=== PATIENT | female | born 1995 | race African-American/Black ===

== ENCOUNTER 2017-05-31 12:06 | Emergency (ER) | payer OTHER ==
--- OUTSIDE RECORDS SUMMARY | 2017-05-31 12:08 | XMS REPORT ---
:1995 Author Organization [facility] Address Unavailable , Allergies, Adverse Reactions, Alerts Allergy Name Reaction Description Start Date Severity Status Provider No Known Allergies Jazmine Good Conditions or Problems Problem Name Problem Onset Status Entry Provider Comment Standard Annotate Code Date Date Description 22 weeks V28.9 Active Yamil Encounter for gestation of Tommie unspecified DO screening of mother ABNORMAL 796.5 Active Yamil Abnormal FINDING ON Tommie finding on DO SCREENING screening Encounter for V22.1 Active Yamil Supervision of supervision of Tommie other normal other normal DO , second trimester Hx of bipolar V11.8 Active Yamil Personal affective Tommie history of disorder DO other mental disorders Hx of V12.09 Active Yamil Other personal chlamydial / Tommie history of infection DO infectious and parasitic disease Tobacco use 649.01 Active Yamil Tobacco use disorder Tommie disorder complicating DO complicating , , childbirth, or childbirth, or the the puerperium, puerperium, delivered, delivered, with or with or without without mention of mention of antepartum antepartum condition condition Medication List Medication Instructions Start Stop Generic NDC Status Provider Patient Date Date Name Instruction VITAFOL ULTRA take 1 PRENAT-FE [id number] Active Yamil Active 29-0.6-0.4-200 capsule [id number]-CM-DHA Reilly MG CAPS daily DO Vital Signs Date Name Value Unit Range Description blood pressure, diastolic 68 mm[Hg] BP mclaughlin blood pressure, systolic 113 mm[Hg] BP sys height E&M 68 [in_us] Bdy height pulse rate E&M 72 /min Heart rate respiratory rate E&M 16 /min Resp rate temperature E&M 98.1 [degF] Body temperature weight E&M 163.13 [lb_av] Weight Measured Diagnostic Results Date Name Value Unit Range Description Office Visit: Return Visit 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
--- OUTSIDE RECORDS SUMMARY | 2017-05-31 12:08 | XMS REPORT ---
:1995 Author Organization [facility] Address [address] [place] [address] Dr. Kraft [address] [place] [id number] Care Team Providers Name Role Phone UNKNOWN, REFFERING Primary Care Provider Unavailable Problems This patient has no known problems. Allergies, Adverse Reactions, Alerts This patient has no known allergies or adverse reactions. Medications This patient has no known medications. Encounters Start End Encounter Admission Attending Care Care Encounter Date/Time Date/Time Type Type Clinicians Facility Department ID 2017-06-02 2017-06-02 Outpatient [facility] [id number] 00:00:00 00:00:00 2016-12-05 2016-12-05 Outpatient [facility] [id number] 00:00:00 00:00:00 2016-12-05 2016-12-05 Outpatient [facility] [id number] 00:00:00 00:00:00 2016-11-28 2016-11-28 Outpatient [facility] [id number] 00:00:00 00:00:00 2016-11-26 2016-11-26 Outpatient [facility] [id number] 16:32:00 16:32:00 2016-11-26 2016-11-26 Outpatient [facility] [id number] 00:00:00 00:00:00 2016-11-13 2016-11-13 Emergency [facility] [id number] 02:04:55 02:04:55 2016-08-25 2016-08-25 Emergency [facility] [id number] 13:00:00 13:00:00
[2017-05-31] MEDS ORDERED: METOCLOPRAMIDE 10 MG/2mL INJ ONE (13:00)
[2017-05-31] MEDS ORDERED: ACETAMINOPHEN 500 MG TAB ONE (13:09)
[2017-05-31 13:10] LABS: Absolute Lymphocytes (CBC) 1.7 K/uL (0.7-4.9); Absolute Monocytes 0.6 K/uL (0.1-1.3); Basophils % 0.4 % (0-1.3); Eosinophils % 1.6 % (0-4.4); Hematocrit 38.7 % (36.0-45.0); Lymphocytes % 31.3 % (15.3-44.8); MCH 30.6 pg (27.0-35.0); MCV 93.7 fL (80-100); MPV 8.8 fL (7.6-11.3); Monocytes % 10.5 % (3.3-12.3); RBC Red Blood Cell Count 4.14 M/uL (3.86-4.86)
[2017-05-31 13:24] LABS: BUN Blood Urea Nitrogen 10 mg/dL (6-20); Bicarbonate 22 mEq/L (21-31); Glomerular Filtration Rate > 90 mL/min (=/>90); Glucose Level 78 mg/dL (65-120); Potassium 3.5 mEq/L (3.6-5.0); Sodium Level 135 mEq/L (135-145)
[2017-05-31 13:28] LABS: Urine Blood 3+ (NEG); Urine Glucose NEGATIVE (NEG); Urine Protein 1+ (NEG)
--- NOTE | 2017-05-31 13:28 | ER ---
Nurse's Notes [facility] Name: Tenzin Snider Age: 21 yrs Sex: Female : 1995 Arrival Date: 05/31/2017 Time: 12:07 Bed 14 Private MD: Diagnosis: Threatened Presentation: 05/31 12:09 Presenting complaint: Patient states: Vaginal spotting and severe abdominal cramping aj1 that started this morning, she has taken a test which was positive but has not seen PHP ARCHITECT yet. States she is unsure is her LMP was Mar 16, 2017 or Apr 16, 2017. Transition of care: patient was not received from another setting of care. Onset of symptoms was May 31, 2017. Care prior to arrival: None. 12:09 Method Of Arrival: EMS: [facility] aj1 12:09 Acuity: CORI 3 aj1 Triage Assessment: 12:09 General: Appears distressed, uncomfortable, Behavior is cooperative, restless. Pain: aj1 Complains of pain in left lower quadrant and right lower quadrant Pain radiates to left upper quadrant Pain currently is 10 out of 10 on a pain scale. Quality of pain is described as crampy. : Reports vaginal bleeding that is spotty. PHP ARCHITECT: 12:08 2, 0, Living 1 kb 12:09 Patient states she is unsure if her LMP was Mar 16 or Apr 16 aj1 - Immunization history:: Adult Immunizations not up to date. - Social history:: Smoking status: Patient uses tobacco products, 3 cigarettes/day. Screenin:20 Abuse screen: Denies threats or abuse. Denies injuries from another. Nutritional jl7 screening: No deficits noted. Tuberculosis screening: No symptoms or risk factors identified. Fall Risk IV access (20 points). Total Kwan Fall Scale indicates No Risk (0-24 pts). Assessment: 12:20 General: Appears uncomfortable, Behavior is anxious, crying. Pain: Complains of pain in jl7 right lower quadrant and left lower quadrant Pain radiates to left upper quadrant Pain currently is 7 out of 10 on a pain scale. Quality of pain is described as crampy, Is intermittent. Neuro: Level of Consciousness is awake, alert, obeys commands, Oriented to person, place, time, situation. Cardiovascular: Patient's skin is warm and dry. Respiratory: Airway is patent Respiratory effort is even, unlabored, Respiratory pattern is symmetrical, tachypnea. GI:. GI: Abdomen is flat, non-distended, Bowel sounds present X 4 quads. : Reports vaginal bleeding that is spotty, since this morning. Derm: Skin is dry, Skin is normal, Skin temperature is warm. 13:32 Reassessment: Patient states that she wants to leave, she does not want to wait for aj1 test results because she is hungry and tired. Explained to patient that results are not back and full work up is needed to rule out tubal and risk of rupture of fallopian tubes. Patient states that she still wants to leave. Notified Rocco Marie NP who spoke with patient. Patient states that she still wants to leave. AMA form was provided and signed by patient. Patient and her were instructed to return to the emergency room immediately if symptoms worsen. Vital Signs: 12:09 BP 126 / 89; Pulse 69; Resp 22; Temp 98.2; Pulse Ox 99% on R/A; Weight 72.57 kg; Height aj1 5 ft. 8 in. (172.72 cm); Pain 10/10; 12:09 Body Mass Index 24.33 (72.57 kg, 172.72 cm) aj1 ED Course: 12:07 Patient arrived in ED. kb 12:09 Lottie Menchaca, RN is Primary Nurse. aj1 12:09 Arm band placed on. aj1 12:11 Triage completed. aj1 12:11 Israel Jones, SERAFIN is Primary Nurse. jl7 12:11 Delmi Marie FNP-C is PHCP. kb 12:11 Rafael Guthrie MD is Attending Physician. kb 12:20 Patient has correct armband on for positive identification. Bed in low position. Call jl7 light in reach. Side rails up X 1. Pulse ox on. NIBP on. Warm blanket given. 12:30 Missed attempt(s): 20 gauge in right forearm. Bleeding controlled, band aid applied, jl7 catheter tip intact. 12:35 Missed attempt(s): 22 gauge in left hand. Bleeding controlled, band aid applied, jl7 catheter tip intact. 12:47 Inserted saline lock: 22 gauge in right hand, using aseptic technique. jl7 13:03 Initial lab(s) drawn, by me, sent to lab. Urine collected: clean catch specimen, cloudy.jl7 13:35 IV discontinued, intact, bleeding controlled, No redness/swelling at site. Pressure aj1 dressing applied. Administered Medications: 12:15 Drug: Tylenol 1000 mg Route: PO; jl7 12:15 Drug: Reglan 10 mg Route: IVP; Site: right hand; jl7 Point of Care Testing: Urine : 12:48 hCG Reading: Positive; Control Reading: Negative; jl7 Outcome: 13:35 AMA AMA form signed aj1 13:35 Condition: stable 13:35 Discharge instructions given to patient, Instructed on return to ER immediately if symptoms worsen 13:38 Patient left the ED. jl7 Signatures: Delmi Marie, LILIAM-C LILIAM-Lottie Meek RN RN aj1 Israel Jones RN RN jl7
--- NOTE | 2017-05-31 13:28 | EDPHYS ---
Physician Documentation [facility] Name: Tenzin Snider Age: 21 yrs Sex: Female : 1995 Arrival Date: 05/31/2017 Time: 12:07 Bed 14 Private MD: ED Physician Rafael Guthrie HPI: 05/31 12:08 This 21 yrs old Black Female presents to ER via Unassigned with complaints of abd kb cramping, spotting. 12:08 The patient presents to the emergency department with abdominal pain, of the right kb lower quadrant and left lower quadrant, that started this morning, described as constant, crampy, vaginal bleeding, described as spotting. course: care: none, Leakage of Fluid: none appreciated, Ultrasound: the patient has not had an ultrasound, Risk/complications: no obvious risks or complications are appreciated. Previous pregnancies: in previous pregnancies patient has had. Associated signs and symptoms: Pertinent positives: abdominal pain, vaginal bleeding, Pertinent negatives: chest pain, diarrhea, dysuria, fever, frequency, nausea, ruptured membranes, seizure, shortness of breath, vaginal discharge, vomiting. The patient has not experienced similar symptoms in the past. The patient has not recently seen a physician. Pt reports abd cramping, then spotting. All started this morning. 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 - Social history:: Smoking status: Patient uses tobacco products, 3 cigarettes/day. ROS: 12:08 Constitutional: Negative for fever, chills, and weight loss, Cardiovascular: Negative kb for chest pain, palpitations, and edema, Respiratory: Negative for shortness of breath, cough, wheezing, and pleuritic chest pain, Back: Negative for injury and pain, MS/Extremity: Negative for injury and deformity, Skin: Negative for injury, rash, and discoloration, Neuro: Negative for headache, weakness, numbness, tingling, and seizure. 12:08 Abdomen/GI: Positive for abdominal cramps. 12:08 : Positive for vaginal bleeding. Exam: 12:08 Constitutional: This is a well developed, well nourished patient who is awake, alert, kb and in no acute distress. Head/Face: Normocephalic, atraumatic. Chest/axilla: Normal chest wall appearance and motion. Nontender with no deformity. No lesions are appreciated. Cardiovascular: Regular rate and rhythm with a normal S1 and S2. No gallops, murmurs, or rubs. Normal PMI, no JVD. No pulse deficits. Respiratory: Lungs have equal breath sounds bilaterally, clear to auscultation and percussion. No rales, rhonchi or wheezes noted. No increased work of breathing, no retractions or nasal flaring. Abdomen/GI: Soft, non-tender, with normal bowel sounds. No distension or tympany. No guarding or rebound. No evidence of tenderness throughout. Skin: Warm, dry with normal turgor. Normal color with no rashes, no lesions, and no evidence of cellulitis. MS/ Extremity: Pulses equal, no cyanosis. Neurovascular intact. Full, normal range of motion. Neuro: Awake and alert, GCS 15, oriented to person, place, time, and situation. Cranial nerves II-XII grossly intact. Motor strength 5/5 in all extremities. Sensory grossly intact. Cerebellar exam normal. Normal gait. Vital Signs: 12:09 BP 126 / 89; Pulse 69; Resp 22; Temp 98.2; Pulse Ox 99% on R/A; Weight 72.57 kg; Height aj1 5 ft. 8 in. (172.72 cm); Pain 10/10; 12:09 Body Mass Index 24.33 (72.57 kg, 172.72 cm) aj1 MDM: 12:07 Patient medically screened. 12:08 Data reviewed: vital signs, nurses notes. Data interpreted: Pulse oximetry: on room air kb is 100 %. Interpretation: normal. 13:24 ED course: Pt states she wants to leave. States "I'm hungry and tired. I will just make kb an appt with my OB to see if I'm still . I know its a miscarriage." Educated on risks of leaving AMA. Verbal understanding received. . 05/31 12:07 Order name: Quantitative Hcg kb 05/31 12:07 Order name: Abo/rh Typing kb 05/31 12:07 Order name: Basic Metabolic Panel 05/31 12:07 Order name: CBC with Diff 05/31 12:45 Order name: Urine Dipstick--Ancillary (enter results) ag 05/31 12:45 Order name: Urine --Ancillary (enter results) ag 05/31 13:12 Order name: CBC with Automated Diff; Complete Time: 13:12 [facility] 05/31 13:24 Order name: Basic Metabolic Panel [facility] 05/31 13:26 Order name: ABO/RH no charge; Complete Time: 13:27 [facility] 05/31 13:28 Order name: Urine --Ancillary; Complete Time: 13:28 [facility] 05/31 13:28 Order name: Urine Dipstick-Ancillary; Complete Time: 13:28 [facility] 05/31 13:30 Order name: ABO/RH typing [facility] 05/31 12:07 Order name: Urine Test (obtain specimen); Complete Time: 13:27 kb 05/31 12:07 Order name: IV Saline Lock; Complete Time: 13:27 kb 05/31 12:07 Order name: Labs collected and sent; Complete Time: 13:27 kb 05/31 12:07 Order name: NPO; Complete Time: 13:27 kb 05/31 12:07 Order name: Urine Dipstick-Ancillary (obtain specimen); Complete Time: 13:27 kb Administered Medications: 12:15 Drug: Tylenol 1000 mg Route: PO; jl7 12:15 Drug: Reglan 10 mg Route: IVP; Site: right hand; jl7 Point of Care Testing: Urine : 12:48 hCG Reading: Positive; Control Reading: Negative; jl7 Disposition: 06/01 10:44 Co-signature as Attending Physician, Rafael Guthrie MD I agree with the assessment and coleman plan of care. Disposition: 05/31/17 13:28 Patient has left against medical advice. Impression: Threatened . - Patients states they are going to Home. - Condition is Stable. Follow up: Emergency Department; When: As needed; Reason: Worsening of condition. Follow up: Private Physician; When: 2 - 3 days; Reason: Recheck today's complaints, Continuance of care, Re-evaluation by your physician. - Problem is new. - Symptoms have improved. Signatures: Dispatcher [employer] [facility] Delmi Marie, RADHA RICKETTS-Lottie Meek RN RN aj1 Rafael Guthrie MD MD cha Leal, Jahala, RN RN jl7
[2017-05-31 13:46] VITALS: BP 126/89; TEMP 98.2; O2SAT 99
== END 2017-05-31 13:38 | disposition left against medical advice (07) ==
LOC: ER 12:06
DX: O20.0 Threatened abortion (principal); Z72.0 Tobacco use
CPT/HCPCS: 36415; 80048; 81003; 81025; 84702; 85025; 86900; 86901; 96374; 99284; J2765

== ENCOUNTER 2019-03-06 15:24 | Emergency (ER) | payer OTHER ==
--- OUTSIDE RECORDS SUMMARY | 2019-03-06 15:26 | XMS REPORT ---
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
--- OUTSIDE RECORDS SUMMARY | 2019-03-06 15:26 | XMS REPORT ---
:1995 Author Organization [facility] Address [address] [place] [address] Dr. Kraft [address] [place] [address] Care Team Providers Name Role Phone UNKNOWN, REFFERING Primary Care Provider Unavailable Problems This patient has no known problems. Allergies, Adverse Reactions, Alerts This patient has no known allergies or adverse reactions. Medications This patient has no known medications. Encounters Start End Encounter Admission Attending Care Care Encounter Date/Time Date/Time Type Type Clinicians Facility Department ID 2017-09-29 2017-09-29 Outpatient [facility] [id number] 17:11:19 17:11:19 2017-06-02 2017-06-02 Emergency [facility] [id number] 20:36:43 20:36:43 2017-06-02 2017-06-02 Outpatient [facility] [id number] 00:00:00 00:00:00 2016-12-05 2016-12-05 Outpatient [facility] [id number] 00:00:00 00:00:00 2016-12-05 2016-12-05 Outpatient [facility] [id number] 00:00:00 00:00:00 2016-11-28 2016-11-28 Outpatient [facility] [id number] 00:00:00 00:00:00 2016-11-26 2016-11-26 Outpatient [facility] [id number] 16:32:00 16:32:00 2016-11-26 2016-11-26 Outpatient [facility] [id number] 00:00:00 00:00:00 2016-11-13 2016-11-13 Emergency [facility] [id number] 02:04:55 02:04:55 2016-08-25 2016-08-25 Emergency [facility] [id number] 13:00:00 13:00:00 Results Test Description Test Time Test Comments Text Results Atomic Results Result Comments CBC W/AUTO DIFF 2018-09-30 20:53:00 Test Item Value Reference Range Comments WHITE BLOOD CELL (test code=WBC) 8.7 x10 3/uL 3.2-11.5 RED BLOOD CELL (test code=RBC) 3.80 x10(6)/m 3.70-5.10 HEMOGLOBIN (test code=HGB) 11.8 g/dL 12.0-15.0 HEMATOCRIT (test code=HCT) 34.7 % 35.7-44.8 MEAN CELL VOLUME (test code=MCV) 91 fL 80-100 MEAN CELL HGB (test code=MCH) 31.2 pg 26.2-33.8 MEAN CELL HGB CONCENTRATION (test code=MCHC) 34.1 g/dL 30.0-34.0 RED CELL DISTRIBUTION WIDTH (test code=RDW) 14.6 % 11.3-14.5 PLATELET COUNT (test code=PLT) 194 x10 3/uL 130-408 MEAN PLATELET VOLUME (test code=MPV) 7.9 fl 6.4-10.5 NEUTROPHIL % (test code=NT%) 61.2 % 40.0-70.0 LYMPHOCYTE % (test code=LY%) 22.9 % 20-40 MONOCYTE % (test code=MO%) 15.5 % 1-10 EOSINOPHIL % (test code=EO%) 0.1 % 1.0-5.0 BASOPHIL % (test code=BA%) 0.3 % 0.0-1.0 NEUTROPHIL # (test code=NT#) 5.3 x10 3/uL 1.6-7.2 LYMPHOCYTE # (test code=LY#) 2.00 x10 3/uL 1.1-2.7 MONOCYTE # (test code=MO#) 1.3 x10 3/uL 0.3-0.8 EOSINOPHIL # (test code=EO#) 0.0 x10 3/uL 0.0-0.5 BASOPHIL # (test code=BA#) 0.0 x10 3/uL 0.0-0.1 BASIC METABOLIC [id number] 20:11:00 Test Item Value Reference Range Comments SODIUM (test code=NA) 133 mmol/L 135-145 POTASSIUM (test code=K) 3.1 mmol/L 3.6-5.0 CHLORIDE (test code=CL) 103 mmol/L 101-111 CARBON DIOXIDE (test 15 mmol/L 21-31 code=CO2) GLUCOSE (test code=GLU) 83 mg/dl 70-100 BLOOD UREA NITROGEN (test 5 mg/dl 6-20 code=BUN) GLOMERULAR FILTRATION >=60 max estimate >60 The estimated glomerular RATE (test code=GFR) filtration rate is computed usingpatient race, age (>18), sex, and serum creatinine. If anyof the needed data elements are missing the Laboratory cannot compute an estimation of the glomerular filtration rate. CREATININE (test 0.70 mg/dL 0.44-1.03 code=CREAT) CALCIUM (test code=CA) 9.5 mg/dL 8.5-10.5 LIVER FUNCTION [id number] 20:11:00 Test Item Value Reference Range Comments TOTAL PROTEIN (test code=PROT) 7.5 g/dL 6.7-8.2 ALBUMIN (test code=ALB) 4.0 g/dL 3.2-5.5 BILIRUBIN TOTAL (test code=BILT) 1.30 mg/dL 0.2-1.3 BILIRUBIN DIRECT (test code=BILD) 0.2 mg/dL 0.00-0.20 SGOT/AST (test code=AST) 25 U/L 10-42 SGPT/ALT (test code=ALT) 14 U/L 10-60 ALKALINE PHOSPHATASE (test code=ALKP) 46 U/L 42-121 [id number] 20:11:00 Test Item Value Reference Range Comments ALCOHOL (test code=ALC) 6 mg/dl Interpretive Data:il: Ethanol Level To convert into legal units, divide result by 1,000 DRUGS OF ABUSE SCREEN [id number] 19:58:00 Test Item Value Reference Range Comments UR COCAINE (test code=COCAU) NEGATIVE NEGATIVE This is a toxicology qualitative screening test only. Ifconfirmatory testing is desired please request drug screenconfirmation. These results are unconfirmed and should beused only for medical purposes. Cut-off concentration for Cocaine is 300 ng/mLRecommended screening cut-off concentrations by the[facility] Abuse and Mental Health Services Administration. UR CANABINOIDS (test POSITIVE NEGATIVE This is a toxicology qualitative code=CANU) screening test only. Ifconfirmatory testing is desired please request drug screenconfirmation. These results are unconfirmed and should beused only for medical purposes. Cut-off concentration for THC is 50 ng/mLRecommended screening cut-off concentrations by theSubstance Abuse and Mental Health Services Administration. UR AMPHETAMINE (test POSITIVE NEGATIVE The ingestion of natural herbal code=AMPHU) and plant productscontaining Ephedra/Ephedra-Metabolites can produce in urineone or more substances capable of cross-reacting withAmphetamine/Methamphetamine immunoassays. This testprovides a preliminary result only. A more specificalternative chemical method must be used to obtain aconfirmed analytical result. This is a toxicology qualitative screening test only. Ifconfirmatory testing is desired please request drug screenconfirmation. These results are unconfirmed and should beused only for medical purposes. Cut-off concentration for Amphetamines is 1000 ng/mLRecommended screening cut-off concentrations by thebstance Abuse and Mental Health Services Administration. UR BARBITURATE (test NEGATIVE NEGATIVE This is a toxicology qualitative code=BARBQLU) screening test only. Ifconfirmatory testing is desired please request drug screenconfirmation. These results are unconfirmed and should beused only for medical purposes. Cut-off concentration for Barbiturates is 200 ng/mLRecommended screening cut-off concentrations by theSubstance Abuse and Mental Health Services Administration. UR BENZODIAZEPINE (test NEGATIVE NEGATIVE This is a toxicology qualitative code=BENZU) screening test only. Ifconfirmatory testing is desired please request drug screenconfirmation. These results are unconfirmed and should beused only for medical purposes. Cut-off concentration for Benzodiazepines is 200 ng/mLRecommended screening cut-off concentrations by theSubstance Abuse and Mental Health Services Administration. UR OPIATES QUAL (test NEGATIVE NEGATIVE This is a toxicology qualitative code=OPIAQLU) screening test only. Ifconfirmatory testing is desired please request drug screenconfirmation. These results are unconfirmed and should beused only for medical purposes. Cut-off concentration for Opiates is 300 ng/mLRecommended screening cut-off concentrations by theSubstance Abuse and Mental Health Services Administration. UR PHENCYCLIDINE (PCP) (test NEGATIVE NEGATIVE This is a toxicology qualitative code=PHENCU) screening test only. Ifconfirmatory testing is desired please request drug screenconfirmation. These results are unconfirmed and should beused only for medical purposes. Cut-off concentration for PCP is 25 ng/mLRecommended screening cut-off concentrations by the[facility] Abuse and Mental Health Services Administration. HCG SERUM [id number] 19:53:00 Test Item Value Reference Range Comments HCG SERUM QUAL (test POSITIVE NEGATIVE This is a qualitative screening code=HCGQL) test.The quantitative Bhcg may be helpful.Weakly positive results should be repeated in 48 hours. URINALYSIS [id number] 19:50:00 Test Item Value Reference Range Comments UA COLOR (test code=COLU) YELLOW YELLOW UA APPEARANCE (test code=APPU) Cloudy CLEAR UA GLUCOSE DIPSTICK (test code=DGLUU) NEGATIVE NEGATIVE UA BILIRUBIN DIPSTICK (test code=BILU) NEGATIVE NEGATIVE UA KETONE DIPSTICK (test code=KETU) Trace NEGATIVE UA SPECIFIC GRAVITY (test code=SGU) 1.008 1.001-1.030 UA BLOOD DIPSTICK (test code=LO) NEGATIVE NEGATIVE UA PH DIPSTICK (test code=VADIM) 7.0 5.0-9.0 UA PROTEIN DIPSTICK (test code=PROU) NEGATIVE NEGATIVE UA UROBILINOGEN DIPSTICK (test code=URO) NEGATIVE <=1.0 UA NITRITE DIPSTICK (test code=HOLDEN) NEGATIVE NEGATIVE UA ASCORBIC ACID DIPSTICK (test code=AAU) NEGATIVE UA LEUKOCYTE ESTERASE DIPSTICK (test code=LEUU) 1+ NEGATIVE UA WBC (test code=WBCU) 0-5 /HPF 0-5 UA RBC (test code=RBCU) 0-5 /HPF 0-5 UA EPITHELIAL CELLS (test code=EPIU) MANY /LPF NONE-FEW UA BACTERIA (test code=BACU) 1+ /HPF NONE SEEN UA MUCUS (test code=MUCU) 1+ /LPF NONE SEEN
[2019-03-06 16:01] LABS: Basophils % 0.4 % (0-1.3); Hematocrit 32.1 % (36.0-45.0); Lymphocytes % 21.9 % (15.3-44.8); MPV 8.5 fL (7.6-11.3); RBC Red Blood Cell Count 3.39 M/uL (3.86-4.86)
[2019-03-06 16:05] LABS: Protime INR 0.98
[2019-03-06 16:27] LABS: ALT/SGPT 17 U/L (12-78); AST/SGOT 14 U/L (15-37); Albumin 2.9 g/dL (3.4-5.0); Alkaline Phosphatase 94 U/L (45-117); BUN Blood Urea Nitrogen 6 mg/dL (7-18); Bicarbonate 22 mmol/L (21-32); Bilirubin Direct < 0.1 mg/dL (0-0.2); Bilirubin Total 0.4 mg/dL (0.2-1.0); Glucose Level 86 mg/dL (74-106); Potassium 3.8 mmol/L (3.5-5.1); Protein, Total 6.7 g/dL (6.4-8.2); Sodium Level 140 mmol/L (136-145)
[2019-03-06] MEDS ORDERED: hydrOXYzine HCL 25 MG TAB ONE (16:35)
[2019-03-06 16:51] LABS: Barbiturates NEGATIVE (NEGATIVE); Benzodiazepines NEGATIVE (NEGATIVE); Cocaine NEGATIVE (NEGATIVE); METHAMPHETAM NEGATIVE (NEGATIVE); Methadone NEGATIVE (NEGATIVE); Opiates NEGATIVE (NEGATIVE); Phencyclidine NEGATIVE (NEGATIVE); THC Cannibis POSITIVE (NEGATIVE)
[2019-03-06 16:52] LABS: Urine Blood TRACE (NEG); Urine Glucose NEGATIVE (NEG); Urine Protein NEGATIVE (NEG); Urine Specific Gravity 1.025 (1.005-1.030); Urine pH 6.5 (5.0-7.0)
--- NOTE | 2019-03-06 21:28 | EDPHYS ---
Physician Documentation [facility] Name: Tenzin Snider Age: 23 yrs Sex: Female : 1995 Arrival Date: 03/06/2019 Time: 15:27 Bed 17 Private MD: ED Physician Jered Suh HPI: 03/06 16:59 This 23 yrs old Black Female presents to ER via Wheelchair with complaints of Suicidal jr8 Ideation. 16:59 The patient presents to the emergency department with suicide ideation, but the patient jr8 has no formulated plan. Onset: The symptoms/episode began/occurred acutely, today. Past psychiatric history: Prior diagnosis: bipolar disorder, schizophrenia. Associated signs and symptoms: The patient has no apparent associated signs or symptoms. Severity of symptoms: At their worst the symptoms were moderate in the emergency department the symptoms have improved. The patient has experienced similar episodes in the past, several times. The patient has not recently seen a physician. Patient currently 33 weeks with history of schizophrenia and bipolar. Has been off meds for a few years due to [id number] pregnancies. Stated that she has disputes with family members that cause her to acutely get worse and react. Stated that she had fight with little brother today. Had to remover herself from the environment before she hurt herself or others. Came to ED for help. 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 - Social history:: Smoking status: Patient uses tobacco products, 2-3 cigarettes a day. - Ebola Screening: : Patient negative for fever greater than or equal to 101.5 degrees Fahrenheit, and additional compatible Ebola Virus Disease symptoms Patient denies exposure to infectious person Patient denies travel to an Ebola-affected area in the 21 days before illness onset No symptoms or risks identified at this time. ROS: 16:59 Eyes: Negative for injury, pain, redness, and discharge, ENT: Negative for injury, jr8 pain, and discharge, Neck: Negative for injury, pain, and swelling, Cardiovascular: Negative for chest pain, palpitations, and edema, Respiratory: Negative for shortness of breath, cough, wheezing, and pleuritic chest pain, Abdomen/GI: Negative for abdominal pain, nausea, vomiting, diarrhea, and constipation, Back: Negative for injury and pain, MS/Extremity: Negative for injury and deformity, Skin: Negative for injury, rash, and discoloration, Neuro: Negative for headache, weakness, numbness, tingling, and seizure. 16:59 Psych: Positive for anxiety, suicidal ideation. Exam: 16:59 Eyes: Pupils equal round and reactive to light, extra-ocular motions intact. Lids and jr8 lashes normal. Conjunctiva and sclera are non-icteric and not injected. Cornea within normal limits. Periorbital areas with no swelling, redness, or edema. ENT: Nares patent. No nasal discharge, no septal abnormalities noted. Tympanic membranes are normal and external auditory canals are clear. Oropharynx with no redness, swelling, or masses, exudates, or evidence of obstruction, uvula midline. Mucous membranes moist. Neck: Trachea midline, no thyromegaly or masses palpated, and no cervical lymphadenopathy. Supple, full range of motion without nuchal rigidity, or vertebral point tenderness. No Meningismus. Cardiovascular: Regular rate and rhythm with a normal S1 and S2. No gallops, murmurs, or rubs. Normal PMI, no JVD. No pulse deficits. Respiratory: Lungs have equal breath sounds bilaterally, clear to auscultation and percussion. No rales, rhonchi or wheezes noted. No increased work of breathing, no retractions or nasal flaring. Abdomen/GI: Soft, non-tender, with normal bowel sounds. No distension or tympany. No guarding or rebound. No evidence of tenderness throughout. Back: No spinal tenderness. No costovertebral tenderness. Full range of motion. Skin: Warm, dry with normal turgor. Normal color with no rashes, no lesions, and no evidence of cellulitis. MS/ Extremity: Pulses equal, no cyanosis. Neurovascular intact. Full, normal range of motion. Neuro: Awake and alert, GCS 15, oriented to person, place, time, and situation. Cranial nerves II-XII grossly intact. Motor strength 5/5 in all extremities. Sensory grossly intact. Cerebellar exam normal. Normal gait. 16:59 Psych: Behavior/mood is cooperative, anxious, Affect is calm, Oriented to person, place, time, Patient has no thoughts/intents to harm self or others. Judgement / Insight is normal. Memory is normal. Delusions/hallucinations are not present. Currently feeling better. No longer suicidal and does not want to hurt anyone . Vital Signs: 15:37 BP 112 / 62; Pulse 97; Resp 17 S; Temp 98.1(O); Pulse Ox 98% on R/A; Weight 83.91 kg ca1 (R); Height 5 ft. 8 in. (172.72 cm) (R); Pain 0/10; 19:56 BP 105 / 68; Pulse 80; Resp 18; Temp 98.3(O); Pulse Ox 98% on R/A; jb5 15:37 Body Mass Index 28.13 (83.91 kg, 172.72 cm) ca1 MDM: 15:40 Patient medically screened. [facility] 17:54 Data reviewed: vital signs, nurses notes, lab test result(s), EKG. Data interpreted: [facility] Pulse oximetry: on room air is 98 %. Interpretation: normal. Counseling: I had a detailed discussion with the patient and/or guardian regarding: the historical points, exam findings, and any diagnostic results supporting the discharge/admit diagnosis, lab results. ED course: Patient medically cleared and doing better. Awaiting [facility] to come and further evaluate patient . 21:26 ED course: Spoke with [facility] who accepted patient . [facility] 03/06 15:39 Order name: Acetaminophen; Complete Time: 16:59 03/06 15:39 Order name: Basic Metabolic Panel; Complete Time: 16:59 03/06 15:39 Order name: CBC with Diff; Complete Time: 16:24 03/06 15:39 Order name: ETOH Level; Complete Time: 16:38 03/06 15:39 Order name: Hepatic Function; Complete Time: 16:59 03/06 15:39 Order name: PT-INR; Complete Time: 16:24 03/06 15:39 Order name: Ptt, Activated; Complete Time: 16:24 03/06 15:39 Order name: Salicylate; Complete Time: 16:38 [facility] 03/06 15:39 Order name: Urine Drug Screen; Complete Time: 16:59 8 03/06 15:39 Order name: EKG; Complete Time: 15:41 [facility] 03/06 15:39 Order name: EKG - Nurse/Tech; Complete Time: 15:56 [facility] 03/06 16:32 Order name: Urine Dipstick--Ancillary (enter results); Complete Time: 16:59 bd 03/06 16:48 Order name: Diet Regular; Complete Time: 16:48 dh3 03/06 15:39 Order name: IV Saline Lock; Complete Time: 15:57 [facility] 03/06 15:39 Order name: Labs collected and sent; Complete Time: 15:57 [facility] 03/06 15:39 Order name: Urine Dipstick-Ancillary (obtain specimen); Complete Time: 16:35 [facility] Administered Medications: 16:36 Drug: Atarax 50 mg Route: PO; tw2 17:30 Follow up: Response: No adverse reaction tw2 Disposition: 03/07 07:36 Co-signature as Attending Physician, Jered Suh MD I agree with the assessment and kdr plan of care. Disposition: 03/06/19 21:27 Transfer ordered to [facility]. Diagnosis are Suicidal ideations, Schizophrenia, Auditory hallucinations. - Reason for transfer: Higher level of care. - Accepting physician is Dr. Lopez. - Condition is Stable. - Problem is new. - Symptoms have improved. Signatures: Dispatcher [employer] EDMS Jered Suh MD MD [facility] Renetta Cano RN RN lp1 Sanjay Miller PA PA 8 Vita Sanchez RN RN tw2 Valorie Butler RN RN ca1 Corrections: (The following items were deleted from the chart) 03/06 15:42 15:37 PMHx: None; ca1 ca1 16:31 15:39 FHT's ordered. [facility] 21:32 21:27 03/06/2019 21:27 Transfer ordered to [facility]. Diagnosis is jr8 Suicidal ideations; Schizophrenia; Auditory hallucinations. Reason for transfer: Higher level of care. Accepting physician is [facility]. Condition is Stable. Problem is new. Symptoms have improved. [facility] 23:37 21:32 03/06/2019 21:27 Transfer ordered to [facility]. Diagnosis is lp1 Suicidal ideations; Schizophrenia; Auditory hallucinations. Reason for transfer: Higher level of care. Accepting physician is Dr. Lopez. Condition is Stable. Problem is new. Symptoms have improved. jr8
--- NOTE | 2019-03-06 21:28 | ER ---
Nurse's Notes [facility] Name: Tenzin Snider Age: 23 yrs Sex: Female : 1995 Arrival Date: 03/06/2019 Time: 15:27 Bed 17 Private MD: Diagnosis: Suicidal ideations;Schizophrenia;Auditory hallucinations Presentation: 03/06 15:28 Presenting complaint: Patient states: "I called the safety council director for my mental health issues. ca1 For being homicidal and suicidal". Denies previous attempts on hurting self but states, "Sometimes, I just don't want to be here anymore". Denies on previous attempt on hurting others, but states, "Every time I argue with my parents or my brother I think of hurting my brother. My thoughts scared me that I came in to ask for help". Transition of care: patient was not received from another setting of care. Onset of symptoms. Risk Assessment: Do you want to hurt yourself or someone else? Patient reports desire/thoughts of hurting themselves or someone else. Provider notified. Initial Sepsis Screen: Does the patient meet any 2 criteria? No. Patient's initial sepsis screen is negative. Does the patient have a suspected source of infection? No. Patient's initial sepsis screen is negative. Care prior to arrival: Pt was seen at [facility]) to check obstetric health and the baby. 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 - Social history:: Smoking status: Patient uses tobacco products, 2-3 cigarettes a day. - Ebola Screening: : Patient negative for fever greater than or equal to 101.5 degrees Fahrenheit, and additional compatible Ebola Virus Disease symptoms Patient denies exposure to infectious person Patient denies travel to an Ebola-affected area in the 21 days before illness onset No symptoms or risks identified at this time. Screenin:50 Abuse screen: Denies threats or abuse. Nutritional screening: No deficits noted. tw2 Tuberculosis screening: No symptoms or risk factors identified. Fall Risk None identified. Assessment: 15:50 General: Appears in no apparent distress. Behavior is calm, cooperative, appropriate tw2 for age. Pain: Denies pain. Neuro: Level of Consciousness is awake, alert, obeys commands, Oriented to person, place, time, situation. Cardiovascular: Heart tones S1 S2 Capillary refill < 3 seconds Patient's skin is warm and dry. Respiratory: Airway is patent Respiratory effort is even, unlabored, Respiratory pattern is regular, symmetrical, Breath sounds are clear bilaterally. GI: No signs and/or symptoms were reported involving the gastrointestinal system. Abdomen is round pt is and has been cleared with L\\T\\D upstairs, pt states + movement, pt states "the heart rate was good for the baby up stairs" Bowel sounds present X 4 quads. : No signs and/or symptoms were reported regarding the genitourinary system. EENT: No signs and/or symptoms were reported regarding the EENT system. Derm: No signs and/or symptoms reported regarding the dermatologic system. Musculoskeletal: Range of motion: intact in all extremities. 16:45 Reassessment: spoke with L\\T\\D nurse Ever Taylor RN, pt was evaluated for obstetric health, tw2 FHT was 140 bpm. 16:47 Reassessment: Patient appears in no apparent distress at this time. No changes from tw2 previously documented assessment. Patient is alert, oriented x 3, equal unlabored respirations, skin warm/dry/pink. pt is watching her electronic tablet at this time. 17:30 Reassessment: Patient appears in no apparent distress at this time. No changes from tw2 previously documented assessment. Patient is alert, oriented x 3, equal unlabored respirations, skin warm/dry/pink. 18:32 Reassessment: Patient appears in no apparent distress at this time. pt appears to be tw2 sleeping at this time. 18:58 Reassessment: [facility] abap developer at bedside at this time. tw2 19:33 Reassessment: [facility] abap developer at bedside with patient. General: Appears in no apparent lp1 distress. Behavior is calm, cooperative. 20:30 Reassessment: Patient appears in no apparent distress at this time. Patient and/or lp1 family updated on plan of care and expected duration. Pain level reassessed. Patient watching movie on tablet, eating chips, drink. 21:58 Reassessment: Report given to SERAFIN Gonzalez at [facility] for patient transfer. General: lp1 Appears in no apparent distress. Behavior is calm. 23:00 Reassessment: Patient appears in no apparent distress at this time. Patient aware of lp1 waiting for truck for transfer. 23:34 Reassessment: EMS at bedside for transfer. lp1 Psych: 15:38 Subjective: Patient's mood is sad, Delusions are denied, Hallucinations are auditory, ca1 visual, Having thoughts of suicide. Denies suicidal plan. Objective: Patient is cooperative, Speech is normal, Affect is flat. Interventions:. Suicide Risk Assessment: Sad Person Scale: Sex of patient: Female: Score 0 points. Age of patient: Score 1 point if patient 15-34. Depression: Score 1 point if signs of depression are present. Previous Attempt: Score 0 point if patient has not previously attempted suicide. Substance Abuse: Score 1 point if patient abuses alcohol or drugs. Rational Thinking: Score 0 point if patient has rational thinking. Social Support: Score 1 point if social support is lacking and/or unavailable. Organized Plan: Score 0 if patient did not have an organized plan in place. Relationship: Score 1 point if patient is , , , or for a single male Chronic Sickness: Score 0 point if patient does not have a chronic illness, debilitating, or severe disorder. TOTAL POINTS: If total points are 5-6, proposed clinical action is to strongly consider hospitalization, depending upon confidence in the follow-up arrangement. Implement suicide precautions. 15:45 Safety Checks: Personal items have been removed. security secured all belongings except tw2 pts personal electronic tablet, cell phone, and pts glasses. Pt denies substance abuse Patient uses Patient uses benzodiazepines. Commitment: Patient will be a voluntary commitment. Vital Signs: 15:37 BP 112 / 62; Pulse 97; Resp 17 S; Temp 98.1(O); Pulse Ox 98% on R/A; Weight 83.91 kg ca1 (R); Height 5 ft. 8 in. (172.72 cm) (R); Pain 0/10; 19:56 BP 105 / 68; Pulse 80; Resp 18; Temp 98.3(O); Pulse Ox 98% on R/A; jb5 15:37 Body Mass Index 28.13 (83.91 kg, 172.72 cm) ca1 ED Course: 15:27 Patient arrived in ED. mr 15:36 Triage completed. ca1 15:37 Arm band placed on right wrist. ca1 15:38 [facility] jr8 15:38 Jered Suh MD is Attending Physician. jr8 15:45 Safety Checks: Personal items have been removed. pts personal electronic table, tw2 cellphone and eye glasses remain with her The door is open or patient has been placed in a hallway bed/chair. There are no family/friend visitors at this time Sitter present at this time. sitter to remain present at bedside throughout shift. 15:45 Safety checks: Items removed: yes. Door open/sign placed on door: yes. Family/friend dh3 present: no. Sitter present: Yes. 15:49 EKG done, by ED staff, reviewed by Sanjay KRISHNAMURTHY. dh3 15:50 Placed in gown. Bed in low position. tw2 15:55 Inserted saline lock: 20 gauge in left Blood collected. tw2 16:00 Safety checks: Items removed: yes. Door open/sign placed on door: yes. Family/friend dh3 present: no. Sitter present: Yes. 16:15 Safety checks: Items removed: yes. Door open/sign placed on door: yes. Family/friend dh3 present: no. Sitter present: Yes. 16:23 Vita Sanchez RN is Primary Nurse. tw2 16:30 Safety checks: Items removed: yes. Door open/sign placed on door: yes. Family/friend dh3 present: no. Sitter present: Yes. 16:30 Urine collected: clean catch specimen, clear. dh3 16:45 Safety checks: Items removed: yes. Door open/sign placed on door: yes. Family/friend dh3 present: no. Sitter present: Yes. 17:00 Safety checks: Items removed: yes. Door open/sign placed on door: yes. Family/friend dh3 present: no. Sitter present: Yes. 17:05 contacted [facility], will send a screener to evaluate pt. bd 17:15 Safety checks: Items removed: yes. Door open/sign placed on door: yes. Family/friend dh3 present: no. Sitter present: Yes. 17:30 Safety checks: Items removed: yes. Door open/sign placed on door: yes. Family/friend dh3 present: no. Sitter present: Yes. Diet: Patient given a regular meal tray. 17:45 Safety checks: Items removed: yes. Door open/sign placed on door: yes. Family/friend dh3 present: no. Sitter present: Yes. 18:00 Safety checks: Items removed: yes. Door open/sign placed on door: yes. Family/friend dh3 present: no. Sitter present: Yes. 18:15 Safety checks: Items removed: yes. Door open/sign placed on door: yes. Family/friend dh3 present: no. Sitter present: Yes. 18:30 Safety checks: Items removed: yes. Door open/sign placed on door: yes. Family/friend dh3 present: no. Sitter present: Yes. 18:45 Safety checks: Items removed: yes. Door open/sign placed on door: yes. Family/friend dh3 present: no. Sitter present: Yes. 19:00 Safety checks: Items removed: yes. Door open/sign placed on door: yes. Family/friend dh3 present: no. Sitter present: Yes. 19:04 Primary Nurse role handed off by Vita Sanchez RN tw2 19:04 Report given to SERAFIN Jackson. tw2 19:19 Renetta Cano RN is Primary Nurse. lp1 19:19 No provider procedures requiring assistance completed. lp1 19:51 Safety checks: Items removed: Door open/sign placed on door: no. Sitter present: Yes. jb5 20:11 Safety checks: Items removed: yes. Door open/sign placed on door: yes. Family/friend jb5 present: no. Sitter present: Yes. 20:17 Safety checks: Items removed: yes. Door open/sign placed on door: yes. Family/friend jb5 present: no. Sitter present: Yes. Diet: Patient given a regular meal tray. Patient given snack. Tolerated well. 20:33 Safety checks: Items removed: yes. Door open/sign placed on door: yes. Family/friend jb5 present: no. Sitter present: Yes. 20:52 Safety checks: Items removed: yes. Door open/sign placed on door: yes. Family/friend jb5 present: no. Sitter present: Yes. 21:17 Safety checks: Items removed: yes. Door open/sign placed on door: yes. Family/friend jb5 present: no. Sitter present: Yes. Patient given a pillow and more warm blankets. . Patient requested prayer, fuel cell repairerEmma Velez was asked to come into the patients room to pray with her. 21:46 Safety checks: Items removed: yes. Door open/sign placed on door: yes. Family/friend jb5 present: no. Sitter present: Yes. 22:10 Safety checks: Items removed: yes. Door open/sign placed on door: yes. Family/friend jb5 present: no. Sitter present: Yes. 22:45 Safety checks: Items removed: yes. Door open/sign placed on door: yes. Family/friend jb5 present: no. Sitter present: Yes. 23:04 Safety checks: Items removed: yes. Door open/sign placed on door: no. Family/friend jb5 present: no. Sitter present: Yes. 23:17 Safety checks: Items removed: yes. Door open/sign placed on door: no. Family/friend jb5 present: no. Sitter present: Yes. 23:29 Safety checks: Items removed: yes. Door open/sign placed on door: no. Family/friend jb5 present: no. Sitter present: Yes. 23:35 IV discontinued, No redness/swelling at site. Pressure dressing applied. lp1 Administered Medications: 16:36 Drug: Atarax 50 mg Route: PO; tw2 17:30 Follow up: Response: No adverse reaction tw2 Outcome: 21:27 ER care complete, transfer ordered by MD. douglas 23:35 Transferred by ground EMS to [facility], Transfer form completed. X-rays lp1 sent w/ patient. 23:35 Condition: good 23:35 Instructed on the need for transfer. 23:37 Patient left the ED. lp1 Signatures: Rocío Marin Mary mr Pena, Laura, RN RN lp1 Sanjay Miller PA PA jr8 Vita Sanchez RN RN tw2 Sol Siu jb5 Lizz Rosario 3 Valorie Butler RN RN ca1 Corrections: (The following items were deleted from the chart) 15:42 15:37 PMHx: None; ca1 ca1 23:35 20:30 Reassessment: Patient appears in no apparent distress at this time. Patient lp1 and/or family updated on plan of care and expected duration. Pain level reassessed. Patient watching movie on tablet, lp1
[2019-03-07 00:50] VITALS: BP 105/68; TEMP 98.3; O2SAT 98
--- NOTE | 2019-03-07 20:48 | EKG ---
Test Date: 2019-03-06 Test Time: 15:49:29 Celebrity Chef Entrepreneur Media Personality: KEIKO MEASUREMENT RESULTS: Intervals: Rate: 89 AL: 158 QRSD: 90 QT: 340 QTc: 413 [place]: P: 69 AL: 158 QRS: 44 T: 58 INTERPRETIVE STATEMENTS: Normal sinus rhythm Nonspecific T wave abnormality Abnormal ECG No previous ECG available for comparison Electronically Signed On 03-07-19 20:46:47 FLAME CHANNELER by Brent Villa
== END 2019-03-06 23:37 | disposition short-term general hospital (02) ==
LOC: ER 15:24
DX: O99.343 Other mental disorders complicating pregnancy, third trimester (principal); F41.9 Anxiety disorder, unspecified; F20.9 Schizophrenia, unspecified; O99.333 Smoking (tobacco) complicating pregnancy, third trimester; F17.210 Nicotine dependence, cigarettes, uncomplicated; Z3A.33 33 weeks gestation of pregnancy
CPT/HCPCS: 36415; 80048; 80076; 80307; 80320; 80329; 81003; 85025; 85610; 85730; 93005; 99285

== ENCOUNTER 2020-06-18 00:29 | Emergency (ER) | payer OTHER ==
--- OUTSIDE RECORDS SUMMARY | 2020-06-18 00:34 | XMS REPORT | Continuity of Care Document ---
:1995 Author Organization [facility] t Address [address] [place] [address] Care Team Providers Name Role Phone UNKNOWN Primary Care Physician Unavailable Silas RICKETTS Attending Clinician Doctor Unassigned, Name Attending Clinician Unavailable Tomasz Leon DO Attending Clinician Jad Park DO Attending Clinician Susy BETANCOURT, M Attending Clinician Unavailable Visit, Nurse Attending Clinician Unavailable Collins JOHNSON C Attending Clinician Elisa Attending Clinician Connor Attending Clinician Connor Admitting Clinician Problems Condition Condition Condition Status Onset Resolution Last Treating Co mments Source Name Details Category Date Date Treatment Clinician Date OTHERS Diagnosis Active 2017-032017-12-23 Mem oria 0-04 16:48:00 l OTHERS 00:00: Helder 00 Active 12/17/2017 [facility] Diagnosis Active 2016-032017-01-06 Mem oria 0-24 12:15:00 l LABOR 00:00: Helder 00 Active 01/06/2017 [facility] VAGINAL Diagnosis Active 2016-032017-01-15 Me moria DELIVERY 0-24 15:32:00 l VAGINAL 00:00: [facility] DELIVERY 00 Active 01/06/2017 [facility] Nicotine Problem 2018-07-06 Mem oria dependence 16:23:35 l , Nicotine Kavin blum cigarettes dependence , , uncomplica cigarettes tristin , uncomplica tristin 07/06/2018 [facility] Other Problem 2018-07-06 Memor ia mental 16:23:35 l disorders Other Kavin n complicati mental ng disorders , complicati third ng trimester , third trimester 07/06/2018 [facility] Bipolar Problem 2018-07-06 Dewayne beverly disorder, 16:23:35 l unspecifie Bipolar Her antonio d disorder, unspecifie d 07/06/2018 [facility] Anxiety Problem 2018-07-06 Dewayne beverly disorder, 16:23:35 l unspecifie Anxiety Her antonio d disorder, unspecifie d 07/06/2018 [facility] Schizophre Problem 2018-07-06 M emoria jaylen, 16:23:35 l unspecifie Kavin n d Schizophre jaylen, unspecifie d 07/06/2018 [facility] Illness, Problem 2017-01-11 Mem oria unspecifie 01:38:46 l d Illness, Kavin n unspecifie d 01/11/2017 [facility] Anxiety Problem Resolve 2018-07-06 Mem oria (finding) d 16:23:35 l Anxiety [facility] (finding) Resolved Problem 07/06/2018 [facility] Bipolar Problem Resolve 2018-07-06 Mem oria disorder d 16:23:35 l (disorder) Bipolar Her antonio disorder (disorder) Resolved Problem 07/06/2018 [facility] Chronic Problem Resolve 2018-07-06 Mem oria schizophre d 16:23:35 l jaylen Chronic [facility] (disorder) schizophre jaylen (disorder) Resolved Problem 07/06/2018 [facility] ILLNESS, Diagnosis Active 2017-01-06 M emoria UNSPECIFIE 12:15:00 l D ILLNESS, Kavin n UNSPECIFIE D Active [facility] ENCOUNTER Diagnosis Active 2017-01-15 Memoria FOR 15:32:00 l FULL-TERM Helder UNCOMPLICA ENCOUNTER TRISTIN DE FOR FULL-TERM UNCOMPLICA TRISTIN DE Active [facility] Smoking Problem 2018-07-06 Dewayne beverly (tobacco) 16:23:35 l complicati Smoking Her antonio ng (tobacco) , complicati third ng trimester , third trimester 07/06/2018 [facility] Patient Problem Resolve 2016-0 2018-07-06 2018-07-06 Memoria currently d 4-10 16:23:35 16:23:35 l Patient 00:00: Emilia nn (finding) currently 00 (finding) Resolved 06/24/2015 Problem 07/06/2018 [facility] History of Past Illness Condition Condition Condition Status Onset Resolution Last Treating Co mments Source Name Details Category Date Date Treatment Clinician Date Diseases Problem 2017-032018-07-06 2018-07-06 Memoria of the 0-10 16:23:35 16:23:35 l nervous Diseases 03:43: Emilia nn system of the 35 complicati nervous ng system , complicati third ng trimester , third trimester 12/23/2017 07/06/2018 [facility] Peoples's Problem 2017-032018-07-06 2018-07-06 M emoria palsy 0-04 16:23:35 16:23:35 l Peoples's 05:00: Helder palsy 00 12/17/2017 07/06/2018 [facility] 35 weeks Problem 2017-032018-07-06 2018-07-06 Memoria gestation 0-04 16:23:35 16:23:35 l of 35 weeks 05:00: Kavin n gestation 00 of 12/17/2017 07/06/2018 [facility] Allergies, Adverse Reactions, Alerts This patient has no known allergies or adverse reactions. Social History Social Habit Start Date Stop Date Quantity Comments Source Social History 2017-12-18 2017-12-18 [facility] 01:18:03 01:18:03 Medications Ordered Filled Start Stop Current Ordering Indication Dosage Frequency Signature Comments Components Source Medication Medication Date Date Medication? Clinician (SIG) Name Name Prednisone 2017-03 No 50 mg = 1 Me moria 50 MG Oral 0-06 tab, PO, l Tablet 03:18: Daily, X 5 Emilia nn 00 day, # 5 tab, 0 Refill(s) ocular 2017-03 Yes 1 drp, Memoria lubricant 0-05 OPTH, TID, l solution 03:18: PRN for Kavin n 00 dry eyes, # 30 ml, 0 Refill(s) Prednisone 2017-03 No Notes: Memor ia 0-05 Take with l 03:16: food. [facility] 00 risperiDONE 2016-03 Yes 1 mg = 1 Me moria 1 mg oral 0-26 tab, PO, l tablet 14:25: BID, # 60 Kavin n 00 tab, 11 Refill(s) risperiDONE 2016-03 No 1 mg = 1 Me moria 1 mg oral 0-26 tab, PO, l tablet 14:23: BID, # 60 Kavin n 00 tab, 11 Refill(s) ibuprofen 2016-03 Yes 600 mg = 1 Me moria 600 mg oral 0-26 tab, PO, l tablet 14:22: Q6H, # 60 Kavin n 00 tab, 1 Refill(s) Risperdal 2016-03 No Notes: Memori a 0-25 (Same as: l 14:00: Risperdal) [facility] 00 2016-03 No 1 tab, Memoria Multivitami 0-25 Route: PO, l ns oral 14:00: Drug Form: Herm yasmany tablet 00 TAB, Dosing Weight 77.273, kg, Daily, Start date: 01/07/17 9:00:00 CDT, Duration: 30 day, Stop date: 02/05/17 9:00:00 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 M-M-R II 2016-03 No Notes: Memoria 0-24 (Same as: l 23:00: M-M-R II) [facility] 00 (measles-m umps-rubel la virus vaccine 0.5 ml INJ VL) WASTE: F/P - Red; E -Red GIVE PRIOR TO DISCHARGE tetanus/dip 2016-03 No Notes: Dewayne beverly hth/pertuss 0-24 (Tdap ) l is (Tdap) 23:00: For [facility] adult/adol 00 Adolecent 5 units-2 and Adult units-15.5 use For IM mcg/0.5 mL Use. Same intramuscul as: Adacel ar (Tdap) suspension Lactated 2016-03 No 1,000 mL, Dewayne beverly Ringers 0-24 Rate: 100 l 1,000 mL 22:15: ml/hr, [facility] 00 Infuse over: 10 hr, Route: IV, Dosing Weight 77.273 kg, Total Volume: 1,000, Start date: 01/06/17 17:15:00 CDT, Duration: 30 day, Stop date: 02/05/17 17:14:00 MARKETING PERFORMANCE ANALYST oxytocin 30 2016-03 No 30 unit, Me moria units/NS 0-24 500 mL, l 500 ml 30 22:15: Rate: 42 Herm yasmany unit 00 ml/hr, Infuse over: 11.9 hr, Dosing Weight 77.273, kg, Route: IV, Total Volume: 500 mL, Start date: 01/06/17 17:15:00 CDT, Duration: 2 day, Stop date: 01/08/17 17:14:00 CDT, Replace Every: 11.9 hr Dermoplast 2016-03 No Notes: Memor ia 20% topical 0-24 (Same As: l spray 22:15: Dermoplast Kavin n 00 ) WASTE: Aerosol - Return to Pharmacy FOR EXTERNAL USE ONLY zolpidem 2016-03 No Notes: Memoria 0-24 (Same As: l 22:15: Ambien) Helder 00 methylergon 2016-03 No Notes: Dewayne beverly ovine 0-24 (Same l 22:15: as:Metherg Helder ine) ondansetron 2016-03 No Notes: Dewayne beverly 0-24 (Same as: l 22:15: Zofran) [facility] 00 MEDICATION WASTE Product Size: 4 mg Product Wasted: ___ mg docusate 2016-03 No Notes: Memoria 0-24 (Same as: l 22:15: Colace) [facility] 00 (Do Not Crush) lanolin 2016-03 No Notes: Memoria topical 0-24 (Same l 22:15: as:Lanolin [facility] 00 ) bisacodyl 2016-03 No Notes: Memori a 0-24 (Same As: l 22:15: Dulcolax, Helder 00 Correctol) (Do Not Crush) "Do Not Crush" Benadryl 2016-03 No Notes: Memoria 0-24 (Same as: l 17:49: Benadryl) Helder Benadryl 2016-03 No Notes: Memoria 0-24 (Same as: l 17:25: Benadryl) [facility] famotidine 2016-03 No Notes: Memor ia 0-24 (Same as: l 15:00: Pepcid) Helder 00 Can be dilute in 5-10cc NS IVP: Slow IV push over at least 2 minutes. methylergon 2016-03 No Notes: Dewayne beverly ovine 0-24 (Same l 15:00: as:Metherg ine) misoprostol 2016-03 No Notes: Dewayne beverly 0-24 (Same l 15:00: as:Cytotec ) Take with food carboprost 2016-03 No Notes: Memor ia 0-24 (Same As: l 15:00: Hemabate) Helder citric 2016-03 No Notes: Memoria acid-sodium 0-24 (Same As: l citrate 15:00: Bicitra, Kavin n 00 Cytra-2) Sodium citrate-ci tric acid (500-334 mg/5 mL): 1 mL contains sodium 1 mEq/mL and bicarbonat e 1 mEq/mL acetaminoph 2016-03 No Notes: Dewayne beverly en-hydrocod 0-24 (Same as: l one 325 14:34: [place] [facility] mg-5 mg 00 325/5) Do oral tablet not exceed 4gm/day of acetaminop hen. ondansetron 2016-03 No Notes: Dewayne beverly 0-24 (Same as: l 14:34: Zofran) MEDICATION WASTE Product Size: 4 mg Product Wasted: ___ mg lidocaine 2016-03 No Notes: Memori a 1% 0-24 (Same as: l 14:34: Xylocaine) terbutaline 2016-03 No Notes: Dewayne beverly 0-24 DO NOT l 14:34: USE IN CRANIOLOGIST AREA (Same As: Breth[place]) butorphanol 2016-03 No Notes: Dewayne beverly 0-24 (Same As: l 14:34: Stadol) MEDICATION WASTE Product Size: 2 mg Product Wasted: ___ mg ibuprofen 2016-03 No Notes: Memori a 0-24 (Same as: l 14:34: Motrin) "Do Not Crush" Take with food. lidocaine 2016-03 No Notes: Memori a 1% 0-24 (Same as: l injectable 14:34: Xylocaine) H ermann solution 00 oxytocin 30 2017-1 No 30 unit, Me moria units/NS 0-24 500 mL, l 500 ml 30 14:34: Rate: 42 Herm yasmany unit 00 ml/hr, Infuse over: 11.9 hr, Dosing Weight 77.273, kg, Route: IV, Total Volume: 500 mL, Start date: 01/06/17 9:34:00 CDT, Duration: 2 day, Stop date: 01/08/17 9:33:00 CDT, Replace Every: 11.9 hr Lactated 2016-03 No 1,000 mL, Dewayne beverly Ringers 0-24 1,000 l (Bolus) IV 14:34: ml/hr, Emilia nn 00 Infuse Over: 1 hr, Route: IV, 1,000, Drug form: INJ, ONCE, Dosing Weight 77.273 kg, Start date: 01/06/17 9:34:00 CDT, Stop date: 01/06/17 9:34:00 CDT, Bolus for regional anesthesia per unit protocol Lactated 2016-03 No 1,000 mL, Dewayne beverly Ringers 0-24 Rate: 125 l 1,000 mL 14:34: ml/hr, Helder 00 Infuse over: 8 hr, Route: IV, Dosing Weight 77.273 kg, Total Volume: 1,000, Start date: 01/06/17 9:34:00 CDT, Duration: 30 day, Stop date: 02/05/17 9:33:00 MARKETING PERFORMANCE ANALYST Vital Signs Vital Name Observation Time Observation Value Comments Source Temperature Oral (F) 2017-12-18 03:40:00 98.8 F [facility] Respitory Rate 2017-12-18 03:40:00 Memori al [facility] Systolic (mm Hg) 2017-12-18 03:40:00 Dewayne rial [facility] Diastolic (mm Hg) 2017-12-18 03:40:00 Mem orial [place] Temperature Oral (F) 2017-12-18 02:07:00 98.7 F [facility] Systolic (mm Hg) 2017-12-18 02:07:00 Dewayne rial [facility] Diastolic (mm Hg) 2017-12-18 02:07:00 Mem orial [place] Systolic (mm Hg) 2017-12-18 01:36:00 Dewayne rial [facility] Diastolic (mm Hg) 2017-12-18 01:36:00 Mem orial [facility] Weight 2017-12-18 01:01:00 [facility] BMI Calculated 2017-12-18 01:01:00 Memori al [facility] Heart Rate 2017-12-18 01:01:00 [facility] Height 2017-12-18 01:01:00 172.72 cm [facility] Temperature Oral (F) 2017-12-18 01:01:00 98.9 F [facility] Respitory Rate 2017-12-18 01:01:00 Memori al [place] Temperature Oral (F) 2017-01-08 13:00:00 98.0 F [facility] Systolic (mm Hg) 2017-01-08 13:00:00 Dewayne rial Helder Diastolic (mm Hg) 2017-01-08 13:00:00 Mem orial [place] Respitory Rate 2017-01-08 13:00:00 Memori al [place] Heart Rate 2017-01-08 13:00:00 [facility] Systolic (mm Hg) 2017-01-08 01:20:00 Dewayne rial Helder Diastolic (mm Hg) 2017-01-08 01:20:00 Mem orial [place] Temperature Oral (F) 2017-01-08 01:20:00 98.2 F [facility] Heart Rate 2017-01-08 01:20:00 [facility] Respitory Rate 2017-01-07 21:08:00 Memori al [facility] Temperature Oral (F) 2017-01-07 21:08:00 98.6 F [facility] Heart Rate 2017-01-07 21:08:00 [facility] Systolic (mm Hg) 2017-01-07 21:08:00 Dewayne rial [place] Diastolic (mm Hg) 2017-01-07 21:08:00 Mem orial [facility] Respitory Rate 2017-01-07 17:00:00 Memori al [place] BMI Calculated 2017-01-06 14:20:00 Memori al [facility] Weight 2017-01-06 14:20:00 [facility] Height 2017-01-06 14:20:00 172.72 cm [facility] Procedures This patient has no known procedures. Encounters Start End Encounter Admission Attending Care Care Encounter Source Date/Time Date/Time Type Type Clinicians Facility Department ID 2020-06-12 2020-06-12 [facility] [id number] 11:05:00 11:12:00 Nisa Sotelo [id number] [place] [id number] [place] [id number] 2020-06-12 2020-06-12 Orders Doctor KIM [id number] 00:00:00 00:00:00 Only Unassigned, SHYANN [id number] [facility] [id number] [id number] 2020-06-05 2020-06-05 Patient Edward [facility] [id number] 00:00:00 00:00:00 Outreach Miguel Angel [facility] [id number] [facility] [id number] [place] [id number] 2020-01-03 2020-01-03 Emergency Xvaier [facility] [id number] 10:20:00 11:05:00 Emily Jad Sotelo [id number] [place] [id number] [place] [id number] 2020-01-03 2020-01-03 Telephone Linnette Jain [id number] 00:00:00 00:00:00 SHYANN [id number] [place] [id number] 2019-08-12 2019-08-12 Nurse Visit, [facility] [id number] 10:14:36 10:29:36 Visit Christiano-Rmchp CRANIOLOGIST [id number] Nurse [facility] [id number] MATERNAL [id number] & CHILD [address] [facility] 2019-08-12 2019-08-12 Telephone Collins [facility] [id number] 00:00:00 00:00:00 Yola Jackson CRANIOLOGIST [id number] [facility] [id number] MATERNAL [id number] & CHILD [address] [facility] 2019-08-12 2019-08-12 Case Collins [facility] [id number] 00:00:00 00:00:00 Management Yola C CRANIOLOGIST [id number] [facility] [id number] MATERNAL [id number] & CHILD [facility] 2019-08-11 2019-08-11 [facility] [id number] 00:00:00 00:00:00 Yola C CRANIOLOGIST [id number] [facility] [id number] MATERNAL [id number] & CHILD [address] [facility] 2019-07-26 2019-07-26 Office [facility] [id number] 14:00:18 15:22:03 Visit Yola C CRANIOLOGIST [id number] [facility] [id number] MATERNAL [id number] & CHILD [facility] 2017-12-17 2017-12-17 Outpatient JESUS Pérez [facility] [id number] 19:59:00 22:53:00 Eric 2017-01-06 2017-01-08 Outpatient JESSIE Ryan [facility] [id number] 08:38:00 15:17:00 2016-08-25 2016-08-25 Emergency E [facility] [id number] 13:00:00 13:00:00 [facility] Results Test Description Test Time Test Comments Results Result Comments Source CBC W/AUTO DIFF 2018-09-30 20:53:00 Test Item Value Reference Range Interpretation Comme nts WHITE BLOOD CELL (test code = WBC) 8.7 x10 3/uL 3.2-11.5 N RED BLOOD CELL (test code = RBC) 3.80 x10(6)/m 3.70-5.10 N HEMOGLOBIN (test code = HGB) 11.8 g/dL 12.0-15.0 L HEMATOCRIT (test code = HCT) 34.7 % 35.7-44.8 L MEAN CELL VOLUME (test code = MCV) 91 fL 80-100 N MEAN CELL HGB (test code = MCH) 31.2 pg 26.2-33.8 N MEAN CELL HGB CONCENTRATION (test code = MCHC) 34.1 g/dL 30.0-34 .0 H RED CELL DISTRIBUTION WIDTH (test code = RDW) 14.6 % 11.3-14. 5 H PLATELET COUNT (test code = PLT) 194 x10 3/uL 130-408 N MEAN PLATELET VOLUME (test code = MPV) 7.9 fl 6.4-10.5 N NEUTROPHIL % (test code = NT%) 61.2 % 40.0-70.0 N LYMPHOCYTE % (test code = LY%) 22.9 % 20-40 N MONOCYTE % (test code = MO%) 15.5 % 1-10 H EOSINOPHIL % (test code = EO%) 0.1 % 1.0-5.0 L BASOPHIL % (test code = BA%) 0.3 % 0.0-1.0 N NEUTROPHIL # (test code = NT#) 5.3 x10 3/uL 1.6-7.2 N LYMPHOCYTE # (test code = LY#) 2.00 x10 3/uL 1.1-2.7 N MONOCYTE # (test code = MO#) 1.3 x10 3/uL 0.3-0.8 H EOSINOPHIL # (test code = EO#) 0.0 x10 3/uL 0.0-0.5 N BASOPHIL # (test code = BA#) 0.0 x10 3/uL 0.0-0.1 N BASIC METABOLIC [id number] 20:11:00 Test Item Value Reference Range Interpretation Comments SODIUM (test code 133 mmol/L 135-145 L = NA) POTASSIUM (test 3.1 mmol/L 3.6-5.0 L code = K) CHLORIDE (test 103 mmol/L 101-111 N code = CL) CARBON DIOXIDE 15 mmol/L 21-31 L (test code = CO2) GLUCOSE (test code 83 mg/dl 70-100 N = GLU) BLOOD UREA 5 mg/dl 6-20 L NITROGEN (test code = BUN) GLOMERULAR >=60 max >60 The estimated FILTRATION RATE estimate glomerular (test code = GFR) filtration rate is computed usingpatient ra ce, age (>18), sex, and serum creatinin e. If anyof the neede d data elements a re missing the Laboratory maci ot compute an estimation of t he glomerular filtration rate . CREATININE (test 0.70 mg/dL 0.44-1.03 N code = CREAT) CALCIUM (test code 9.5 mg/dL 8.5-10.5 N = CA) LIVER FUNCTION [id number] 20:11:00 Test Item Value Reference Range Interpretation Comments TOTAL PROTEIN (test code = PROT) 7.5 g/dL 6.7-8.2 N ALBUMIN (test code = ALB) 4.0 g/dL 3.2-5.5 N BILIRUBIN TOTAL (test code = BILT) 1.30 mg/dL 0.2-1.3 N BILIRUBIN DIRECT (test code = 0.2 mg/dL 0.00-0.20 N BILD) SGOT/AST (test code = AST) 25 U/L 10-42 N SGPT/ALT (test code = ALT) 14 U/L 10-60 N ALKALINE PHOSPHATASE (test code = 46 U/L 42-121 N ALKP) [id number] 20:11:00 Test Item Value Reference Range Interpretation Comments ALCOHOL (test code = 6 mg/dl Interpr etive Data:il: ALC) Ethanol Level To convert into le gal units, divide result b y 1,000 DRUGS OF ABUSE SCREEN [id number] 19:58:00 Test Item Value Reference Range Interpretation Comments UR COCAINE (test code NEGATIVE NEGATIVE This i s a toxicology = COCAU) qualitative scr eening test only. Ifconfirmatory testing is desired please request drug screenconf irmation. These results a re unconfirmed and should beused only for medical purposes. Cut-o ff concentration f or Cocaine is 300 ng/mLRec ommended screening cut-o ff concentrations by thebstance Ab use and Mental [facility]. UR CANABINOIDS (test POSITIVE NEGATIVE A This is a toxicology code = CANU) qualitative scr eening test only. Ifconfirmatory testing is desired please request drug screenconf irmation. These results a re unconfirmed and should beused only for medical purposes. Cut-o ff concentration f or THC is 50 ng/mLRecomme nded screening cut-o ff concentrations by theSubstance Ab use and Mental Health S ervices Administration. UR AMPHETAMINE (test POSITIVE NEGATIVE A The ing estion of natural code = AMPHU) herbal and bryce nt productscontain ing Ephedra/Ephedra -Metabolit es can produce in urineone or mor e substances capa ble of cross-reacting withAmphetamine /Methamphe tamine immunoas says. This testprovid es a preliminary res ult only. A more specificalterna tive chemical method must be used to obtain aconfirmed analytical resu lt. This is a toxicology qualitative scr eening test only. Ifconfirmatory testing is desired please request drug screenconf irmation. These results a re unconfirmed and should beused only for medical purposes. Cut-o ff concentration f or Amphetamines is 1000 ng/mLRecommende d screening cut-o ff concentrations by thebstance Ab use and Mental [facility]. UR BARBITURATE (test NEGATIVE NEGATIVE This is a toxicology code = BARBQLU) qualitative screening test only. Ifconfirmatory testing is desired please request drug screenconf irmation. These results a re unconfirmed and should beused only for medical purposes. Cut-o ff concentration f or Barbiturates is 200 ng/mLRecommende d screening cut-o ff concentrations by thebstance Ab use and Mental [facility] S ervices Administration. UR BENZODIAZEPINE NEGATIVE NEGATIVE This is a toxicology (test code = BENZU) qualitat macho screening test only. Ifconfirmatory testing is desired please request drug screenconf irmation. These results a re unconfirmed and should beused only for medical purposes. Cut-o ff concentration f or Benzodiazepines is 200 ng/mLRecommende d screening cut-o ff concentrations by thebstance Ab use and [facility] S ervices Administration. UR OPIATES QUAL (test NEGATIVE NEGATIVE This i s a toxicology code = OPIAQLU) qualitative screening test only. Ifconfirmatory testing is desired please request drug screenconf irmation. These results a re unconfirmed and should beused only for medical purposes. Cut-o ff concentration f or Opiates is 300 ng/mLRec ommended screening cut-o ff concentrations by thebstance Ab use and Mental [facility] S ervices Administration. UR PHENCYCLIDINE NEGATIVE NEGATIVE This is a t oxicology (PCP) (test code = qualitati ve screening PHENCU) test only. Ifconfirmatory testing is desired please request drug screenconf irmation. These results a re unconfirmed and should beused only for medical purposes. Cut-o ff concentration f or PCP is 25 ng/mLRecomme nded screening cut-o ff concentrations by [facility] Ab use and Mental Health [facility]. HCG SERUM [id number] 19:53:00 Test Item Value Reference Range Interpretation Comments HCG SERUM QUAL POSITIVE NEGATIVE This is a makayla litative (test code = HCGQL) screenin g test.The quantitative Bh cg may be helpful.Weakly positive results should be repeated in 48 hours. URINALYSIS [id number] 19:50:00 Test Item Value Reference Range Interpretation Comments UA COLOR (test code = COLU) YELLOW YELLOW UA APPEARANCE (test code = APPU) Cloudy CLEAR UA GLUCOSE DIPSTICK (test code = NEGATIVE NEGATIVE DGLUU) UA BILIRUBIN DIPSTICK (test code = NEGATIVE NEGATIVE BILU) UA KETONE DIPSTICK (test code = Trace NEGATIVE A KETU) UA SPECIFIC GRAVITY (test code = 1.008 1.001-1.030 SGU) UA BLOOD DIPSTICK (test code = LO) NEGATIVE NEGATIVE UA PH DIPSTICK (test code = VADIM) 7.0 5.0-9.0 UA PROTEIN DIPSTICK (test code = NEGATIVE NEGATIVE PROU) UA UROBILINOGEN DIPSTICK (test code NEGATIVE <=1.0 = URO) UA NITRITE DIPSTICK (test code = NEGATIVE NEGATIVE HOLDEN) UA ASCORBIC ACID DIPSTICK (test NEGATIVE code = AAU) UA LEUKOCYTE ESTERASE DIPSTICK 1+ NEGATIVE A (test code = LEUU) UA WBC (test code = WBCU) 0-5 /HPF 0-5 UA RBC (test code = RBCU) 0-5 /HPF 0-5 UA EPITHELIAL CELLS (test code = MANY /LPF NONE-FEW EPIU) UA BACTERIA (test code = BACU) 1+ /HPF NONE SEEN A UA MUCUS (test code = MUCU) 1+ /LPF NONE SEEN MOLECULAR [id number] 15:53:00Negative *NA*(01/06/17 10:53 AM)[facility] [id number] 15:53:00Urine *NA*(01/06/17 10:53 AM) [facility] [id number] 15:53:00Negative *NA*(01/06/17 10:53 AM)[facility] [id number] 15:53:00Negative (01/06/17 10:53 AM)[facility] [id number] 15:53:00Trace *ABN*(01/06/17 10:53 AM)[facility] [id number] 15:53:00Negative *NA*(01/06/17 10:53 AM)[facility] [id number] 15:53:00 Negative (01/06/17 10:53 AM)[facility] [id number] 15:53:00 Negative *NA*(01/06/17 10:53 AM)[facility] [id number] 15:53:00Negative (01/06/17 10:53 AM)[facility] [id number] 15:53:00 Test Item Value Reference Range Interpretation Comments UA Spec Grav (test code = UA Spec 1.015 1 Grav) [facility] [id number] 15:53:00 Test Item Value Reference Range Interpretation Comments UA pH (test code = UA pH) 7.0 1 5.0-8.0 [facility] [id number] 15:53:00Clear (01/06/17 10:53 AM) [facility] [id number] 15:53:00Yellow *NA*(01/06/17 10:53 AM) [facility] [id number] 15:53:00Performed (01/06/17 10:53 AM) [facility] [id number] 15:53:00Negative (01/06/17 10:53 AM) [facility] [id number] 15:53:001.0[facility] 2017-01-06 15:53:06107.00[facility] GUJB5394-14-25 15:53:000.2 [facility] EHGO9414-42-48 15:53:0019.2[facility]annCHEM PANEL 2017-01-06 15:50:0020[facility]annCHEM QGJPV0866-50-11 15:50:61648Gxqabnwv HermannCHEM BEYED7989-13-09 15:50:003.5[facility]annCHEM PEEMQ6819-75-61 15:50:0016[facility] HermannCHEM JEODY7680-47-48 15:50:002.9[facility]annCHEM SARCA3789-52-14 15:50:0014[facility] HermannCHEM LNZNL2744-25-69 15:50:00654 [facility]annCHE[facility] WGUWT2645-51-07 15:50:000.6[facility]annDRUG SCREEN 2017-01-06 15:50:00Negative *NA*(01/06/17 10:50 AM)[facility]ann[facility] SCREEN 2017-01-06 15:50:00Negative *NA*(01/06/17 10:50 AM)[facility] SCREEN 2017-01-06 15:50:00See Note (01/06/17 10:50 AM)[facility] SCREEN 2017-01-06 15:50:00Negative *NA*(01/06/17 10:50 AM)[facility] SCREEN 2017-01-06 15:50:00Negative *NA*(01/06/17 10:50 AM)[facility] SCREEN 2017-01-06 15:50:00Positive *ABN*(01/06/17 10:50 AM)[facility] SCREEN 2017-01-06 15:50:00Negative *NA*(01/06/17 10:50 AM)[facility] SCREEN 2017-01-06 15:50:00Negative *NA*(01/06/17 10:50 AM)[facility]annHEMATOLOGY 2017-01-06 15:50:000.5[facility] QprjgddROXDVQWQSL6104-07-27 15:50:000.3[facility] MlzyeodXBYIBSWCQZ3723-72-03 15:50:000.7[facility] HimcltaZZZVXPNHFQ4826-31-66 15:50:007.8[facility] DykputrZWHAILRLCR3456-59-53 15:50:001.4[facility] YHMUWGFUQB9862-31-25 15:50:007.2[facility] ZupzoqlCFMJJMQNWQ0826-75-78 15:50:00 14.0[facility] SdpxgzsKHLDFOMFBK1422-54-24 15:50:0078.0[facility]annHEMATOLOGY 2017-01-06 15:50:009.0[facility] CqsqewdSTIPVQUCMA5517-04-54 15:50:77104Njnstotw VokdvgnHYSOHCEFOF2199-59-76 15:50:0013.3[facility] GosygvgVSUPBWYQGK1927-11-32 15:50:00 Test Item Value Reference Range Interpretation Comments MCH (test code = MCH) 31.4 pg 27.0-31.0 [facility] NchxhltAVIGKPSURB3010-52-12 15:50:0034.0[facility]annHEMATOLOGY 2017-01-06 15:50:0092.2[facility] UniwgxzPUUVABPOYA9912-16-48 15:50:0036.4[facility] RjaimriERLQCJIKYR8915-13-16 15:50:003.95[facility] ZywkrksQOJHBAUNLP5879-71-35 15:50:0012.4[facility] EyxcseeEUYZCCUMCX3369-68-05 15:50:0010.0[facility] QCKRVWTMAU1288-98-94 15:50:00Negative *NA*(01/06/17 10:50 AM)[facility] WPEHJOLEOW3906-50-52 15:50:00Negative *NA*(01/06/17 10:50 AM)[facility] VVONNLPBHR6886-81-93 15:50:00Non Reactive *NA*(01/06/17 10:50 AM)[facility] BmlcessAJEISQDXUZ9648-99-37 15:50:0066.9[facility] VemdgvcYOEREOOTNP8290-36-63 15:50:00Negative *NA*(01/06/17 10:50 AM)[facility]annBLOOD BANK RESULTS 2017-01-06 15:50:00See Note 1(01/06/17 10:50 AM)[facility] BANK MDMBZFS0730-19-57 15:50:00Negative (01/06/17 10:50 AM)[facility]annCHEM PANEL 2017-01-06 15:50:0011[facility] HermannCHEM QUIKV0896-90-25 15:50:004.2[facility]annCHEM FPELE1682-40-67 15:50:0013.5[facility]annCHEM DPYTX5305-06-94 15:50:000.7[facility] HermannCHEM YSRJW3142-88-47 15:50:93464Lcrbopde HermannCHEM SZVBR0293-83-44 15:50:04521Zhvglhcf HermannCHEM WBASX1253-84-08 15:50:006 [facility]annCHEM TNIWF8960-50-57 15:50:0087[facility] HermannCHEM PANEL 2017-01-06 15:50:000.57[facility] HermannCHEM ORICD4974-06-25 15:50:008.8[facility] HermannCHEM QETWY6801-26-51 15:50:007.1[facility]
[2020-06-18 00:58] LABS: Urine Blood 2+ (Negative); Urine Glucose Negative (Negative); Urine Protein 1+ (Negative); Urine Specific Gravity 1.025 (1.005-1.030)
--- NOTE | 2020-06-18 01:03 | ER ---
Nurse's Notes [facility] Name: Tenzin Snider Age: 24 yrs Sex: Female : 1995 Arrival Date: 06/18/2020 Time: 00:34 Bed 6 Private MD: Diagnosis: Dyspnea, unspecified Presentation: 06/18 00:35 Chief complaint: EMS states: We were called for a pt having difficulty breathing. She jb4 reports having a history of asthma and reports smoking a CBD vape pen when she feels like she cannot breathe. Coronavirus screen: Client denies travel out of the [place] in the last 14 days. At this time, the client does not indicate any symptoms associated with coronavirus-19. Ebola Screen: No symptoms or risks identified at this time. Initial Sepsis Screen: Does the patient meet any 2 criteria? No. Patient's initial sepsis screen is negative. Does the patient have a suspected source of infection? No. Patient's initial sepsis screen is negative. Risk Assessment: Do you want to hurt yourself or someone else? Patient reports no desire to harm self or others. Onset of symptoms was June 18, 2020. Transition of care: patient was not received from another setting of care. 00:35 Method Of Arrival: EMS: [facility] jb4 00:35 Acuity: CORI 3 jb4 Historical: - Allergies: 00:44 No Known Allergies; jb4 - Home Meds: 00:44 Abilify oral oral [Active]; sertraline oral oral [Active]; jb4 - PMHx: 00:44 Bipolar disorder; Depression; Schizophrenia; Asthma; jb4 - PSHx: 00:44 None; jb4 - Immunization history:: Adult Immunizations unknown. - Social history:: Smoking status: Reported history of juuling and/or vaping. Patient uses alcohol, occasionally. Patient/guardian denies using street drugs. Screenin:44 Abuse screen: Denies threats or abuse. Nutritional screening: No deficits noted. jb4 Tuberculosis screening: No symptoms or risk factors identified. Fall Risk None identified. Assessment: 00:44 General: Appears in no apparent distress. uncomfortable, Behavior is calm, cooperative, jb4 appropriate for age. Pain: Denies pain. Neuro: Level of Consciousness is awake, alert, obeys commands, Oriented to person, place, time, situation. Cardiovascular: Patient's skin is warm and dry. Respiratory: Reports shortness of breath at rest Airway is patent Respiratory effort is even, unlabored, Respiratory pattern is regular, symmetrical, Breath sounds are clear bilaterally. GI: No signs and/or symptoms were reported involving the gastrointestinal system. : No signs and/or symptoms were reported regarding the genitourinary system. EENT: No signs and/or symptoms were reported regarding the EENT system. Derm: Skin is intact, Skin is pink, warm \\T\\ dry. Musculoskeletal: Circulation, motion, and sensation intact. Range of motion: intact in all extremities. 00:57 Reassessment: Patient reports, " I just realized what time it was and I want to find a lp1 phone and call a ride so I can go home"; Patient reports feeling better, ambulating independently in [place]; Denies any difficulty breathing, speaking in full sentences. Vital Signs: 00:35 BP 128 / 76; Pulse 88; Resp 18; Temp 98.4(O); Pulse Ox 98% on R/A; Weight 97.52 kg (R); jb4 Height 5 ft. 8 in. (172.72 cm) (R); Pain 0/10; 00:35 Body Mass Index 32.69 (97.52 kg, 172.72 cm) jb4 ED Course: 00:34 Patient arrived in ED. jb4 00:36 Luis Nunez MD is Attending Physician. tw4 00:42 Triage completed. jb4 00:44 Arm band placed on right wrist. jb4 00:44 Patient has correct armband on for positive identification. Bed in low position. Call jb4 light in reach. Side rails up X 1. Pulse ox on. NIBP on. 00:58 Eben Mullen, RN is Primary Nurse. jb4 01:06 XRAY Chest (1 view) In Process Unspecified. EDMS Administered Medications: No medications were administered Outcome: 01:05 AMA AMA form signed lp1 01:05 Condition: stable 01:05 Instructed on returning if symptoms persist or worsen, demonstrates understanding 01:05 Patient left the ED. lp1 Signatures: Dispatcher [employer] EDMS Renetta Cano RN RN lp1 Eben Mullen RN RN jb4 Ellerslie, Luis, MD MD tw4
--- NOTE | 2020-06-18 01:03 | EDPHYS ---
Physician Documentation [facility] Name: Tenzin Snider Age: 24 yrs Sex: Female : 1995 Arrival Date: 06/18/2020 Time: 00:34 Bed 6 Private MD: ED Physician Luis Nunez HPI: 06/18 02:24 This 24 yrs old Black Female presents to ER via EMS with complaints of SOB. tw4 02:24 The patient has shortness of breath AFTER SMOKING VAPE PEN WITH CBD. Onset: The tw4 symptoms/episode began/occurred just prior to arrival. Duration: The symptoms BRIEF. The patient's shortness of breath has no apparent modifying factors. Associated signs and symptoms: Pertinent positives: non-productive cough, Pertinent negatives: chest pain, diaphoresis, dizziness, fever, hemoptysis, loss of consciousness, nausea. Severity of symptoms: At their worst the symptoms were mild in the emergency department the symptoms have resolved. The patient has not experienced similar symptoms in the past. Historical: - Allergies: 00:44 No Known Allergies; jb4 - Home Meds: 00:44 Abilify oral oral [Active]; sertraline oral oral [Active]; jb4 - PMHx: 00:44 Bipolar disorder; Depression; Schizophrenia; Asthma; jb4 - PSHx: 00:44 None; jb4 - Immunization history:: Adult Immunizations unknown. - Social history:: Smoking status: Reported history of juuling and/or vaping. Patient uses alcohol, occasionally. Patient/guardian denies using street drugs. ROS: 02:24 Constitutional: Negative for fever, chills, and weight loss, Eyes: Negative for injury, tw4 pain, redness, and discharge, Cardiovascular: Negative for chest pain, palpitations, and edema, Abdomen/GI: Negative for abdominal pain, nausea, vomiting, diarrhea, and constipation, Back: Negative for injury and pain, MS/Extremity: Negative for injury and deformity, Skin: Negative for injury, rash, and discoloration, Neuro: Negative for headache, weakness, numbness, tingling, and seizure. 02:24 Respiratory: Positive for cough, shortness of breath, Negative for dyspnea on exertion, hemoptysis, orthopnea, pleurisy. Exam: 02:24 Constitutional: This is a well developed, well nourished patient who is awake, alert, tw4 and in no acute distress. Head/Face: Normocephalic, atraumatic. Chest/axilla: Normal chest wall appearance and motion. Nontender with no deformity. No lesions are appreciated. Cardiovascular: Regular rate and rhythm with a normal S1 and S2. No gallops, murmurs, or rubs. Normal PMI, no JVD. No pulse deficits. Respiratory: Lungs have equal breath sounds bilaterally, clear to auscultation and percussion. No rales, rhonchi or wheezes noted. No increased work of breathing, no retractions or nasal flaring. Abdomen/GI: Soft, non-tender, with normal bowel sounds. No distension or tympany. No guarding or rebound. No evidence of tenderness throughout. Back: No spinal tenderness. No costovertebral tenderness. Full range of motion. Skin: Warm, dry with normal turgor. Normal color with no rashes, no lesions, and no evidence of cellulitis. MS/ Extremity: Pulses equal, no cyanosis. Neurovascular intact. Full, normal range of motion. Neuro: Awake and alert, GCS 15, oriented to person, place, time, and situation. Cranial nerves II-XII grossly intact. Motor strength 5/5 in all extremities. Sensory grossly intact. Cerebellar exam normal. Normal gait. Vital Signs: 00:35 BP 128 / 76; Pulse 88; Resp 18; Temp 98.4(O); Pulse Ox 98% on R/A; Weight 97.52 kg (R); jb4 Height 5 ft. 8 in. (172.72 cm) (R); Pain 0/10; 00:35 Body Mass Index 32.69 (97.52 kg, 172.72 cm) jb4 MDM: 00:37 Patient medically screened. tw4 02:26 Data reviewed: vital signs, nurses notes. Data reviewed: EMS record. Data interpreted: tw4 Pulse oximetry: Interpretation: normal. Refusal of service: The patient/guardian displays adequate decision making capability and despite a detailed discussion of alternatives, benefits, risks, and consequences refuses: all lab tests, all X-rays. 06/18 00:46 Order name: UDS [facility] 06/18 00:46 Order name: Basic Metabolic Panel tw4 06/18 00:46 Order name: CBC with Diff 06/18 00:46 Order name: LFT's tw 06/18 00:46 Order name: Magnesium tw 06/18 00:46 Order name: NT PRO-BNP tw 06/18 00:47 Order name: Urine Drug Screen EDTX 06/18 00:46 Order name: XRAY Chest (1 view) [facility] 06/18 00:46 Order name: Cardiac monitoring; Complete Time: 01:02 [facility] 06/18 00:46 Order name: O2 Per Protocol; Complete Time: 01:02 [facility] 06/18 00:46 Order name: O2 Sat Monitoring; Complete Time: 01:02 [facility] 06/18 00:58 Order name: Urine Dipstick-Ancillary EDTX 06/18 00:59 Order name: Urine --Ancillary (enter results) tt3 Administered Medications: No medications were administered Disposition: 06/18/20 01:02 Patient has left against medical advice. Impression: Dyspnea, unspecified. - Patients states they are going to Home. - Condition is Stable. - Discharge Instructions: Shortness of Breath. Follow up: Private Physician; When: Upon discharge from the Emergency Department; Reason: Recheck today's complaints, Continuance of care, Re-evaluation by your physician. - Problem is new. - Symptoms have improved. Signatures: Dispatcher [facility]landsRenetta Romero, RN RN lp1 Eben Mullen RN RN jb4 Luis Nunez MD MD tw4 Corrections: (The following items were deleted from the chart) 01:02 00:46 EKG - Nurse/Tech [place]. [place] [address] 01: 00:46 IV Saline Lock ordered. [place] [address] 01: 00:46 Labs collected and sent ordered. [place] [address] : 00:47 PROTIME (+INR)+COAG.LAB.BRZ ordered. EDTX EDTX : 00:47 Basic Metabolic Panel ordered. [facility] : 00:47 CBC with Automated Diff ordered. EDTX EDTX : 00:47 Liver (Hepatic) Function ordered. EDTX EDTX : 00:47 Magnesium ordered. EDTX EDTX : 00:47 NT PRO-BNP ordered. EDTX EDTX : 00:47 TROPONIN (EMERG DEPT USE ONLY)+C.LAB.BRZ ordered. EDTX EDMS 01:05 01:02 06/18/2020 01:02 Patients has left against medical advice. Impression: Dyspnea, lp1 unspecified. Patient states they are going to Home. Condition is Stable. Follow up: Private Physician; When: Upon discharge from the Emergency Department; Reason: Recheck today's complaints, Continuance of care, Re-evaluation by your physician. Problem is new. Symptoms have improved. tw4
[2020-06-18 01:19] LABS: Barbiturates NEGATIVE (NEGATIVE); Benzodiazepines NEGATIVE (NEGATIVE); Cocaine NEGATIVE (NEGATIVE); METHAMPHETAM NEGATIVE (NEGATIVE); Methadone NEGATIVE (NEGATIVE); Opiates NEGATIVE (NEGATIVE); Phencyclidine NEGATIVE (NEGATIVE); THC Cannibis POSITIVE (NEGATIVE)
[2020-06-18 02:19] LABS: Urine Specific Gravity/Preg 1.025 (1.005-1.030)
[2020-06-18 02:30] VITALS: BP 128/76; TEMP 98.4; O2SAT 98
--- NOTE | 2020-06-18 08:24 | RAD REPORT ---
EXAM DESCRIPTION: RAD - Chest Single View - 06/18/2020 1:06 am CLINICAL HISTORY: Cough;SOB COMPARISON: None TECHNIQUE: AP portable chest image was obtained 06/18/2020 1:06 am . FINDINGS: Lungs are clear. Heart and vasculature are normal. No measurable pleural effusion and no p neumothorax. No acute bony abnormality seen. No acute aortic findings suspected. IMPRESSION: No acute cardiopulmonary process.
== END 2020-06-18 01:05 | disposition left against medical advice (07) ==
LOC: ER 00:29
DX: R06.02 Shortness of breath (principal); F17.290 Nicotine dependence, other tobacco product, uncomplicated; F31.9 Bipolar disorder, unspecified; F20.9 Schizophrenia, unspecified; J45.909 Unspecified asthma, uncomplicated
CPT/HCPCS: 71045; 80307; 81003; 81025; 99283

== ENCOUNTER 2020-06-29 08:23 | Emergency (ER) | payer OTHER ==
--- OUTSIDE RECORDS SUMMARY | 2020-06-29 08:26 | XMS REPORT | Continuity of Care Document ---
:1995 Author Organization [facility] t Address [address] [place] [address] Care Team Providers Name Role Phone UNKNOWN Primary Care Physician Unavailable Silas RICKETTS Attending Clinician Doctor Unassigned, Name Attending Clinician Unavailable Tomasz Leon DO Attending Clinician Jad Park DO Attending Clinician Susy BETANCOURT M Attending Clinician Unavailable Visit, Nurse Attending Clinician Unavailable Renetta Hwang Attending Clinician Elisa Attending Clinician [place] Attending Clinician [place] Admitting Clinician Problems Condition Condition Condition Status Onset Resolution Last Treating Co mments Source Name Details Category Date Date Treatment Clinician Date 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 Social History Social Habit Start Date Stop Date Quantity Comments Source Sex Ass[birth year] At [birth year] Jerson Baird ethodist 00:00:00 00:00:00 Medications This patient has no known medications. Procedures This patient has no known procedures. Plan of Care Planned Activity Planned Date Details Comments Source Future Scheduled 2020-10-14 INFLUENZA VACCINE [place] [facility] 00:00:00 [code = INFLUENZA VACCINE] Future Scheduled 2019-11-02 CHLAMYDIA SCREENING [place] [facility] 00:00:00 [code = CHLAMYDIA SCREENING] Future Scheduled 2016-09-06 Screening for Jerson Giles [facility] Test 00:00:00 malignant neoplasm of cervix (procedure) [code = 975244740] Future Scheduled 2013-09-06 Hepatitis C [facility] Test 00:00:00 screening (procedure) [code = 300383896] Future Scheduled 2011 COVID-19 VACCINE (1) Mirna ramirez [facility] 00:00:00 [code = COVID-19 VACCINE (1)] Encounters Start End Encounter Admission Attending Care Care Encounter Source Date/Time Date/Time Type Type Clinicians Facility Department ID 2020-06-12 2020-06-12 [facility] [id number] 11:05:00 11:12:00 Nisa Sotelo [id number] [place] [id number] [place] [id number] 2020-06-12 2020-06-12 Orders Doctor KIM [id number] 00:00:00 00:00:00 Only Unassigned, SHYANN [id number] [facility] Leon [facility] [id number] [id number] 2020-06-05 2020-06-05 Patient Edward [facility] [id number] 00:00:00 00:00:00 Outreach Miguel Angel [facility] [id number] [facility] 4.2.7.2.686 [place] [id number] 2020-01-03 2020-01-03 Emergency [facility] [id number] 10:20:00 11:05:00 Emily Sotelo [id number] [place] [id number] [place] [id number] 2020-01-03 2020-01-03 Telephone Linnette Jain [id number] 00:00:00 00:00:00 SHYANN [id number] [place] [id number] [id number] 2019-08-12 2019-08-12 Nurse Visit, [facility] [id number] 10:14:36 10:29:[address] [facility] [employer]LL [employer]ACHINE TENDER [id number] Nurse [employer] [id number] MATERNAL [id number] & CHILD 107 [facility] 2019-08-12 2019-08-[address] [facility], [facility] [id number] 00:00:00 00:00:00 Yola C [employer]UILL MACHINE TENDER [id number] [employer] [id number] MATERNAL [id number] & CHILD 107 [facility] 2019-08-12 2019-08-12 Case [facility] [id number] 00:00:00 00:00:00 Management Yola C QUILL MACHINE TENDER [id number] [facility] [id number] MATERNAL [id number] & CHILD 107 [facility] 2019-08-11 2019-08-11 Telephone [facility] [id number] 00:00:00 00:00:00 Yola C QUILL MACHINE TENDER [id number] REGIONAL [id number] MATERNAL [id number] & CHILD 107 [facility] 2019-07-26 2019-07-26 Office [facility] [id number] 14:00:18 15:22:03 Visit Yola C QUILL MACHINE TENDER [id number] REGIONAL [id number] MATERNAL [id number] & CHILD 107 [facility] 2017-12-17 2017-12-17 Outpatient JESUS Pérez [id number] 19:59:00 22:53:00 Eric 2017-01-06 2017-01-[address] [facility] [id number] 08:38:00 15:17:00 Leonel 00 2016-08-25 2016-08-25 Emergency E [facility] [id number] 13:00:00 13:00:00 [facility] Results Test Description Test Time Test Comments [...] 0.0 x10 3/uL 0.0-0.1 N BASIC METABOLIC [id number] 20:11:00 Test Item Value Reference Range Interpretation [...] mg/dL 8.5-10.5 N = CA) LIVER FUNCTION [id number] 20:11:00 Test Item Value Reference Range Interpretation [...] code = 46 U/L 42-121 N ALKP) [id number] 20:11:00 Test Item Value Reference Range Interpretation Comments ALCOHOL (test code = 6 mg/dl Interpr etive Data:il: ALC) Ethanol Level To convert into le gal units, divide result b y 1,000 DRUGS OF ABUSE SCREEN [id number] 19:58:00 Test Item Value Reference Range Interpretation Comments UR COCAINE (test code NEGATIVE NEGATIVE This i s a toxicology = COCAU) qualitative scr eening test only. Ifconfirmatory testing is desired please request drug screenconf irmation. These results a re unconfirmed and should beused only for medical purposes. Cut-o ff concentration f or Cocaine is 300 ng/mLRec ommended screening cut-o ff concentrations by [facility] use and Mental [facility]. UR CANABINOIDS (test POSITIVE NEGATIVE A This is a toxicology code = CANU) qualitative scr eening test only. Ifconfirmatory testing is desired please request drug screenconf irmation. These results a re unconfirmed and should beused only for medical purposes. Cut-o ff concentration f or THC is 50 ng/mLRecomme nded screening cut-o ff concentrations by [facility] Ab use and [facility] Administration. UR AMPHETAMINE (test POSITIVE NEGATIVE A [...] concentrations by thebstance Ab use and Mental [facility] Administration. UR BARBITURATE (test NEGATIVE NEGATIVE This is a toxicology code = BARBQLU) qualitative screening test only. Ifconfirmatory testing is desired please request drug screenconf irmation. These results a re unconfirmed and should beused only for medical purposes. Cut-o ff concentration f or Barbiturates is 200 ng/mLRecommende d screening cut-o ff concentrations by [facility] Ab use and Mental [facility] S ervices Administration. UR BENZODIAZEPINE NEGATIVE NEGATIVE This is a toxicology (test code = BENZU) qualitat macho screening test only. Ifconfirmatory testing is desired please request drug screenconf irmation. These results a re unconfirmed and should beused only for medical purposes. Cut-o ff concentration f or Benzodiazepines is 200 ng/mLRecommende d screening cut-o ff concentrations [facility]. UR OPIATES QUAL (test NEGATIVE NEGATIVE This i s a toxicology code = OPIAQLU) qualitative screening test only. Ifconfirmatory testing is desired please request drug screenconf irmation. These results a re unconfirmed and should beused only for medical purposes. Cut-o ff concentration f or Opiates is 300 ng/mLRec ommended screening cut-o ff concentrations by [facility] Ab use and [facility] Administration. UR PHENCYCLIDINE NEGATIVE NEGATIVE This is a t oxicology (PCP) (test code = qualitati ve screening PHENCU) test only. Ifconfirmatory testing is desired please request drug screenconf irmation. These results a re unconfirmed and should beused only for medical purposes. Cut-o ff concentration f or PCP is 25 ng/mLRecomme nded screening cut-o ff concentrations by [facility] Ab use and [facility] Administration. HCG SERUM [id number] 19:53:00 Test Item Value Reference Range Interpretation Comments HCG SERUM QUAL POSITIVE NEGATIVE This is a makayla litative (test code = HCGQL) screenin g test.The quantitative Bh cg may be helpful.Weakly positive results should be repeated in 48 hours. URINALYSIS [id number] 19:50:00 Test Item Value Reference Range Interpretation [...]
--- NOTE | 2020-06-29 09:12 | EDPHYS ---
Physician Documentation [facility] Name: Tenzin Snider Age: 24 yrs Sex: Female : 1995 Arrival Date: 06/29/2020 Time: 08:24 Bed 15 Private MD: ED Physician Luis Nunez HPI: 06/29 17:27 This 24 yrs old Black Female presents to ER via Ambulatory with complaints of covid tw4 exposure. 17:27 exposed to covid. Onset: The symptoms/episode began/occurred today. Severity of tw4 symptoms: At their worst the symptoms were mild in the emergency department the symptoms are unchanged. The patient has not experienced similar symptoms in the past. fay has covid. Pt states that she has no symptoms. [employer]: 09:10 LMP 06/14/2020 bw Historical: - Allergies: 08:32 No Known Allergies; iw - Home Meds: 08:32 Abilify Oral [Active]; sertraline Oral [Active]; iw - PMHx: 08:32 Asthma; Bipolar disorder; Depression; Schizophrenia; iw - PSHx: 08:32 None; iw - Immunization history:: Adult Immunizations not up to date. - Social history:: Smoking status: Patient reports the use of cigarette tobacco products, smokes one-half pack cigarettes per day. ROS: 17:27 Constitutional: Negative for fever, chills, and weight loss, Eyes: Negative for injury, tw4 pain, redness, and discharge, Cardiovascular: Negative for chest pain, palpitations, and edema, Respiratory: Negative for shortness of breath, cough, wheezing, and pleuritic chest pain, Abdomen/GI: Negative for abdominal pain, nausea, vomiting, diarrhea, and constipation, Back: Negative for injury and pain, : Negative for injury, bleeding, discharge, and swelling, MS/Extremity: Negative for injury and deformity, Skin: Negative for injury, rash, and discoloration, Neuro: Negative for headache, weakness, numbness, tingling, and seizure, Psych: Negative for depression, anxiety, suicide ideation, homicidal ideation, and hallucinations. Exam: 17:27 Constitutional: This is a well developed, well nourished patient who is awake, alert, tw4 and in no acute distress. Head/Face: Normocephalic, atraumatic. Chest/axilla: Normal chest wall appearance and motion. Nontender with no deformity. No lesions are appreciated. Cardiovascular: Regular rate and rhythm with a normal S1 and S2. No gallops, murmurs, or rubs. Normal PMI, no JVD. No pulse deficits. Respiratory: Lungs have equal breath sounds bilaterally, clear to auscultation and percussion. No rales, rhonchi or wheezes noted. No increased work of breathing, no retractions or nasal flaring. Abdomen/GI: Soft, non-tender, with normal bowel sounds. No distension or tympany. No guarding or rebound. No evidence of tenderness throughout. Back: No spinal tenderness. No costovertebral tenderness. Full range of motion. Skin: Warm, dry with normal turgor. Normal color with no rashes, no lesions, and no evidence of cellulitis. MS/ Extremity: Pulses equal, no cyanosis. Neurovascular intact. Full, normal range of motion. Neuro: Awake and alert, GCS 15, oriented to person, place, time, and situation. Cranial nerves II-XII grossly intact. Motor strength 5/5 in all extremities. Sensory grossly intact. Cerebellar exam normal. Normal gait. Vital Signs: 08:30 BP 125 / 69; Pulse 78; Resp 16; Temp 97.9; Pulse Ox 100% on R/A; Weight 97.52 kg; iw Height 5 ft. 8 in. (172.72 cm); 08:30 Body Mass Index 32.69 (97.52 kg, 172.72 cm) iw MDM: 08:35 Patient medically screened. tw4 09:09 Data reviewed: vital signs, nurses notes. Counseling: I had a detailed discussion with tw4 the patient and/or guardian regarding: the historical points, exam findings, and any diagnostic results supporting the discharge/admit diagnosis. Medical screen evaluation completed. EMTALA emergency medical condition absent. Special discussion: I discussed with the patient/guardian in detail that at this point there is no indication for admission to the hospital. It is understood, however, that if the symptoms persist or worsen the patient needs to return immediately for re-evaluation. 17:27 Data interpreted: Pulse oximetry: Interpretation: normal. tw4 Administered Medications: No medications were administered Disposition: 06/29/20 09:11 Discharged to Home. Impression: COVID exposure. - Condition is Stable. - Discharge Instructions: COVID-19. - Medication Reconciliation Form, Thank You Letter, Antibiotic Education, Prescription Opioid Use form. - Follow up: Private Physician; When: Upon discharge from the Emergency Department; Reason: Recheck today's complaints, Continuance of care, Re-evaluation by your physician. - Problem is new. - Symptoms are unchanged. Signatures: Chichi Park RN RN Luis Salcedo MD MD tw4 Charu Rodriguez Corrections: (The following items were deleted from the chart) 09:12 09:11 06/29/2020 09:11 Discharged to Home. Impression: COVID exposure. Condition is eb Stable. Forms are Medication Reconciliation Form, Thank You Letter, Antibiotic Education, Prescription Opioid Use. Follow up: Private Physician; When: Upon discharge from the Emergency Department; Reason: Recheck today's complaints, Continuance of care, Re-evaluation by your physician. Problem is new. Symptoms are unchanged. tw4
--- NOTE | 2020-06-29 09:12 | ER ---
Nurse's Notes [facility] Name: Tenzin Snider Age: 24 yrs Sex: Female : 1995 Arrival Date: 06/29/2020 Time: 08:24 Bed 15 Private MD: Diagnosis: COVID exposure Presentation: 06/29 08:30 Chief complaint: Patient states: her fiance told her he tested positive for COVID, pt iw denies any COVID symptoms. Coronavirus screen: At this time, the client does not indicate any symptoms associated with coronavirus-19. Ebola Screen: Patient negative for fever greater than or equal to 101.5 degrees Fahrenheit, and additional compatible Ebola Virus Disease symptoms Patient denies exposure to infectious person. Patient denies travel to an Ebola-affected area in the 21 days before illness onset. No symptoms or risks identified at this time. Initial Sepsis Screen: Does the patient meet any 2 criteria? No. Patient's initial sepsis screen is negative. Does the patient have a suspected source of infection? No. Patient's initial sepsis screen is negative. Risk Assessment: Do you want to hurt yourself or someone else? Patient reports no desire to harm self or others. Onset of symptoms was June 29, 2020. 08:30 Method Of Arrival: Ambulatory iw 08:30 Acuity: CORI 4 iw Triage Assessment: 09:10 General: Appears in no apparent distress. comfortable, Behavior is calm, cooperative, bw appropriate for age. [employer]: 09:10 LMP 06/14/2020 bw Historical: - Allergies: 08:32 No Known Allergies; iw - Home Meds: 08:32 Abilify Oral [Active]; sertraline Oral [Active]; iw - PMHx: 08:32 Asthma; Bipolar disorder; Depression; Schizophrenia; iw - PSHx: 08:32 None; iw - Immunization history:: Adult Immunizations not up to date. - Social history:: Smoking status: Patient reports the use of cigarette tobacco products, smokes one-half pack cigarettes per day. Screenin:38 Abuse screen: Denies threats or abuse. Nutritional screening: No deficits noted. bw Tuberculosis screening: No symptoms or risk factors identified. Fall Risk None identified. Assessment: 08:38 Pain: Denies pain. Neuro: No deficits noted. Cardiovascular: No deficits noted. bw Respiratory: No deficits noted. GI: No deficits noted. : No deficits noted. EENT: No deficits noted. Vital Signs: 08:30 BP 125 / 69; Pulse 78; Resp 16; Temp 97.9; Pulse Ox 100% on R/A; Weight 97.52 kg; iw Height 5 ft. 8 in. (172.72 cm); 08:30 Body Mass Index 32.69 (97.52 kg, 172.72 cm) ED Course: 08:24 Patient arrived in ED. am2 08:31 Bernadette Madrigal, RN is Primary Nurse. bw 08:31 Luis Nunez MD is Attending Physician. tw4 08:32 Triage completed. iw 08:38 Call light in reach. Side rails up X 1. bw 08:38 No provider procedures requiring assistance completed. Patient did not have IV access bw during this emergency room visit. 09:10 Arm band placed on right wrist. bw Administered Medications: No medications were administered Outcome: 09:07 Medical screen evaluation completed per provider. Patient declined treatment. bw 09:07 Condition: good 09:07 Discharge instructions given to patient. 09:11 Discharge ordered by . tw4 09:12 Patient left the ED. eb Signatures: Chichi Park, RN RN Janie Harmon am2 Luis Nunez MD MD tw4 Charu Rodriguez eb Bernadette Madrigal, RN SERAFIN
[2020-06-29 09:21] VITALS: BP 125/69; TEMP 97.9; O2SAT 100
== END 2020-06-29 09:12 | disposition home or self-care (01) ==
LOC: ER 08:23
DX: Z20.822 Contact with and (suspected) exposure to COVID-19 (principal)
CPT/HCPCS: 99281

== ENCOUNTER 2021-07-19 16:24 | Emergency (ER) | payer OTHER ==
--- OUTSIDE RECORDS SUMMARY | 2021-07-19 16:29 | XMS REPORT | Continuity of Care Document ---
:1995 Author Organization [facility] t Address [address] [place] [address] Care Team Providers Name Role Phone UNKNOWN Primary Care Physician Unavailable MOLLY Attending Clinician Unavailable Molly RICKETTS Attending Clinician Claire GRANT COORDINATOR, G Attending Clinician Doctor Unassigned, Name Attending Clinician Unavailable JONATHON Attending Clinician Unavailable Tomasz Leon DO Attending Clinician Jad Park DO Attending Clinician Susy BETANCOURT M Attending Clinician Unavailable Visit, Nurse Attending Clinician Unavailable Collins JOHNSON C Attending Clinician Renetta GUADALUPE Attending Clinician Unavailable Zulay RICKETTS, N Attending Clinician Amado Diallo MD Attending Clinician Amado Diallo MD Admitting Clinician Payers Payer Name Policy Type Policy Number Effective Date Expiration Date Ivana ruiz [facility] [id number] 2017 00:00:00 PLUS Advance Directives Directive Decision Effective Termination Comments Source Date Date Healthcare Agents on N/A NPI: 1831 FileNameRelationshipHealthcare [id number] Agent RelationshipCommunicationGloria Nilton [facility] Care [phone] (Mobile) [email or web address] Problems Condition Condition Condition Status Onset Resolution Last Treating Co mments Source Name Details Category Date Date Treatment Clinician Date Other Other Disease Active NPI:183 general general 5-12 [id number] counseling counseling 00:00: and advice and advice 00 for for contracept contracept macho macho management management Normal Normal Disease Active NPI:183 labor labor 04-20 [id number] 00:00: 00 40 weeks 40 weeks Disease Active NPI:1 83 gestation gestation 04-20 1318 781 of of 00:00: 00 Liveborn Liveborn Disease Active NPI:1 83 infant, of infant, of 04-20 30800 resendez resendez 00:00: , , 00 born in born in hospital hospital by vaginal by vaginal delivery delivery Marijuana Marijuana Disease Active NPI :183 use use 11-01 [id number] 00:00: 00 High risk High risk Disease Active NPI :183 , , 11-01 13 05757 antepartum antepartum 00:00: 00 Multiparit Multiparit Disease Active N PI:183 y y 11-01 3226983 00:00: 00 Tobacco Tobacco Disease Active NPI:183 smoking smoking 11-01 [id number] affecting affecting 00:00: , , 00 antepartum antepartum Marijuana Marijuana Disease Active NPI :183 use use 11-01 [id number] 00:00: 00 BMI BMI Disease Active 2017-03 NPI:183 29.0-29.9, 29.0-29.9, 2-20 13 09193 adult adult 00:00: 00 BMI BMI Disease Active 2017-03 NPI:183 25.0-25.9, 25.0-25.9, 2-20 13 21270 adult adult 00:00: 00 Exposure Exposure Disease Active NPI:1 83 to STD to STD - [id number] 00:00: 00 Bipolar Bipolar Disease Active 2012-03 NPI:183 disorder disorder 2- 331411 1 00:00: 00 Attention Attention Disease Active 2012-03 Overview: NPI:183 deficit deficit 2-03 Formattin 47702 81 hyperactiv hyperactiv 00:00: g of this ity ity 00 note disorder disorder might be (ADHD) (ADHD) different from the original. ICD10 Diagnosis Term Speech Therapist Early Intervention Utility Allergies, Adverse Reactions, Alerts Allergy Allergy Status Severity Reaction(s) Onset Inactive Treating Comm ents Source Name Type Date Date Clinician NO KNOWN Drug Active NPI:183 ALLERGIE Class [id number] S Social History Social Habit Start Date Stop Date Quantity Comments Source ASSERTION 2018-07-28 00:00:00 Exposure to Not sure NPI:[id number] 1 SARS-CoV-2 (event) History of tobacco Cigarette Smoker use Alcohol intake 2021-06-24 2021-06-24 Current drinker of GRANT COORDINATOR I:[id number] 00:00:00 00:00:00 alcohol (finding) Tobacco use and 2018-06-03 2018-06-03 Never used NPI:17017 10501 exposure 00:00:00 00:00:00 Tobacco Comment 2018-06-03 2018-06-03 smokes 3 NPI:14151 13405 00:00:00 00:00:00 cigarettes per day. Sex [birth year] At [birth year] NPI:62226 45995 00:00:00 00:00:00 Smoking Status Start Date Stop Date Source Current every day smoker 2018-06-03 00:00:00 NPI :[id number] Medications Ordered Filled Start Stop Current Ordering Indication Dosage Frequency Signature Comments Components Source Medication Medication Date Date Medication? Clinician (SIG) Name Name HYDROcodone 2021- No 1{tbl} 1 tablet, NPI:183 -acetaminop 06-24 Oral, ONCE 1 [id number] hen (NORCO) 23:15: 22:21 NOW, 1 10-325 mg 00 :00 dose, On tablet 1 Thu tablet 06/24/21 at 1815, SONI ketorolac No 60mg 60 mg, NPI:1 83 (TORADOL) 06-24 Intramuscu 131 8781 injection 23:15: 22:22 lar, ONCE, 60 mg 00 :00 1 dose, On 06/24/21 at 1815, SONI amoxicillin 2021- No 1{tbl} 1 tablet, NPI:183 -clavulanat 06-24 Oral, ONCE 1 [id number] e 23:15: 22:20 NOW, 1 (AUGMENTIN) 00 :00 dose, On 875-125 mg Mon per tablet 06/24/21 at 1 tablet 1815, SONI
Re ason for Anti-Infec tive: Documented Infection< br>Documen sue Infection Site: HEENT
D uration of Therapy: 7 days amoxicillin 2021- Yes [id number] 1{tbl} Take 1 NPI:183 -clavulanat 06-24 tablet by 13 75766 e 875-125 00:00: 04:59 mouth 2 mg per 00 :00 (two) tablet times daily for 14 days. acetaminoph 2021- Yes [id number] 1{tbl} Take 1 N PI:183 en-codeine 06-24 tablet by 131 8781 300-30 mg 00:00: 04:59 mouth tablet 00 :00 every 6 (six) hours as needed for Pain (scale 7-10) for up to 7 days. Indication s: acute pain predniSONE 2020- No 40mg 40 mg, NPI: 183 (DELTASONE) 09-12 06-30 Oral, [id number] 1 tablet 40 03:45: 02:57 ONCE, 1 mg 00 :00 dose, 09/11/20 at 2245, Routine ipratropium 2020- No 3mL 3 mL, NPI: 183 -albuteroL 09-12 06-30 Inhalation 13 49595 (DUONEB) 03:45: 03:00 , ONCE, 1 0.5 mg-3 00 :00 dose, Tue mg(2.5 mg 09/11/20 at base)/3 mL 2245, nebulizer Routine solution 3 mL benzonatate Yes [id number] 100mg Take 1 NPI:183 100 mg 6-29 capsule by [id number] capsule 00:00: mouth 3 00 (three) times daily as needed for Cough. albuterol Yes [id number] 2{puff} Inhale 2 NPI:183 90 6-29 Puffs [id number] mcg/actuati 00:00: every 4 on inhaler 00 (four) hours as needed for Wheezing or Shortness of Breath. methylPREDN Yes [id number] Take by NPI:183 ISolone 4 6-29 mouth [id number] mg tablets 00:00: SEE-INSTRU 00 CTIONS. follow package directions benzonatate Yes [id number] 100mg Take 1 NPI:183 100 mg 6-29 capsule by [id number] capsule 00:00: mouth 3 00 (three) times daily as needed for Cough. albuterol Yes [id number] 2{puff} Inhale 2 NPI:183 90 6-29 Puffs [id number] mcg/actuati 00:00: every 4 on inhaler 00 (four) hours as needed for Wheezing or Shortness of Breath. methylPREDN Yes [id number] Take by NPI:183 ISolone 4 6-29 mouth [id number] mg tablets 00:00: SEE-INSTRU 00 CTIONS. follow package directions predniSONE 2019-03- No [id number] 50mg Take 5 NPI:183 10 mg 0-20 10-26 tablets by [id number] tablet 00:00: 04:59 mouth 00 :00 daily for 5 days. predniSONE 2019-03- No [id number] 50mg Take 5 NPI:183 10 mg 0-20 10-26 tablets by [id number] tablet 00:00: 04:59 mouth 00 :00 daily for 5 days. medroxyPROG 2020- No 150mg NPI: 183 ESTERone 08-11 [id number] (DEPO-PROVE 16:00: 16:59 RA) 00 :00 injection 150 mg medroxyPROG 2020- No 150mg 150 mg, N PI:183 ESTERone 08-11 Intramuscu 1318 781 (DEPO-PROVE 16:00: 16:59 lar, RA) 00 :00 [id number], injection 3 doses, 150 mg First dose on Thu08/12/19 at 1100, Last dose on Thu01/27/20 at 1100, Routine medroxyPROG 2020- No 150mg NPI: 183 ESTERone 08-11 [id number] (DEPO-PROVE 16:00: 16:59 RA) 00 :00 injection 150 mg medroxyPROG 2019-0 2020- No 150mg NPI: 183 ESTERone 5-29 02-05 [id number] (DEPO-PROVE 16:00: 16:59 RA) 00 :00 injection 150 mg medroxyPROG 2020- No 150mg 150 mg, N PI:183 ESTERone 2- 02-06 Intramuscu 1318 781 (DEPO-PROVE 16:30: 15:51 lar, ONCE, RA) 00 :00 1 dose, injection Alexus 04/21/19 150 mg at 1030, Routine rho(D) 2019-0 Yes 300ug 300 mcg, NPI:18 3 immune 2-06 Intramuscu [id number] globulin 02:34: lar, ONCE, (RHOGAM) 09 For 1 syringe 300 dose, mcg Conditiona l, Routine HYDROcodone 2019-0 Yes 1{tbl} 1 tablet, NPI:183 -acetaminop 2-06 Oral, [id number] hen (NORCO 02:34: Q6HPRN, 5) 5-325 mg 05 Starting tablet 1 Thu04/20/19 tablet at 2033, Until Discontinu ed, Routine, Pain (scale 7-10) ibuprofen 2019-0 Yes 600mg 600 mg, NPI: 183 (IBU) 2-06 Oral, [id number] tablet 600 02:34: Q6HPRN, mg 05 Starting Thu04/20/19 at 2033, Until Discontinu ed, Routine, Pain (scale 4-6) acetaminoph 2019-0 Yes 650mg 650 mg, GRANT COORDINATOR I:183 en 2-06 Oral, [id number] (TYLENOL) 02:34: Q6HPRN, tablet 650 05 Starting mg Thu04/20/19 at 2033, Until Discontinu ed, Routine, Pain (scale 1-3) diphenhydrA 2019-0 Yes 25mg 25 mg, NPI: 183 MINE 2-06 Oral, [id number] (BENADRYL) 02:34: Q6HPRN, tablet 25 05 Starting mg Thu04/20/19 at 2033, Until Discontinu ed, Routine, Sleep, Itching ondansetron 2019-0 Yes 4mg 4 mg, Slow NPI:183 (ZOFRAN 2-06 IV Push, [id number] (PF)) 02:34: Q8HPRN, injection 4 05 Starting mg Thu04/20/19 at 2033, Until Discontinu ed, Routine, Nausea and Vomiting (N/V) simethicone 2019-0 Yes 160mg 160 mg, GRANT COORDINATOR I:183 (GAS RELIEF 2-06 Oral, [id number] (SIMETHICON 02:34: PC+HSPRN, E)) 05 Starting chewable 04/20/19 tablet 160 at 2033, mg Until Discontinu ed, Routine, Gas docusate 2019-0 Yes 240mg 240 mg, NPI:1 83 calcium 2-06 Oral, [id number] (SURFAK) 02:34: QDAILYPRN, capsule 240 05 Starting mg Thu04/20/19 at 2033, Until Discontinu ed, Routine, Constipati on magnesium 2019-0 Yes 30mL 30 mL, NPI:18 3 hydroxide 2-06 Oral, [id number] (MILK OF 02:34: QDAILYPRN, MAGNESIA) 05 Starting 400 mg/5 mL Thu04/20/19 suspension at 2033, 30 mL Until Discontinu ed, Routine, Constipati on benzocaine- 2019-0 Yes Topical, GRANT COORDINATOR I:183 menthol 2-06 PRN, [id number] (DERMOPLAST 02:34: Starting ) 20-0.5 % 05 Thu04/20/19 topical at 2033, spray Until Discontinu ed, Routine, Perineum discomfort 2019-0 Yes [id number] 1{tbl} Take 1 NPI:183 vitamin 2-06 tablet by [id number] w/FA tablet 00:00: mouth 00 daily. docusate 2020-0 Yes [id number] 240mg Take 1 N PI:183 calcium 240 2-06 capsule by 13 91670 mg capsule 00:00: mouth once 00 daily as needed for Constipati on. ferrous 2020-0 Yes [id number] 325mg Take 1 GRANT COORDINATOR I:183 sulfate 325 2-06 tablet by 131 8781 mg (65 mg 00:00: mouth 2 iron) 00 (two) tablet times daily. ibuprofen 2019-0 Yes [id number] 600mg Take 1 NPI:183 600 mg 2-06 tablet by [id number] tablet 00:00: mouth 00 every 6 (six) hours as needed for Pain (scale 1-3) or Pain (scale 4-6) (Pain). Take with food or milk. 2020-0 Yes [id number] 1{tbl} Take 1 NPI:183 vitamin 2-06 tablet by [id number] w/FA tablet 00:00: mouth 00 daily. docusate 2020-0 Yes [id number] 240mg Take 1 N PI:183 calcium 240 2-06 capsule by 13 81605 mg capsule 00:00: mouth once 00 daily as needed for Constipati on. ferrous 2020-0 Yes [id number] 325mg Take 1 GRANT COORDINATOR I:183 sulfate 325 2-06 tablet by 131 8781 mg (65 mg 00:00: mouth 2 iron) 00 (two) tablet times daily. ibuprofen 2020-0 Yes [id number] 600mg Take 1 NPI:183 600 mg 2-06 tablet by [id number] tablet 00:00: mouth 00 every 6 (six) hours as needed for Pain (scale 1-3) or Pain (scale 4-6) (Pain). Take with food or milk. 2020-0 Yes [id number] 1{tbl} Take 1 NPI:183 vitamin 2-06 tablet by [id number] w/FA tablet 00:00: mouth 00 daily. docusate 2020-0 Yes [id number] 240mg Take 1 N PI:183 calcium 240 2-06 capsule by 13 98874 mg capsule 00:00: mouth once 00 daily as needed for Constipati on. ferrous 2020-0 Yes [id number] 325mg Take 1 GRANT COORDINATOR I:183 sulfate 325 2-06 tablet by 131 8781 mg (65 mg 00:00: mouth 2 iron) 00 (two) tablet times daily. ibuprofen 2020-0 Yes [id number] 600mg Take 1 NPI:183 600 mg 2-06 tablet by [id number] tablet 00:00: mouth 00 every 6 (six) hours as needed for Pain (scale 1-3) or Pain (scale 4-6) (Pain). Take with food or milk. 2020-0 Yes [id number] 1{tbl} Take 1 NPI:183 vitamin 2-06 tablet by 4963989 w/FA tablet 00:00: mouth 00 daily. docusate 2020-0 Yes [id number] 240mg Take 1 N PI:183 calcium 240 2-06 capsule by 13 75991 mg capsule 00:00: mouth once 00 daily as needed for Constipati on. ferrous 2020-0 Yes [id number] 325mg Take 1 GRANT COORDINATOR I:183 sulfate 325 2-06 tablet by 131 8781 mg (65 mg 00:00: mouth 2 iron) 00 (two) tablet times daily. ibuprofen 2020-0 Yes [id number] 600mg Take 1 NPI:183 600 mg 2-06 tablet by [id number] tablet 00:00: mouth 00 every 6 (six) hours as needed for Pain (scale 1-3) or Pain (scale 4-6) (Pain). Take with food or milk. 2020-0 Yes [id number] 1{tbl} Take 1 NPI:183 vitamin 2-06 tablet by 9404976 w/FA tablet 00:00: mouth 00 daily. docusate 2020-0 Yes [id number] 240mg Take 1 N PI:183 calcium 240 2-06 capsule by 13 88386 mg capsule 00:00: mouth once 00 daily as needed for Constipati on. ferrous 2020-0 Yes [id number] 325mg Take 1 GRANT COORDINATOR I:183 sulfate 325 2-06 tablet by 131 8781 mg (65 mg 00:00: mouth 2 iron) 00 (two) tablet times daily. ibuprofen 2020-0 Yes [id number] 600mg Take 1 NPI:183 600 mg 2-06 tablet by [id number] tablet 00:00: mouth 00 every 6 (six) hours as needed for Pain (scale 1-3) or Pain (scale 4-6) (Pain). Take with food or milk. 2020-0 Yes [id number] 1{tbl} Take 1 NPI:183 vitamin 2-06 tablet by 9373132 w/FA tablet 00:00: mouth 00 daily. docusate 2020-0 Yes [id number] 240mg Take 1 N PI:183 calcium 240 2-06 capsule by 13 44042 mg capsule 00:00: mouth once 00 daily as needed for Constipati on. ferrous 2020-0 Yes [id number] 325mg Take 1 GRANT COORDINATOR I:183 sulfate 325 2-06 tablet by 131 8781 mg (65 mg 00:00: mouth 2 iron) 00 (two) tablet times daily. ibuprofen 2020-0 Yes [id number] 600mg Take 1 NPI:183 600 mg 2-06 tablet by [id number] tablet 00:00: mouth 00 every 6 (six) hours as needed for Pain (scale 1-3) or Pain (scale 4-6) (Pain). Take with food or milk. 2020-0 Yes [id number] 1{tbl} Take 1 NPI:183 vitamin 2-06 tablet by 6096009 w/FA tablet 00:00: mouth 00 daily. docusate 2020-0 Yes [id number] 240mg Take 1 N PI:183 calcium 240 2-06 capsule by 13 90174 mg capsule 00:00: mouth once 00 daily as needed for Constipati on. ferrous 2020-0 Yes [id number] 325mg Take 1 GRANT COORDINATOR I:183 sulfate 325 2-06 tablet by 131 8781 mg (65 mg 00:00: mouth 2 iron) 00 (two) tablet times daily. ibuprofen 2020-0 Yes [id number] 600mg Take 1 NPI:183 600 mg 2-06 tablet by [id number] tablet 00:00: mouth 00 every 6 (six) hours as needed for Pain (scale 1-3) or Pain (scale 4-6) (Pain). Take with food or milk. 2020-0 Yes [id number] 1{tbl} Take 1 NPI:183 vitamin 2-06 tablet by 9653088 w/FA tablet 00:00: mouth 00 daily. docusate 2020-0 Yes [id number] 240mg Take 1 N PI:183 calcium 240 2-06 capsule by 13 21673 mg capsule 00:00: mouth once 00 daily as needed for Constipati on. ferrous 2020-0 Yes [id number] 325mg Take 1 GRANT COORDINATOR I:183 sulfate 325 2-06 tablet by 131 8781 mg (65 mg 00:00: mouth 2 iron) 00 (two) tablet times daily. ibuprofen 2020-0 Yes [id number] 600mg Take 1 NPI:183 600 mg 2-06 tablet by [id number] tablet 00:00: mouth 00 every 6 (six) hours as needed for Pain (scale 1-3) or Pain (scale 4-6) (Pain). Take with food or milk. 2020-0 Yes [id number] 1{tbl} Take 1 NPI:183 vitamin 2-06 tablet by 2850896 w/FA tablet 00:00: mouth 00 daily. docusate 2020-0 Yes [id number] 240mg Take 1 N PI:183 calcium 240 2-06 capsule by 13 82034 mg capsule 00:00: mouth once 00 daily as needed for Constipati on. ferrous 2020-0 Yes [id number] 325mg Take 1 GRANT COORDINATOR I:183 sulfate 325 2-06 tablet by 131 8781 mg (65 mg 00:00: mouth 2 iron) 00 (two) tablet times daily. ibuprofen 2020-0 Yes [id number] 600mg Take 1 NPI:183 600 mg 2-06 tablet by [id number] tablet 00:00: mouth 00 every 6 (six) hours as needed for Pain (scale 1-3) or Pain (scale 4-6) (Pain). Take with food or milk. 2020-0 Yes [id number] 1{tbl} Take 1 NPI:183 vitamin 2-06 tablet by 6428109 w/FA tablet 00:00: mouth 00 daily. docusate 2020-0 Yes [id number] 240mg Take 1 N PI:183 calcium 240 2-06 capsule by 13 44720 mg capsule 00:00: mouth once 00 daily as needed for Constipati on. ferrous 2020-0 Yes [id number] 325mg Take 1 GRANT COORDINATOR I:183 sulfate 325 2-06 tablet by 131 8781 mg (65 mg 00:00: mouth 2 iron) 00 (two) tablet times daily. ibuprofen 2020-0 Yes [id number] 600mg Take 1 NPI:183 600 mg 2-06 tablet by 2407835 tablet 00:00: mouth 00 every 6 (six) hours as needed for Pain (scale 1-3) or Pain (scale 4-6) (Pain). Take with food or milk. 2020-0 Yes [id number] 1{tbl} Take 1 NPI:183 vitamin 2-06 tablet by 1915516 w/FA tablet 00:00: mouth 00 daily. docusate 2020-0 Yes [id number] 240mg Take 1 N PI:183 calcium 240 2-06 capsule by 13 94980 mg capsule 00:00: mouth once 00 daily as needed for Constipati on. ferrous 2020-0 Yes [id number] 325mg Take 1 GRANT COORDINATOR I:183 sulfate 325 2-06 tablet by 131 8781 mg (65 mg 00:00: mouth 2 iron) 00 (two) tablet times daily. ibuprofen 2020-0 Yes [id number] 600mg Take 1 NPI:183 600 mg 2-06 tablet by [id number] tablet 00:00: mouth 00 every 6 (six) hours as needed for Pain (scale 1-3) or Pain (scale 4-6) (Pain). Take with food or milk. 2020-0 Yes [id number] 1{tbl} Take 1 NPI:183 vitamin 2-06 tablet by 3832094 w/FA tablet 00:00: mouth 00 daily. docusate 2020-0 Yes [id number] 240mg Take 1 N PI:183 calcium 240 2-06 capsule by 13 69786 mg capsule 00:00: mouth once 00 daily as needed for Constipati on. ferrous 2020-0 Yes [id number] 325mg Take 1 GRANT COORDINATOR I:183 sulfate 325 2-06 tablet by 131 8781 mg (65 mg 00:00: mouth 2 iron) 00 (two) tablet times daily. ibuprofen 2020-0 Yes [id number] 600mg Take 1 NPI:183 600 mg 2-06 tablet by 4293456 tablet 00:00: mouth 00 every 6 (six) hours as needed for Pain (scale 1-3) or Pain (scale 4-6) (Pain). Take with food or milk. 2020-0 Yes [id number] 1{tbl} Take 1 NPI:183 vitamin 2-06 tablet by 8186169 w/FA tablet 00:00: mouth 00 daily. docusate 2020-0 Yes [id number] 240mg Take 1 N PI:183 calcium 240 2-06 capsule by 13 42728 mg capsule 00:00: mouth once 00 daily as needed for Constipati on. ferrous 2020-0 Yes [id number] 325mg Take 1 GRANT COORDINATOR I:183 sulfate 325 2-06 tablet by 131 8781 mg (65 mg 00:00: mouth 2 iron) 00 (two) tablet times daily. ibuprofen 2020-0 Yes [id number] 600mg Take 1 NPI:183 600 mg 2-06 tablet by [id number] tablet 00:00: mouth 00 every 6 (six) hours as needed for Pain (scale 1-3) or Pain (scale 4-6) (Pain). Take with food or milk. 2020-0 Yes [id number] 1{tbl} Take 1 NPI:183 vitamin 2-06 tablet by 6542438 w/FA tablet 00:00: mouth 00 daily. docusate 2020-0 Yes [id number] 240mg Take 1 N PI:183 calcium 240 2-06 capsule by 13 56704 mg capsule 00:00: mouth once 00 daily as needed for Constipati on. ferrous 2020-0 Yes [id number] 325mg Take 1 GRANT COORDINATOR I:183 sulfate 325 2-06 tablet by 131 8781 mg (65 mg 00:00: mouth 2 iron) 00 (two) tablet times daily. ibuprofen 2020-0 Yes [id number] 600mg Take 1 NPI:183 600 mg 2-06 tablet by 6247220 tablet 00:00: mouth 00 every 6 (six) hours as needed for Pain (scale 1-3) or Pain (scale 4-6) (Pain). Take with food or milk. 2020-0 Yes [id number] 1{tbl} Take 1 NPI:183 vitamin 2-06 tablet by 7215859 w/FA tablet 00:00: mouth 00 daily. docusate 2020-0 Yes [id number] 240mg Take 1 N PI:183 calcium 240 2-06 capsule by 13 81140 mg capsule 00:00: mouth once 00 daily as needed for Constipati on. ferrous 2020-0 Yes [id number] 325mg Take 1 GRANT COORDINATOR I:183 sulfate 325 2-06 tablet by 131 8781 mg (65 mg 00:00: mouth 2 iron) 00 (two) tablet times daily. ibuprofen 2020-0 Yes [id number] 600mg Take 1 NPI:183 600 mg 2-06 tablet by [id number] tablet 00:00: mouth 00 every 6 (six) hours as needed for Pain (scale 1-3) or Pain (scale 4-6) (Pain). Take with food or milk. 2020-0 Yes [id number] 1{tbl} Take 1 NPI:183 vitamin 2-06 tablet by 2774635 w/FA tablet 00:00: mouth 00 daily. docusate 2020-0 Yes [id number] 240mg Take 1 N PI:183 calcium 240 2-06 capsule by 13 25869 mg capsule 00:00: mouth once 00 daily as needed for Constipati on. ferrous 2020-0 Yes [id number] 325mg Take 1 GRANT COORDINATOR I:183 sulfate 325 2-06 tablet by 131 8781 mg (65 mg 00:00: mouth 2 iron) 00 (two) tablet times daily. ibuprofen 2020-0 Yes [id number] 600mg Take 1 NPI:183 600 mg 2-06 tablet by [id number] tablet 00:00: mouth 00 every 6 (six) hours as needed for Pain (scale 1-3) or Pain (scale 4-6) (Pain). Take with food or milk. D5W-LR IV 2019- No 1000mL at 125 NPI :183 infusion 205 02-06 mL/hr, [place] [address] 81 1,000 mL 17:30: 02:34 Infusion, 00 :10 CONTINUOUS , Starting Thu04/20/19 at 1130, Until Thu04/20/19 at 2033, Routine FENTanyl PF 2020- No 100ug 100 mcg, NPI:183 (SUBLIMAZE 2 02-[place] [address] 81 (PF)) 17:21: 02:34 Push, injection 39 :10 Q1HPRN, 100 mcg Starting Thu04/20/19 at 1121, Until Thu04/20/19 at 2033, Routine, contractio n pain without an epidural and SVE < 8 cm and Cat I strip PNV 67-iron Yes [id number] 1{capsu Take 1 NPI:183 ps-folate 8-19 le} capsule by 1318 781 no.1-dha 00:00: mouth (VITAFOL 00 daily. ULTRA) 29 mg iron- 1 mg-200 mg Cap PNV 67-iron Yes [id number] 1{capsu Take 1 NPI:183 ps-folate 8-19 le} capsule by 1318 781 no.1-dha 00:00: mouth (VITAFOL 00 daily. ULTRA) 29 mg iron- 1 mg-200 mg Cap PNV 67-iron Yes [id number] 1{capsu Take 1 NPI:183 ps-folate 8-19 le} capsule by 1318 781 no.1-dha 00:00: mouth (VITAFOL 00 daily. ULTRA) 29 mg iron- 1 mg-200 mg Cap PNV 67-iron Yes [id number] 1{capsu Take 1 NPI:183 ps-folate 8-19 le} capsule by 1318 781 no.1-dha 00:00: mouth (VITAFOL 00 daily. ULTRA) 29 mg iron- 1 mg-200 mg Cap PNV 67-iron Yes [id number] 1{capsu Take 1 NPI:183 ps-folate 8-19 le} capsule by 1318 781 no.1-dha 00:00: mouth (VITAFOL 00 daily. ULTRA) 29 mg iron- 1 mg-200 mg Cap PNV 67-iron 2019-0 Yes [id number] 1{capsu Take 1 NPI:183 ps-folate 8-19 le} capsule by 1318 781 no.1-dha 00:00: mouth (VITAFOL 00 daily. ULTRA) 29 mg iron- 1 mg-200 mg Cap PNV 67-iron 2019-0 Yes [id number] 1{capsu Take 1 NPI:183 ps-folate 8-19 le} capsule by 1318 781 no.1-dha 00:00: mouth (VITAFOL 00 daily. ULTRA) 29 mg iron- 1 mg-200 mg Cap PNV 67-iron 2019-0 Yes [id number] 1{capsu Take 1 NPI:183 ps-folate 8-19 le} capsule by 1318 781 no.1-dha 00:00: mouth (VITAFOL 00 daily. ULTRA) 29 mg iron- 1 mg-200 mg Cap PNV 67-iron 2019-0 Yes [id number] 1{capsu Take 1 NPI:183 ps-folate 8-19 le} capsule by 1318 781 no.1-dha 00:00: mouth (VITAFOL 00 daily. ULTRA) 29 mg iron- 1 mg-200 mg Cap PNV 67-iron 2019-0 Yes [id number] 1{capsu Take 1 NPI:183 ps-folate 8-19 le} capsule by 1318 781 no.1-dha 00:00: mouth (VITAFOL 00 daily. ULTRA) 29 mg iron- 1 mg-200 mg Cap PNV 67-iron 2019-0 Yes [id number] 1{capsu Take 1 NPI:183 ps-folate 8-19 le} capsule by 1318 781 no.1-dha 00:00: mouth (VITAFOL 00 daily. ULTRA) 29 mg iron- 1 mg-200 mg Cap PNV 67-iron 2019-0 Yes [id number] 1{capsu Take 1 NPI:183 ps-folate 8-19 le} capsule by 1318 781 no.1-dha 00:00: mouth (VITAFOL 00 daily. ULTRA) 29 mg iron- 1 mg-200 mg Cap PNV 67-iron 2019-0 Yes [id number] 1{capsu Take 1 NPI:183 ps-folate 8-19 le} capsule by 1318 781 no.1-dha 00:00: mouth (VITAFOL 00 daily. ULTRA) 29 mg iron- 1 mg-200 mg Cap PNV 67-iron 2019-0 Yes [id number] 1{capsu Take 1 NPI:183 ps-folate 8-19 le} capsule by 1318 781 no.1-dha 00:00: mouth (VITAFOL 00 daily. ULTRA) 29 mg iron- 1 mg-200 mg Cap PNV 67-iron 2019-0 Yes [id number] 1{capsu Take 1 NPI:183 ps-folate 8-19 le} capsule by 1318 781 no.1-dha 00:00: mouth (VITAFOL 00 daily. ULTRA) 29 mg iron- 1 mg-200 mg Cap PNV 67-iron 2019-0 Yes [id number] 1{capsu Take 1 NPI:183 ps-folate 8-19 le} capsule by 1318 781 no.1-dha 00:00: mouth (VITAFOL 00 daily. ULTRA) 29 mg iron- 1 mg-200 mg Cap PNV 67-iron 2019-0 Yes [id number] 1{capsu Take 1 NPI:183 ps-folate 8-19 le} capsule by 1318 781 no.1-dha 00:00: mouth (VITAFOL 00 daily. ULTRA) 29 mg iron- 1 mg-200 mg Cap PNV 67-iron 2019-0 Yes [id number] 1{capsu Take 1 NPI:183 ps-folate 8-19 le} capsule by 1318 781 no.1-dha 00:00: mouth (VITAFOL 00 daily. ULTRA) 29 mg iron- 1 mg-200 mg Cap PNV 67-iron 2019-0 Yes [id number] 1{capsu Take 1 NPI:183 ps-folate 8-19 le} capsule by 1318 781 no.1-dha 00:00: mouth (VITAFOL 00 daily. ULTRA) 29 mg iron- 1 mg-200 mg Cap PNV 67-iron 2019-0 Yes [id number] 1{capsu Take 1 NPI:183 ps-folate 8-19 le} capsule by 1318 781 no.1-dha 00:00: mouth (VITAFOL 00 daily. ULTRA) 29 mg iron- 1 mg-200 mg Cap PNV 67-iron 2019-0 Yes [id number] 1{capsu Take 1 NPI:183 ps-folate 8-19 le} capsule by 1318 781 no.1-dha 00:00: mouth (VITAFOL 00 daily. ULTRA) 29 mg iron- 1 mg-200 mg Cap norgestimat 2017-03 Yes [id number] 1{tbl} Take 1 NPI:183 e-ethinyl 2-[place] [id number] estradiol 00:00: mouth (ORTHO 00 daily. TRI-CYCLEN LO, 28,) 0.18/0.215/ 0.25 mg-25 mcg tablet norgestimat 2017-03 2019- No [id number] 1{tbl} Take 1 NPI:183 e-ethinyl 2-20 08-19 tablet by 1318 781 estradiol 00:00: 00:00 mouth (ORTHO 00 :00 daily. TRI-CYCLEN LO, 28,) 0.18/0.215/ 0.25 mg-25 mcg tablet Immunizations Ordered Immunization Filled Immunization Date Status Commen ts Source Name Name [facility] 2017-12-08 Completed 00:00:00 Td 2017-12-08 Completed 00:00:00 Td 2017-12-08 Completed 00:00:00 Td 2017-12-08 Completed 00:00:00 Td 2017-12-08 Completed 00:00:00 Tdap 2017-12-08 Completed 00:00:00 Tdap 2017-12-08 Completed 00:00:00 Tdap 2017-12-08 Completed 00:00:00 Tdap 2017-12-08 Completed 00:00:00 Tdap 2017-12-08 Completed 00:00:00 Tdap 2017-12-08 Completed 00:00:00 TDAP 2017-12-08 Completed 00:00:00 TDAP 2017-12-08 Completed 00:00:00 [facility] 2017-12-08 Completed 00:00:00 TD 2017-12-08 Completed 00:00:00 TD 2017-12-08 Completed 00:00:00 TD 2017-12-08 Completed 00:00:00 [facility] 2017-12-08 Completed 00:00:00 [facility] 2017-12-08 Completed 00:00:00 [facility] 2017-12-08 Completed 00:00:00 [facility] 2017-12-08 Completed 00:00:00 [facility] 2017-12-08 Completed 00:00:00 HPV 2010-10-18 Completed 00:00:00 Rubella 2010-10-18 Completed 00:00:00 HPV 2010-10-18 Completed 00:00:00 Rubella 2010-10-18 Completed 00:00:00 HPV 2010-10-18 Completed 00:00:00 Rubella 2010-10-18 Completed 00:00:00 HPV 2010-10-18 Completed 00:00:00 Rubella 2010-10-18 Completed 00:00:00 HPV 2010-10-18 Completed 00:00:00 Rubella 2010-10-18 Completed 00:00:00 HPV 2010-10-18 Completed 00:00:00 Rubella 2010-10-18 Completed 00:00:00 HPV 2010-10-18 Completed 00:00:00 Rubella 2010-10-18 Completed 00:00:00 HPV 2010-10-18 Completed 00:00:00 Rubella 2010-10-18 Completed 00:00:00 HPV 2010-10-18 Completed 00:00:00 Rubella 2010-10-18 Completed 00:00:00 HPV 2010-10-18 Completed 00:00:00 Rubella 2010-10-18 Completed 00:00:00 HPV 2010-10-18 Completed 00:00:00 Rubella 2010-10-18 Completed 00:00:00 HPV 2010-10-18 Completed 00:00:00 Rubella 2010-10-18 Completed 00:00:00 HPV 2010-10-18 Completed 00:00:00 Rubella 2010-10-18 Completed 00:00:00 HPV 2010-10-18 Completed 00:00:00 Rubella 2010-10-18 Completed 00:00:00 HPV 2010-10-18 Completed 00:00:00 Rubella 2010-10-18 Completed 00:00:00 HPV 2010-10-18 Completed 00:00:00 Rubella 2010-10-18 Completed 00:00:00 HPV 2010-10-18 Completed 00:00:00 Rubella 2010-10-18 Completed 00:00:00 HPV 2010-10-18 Completed 00:00:00 Rubella 2010-10-18 Completed 00:00:00 HPV 2010-10-18 Completed 00:00:00 Rubella 2010-10-18 Completed 00:00:00 HPV 2010-10-18 Completed 00:00:00 Rubella 2010-10-18 Completed 00:00:00 HPV 2010-10-18 Completed 00:00:00 Rubella 2010-10-18 Completed 00:00:00 HPV 2010-10-18 Completed 00:00:00 Rubella 2010-10-18 Completed 00:00:00 HPV 2010-07-30 Completed 00:00:00 HPV 2010-07-30 Completed 00:00:00 HPV 2010-07-30 Completed 00:00:00 HPV 2010-07-30 Completed 00:00:00 HPV 2010-07-30 Completed 00:00:00 HPV 2010-07-30 Completed 00:00:00 HPV 2010-07-30 Completed 00:00:00 HPV 2010-07-30 Completed 00:00:00 HPV 2010-07-30 Completed 00:00:00 HPV 2010-07-30 Completed 00:00:00 HPV 2010-07-30 Completed 00:00:00 HPV 2010-07-30 Completed 00:00:00 HPV 2010-07-30 Completed 00:00:00 HPV 2010-07-30 Completed 00:00:00 HPV 2010-07-30 Completed 00:00:00 HPV 2010-07-30 Completed 00:00:00 HPV 2010-07-30 Completed 00:00:00 HPV 2010-07-30 Completed 00:00:00 HPV 2010-07-30 Completed 00:00:00 HPV 2010-07-30 Completed 00:00:00 HPV 2010-07-30 Completed 00:00:00 HPV 2010-07-30 Completed 00:00:00 Tdap 2008-03-16 Completed 00:00:00 Tdap 2008-03-16 Completed 00:00:00 Tdap 2008-03-16 Completed 00:00:00 Tdap 2008-03-16 Completed 00:00:00 Tdap 2008-03-16 Completed 00:00:00 Td 2008-03-16 Completed 00:00:00 Tdap 2008-03-16 Completed 00:00:00 Tdap 2008-03-16 Completed 00:00:00 Td 2008-03-16 Completed 00:00:00 Td 2008-03-16 Completed 00:00:00 Td 2008-03-16 Completed 00:00:00 [facility] 2008-03-16 Completed 00:00:00 [facility] 2008-03-16 Completed 00:00:00 [facility] 2008-03-16 Completed 00:00:00 [facility] 2008-03-16 Completed 00:00:00 [facility] 2008-03-16 Completed 00:00:00 [facility] 2008-03-16 Completed 00:00:00 [facility] 2008-03-16 Completed 00:00:00 [facility] 2008-03-16 Completed 00:00:00 [facility] 2008-03-16 Completed 00:00:00 [facility] 2008-03-16 Completed 00:00:00 [facility] 2008-03-16 Completed 00:00:00 Vital Signs Vital Name Observation Time Observation Value Comments Source Systolic blood pressure 2021-06-24 22:27:42 134 mm[Hg] Diastolic blood 2021-06-24 22:27:42 78 mm[Hg] NPI:1 [id number] pressure Heart rate 2021-06-24 22:27:42 67 /min NPI:1831 [id number] Respiratory rate 2021-06-24 22:27:42 18 /min Oxygen saturation in 2021-06-24 22:27:42 97 /min Arterial blood by Pulse oximetry Body temperature 2021-06-24 21:13:00 37.56 Sharon Body height 2021-06-24 21:13:00 172.7 cm NPI:1831 [id number] Body weight 2021-06-24 21:13:00 108.863 kg NPI:1831 135216 BMI 2021-06-24 21:13:00 36.49 kg/m2 NPI:1831 [id number] Heart rate 2020-09-12 03:00:00 68 /min NPI:1831 [id number] Respiratory rate 2020-09-12 03:00:00 18 /min Oxygen saturation in 2020-09-12 03:00:00 97 /min Arterial blood by Pulse oximetry Systolic blood pressure 2020-09-12 01:34:00 166 mm[Hg] Diastolic blood 2020-09-12 01:34:00 96 mm[Hg] NPI:1 [id number] pressure Body temperature 2020-09-12 01:34:00 37.5 Sharon Body weight 2020-09-12 01:34:00 97.523 kg NPI:1831 475508 BMI 2020-09-12 01:34:00 32.69 kg/m2 NPI:1831 [id number] Systolic blood pressure 2020-06-12 16:04:00 133 mm[Hg] Diastolic blood 2020-06-12 16:04:00 74 mm[Hg] NPI:1 [id number] pressure Heart rate 2020-06-12 16:04:00 77 /min NPI:1831 383414 Body temperature 2020-06-12 16:04:00 36.61 Sharon Respiratory rate 2020-06-12 16:04:00 14 /min Body weight 2020-06-12 16:04:00 86.183 kg NPI:1831 [id number] BMI 2020-06-12 16:04:00 28.89 kg/m2 NPI:1831 000988 Oxygen saturation in 2020-06-12 16:04:00 97 /min Arterial blood by Pulse oximetry Systolic blood pressure 2020-06-12 16:04:00 133 mm[Hg] Diastolic blood 2020-06-12 16:04:00 74 mm[Hg] NPI:1 [id number] pressure Heart rate 2020-06-12 16:04:00 77 /min NPI:1831 149970 Body temperature 2020-06-12 16:04:00 36.61 Sharon Respiratory rate 2020-06-12 16:04:00 14 /min Body weight 2020-06-12 16:04:00 86.183 kg NPI:1831 133287 BMI 2020-06-12 16:04:00 28.89 kg/m2 NPI:1831 564211 Oxygen saturation in 2020-06-12 16:04:00 97 /min Arterial blood by Pulse oximetry Systolic blood pressure 2020-01-03 15:11:00 153 mm[Hg] Diastolic blood 2020-01-03 15:11:00 89 mm[Hg] NPI:1 [id number] pressure Heart rate 2020-01-03 15:11:00 88 /min NPI:1831 363291 Body temperature 2020-01-03 15:11:00 37.33 Sharon Respiratory rate 2020-01-03 15:11:00 18 /min Body weight 2020-01-03 15:11:00 86.183 kg NPI:1831 175149 BMI 2020-01-03 15:11:00 28.89 kg/m2 NPI:1831 499919 Oxygen saturation in 2020-01-03 15:11:00 98 /min Arterial blood by Pulse oximetry Systolic blood pressure 2020-01-03 15:11:00 153 mm[Hg] Diastolic blood 2020-01-03 15:11:00 89 mm[Hg] NPI:1 [id number] pressure Heart rate 2020-01-03 15:11:00 88 /min NPI:1831 005161 Body temperature 2020-01-03 15:11:00 37.33 Sharon Respiratory rate 2020-01-03 15:11:00 18 /min Body weight 2020-01-03 15:11:00 86.183 kg NPI:1831 734319 BMI 2020-01-03 15:11:00 28.89 kg/m2 NPI:1831 694584 Oxygen saturation in 2020-01-03 15:11:00 98 /min Arterial blood by Pulse oximetry Systolic blood pressure 2019-08-12 15:40:00 130 mm[Hg] Diastolic blood 2019-08-12 15:40:00 81 mm[Hg] NPI:1 [id number] pressure Heart rate 2019-08-12 15:40:00 86 /min NPI:1831 933191 Body temperature 2019-08-12 15:40:00 36.17 Sharon Respiratory rate 2019-08-12 15:40:00 16 /min Body height 2019-08-12 15:40:00 172.7 cm NPI:1831 672174 Body weight 2019-08-12 15:40:00 87.998 kg NPI:1831 539858 BMI 2019-08-12 15:40:00 29.50 kg/m2 NPI:1831 113979 Systolic blood pressure 2019-08-12 15:40:00 130 mm[Hg] Diastolic blood 2019-08-12 15:40:00 81 mm[Hg] NPI:1 [id number] pressure Heart rate 2019-08-12 15:40:00 86 /min NPI:1831 544396 Body temperature 2019-08-12 15:40:00 36.17 Sharon Respiratory rate 2019-08-12 15:40:00 16 /min Body height 2019-08-12 15:40:00 172.7 cm NPI:1831 680443 Body weight 2019-08-12 15:40:00 87.998 kg NPI:1831 202744 BMI 2019-08-12 15:40:00 29.50 kg/m2 NPI:1831 655355 Systolic blood pressure 2019-07-26 19:33:00 109 mm[Hg] Diastolic blood 2019-07-26 19:33:00 72 mm[Hg] NPI:1 [id number] pressure Heart rate 2019-07-26 19:33:00 71 /min NPI:1831 365731 Body temperature 2019-07-26 19:33:00 36.78 Sharon Respiratory rate 2019-07-26 19:33:00 16 /min Body height 2019-07-26 19:33:00 172.7 cm NPI:1831 533442 Body weight 2019-07-26 19:33:00 87.573 kg NPI:1831 108065 BMI 2019-07-26 19:33:00 29.36 kg/m2 NPI:1831 743751 Systolic blood pressure 2019-07-26 19:33:00 109 mm[Hg] Diastolic blood 2019-07-26 19:33:00 72 mm[Hg] NPI:1 [id number] pressure Heart rate 2019-07-26 19:33:00 71 /min NPI:1831 336494 Body temperature 2019-07-26 19:33:00 36.78 Sharon Respiratory rate 2019-07-26 19:33:00 16 /min Body height 2019-07-26 19:33:00 172.7 cm NPI:1831 144827 Body weight 2019-07-26 19:33:00 87.573 kg NPI:1831 219499 BMI 2019-07-26 19:33:00 29.36 kg/m2 NPI:1831 812831 Systolic blood pressure 2019-04-21 21:30:00 126 mm[Hg] Diastolic blood 2019-04-21 21:30:00 64 mm[Hg] NPI:1 [id number] pressure Heart rate 2019-04-21 21:30:00 62 /min NPI:1831 015031 Body temperature 2019-04-21 21:30:00 36.5 Sharon Respiratory rate 2019-04-21 21:30:00 18 /min Oxygen saturation in 2019-04-21 21:30:00 99 /min Arterial blood by Pulse oximetry Body height 2019-04-20 16:47:00 172.7 cm NPI:1831 848651 Body weight 2019-04-20 16:47:00 85.276 kg NPI:1831 014215 BMI 2019-04-20 16:47:00 28.59 kg/m2 NPI:1831 012257 Systolic blood pressure 2018-11-01 19:43:00 113 mm[Hg] Diastolic blood 2018-11-01 19:43:00 67 mm[Hg] NPI:1 [id number] pressure Heart rate 2018-11-01 19:43:00 87 /min NPI:1831 463141 Body temperature 2018-11-01 19:43:00 37.11 Sharon Respiratory rate 2018-11-01 19:43:00 16 /min Body height 2018-11-01 19:43:00 172.7 cm NPI:1831 812658 Body weight 2018-11-01 19:43:00 77.111 kg NPI:1831 152757 BMI 2018-11-01 19:43:00 25.85 kg/m2 NPI:1831 486252 Procedures Procedure Date / Time Performed Performing Clinician [facility] e NOTICE OF PRIVACY 2021-06-24 21:03:18 Doctor Unassigned, No PRACTICES Name CONSENT/REFUSAL FOR 2021-06-24 21:03:07 Doctor Unassigned, No GRANT COORDINATOR I:[id number] DIAGNOSIS AND TREATMENT Name XR CHEST 1 VW 2020-09-12 02:56:56 Rea Salmon NPI:[id number] POCT TEST 2020-09-12 02:09:00 Rea Salmon NPI:525 [id number] COVID-19 (ID NOW RAPID 2020-09-12 02:06:00 Rea Salmon TESTING) CONSENT/REFUSAL FOR 2020-09-12 01:20:13 Doctor Unassigned, No GRANT COORDINATOR I:[id number] DIAGNOSIS AND TREATMENT Name NOTICE OF PRIVACY 2020-06-12 15:58:15 Doctor Unassigned, No PRACTICES Name CONSENT/REFUSAL FOR 2020-06-12 15:58:03 Doctor Unassigned, No GRANT COORDINATOR I:[id number] DIAGNOSIS AND TREATMENT Name NOTICE OF PRIVACY 2020-01-03 14:52:20 Doctor Unassigned, No PRACTICES Name CONSENT/REFUSAL FOR 2020-01-03 14:51:58 Doctor Unassigned, No GRANT COORDINATOR I:[id number] DIAGNOSIS AND TREATMENT Name POCT TEST 2019-07-26 20:23:00 Yola Guadalupe NPI :[id number] CBC WITH DIFFERENTIAL 2019-04-21 10:10:00 Yamel Diallo NPI:18 [id number] VENOUS CORD GAS 2019-04-20 23:48:00 Yamel Diallo NPI:[id number] HB ABO GROUPING 2019-04-20 18:00:00 Yamel Diallo NPI:[id number] RHO (D) IMMUNE GLOBULIN 2019-04-20 18:00:00 Yamel Diallo CBC WITH DIFFERENTIAL 2019-04-20 17:57:00 Yamel Diallo NPI:18 [id number] HEPATITIS B SURFACE 2019-04-20 17:57:00 Yamel Diallo NPI:1831 [id number] ANTIGEN ADC OR IVETH ONLY - RPR 2019-04-20 17:57:00 Yamel Diallo GRANT COORDINATOR I:[id number] HIV 1/2 AG-AB WITH REFLEX 2019-04-20 17:57:00 Yamel Diallo GRANT COORDINATOR I:[id number] CONSENT/REFUSAL FOR 2019-04-20 16:37:53 Doctor Unassigned, No GRANT COORDINATOR I:[id number] DIAGNOSIS AND TREATMENT Name ASSIGNMENT OF BENEFITS 2019-04-20 16:37:37 Doctor Unassigned, No Name POCT TEST 2018-11-01 19:45:00 Anamaria Park NPI:18 [id number] POCT URINALYSIS W/O 2018-11-01 19:45:00 Anamaria Park NPI:18 [id number] SPECIFIC GRAVITY ASSIGNMENT OF BENEFITS 2018-11-01 19:06:50 Doctor Unassigned, No Name Encounters Start End Encounter Admission Attending Care Care Encounter Source Date/Time Date/Time Type Type Clinicians Facility Department ID 2021-01-14 Emergency [facility] [id number] NPI:183 04:48:57 [id number] 1435-10-31 Emergency [facility] [id number] NPI:183 09:29:25 [id number] 6124-10-29 Emergency [facility] [id number] NPI:183 23:55:14 [id number] 4623-04-11 2021-06-24 Emergency X [facility] ERT [id number] NPI:183 16:14:00 17:33:00 MITALI [id number] 2021-06-24 2021-06-24 Emergency [facility] 1.2.840.114 [id number] NPI:183 16:14:00 17:33:00 Mitali BANKS 350.1.13.10 1 [id number] [place] 4.2.7.2.686 [place] [id number] [id number] 2020-09-11 2020-09-11 Emergency [facility] 1.2.443.888 [id number] NPI:183 20:38:00 22:54:00 Rea Banks 350.1.13.10 [id number] [place] 4.2.7.2.686 [place] [address] [id number] [id number] 2020-09-11 2020-09-11 Orders Doctor ALVAREZ 1.2.840.114 [id number] NPI:183 00:00:00 00:00:00 Only Unassigned, SHYANN 350.1.13.10 [id number] [place] [address]686 [id number] [id number] 2020-08-20 2020-08-20 Outpatient R [facility] [id number] NPI:183 10:30:00 10:30:00 [id number] 2020-08-20 2020-08-20 Outpatient R JONATHON [facility] [id number] NPI:183 10:30:00 10:30:00 CHANELL [id number] 1 2020-07-02 2020-07-02 Outpatient R [facility] [id number] NPI:183 11:00:00 11:00:00 [id number] 2020-07-02 2020-07-02 Outpatient R JONATHON, [facility] [id number] NPI:183 11:00:00 11:00:00 CHANELL [id number] 1 2020-06-29 2020-06-29 Outpatient R [facility] [id number] NPI:183 16:00:00 16:00:00 [id number] 2020-06-12 2020-06-12 Emergency [facility] 1.2.840.114 [id number] 11:05:00 11:12:00 Mitali Banks 350.1.13.10 [place] 4.2.7.2.686 [place] [id number] [id number] 2020-06-12 2020-06-12 Emergency [facility] 1.2.840.114 [id number] NPI:183 11:05:00 11:12:00 Mitali Banks 350.1.13.10 1 [id number] [place] 4.2.7.2.686 [place] [id number] [id number] 2020-06-12 2020-06-12 Orders Doctor ALVAREZ 1.2.840.114 [id number] 00:00:00 00:00:00 Only UnassignedSHYANN 350.1.13.[address] [facility] 4.2.7.2.686 [id number] 009 2020-06-12 2020-06-12 Orders Doctor KIM 1.2.840.114 [id number] NPI:183 00:00:00 00:00:00 Only UnassignedSHYANN 350.1.13.[id number] [facility] 4.2.7.2.686 [id number] 009 2020-06-05 2020-06-05 Patient Edward [facility] 1.2.840.114 [id number] 00:00:00 00:00:00 Outreach Miguel Angel CHAMORRO 350.1.13.10 [facility] 4.2.7.2.686 [place] [id number] [id number] 2020-06-05 2020-06-05 Patient [facility] 1.2.840.114 [id number] NPI:183 00:00:00 00:00:00 Outreach Miguel Angel PRIMARY 350.1.13.10 1 [id number] [facility] 4.2.7.2.686 [place] [id number] 2020-01-03 2020-01-03 Emergency [facility] 1.2.840.114 [id number] 10:20:00 11:05:00 Emily Banks 350.1.13.10 [place] 4.2.7.2.686 [place] [id number] [id number] 2020-01-03 2020-01-03 [facility] 1.2.840.114 [id number] NPI:183 10:20:00 11:05:00 Emily Banks 350.1.13.10 [id number] [place] 4.2.7.2.686 [place] [id number] 084 2020-01-03 2020-01-03 Telephone SusyLinnette 1.2.840.114 [id number] 00:00:00 00:00:00 SHYANN 350.1.13.10 [facility] 42.7.2.686 [id number] [id number] 2020-01-03 2020-01-03 Telephone Ariel Jaina Brie KIM 1.2.840.114 [id number] NPI:183 00:00:00 00:00:00 SHYANN 350.1.13.10 [id number] [facility] 4.2.7.2.686 [id number] [id number] 2019-11-04 2019-11-04 Outpatient R [facility] [id number] NPI:183 10:00:00 10:00:00 [id number] 2019-11-04 2019-11-04 Outpatient R [facility] [id number] NPI:183 10:00:00 10:00:00 [id number] 2019-08-12 2019-08-12 Nurse Visit, [facility] 12.840.114 [id number] 10:14:36 10:29:36 Visit Dante HVAC ENGINEER 350.1.13.10 Nurse REGIONAL 4.2.7.2.686 [place] [id number] & CHILD 107 [facility] 2019-08-12 2019-08-12 Nurse Visit, Dante Nurse [facility] 1.2 .840.114 [id number] NPI:183 10:14:36 10:29:36 Visit AkinYola tolentino C HVAC ENGINEER 350.1.13. [id number] [facility] 4.2.7.2.686 [place]ER[place] [id number] & CHILD 107 [facility] 2019-08-12 2019-08-12 Outpatient R [facility] [id number] NPI:183 10:00:00 10:00:00 [id number] 2019-08-12 2019-08-12 Outpatient R COLLINS [facility] [id number] NPI:183 10:00:00 10:00:00 YOLA [id number] 81 2019-08-12 2019-08-12 Telephone Collins, [facility] 1.2.840.114 [id number] 00:00:00 00:00:00 Yola C HVAC ENGINEER 350.1.13.10 [facility] 4.2.7.2.686 MATER[place] [id number] & CHILD 107 [facility] 2019-08-12 2019-08-12 Telephone Gibsonrajan [facility] 1.2.840.114 [id number] NPI:183 00:00:00 00:00:00 Yola C HVAC ENGINEER 350.1.13.[id number] [facility] 4.2.7.2.686 [place]ER[place] [id number] & CHILD 107 [facility] 2019-08-12 2019-08-12 Case Collins, [facility] 1.2.183.838 [id number] NPI:183 00:00:00 00:00:00 Management Yola C HVAC ENGINEER 350.1.13.[id number] [facility] 4.2.7.2.686 [place] [id number] & CHILD 107 [facility] 2019-08-12 2019-08-12 Case Gibsonsinaresh, [facility] 1.2.665.799 [id number] 00:00:00 00:00:00 Management Yola C HVAC ENGINEER 350.1.13.10 [facility] 4.2.7.2.686 [place] [id number] & CHILD 107 [facility] 2019-08-11 2019-08-11 [facility] 1.2.840.114 [id number] NPI:183 00:00:00 00:00:00 Yola C HVAC ENGINEER 350.1.13.[id number] [facility] 4.2.7.2.686 MATER[place] [id number] & CHILD 107 [facility] 2019-08-11 2019-08-11 [facility] 1.2.840.114 [id number] 00:00:00 00:00:00 Yola C HVAC ENGINEER 350.1.13.10 [facility] 4.2.7.2.686 [place] [id number] & CHILD 107 [facility] 2019-07-26 2019-07-26 Office [facility] 1.2.372.804 [id number] NPI:183 14:00:18 15:22:03 Visit Yola C HVAC ENGINEER 350.1.13.10 [id number] [facility] 4.2.7.2.686 [place] [id number] & CHILD 107 [facility] 2019-07-26 2019-07-26 [facility] 1.2.686.335 [id number] 14:00:18 15:22:03 Visit Yola C HVAC ENGINEER 350.1.13.10 [place] 4.2.7.2.686 [place] [id number] & CHILD 107 [facility] 2019-07-26 2019-07-26 Outpatient COLLINS, [facility] [id number] NPI:183 14:15:00 14:15:00 YOLA [id number] 2019-07-26 2019-07-26 Outpatient R COLLINS, [facility] [id number] NPI:183 14:15:00 14:15:00 YOLA [id number] 81 2019-07-13 2019-07-13 Telephone [facility] 1.2.840.114 [id number] NPI:183 00:00:00 00:00:00 Anamaria N HVAC ENGINEER 350.1.13.[id number] [facility] 4.2.7.2.686 [place] [id number] & CHILD 107 [facility] 2019-04-20 2019-04-21 [facility] Yamel Diallo [facility] 1.2.840.114 [id number] NPI:183 10:29:00 20:22:00 Encounter [facility] 350.1.13.10 [id number] [place] [address].2.7.2.686 [place] [id number] 083 2019-04-20 2019-04-20 [facility] 1.2.840.114 [id number] NPI:183 00:00:00 00:00:00 Anamaria N HVAC ENGINEER 350.1.13.[id number] [facility] 4.2.7.2.686 [place] [id number] & CHILD 107 [facility] 2019-04-19 2019-04-19 Patient Doctor [facility] 1.2.840.114 [id number] NPI:183 00:00:00 00:00:00 Secure Msg Unassigned, HVAC ENGINEER 350.1.13.10 [id number] [place] 4.2.7.2.686 [place] [id number] & CHILD 107 [facility] 2019-04-19 2019-04-19 Patient Doctor [facility] 1.2.840.114 [id number] NPI:[id number] 00:00:00 00:00:00 Secure Msg Unassigned, HVAC ENGINEER 350.1.13.10 [id number] [facility] 4.2.7.2.686 MATERNAL [phone] & CHILD 107 [facility] 2018-11-03 2018-11-03 [facility] 1.2.840.114 [id number] NPI:[id number] 00:00:00 00:00:00 Anamaria N HVAC ENGINEER 350.1.13.[id number] [facility] 4.2.7.2.686 MATERNAL [phone] & CHILD 107 [facility] 2018-11-01 2018-11-01 Initial [facility] 1.2.683.210 [id number] NPI:183 14:25:40 15:32:55 Anamaria N HVAC ENGINEER 350.1.13.[id number] [facility] 4.2.7.2.686 MATERNAL [phone] & CHILD [address] [place] [address] 2018-11-01 2018-11-01 Orders Doctor KIM 1.2.840.114 [id number] NPI:[id number] 00:00:00 00:00:00 Only Unassigned, SHYANN 350.1.13.10 [id number] [employer] [address]686 [id number] 009 2016-08-25 2016-08-25 Emergency E [facility] MED [id number] 13:00:00 13:00:00 [facility] Results Test Description Test Time Test Comments Results Result [facility] e Comments XR CHEST 1 VW 2020-08-16 No acute pulmonary NPI :[id number] disease. RL: ?[id number] 03:41:35 History: cough Ordering Physician: REA SALMON COMPARISON:None FINDINGS: Single AP view the chest is provided. The trachea is midline. The cardiomediastinal silhouette is within normal limits. ?The lungs areclear. ?The costophrenic recesses are clear. [facility], Radiant Results Inft User - 09/11/2020 10:42 PM CDT History: cough Ordering Physician: REA SALMON COMPARISON:NoneFINDING S: Single AP view the chest is provided. The trachea is midline. The cardiomediastinal silhouette is within normal limits. The lungs areclear. The costophrenic recesses are clear.IMPRESSIONNo acute pulmonary disease.RL: 3201 D-19 (ID NOW RAPID TESTING) 2020-09-12 02:28:09 Test Item Value Reference Range Interpretation Comme nts SARS-CoV-2 Rapid ID NOW (test code Not Detected Not Detected = 79134-4) OMARI (test code = OMARI) ID NOW COVID-19 Assay is an isothermal nucleic acid amplification test intended for the qualitative detection of nucleic acid from SARS-CoV-2 viral RNA in nasopharyngeal (GRANT COORDINATOR) specimens. It is used under Emergency Use Authorization (EUA) by FDA. The limit of detection (LOD) of the assay is 125 Genome Equivalents/mL. A positive result is indicative of the presence of SARS-CoV-2 RNA. ?Clinical correlation with patient history and other diagnostic information is necessary to determine patient infection status. A negative (Not Detected) result does not preclude SARS-CoV-2 infection. In patients with clinical symptoms and other tests that are consistent with SARS-CoV-2 infection, negative results should be treated as presumptive negative and a new specimen should be tested with alternative PCR molecular test. Invalid: Please collect a new specimen for repeat patient testing if clinically indicated. Lab Interpretation (test code = Normal 23093-4) NPI:[id number] 02:09:00 Test Item Value Reference Range Interpretation Comments POCT PREG (test code = 1605) negative On board controls acceptable with present C Line (test code = 3574) POCT PREG LOT # (test code = 3575) [id number] POCT PREG TEST DATE (test 03/15/2022 code = 3576) Lab Interpretation (test code = Normal 68495-6) NPI:[id number] 20:23:00 Test Item Value Reference Range Interpretation Comments POCT PREG (test code = 1605) Negative On board controls acceptable with C Yes Line (test code = 3574) POCT PREG LOT # (test code = 3575) POCT PREG TEST DATE (test code = 3576) NPI:[id number] 20:23:00 Test Item Value Reference Range Interpretation Comments POCT PREG (test code = 1605) Negative On board controls acceptable with C Yes Line (test code = 3574) POCT PREG LOT # (test code = 3575) POCT PREG TEST DATE (test code = 3576) NPI:[id number] WITH [id number] 10:36:00 Test Item Value Reference Range Interpretation Comments WBC (test code = See_Comment [Automated 6690-2) message] The sy stem which generated this result transmitted reference range : 4.30 - 11.10 10*3/?L. The reference range was not used to interpret this result as normal/abnormal . RBC (test code = See_Comment L [Automated 789-8) message] The sy stem which generated this result transmitted reference range : 3.93 - 5.25 10*6/?L. The reference range was not used to interpret this result as normal/abnormal . HGB (test code = 10.5 g/dL 11.6-15 L 718-7) HCT (test code = 32.6 % 35.7-45.2 L 4544-3) MCV (test code = 95.6 fL 80.6-95.5 H 787-2) MCH (test code = 30.8 pg 25.9-32.8 785-6) MCHC (test code = 32.2 g/dL 31.6-35.1 786-4) RDW-SD (test code = 42.5 fL 39-49.9 49271-5) RDW-CV (test code = 12.1 % 12-15.5 788-0) PLT (test code = See_Comment L [Automated 777-3) message] The sy stem which generated this result transmitted reference range : 166 - 358 10*3/ ?L. The reference r hugo was not used to interpret this result as normal/abnormal . MPV (test code = 10.4 fL 9.5-12.9 08259-3) NRBC/100 WBC (test See_Comment [Automat ed code = 7774181484) message] The system which generated this result transmitted reference range : 0.0 - 10.0 /100 WBCs. The refer ence range was not u sed to interpret th is result as normal/abnormal . NRBC x10^3 (test code <0.01 See_Comment [Auto mated = 5258232918) message] The s ystem which generated this result transmitted reference range : 10*3/?L. The reference range was not used to interpret this result as normal/abnormal . GRAN MAT (NEUT) % 64.8 % (test code = 770-8) IMM GRAN % (test code 0.80 % = 5661567645) LYMPH % (test code = 22.6 % 736-9) MONO % (test code = 10.4 % 5905-5) EOS % (test code = 1.1 % 713-8) BASO % (test code = 0.3 % 706-2) GRAN MAT x10^3(ANC) 7.01 10*3/uL 1.88-7.09 (test code = 9727725783) IMM GRAN x10^3 (test 0.09 10*3/uL 0-0.06 H code = 0942793389) LYMPH x10^3 (test code 2.45 10*3/uL 1.32-3.29 = 731-0) MONO x10^3 (test code 1.12 10*3/uL 0.33-0.92 H = 742-7) EOS x10^3 (test code = 0.12 10*3/uL 0.03-0.39 711-2) BASO x10^3 (test code 0.03 10*3/uL 0.01-0.07 = 704-7) Lab Interpretation Abnormal (test code = 32724-4) NPI:[id number] (D) IMMUNE [id number] 03:46:32 Test Item Value Reference Range Interpretation Comments RHIG CANDIDATE? No- see comment Patient i s not a (test code = candidate for R hIg- 5055) Patient is Rh Positive.Perfor med at [facility] Laboratory Services - [employer] Blood [address] [place], [place] [id number] Free: [phone] A No. [id number] NPI:[id number] OR IVETH ONLY - [id number] 01:33:00 Test Item Value Reference Range Interpretation Comments RPR (Qualitative) (test code = Nonreactive Nonreactive 26855-5) Lab Interpretation (test code = Normal 79369-0) NPI:[id number] Cord [id number] 23:57:00 Test Item Value Reference Range Interpretation Comments VENOUS BASE EXCESS, mEq/L CORD (test code = 6483270408) VENOUS PH, CORD (test 7.25-7.45 code = 8491307376) VENOUS PC02, CORD See_Comment [Automate d message] The (test code = system which ge nerated 7181256906) this result tra nsmitted reference range : 27 - 49 mmHg. The refer ence range was not used to interpret this result as normal/abnormal . VENOUS PO2, CORD (test See_Comment [Aut omated message] The code = 3361786481) system [facility] generated this result tra nsmitted reference range : 17 - 41 mmHg. The refer ence range was not used to interpret this result as normal/abnormal . VENOUS BICARBONATE, See_Comment [Automa sue message] The CORD (test code = system whi ch generated 5849004493) this result tra nsmitted reference range : 12 - 29 mEq/L. The refe rence range was not used to interpret this result as normal/abnormal . NPI:[id number] B Surface [id number] 21:34:00 Test Item Value Reference Range Interpretation Comments HBsAg Semi-Quantitative (test code = Negative Negative 5195-3) NPI:[id number] 1/2 AG-AB WITH [id number] 19:45:00 Test Item Value Reference Range Interpretation Comments HIV Negative Negative Semi-quantitative (test code = 23655-2) OMARI (test code = Non-reactive for HIV-1 OMARI) antigen and HIV-1/HIV-2 antibodies. ?No laboratory evidence of HIV infection. ?Repeat in 2-4 weeks if acute HIV infection is suspected. NPI:[id number] and Screen - ONCE [id number] 18:48:31 Test Item Value Reference Range Interpretation Comments ABO & RH (test code O Positive Performe d at [facility] = 20) Laboratory [facility] Blood [address] [place], [place] [address]Toll Free: [phone] A No. [id number] IAT (test code = Negative Performed a t [facility] 1185) Laboratory [facility] Blood [facility] [place], [place] [id number] Free: [phone] A No. [id number] NPI:[id number] WITH [id number] 18:12:00 Test Item Value Reference Range Interpretation Comments WBC (test code = See_Comment [Automated 2390-2) message] The sy stem which generated this result transmitted reference range : 4.30 - 11.10 10*3/?L. The reference range was not used to interpret this result as normal/abnormal . RBC (test code = See_Comment L [Automated 789-8) message] The sy stem which generated this result transmitted reference range : 3.93 - 5.25 10*6/?L. The reference range was not used to interpret this result as normal/abnormal . HGB (test code = 11.1 g/dL 11.6-15 L 718-7) HCT (test code = 34.9 % 35.7-45.2 L 4544-3) MCV (test code = 95.9 fL 80.6-95.5 H 787-2) MCH (test code = 30.5 pg 25.9-32.8 785-6) MCHC (test code = 31.8 g/dL 31.6-35.1 786-4) RDW-SD (test code = 43.8 fL 39-49.9 45849-2) RDW-CV (test code = 12.4 % 12-15.5 788-0) PLT (test code = See_Comment L [Automated 777-3) message] The sy stem which generated this result transmitted reference range : 166 - 358 10*3/ ?L. The reference r hugo was not used to interpret this result as normal/abnormal . MPV (test code = 10.2 fL 9.5-12.9 77468-9) NRBC/100 WBC (test See_Comment [Automat ed code = 5084260156) message] The system which generated this result transmitted reference range : 0.0 - 10.0 /100 WBCs. The refer ence range was not u sed to interpret th is result as normal/abnormal . NRBC x10^3 (test code <0.01 See_Comment [Auto mated = 0122566915) message] The s ystem which generated this result transmitted reference range : 10*3/?L. The reference range was not used to interpret this result as normal/abnormal . GRAN MAT (NEUT) % 65.8 % (test code = 770-8) IMM GRAN % (test code 1.00 % = 5425578457) LYMPH % (test code = 22.2 % 736-9) MONO % (test code = 9.6 % 5905-5) EOS % (test code = 1.1 % 713-8) BASO % (test code = 0.3 % 706-2) GRAN MAT x10^3(ANC) 4.13 10*3/uL 1.88-7.09 (test code = 9708204829) IMM GRAN x10^3 (test 0.06 10*3/uL 0-0.06 code = 2892387370) LYMPH x10^3 (test code 1.39 10*3/uL 1.32-3.29 = 731-0) MONO x10^3 (test code 0.60 10*3/uL 0.33-0.92 = 742-7) EOS x10^3 (test code = 0.07 10*3/uL 0.03-0.39 711-2) BASO x10^3 (test code <0.03 0.01-0.07 = 704-7) Lab Interpretation Abnormal (test code = 57412-7) NPI:[id number] 19:45:00 Test Item Value Reference Range Interpretation Comments POCT PREG (test code = 1605) Positive On board controls acceptable with C Yes Line (test code = 3574) POCT PREG LOT # (test code = 3575) POCT PREG TEST DATE (test code = 3576) NPI:[id number] URINALYSIS W/O SPECIFIC [id number] 19:45:00 Test Item Value Reference Range Interpretation Comments POCT PH U (test code = 3254) 7 mg/dl 5-8 POCT U LEUK EST (test code = 1+ Negative - Negative 3) POCT U NIT (test code = 3262) neg Negative - Negative POCT U PROT (test code = 3259) trace Negative - Negative POCT U GLU (test code = 3256) neg Negative - Negative POCT U KETONE (test code = 3258) 2+ Negative - Negative POCT U BLD (test code = 3257) neg Negative - Negative NPI:[id number] W/AUTO [id number] 20:53:00 Test Item Value Reference Range Interpretation Comments WHITE BLOOD CELL (test code = 8.7 x10 3/uL 3.2-11.5 N WBC) RED BLOOD CELL (test code = 3.80 x10(6)/m 3.70-5.10 N RBC) HEMOGLOBIN (test code = HGB) 11.8 g/dL 12.0-15.0 L HEMATOCRIT (test code = HCT) 34.7 % 35.7-44.8 L MEAN CELL VOLUME (test code = 91 fL 80-100 N MCV) MEAN CELL HGB (test code = MCH) 31.2 pg 26.2-33.8 N MEAN CELL HGB CONCENTRATION 34.1 g/dL 30.0-34.0 H (test code = MCHC) RED CELL DISTRIBUTION WIDTH 14.6 % 11.3-14.5 H (test code = RDW) PLATELET COUNT (test code = 194 x10 3/uL 130-408 N PLT) MEAN PLATELET VOLUME (test code 7.9 fl 6.4-10.5 N = MPV) NEUTROPHIL % (test code = NT%) 61.2 [...] 0.0 x10 3/uL 0.0-0.1 N BASIC METABOLIC [id number] 20:11:00 Test Item Value Reference Range Interpretation [...] mg/dL 8.5-10.5 N = CA) LIVER FUNCTION [id number] 20:11:00 Test Item Value Reference Range Interpretation [...] code = 46 U/L 42-121 N ALKP) [id number] 20:11:00 Test Item Value Reference Range Interpretation Comments ALCOHOL (test code = 6 mg/dl Interpr etive Data:il: ALC) Ethanol Level To convert into le gal units, divide result b y 1,000 DRUGS OF ABUSE SCREEN [id number] 19:58:00 Test Item Value Reference Range Interpretation Comments UR COCAINE (test code NEGATIVE NEGATIVE This i s a toxicology = COCAU) qualitative scr eening test only. Ifconfirmatory testing is desired please request drug screenconf irmation. These results a re unconfirmed and should beused only for medical purposes. Cut-o ff concentration f or Cocaine is 300 ng/mLRec ommended screening cut-o ff concentrations by [facility] use and [facility]. UR CANABINOIDS (test POSITIVE NEGATIVE A This is a toxicology code = CANU) qualitative scr eening test only. Ifconfirmatory testing is desired please request drug screenconf irmation. These results a re unconfirmed and should beused only for medical purposes. Cut-o ff concentration f or THC is 50 ng/mLRecomme nded screening cut[facility] and [facility]. UR AMPHETAMINE (test POSITIVE NEGATIVE A [...] ng/mLRecommende d screening cut-o ff concentrations by [facility]. UR BARBITURATE (test NEGATIVE NEGATIVE This is a toxicology code = BARBQLU) qualitative screening test only. Ifconfirmatory testing is desired please request drug screenconf irmation. These results a re unconfirmed and should beused only for medical purposes. Cut-o ff concentration f or Barbiturates is 200 ng/mLRecommende d screening cut-o ff concentrations by [facility]. UR BENZODIAZEPINE NEGATIVE NEGATIVE This is a toxicology (test code = BENZU) qualitat macho screening test only. Ifconfirmatory testing is desired please request drug screenconf irmation. These results a re unconfirmed and should beused only for medical purposes. Cut-o ff concentration f or Benzodiazepines is 200 ng/mLRecommende d screening cut-o ff concentrations by [facility] and [facility]. UR OPIATES QUAL (test NEGATIVE NEGATIVE This i s a toxicology code = OPIAQLU) qualitative screening test only. Ifconfirmatory testing is desired please request drug screenconf irmation. These results a re unconfirmed and should beused only for medical purposes. Cut-o ff concentration f or Opiates is 300 ng/mLRec ommended screening cut-o ff concentrations by [facility] Ab use and [facility]. UR PHENCYCLIDINE NEGATIVE NEGATIVE This is a t oxicology (PCP) (test code = qualitati ve screening PHENCU) test only. Ifconfirmatory testing is desired please request drug screenconf irmation. These results a re unconfirmed and should beused only for medical purposes. Cut-o ff concentration f or PCP is 25 ng/mLRecomme nded screening cut-o ff concentrations by [facility] Ab use [facility]. HCG SERUM [id number] 19:53:00 Test Item Value Reference Range Interpretation Comments HCG SERUM QUAL POSITIVE NEGATIVE This is a makayla litative (test code = HCGQL) screenin g test.The quantitative Bh cg may be helpful.Weakly positive results should be repeated in 48 hours. URINALYSIS [id number] 19:50:00 Test Item Value Reference Range Interpretation [...]
[2021-07-19 16:53] LABS: Urine Blood 3+ (Negative); Urine Glucose Negative (Negative); Urine Protein 1+ (Negative); Urine Specific Gravity 1.015 (1.005-1.030); Urine pH 7.5 (5.0-7.0)
[2021-07-19 17:38] LABS: Absolute Lymphocytes (CBC) 2.1 K/uL (0.7-4.9); Hematocrit 33.9 % (36.0-45.0); Lymphocytes % 23.5 % (15.3-44.8); MPV 8.6 fL (7.6-11.3); RBC Red Blood Cell Count 3.89 M/uL (3.86-4.86)
[2021-07-19 17:45] LABS: Urine Specific Gravity/Preg 1.015 (1.005-1.030)
[2021-07-19 17:45] LABS: BUN Blood Urea Nitrogen 8 mg/dL (7-18); Bicarbonate 22 mmol/L (21-32); Glucose Level 89 mg/dL (74-106); Potassium 3.9 mmol/L (3.5-5.1); Sodium Level 137 mmol/L (136-145)
[2021-07-19 18:04] LABS: HCG, Quantitative 1068 mIU/mL (1-3)
--- NOTE | 2021-07-19 18:46 | ER ---
Nurse's Notes 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 Patient believes she is 8-12 weeks . Coronavirus screen: Client denies travel out of the [place] in the last 14 days. Ebola Screen: Patient denies travel to an Ebola-affected area in the 21 days before illness onset. Initial Sepsis Screen: Does the patient meet any 2 criteria? No. Patient's initial sepsis screen is negative. Does the patient have a suspected source of infection? No. Patient's initial sepsis screen is negative. Risk Assessment: Do you want to hurt yourself or someone else? Patient reports no desire to harm self or others. Onset of symptoms was July 19, 2021. 16:27 Method Of Arrival: EMS: [facility] 16:27 Acuity: CORI 3 ww Triage Assessment: 16:28 General: Appears in no apparent distress. Behavior is calm, cooperative. Pain: Denies ww pain. Neuro: Level of Consciousness is awake, alert, obeys commands, Oriented to person, place, time, situation, Moves all extremities. Gait is steady, Speech is normal. Cardiovascular: Capillary refill < 3 seconds Patient's skin is warm and dry. Chest pain is denied. Respiratory: Airway is patent Respiratory effort is even, unlabored, Respiratory pattern is regular, symmetrical. GI: Abdomen is non-distended, Reports cramping. : Reports vaginal bleeding that is. Derm: No signs and/or symptoms reported regarding the dermatologic system. Skin is intact, is healthy with good turgor. 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 - Social history:: Smoking status: Patient reports the use of cigarette tobacco products, smokes one-half pack cigarettes per day. Screenin:30 Abuse screen: Denies threats or abuse. Denies injuries from another. Nutritional ww screening: No deficits noted. Tuberculosis screening: No symptoms or risk factors identified. Fall Risk None identified. Assessment: 16:30 Obstetrical Assessment: General assessment: awake and alert, skin warm and dry, ww respirations even and unlabored, Patient reports abdominal cramping. Reassessment: Patient appears in no apparent distress at this time. No changes from previously documented assessment. Patient and/or family updated on plan of care and expected duration. Pain level reassessed. see triage assessment. 17:26 Reassessment: Patient appears in no apparent distress at this time. No changes from ww previously documented assessment. Patient and/or family updated on plan of care and expected duration. Pain level reassessed. Patient is alert, oriented x 3, equal unlabored respirations, skin warm/dry/pink. 18:51 Reassessment: Patient appears in no apparent distress at this time. No changes from ww previously documented assessment. Patient and/or family updated on plan of care and expected duration. Pain level reassessed. Patient is alert, oriented x 3, equal unlabored respirations, skin warm/dry/pink. Vital Signs: 16:27 BP 131 / 83; Pulse 101; Resp 18; Temp 98.4; Pulse Ox 98% on R/A; Weight 113.4 kg; ww Height 5 ft. 8 in. (172.72 cm); Pain 0/10; 17:45 BP 120 / 50; Pulse 73; Resp 19; Pulse Ox 97% ; ww 16:27 Body Mass Index 38.01 (113.40 kg, 172.72 cm) ww ED Course: 16:26 Patient arrived in ED. ww 16:28 Triage completed. ww 16:28 Arm band placed on. ww 16:29 Vivian Flanagan MD is Attending Physician. sp3 16:30 Patient has correct armband on for positive identification. Bed in low position. Call ww light in reach. Side rails up X 1. Pulse ox on. NIBP on. 16:31 Mercy Colbert RN is Primary Nurse. ww 17:21 Inserted saline lock: 20 gauge in left antecubital area, using aseptic technique. Blood ww collected. 18:45 Eugenia Navas MD is Referral Physician. sp3 18:51 Transvaginal OB In Process Unspecified. EDMS 18:51 OB Limited In Process Unspecified. EDMS 18:51 No provider procedures requiring assistance completed. IV discontinued, bleeding ww controlled, No redness/swelling at site. Pressure dressing applied. Administered Medications: No medications were administered Outcome: 18:45 Discharge ordered by . sp3 18:52 Discharged to home ambulatory, with family. ww 18:52 Condition: stable 18:52 Discharge instructions given to patient, family, Instructed on discharge instructions, follow up and referral plans. medication usage, safe sex practices, safety practices, Demonstrated understanding of instructions, follow-up care. 18:59 Patient left the ED. ww Signatures: Dispatcher [employer] Vivian Malloy MD MD sp3 Mercy Colbert, RN RN ww
--- NOTE | 2021-07-19 18:46 | EDPHYS ---
Physician Documentation [facility] Name: Tenzin Snider Age: 25 yrs Sex: Female : 1995 Arrival Date: 07/19/2021 Time: 16:26 Bed 18 Private MD: ED Physician Vivian Flanagan HPI: 07/19 16:39 This 25 yrs old Black Female presents to ER via EMS with complaints of Vaginal sp3 Bleeding, + Preg <12wks. 16:39 25-year-old female G4, P3, A0 states she is with LMP 05/13/2021 presents to the sp3 ED with vaginal cramping and mild vaginal bleeding. Patient has not yet had the opportunity to seek medical care and is in line at the center. She denies back pain, syncope, fever dizziness, near syncope, other ROS symptoms at this time. Cramping and bleeding started early this morning and has not subsided therefore she elected to come in.. 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 - Social history:: Smoking status: Patient reports the use of cigarette tobacco products, smokes one-half pack cigarettes per day. ROS: 16:41 Constitutional: Negative for fever, chills, and weight loss, Eyes: Negative for injury, sp3 pain, redness, and discharge, ENT: Negative for injury, pain, and discharge, Neck: Negative for injury, pain, and swelling, Cardiovascular: Negative for chest pain, palpitations, and edema, Respiratory: Negative for shortness of breath, cough, wheezing, and pleuritic chest pain, Back: Negative for injury and pain, Skin: Negative for injury, rash, and discoloration, Neuro: Negative for headache, weakness, numbness, tingling, and seizure, Psych: Negative for depression, anxiety, suicide ideation, homicidal ideation, and hallucinations, Allergy/Immunology: Negative for hives, rash, and allergies, Endocrine: Negative for neck swelling, polydipsia, polyuria, polyphagia, and marked weight changes. 16:41 All other systems are negative. Exam: 16:41 Constitutional: This is a well developed, well nourished patient who is awake, alert, sp3 and in no acute distress. Head/Face: Normocephalic, atraumatic. Eyes: Pupils equal round and reactive to light, extra-ocular motions intact. Lids and lashes normal. Conjunctiva and sclera are non-icteric and not injected. Cornea within normal limits. Periorbital areas with no swelling, redness, or edema. Neck: Trachea midline, no thyromegaly or masses palpated, and no cervical lymphadenopathy. Supple, full range of motion without nuchal rigidity, or vertebral point tenderness. No Meningismus. Chest/axilla: Normal chest wall appearance and motion. Nontender with no deformity. No lesions are appreciated. Cardiovascular: Regular rate and rhythm with a normal S1 and S2. No gallops, murmurs, or rubs. Normal PMI, no JVD. No pulse deficits. Respiratory: Lungs have equal breath sounds bilaterally, clear to auscultation and percussion. No rales, rhonchi or wheezes noted. No increased work of breathing, no retractions or nasal flaring. Abdomen/GI: Soft, non-tender, with normal bowel sounds. No distension or tympany. No guarding or rebound. No evidence of tenderness throughout. Back: No spinal tenderness. No costovertebral tenderness. Full range of motion. Skin: Warm, dry with normal turgor. Normal color with no rashes, no lesions, and no evidence of cellulitis. MS/ Extremity: Pulses equal, no cyanosis. Neurovascular intact. Full, normal range of motion. Neuro: Awake and alert, GCS 15, oriented to person, place, time, and situation. Cranial nerves II-XII grossly intact. Motor strength 5/5 in all extremities. Sensory grossly intact. Cerebellar exam normal. Normal gait. Psych: Awake, alert, with orientation to person, place and time. Behavior, mood, and affect are within normal limits. 16:41 : Mild bleeding noted. Internal exam deferred until ultrasound is reviewed.. Vital Signs: 16:27 BP 131 / 83; Pulse 101; Resp 18; Temp 98.4; Pulse Ox 98% on R/A; Weight 113.4 kg; ww Height 5 ft. 8 in. (172.72 cm); Pain 0/10; 17:45 BP 120 / 50; Pulse 73; Resp 19; Pulse Ox 97% ; ww 16:27 Body Mass Index 38.01 (113.40 kg, 172.72 cm) ww MDM: 16:30 Patient medically screened. sp3 16:42 Data reviewed: vital signs, nurses notes. ED course: Will obtain urine test sp3 first and if positive will obtain full work-up including ultrasound and laboratory values. Patient is hemodynamically stable with a pulse of 100 which is coming down into the 90s on my evaluation.. 18:43 ED course: Values reviewed. Patient is positive Rh on blood type. Hemoglobin is sp3 slightly low the patient has no symptoms from it. Bleeding has virtually stopped. Discussed with clinical dietetic technician who sees gestational sac but no pole. She is 9 weeks by dates and only 1000 on beta-hCG. We will need to trend her hCG and diagnosis will be made of threatened AB versus AB in progress. Patient does not have obstructive scare and we will refer her to one of our physicians as well as her existing clinic resources which she will attempt to utilize. All questions of been answered the patient will be discharged home at this time. Also bilateral adnexa looked without swelling and had good arterial flow. No indications or findings are consistent with tubal .. 07/19 16:53 Order name: Urine Dipstick-Ancillary; Complete Time: 17:36 EDWA 07/19 16:56 Order name: Abo/rh Typing; Complete Time: 18:18 sp3 07/19 16:56 Order name: Basic Metabolic Panel; Complete Time: 18:24 sp3 07/19 16:56 Order name: CBC with Diff; Complete Time: 17:48 sp3 07/19 16:56 Order name: Quantitative Hcg; Complete Time: 18:24 sp3 07/19 16:29 Order name: Urine Test (obtain specimen); Complete Time: 16:55 sp3 07/19 16:56 Order name: IV Saline Lock; Complete Time: 17:21 sp3 07/19 16:56 Order name: Labs collected and sent; Complete Time: 17:21 sp3 07/19 16:56 Order name: NPO; Complete Time: 16:57 sp3 07/19 17:38 Order name: Urine --Ancillary (enter results); Complete Time: 17:48 kj1 07/19 18:40 Order name: Transvaginal OB EDWA 07/19 18:41 Order name: OB Limited EDWA 07/19 16:56 Order name: Urine Dipstick-Ancillary (obtain specimen); Complete Time: 16:57 sp3 Administered Medications: No medications were administered Disposition Summary: 07/19/21 18:45 Discharge Ordered Location: Home sp3 Condition: Stable sp3 Diagnosis - Threatened sp3 Followup: sp3 - With: Eugenia Navas MD - When: Upon discharge from the Emergency Department - Reason: Further diagnostic work-up, Recheck today's complaints, Repeat Beta-HCG (48 Hours) Discharge Instructions: - Discharge Summary Sheet sp3 - Threatened Miscarriage sp3 - Vaginal Bleeding During , First Trimester sp3 Forms: - Medication Reconciliation Form sp3 - Thank You Letter sp3 - Antibiotic Education sp3 - Prescription Opioid Use sp3 Signatures: Dispatcher [employer] EDMS Vivian Flanagan MD MD sp3 Mercy Colbert RN RN ww Corrections: (The following items were deleted from the chart) 17:48 16:59 URINE --ANCILLARY+UC.LAB.BRZ ordered. EDMS EDMS 17:48 17:36 URINE --ANCILLARY+UC.LAB.BRZ reviewed. sp3 EDMS 18:41 16:57 1st Trimest Single 1st Fetus+US.RAD.BRZ ordered. EDMS EDMS 18:46 18:43 ED course: Values reviewed. Patient is positive Rh on blood type. Hemoglobin is sp3 slightly low the patient has no symptoms from it. Bleeding has virtually stopped. Discussed with clinical dietetic technician who sees gestational sac but no pole. She is 9 weeks by dates and only 1000 on beta-hCG. We will need to trend her hCG and diagnosis will be made of threatened AB versus AB in progress. Patient does not have obstructive scare and we will refer her to one of our physicians as well as her existing clinic resources which she will attempt to utilize. All questions of been answered the patient will be discharged home at this time.. sp3
--- NOTE | 2021-07-19 19:05 | RAD REPORT ---
EXAM DESCRIPTION: US - Transvaginal OB - 07/19/2021 6:50 pm CLINICAL HISTORY: with vaginal bleeding COMPARISON: None. FINDINGS: The uterus measures 9 x 5 x 5 centimeters. A round fluid collection is present within the endometrium measuring 5 millimeters. Presumably this represents a gestational sac. pole is not seen. Yolk sac not visualized Ovaries are normal in size and echotexture.. The right and left adnexa unremarkable No significant free fluid IMPRESSION: These findings may indicate an early viable intrauterine in which a pole is not yet seen. Other considerations include an incomplete and pseudo gestational sac asso ciated with an ectopic This all should be correlated clinically and with serial beta HCG levels. Followup endovaginal sonogr am in 1 week recommended
[2021-07-19 20:48] VITALS: TEMP 98.4
[2021-07-19 20:49] VITALS: BP 120/50; O2SAT 97
--- NOTE | 2021-07-22 10:01 | RAD REPORT ---
EXAM DESCRIPTION: US - OB Limited - 07/19/2021 6:50 pm CLINICAL HISTORY: with vaginal bleeding COMPARISON: None. FINDINGS: The uterus measures 9 x 5 x 5 centimeters. A round fluid collection is present within the endometrium measuring 5 millimeters. Presumably this represents a gestational sac. pole is not seen. Yolk sac not visualized Ovaries are normal in size and echotexture.. The right and left adnexa unremarkable No significant free fluid IMPRESSION: These findings may indicate an early viable intrauterine in which a pole is not yet seen. Other considerations include an incomplete and pseudo gestational sac asso ciated with an ectopic This all should be correlated clinically and with serial beta HCG levels. Followup endovaginal sonogr am in 1 week recommended
== END 2021-07-19 18:59 | disposition home or self-care (01) ==
LOC: ER 16:24
DX: O20.0 Threatened abortion (principal); O99.341 Other mental disorders complicating pregnancy, first trimester; F20.9 Schizophrenia, unspecified; O99.331 Smoking (tobacco) complicating pregnancy, first trimester; F17.210 Nicotine dependence, cigarettes, uncomplicated; Z3A.00 Weeks of gestation of pregnancy not specified
CPT/HCPCS: 36415; 76815; 76817; 80048; 81003; 81025; 84702; 85025; 86900; 86901; 99284

== ENCOUNTER 2021-07-25 14:23 | Emergency (ER) | payer OTHER ==
--- OUTSIDE RECORDS SUMMARY | 2021-07-25 14:29 | XMS REPORT | Continuity of Care Document ---
:1995 Author Organization [facility] t Address [address] [place] [address] Care Team Providers Name Role Phone UNKNOWN Primary Care Physician Unavailable CASTILLO, S Attending Clinician Unavailable Ancelmo PAC, S Attending Clinician MOLLY Attending Clinician Unavailable Molly RICKETTS Attending Clinician Claire BARDALES, G Attending Clinician Doctor Unassigned, Name Attending Clinician Unavailable JONATHON Attending Clinician Unavailable Tomasz Leon DO Attending Clinician Jad Park DO Attending Clinician Susy BETANCOURT M Attending Clinician Unavailable Visit, Nurse Attending Clinician Unavailable Renetta Hwang Attending Clinician Renetta GUADALUPE Attending Clinician Unavailable Zulay RICKETTS, N Attending Clinician Amado Diallo MD Attending Clinician Amado Diallo MD Admitting Clinician Payers Payer Name Policy Type Policy Number Effective Date Expiration Date Ivana ruiz [facility] [id number] 2017 00:00:00 PLUS Advance Directives Directive Decision Effective Termination Comments Source Date Date Healthcare Agents on N/A [facility] ersity [facility] Agent Medical RelationshipCommunicationGloria [place] [facility] [facility] Care [phone] (Mobile) [email or web address] Condition Condition Condition Status Onset Resolution Last Treating Co mments Source Name Details Category Date Date Treatment Clinician Date Other Other Disease Active Univers general general 5-12 it[place] of counseling [place] and advice and advice 00 Me dical for for [place] contracept contracept 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 Liveborn Liveborn Disease Active Unive rs , of infant, of 2-05 [place] y of [place] , [place] born in born in [facility] by vaginal by vaginal delivery delivery Marijuana Marijuana Disease Active Uni vers use use 8-19 ity of 00:00: [place] 00 [facility] High risk High risk Disease Active Uni vers , , 8-19 [place] of antepartum ante[place] [facility] Multiparit Multiparit Disease Active U nivers y y 8-19 ity of 00:00: [place] [facility] Tobacco Tobacco Disease Active 2019 Univers smoking smoking 8-19 [place] of affecting [place] , [place]ical antepartum antepartum Br anch Marijuana Marijuana Disease Active Uni vers use use 8-19 ity of 00:00: [place] [facility] BMI BMI Disease Active 2017-03 Univers 29.0-29.9, 29.0-29.9, 2-20 it y of adult adult 00:00: [place] [facility] BMI BMI Disease Active 2017-03 Univers 25.0-25.9, 25.0-25.9, 2-20 it y of adult adult 00:00: [place] [facility] Exposure Exposure Disease Active Unive rs to STD to STD 1-21 ity of 00:00: [place] 00 [facility] Bipolar Bipolar Disease Active 2012-03 Univers disorder disorder - ity of 00:00: [place] 00 [facility] Attention Attention Disease Active 2012-03 Overview: Univers deficit deficit 2- Formattin ity o f hyperactiv hyperactiv 00:00: g of this [place] ity ity 00 note Medical disorder disorder might be Bran ch (ADHD) (ADHD) different from the original. ICD10 Diagnosis Term [employer] Utility Allergies, Adverse Reactions, Alerts Allergy Allergy Status Severity Reaction(s) Onset Inactive Treating Comm ents Source Name Type Date Date Clinician NO KNOWN Drug Active Univers ALLERGIE Class ity of S [facility] Social History Social Habit Start Date Stop Date Quantity Comments Source ASSERTION 2018-07-28 University of 00:00:[address] [facility] History of Cigarette Smoker Universi ty of tobacco use [facility] Exposure to 2021-07-12 2021-07-22 Not sure University SARS-CoV-2 00:00:00 21:25:00 [facility] (event) [place] Alcohol intake 2021-06-24 2021-06-24 Current drinker Unive rsity of 00:00:00 00:00:00 of alcohol [facility] (finding) [place] Tobacco use and 2018-06-03 2018-06-03 Never used Universit y of exposure 00:00:00 00:00:[address] [facility] Tobacco Comment 2018-06-03 2018-06-03 smokes 3 Universit y of 00:00:00 00:00:00 cigarettes per [facility] day. Branch Sex Ass[birth year] Universit y of 00:00:00 00:00:[address] [facility] Smoking Status Start Date Stop Date Source Current every day smoker 2018-06-03 00:00:[address] [facility] Medications Ordered Filled Start Stop Current Ordering Indication Dosage Frequency Signature Comments Components Source Medication Medication Date Date Medication? Clinician (SIG) Name Name HYDROcodone 2021- No 1{tbl} 1 tablet, Univers -acetaminop 06-24 Oral, ONCE i ty of hen (NORCO) 23:15: 22:21 NOW, 1 [place] as 10-325 mg 00 :00 dose, On Medica l tablet 1 Mon Branch tablet 06/24/21 at 1815, SONI ketorolac 2021- No 60mg 60 mg, Unive rs (TORADOL) 06-24 Intramuscu ity of injection 23:15: 22:22 lar, ONCE, [place] 60 mg 00 :00 1 dose, On Medical Mon Branch 06/24/21 at 1815, SONI amoxicillin 2021- No 1{tbl} 1 tablet, Univers -clavulanat 06-24 Oral, ONCE i ty of e 23:15: 22:20 NOW, 1 [place] (AUGMENTIN) 00 :00 dose, On Medi parish 875-125 mg Mon Branch per tablet 06/24/21 at 1 tablet 181, SONI
Re ason for Anti-Infec tive: Documented Infection< br>Documen sue Infection Site: HEENT
D uration of Therapy: 7 days amoxicillin 2021- Yes [id number] 1{tbl} Take 1 Univers -clavulanat 06-24 tablet by it y of e 875-125 00:00: 04:59 mouth 2 [place] mg per 00 :00 (two) Medical tablet times Branch daily for 14 days. acetaminoph 2021- Yes [id number] 1{tbl} Take 1 U nivers en-codeine 06-24 tablet by ity of 300-30 mg 00:00: 04:59 mouth [place] tablet 00 :00 every 6 Medical (six) Branch hours as needed for Pain (scale 7-10) for up to 7 days. Indication s: acute pain predniSONE 2020- No 40mg 40 mg, Univ ers (DELTASONE) 09-12 0630 Oral, ity of tablet 40 03:45: 02:57 ONCE, 1 [place] mg 00 :00 dose, Tu Medical 09/11/20 at Branch 2245, Routine ipratropium 2020- No 3mL 3 mL, Univ ers -albuteroL 09-12 0630 Inhalation it y of (DUONEB) 03:45: 03:00 , ONCE, 1 [place] as 0.5 mg-3 00 :00 dose, Tue Medica l mg(2.5 mg 09/11/20 at Bran ch base)/3 mL 2245, nebulizer Routine solution 3 mL benzonatate 2020-0 Yes [id number] 100mg Take 1 Univers 100 mg 6-29 capsule by ity of capsule 00:00: mouth 3 (three) Medical times Branch daily as needed for Cough. albuterol 2020-0 Yes [id number] 2{puff} Inhale 2 Univers 90 6-29 Puffs ity of mcg/actuati 00:00: every 4 [place] as on inhaler 00 (four) Medical hours as Branch needed for Wheezing or Shortness of Breath. methylPREDN 2020-0 Yes [id number] Take by Univers ISolone 4 6-29 mouth ity of mg tablets 00:00: [place]-INSTRU [place] 00 CTIONS. Medical follow Branch package directions benzonatate 2020-0 Yes [id number] 100mg Take 1 Univers 100 mg 6-29 capsule by ity of capsule 00:00: mouth 3 (three) Medical times Branch daily as needed for Cough. albuterol 2020-0 Yes [id number] 2{puff} Inhale 2 Univers 90 6-29 Puffs ity of mcg/actuati 00:00: every 4 [place] on inhaler 00 (four) Medical hours as Branch needed for Wheezing or Shortness of Breath. methylPREDN 2020-0 Yes [id number] Take by Univers ISolone 4 6-29 mouth ity of mg tablets 00:00: SEE-INSTRU [place] CTIONS. Medical follow Branch package directions benzonatate 2020-0 Yes [id number] 100mg Take 1 Univers 100 mg 6-29 capsule by ity of capsule 00:00: mouth 3 (three) Medical times Branch daily as needed for Cough. albuterol 2020-0 Yes [id number] 2{puff} Inhale 2 Univers 90 6-29 Puffs ity of mcg/actuati 00:00: every 4 [place] as on inhaler 00 (four) Medical hours as Branch needed for Wheezing or Shortness of Breath. methylPREDN 2020-0 Yes [id number] Take by Univers ISolone 4 6-29 mouth ity of mg tablets 00:00: SEE-INSTRU [place] 00 CTIONS. Medical follow Branch package directions predniSONE 2020-1 2020- No [id number] 50mg Take 5 Univers 10 mg 0-20 10-26 tablets by ity of tablet 00:00: 04:59 mouth [place] 00 :00 daily for Medical 5 days. Branch predniSONE 2019-03- No [id number] 50mg Take 5 Univers 10 mg 0-20 10-26 tablets by ity of tablet 00:00: 04:59 mouth [place] 00 :00 daily for Medical 5 days. Branch medroxyPROG 2020- No 150mg Univ ers ESTERone 08-11 ity of (DEPO-PROVE 16:00: 16:59 [place] RA) 00 :00 Medical injection Branch 150 mg medroxyPROG No 150mg 150 mg, U nivers ESTERone 08-11 Intramuscu ity of (DEPO-PROVE 16:00: 16:59 lar, [place] RA) 00 :00 [id number], Medical injection 3 doses, Branch 150 mg First dose on Thu08/12/19 at 1100, Last dose on Thu01/27/20 at 1100, Routine medroxyPROG No 150mg Univ ers ESTERone 08-11 ity of (DEPO-PROVE 16:00: 16:59 [place] RA) 00 :00 Medical injection Branch 150 mg medroxyPROG No 150mg Univ ers ESTERone 08-11 ity of (DEPO-PROVE 16:00: 16:59 [place] RA) 00 :00 Medical injection Branch 150 mg medroxyPROG 2019- No 150mg 150 mg, U nivers ESTERone - 02-06 Intramuscu ity of (DEPO-PROVE 16:30: 15:51 lar, ONCE, [place] RA) 00 :00 1 dose, Medical injection Alexus 04/21/19 Bran ch 150 mg at 1030, Routine rho(D) Yes 300ug 300 mcg, Univer s immune 2-06 Intramuscu ity of globulin 02:34: lar, ONCE, [place] as (RHOGAM) 09 For 1 Medical syringe 300 dose, Branch mcg Conditiona l, Routine HYDROcodone Yes 1{tbl} 1 tablet, Univers -acetaminop 2-06 Oral, ity of hen (NORCO 02:34: Q6HPRN, [place] 5) 5-325 mg 05 Starting Medi parish tablet 1 Thu04/20/19 Branc h tablet at 2033, Until Discontinu ed, Routine, Pain (scale 7-10) ibuprofen 2020-0 Yes 600mg 600 mg, Univ ers (IBU) 2-06 Oral, ity of tablet 600 02:34: Q6HPRN, [place] mg 05 Starting Medical Thu04/20/19 Branch at 2033, Until Discontinu ed, Routine, Pain (scale 4-6) acetaminoph 2020-0 Yes 650mg 650 mg, Un maria m en 2-06 Oral, ity of (TYLENOL) 02:34: Q6HPRN, [place] tablet 650 05 Starting Medic al mg Thu04/20/19 Branch at 2033, Until Discontinu ed, Routine, Pain (scale 1-3) diphenhydrA 2020-0 Yes 25mg 25 mg, Univ ers MINE 2-06 Oral, ity of (BENADRYL) 02:34: Q6HPRN, [place] tablet 25 05 Starting Medica l mg Thu04/20/19 Branch at 2033, Until Discontinu ed, Routine, Sleep, Itching ondansetron 2020-0 Yes 4mg 4 mg, Slow Univers (ZOFRAN 2- IV Push, ity of (PF)) 02:34: Q8HPRN, [place] injection 4 05 Starting Medi parish mg Thu04/20/19 Branch at 2033, Until Discontinu ed, Routine, Nausea and Vomiting (N/V) simethicone 2020-0 Yes 160mg 160 mg, Un maria m (GAS RELIEF 2-06 Oral, ity of (SIMETHICON 02:34: PC+HSPRN, [place] E)) 05 Starting Medical chewable Thu04/20/19 Branc h tablet 160 at 2033, mg Until Discontinu ed, Routine, Gas docusate 2020-0 Yes 240mg 240 mg, Unive rs calcium 2-06 Oral, ity of (SURFAK) 02:34: QDAILYPRN, [place] capsule 240 05 Starting Medi parish mg Thu04/20/19 Branch at 2033, Until Discontinu ed, Routine, Constipati on magnesium 2020-0 Yes 30mL 30 mL, Univer s hydroxide 2-06 Oral, ity of (MILK OF 02:34: QDAILYPRN, [place] as MAGNESIA) 05 Starting Medica l 400 mg/5 mL Thu04/20/19 Br anch suspension at 2033, 30 mL Until Discontinu ed, Routine, Constipati on benzocaine- 2019-0 Yes Topical, Un maria m menthol 2-06 PRN, ity of (DERMOPLAST 02:34: Starting [place] 20-0.5 % 05 Thu04/20/19 Med ical topical at 2033, Branch spray Until Discontinu ed, Routine, Perineum discomfort 2019- Yes [id number] 1{tbl} Take 1 Univers vitamin 2-06 tablet by ity of w/FA tablet 00:00: mouth [place] 00 daily. Medical Branch docusate Yes [id number] 240mg Take 1 U nivers calcium 240 2-06 capsule by it y of mg capsule 00:00: mouth once [place] 00 daily as Medical needed for Branch Constipati on. ferrous 2019-0 Yes [id number] 325mg Take 1 Un maria m sulfate 325 2-06 tablet by ity of mg (65 mg 00:00: mouth 2 [place] iron) 00 (two) Medical tablet times Branch daily. ibuprofen 2019-0 Yes [id number] 600mg Take 1 Univers 600 mg 2-06 tablet by ity of tablet 00:00: mouth [place] 00 every 6 Medical (six) Branch hours as needed for Pain (scale 1-3) or Pain (scale 4-6) (Pain). Take with food or milk. 2019-0 Yes [id number] 1{tbl} Take 1 Univers vitamin 2-06 tablet by ity of w/FA tablet 00:00: mouth [place] 00 daily. Medical Branch docusate 0 Yes [id number] 240mg Take 1 U nivers calcium 240 2-06 capsule by it y of mg capsule 00:00: mouth once [place] 00 daily as Medical needed for Branch Constipati on. ferrous 2020-0 Yes [id number] 325mg Take 1 Un maria m sulfate 325 2-06 tablet by ity of mg (65 mg 00:00: mouth 2 [place] iron) 00 (two) Medical tablet times Branch daily. ibuprofen 2019-0 Yes [id number] 600mg Take 1 Univers 600 mg 2-06 tablet by ity of tablet 00:00: mouth [place] 00 every 6 Medical (six) Branch hours as needed for Pain (scale 1-3) or Pain (scale 4-6) (Pain). Take with food or milk. 2020-0 Yes [id number] 1{tbl} Take 1 Univers vitamin 2-06 tablet by ity of w/FA tablet 00:00: mouth [place] 00 daily. Medical Branch docusate 2020-0 Yes [id number] 240mg Take 1 U nivers calcium 240 2-06 capsule by it y of mg capsule 00:00: mouth once [place] 00 daily as Medical needed for Branch Constipati on. ferrous 2020-0 Yes [id number] 325mg Take 1 Un maria m sulfate 325 2-06 tablet by ity of mg (65 mg 00:00: mouth 2 [place] iron) 00 (two) Medical tablet times Branch daily. ibuprofen 2020-0 Yes [id number] 600mg Take 1 Univers 600 mg 2-06 tablet by ity of tablet 00:00: mouth [place] 00 every 6 Medical (six) Branch hours as needed for Pain (scale 1-3) or Pain (scale 4-6) (Pain). Take with food or milk. 2019-0 Yes [id number] 1{tbl} Take 1 Univers vitamin 2-06 tablet by ity of w/FA tablet 00:00: mouth [place] 00 daily. Medical Branch docusate 2019-0 Yes [id number] 240mg Take 1 U nivers calcium 240 2-06 capsule by it y of mg capsule 00:00: mouth once [place] 00 daily as Medical needed for Branch Constipati on. ferrous 2020-0 Yes [id number] 325mg Take 1 Un maria m sulfate 325 2-06 tablet by ity of mg (65 mg 00:00: mouth 2 [place] iron) 00 (two) Medical tablet times Branch daily. ibuprofen 2020-0 Yes [id number] 600mg Take 1 Univers 600 mg 2-06 tablet by ity of tablet 00:00: mouth [place] 00 every 6 Medical (six) Branch hours as needed for Pain (scale 1-3) or Pain (scale 4-6) (Pain). Take with food or milk. 2020-0 Yes [id number] 1{tbl} Take 1 Univers vitamin 2-06 tablet by ity of w/FA tablet 00:00: mouth [place] 00 daily. Medical Branch docusate 2020-0 Yes [id number] 240mg Take 1 U nivers calcium 240 2-06 capsule by it y of mg capsule 00:00: mouth once [place] 00 daily as Medical needed for Branch Constipati on. ferrous 2020-0 Yes [id number] 325mg Take 1 Un maria m sulfate 325 2-06 tablet by ity of mg (65 mg 00:00: mouth 2 [place] iron) 00 (two) Medical tablet times Branch daily. ibuprofen 2020-0 Yes [id number] 600mg Take 1 Univers 600 mg 2-06 tablet by ity of tablet 00:00: mouth [place] 00 every 6 Medical (six) Branch hours as needed for Pain (scale 1-3) or Pain (scale 4-6) (Pain). Take with food or milk. 2020-0 Yes [id number] 1{tbl} Take 1 Univers vitamin 2-06 tablet by ity of w/FA tablet 00:00: mouth [place] 00 daily. Medical Branch docusate 2020-0 Yes [id number] 240mg Take 1 U nivers calcium 240 2-06 capsule by it y of mg capsule 00:00: mouth once [place] 00 daily as Medical needed for Branch Constipati on. ferrous 2020-0 Yes [id number] 325mg Take 1 Un maria m sulfate 325 2-06 tablet by ity of mg (65 mg 00:00: mouth 2 [place] iron) 00 (two) Medical tablet times Branch daily. ibuprofen 2020-0 Yes [id number] 600mg Take 1 Univers 600 mg 2-06 tablet by ity of tablet 00:00: mouth [place] 00 every 6 Medical (six) Branch hours as needed for Pain (scale 1-3) or Pain (scale 4-6) (Pain). Take with food or milk. 2020-0 Yes [id number] 1{tbl} Take 1 Univers vitamin 2-06 tablet by ity of w/FA tablet 00:00: mouth [place] 00 daily. Medical Branch docusate 2020-0 Yes [id number] 240mg Take 1 U nivers calcium 240 2-06 capsule by it y of mg capsule 00:00: mouth once [place] 00 daily as Medical needed for Branch Constipati on. ferrous 2020-0 Yes [id number] 325mg Take 1 Un maria m sulfate 325 2-06 tablet by ity of mg (65 mg 00:00: mouth 2 [place] iron) 00 (two) Medical tablet times Branch daily. ibuprofen 2020-0 Yes [id number] 600mg Take 1 Univers 600 mg 2-06 tablet by ity of tablet 00:00: mouth [place] 00 every 6 Medical (six) Branch hours as needed for Pain (scale 1-3) or Pain (scale 4-6) (Pain). Take with food or milk. 2020-0 Yes [id number] 1{tbl} Take 1 Univers vitamin 2-06 tablet by ity of w/FA tablet 00:00: mouth [place] 00 daily. Medical Branch docusate 2020-0 Yes [id number] 240mg Take 1 U nivers calcium 240 2-06 capsule by it y of mg capsule 00:00: mouth once [place] 00 daily as Medical needed for Branch Constipati on. ferrous 2020-0 Yes [id number] 325mg Take 1 Un maria m sulfate 325 2-06 tablet by ity of mg (65 mg 00:00: mouth 2 [place] iron) 00 (two) Medical tablet times Branch daily. ibuprofen 2020-0 Yes [id number] 600mg Take 1 Univers 600 mg 2-06 tablet by ity of tablet 00:00: mouth [place] 00 every 6 Medical (six) Branch hours as needed for Pain (scale 1-3) or Pain (scale 4-6) (Pain). Take with food or milk. 2020-0 Yes [id number] 1{tbl} Take 1 Univers vitamin 2-06 tablet by ity of w/FA tablet 00:00: mouth [place] 00 daily. Medical Branch docusate 2020-0 Yes [id number] 240mg Take 1 U nivers calcium 240 2-06 capsule by it y of mg capsule 00:00: mouth once [place] 00 daily as Medical needed for Branch Constipati on. ferrous 2020-0 Yes [id number] 325mg Take 1 Un maria m sulfate 325 2-06 tablet by ity of mg (65 mg 00:00: mouth 2 [place] iron) 00 (two) Medical tablet times Branch daily. ibuprofen 2020-0 Yes [id number] 600mg Take 1 Univers 600 mg 2-06 tablet by ity of tablet 00:00: mouth [place] 00 every 6 Medical (six) Branch hours as needed for Pain (scale 1-3) or Pain (scale 4-6) (Pain). Take with food or milk. 2020-0 Yes [id number] 1{tbl} Take 1 Univers vitamin 2-06 tablet by ity of w/FA tablet 00:00: mouth [place] 00 daily. Medical Branch docusate 2020-0 Yes [id number] 240mg Take 1 U nivers calcium 240 2-06 capsule by it y of mg capsule 00:00: mouth once [place] 00 daily as Medical needed for Branch Constipati on. ferrous 2020-0 Yes [id number] 325mg Take 1 Un maria m sulfate 325 2-06 tablet by ity of mg (65 mg 00:00: mouth 2 [place] iron) 00 (two) Medical tablet times Branch daily. ibuprofen 2020-0 Yes [id number] 600mg Take 1 Univers 600 mg 2-06 tablet by ity of tablet 00:00: mouth [place] 00 every 6 Medical (six) Branch hours as needed for Pain (scale 1-3) or Pain (scale 4-6) (Pain). Take with food or milk. 2019-0 Yes [id number] 1{tbl} Take 1 Univers vitamin 2-06 tablet by ity of w/FA tablet 00:00: mouth [place] 00 daily. Medical Branch docusate 2020-0 Yes [id number] 240mg Take 1 U nivers calcium 240 2-06 capsule by it y of mg capsule 00:00: mouth once [place] 00 daily as Medical needed for Branch Constipati on. ferrous 2020-0 Yes [id number] 325mg Take 1 Un maria m sulfate 325 2-06 tablet by ity of mg (65 mg 00:00: mouth 2 [place] iron) 00 (two) Medical tablet times Branch daily. ibuprofen 2020-0 Yes [id number] 600mg Take 1 Univers 600 mg 2-06 tablet by ity of tablet 00:00: mouth [place] 00 every 6 Medical (six) Branch hours as needed for Pain (scale 1-3) or Pain (scale 4-6) (Pain). Take with food or milk. 2020-0 Yes [id number] 1{tbl} Take 1 Univers vitamin 2-06 tablet by ity of w/FA tablet 00:00: mouth [place] 00 daily. Medical Branch docusate 2020-0 Yes [id number] 240mg Take 1 U nivers calcium 240 2-06 capsule by it y of mg capsule 00:00: mouth once [place] 00 daily as Medical needed for Branch Constipati on. ferrous 2020-0 Yes [id number] 325mg Take 1 Un maria m sulfate 325 2-06 tablet by ity of mg (65 mg 00:00: mouth 2 [place] iron) 00 (two) Medical tablet times Branch daily. ibuprofen 2020-0 Yes [id number] 600mg Take 1 Univers 600 mg 2-06 tablet by ity of tablet 00:00: mouth [place] 00 every 6 Medical (six) Branch hours as needed for Pain (scale 1-3) or Pain (scale 4-6) (Pain). Take with food or milk. 2020-0 Yes [id number] 1{tbl} Take 1 Univers vitamin 2-06 tablet by ity of w/FA tablet 00:00: mouth [place] 00 daily. Medical Branch docusate 2020-0 Yes [id number] 240mg Take 1 U nivers calcium 240 2-06 capsule by it y of mg capsule 00:00: mouth once [place] 00 daily as Medical needed for Branch Constipati on. ferrous 2020-0 Yes [id number] 325mg Take 1 Un maria m sulfate 325 2-06 tablet by ity of mg (65 mg 00:00: mouth 2 [place] iron) 00 (two) Medical tablet times Branch daily. ibuprofen 2020-0 Yes [id number] 600mg Take 1 Univers 600 mg 2-06 tablet by ity of tablet 00:00: mouth [place] 00 every 6 Medical (six) Branch hours as needed for Pain (scale 1-3) or Pain (scale 4-6) (Pain). Take with food or milk. 2020-0 Yes [id number] 1{tbl} Take 1 Univers vitamin 2-06 tablet by ity of w/FA tablet 00:00: mouth [place] 00 daily. Medical Branch docusate 2020-0 Yes [id number] 240mg Take 1 U nivers calcium 240 2-06 capsule by it y of mg capsule 00:00: mouth once [place] 00 daily as Medical needed for Branch Constipati on. ferrous 2020-0 Yes [id number] 325mg Take 1 Un maria m sulfate 325 2-06 tablet by ity of mg (65 mg 00:00: mouth 2 [place] iron) 00 (two) Medical tablet times Branch daily. ibuprofen 2020-0 Yes [id number] 600mg Take 1 Univers 600 mg 2-06 tablet by ity of tablet 00:00: mouth [place] 00 every 6 Medical (six) Branch hours as needed for Pain (scale 1-3) or Pain (scale 4-6) (Pain). Take with food or milk. 2020-0 Yes [id number] 1{tbl} Take 1 Univers vitamin 2-06 tablet by ity of w/FA tablet 00:00: mouth [place] 00 daily. Medical Branch docusate 2020-0 Yes [id number] 240mg Take 1 U nivers calcium 240 2-06 capsule by it y of mg capsule 00:00: mouth once [place] 00 daily as Medical needed for Branch Constipati on. ferrous 2020-0 Yes [id number] 325mg Take 1 Un maria m sulfate 325 2-06 tablet by ity of mg (65 mg 00:00: mouth 2 [place] iron) 00 (two) Medical tablet times Branch daily. ibuprofen 2020-0 Yes [id number] 600mg Take 1 Univers 600 mg 2-06 tablet by ity of tablet 00:00: mouth [place] 00 every 6 Medical (six) Branch hours as needed for Pain (scale 1-3) or Pain (scale 4-6) (Pain). Take with food or milk. 2019-0 Yes [id number] 1{tbl} Take 1 Univers vitamin 2-06 tablet by ity of w/FA tablet 00:00: mouth [place] 00 daily. Medical Branch docusate 2019-0 Yes [id number] 240mg Take 1 U nivers calcium 240 2-06 capsule by it y of mg capsule 00:00: mouth once [place] 00 daily as Medical needed for Branch Constipati on. ferrous 2020-0 Yes [id number] 325mg Take 1 Un maria m sulfate 325 2-06 tablet by ity of mg (65 mg 00:00: mouth 2 [place] iron) 00 (two) Medical tablet times Branch daily. ibuprofen 2020-0 Yes [id number] 600mg Take 1 Univers 600 mg 2-06 tablet by ity of tablet 00:00: mouth [place] 00 every 6 Medical (six) Branch hours as needed for Pain (scale 1-3) or Pain (scale 4-6) (Pain). Take with food or milk. 2020-0 Yes [id number] 1{tbl} Take 1 Univers vitamin 2-06 tablet by ity of w/FA tablet 00:00: mouth [place] 00 daily. Medical Branch docusate 2020-0 Yes [id number] 240mg Take 1 U nivers calcium 240 2-06 capsule by it y of mg capsule 00:00: mouth once [place] 00 daily as Medical needed for Branch Constipati on. ferrous 2019- Yes [id number] 325mg Take 1 Un maria m sulfate 325 2-06 tablet by ity of mg (65 mg 00:00: mouth 2 [place] iron) 00 (two) Medical tablet times Branch daily. ibuprofen 2019- Yes [id number] 600mg Take 1 Univers 600 mg 2-06 tablet by ity of tablet 00:00: mouth [place] 00 every 6 Medical (six) Branch hours as needed for Pain (scale 1-3) or Pain (scale 4-6) (Pain). Take with food or milk. D5W-LR IV 2019- No 1000mL at 125 Uni vers infusion 2 02-06 mL/hr, IV ity o f 1,000 mL 17:30: 02:34 Infusion, [place] as 00 :10 CONTINUOUS Medical , Starting Branch 04/20/19 at 1130, Until Thu04/20/19 at 2033, Routine FENTanyl PF 2019- No 100ug 100 mcg, Univers (SUBLIMAZE 04-20 02-06 Slow IV ity o f (PF)) 17:21: 02:34 Push, [place] injection 39 :10 Q1HPRN, Medical 100 mcg Starting Branch 04/20/19 at 1121, Until Thu04/20/19 at 2033, Routine, contractio n pain without an epidural and SVE < 8 cm and Cat I strip PNV 67-iron Yes [id number] 1{capsu Take 1 Univers ps-folate 8-19 le} capsule by ity of no.1[facility]dha 00:00: mouth [place] (VITAFOL 00 daily. Medical ULTRA) 29 Branch mg iron- 1 mg-200 mg Cap PNV 67-iron Yes [id number] 1{capsu Take 1 Univers ps-folate 8-19 le} capsule by ity of no.1-dha 00:00: mouth [place] (VITAFOL 00 daily. Medical ULTRA) 29 Branch mg iron- 1 mg-200 mg Cap PNV 67-iron Yes [id number] 1{capsu Take 1 Univers ps-folate 8-19 le} capsule by ity of no.1-dha 00:00: mouth [place] (VITAFOL 00 daily. Medical ULTRA) 29 Branch mg iron- 1 mg-200 mg Cap PNV 67-iron 2019-0 Yes [id number] 1{capsu Take 1 Univers ps-folate 8-19 le} capsule by ity of no.1-dha 00:00: mouth [place] (VITAFOL 00 daily. Medical ULTRA) 29 Branch mg iron- 1 mg-200 mg Cap PNV 67-iron 2019-0 Yes [id number] 1{capsu Take 1 Univers ps-folate 8-19 le} capsule by ity of no.1-dha 00:00: mouth [place] (VITAFOL 00 daily. Medical ULTRA) 29 Branch mg iron- 1 mg-200 mg Cap PNV 67-iron 2019-0 Yes [id number] 1{capsu Take 1 Univers ps-folate 8-19 le} capsule by ity of no.1-dha 00:00: mouth [place] (VITAFOL 00 daily. Medical ULTRA) 29 Branch mg iron- 1 mg-200 mg Cap PNV 67-iron 2019-0 Yes [id number] 1{capsu Take 1 Univers ps-folate 8-19 le} capsule by ity of no.1-dha 00:00: mouth [place] (VITAFOL 00 daily. Medical ULTRA) 29 Branch mg iron- 1 mg-200 mg Cap PNV 67-iron 2019-0 Yes [id number] 1{capsu Take 1 Univers ps-folate 8-19 le} capsule by ity of no.1-dha 00:00: mouth [place] (VITAFOL 00 daily. Medical ULTRA) 29 Branch mg iron- 1 mg-200 mg Cap PNV 67-iron 2019-0 Yes [id number] 1{capsu Take 1 Univers ps-folate 8-19 le} capsule by ity of no.1-dha 00:00: mouth [place] (VITAFOL 00 daily. Medical ULTRA) 29 Branch mg iron- 1 mg-200 mg Cap PNV 67-iron 2019-0 Yes [id number] 1{capsu Take 1 Univers ps-folate 8-19 le} capsule by ity of no.1-dha 00:00: mouth [place] (VITAFOL 00 daily. Medical ULTRA) 29 Branch mg iron- 1 mg-200 mg Cap PNV 67-iron 2019-0 Yes [id number] 1{capsu Take 1 Univers ps-folate 8-19 le} capsule by [facility]y of no.1-dha 00:00: mouth [place] (VITAFOL 00 daily. Medical ULTRA) 29 Branch mg iron- 1 mg-200 mg Cap PNV 67-iron 2019-0 Yes [id number] 1{capsu Take 1 Univers ps-folate 8-19 le} capsule by [facility] of no.1-dha 00:00: mouth [place] (VITAFOL 00 daily. Medical ULTRA) 29 Branch mg iron- 1 mg-200 mg Cap PNV 67-iron 2019-0 Yes [id number] 1{capsu Take 1 [facility] ps-folate 8-19 le} capsule by [facility] of no.1-dha 00:00: mouth [place] (VITAFOL 00 daily. Medical ULTRA) 29 Branch mg iron- 1 mg-200 mg Cap PNV 67-iron 2019-0 Yes [id number] 1{capsu Take 1 Univers ps-folate 8-19 le} capsule by ity of no.1-dha 00:00: mouth [place] (VITAFOL 00 daily. Medical ULTRA) 29 Branch mg iron- 1 mg-200 mg Cap PNV 67-iron 2019-0 Yes [id number] 1{capsu Take 1 [facility] ps-folate 8-19 le} capsule by it[facility] of no.1-dha 00:00: mouth [place] (VITAFOL 00 daily. Medical ULTRA) 29 Branch mg iron- 1 mg-200 mg Cap PNV 67-iron 2019-0 Yes [id number] 1{capsu Take 1 Univers ps-folate 8-19 le} capsule by it[facility] of no.1-dha 00:00: mouth [place] (VITAFOL 00 daily. Medical ULTRA) 29 Branch mg iron- 1 mg-200 mg Cap PNV 67-iron 2019-0 Yes [id number] 1{capsu Take 1 [facility] ps-folate 8-19 le} capsule by it[facility] of no.1-dha 00:00: mouth [place] (VITAFOL 00 daily. Medical ULTRA) 29 Branch mg iron- 1 mg-200 mg Cap PNV 67-iron 2019-0 Yes [id number] 1{capsu Take 1 [facility] ps-folate 8-19 le} capsule by ity of no.1-dha 00:00: mouth [place] (VITAFOL 00 daily. Medical ULTRA) 29 Branch mg iron- 1 mg-200 mg Cap PNV 67-iron 2019-0 Yes [id number] 1{capsu Take 1 Univers ps-folate 8-19 le} capsule by ity of no.1-dha 00:00: mouth [place] (VITAFOL 00 daily. Medical ULTRA) 29 Branch mg iron- 1 mg-200 mg Cap PNV 67-iron 2019-0 Yes [id number] 1{capsu Take 1 [facility] ps-folate 8-19 le} capsule by ity of no.1-dha 00:00: mouth [place] (VITAFOL 00 daily. Medical ULTRA) 29 Branch mg iron- 1 mg-200 mg Cap PNV 67-iron 2019-0 Yes [id number] 1{capsu Take 1 [facility] ps-folate 8-19 le} capsule by ity of no.1-dha 00:00: mouth [place] (VITAFOL 00 daily. Medical ULTRA) 29 Branch mg iron- 1 mg-200 mg Cap PNV 67-iron 2018- Yes [id number] 1{capsu Take 1 [facility] ps-folate 8-19 le} capsule by ity of no.1-dha 00:00: mouth [place] (VITAFOL 00 daily. Medical ULTRA) 29 Branch mg iron- 1 mg-200 mg Cap norgestimat 2017-03 Yes [id number] 1{tbl} Take 1 Univers e-ethinyl 2-20 tablet by ity o f estradiol 00:00: mouth [place] [facility] 00 [facility]. [facility] 0.18/0.215/ 0.25 mg-25 mcg tablet norgestimat 2017-03 2019- No [id number] 1{tbl} Take 1 Univers e-ethinyl 2-20 08-19 tablet by ity of estradiol 00:00: 00:00 mouth [place] [facility] 0.18/0.215/ 0.25 mg-25 mcg tablet Immunizations Ordered Filled Immunization Date Status Comments Sour e Immunization Name Name Td 2017-12-08 Completed [facility] of 00:00:[address] [facility] Tdap 2017-12-08 Completed [facility] of 00:00:[address] [facility] Tdap 2017-12-08 Completed University of 00[facility]00:[address] [facility] Tdap 2017-12-08 Completed [facility] of 00[facility]00:[address] [facility] Tdap 2017-12-08 Completed [facility] of 00[facility]00:[address] [facility] Tdap 2017-12-08 Completed [facility] of 00:00:[address] [facility] Tdap 2017-12-08 Completed [facility] of 00:00:00 [facility] Tdap 2017-12-08 Completed [facility] 00:00:00 [facility] Tdap 2017-12-08 Completed [facility] of 00:00:00 [facility] Tdap 2017-12-08 Completed [facility] of 00:00:00 [facility] Tdap 2017-12-08 Completed [facility] of 00:00:00 [facility] TDAP 2017-12-08 Completed [facility] of 00:00:00 [facility] TDAP 2017-12-08 Completed [facility] of 00:00:00 [facility] TDAP 2017-12-08 Completed [facility] 00:00:00 [facility] TDAP 2017-12-08 Completed [facility] 00:00:00 [facility] TDAP 2017-12-08 Completed [facility] 00:00:00 [facility] TDAP 2017-12-08 Completed [facility] 00:00:00 [facility] TDAP 2017-12-08 Completed [facility] 00:00:00 [facility] TDAP 2017-12-08 Completed [facility] of 00:00:00 [facility] TDAP 2017-12-08 Completed [facility] of 00:00:00 [facility] Tdap 2017-12-08 Completed [facility] of 00:00:00 [facility] Tdap 2017-12-08 Completed [facility] of 00:00:00 [facility] Tdap 2017-12-08 Completed [facility] of 00:00:00 [facility] HPV 2010-10-18 Completed University of 00:00:00 [facility] Rubella 2010-10-18 Completed [facility] of 00:00:00 [facility] HPV 2010-10-18 Completed [facility] of 00:00:00 [place] [facility] Rubella 2010-10-18 Completed [facility] of 00:00:00 [place] [facility] HPV 2010-10-18 Completed [facility] of 00:00:00 [place] [facility] Rubella 2010-10-18 Completed [facility] of 00:00:00 [place] [facility] HPV 2010-10-18 Completed [facility] of 00:00:00 [place] [facility] Rubella 2010-10-18 Completed [facility] of 00:00:00 [place] [facility] HPV 2010-10-18 Completed [facility] of 00:00:00 [facility] Rubella 2010-10-18 Completed [facility] of 00:00:00 [place] [facility] HPV 2010-10-18 Completed [facility] of 00:00:00 [place] [facility] Rubella 2010-10-18 Completed [facility] of 00:00:00 [place] [facility] HPV 2010-10-18 Completed [facility] of 00:00:00 [place] [facility] Rubella 2010-10-18 Completed [facility] of 00:00:00 [place] [facility] HPV 2010-10-18 Completed [facility] of 00:00:00 [place] [facility] Rubella 2010-10-18 Completed [facility] of 00:00:00 [place] [facility] HPV 2010-10-18 Completed [facility] of 00:00:00 [place] [facility] Rubella 2010-10-18 Completed [facility] of 00:00:00 [place] [facility] HPV 2010-10-18 Completed [facility] of 00:00:00 [place] [facility] Rubella 2010-10-18 Completed [facility] of 00:00:00 [place] [facility] HPV 2010-10-18 Completed [facility] of 00:00:00 [place] [facility] Rubella 2010-10-18 Completed [facility] of 00:00:00 [place] [facility] HPV 2010-10-18 Completed [facility] of 00:00:00 [place] [facility] Rubella 2010-10-18 Completed [facility] of 00:00:00 [place] [facility] HPV 2010-10-18 Completed [facility] of 00:00:00 [place] [facility] Rubella 2010-10-18 Completed [facility] of 00:00:00 [place] [facility] HPV 2010-10-18 Completed [facility] of 00:00:00 [place] [facility] Rubella 2010-10-18 Completed [facility] of 00:00:00 [place] [facility] HPV 2010-10-18 Completed [facility] of 00:00:00 [place] [facility] Rubella 2010-10-18 Completed [facility] of 00:00:00 [place] [facility] HPV 2010-10-18 Completed [facility] of 00:00:00 [place] [facility] Rubella 2010-10-18 Completed [facility] of 00:00:00 [place] [facility] HPV 2010-10-18 Completed [facility] of 00:00:00 [place] [facility] Rubella 2010-10-18 Completed [facility] of 00:00:00 [place] [facility] HPV 2010-10-18 Completed [facility] of 00:00:00 [place] [facility] Rubella 2010-10-18 Completed [facility] of 00:00:00 [place] [facility] HPV 2010-10-18 Completed [facility] of 00:00:00 [place] [facility] Rubella 2010-10-18 Completed [facility] of 00:00:00 [place] [facility] HPV 2010-10-18 Completed [facility] of 00:00:00 [place] [facility] HPV 2010-10-18 Completed [facility] of 00:00:00 [place] [facility] Rubella 2010-10-18 Completed [facility] of 00:00:00 [place] [facility] Rubella 2010-10-18 Completed [facility] of 00:00:00 [place] [facility] HPV 2010-10-18 Completed [facility] of 00:00:00 [place] [facility] Rubella 2010-10-18 Completed [facility] of 00:00:00 [place] [facility] HPV 2010-10-18 Completed [facility] of 00:00:00 [place] [facility] Rubella 2010-10-18 Completed [facility] of 00:00:00 [place] [facility] HPV 2010-07-30 Completed [facility] of 00:00:00 [place] [facility] HPV 2010-07-30 Completed [facility] of 00:00:00 [place] [facility] HPV 2010-07-30 Completed [facility] of 00:00:00 [place] [facility] HPV 2010-07-30 Completed [facility] of 00:00:00 [place] [facility] HPV 2010-07-30 Completed [facility] of 00:00:00 [place] [facility] HPV 2010-07-30 Completed [facility] of 00:00:00 [place] [facility] HPV 2010-07-30 Completed [facility] of 00:00:00 [place] [facility] HPV 2010-07-30 Completed [facility] 00:00:00 [place] [facility] HPV 2010-07-30 Completed [facility] 00:00:00 [place] [facility] HPV 2010-07-30 Completed [facility] of 00:00:00 [place] [facility] HPV 2010-07-30 Completed [facility] of 00:00:00 [place] [facility] HPV 2010-07-30 Completed [facility] of 00:00:00 [place] [facility] HPV 2010-07-30 Completed [facility] of 00:00:00 [place] [facility] HPV 2010-07-30 Completed [facility] of 00:00:00 [place] [facility] HPV 2010-07-30 Completed [facility] of 00:00:00 [place] [facility] HPV 2010-07-30 Completed [facility] of 00:00:00 [place] [facility] HPV 2010-07-30 Completed [facility] of 00:00:00 [place] [facility] HPV 2010-07-30 Completed [facility] of 00:00:00 [place] [facility] HPV 2010-07-30 Completed [facility] of 00:00:00 [place] [facility] HPV 2010-07-30 Completed [facility] of 00:00:00 [place] [facility] HPV 2010-07-30 Completed [facility] of 00:00:00 [place] [facility] HPV 2010-07-30 Completed [facility] of 00:00:00 [place] [facility] HPV 2010-07-30 Completed [facility] of 00:00:00 [place] [facility] Tdap 2008-03-16 Completed [facility] of 00:00:00 [facility] Tdap 2008-03-16 Completed [facility] of 00:00:00 [facility] Tdap 2008-03-16 Completed [facility] of 00:00:00 [facility] Tdap 2008-03-16 Completed [facility] of 00:00:00 [facility] Tdap 2008-03-16 Completed [facility] of 00:00:00 [facility] Tdap 2008-03-16 Completed [facility] of 00:00:00 [facility] Tdap 2008-03-16 Completed [facility] of 00:00:00 [facility] Tdap 2008-03-16 Completed [facility] of 00:00:00 [facility] Tdap 2008-03-16 Completed [facility] of 00:00:00 [facility] Tdap 2008-03-16 Completed [facility] of 00:00:00 [facility] Tdap 2008-03-16 Completed [facility] of 00:00:00 [facility] TDAP 2008-03-16 Completed [facility] of 00:00:00 [facility] TDAP 2008-03-16 Completed [facility] of 00:00:00 [facility] TDAP 2008-03-16 Completed [facility] of 00:00:00 [facility] TDAP 2008-03-16 Completed [facility] of 00:00:00 [facility] TDAP 2008-03-16 Completed [facility] of 00:00:00 [facility] TDAP 2008-03-16 Completed [facility] of 00:00:00 [facility] TDAP 2008-03-16 Completed [facility] of 00:00:00 [facility] TDAP 2008-03-16 Completed [facility] of 00:00:00 [facility] TDAP 2008-03-16 Completed [facility] of 00:00:00 [facility] Tdap 2008-03-16 Completed [facility] of 00:00:00 [facility] Tdap 2008-03-16 Completed [facility] of 00:00:00 [facility] Tdap 2008-03-16 Completed [facility] of 00:00:[address] [facility] Vital Signs Vital Name Observation Time Observation Value Comments Source Systolic blood 2021-07-23 02:28:00 163 mm[Hg] Univer sity of pressure [facility] Diastolic blood 2021-07-23 02:28:00 82 mm[Hg] Unive rsity of pressure [facility] Heart rate 2021-07-23 02:28:00 100 /min [facility] [place] [facility] Body temperature 2021-07-23 02:28:00 37.44 [place] [facility] [place] [facility] Respiratory rate 2021-07-23 02:28:00 16 /min [facility] [place] [facility] Body height 2021-07-23 02:28:00 172.7 cm [facility] [place] [facility] Body weight 2021-07-23 02:28:00 108.863 kg [facility] [place] [facility] BMI 2021-07-23 02:28:00 36.49 kg/m2 [facility] [place] [facility] Oxygen saturation in 2021-07-23 02:28:00 98 /min [facility] Arterial blood by [place] [facility] Systolic blood 2021-06-24 22:27:42 134 mm[Hg] Univer sity of pressure [facility] Diastolic blood 2021-06-24 22:27:42 78 mm[Hg] Unive rsity of pressure [facility] Heart rate 2021-06-24 22:27:42 67 /min [facility] [place] [facility] Respiratory rate 2021-06-24 22:27:42 18 /min [facility] [place] [facility] Oxygen saturation in 2021-06-24 22:27:42 97 /min [facility]ial blood by [place] [facility] Body temperature 2021-06-24 21:13:00 37.56 [place] [facility] [place] [facility] Body height 2021-06-24 21:13:00 172.7 cm [facility] [place] [facility] Body weight 2021-06-24 21:13:00 108.863 kg [facility] [place] [facility] BMI 2021-06-24 21:13:00 36.49 kg/m2 [facility] [place] [facility] Heart rate 2020-09-12 03:00:00 68 /min [facility] [place] [facility] Respiratory rate 2020-09-12 03:00:00 18 /min [facility] [place] [facility] Oxygen saturation in 2020-09-12 03:00:00 97 /min [facility] blood by [place] [facility] Systolic blood 2020-09-12 01:34:00 166 mm[Hg] Univer sity of pressure [place] [facility] Diastolic blood 2020-09-12 01:34:00 96 mm[Hg] Unive rsity of pressure [facility] Body temperature 2020-09-12 01:34:00 37.5 [place] [facility] [place] [facility] Body weight 2020-09-12 01:34:00 97.523 kg [facility] [place] [facility] BMI 2020-09-12 01:34:00 32.69 kg/m2 [facility] [place] [facility] Systolic blood 2020-06-12 16:04:00 133 mm[Hg] Univer sity of pressure [facility] Diastolic blood 2020-06-12 16:04:00 74 mm[Hg] Unive rsity of pressure [facility] Heart rate 2020-06-12 16:04:00 77 /min [facility] [place] [facility] Body temperature 2020-06-12 16:04:00 36.61 [place] [facility] [place] [facility] Respiratory rate 2020-06-12 16:04:00 14 /min [facility] [place] [facility] Body weight 2020-06-12 16:04:00 86.183 kg [facility] [place] [facility] BMI 2020-06-12 16:04:00 28.89 kg/m2 [facility] [place] [facility] Oxygen saturation in 2020-06-12 16:04:00 97 /min University of Arterial blood by [facility] Pulse oximetry Branch Systolic blood 2020-06-12 16:04:00 133 mm[Hg] Univer sity of pressure [facility] Diastolic blood 2020-06-12 16:04:00 74 mm[Hg] Unive rsity of pressure [facility] Heart rate 2020-06-12 16:04:00 77 /min [facility] [place] [facility] Body temperature 2020-06-12 16:04:00 36.61 [place] [facility] [place] [facility] Respiratory rate 2020-06-12 16:04:00 14 /min [facility] [place] [facility] Body weight 2020-06-12 16:04:00 86.183 kg [facility] [place] [facility] BMI 2020-06-12 16:04:00 28.89 kg/m2 [facility] [place] [facility] Oxygen saturation in 2020-06-12 16:04:00 97 /min [facility] of Arterial blood by [facility] Pulse oximetry Branch Systolic blood 2020-01-03 15:11:00 153 mm[Hg] Univer sity of pressure [place] [facility] Diastolic blood 2020-01-03 15:11:00 89 mm[Hg] Unive rsity of pressure [place] [facility] Heart rate 2020-01-03 15:11:00 88 /min [facility] [place] [facility] Body temperature 2020-01-03 15:11:00 37.33 [place] [facility] [place] [facility] Respiratory rate 2020-01-03 15:11:00 18 /min [facility] [place] [facility] Body weight 2020-01-03 15:11:00 86.183 kg [facility] [place] [facility] BMI 2020-01-03 15:11:00 28.89 kg/m2 [facility] [place] [facility] Oxygen saturation in 2020-01-03 15:11:00 98 /min University of Arterial blood by [facility] Pulse oximetry Branch Systolic blood 2020-01-03 15:11:00 153 mm[Hg] Univer sity of pressure [place] [facility] Diastolic blood 2020-01-03 15:11:00 89 mm[Hg] Unive rsity of pressure [facility] Heart rate 2020-01-03 15:11:00 88 /min [facility] [place] [facility] Body temperature 2020-01-03 15:11:00 37.33 [place] [facility] [place] [facility] Respiratory rate 2020-01-03 15:11:00 18 /min [facility] [place] [facility] Body weight 2020-01-03 15:11:00 86.183 kg [facility] [place] [facility] BMI 2020-01-03 15:11:00 28.89 kg/m2 [facility] [place] [facility] Oxygen saturation in 2020-01-03 15:11:00 98 /min [facility] of Arterial blood by [facility] Pulse oximetry Branch Systolic blood 2019-08-12 15:40:00 130 mm[Hg] Univer sity of pressure [facility] Diastolic blood 2019-08-12 15:40:00 81 mm[Hg] Unive rsity of pressure [facility] Heart rate 2019-08-12 15:40:00 86 /min [facility] Body temperature 2019-08-12 15:40:00 36.17 [place] [facility] Respiratory rate 2019-08-12 15:40:00 16 /min Univ [facility] [place] [facility] Body height 2019-08-12 15:40:00 172.7 cm [facility] Body weight 2019-08-12 15:40:00 87.998 kg [facility] [place] [facility] BMI 2019-08-12 15:40:00 29.50 kg/m2 [facility] [place] [facility] Systolic blood 2019-08-12 15:40:00 130 mm[Hg] Univer sity of pressure [facility] Diastolic blood 2019-08-12 15:40:00 81 mm[Hg] Unive rsity of pressure [facility] Heart rate 2019-08-12 15:40:00 86 /min [facility] [place] [facility] Body temperature 2019-08-12 15:40:00 36.17 [place] [facility] [place] [facility] Respiratory rate 2019-08-12 15:40:00 16 /min [facility] [place] [facility] Body height 2019-08-12 15:40:00 172.7 cm [facility] [place] [facility] Body weight 2019-08-12 15:40:00 87.998 kg [facility] [place] [facility] BMI 2019-08-12 15:40:00 29.50 kg/m2 [facility] [place] [facility] Systolic blood 2019-07-26 19:33:00 109 mm[Hg] Univer sity of pressure [facility] Diastolic blood 2019-07-26 19:33:00 72 mm[Hg] Unive rsity of pressure [facility] Heart rate 2019-07-26 19:33:00 71 /min [facility] [place] [facility] Body temperature 2019-07-26 19:33:00 36.78 [place] [facility] [place] [facility] Respiratory rate 2019-07-26 19:33:00 16 /min Univ ersity of [facility] Body height 2019-07-26 19:33:00 172.7 cm [facility] Body weight 2019-07-26 19:33:00 87.573 kg [facility] BMI 2019-07-26 19:33:00 29.36 kg/m2 [facility] Systolic blood 2019-07-26 19:33:00 109 mm[Hg] Univer sity of pressure [facility] Diastolic blood 2019-07-26 19:33:00 72 mm[Hg] Unive rsity of pressure [facility] Heart rate 2019-07-26 19:33:00 71 /min [facility] Body temperature 2019-07-26 19:33:00 36.78 [place] [facility] [place] [facility] Respiratory rate 2019-07-26 19:33:00 16 /min [facility] [place] [facility] Body height 2019-07-26 19:33:00 172.7 cm [facility] Body weight 2019-07-26 19:33:00 87.573 kg [facility] BMI 2019-07-26 19:33:00 29.36 kg/m2 [facility] Systolic blood 2019-04-21 21:30:00 126 mm[Hg] Univer sity of pressure [facility] Diastolic blood 2019-04-21 21:30:00 64 mm[Hg] Unive rsity of pressure [facility] Heart rate 2019-04-21 21:30:00 62 /min Universi ty of [facility] Body temperature 2019-04-21 21:30:00 36.5 [place] [facility] Respiratory rate 2019-04-21 21:30:00 18 /min Univ ersity of [facility] Oxygen saturation in 2019-04-21 21:30:00 99 /min University of Arterial blood by [facility] Pulse oximetry Branch Body height 2019-04-20 16:47:00 172.7 cm [facility] Body weight 2019-04-20 16:47:00 85.276 kg [facility] BMI 2019-04-20 16:47:00 28.59 kg/m2 [facility] [place] [facility] Systolic blood 2018-11-01 19:43:00 113 mm[Hg] Univer sity of pressure [facility] Diastolic blood 2018-11-01 19:43:00 67 mm[Hg] Unive rsity of pressure [facility] Heart rate 2018-11-01 19:43:00 87 /min [facility] Body temperature 2018-11-01 19:43:00 37.11 [place] [facility] Respiratory rate 2018-11-01 19:43:00 16 /min Univ [facility] of [facility] Body height 2018-11-01 19:43:00 172.7 cm Universi ty of [facility] Body weight 2018-11-01 19:43:00 77.111 kg [facility] BMI 2018-11-01 19:43:00 25.85 kg/m2 [facility] Procedures Procedure Date / Time Performing Clinician Source Performed NOTICE OF PRIVACY 2021-07-23 02:08:37 Doctor Unassigned, No [facility] CONSENT/REFUSAL FOR 2021-07-23 02:07:51 Doctor Unassigned, No [facility] [place] [facility] NOTICE OF PRIVACY 2021-06-24 21:03:18 Doctor Unassigned, No [facility] CONSENT/REFUSAL FOR 2021-06-24 21:03:07 Doctor Unassigned, No [facility] [place] [facility] XR CHEST 1 VW 2020-09-12 02:56:56 Rea Salmon [facility] POCT TEST 2020-09-12 02:09:00 Rea Salmon [facility] COVID-19 (ID NOW RAPID 2020-09-12 02:06:00 Rea Salmon [facility] ersity [facility] TESTING) Medical Branch CONSENT/REFUSAL FOR 2020-09-12 01:20:13 Doctor Unassigned, No [facility] [place] [facility] NOTICE OF PRIVACY 2020-06-12 15:58:15 Doctor Unassigned, No [facility] CONSENT/REFUSAL FOR 2020-06-12 15:58:03 Doctor Unassigned, No [facility] [place] [facility] [facility] NOTICE OF PRIVACY 2020-01-03 14:52:20 Doctor Unassigned, No [facility] CONSENT/REFUSAL FOR 2020-01-03 14:51:58 Doctor Unassigned, No [facility] [place] [facility]REAT[facility] POCT TEST 2019-07-26 20:23:00 [facility]ola [facility]upe [facility] WITH DIFFERENTIAL 2019-04-21 10:10:00 Yamel Diallo [facility] VENOUS CORD GAS 2019-04-20 23:48:00 Yamel Diallo [place] [facility] HB ABO GROUPING 2019-04-20 18:00:00 Yamel Diallo [facility] o f [facility] RHO (D) IMMUNE GLOBULIN 2019-04-20 18:00:00 Yamel Diallo [facility] CBC WITH DIFFERENTIAL 2019-04-20 17:57:00 Yamel Diallo [facility] HEPATITIS B SURFACE 2019-04-20 17:57:00 Yamel Diallo [facility] ANTIGEN [facility] ADC OR IVETH ONLY - 2019-04-20 17:57:00 Yamel Diallo [facility] RPR [facility] HIV 1/2 AG-AB WITH 2019-04-20 17:57:00 Yamel Diallo [facility] REFLEX [facility] CONSENT/REFUSAL FOR 2019-04-20 16:37:53 Doctor Unassigned, No [facility] DIAGNOSIS AND TREATMENT [facility] ASSIGNMENT OF BENEFITS 2019-04-20 16:37:37 Doctor Unassigned, No [facility] POCT TEST 2018-11-01 19:45:00 Anamaria Park [facility] POCT URINALYSIS W/O 2018-11-01 19:45:00 Anamaria Park [facility] SPECIFIC GRAVITY [facility] ASSIGNMENT OF BENEFITS 2018-11-01 19:06:50 Doctor Unassigned, No [facility] Encounters Start End Encounter Admission Attending Care Care Encounter Source Date/Time Date/Time Type Type Clinicians Facility Department ID 2021-01-14 Emergency [facility] [id number] [facility] 2021-01-13 [facility] [id number] Univers 09:29[facility] 2021-01-11 Emergency [facility] [id number] Univers 23:55[facility] 2021-07-22 2021-07-22 Emergency X LILY CASTILLO ERT [id number] Univers 21:31:00 22:44:00 BEN genao [facility] 2021-07-22 2021-07-22 César Castillo DCBANDAR [id number] Univers 21:31:00 22:44:00 Ben BANKS 350.1.13.10 i ty of [place] 4.2.7.2.686 [facility] [id number] [address] 2021-06-24 2021-06-24 Emergency X BARNES, [facility] ERT [id number] Univers 16:14:00 17:33:00 MITALI ity [facility] 2021-06-24 2021-06-24 Emergency [facility] 1.2.840.114 [id number] Univers 16:14:00 17:33:00 Mitali BANKS 350.1.13.10 i ty of [place] 4.2.7.2.686 [facility] [id number] [address] 2020-09-11 2020-09-11 Emergency ClaireRUST [id number] Univers 20:38:00 22:54:00 Rea Banks 350.1.13.10 ity of [place] 4.2.7.2.686 [facility] [id number] [address] 2020-09-11 2020-09-11 Orders Doctor KIM 1.2.840.114 [id number] Univers 00:00:00 00:00:00 Only Unassigned, SHYANN 350.1.13.10 ity of [place] [facility] 4.2.7.2.686 Eulogio [id number] [address] 2020-08-20 2020-08-20 Outpatient [facility] [id number] -[id number] Univers 10:30:00 10:30:00 [id number] ity [facility] 2020-08-20 2020-08-20 Outpatient Ever [facility] [id number] Univers 10:30:00 10:30:00 CHANELL genao [facility] 2020-07-02 2020-07-02 Outpatient R [facility] [id number] Univers 11:00:00 11:00:00 [id number] ity [facility] 2020-07-02 2020-07-02 Outpatient Ever [facility] [id number] Univers 11:00:00 11:00:00 CHANELL ity [facility] 2020-06-29 2020-06-29 Outpatient R [facility] [id number] -[id number] Univers 16:00:00 16:00:00 [id number] [facility] 2020-06-12 2020-06-12 Emergency [facility] 1.2.840.114 [id number] 11:05:00 11:12:00 Mitali [place]erton 350.1.13.10 [place] 4.2.7.2.686 [place] [id number] [facility] 2020-06-12 2020-06-12 Emergency [facility] 1.2.840.114 [id number] Univers 11:05:00 11:12:00 Mitali [place] 350.1.13.10 i ty of [place] [id number] [facility] [address] 2020-06-12 2020-06-12 Orders Doctor KIM 1.2.840.114 [id number] 00:00:00 00:00:00 Only Unassigned, SHYANN 350.1.13.10 [place] [facility] 4.2.7.2.686 [id number] 009 2020-06-12 2020-06-12 Orders Doctor KIM 1.2.840.114 [id number] Univers 00:00:00 00:00:00 Only Unassigned, SHYANN 350.1.13.10 ity of [place] [facility] 4.2.7.2.686 Eulogio as [id number] [facility] [address] 2020-06-05 2020-06-05 Patient EdwardRUST 1.2.840.114 [id number] 00:00:00 00:00:00 Outreach Miguel Angel PRIMARY 350.1.13.10 [place] [facility] 4.2.7.2.686 PAVILLION [id number] 388 2020-06-05 2020-06-05 Patient EdwardRUST 1.2.840.114 [id number] Univers 00:00:00 00:00:00 Outreach Miguel Angel PRIMARY 350.1.13.10 i ty of [place] [id number] Me dical [address] 2020-01-03 2020-01-03 Emergency Zulay, [facility] 1.2.840.114 [id number] 10:20:00 11:05:00 Emily Banks 350.1.13.10 [place] 4.2.7.2.686 [place] [id number] [facility] 2020-01-03 2020-01-03 Emergency Zulay, [facility] 1.2.840.114 [id number] [facility] 10:20:00 11:05:00 Emilyra Jad Banks 350.1.13.10 ity [facility] 4.2.7.2.686 [facility] [place] [id number] [address] 2020-01-03 2020-01-03 Telephone Linnette Jain 1.2.840.114 [id number] 00:00:00 00:00:00 SHYANN 350.1.13.10 [facility] 4.2.7.2.686 [id number] [facility] 2020-01-03 2020-01-03 Telephone Linnette Jain 1.2.840.114 [id number] [facility] 00:00:00 00:00:00 SHYANN 350.1.13.10 it y [facility] 4.2.7.2.686 Eulogio [id number] [address] 2019-11-04 2019-11-04 Outpatient [facility] [id number] -[id number] Univers 10:00:00 10:00:00 [id number] ity [facility] 2019-11-04 2019-11-04 Outpatient [facility] [id number] Univers 10:00:00 10:00:00 ity [facility] 2019-08-12 2019-08-12 Nurse Visit, [facility] 1.2.840.114 [id number] 10:14:36 10:29:36 Visit Dante [employer] SUPERINTENDENT 350.1.13.10 Nurse [facility] 4.2.7.2.686 MATERNAL [id number] & CHILD [address] [place] [address] 2019-08-12 2019-08-12 Nurse Visit, Dante Nurse [facility] 1.2 .840.114 [id number] [facility] 10:14:36 10:29:36 Visit Akinsipe, Yola C [employer]OWER SUPERINTENDENT 350.1.13. 10 ity of REGIONAL 4.2.7.2.686 Eulogio as MATERNAL [id number] [facility] ical & CHILD [address] [place] [address] 2019-08-12 2019-08-12 Outpatient R [facility] [id number] -[id number] Univers 10:00:00 10:00:00 [id number] ity of [facility] 2019-08-12 2019-08-12 [facility] [id number] Univers 10:00:00 10:00:00 YOLA ity o f [facility] 2019-08-12 2019-08-12 [facility] 1.2.840.114 [id number] [facility] 00:00:00 00:00:00 Yola C [employer] SUPERINTENDENT 350.1.13.10 ity of REGIONAL 4.2.7.2.686 Eulogio as MATERNAL [id number] Med ical & CHILD [address] [place] [address] 2019-08-12 2019-08-12 Case Collins [facility] 1.2.897.162 [id number] [facility] 00:00:00 00:00:00 Management Yola C [employer] SUPERINTENDENT 350.1.13.10 ity of REGIONAL 4.2.7.2.686 Eulogio as MATERNAL [id number] Med ical & CHILD [address] [place] [address] 2019-08-12 2019-08-12 Telephone GibsonnareshRUST 1.2.840.114 [id number] 00:00:00 00:00:00 Yola C [employer] POWER SUPERINTENDENT 350.1.13.10 [place] 4.2.7.2.686 MATERNAL [id number] & CHILD [address] [place] [address] 2019-08-12 2019-08-12 Case CollinsRUST 1.2.319.993 [id number] 00:00:00 00:00:00 Management Yola C [employer] SUPERINTENDENT 350.1.13.10 REG[place]AL 4.2.7.2.686 MATERNAL [id number] & CHILD [address] [place] [address] 2019-08-11 2019-08-11 Telephone CollinsRUST 1.2.840.114 [id number] [facility] 00:00:00 00:00:00 Yola C [employer] POWER SUPERINTENDENT 350.1.13.10 ity of REGIONAL 4.2.7.2.686 Eulogio as MATERNAL [id number] Med [facility] & CHILD [address] [place] [address] 2019-08-11 2019-08-11 Telephone [facility] 1.2.840.114 [id number] 00:00:00 00:00:00 Yola C [employer] POWER SUPERINTENDENT 350.1.13.10 REG[place] 4.2.7.2.686 MATERNAL [id number] & CHILD [address] [place] [address] 2019-07-26 2019-07-26 Office [facility] 1.2.752.000 [id number] Univers 14:00:18 15:22:03 Visit Yola C [employer]OWER SUPERINTENDENT 350.1.13.10 ity of [place] 4.2.7.2.686 Eulogio as MATERNAL [id number] [facility] & CHILD [address] [place] [address] 2019-07-26 2019-07-26 Office [facility] 1.2.779.085 [id number] 14:00:18 15:22:03 Visit Yola C [employer] POWER SUPERINTENDENT 350.1.13.10 [place] 4.2.7.2.686 MATERNAL [id number] & CHILD [address] [place] [address] 2019-07-26 2019-07-26 Outpatient [facility] [id number] Univers 14:15:00 14:15:00 YOLA [id number] ity o f [facility] 2019-07-26 2019-07-26 Outpatient R [facility] [id number] Univers 14:15:00 14:15:00 YOLA ity o f [facility] 2019-07-13 2019-07-13 Telephone [facility] 1.2.840.114 [id number] Univers 00:00:00 00:00:00 Anamaria N [employer] POWER SUPERINTENDENT 350.1.13.10 it y of REGIONAL 4.2.7.2.686 Eulogio as MATERNAL [id number] Med ical & CHILD [address] [place] [address] 2019-04-20 2019-04-21 [facility] Yamel Diallo [facility] 1.2.840.114 [id number] Univers 10:29:00 20:22:00 Encounter [facility] 350.1.13.10 ity of [place].2.[place] [id number] [facility] [address] 2019-04-20 2019-04-20 Telephone LILY Park 1.2.840.114 [id number] Univers 00:00:00 00:00:00 Anamaria N [employer] POWER SUPERINTENDENT 350.1.13.10 it y of [facility] 4.2.7.2.686 Eulogio as MATERNAL [id number] Med ical & CHILD [address] [place] [address] 2019-04-19 2019-04-19 Patient Doctor [facility] 1.2.840.114 [id number] Univers 00:00:00 00:00:00 Secure Msg Unassigned, STEAM AND POWER SUPERINTENDENT 350.1.13.10 ity of [place] REGIONAL 4.2.7.2.686 Eulogio as MATERNAL [id number] Med ical & CHILD [address] [place] [address] 2019-04-19 2019-04-19 Patient Doctor DCBANDAR 1.2.840.114 [id number] Univers 00:00:00 00:00:00 Secure Msg Unassigned, STEAM [employer] POWER SUPERINTENDENT 350.1.13.10 ity of [place] [facility] 4.2.7.2.686 Eulogio as MATERNAL [id number] Med ical & CHILD [address] [place] [address] 2018-11-03 2018-11-03 Telephone [place] 1.2.840.114 [id number] Univers 00:00:00 00:00:00 Anamaria Acosta STE[employer] POWER SUPERINTENDENT 350.1.13.10 it y of [facility] 4.2.7.2.686 Eulogio as MATERNAL [id number] Med ical & CHILD [address] [place] [address] 2018-11-01 2018-11-01 Initial Zulay [facility] 1.2.607.461 [id number] Univers 14:25:40 15:32:55 Anamaria N [employer] POWER SUPERINTENDENT 350.1.13.10 i ty of Visit [facility] 4.2.7.2.686 Eulogio as MATERNAL [id number] Med ical & CHILD [address] [place] [address] 2018-11-01 2018-11-01 Orders Doctor KIM 1.2.840.114 [id number] Univers 00:00:00 00:00:00 Only Unassigned, SHYANN 350.1.13.10 ity of [place] [facility] 4.2.7.2.686 Eulogio as [id number] [place] [address] Branch 2016-08-25 2016-08-25 Emergency E [facility] MED [id number] [address] 13:00:00 13:00:00 [facility] Results Test Description Test Time Test Comments Results Result Comments Source HCG, QUANTITATIVE 2021-07-25 05:46:32 Test Item Value Reference Range Interpretation Comme nts HCG, QUANTITATIVE (test code 176 MIU/ML SEE BELOW EXPECTED = 2506) VALUES FOR HCG GST.AGE UNITS RANGE GST. AGE UNITS R ANGE3 WEEKS MIU/ML 6-71 10 WEEKS MIU/ML 46,509-186,9774 WEEKS MIU/ML 10-750 12 WEEKS MIU/ ML 27,832-210,6125 WEEKS MIU/ML 217-7,138 14 WEEKS MIU/ ML 13,950-62,5306 WEEKS MIU/ML 158-31,795 15 WEEKS MIU/ ML 12,039-70,9717 WEEKS MIU/ML 3,697-163,563 16 WEEKS MIU/ ML 9,040-56,4518 WEEKS MIU/ML 32,065-149,571 17 WEEKS MIU/ ML 8,175-55,8689 WEEKS MIU/ML 63,803-151,410 18 WEEKS MIU/ ML 8,099-58,176MAL ES and NON- FEMALES . . . . . . . . MIU/ML 3-8KIJO-LFRWFTI ADEN FEMALES . . . . . . . . . . . . MIU/ML <=7 UNLESS OTHERWIS E INDICATED, ALL TESTING PERFORM ED ATCLINICAL PATHOLOGY LABOR [employer] [address] [place] [address] LABORATORY DIRE CTOR: LIBRADO ARCEO M.D. CLIA NUMBER [id number] [place]. [id number] XR CHEST 1 [id number] 03:41:35No acute pulmonary disease. RL: ?3201 History: cough Ordering Physician: REA SALMON COMPARISON:None FINDINGS: Single AP view the chest is provided. The trachea is midline. The cardiomediastinal silhouette is within normal limits. ?The lungs areclear. ?The costophrenic recesses are clear. [facility], Radiant Results Inft User - 09/11/2020 10:42 PM CDT History: cough Ordering Physician: REA SALMON COMPARISON:NoneFINDINGS: Single AP view the chest is provided. The trachea is midline. The cardiomediastinal silhouette is within normal limits. The lungs areclear. The costophrenic recesses are clear.IMPRESSIONNo acute pulmonary disease.RL: 3201 [facility] (ID NOW RAPID TESTING)2020-09-12 02:28:09 Test Item Value Reference Range Interpretation Comments SARS-CoV-2 Rapid ID NOW Not Detected Not Detected (test code = 13112-4) OMARI (test code = OMARI) ID NOW COVID-19 Assay is an isothermal nucleic acid amplification test intended for the qualitative detection of nucleic acid from SARS-CoV-2 viral RNA in nasopharyngeal (BULK STATION AGENT) specimens. It is used under Emergency Use [...] patient testing if clinically indicated. Lab Interpretation Normal (test code = 44961-5) [facility] [id number] 02:09:00 Test Item Value Reference Range Interpretation Comments POCT PREG (test code = 1605) negative On board controls acceptable with present C Line (test code = 3574) POCT PREG LOT # (test code = 3575) [id number] POCT PREG TEST DATE (test 03/15/2022 code = 3576) Lab Interpretation (test code = Normal 07957-6) [facility] [id number] 20:23:00 Test Item Value Reference Range Interpretation Comments POCT PREG (test code = 1605) Negative On board controls acceptable with C Yes Line (test code = 3574) POCT PREG LOT # (test code = 3575) POCT PREG TEST DATE (test code = 3576) [facility] [id number] 20:23:00 Test Item Value Reference Range Interpretation Comments POCT PREG (test code = 1605) Negative On board controls acceptable with C Yes Line (test code = 3574) POCT PREG LOT # (test code = 3575) POCT PREG TEST DATE (test code = 3576) [facility] WITH [id number] 10:36:00 Test Item Value Reference Range Interpretation Comments WBC (test code = See_Comment [Automated 6690-2) message] The sy stem which generated this result transmitted reference range : 4.30 - 11.10 10*3/?L. The reference range was not used to interpret this result as normal/abnormal . RBC (test code = See_Comment L [Automated 809-8) message] The sy stem which generated this [...] RDW-SD (test code = 42.5 fL 39-49.9 15584-4) RDW-CV (test code = 12.1 % 12-15.5 788-0) PLT (test code = See_Comment L [Automated 777-3) message] The sy stem which generated this result transmitted reference range : 166 - 358 10*3/ ?L. The reference r hugo was not used to interpret this result as normal/abnormal . MPV (test code = 10.4 fL 9.5-12.9 36846-9) NRBC/100 WBC (test See_Comment [Automat ed code = 9772112228) message] The system which generated this result transmitted reference range : 0.0 - 10.0 /100 WBCs. The refer ence range was not u sed to interpret th is result as normal/abnormal . NRBC x10^3 (test code <0.01 See_Comment [Auto mated = 3694798046) message] The s ystem which generated this result transmitted reference range : 10*3/?L. The reference range was not used to interpret this result as normal/abnormal . GRAN MAT (NEUT) % 64.8 % (test code = 770-8) IMM GRAN % (test code 0.80 % = 1861807938) LYMPH % (test code = 22.6 % 736-9) MONO % (test code = 10.4 % 5905-5) EOS % (test code = 1.1 % 713-8) BASO % (test code = 0.3 % 706-2) GRAN MAT x10^3(ANC) 7.01 10*3/uL 1.88-7.09 (test code = 1858410845) IMM GRAN x10^3 (test 0.09 10*3/uL 0-0.06 H code = 1527937418) LYMPH x10^3 (test code 2.45 10*3/uL 1.32-3.29 = 731-0) MONO x10^3 (test code 1.12 10*3/uL 0.33-0.92 H = 742-7) EOS x10^3 (test code = 0.12 10*3/uL 0.03-0.39 711-2) BASO x10^3 (test code 0.03 10*3/uL 0.01-0.07 = 704-7) Lab Interpretation Abnormal (test code = 85744-7) [facility]D) IMMUNE [id number] 03:46:32 Test Item Value Reference Range Interpretation Comments RHIG CANDIDATE? No- see comment Patient i s not a (test code = candidate for R hIg- 5055) Patient is Rh Positive.Perfor med at [facility] Laboratory Services - ADC Blood [address] [place] [address]Cvfz Free: [phone] A No. [id number] [facility] HospitalAD OR IVETH ONLY - [id number] 01:33:00 Test Item Value Reference Range Interpretation Comments RPR (Qualitative) (test code = Nonreactive Nonreactive 58025-3) Lab Interpretation (test code = Normal 64256-4) [facility] HospitalVenous Cord [id number] 23:57:00 Test Item Value Reference Range Interpretation Comments VENOUS BASE EXCESS, mEq/L CORD (test code = 5288187143) VENOUS PH, CORD (test 7.25-7.45 code = 5823141122) VENOUS PC02, CORD See_Comment [Automate d message] The (test code = system which ge nerated 8768998962) this result tra nsmitted reference range : 27 - 49 mmHg. The refer ence range was not used to interpret this result as normal/abnormal . VENOUS PO2, CORD (test See_Comment [Aut omated message] The code = 7685157075) system [facility] generated this result tra nsmitted reference range : 17 - 41 mmHg. The refer ence range was not used to interpret this result as normal/abnormal . VENOUS BICARBONATE, See_Comment [Automa sue message] The CORD (test code = system whi ch generated 3165302583) this result tra nsmitted reference range : 12 - 29 mEq/L. The refe rence range was not used to interpret this result as normal/abnormal . [facility] HospitalHepatitis B Surface [id number] 21:34:00 Test Item Value Reference Range Interpretation Comments HBsAg Semi-Quantitative (test code = Negative Negative 5195-3) [facility] HospitalHIV 1/2 AG-AB WITH [id number] 19:45:00 Test Item Value Reference Range Interpretation Comments HIV Negative Negative Semi-quantitative (test code = 69468-8) OMARI (test code = Non-reactive for HIV-1 OAMRI) antigen and HIV-1/HIV-2 antibodies. ?No laboratory evidence of HIV infection. ?Repeat in 2-4 weeks if acute HIV infection is suspected. [facility] HospitalType and Screen - ONCE [id number] 18:48:31 Test Item Value Reference Range Interpretation Comments ABO & RH (test code O Positive Performe d at [facility] = 20) Laboratory Serv [facility] Blood [facility]1 [address] [place], [place] [address]Toll Free: [phone] A No. [id number] IAT (test code = Negative Performed a t [facility] 1185) Laboratory Serv [facility] [address] [place], [place] [address]Toll Free: [phone] A No. [id number] [facility] HospitalCBC WITH [id number] 18:12:00 Test Item Value Reference Range Interpretation Comments WBC (test code = See_Comment [Automated 6690-2) message] The sy stem which generated this result transmitted reference range : 4.30 - 11.10 10*3/?L. The reference range was not used to interpret this result as normal/abnormal . RBC (test code = See_Comment L [Automated 719-8) message] The sy stem which generated this [...] RDW-SD (test code = 43.8 fL 39-49.9 31415-3) RDW-CV (test code = 12.4 % 12-15.5 788-0) PLT (test code = See_Comment L [Automated 777-3) message] The sy stem which generated this result transmitted reference range : 166 - 358 10*3/ ?L. The reference r hugo was not used to interpret this result as normal/abnormal . MPV (test code = 10.2 fL 9.5-12.9 51750-8) NRBC/100 WBC (test See_Comment [Automat ed code = 1721663227) message] The system which generated this result transmitted reference range : 0.0 - 10.0 /100 WBCs. The refer ence range was not u sed to interpret th is result as normal/abnormal . NRBC x10^3 (test code <0.01 See_Comment [Auto mated = 4417238262) message] The s ystem which generated this result transmitted reference range : 10*3/?L. The reference range was not used to interpret this result as normal/abnormal . GRAN MAT (NEUT) % 65.8 % (test code = 770-8) IMM GRAN % (test code 1.00 % = 9006305390) LYMPH % (test code = 22.2 % 736-9) MONO % (test code = 9.6 % 5905-5) EOS % (test code = 1.1 % 713-8) BASO % (test code = 0.3 % 706-2) GRAN MAT x10^3(ANC) 4.13 10*3/uL 1.88-7.09 (test code = 4559755569) IMM GRAN x10^3 (test 0.06 10*3/uL 0-0.06 code = 1376651463) LYMPH x10^3 (test code 1.39 10*3/uL 1.32-3.29 = 731-0) MONO x10^3 (test code 0.60 10*3/uL 0.33-0.92 = 742-7) EOS x10^3 (test code = 0.07 10*3/uL 0.03-0.39 711-2) BASO x10^3 (test code <0.03 0.01-0.07 = 704-7) Lab Interpretation Abnormal (test code = 69039-2) [facility] HospitalPOWI [id number] 19:45:00 Test Item Value Reference Range Interpretation Comments POCT PREG (test code = 1605) Positive On board controls acceptable with C Yes Line (test code = 3574) POCT PREG LOT # (test code = 3575) POCT PREG TEST DATE (test code = 3576) [facility] HospitalPOCT URINALYSIS W/O SPECIFIC [id number] 19:45:00 Test Item Value Reference Range Interpretation Comments POCT PH U (test code = 3254) 7 mg/dl 5-8 POCT U LEUK EST (test code = 1+ Negative - Negative 3263) POCT U NIT (test code = 3262) neg Negative - Negative POCT U PROT (test code = 3259) trace Negative - Negative POCT U GLU (test code = 3256) neg Negative - Negative POCT U KETONE (test code = 3258) 2+ Negative - Negative POCT U BLD (test code = 3257) neg Negative - Negative [facility] HospitalCB W/AUTO [id number] 20:53:00 Test Item Value Reference Range Interpretation [...] 0.0 x10 3/uL 0.0-0.1 N BASIC METABOLIC [id number] 20:11:00 Test Item Value Reference Range Interpretation [...] mg/dL 8.5-10.5 N = CA) LIVER FUNCTION [id number] 20:11:00 Test Item Value Reference Range Interpretation [...] code = 46 U/L 42-121 N ALKP) [id number] 20:11:00 Test Item Value Reference Range Interpretation Comments ALCOHOL (test code = 6 mg/dl Interpr etive Data:il: ALC) Ethanol Level To convert into le gal units, divide result b y 1,000 DRUGS OF ABUSE SCREEN [id number] 19:58:00 Test Item Value Reference Range Interpretation Comments UR COCAINE (test code NEGATIVE NEGATIVE This i s a toxicology = COCAU) qualitative scr eening test only. Ifconfirmatory testing is desired please request drug screenconf irmation. These results a re unconfirmed and should beused only for medical purposes. Cut-o ff concentration f or Cocaine is 300 ng/mLRec ommended screening cut-o ff concentrations by [facility] Ab use and Mental [facility]. UR CANABINOIDS (test POSITIVE NEGATIVE A This is a toxicology code = CANU) qualitative scr eening test only. Ifconfirmatory testing is desired please request drug screenconf irmation. These results a re unconfirmed and should beused only for medical purposes. Cut-o ff concentration f or THC is 50 ng/mLRecomme nded screening cut-o ff concentrations by [facility] use and [facility]. UR AMPHETAMINE (test POSITIVE NEGATIVE A [...] ng/mLRecommende d screening cut-o ff concentrations by [facility] use and [facility]. UR BARBITURATE (test NEGATIVE NEGATIVE This is a toxicology code = BARBQLU) qualitative screening test only. Ifconfirmatory testing is desired please request drug screenconf irmation. These results a re unconfirmed and should beused only for medical purposes. Cut-o ff concentration f or Barbiturates is 200 ng/mLRecommende d screening cut-o ff concentrations by [facility] use and [facility] Administration. UR BENZODIAZEPINE NEGATIVE NEGATIVE This is a toxicology (test code = BENZU) qualitat macho screening test only. Ifconfirmatory testing is desired please request drug screenconf irmation. These results a re unconfirmed and should beused only for medical purposes. Cut-o ff concentration f or Benzodiazepines is 200 ng/mLRecommende d screening cut-o ff concentrations by [facility] and [facility]. UR OPIATES QUAL (test NEGATIVE NEGATIVE This i s a toxicology code = OPIAQLU) qualitative screening test only. Ifconfirmatory testing is desired please request drug screenconf irmation. These results a re unconfirmed and should beused only for medical purposes. Cut-o ff concentration f or Opiates is 300 ng/mLRec ommended screening cut-o ff concentrations by [facility] Ab use and [facility] Administration. UR PHENCYCLIDINE NEGATIVE NEGATIVE This is a t oxicology (PCP) (test code = qualitati ve screening PHENCU) test only. Ifconfirmatory testing is desired please request drug screenconf irmation. These results a re unconfirmed and should beused only for medical purposes. Cut-o ff concentration f or PCP is 25 ng/mLRecomme nded screening cut-o ff concentrations by [facility] use and [facility] Administration. HCG SERUM [id number] 19:53:00 Test Item Value Reference Range Interpretation Comments HCG SERUM QUAL POSITIVE NEGATIVE This is a makayla litative (test code = HCGQL) screenin g test.The quantitative Bh cg may be helpful.Weakly positive results should be repeated in 48 hours. URINALYSIS [id number] 19:50:00 Test Item Value Reference Range Interpretation [...]
--- NOTE | 2021-07-25 17:04 | ER ---
Nurse's Notes [facility] Name: Tenzin Snider Age: 25 yrs Sex: Female : 1995 Arrival Date: 07/25/2021 Time: 14:26 Bed 25 Private MD: Diagnosis: Threatened Presentation: 07/25 14:50 Chief complaint: Patient states: today has been feeling very weak and losing a lot of iw blood, thinks she is having a miscarriage , had labs drawn yesterday. 14:52 Coronavirus screen: At this time, the client does not indicate any symptoms associated iw with coronavirus-19. Ebola Screen: Patient negative for fever greater than or equal to 101.5 degrees Fahrenheit, and additional compatible Ebola Virus Disease symptoms Patient denies exposure to infectious person. Patient denies travel to an Ebola-affected area in the 21 days before illness onset. No symptoms or risks identified at this time. Initial Sepsis Screen: Does the patient meet any 2 criteria? No. Patient's initial sepsis screen is negative. Does the patient have a suspected source of infection? No. Patient's initial sepsis screen is negative. Risk Assessment: Do you want to hurt yourself or someone else? Patient reports no desire to harm self or others. Onset of symptoms was July 25, 2021. 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 - Social history:: Smoking status: Patient denies any tobacco usage or history of. Patient/guardian denies using alcohol. Screenin:42 Abuse screen: Denies threats or abuse. Denies injuries from another. Nutritional ld1 screening: No deficits noted. Tuberculosis screening: No symptoms or risk factors identified. Fall Risk None identified. Assessment: 16:42 General: Appears in no apparent distress. comfortable, Behavior is calm, cooperative, ld1 appropriate for age. Pain: Denies pain. Neuro: Level of Consciousness is awake, alert, obeys commands, Oriented to person, place, time, situation. Cardiovascular: Capillary refill < 3 seconds Patient's skin is warm and dry. Respiratory: Airway is patent Respiratory effort is even, unlabored. GI: Abdomen is round non-distended. : Reports vaginal bleeding that is with clots. EENT: No signs and/or symptoms were reported regarding the EENT system. Derm: No signs and/or symptoms reported regarding the dermatologic system. Musculoskeletal: No signs and/or symptoms reported regarding the musculoskeletal system. Vital Signs: 14:58 BP 125 / 56; Pulse 73; Resp 16; Temp 98.6; Pulse Ox 100% on R/A; iw ED Course: 14:26 Patient arrived in ED. mr 14:31 Yan Andrea PA is PHCP. chetan 14:31 Tulio Edmonds DO is Attending Physician. clayton 14:52 Triage completed. iw 14:53 Arm band placed on. iw 15:35 Zuleyka Nieves, RN is Primary Nurse. ld1 16:42 Patient has correct armband on for positive identification. Placed in gown. Bed in low ld1 position. Call light in reach. Side rails up X2. monitor technician on. Pulse ox on. NIBP on. 16:42 No provider procedures requiring assistance completed. Missed attempt(s): 20 gauge in ld1 left antecubital area. 17:09 Patient did not have IV access during this emergency room visit. ld1 Administered Medications: No medications were administered Medication: 16:42 VIS not applicable for this client. ld1 Outcome: 17:03 Discharge ordered by MD. benton 17:09 Discharged to home ambulatory, with family. ld1 17:09 Condition: stable 17:09 Discharge instructions given to patient, family, Instructed on discharge instructions, follow up and referral plans. Demonstrated understanding of instructions, follow-up care. 17:09 Patient left the ED. ld1 Signatures: Yan Andrea PA PA jmm Rivera, Mary Chichi Park RN RN Zuleyka Nieevs, SERAFIN RN ld1
--- NOTE | 2021-07-25 17:04 | EDPHYS ---
Physician Documentation [facility] Name: Tenzin Snider Age: 25 yrs Sex: Female : 1995 Arrival Date: 07/25/2021 Time: 14:26 Bed 25 Private MD: ED Physician Tulio Edmonds HPI: 07/25 14:49 This 25 yrs old Black Female presents to ER via Wheelchair with complaints of Vaginal jmm Bleeding, + Preg <12wks, Vaginal Pain. 14:49 The patient presents to the emergency department with vaginal bleeding. jmm course: care: at a clinic. Associated signs and symptoms: Pertinent positives: vaginal bleeding. The patient has not experienced similar symptoms in the past, but family has similar symptoms. 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 - Social history:: Smoking status: Patient denies any tobacco usage or history of. Patient/guardian denies using alcohol. ROS: 14:49 Constitutional: Negative for fever, chills, and weight loss, Cardiovascular: Negative jmm for chest pain, palpitations, and edema, Respiratory: Negative for shortness of breath, cough, wheezing, and pleuritic chest pain, Abdomen/GI: Negative for abdominal pain, nausea, vomiting, diarrhea, and constipation. 14:49 : Positive for vaginal bleeding. 14:49 All other systems are negative. Exam: 14:49 Constitutional: This is a well developed, well nourished patient who is awake, alert, jmm and in no acute distress. Head/Face: atraumatic. Eyes: EOMI, no conjunctival erythema appreciated ENT: Moist Mucus Membranes Neck: Trachea midline, Supple Chest/axilla: Normal chest wall appearance and motion. Cardiovascular: Regular rate and rhythm. No edema appreciated Respiratory: Normal respirations, no respiratory distress appreciated Abdomen/GI: Non distended, soft Back: Normal ROM Skin: General appearance color normal MS/ Extremity: Moves all extremities, no obvious deformities appreciated, no edema noted to the lower extremities Neuro: Awake and alert Psych: Behavior is normal, Mood is normal, Patient is cooperative and pleasant Vital Signs: 14:58 BP 125 / 56; Pulse 73; Resp 16; Temp 98.6; Pulse Ox 100% on R/A; iw MDM: 14:49 Patient medically screened. [facility] 17:00 Data reviewed: vital signs, nurses notes. Counseling: I had a detailed discussion with chetan the patient and/or guardian regarding: the historical points, exam findings, and any diagnostic results supporting the discharge/admit diagnosis, the need for outpatient follow up, to return to the emergency department if symptoms worsen or persist or if there are any questions or concerns that arise at home. 07/25 15:23 Order name: NPO; Complete Time: 15:47 [facility] 07/25 17:02 Order name: Misc. Order: POC; Complete Time: 17:08 [facility] Administered Medications: No medications were administered Disposition: 22:13 Co-signature as Attending Physician, Tulio Edmonds DO I was immediately available on-site ms3 in the Emergency Department for consultation in the care of the patient.. Disposition Summary: 07/25/21 17:03 Discharge Ordered Location: Home [facility] Condition: Stable [facility] Diagnosis - Threatened [facility] Followup: [facility] - With: Private Physician - When: Tomorrow - Reason: Recheck today's complaints, Continuance of care, Re-evaluation by your physician Discharge Instructions: - Discharge Summary Sheet [facility] - Threatened Miscarriage [facility] Forms: - Medication Reconciliation Form [facility] - Thank You Letter [facility] - Antibiotic Education [facility] - Prescription Opioid Use [facility] Signatures: Dispatcher [employer] EDMS Yan Andrea PA PA Chichi Mckeon, RN Tulio Pang DO DO ms3 Zuleyka Nieves, RN RN ld1 Corrections: (The following items were deleted from the chart) 17: 15:23 IV Saline Lock ordered. [facility] ld1 17:08 15:23 Labs collected and sent ordered. [facility] 17: 15:23 Urine Dipstick-Ancillary ordered. [facility]
[2021-07-25 18:46] VITALS: BP 125/56; TEMP 98.6; O2SAT 100
== END 2021-07-25 17:09 | disposition home or self-care (01) ==
LOC: ER 14:23
DX: O20.0 Threatened abortion (principal); Z3A.00 Weeks of gestation of pregnancy not specified
CPT/HCPCS: 88305; 99284

== ENCOUNTER 2021-11-26 04:22 | Emergency (ER) | payer OTHER ==
--- OUTSIDE RECORDS SUMMARY | 2021-11-26 04:31 | XMS REPORT | Continuity of Care Document ---
:1995 Author Organization [facility] t Address [address] [place] [address] Care Team Providers Name Role Phone UNKNOWN, REFFERING Primary Care Physician Unavailable Doctor Unassigned, Mabie Attending Clinician Unavailable Donald BETANCOURT, Ligia Baird Attending Clinician LEONEL FOSTER Attending Clinician Unavailable Laurie Fiore MD Attending Clinician Leonel Miller MD Attending Clinician Britta Hopper MD Attending Clinician Leonel Foster MD Attending Clinician BEN CASTILLO Attending Clinician Unavailable Ben Lugo Attending Clinician MITALI ROSEN Attending Clinician Unavailable Mitali Poon Attending Clinician Claire BARDALES, Grace Capellan Attending Clinician CHANELL HOLT Attending Clinician Unavailable Miguel Angel Leon DO Attending Clinician Emily Biswas DO Attending Clinician Susy RN, Linnette M Attending Clinician Unavailable [facility] Attending Clinician Unavailable Heaven Hwang Attending Clinician [phone] HE[place]EN GUADALUPE Attending Clinician Unavailable Anamaria Ann Attending Clinician Yoel HERNÁNDEZ, Yamel Fischer Attending Clinician Eric Pérez Attending Clinician Leonel Ryan Attending Clinician LEONEL MILLER Admitting Clinician Unavailable Leonel Miller MD Admitting Clinician Yamel Diallo MD Admitting Clinician Leonel Ryan Admitting Clinician Payers Payer Name Policy Type Policy Number Effective Date Expiration Date Ivana ruiz [facility] [id number] 2017 00:00:00 PLUS Problems Condition Condition Condition Status Onset Resolution Last Treating Co mments Source Name Details Category Date Date Treatment Clinician Date Morbid Morbid Disease Active Univers obesity obesity 7-21 [place] of [place] mass index mass index 00 Me dical of of Branch 40.0-49.9 40.0-49.9 Psychosis, Psychosis, Disease Active U nivers unspecifie unspecifie 7-21 it y of d d 00:00: [place] psychosis psychosis 00 [facility] type type Branch Other Other Disease Active Univers general general 5-12 ity of counseling [place] and advice and advice 00 Me dical for for Branch contracept contracept macho macho management management Normal Normal Disease Active Univers labor labor 2-05 ity of 00:00: [place] 00 Medical Branch 40 weeks 40 weeks Disease Active Unive rs gestation gestation 2-05 ity of of of 00:00: [place] 00 [facility] Liveborn Liveborn Disease Active Unive rs infant, of , of 2-05 it y of resendez resendez 00:00: Emily phan , , 00 Me dical born in born in [facility] hospital by vaginal by vaginal delivery delivery Mood Mood Disease Active 2018-03 Methodi disorder disorder 05-12 00:00: Hospita 00 l Schizophre Schizophre Disease Active 2018-03 M corrina jaylen jaylen 05-08 st 00:00: Hospita 00 l Marijuana Marijuana Disease Active Uni vers use use 8-19 ity of 00:00: [place] [facility] High risk High risk Disease Active Uni vers , , 8-19 it y of antepartum antepartum [place] [facility] Multiparit Multiparit Disease Active U nivers y y 8- ity of 00:00: [facility] Tobacco Tobacco Disease Active Univers smoking smoking 8- ity of affecting affecting 00:00: Emily phan , , 00 Me dical antepartum antepartum Br anch Marijuana Marijuana Disease Active Uni vers use use 8-19 ity of 00:00: [facility] BMI BMI Disease Active 2017-03 Univers 29.0-29.9, 29.0-29.9, 2-20 it y of adult adult 00:00: [facility] BMI BMI Disease Active 2017-03 Univers 25.0-25.9, 25.0-25.9, 2-20 it y of adult adult 00:00: [facility] OTHERS OTHERS Diagnosis Active 2017-032017-12-23 Me moria Active 0-04 16:48:00 l 12/17/2017 00:00: Kavin blum 00 [facility] LABOR LABOR Diagnosis Active 2016-032017-01-06 Mem oria Active 0-24 12:15:00 l 01/06/2017 00:00: Kavin CASANOVA [address] VAGINAL VAGINAL Diagnosis Active 2016-032017-01-15 Memoria DELIVERY DELIVERY 0-24 15:32:00 l Active 00:00: [place] 01/06/2017 00 [facility] Disease Active Met hodi 1-15 st 00:00: Hospita 00 l Exposure Exposure Disease Active Unive rs to STD to STD 1-21 ity of 00:00: [facility] Bipolar Bipolar Disease Active 2012-03 Univers disorder disorder 2- ity of 00:00: [place] 00 Medical Branch Attention Attention Disease Active 2012-03 Overview: Univers deficit deficit 2- Formattin ity o f hyperactiv hyperactiv 00:00: g of this [place] ity ity 00 note Medical disorder disorder might be Bran ch (ADHD) (ADHD) different from the original. 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 Nicotine Nicotine Problem 2018-07-06 Memoria dependence dependence 16:23:35 l , , [place] cigarettes cigarettes , , uncomplica uncomplica sue sue 07/06/2018 [facility] Other Other Problem 2018-07-06 Memor ia mental mental 16:23:35 l disorders disorders Herm yasmany complicati complicati ng ng , , third third trimester trimester 07/06/2018 [facility] Bipolar Bipolar Problem 2018-07-06 Nh moria disorder, disorder, 16:23:35 l unspecifie unspecifie He rmann d d 07/06/2018 [facility] Anxiety Anxiety Problem 2018-07-06 Me moria disorder, disorder, 16:23:35 l unspecifie unspecifie He rmann d d 07/06/2018 [facility] Schizophre Schizophr Problem 2018-07-06 Memoria jaylen, enia, 16:23:35 l unspecifie unspecifie He rmann d d 07/06/2018 [facility] Illness, Illness, Problem 2017-01-11 Memoria unspecifie unspecifie 01:38:46 l d d [place] 01/11/2017 [facility] Anxiety Anxiety Problem Resolve 2018-07-06 Memoria (finding) (finding) d 16:23:35 l Resolved [place] Problem 07/06/2018 [facility] Chronic Chronic Problem Resolve 2018-07-06 M emoria schizophre schizophre d 16:23:35 l jaylen jaylen [place] (disorder) (disorder) Resolved Problem 07/06/2018 [facility] ILLNESS, ILLNESS, Diagnosis Active 2017-01-06 Memoria UNSPECIFIE UNSPECIFIE 12:15:00 l D D Active [place] [facility] ENCOUNTER ENCOUNTER Diagnosis Active 2017-01-15 Memoria FOR FOR 15:32:00 l FULL-TERM FULL-TERM Herm yasmany UNCOMPLICA UNCOMPLICA SUE DE SUE DE Active [facility] Smoking Smoking Problem 2018-07-06 Me moria (tobacco) (tobacco) 16:23:35 l complicati complicati He gabino sharp , , third third trimester trimester 07/06/2018 [facility] Patient Patient Problem Resolve 2016-0 2018-07-06 2018-07-06 Memoria currently currently d 4-10 16:23:35 16:23:35 l 00:00: Kavin blum (finding) (finding) 00 Resolved 06/24/2015 Problem 07/06/2018 [facility], [facility] History of Past Illness Condition Condition Condition Status Onset Resolution Last Treating Co mments Source Name Details Category Date Date Treatment Clinician Date Diseases Diseases Problem 2017-032018-07-06 2018-07-06 Memoria of the of the 0-10 16:23:35 16:23:35 l nervous nervous 03:43: [place] system system 35 complicati complicati aron sharp , , third third trimester trimester 12/23/2017 9 [facility] Peoples's Peoples's Problem 2017-032018-07-06 2018-07-06 Memoria palsy palsy 0-04 16:23:35 16:23:35 l 12/17/2017 05:00: Kavin blum 07/06/2018 00 [facility] 35 weeks 35 weeks Problem 2017-032018-07-06 2018-07-06 Memoria gestation gestation 0-04 16:23:35 16:23:35 l of of 05:00: [place] 00 12/17/2017 07/06/2018 [facility] Allergies, Adverse Reactions, Alerts Allergy Allergy Status Severity Reaction(s) Onset Inactive Treating Comm ents Source Name Type Date Date Clinician NO KNOWN Drug Active Univers ALLERGIE Class ity of S [facility] Social History Social Habit Start Date Stop Date Quantity Comments Source ASSERTION 2018-07-28 University of 00:00:00 [facility] History of Cigarette Smoker Universi ty of tobacco use [facility] Exposure to 2021-09-23 2021-10-03 Unable to assess Univers ity of SARS-CoV-2 00:00:00 00:01:00 [place] [facility] (event) Branch Alcohol intake 2021-06-24 2021-06-24 Current drinker Unive rsity of 00:00:00 00:00:00 of alcohol [place] [facility] (finding) Branch Tobacco use and 2018-11-01 2018-11-01 Smokeless tobacco Un iversity of exposure 00:00:00 00:00:00 non-user [facility] Tobacco Comment 2018-06-03 2018-06-03 smokes 3 Universit y of 00:00:00 00:00:00 cigarettes per [facility] day. Branch Social History 2017-12-18 2017-12-[address] [facility] Jorge guzman 01:18:03 01:18:03 Sex [birth year] At [birth year] [facility] Smoking Status Start Date Stop Date Source Tobacco smoking consumption [facility] unknown Smokes tobacco daily 2018-11-01 00:00:00 Univers ity [facility] Medications Ordered Filled Start Stop Current Ordering Indication Dosage Frequency Signature Comments Components Source Medication Medication Date Date Medication? Clinician (SIG) Name Name ARIPIPRAZOL Yes Take by Uni vers E ORAL 7-27 mouth. ity of 01:00: [address] SERTraline 2021-0 Yes 100mg Take 100 Un maria m 100 mg 7-27 mg by ity of tablet 01:00: mouth in [place] 04 the Medical morning. Branch ARIPIPRAZOL Yes Take by Uni vers E ORAL 7-25 mouth. ity of 15:32: [address] SERTraline 2021-0 Yes 100mg Take 100 Un maria m 100 mg 7-25 mg by ity of tablet 15:32: mouth in [place] [address] the Medical morning. Branch ARIPIPRAZOL Yes Take by Uni vers E ORAL 7-25 mouth. ity of 15:32: [address] SERTraline 2021-0 Yes 100mg Take 100 Un maria m 100 mg 7-25 mg by ity of tablet 15:32: mouth in [place] [address] the Medical morning. Branch thiamine 2021-0 Yes 100mg 100 mg, Unive rs (VITAMIN 7-25 Oral, ity of B1) tablet 14:00: DAILY, [place] 100 mg 00 First dose Medical (after Branch last modificati on) on Thu10/07/21 at 0900, Until Discontinu ed, Routine SERTraline 2021-0 Yes 100mg 100 mg, Uni vers (ZOLOFT) 7-25 Oral, ity of tablet 100 14:00: DAILY, [place] mg 00 First dose Medical (after Branch last modificati on) on [facility] 10/07/21 at 0900, Until Discontinu ed, Routine foLIC acid Yes 1mg 1 mg, Univer s (FOLATE) 10-07 Oral, ity of tablet 1 mg 14:00: DAILY, [place] 00 First dose Medical (after Branch last modificati on) on [facility] 10/07/21 at 0900, Until Discontinu ed, Routine ARIPiprazol Yes 2mg 2 mg, Unive rs e (ABILIFY) 10-07 Oral, ity of 1 mg/mL 14:00: DAILY, [place] oral 00 First dose Medical solution 2 (after Branch mg last modificati on) on Thu10/07/21 at 0900, Until Discontinu ed, Routine diphenhydrA 2021- No 25mg 25 mg, Uni vers MINE 10-07 Oral, ity of (BENADRYL) 05:16: 05:23 ONCE, 1 [place] tablet 25 00 :00 dose, On Medica l mg [facility] 10/07/21 at 0030, Routine midazolam 2021- No 1mg 1 mg, IV Uni vers (VERSED) 10-06 Push, ity of injection 1 22:15: 01:43 ONCE, 1 [place] mg 00 :00 dose, On Medical [facility] 10/06/21 at 1715, Routine haloperidol 2021- No 5mg 5 mg, Univ ers lactate 10-05 Intramuscu ity o f (HALDOL) 15:30: 11:16 lar, [place] injection 5 00 :14 TIDPRN, Medic al mg Starting Branch on 10/05/21 at 1030, Until [place] 10/06/21 at 0616, Routine, Psychosis phenoL Yes 1{spray 1 [place], Univ ers (SORE 10-05 } Oral, PRN, ity of THROAT 15:24: Starting [place] (PHENOL)) 12 on [facility] Medical 1.4 % spray 10/05/21 at Br anch bottle 1 1024, [place] Until Discontinu ed, Routine, Sore throat haloperidol 2021- No 5mg 5 mg, Univ ers lactate 10-05 Intramuscu ity o f (HALDOL) 13:00: 15:24 lar, TID, [place] as injection 5 00 :22 First dose Me dical mg on Sat Branch 10/05/21 at 0800, Until Discontinu ed, Routine Ketamine in No 50mg 50 mg, Uni vers Normal 10-05 Slow IV ity of Saline 50 03:00: 03:00 Push, [place] mg/5 mL (10 00 :00 ONCE, 1 Medic al mg/mL) dose, On Branch syringe 50 Fri mg 10/04/21 at 2200, Routine haloperidol No 5mg 5 mg, Univ ers lactate 10-04 Intramuscu ity o f (HALDOL) 19:00: 22:17 lar, Q8H, [place] as injection 5 00 :11 First dose Me dical mg on Thu Branch 10/04/21 at 1400, Until Discontinu ed, Routine buPROPion Yes 150mg 150 mg, Univ ers XL 10-04 Oral, ity of (WELLBUTRIN 14:00: DAILY, [place] XL) tablet 00 First dose Med ical 150 mg on Thu Branch 10/04/21 at 0900, Until Discontinu ed, Routine thiamine No 100mg 100 mg, Univ ers (VITAMIN 10-04 Enteral, ity of B1) tablet 14:00: 07:17 DAILY, [place] 100 mg 00 :46 First dose Medical (after Branch last modificati on) on Thu10/04/21 at 0900, Until Discontinu ed, Routine foLIC acid No 1mg 1 mg, Unive rs (FOLATE) 10-04 Enteral, ity of tablet 1 mg 14:00: 07:17 DAILY, [place] as 00 :46 First dose Medical (after Branch last modificati on) on Thu10/04/21 at 0900, Until Discontinu ed, Routine SERTraline No 100mg 100 mg, Un maria m (ZOLOFT) 10-04 Enteral, ity of tablet 100 14:00: 07:17 DAILY, [place] mg 00 :46 First dose Medical (after Branch last modificati on) on Thu10/04/21 at 0900, Until Discontinu ed, Routine Ketamine in No 50mg 50 mg, Uni vers Normal 10-04 Slow IV ity of Saline 50 13:00: 11:45 Push, [place] mg/5 mL (10 00 :00 ONCE, 1 Medic al mg/mL) dose, On Branch syringe 50 Fri mg 10/04/21 at 0800, Routine FENTanyl PF No 50ug 50 mcg, Un maria m (SUBLIMAZE 10-04 Slow IV ity o f (PF)) 05:30: 01:30 Push, [place] injection 00 :00 ONCE, 1 Medical 50 mcg dose, On Branch 10/04/21 at 0030, Routine etomidate No 20mg 20 mg, Unive rs (AMIDATE) 10-04 Slow IV ity of injection 04:52: 03:30 Push, [place] 20 mg 00 :00 ONCE, 1 Medical dose, On Branch 10/04/21 at 0000, STAT ipratropium 2021- No 3mL 3 mL, Univ ers -albuteroL 10-04 Inhalation it y of (DUONEB) 01:00: 13:39 , QID, [place] 0.5 mg-3 00 :25 First dose Medic al mg(2.5 mg on [place] Branch base)/3 mL 10/03/21 at nebulizer 1999, solution 3 Until mL Discontinu ed, Routine sodium 2021- No 4mL 4 mL, Univers chloride 7% 10-04 Inhalation i ty of (HYPER-ADEN) 01:00: 13:39 , TID, 6 [place] nebulizer 00 :25 doses, Medical solution 4 First dose Bra nch mL on Alexus 10/03/21 at 2000, Last dose on 10/05/21 at 1400, Routine ARIPiprazol 2021- No 2mg 2 mg, Univ ers e (ABILIFY) 10-03 Enteral, ity of 1 mg/mL 18:15: 07:17 DAILY, [place] oral 00 :46 First dose Medical solution 2 on [place] Branch mg 10/03/21 at 1315, Until Discontinu ed, Routine lactated 2021- No 1000mL at 125 Univ ers ringers IV 10-0321 mL/hr, ity of infusion 18:00: 18:17 1,000 mL, [place] as 1,000 mL 00 :00 IV Medical Infusion, Branch ONCE, 1 dose, On [place] 10/03/21 at 1300, Routine propofoL IV 2021- No 5ug/kg/ 5-50 Un maria m infusion 10-03 07-23 min mcg/kg/min ity of 14:38: 13:33 ?108.9 kg [place] 04 :12 (3.267-32. Medical 67 mL/hr, Branch rounded to 3.27-32.67 mL/hr), IV Infusion, TITRATE, Sedation-R ASS score (-2 to -3), Starting on Alex[place] 10/03/21 at 0938
In itiate infusion at 5 mcg/kg/min and titrate by 5 mcg/kg/min every 30 seconds to 10 minutes to goal sedation score. Maximum dose = 75 mcg/kg/min . If goal not maintained at maximum allowed dose, contact prescriber . &nbs p;Tubing and unused portions of vials should be discarded after 12 hours.
dexMEDEtomi 2021- No .2ug/kg 0.2-1.5 Univers dine 400 10-03 07-24 /h mcg/kg/hr ity o f mcg in 0.9 14:37: 17:44 ?108.9 kg [place] % NaCl 100 55 :11 (5.445-40. Med ical mL 8375 Branch (PRECEDEX) mL/hr, RTU IV rounded to infusion 5.45-40.84 mL/hr), IV Infusion, TITRATE, Sedation-R ASS score (-1 to -2), Starting on [place] 10/03/21 at 0937
In itiate infusion at 0.4 mcg/kg/hr and titrate by 0.1 mcg/kg/hr every 30 minutes to goal sedation score. Maximum dose = 1.5 mcg/kg/hr. If goal not maintained at maximum allowed dose, contact prescriber .
foLIC acid 2021- No 1mg 1 mg, Unive rs (FOLATE) 10-03 Oral, ity of tablet 1 mg 14:00: 13:15 DAILY, [place] as 00 :49 First dose Medical on [place] Branch 10/03/21 at 0900, Until Discontinu ed, Routine thiamine No 100mg 100 mg, Univ ers (VITAMIN 10-03 Oral, ity of B1) tablet 14:00: 13:15 DAILY, [place] 100 mg 00 :49 First dose Medical on [place] Branch 10/03/21 at 0900, Until Discontinu ed, Routine heparin Yes 5000U 5,000 Univers (porcine) 10-03 Units, ity of injection 13:00: Subcut[place]o [place] 5,000 Units 00 us, Q12H, Med ical First dose Branch on [place] 10/03/21 at 0800, Until Discontinu ed, Routine propofoL IV 2021- No 5ug/kg/ 5-50 Un maria m infusion 10-03 min mcg/kg/min ity of 08:21: 14:38 ?108.9 kg [place] 44 :51 (3.267-32. Medical 67 mL/hr, Branch rounded to 3.27-32.67 mL/hr), IV Infusion, TITRATE, Sedation-R ASS score (0 to -1), Starting on [place] 10/03/21 at 0321
In itiate infusion at 5 mcg/kg/min and titrate by 5 mcg/kg/min every 30 seconds to 10 minutes to goal sedation score. Maximum dose = 75 mcg/kg/min . If goal not maintained at maximum allowed dose, contact prescriber . &nbs p;Tubing and unused portions of vials should be discarded after 12 hours.
rocuronium No 100mg 100 mg, IV Univers (ZEMURON) 10-03 Push, ity of injection 06:45: 05:43 ONCE, 1 [place] 100 mg 00 :00 dose, On Medical [place] [facility] 10/03/21 at 0145, Routine
support team member approving Restricted medication : LAURIE FIORE dexMEDEtomi 2021- No .2ug/kg 0.2-1.5 Univers dine 400 10-03 /h mcg/kg/hr ity o f mcg in 0.9 06:33: 14:38 ?108.9 kg [place] % NaCl 100 03 :51 (5.445-40. Med ical mL 8375 Branch (PRECEDEX) mL/hr, RTU IV rounded to infusion 5.45-40.84 mL/hr), IV Infusion, TITRATE, Sedation-R ASS score (0 to -1), Starting on [place] 10/03/21 at 0133
In itiate infusion at 0.4 mcg/kg/hr and titrate by 0.1 mcg/kg/hr every 30 minutes to goal sedation score. Maximum dose = 1.5 mcg/kg/hr. If goal not maintained at maximum allowed dose, contact prescriber .
succinylcho 2021- No 100mg 100 mg, IV Univers line 10-03 Push, ity of (QUELICIN) 06:00: 03:40 ONCE, 1 [place] injection 00 :00 dose, On Medica l 100 mg [place] Branch 10/03/21 at 0100, Routine midazolam No 4mg 4 mg, IV Uni vers (VERSED) 10-03 Push, ity of injection 4 05:45: 05:44 ONCE, 1 [place] mg 00 :00 dose, On Medical [place] Branch 10/03/21 at 0045, STAT propofoL IV 2021- No 5ug/kg/ 5-50 Un maria m infusion 10-03 min mcg/kg/min ity of 04:43: 08:22 ?108.9 kg [place] 37 :46 (3.267-32. Medical 67 mL/hr, Branch rounded to 3.27-32.67 mL/hr), IV Infusion, TITRATE, Sedation-R ASS score (0 to -1), Starting on Thu10/02/21 at 2343
In itiate infusion at 5 mcg/kg/min and titrate by 5 mcg/kg/min every 30 seconds to 10 minutes to goal sedation score. Maximum dose = 50 mcg/kg/min . If goal not maintained at maximum allowed dose, contact prescriber . &nbs p;Tubing and unused portions of vials should be discarded after 12 hours.
LORazepam 2021- No 2mg 2 mg, Univer s (ATIVAN) 10-03 Intramuscu ity of injection 2 04:30: 03:30 lar, ONCE, [place] mg 00 :00 1 dose, On [facility] Branch 10/02/21 at 2330, STAT
Is the medication being used for status epilepticu s? No rocuronium 2021- No 100mg 100 mg, IV Univers (ZEMURON) 10-03 Push, ity of injection 03:55: 03:55 ONCE, 1 [place] 100 mg 00 :00 dose, On [facility] Branch 10/02/21 at 2300, Routine
support team member approving Restricted medication : LAURIE FIORE diphenhydrA 2021- No 50mg 50 mg, Uni vers MINE 10-03 Intramuscu ity of (BENADRYL) 03:30: 03:30 lar, ONCE, [place] injection 00 :00 1 dose, On [place]i [place] 50 mg [facility] Branch 10/02/21 at 2230, STAT haloperidol No 5mg 5 mg, Univ ers lactate 10-03 Intramuscu ity o f (HALDOL) 03:30: 06:17 lar, ONCE, [place] injection 5 00 :00 1 dose, On Me dical mg [facility] Branch 10/02/21 at 2230, STAT HYDROcodone 2021- No 1{tbl} 1 tablet, Univers -acetaminop 06-24 Oral, ONCE i ty of hen (NORCO) 23:15: 22:21 NOW, 1 [place] as 10-325 mg 00 :00 dose, On Medica l tablet 1 [facility] Branch tablet 06/24/21 at 1815, SONI ketorolac 2021- No 60mg 60 mg, Unive rs (TORADOL) 06-24 Intramuscu ity of injection 23:15: 22:22 lar, ONCE, [place] 60 mg 00 :00 1 dose, On [facility] Branch 06/24/21 at 1815, SONI amoxicillin 2021-0 2021- No 1{tbl} 1 tablet, Univers -clavulanat 06-24 Oral, ONCE i ty of e 23:15: 22:20 NOW, 1 [place] (AUGMENTIN) 00 :00 dose, On Medi [place] 875-125 mg Mon Branch per tablet 06/24/21 at 1 tablet 1815, SONI
Re ason for Anti-Infec tive: Documented Infection< br>Documen sue Infection Site: HEENT
D uration of Therapy: 7 days amoxicillin 2021- No [id number] 1{tbl} Take 1 Univers -clavulanat 06-24 tablet by it y of e 875-125 00:00: 04:59 mouth 2 [place] mg per 00 :00 (two) Medical tablet times Branch daily for 14 days. acetaminoph 2021- No [id number] 1{tbl} Take 1 U nivers en-codeine 06-24 tablet by ity of 300-30 mg 00:00: 04:59 mouth [place] tablet 00 :00 every 6 Medical (six) Branch hours as needed for Pain (scale 7-10) for up to 7 days. Indication s: acute pain predniSONE 2020- No 40mg 40 mg, [facility] ers (DELTASONE) 09-12 0630 Oral, ity of tablet 40 03:45: 02:57 ONCE, 1 [place] mg 00 :00 dose, Tue Medical 09/11/20 at Branch 2245, Routine ipratropium 2020- No 3mL 3 mL, Univ ers -albuteroL 09-12 06-30 Inhalation it y of (DUONEB) 03:45: 03:00 , ONCE, 1 [place] as 0.5 mg-3 00 :00 dose, Tue Medica l mg(2.5 mg 09/11/20 at [facility])/3 mL 2245, nebulizer Routine solution 3 mL benzonatate Yes [id number] 100mg Take 1 Univers 100 mg -29 capsule by ity of capsule 00:00: mouth 3 [place] 00 (three) Medical times Branch daily as needed for Cough. albuterol Yes [id number] 2{puff} Inhale 2 Univers 90 6-29 Puffs ity of mcg/actuati 00:00: every 4 [place] as on inhaler 00 (four) Medical hours as Branch needed for Wheezing or Shortness of Breath. methylPREDN 2020-0 Yes [id number] Take by Univers ISolone 4 6-29 mouth ity of mg tablets 00:00: SEE-INSTRU [place] 00 CTIONS. Medical follow Branch package directions benzonatate 2020-0 Yes [id number] 100mg Take 1 Univers 100 mg 6-29 capsule by ity of capsule 00:00: mouth 3 [place] (three) Medical times Branch daily as needed for Cough. albuterol 2020-0 Yes [id number] 2{puff} Inhale 2 Univers 90 6-29 Puffs ity of mcg/actuati 00:00: every 4 [place] as on inhaler 00 (four) Medical hours as Branch needed for Wheezing or Shortness of Breath. methylPREDN 2020-0 Yes [id number] Take by Univers ISolone 4 6-29 mouth ity of mg tablets 00:00: SEE-INSTRU [place] 00 CTIONS. Medical follow Branch package directions benzonatate 2020-0 Yes [id number] 100mg Take 1 Univers 100 mg 6-29 capsule by ity of capsule 00:00: mouth 3 (three) Medical times Branch daily as needed for Cough. albuterol 2020-0 Yes [id number] 2{puff} Inhale 2 Univers 90 6-29 Puffs ity of mcg/actuati 00:00: every 4 [place] as on inhaler 00 (four) Medical hours as Branch needed for Wheezing or Shortness of Breath. methylPREDN 2020-0 Yes [id number] Take by Univers ISolone 4 6-29 mouth ity of mg tablets 00:00: SEE-INSTRU [place] 00 CTIONS. Medical follow Branch package directions benzonatate 2020-0 Yes [id number] 100mg Take 1 Univers 100 mg 6-29 capsule by ity of capsule 00:00: mouth 3 (three) Medical times Branch daily as needed for Cough. albuterol 2020-0 Yes [id number] 2{puff} Inhale 2 Univers 90 6-29 Puffs ity of mcg/actuati 00:00: every 4 [place] as on inhaler 00 (four) Medical hours as Branch needed for Wheezing or Shortness of Breath. methylPREDN 2020-0 Yes [id number] Take by Univers ISolone 4 6-29 mouth ity of mg tablets 00:00: SEE-INSTRU [place] 00 CTIONS. Medical follow Branch package directions benzonatate 0 Yes [id number] 100mg Take 1 Univers 100 mg 6-29 capsule by ity of capsule 00:00: mouth 3 [place] 00 (three) Medical times Branch daily as needed for Cough. albuterol 2020-0 Yes [id number] 2{puff} Inhale 2 Univers 90 6-29 Puffs ity of mcg/actuati 00:00: every 4 [place] as on inhaler 00 (four) Medical hours as Branch needed for Wheezing or Shortness of Breath. methylPREDN 2020-0 Yes [id number] Take by Univers ISolone 4 6-29 mouth ity of mg tablets 00:00: SEE-INSTRU [place] 00 CTIONS. Medical follow Branch package directions benzonatate Yes [id number] 100mg Take 1 Univers 100 mg 6-29 capsule by ity of capsule 00:00: mouth 3 00 (three) Medical times Branch daily as needed for Cough. albuterol 0 Yes [id number] 2{puff} Inhale 2 [facility] 90 6-29 Puffs ity of mcg/actuati 00:00: every 4 [place] as on inhaler 00 (four) Medical hours as Branch needed for Wheezing or Shortness of Breath. methylPREDN 2020-0 Yes [id number] Take by [facility] ISolone 4 6-29 mouth ity of mg tablets 00:00: [place]-INSTRU [place] 00 CTIONS. Medical follow Branch package directions predniSONE 2019-03- No [id number] 50mg Take 5 [facility] 10 mg 0-20 10-26 tablets by ity of tablet 00:00: 04:59 mouth [place] 00 :00 daily for Medical 5 days. Branch predniSONE 2019-03 2020- No [id number] 50mg Take 5 [facility] 10 mg 0-20 10-26 tablets by ity of tablet 00:00: 04:59 mouth [place] 00 :00 daily for Medical 5 days. Branch medroxyPROG 2020- No 150mg Univ ers ESTERone 5-29 02-05 ity of (DEPO-PROVE 16:00: 16:59 [place] RA) 00 :00 Medical injection Branch 150 mg medroxyPROG 2020- No 150mg 150 mg, U nivers ESTERone 5-29 02-05 Intramuscu ity of (DEPO-PROVE 16:00: 16:59 lar, [place] RA) 00 :00 [id number], Medical injection 3 doses, Branch 150 mg First dose on Thu08/12/19 at 1100, Last dose on Thu01/27/20 at 1100, Routine medroxyPROG 2020- No 150mg Univ ers ESTERone 08-11 ity of (DEPO-PROVE 16:00: 16:59 [place] RA) 00 :00 Medical injection Branch 150 mg medroxyPROG 2020- No 150mg Univ ers ESTERone 08-11 ity of (DEPO-PROVE 16:00: 16:59 [place] RA) 00 :00 Medical injection Branch 150 mg medroxyPROG 2019- No 150mg 150 mg, U nivers ESTERone 04-21 02-06 Intramuscu ity of (DEPO-PROVE 16:30: 15:51 lar, ONCE, [place] RA) 00 :00 1 dose, Medical injection Alexus 04/21/19 Bran ch 150 mg at 1030, Routine rho(D) Yes 300ug 300 mcg, Univer s immune 2-06 Intramuscu ity of globulin 02:34: lar, ONCE, [place] as (RHOGAM) 09 For 1 Medical syringe 300 dose, Branch mcg Conditiona l, Routine HYDROcodone 0 Yes 1{tbl} 1 tablet, [facility] -acetaminop 2-06 Oral, ity of hen (NORCO 02:34: Q6HPRN, [place] 5) 5-325 mg 05 Starting [facility] tablet 1 Thu04/20/19 Branc h tablet at 2033, Until Discontinu ed, Routine, Pain (scale 7-10) ibuprofen 2019-0 Yes 600mg 600 mg, Univ ers (IBU) 2-06 Oral, ity of tablet 600 02:34: Q6HPRN, [place] mg 05 Starting Medical 04/20/19 Branch at 2033, Until Discontinu ed, Routine, Pain (scale 4-6) acetaminoph 2019-0 Yes 650mg 650 mg, Un maria m [...] Yes 4mg 4 mg, Slow [facility] (ZOFRAN 2-06 IV Push, ity of (PF)) 02:34: Q8HPRN, [place] injection 4 05 Starting [facility]i [facility] mg Thu04/20/19 Branch at 2033, Until Discontinu ed, Routine, Nausea and Vomiting (N/V) simethicone 2019-0 Yes 160mg 160 mg, Un maria m [...] Until Discontinu ed, Routine, Constipati on benzocaine- 2020-0 Yes Topical, Un maria m menthol 2-06 PRN, ity of (DERMOPLAST 02:34: [place] 20-0.5 % 05 Thu04/20/19 Med ical topical at 2033, Branch spray Until Discontinu ed, Routine, Perineum discomfort 2020-0 Yes [id number] 1{tbl} Take 1 [facility] vitamin 2-06 tablet by ity of w/FA tablet 00:00: mouth [place] 00 daily. Medical Branch docusate 2019-0 Yes [id number] 240mg Take 1 U nivers calcium 240 2-06 capsule by it y of mg capsule 00:00: mouth once [place] 00 daily as Medical needed for Branch Constipati on. ferrous 2020-0 Yes [id number] 325mg Take 1 Un maria m sulfate 325 2-06 tablet by ity of mg (65 mg 00:00: mouth 2 [place] iron) 00 (two) Medical tablet times Branch daily. ibuprofen 2020-0 Yes [id number] 600mg Take 1 [facility] 600 mg 2-06 tablet by ity of tablet 00:00: mouth [place] 00 every 6 Medical (six) Branch hours as needed for Pain (scale 1-3) or Pain (scale 4-6) (Pain). Take with food or milk. 2020-0 Yes [id number] 1{tbl} Take 1 [facility] vitamin 2-06 tablet by ity of w/FA tablet 00:00: mouth [place] 00 daily. Medical Branch docusate 2020-0 Yes [id number] 240mg Take 1 U nivers calcium 240 2-06 capsule by it y of mg capsule 00:00: mouth once [place] 00 daily as Medical needed for Branch Constipati on. ferrous 2020-0 Yes [id number] 325mg Take 1 Un maria m sulfate 325 2-06 tablet by ity of mg (65 mg 00:00: mouth 2 [place] iron) 00 (two) Medical tablet times Branch daily. ibuprofen 2020-0 Yes [id number] 600mg Take 1 [facility] 600 mg 2-06 tablet by ity of tablet 00:00: mouth [place] 00 every 6 Medical (six) Branch hours as needed for Pain (scale 1-3) or Pain (scale 4-6) (Pain). Take with food or milk. 2020-0 Yes [id number] 1{tbl} Take 1 [facility] vitamin 2-06 tablet by ity of w/FA tablet 00:00: mouth [place] 00 daily. Medical Branch docusate 2020-0 Yes [id number] 240mg Take 1 U nivers calcium 240 2-06 capsule by it y of mg capsule 00:00: mouth once [place] 00 daily as Medical needed for Branch Constipati on. ferrous 2020-0 Yes [id number] 325mg Take 1 Un maria m sulfate 325 2-06 tablet by ity of mg (65 mg 00:00: mouth 2 [place] iron) 00 (two) Medical tablet times Branch daily. ibuprofen 2020-0 Yes [id number] 600mg Take 1 [facility] 600 mg 2-06 tablet by ity of tablet 00:00: mouth [place] 00 every 6 Medical (six) Branch hours as needed for Pain (scale 1-3) or Pain (scale 4-6) (Pain). Take with food or milk. 2020-0 Yes [id number] 1{tbl} Take 1 [facility] vitamin 2-06 tablet by ity of w/FA tablet 00:00: mouth [place] 00 daily. Medical Branch docusate 2020-0 Yes [id number] 240mg Take 1 U nivers calcium 240 2-06 capsule by it y of mg capsule 00:00: mouth once [place] 00 daily as Medical needed for Branch Constipati on. ferrous 2020-0 Yes [id number] 325mg Take 1 Un maria m sulfate 325 2-06 tablet by ity of mg (65 mg 00:00: mouth 2 [place] iron) 00 (two) Medical tablet times Branch daily. ibuprofen 2020-0 Yes [id number] 600mg Take 1 [facility] 600 mg 2-06 tablet by ity of tablet 00:00: mouth [place] 00 every 6 Medical (six) Branch hours as needed for Pain (scale 1-3) or Pain (scale 4-6) (Pain). Take with food or milk. 2020-0 Yes [id number] 1{tbl} Take 1 [facility] vitamin 2-06 tablet by ity of w/FA tablet 00:00: mouth [place] 00 daily. Medical Branch docusate 2020-0 Yes [id number] 240mg Take 1 U nivers calcium 240 2-06 capsule by it y of mg capsule 00:00: mouth once [place] 00 daily as Medical needed for Branch Constipati on. ferrous 2020-0 Yes [id number] 325mg Take 1 Un maria m sulfate 325 2-06 tablet by ity of mg (65 mg 00:00: mouth 2 [place] iron) 00 (two) Medical tablet times Branch daily. ibuprofen 2020-0 Yes [id number] 600mg Take 1 [facility] 600 mg 2-06 tablet by ity of tablet 00:00: mouth [place] 00 every 6 Medical (six) Branch hours as needed for Pain (scale 1-3) or Pain (scale 4-6) (Pain). Take with food or milk. 2020-0 Yes [id number] 1{tbl} Take 1 [facility] vitamin 2-06 tablet by ity of w/FA tablet 00:00: mouth [place] 00 daily. Medical Branch docusate 2020-0 Yes [id number] 240mg Take 1 U nivers calcium 240 2-06 capsule by it y of mg capsule 00:00: mouth once [place] 00 daily as Medical needed for Branch Constipati on. ferrous 2020-0 Yes [id number] 325mg Take 1 Un maria m sulfate 325 2-06 tablet by ity of mg (65 mg 00:00: mouth 2 [place] iron) 00 (two) Medical tablet times Branch daily. ibuprofen 2020-0 Yes [id number] 600mg Take 1 [facility] 600 mg 2-06 tablet by ity of tablet 00:00: mouth [place] 00 every 6 Medical (six) Branch hours as needed for Pain (scale 1-3) or Pain (scale 4-6) (Pain). Take with food or milk. 2020-0 Yes [id number] 1{tbl} Take 1 [facility] vitamin 2-06 tablet by ity of w/FA tablet 00:00: mouth [place] 00 daily. Medical Branch docusate 2020-0 Yes [id number] 240mg Take 1 U nivers calcium 240 2-06 capsule by it y of mg capsule 00:00: mouth once [place] 00 daily as Medical needed for Branch Constipati on. ferrous 2020-0 Yes [id number] 325mg Take 1 Un mar[facility] m sulfate 325 2-06 tablet by ity of mg (65 mg 00:00: mouth 2 [place] iron) 00 (two) Medical tablet times Branch daily. ibuprofen 2020-0 Yes [id number] 600mg Take 1 [facility] 600 mg 2-06 tablet by ity of tablet 00:00: mouth [place] 00 every 6 Medical (six) Branch hours as needed for Pain (scale 1-3) or Pain (scale 4-6) (Pain). Take with food or milk. 2020-0 Yes [id number] 1{tbl} Take 1 [facility] vitamin 2-06 tablet by ity of w/FA tablet 00:00: mouth [place] 00 daily. Medical Branch docusate 2020-0 Yes [id number] 240mg Take 1 U nivers calcium 240 2-06 capsule by it y of mg capsule 00:00: mouth once [place] 00 daily as Medical needed for Branch Constipati on. ferrous 2020-0 Yes [id number] 325mg Take 1 [facility] sulfate 325 2-06 tablet by ity of mg (65 mg 00:00: mouth 2 [place] iron) 00 (two) Medical tablet times Branch daily. ibuprofen 2020-0 Yes [id number] 600mg Take 1 [facility] 600 mg 2-06 tablet by ity of tablet 00:00: mouth [place] 00 every 6 Medical (six) Branch hours as needed for Pain (scale 1-3) or Pain (scale 4-6) (Pain). Take with food or milk. 2020-0 Yes [id number] 1{tbl} Take 1 [facility] vitamin 2-06 tablet by ity of w/FA tablet 00:00: mouth [place] 00 daily. Medical Branch docusate 2020-0 Yes [id number] 240mg Take 1 U nivers calcium 240 2-06 capsule by it y of mg capsule 00:00: mouth once [place] 00 daily as Medical needed for Branch Constipati on. ferrous 2020-0 Yes [id number] 325mg Take 1 Un mar[facility] m sulfate 325 2-06 tablet by ity of mg (65 mg 00:00: mouth 2 [place] iron) 00 (two) Medical tablet times Branch daily. ibuprofen 2020-0 Yes [id number] 600mg Take 1 [facility] 600 mg 2-06 tablet by ity of tablet 00:00: mouth [place] 00 every 6 Medical (six) Branch hours as needed for Pain (scale 1-3) or Pain (scale 4-6) (Pain). Take with food or milk. 2020-0 Yes [id number] 1{tbl} Take 1 [facility] vitamin 2-06 tablet by ity of w/FA tablet 00:00: mouth [place] 00 daily. Medical Branch docusate 2020-0 Yes [id number] 240mg Take 1 U nivers calcium 240 2-06 capsule by it y of mg capsule 00:00: mouth once [place] 00 daily as Medical needed for Branch Constipati on. ferrous 2020-0 Yes [id number] 325mg Take 1 [facility] mar[facility] m sulfate 325 2-06 tablet by ity of mg (65 mg 00:00: mouth 2 [place] iron) 00 (two) Medical tablet times Branch daily. ibuprofen 2020-0 Yes [id number] 600mg Take 1 [facility] 600 mg 2-06 tablet by ity of tablet 00:00: mouth [place] 00 every 6 Medical (six) Branch hours as needed for Pain (scale 1-3) or Pain (scale 4-6) (Pain). Take with food or milk. 2020-0 Yes [id number] 1{tbl} Take 1 [facility] vitamin 2-06 tablet by ity of w/FA tablet 00:00: mouth [place] 00 daily. Medical Branch docusate 2020-0 Yes [id number] 240mg Take 1 U nivers calcium 240 2-06 capsule by it y of mg capsule 00:00: mouth once [place] 00 daily as Medical needed for Branch Constipati on. ferrous 2020-0 Yes [id number] 325mg Take 1 Un mar[facility] m sulfate 325 2-06 tablet by ity of mg (65 mg 00:00: mouth 2 [place] iron) 00 (two) Medical tablet times Branch daily. ibuprofen 2020-0 Yes [id number] 600mg Take 1 [facility] 600 mg 2-06 tablet by ity of tablet 00:00: mouth [place] 00 every 6 Medical (six) Branch hours as needed for Pain (scale 1-3) or Pain (scale 4-6) (Pain). Take with food or milk. 2019-0 Yes [id number] 1{tbl} Take 1 [facility] vitamin 2-06 tablet by ity of w/FA tablet 00:00: mouth [place] 00 daily. Medical Branch docusate 2019-0 Yes [id number] 240mg Take 1 U nivers calcium 240 2-06 capsule by it y of mg capsule 00:00: mouth once [place] 00 daily as Medical needed for Branch Constipati on. ferrous 2020-0 Yes [id number] 325mg Take 1 Un mar[facility] m sulfate 325 2-06 tablet by ity of mg (65 mg 00:00: mouth 2 [place] iron) 00 (two) Medical tablet times Branch daily. ibuprofen 2020-0 Yes [id number] 600mg Take 1 [facility] 600 mg 2-06 tablet by ity of tablet 00:00: mouth [place] 00 every 6 Medical (six) Branch hours as needed for Pain (scale 1-3) or Pain (scale 4-6) (Pain). Take with food or milk. 2019-0 Yes [id number] 1{tbl} Take 1 [facility] vitamin 2-06 tablet by ity of w/FA tablet 00:00: mouth [place] 00 daily. Medical Branch docusate 2019-0 Yes [id number] 240mg Take 1 U nivers calcium 240 2-06 capsule by it y of mg capsule 00:00: mouth once [place] 00 daily as Medical needed for Branch Constipati on. ferrous 2020-0 Yes [id number] 325mg Take 1 Un mar[facility] m sulfate 325 2-06 tablet by ity of mg (65 mg 00:00: mouth 2 [place] iron) 00 (two) Medical tablet times Branch daily. ibuprofen 2020-0 Yes [id number] 600mg Take 1 [facility] 600 mg 2-06 tablet by ity of tablet 00:00: mouth [place] 00 every 6 Medical (six) Branch hours as needed for Pain (scale 1-3) or Pain (scale 4-6) (Pain). Take with food or milk. 2019-0 Yes [id number] 1{tbl} Take 1 [facility] vitamin 2-06 tablet by ity of w/FA tablet 00:00: mouth [place] 00 daily. Medical Branch docusate 2020-0 Yes [id number] 240mg Take 1 U nivers calcium 240 2-06 capsule by it y of mg capsule 00:00: mouth once [place] 00 daily as Medical needed for Branch Constipati on. ferrous 2020-0 Yes [id number] 325mg Take 1 Un mar[facility] m sulfate 325 2-06 tablet by ity of mg (65 mg 00:00: mouth 2 [place] iron) 00 (two) Medical tablet times Branch daily. ibuprofen 2020-0 Yes [id number] 600mg Take 1 [facility] 600 mg 2-06 tablet by ity of tablet 00:00: mouth [place] 00 every 6 Medical (six) Branch hours as needed for Pain (scale 1-3) or Pain (scale 4-6) (Pain). Take with food or milk. 2020-0 Yes [id number] 1{tbl} Take 1 [facility] vitamin 2-06 tablet by ity of w/FA tablet 00:00: mouth [place] 00 daily. Medical Branch docusate 2020-0 Yes [id number] 240mg Take 1 U nivers calcium 240 2-06 capsule by it y of mg capsule 00:00: mouth once [place] 00 daily as Medical needed for Branch Constipati on. ferrous 2020-0 Yes [id number] 325mg Take 1 Un [facility] m sulfate 325 2-06 tablet by ity of mg (65 mg 00:00: mouth 2 [place] iron) 00 (two) Medical tablet times Branch daily. ibuprofen 2020-0 Yes [id number] 600mg Take 1 [facility] 600 mg 2-06 tablet by ity of tablet 00:00: mouth [place] 00 every 6 Medical (six) Branch hours as needed for Pain (scale 1-3) or Pain (scale 4-6) (Pain). Take with food or milk. 2020-0 Yes [id number] 1{tbl} Take 1 [facility] vitamin 2-06 tablet by ity of w/FA tablet 00:00: mouth [place] 00 daily. Medical Branch docusate 2020-0 Yes [id number] 240mg Take 1 U nivers calcium 240 2-06 capsule by it y of mg capsule 00:00: mouth once [place] 00 daily as Medical needed for Branch Constipati on. ferrous 2020-0 Yes [id number] 325mg Take 1 Un mar[facility] m sulfate 325 2-06 tablet by ity of mg (65 mg 00:00: mouth 2 [place] iron) 00 (two) Medical tablet times Branch daily. ibuprofen 2020-0 Yes [id number] 600mg Take 1 [facility] 600 mg 2-06 tablet by ity of tablet 00:00: mouth [place] 00 every 6 Medical (six) Branch hours as needed for Pain (scale 1-3) or Pain (scale 4-6) (Pain). Take with food or milk. 2020-0 Yes [id number] 1{tbl} Take 1 [facility] vitamin 2-06 tablet by ity of w/FA tablet 00:00: mouth [place] 00 daily. Medical Branch docusate 2020-0 Yes [id number] 240mg Take 1 U nivers calcium 240 2-06 capsule by it y of mg capsule 00:00: mouth once [place] 00 daily as Medical needed for Branch Constipati on. ferrous 2020-0 Yes [id number] 325mg Take 1 Un mar[facility] m sulfate 325 2-06 tablet by ity of mg (65 mg 00:00: mouth 2 [place] iron) 00 (two) Medical tablet times Branch daily. ibuprofen 2020-0 Yes [id number] 600mg Take 1 [facility] 600 mg 2-06 tablet by ity of tablet 00:00: mouth [place] 00 every 6 Medical (six) Branch hours as needed for Pain (scale 1-3) or Pain (scale 4-6) (Pain). Take with food or milk. 2020-0 Yes [id number] 1{tbl} Take 1 [facility] vitamin 2-06 tablet by ity of w/FA tablet 00:00: mouth [place] 00 daily. Medical Branch docusate 2020-0 Yes [id number] 240mg Take 1 U nivers calcium 240 2-06 capsule by it y of mg capsule 00:00: mouth once [place] 00 daily as Medical needed for Branch Constipati on. ferrous 2020-0 Yes [id number] 325mg Take 1 Un mar[facility] m sulfate 325 2-06 tablet by ity of mg (65 mg 00:00: mouth 2 [place] iron) 00 (two) Medical tablet times Branch daily. 2019-0 Yes [id number] 1{tbl} Take 1 [facility] vitamin 2-06 tablet by ity of w/FA tablet 00:00: mouth [place] 00 daily. Medical Branch docusate 2019- Yes [id number] 240mg Take 1 U nivers calcium 240 2-06 capsule by it y of mg capsule 00:00: mouth once [place] 00 daily as Medical needed for Branch Constipati on. ferrous 2019-0 Yes [id number] 325mg Take 1 Un maria m sulfate 325 2-06 tablet by ity of mg (65 mg 00:00: mouth 2 [place] iron) 00 (two) Medical tablet times Branch daily. 2019-0 Yes [id number] 1{tbl} Take 1 [facility] vitamin 2-06 tablet by ity of w/FA tablet 00:00: mouth [place] 00 daily. Medical Branch docusate Yes [id number] 240mg Take 1 U nivers calcium 240 2-06 capsule by it y of mg capsule 00:00: mouth once [place] 00 daily as Medical needed for Branch Constipati on. ferrous 2019- Yes [id number] 325mg Take 1 Un mar[facility] m sulfate 325 2-06 tablet by ity of mg (65 mg 00:00: mouth 2 [place] iron) 00 (two) Medical tablet times Branch daily. ibuprofen 2019-2021- No [id number] 600mg Take 1 [facility] 600 mg 2-06 07-25 tablet by ity of tablet 00:00: 00:00 mouth [place] 00 :00 every 6 Medical (six) Branch hours as needed for Pain (scale 1-3) or Pain (scale 4-6) (Pain). Take with food or milk. D5W-LR IV 2019- No 1000mL at 125 Uni vers infusion 04-20 02-06 mL/hr, IV ity o f 1,000 mL 17:30: 02:34 Infusion, [place] as 00 :10 CONTINUOUS Medical , Starting Branch Thu04/20/19 at 1130, Until Thu04/20/19 at 2033, Routine FENTanyl PF 2019- No 100ug 100 mcg, Univers (SUBLIMAZE 04-20 02-06 Slow IV ity o f (PF)) 17:21: 02:34 Push, [place] injection 39 :10 Q1HPRN, Medical 100 mcg Starting Branch Thu04/20/19 at 1121, Until Thu04/20/19 at 2033, Routine, contractio n pain without an epidural and SVE < 8 cm and Cat I strip PNV 67-iron Yes [id number] 1{capsu Take 1 [facility] ps-folate 8-19 le} capsule by ity of no.1-dha 00:00: mouth [place] (VITAFOL 00 daily. Medical ULTRA) 29 Branch mg iron- 1 mg-200 mg Cap PNV 67-iron Yes [id number] 1{capsu Take 1 [facility] ps-folate 8-19 le} capsule by ity of no.1-dha 00:00: mouth [place] (VITAFOL 00 daily. Medical ULTRA) 29 Branch mg iron- 1 mg-200 mg Cap PNV 67-iron Yes [id number] 1{capsu Take 1 [facility] ps-folate 8-19 le} capsule by ity of no.1-dha 00:00: mouth [place] (VITAFOL 00 daily. Medical ULTRA) 29 Branch mg iron- 1 mg-200 mg Cap PNV 67-iron Yes [id number] 1{capsu Take 1 [facility] ps-folate 8-19 le} capsule by ity of no.1-dha 00:00: mouth [place] (VITAFOL 00 daily. Medical ULTRA) 29 Branch mg iron- 1 mg-200 mg Cap PNV 67-iron Yes [id number] 1{capsu Take 1 [facility] ps-folate 8-19 le} capsule by ity of no.1-dha 00:00: mouth [place] (VITAFOL 00 daily. Medical ULTRA) 29 Branch mg iron- 1 mg-200 mg Cap PNV 67-iron Yes [id number] 1{capsu Take 1 [facility] ps-folate 8-19 le} capsule by ity of no.1-dha 00:00: mouth [place] (VITAFOL 00 daily. Medical ULTRA) 29 Branch mg iron- 1 mg-200 mg Cap PNV 67-iron 2019-0 Yes [id number] 1{capsu Take 1 [facility] ps-folate 8-19 le} capsule by ity of no.1-dha 00:00: mouth [place] (VITAFOL 00 daily. Medical ULTRA) 29 Branch mg iron- 1 mg-200 mg Cap PNV 67-iron 2019-0 Yes [id number] 1{capsu Take 1 [facility] ps-folate 8-19 le} capsule by ity of no.1-dha 00:00: mouth [place] (VITAFOL 00 daily. Medical ULTRA) 29 Branch mg iron- 1 mg-200 mg Cap PNV 67-iron 2019-0 Yes [id number] 1{capsu Take 1 [facility] ps-folate 8-19 le} capsule by ity of no.1-dha 00:00: mouth [place] (VITAFOL 00 daily. Medical ULTRA) 29 Branch mg iron- 1 mg-200 mg Cap PNV 67-iron 2019-0 Yes [id number] 1{capsu Take 1 [facility] ps-folate 8-19 le} capsule by ity of no.1-dha 00:00: mouth [place] (VITAFOL 00 daily. Medical ULTRA) 29 Branch mg iron- 1 mg-200 mg Cap PNV 67-iron 2019-0 Yes [id number] 1{capsu Take 1 [facility] ps-folate 8-19 le} capsule by ity of no.1-dha 00:00: mouth [place] (VITAFOL 00 daily. Medical ULTRA) 29 Branch mg iron- 1 mg-200 mg Cap PNV 67-iron 2019-0 Yes [id number] 1{capsu Take 1 [facility] ps-folate 8-19 le} capsule by ity of no.1-dha 00:00: mouth [place] (VITAFOL 00 daily. Medical ULTRA) 29 Branch mg iron- 1 mg-200 mg Cap PNV 67-iron 2019-0 Yes [id number] 1{capsu Take 1 [facility] ps-folate 8-19 le} capsule by ity of no.1-dha 00:00: mouth [place] (VITAFOL 00 daily. Medical ULTRA) 29 Branch mg iron- 1 mg-200 mg Cap PNV 67-iron 2019-0 Yes [id number] 1{capsu Take 1 [facility] ps-folate 8-19 le} capsule by ity of no.1-dha 00:00: mouth [place] (VITAFOL 00 daily. Medical ULTRA) 29 Branch mg iron- 1 mg-200 mg Cap PNV 67-iron 2019-0 Yes [id number] 1{capsu Take 1 [facility] ps-folate 8-19 le} capsule by ity of no.1-dha 00:00: mouth [place] (VITAFOL 00 daily. Medical ULTRA) 29 Branch mg iron- 1 mg-200 mg Cap PNV 67-iron 2019-0 Yes [id number] 1{capsu Take 1 [facility] ps-folate 8-19 le} capsule by ity of no.1-dha 00:00: mouth [place] (VITAFOL 00 daily. Medical ULTRA) 29 Branch mg iron- 1 mg-200 mg Cap PNV 67-iron 2019-0 Yes [id number] 1{capsu Take 1 [facility] ps-folate 8-19 le} capsule by ity of no.1-dha 00:00: mouth [place] (VITAFOL 00 daily. Medical ULTRA) 29 Branch mg iron- 1 mg-200 mg Cap PNV 67-iron 2019-0 Yes [id number] 1{capsu Take 1 [facility] ps-folate 8-19 le} capsule by ity of no.1-dha 00:00: mouth [place] (VITAFOL 00 daily. Medical ULTRA) 29 Branch mg iron- 1 mg-200 mg Cap PNV 67-iron 2019-0 Yes [id number] 1{capsu Take 1 [facility] ps-folate 8-19 le} capsule by ity of no.1-dha 00:00: mouth [place] (VITAFOL 00 daily. Medical ULTRA) 29 Branch mg iron- 1 mg-200 mg Cap PNV 67-iron 2019-0 Yes [id number] 1{capsu Take 1 [facility] ps-folate 8-19 le} capsule by ity of no.1-dha 00:00: mouth [place] (VITAFOL 00 daily. Medical ULTRA) 29 Branch mg iron- 1 mg-200 mg Cap PNV 67-iron 2019-0 Yes [id number] 1{capsu Take 1 [facility] ps-folate 8-19 le} capsule by ity of no.1-dha 00:00: mouth [place] (VITAFOL 00 daily. Medical ULTRA) 29 Branch mg iron- 1 mg-200 mg Cap PNV 67-iron 2019-0 Yes [id number] 1{capsu Take 1 [facility] ps-folate 8-19 le} capsule by ity of no.1-dha 00:00: mouth [place] (VITAFOL 00 daily. Medical ULTRA) 29 Branch mg iron- 1 mg-200 mg Cap PNV 67-iron 2019-0 Yes [id number] 1{capsu Take 1 [facility] ps-folate 8-19 le} capsule by ity of no.1-dha 00:00: mouth [place] (VITAFOL 00 daily. Medical ULTRA) 29 Branch mg iron- 1 mg-200 mg Cap PNV 67-iron 2019- Yes [id number] 1{capsu Take 1 [facility] ps-folate 8-19 le} capsule by ity of no.1-dha 00:00: mouth [place] (VITAFOL 00 daily. Medical ULTRA) 29 Branch mg iron- 1 mg-200 mg Cap PNV 67-iron Yes [id number] 1{capsu Take 1 [facility] ps-folate 8-19 le} capsule by ity of no.1-dha 00:00: mouth [place] (VITAFOL 00 daily. Medical ULTRA) 29 Branch mg iron- 1 mg-200 mg Cap norgestimat 2017-03 Yes [id number] 1{tbl} Take 1 Univers e-ethinyl 2-20 tablet by ity o f estradiol 00:00: mouth [place] (ORTHO 00 daily. Medical [employer] [place], 28,) 0.18/0.215/ 0.25 mg-25 mcg tablet norgestimat 2017-03 2019- No [id number] 1{tbl} Take 1 [facility] e-ethinyl 2-20 08-19 tablet by ity of estradiol 00:00: 00:00 mouth [place] (ORTHO 00 :00 daily. Medical [facility]CLEN [facility], 28,) 0.18/0.215/ 0.25 mg-25 mcg tablet Prednisone 2017-03 No 50 mg = 1 [...] ia 0-05 Take with l 03:16: food. [place] 00 risperiDONE 2016-03 Yes 1 mg = [...] a 0-25 (Same as: l 14:00: Risperdal) [place] 00 2016-03 No 1 tab, [facility] Multivitami 0-25 Route: PO, l ns oral 14:00: Drug Form: Herm yasmany tablet 00 TAB, Dosing Weight 77.273, kg, Daily, Start date: 01/07/17 9:00:00 CDT, Duration: 30 day, Stop date: 02/05/17 9:00:00 [employer] Ativan 2016-03 No Notes: [place] 0-25 (Same as: l 05:20: Ativan) [place] ibuprofen 2016-03 No Notes: [facility] a 0-24 (Same as: l 23:00: Motrin) [place] "Do Not Crush" Take with food. M-M-R II 2016-03 No Notes: [facility] 0-24 (Same as: l 23:00: M-M-R II) [place] (measles-m umps-rubel la virus vaccine 0.5 ml INJ VL) WASTE: F/P - Red; E -Red GIVE PRIOR TO DISCHARGE tetanus/dip 2016-03 No Notes: Dewayne beverly hth/pertuss 0-24 (Tdap ) l is (Tdap) 23:00: For [place] adult/adol 00 Adolecent 5 units-2 and Adult units-15.5 use For IM mcg/0.5 mL Use. Same intramuscul as: Adacel ar (Tdap) suspension bisacodyl 2016-03 No Notes: [facility] a 0-24 (Same As: l 22:15: Dulcolax, [place] 00 Correctol) (Do Not Crush) "Do Not Crush" Lactated 2016-03 No 1,000 mL, Dewayne beverly Ringers 0-24 Rate: 100 l 1,000 mL 22:15: ml/hr, [place] 00 Infuse over: 10 hr, Route: IV, Dosing Weight 77.273 kg, Total Volume: 1,000, Start date: 01/06/17 17:15:00 CDT, Duration: 30 day, Stop date: 02/05/17 17:14:00 [employer] oxytocin 30 2016-03 No 30 unit, Me [...] [facility] 0-24 (Same As: l 22:15: Ambien) [place] 00 methylergon 2016-03 No Notes: Dewayne beverly ovine 0-24 (Same l 22:15: as:Metherg [place] 00 ine) ondansetron 2016-03 No Notes: Dewayne beverly 0-24 (Same as: l 22:15: Zofran) [place] 00 MEDICATION WASTE Product Size: 4 mg Product Wasted: ___ mg docusate 2016-03 No Notes: [facility] 0-24 (Same as: l 22:15: Colace) [place] 00 (Do Not Crush) lanolin 2016-03 No Notes: [facility] topical 0-24 (Same l 22:15: as:Lanolin [place] 00 ) Benadryl 2016-03 No Notes: [place] 0-24 (Same as: l 17:49: Benadryl) Benadryl 2016-03 No Notes: [facility] 0-24 (Same as: l 17:25: Benadryl) famotidine 2016-03 No Notes: Memor ia 0-24 (Same as: l 15:00: Pepcid) Can be dilute in 5-10cc NS IVP: Slow IV push over at least 2 minutes. methylergon 2016-03 No Notes: Dewayne beverly ovine 0-24 (Same l 15:00: as:Metherg ine) misoprostol 2016-03 No Notes: Dewayne beverly 0-24 (Same l 15:00: as:Cytotec ) Take with food carboprost 2016-03 No Notes: Memor ia 0-24 (Same As: l 15:00: Hemabate) citric 2016-03 No Notes: Memoria acid-sodium 0-24 (Same As: l citrate 15:00: BicitraKavin n 00 Cytra-2) Sodium citrate-ci tric acid (500-334 mg/5 mL): 1 mL contains sodium 1 mEq/mL and bicarbonat e 1 mEq/mL acetaminoph 2016-03 No Notes: Dewayne beverly en-hydrocod 0-24 (Same as: l one 325 14:34: [place] mg-5 mg 00 325/5) Do oral tablet not exceed 4gm/day of acetaminop hen. ondansetron 2016-03 No Notes: Dewayne beverly 0-24 (Same as: l 14:34: Zofran) MEDICATION WASTE Product Size: 4 mg Product Wasted: ___ mg lidocaine 2016-03 No Notes: Memori a 1% 0-24 (Same as: l 14:34: Xylocaine) terbutaline 2016-03 No Notes: Dewayne beverly 0-24 DO NOT l 14:34: USE IN CRYSTALIZER TENDER AREA (Same As: Brethine) butorphanol 2016-03 No Notes: Dewayne beverly 0-24 (Same As: l 14:34: Stadol) MEDICATION WASTE Product Size: 2 mg Product Wasted: ___ mg ibuprofen 2016-03 No Notes: Memori a 0-24 (Same as: l 14:34: Motrin) [place] 00 "Do Not Crush" Take with food. lidocaine 2016-03 No Notes: Memori a 1% 0-24 (Same as: l injectable 14:34: Xylocaine) H ermann solution 00 oxytocin 30 2016-03 No 30 unit, Me [...] Rate: 125 l 1,000 mL 14:34: ml/hr, [place] 00 Infuse over: 8 hr, Route: IV, Dosing Weight 77.273 kg, Total Volume: 1,000, Start date: 01/06/17 9:34:00 CDT, Duration: 30 day, Stop date: 02/05/17 9:33:00 [employer] Immunizations Ordered Filled Immunization Date Status Comments [facility] e Immunization Name Name Tdap 2017-12-08 Completed [facility] 00:00:00 [facility] Tdap 2017-12-08 Completed [facility] 00:00:00 [facility] Tdap 2017-12-08 Completed [facility] 00:00:00 [facility] Tdap 2017-12-08 Completed [facility] 00:00:00 [facility] Tdap 2017-12-08 Completed [facility] 00:00:00 [facility] Tdap 2017-12-08 Completed [facility] 00:00:00 [facility] Tdap 2017-12-08 Completed [facility] 00:00:00 [facility] Tdap 2017-12-08 Completed [facility] 00:00:00 [facility] Tdap 2017-12-08 Completed [facility] 00:00:00 [facility] Tdap 2017-12-08 Completed [facility] 00:00:00 [facility] Tdap 2017-12-08 Completed [facility] 00:00:00 [facility] TDAP 2017-12-08 Completed [facility] 00:00:00 [facility] TDAP 2017-12-08 Completed [facility] 00:00:00 [facility] TDAP 2017-12-08 Completed [facility] 00:00:00 [facility] TDAP 2017-12-08 Completed [facility] 00:00:00 [facility] TDAP 2017-12-08 Completed [facility] 00:00:00 [facility] TDAP 2017-12-08 Completed [facility] 00:00:00 [facility] TDAP 2017-12-08 Completed [facility] 00:00:00 [facility] TDAP 2017-12-08 Completed [facility] 00:00:00 [facility] TDAP 2017-12-08 Completed [facility] 00:00:00 [facility] Tdap 2017-12-08 Completed [facility] 00:00:00 [facility] TDAP 2017-12-08 Completed [facility] 00:00:00 [facility] TDAP 2017-12-08 Completed [facility] 00:00:00 [facility] TDAP 2017-12-08 Completed [facility] 00:00:00 [facility] Tdap 2017-12-08 Completed [facility] of 00:00:00 [facility] Tdap 2017-12-08 Completed [facility] of 00:00:00 [facility] HPV 2010-10-18 Completed [facility] of 00:00:00 [facility] Rubella 2010-10-18 Completed [facility] 00:00:00 [facility] HPV 2010-10-18 Completed [facility] of 00:00:00 [facility] Rubella 2010-10-18 Completed [facility] 00:00:00 [facility] HPV 2010-10-18 Completed [facility] of 00:00:00 [facility] Rubella 2010-10-18 Completed [facility] of 00:00:00 [facility] HPV 2010-10-18 Completed University of 00:00:00 [...] Branch HPV 2010-07-30 Completed [facility] of 00:00:00 [facility] HPV 2010-07-30 Completed [facility] of 00:00:00 [facility] HPV 2010-07-30 Completed [facility] of 00:00:00 [facility] HPV 2010-07-30 Completed [facility] of 00:00:00 [facility] HPV 2010-07-30 Completed [facility] 00:00:00 [facility] HPV 2010-07-30 Completed [facility] of 00:00:00 [facility] HPV 2010-07-30 Completed [facility] of 00:00:00 [facility] HPV 2010-07-30 Completed [facility] of 00:00:00 [facility] Tdap 2008-03-16 Completed [facility] of 00:00:00 [facility] Tdap 2008-03-16 Completed [facility] of 00:00:00 [facility] Tdap 2008-03-16 Completed [facility] of 00:00:00 [facility] Tdap 2008-03-16 Completed [facility] of 00:00:00 [facility] Tdap 2008-03-16 Completed [facility] of 00:00:00 [facility] Tdap 2008-03-16 Completed University of 00:00:00 [facility] Tdap 2008-03-16 Completed [facility] of 00:00:00 [facility] Tdap 2008-03-16 Completed [facility] of 00:00:00 [facility] Tdap 2008-03-16 Completed [facility] of 00:00:00 [facility] Tdap 2008-03-16 Completed [facility] of 00:00:00 [facility] Tdap 2008-03-16 Completed [facility] of 00:00:00 [facility] TDAP 2008-03-16 Completed [facility] of 00:00:00 [facility] TDAP 2008-03-16 Completed [facility] of 00:00:00 [facility] TDAP 2008-03-16 Completed [facility] of 00:00:00 [facility] TDAP 2008-03-16 Completed [facility] of 00:00:00 [facility] TDAP 2008-03-16 Completed [facility] of 00:00:00 [facility] TDAP 2008-03-16 Completed [facility] of 00:00:00 [facility] TDAP 2008-03-16 Completed [facility] of 00:00:00 [facility] TDAP 2008-03-16 Completed [facility] of 00:00:00 [facility] TDAP 2008-03-16 Completed [facility] of 00:00:00 [facility] Tdap 2008-03-16 Completed [facility] of 00:00:00 [facility] TDAP 2008-03-16 Completed [facility] of 00:00:00 [facility] TDAP 2008-03-16 Completed [facility] of 00:00:00 [facility] TDAP 2008-03-16 Completed [facility] of 00:00:00 [facility] Tdap 2008-03-16 Completed [facility] of 00:00:00 [facility] Tdap 2008-03-16 Completed [facility] of 00:00:00 [facility] Vital Signs Vital Name Observation Time Observation Value Comments Source Systolic blood 2021-10-07 12:43:00 138 mm[Hg] Univer sity of pressure [facility] Diastolic blood 2021-10-07 12:43:00 80 mm[Hg] Unive rsity of [facility] Heart rate 2021-10-07 12:43:00 65 /min Universi ty [facility] Body temperature 2021-10-07 12:43:00 36.78 [facility] Res[facility] rate 2021-10-07 12:43:00 18 /min [facility] Oxygen saturation in 2021-10-07 12:43:00 98 /min [facility] Arterial blood by [facility] Pulse oximetry Branch Body weight 2021-10-06 13:00:00 118 [facility] BMI 2021-10-06 13:00:00 47.58 kg/m2 [facility] Body height 2021-10-03 03:30:00 157.5 cm Universi ty [facility] Systolic blood 2021-07-23 02:28:00 163 mm[Hg] Univer sity of pressure [facility] Diastolic blood 2021-07-23 02:28:00 82 mm[Hg] Unive rsity of [facility] Heart rate 2021-07-23 02:28:00 100 /min Universi ty [facility] Body temperature 2021-07-23 02:28:00 37.44 [facility] Respiratory rate 2021-07-23 02:28:00 16 /min [facility] Body height 2021-07-23 02:28:00 172.7 cm Universi ty [facility] Body weight 2021-07-23 02:28:00 108.863 kg Universi ty [facility] BMI 2021-07-23 02:28:00 36.49 kg/m2 [facility]i ty [facility] Oxygen saturation in 2021-07-23 02:28:00 98 /min University of Arterial blood by [facility] Pulse oximetry Branch Systolic blood 2021-06-24 22:27:42 134 mm[Hg] Univer sity of pressure [facility] Diastolic blood 2021-06-24 22:27:42 78 mm[Hg] Unive rsity of pressure [facility] Heart rate 2021-06-24 22:27:42 67 /min Universi ty of [facility] Respiratory rate 2021-06-24 22:27:42 18 /min Univ ersity of [facility] Oxygen saturation in 2021-06-24 22:27:42 97 /min University of Arterial blood by [facility] Pulse oximetry Branch Body temperature 2021-06-24 21:13:00 37.56 Sharon Univ ersity of [facility] Body height 2021-06-24 21:13:00 172.7 cm Universi ty [facility] Body weight 2021-06-24 21:13:00 108.863 kg [facility]i [facility] BMI 2021-06-24 21:13:00 36.49 kg/m2 [facility] Heart rate 2020-09-12 03:00:00 68 /min [facility] Respiratory rate 2020-09-12 03:00:00 18 /min Univ ersity of [facility] Oxygen saturation in 2020-09-12 03:00:00 97 /min University of Arterial blood by [facility] Pulse oximetry Branch Systolic blood 2020-09-12 01:34:00 166 mm[Hg] Univer sity of pressure [facility] Diastolic blood 2020-09-12 01:34:00 96 mm[Hg] Unive rsity of pressure [facility] Body temperature 2020-09-12 01:34:00 37.5 [place] Univ ersity of [facility] Body weight 2020-09-12 01:34:00 97.523 kg [facility]i ty [facility] BMI 2020-09-12 01:34:00 32.69 kg/m2 Univers[facility] ty [facility] Systolic blood 2020-06-12 16:04:00 133 mm[Hg] Univer sity of pressure [facility] Diastolic blood 2020-06-12 16:04:00 74 mm[Hg] Unive rsity of pressure [facility] Heart rate 2020-06-12 16:04:00 77 /min [facility]i ty [facility] Body temperature 2020-06-12 16:04:00 36.61 [place] Univ ersity of [facility] Respiratory rate 2020-06-12 16:04:00 14 /min Univ ersity of [facility] Body weight 2020-06-12 16:04:00 86.183 kg [facility]i [facility] BMI 2020-06-12 16:04:00 28.89 kg/m2 Universi ty of [facility] Oxygen saturation in 2020-06-12 16:04:00 97 /min University of Arterial blood by [place] [employer] [facility] Pulse oximetry Branch Systolic blood 2020-06-12 16:04:00 133 mm[Hg] Univer sity of pressure [facility] Diastolic blood 2020-06-12 16:04:00 74 mm[Hg] Unive rsity of pressure [facility] Heart rate 2020-06-12 16:04:00 77 /min Universi ty [facility] Body temperature 2020-06-12 16:04:00 36.61 [place] Univ ersity of [facility] Respiratory rate 2020-06-12 16:04:00 14 /min Univ ersity of [facility] Body weight 2020-06-12 16:04:00 86.183 kg [facility]i ty [facility] BMI 2020-06-12 16:04:00 28.89 kg/m2 [facility] Oxygen saturation in 2020-06-12 16:04:00 97 /min [facility]terial blood by [place] [facility] Systolic blood 2020-01-03 15:11:00 153 mm[Hg] Univer sity of pressure [facility] Diastolic blood 2020-01-03 15:11:00 89 mm[Hg] Unive rsity of pressure [facility] Heart rate 2020-01-03 15:11:00 88 /min [facility]i ty [facility] Body temperature 2020-01-03 15:11:00 37.33 [place] Univ ersity of [facility] Respiratory rate 2020-01-03 15:11:00 18 /min Univ ersity of [facility] Body weight 2020-01-03 15:11:00 86.183 kg Universi ty [facility] BMI 2020-01-03 15:11:00 28.89 kg/m2 [facility] ty [facility] Oxygen saturation in 2020-01-03 15:11:00 98 /min University of Arterial blood by [facility] Pulse oximetry Branch Systolic blood 2020-01-03 15:11:00 153 mm[Hg] Univer sity of pressure [facility] Diastolic blood 2020-01-03 15:11:00 89 mm[Hg] Unive rsity of pressure [facility] Heart rate 2020-01-03 15:11:00 88 /min Universi ty of [facility] Body temperature 2020-01-03 15:11:00 37.33 Sharon Univ ersity of [facility] Respiratory rate 2020-01-03 15:11:00 18 /min Univ ersity of [facility] Body weight 2020-01-03 15:11:00 86.183 kg Universi ty of [facility] BMI 2020-01-03 15:11:00 28.89 kg/m2 Universi ty of [facility] Oxygen saturation in 2020-01-03 15:11:00 98 /min University of Arterial blood by [facility] Pulse oximetry Branch Systolic blood 2019-08-12 15:40:00 130 mm[Hg] Univer sity of pressure [facility] Diastolic blood 2019-08-12 15:40:00 81 mm[Hg] Unive rsity of pressure [facility] Heart rate 2019-08-12 15:40:00 86 /min Universi ty of [facility] Body temperature 2019-08-12 15:40:00 36.17 [place] Univ ersity of [facility] Respiratory rate 2019-08-12 15:40:00 16 /min Univ ersity of [facility] Body height 2019-08-12 15:40:00 172.7 cm Universi ty [facility] Body weight 2019-08-12 15:40:00 87.998 kg Universi ty [facility] BMI 2019-08-12 15:40:00 29.50 kg/m2 [facility] ty [facility] Systolic blood 2019-08-12 15:40:00 130 mm[Hg] Univer sity of pressure [facility] Diastolic blood 2019-08-12 15:40:00 81 mm[Hg] Unive rsity of pressure [facility] Heart rate 2019-08-12 15:40:00 86 /min Universi ty of [facility] Body temperature 2019-08-12 15:40:00 36.17 Sharon Univ ersity of [facility] Respiratory rate 2019-08-12 15:40:00 16 /min Univ ersity of [facility] Body height 2019-08-12 15:40:00 172.7 cm [facility]i ty [facility] Body weight 2019-08-12 15:40:00 87.998 kg Universi ty [facility] BMI 2019-08-12 15:40:00 29.50 kg/m2 [facility] ty [facility] Systolic blood 2019-07-26 19:33:00 109 mm[Hg] Univer sity of pressure [facility] Diastolic blood 2019-07-26 19:33:00 72 mm[Hg] Unive rsity of pressure [facility] Heart rate 2019-07-26 19:33:00 71 /min Universi ty of [facility] Body temperature 2019-07-26 19:33:00 36.78 [place] Univ ersity of [facility] Respiratory rate 2019-07-26 19:33:00 16 /min Univ ersity of [facility] Body height 2019-07-26 19:33:00 172.7 cm Universi ty [facility] Body weight 2019-07-26 19:33:00 87.573 kg [facility]i ty [facility] BMI 2019-07-26 19:33:00 29.36 kg/m2 [facility] ty [facility] Systolic blood 2019-07-26 19:33:00 109 mm[Hg] Univer sity of pressure [facility] Diastolic blood 2019-07-26 19:33:00 72 mm[Hg] Unive rsity of pressure [facility] Heart rate 2019-07-26 19:33:00 71 /min Universi ty of [facility] Body temperature 2019-07-26 19:33:00 36.78 [place] Univ ersity of [facility] Respiratory rate 2019-07-26 19:33:00 16 /min Univ ersity of [facility] Body height 2019-07-26 19:33:00 172.7 cm Universi ty of [facility] Body weight 2019-07-26 19:33:00 87.573 kg [facility] [place] BMI 2019-07-26 19:33:00 29.36 kg/m2 Universi ty of [facility] Systolic blood 2019-04-21 21:30:00 126 mm[Hg] Univer sity of pressure [facility] Diastolic blood 2019-04-21 21:30:00 64 mm[Hg] Unive rsity of pressure [facility] Heart rate 2019-04-21 21:30:00 62 /min Universi ty of [facility] Body temperature 2019-04-21 21:30:00 36.5 [facility] ersity of [facility] Respiratory rate 2019-04-21 21:30:00 18 /min [facility] Oxygen saturation in 2019-04-21 21:30:00 99 /min [facility] Arterial blood by [facility] Pulse oximetry Branch Body height 2019-04-20 16:47:00 172.7 cm Universi ty of [facility] Body weight 2019-04-20 16:47:00 85.276 kg Universi ty of [facility] BMI 2019-04-20 16:47:00 28.59 kg/m2 Universi ty of [facility] Systolic blood 2018-11-01 19:43:00 113 mm[Hg] Univer sity of pressure [facility] Diastolic blood 2018-11-01 19:43:00 67 mm[Hg] Unive rsity of pressure [facility] Heart rate 2018-11-01 19:43:00 87 /min Universi ty of [facility] Body temperature 2018-11-01 19:43:00 37.11 [place] Univ ersity of [facility] Respiratory rate 2018-11-01 19:43:00 16 /min Univ ersity of [facility] Body height 2018-11-01 19:43:00 172.7 cm [facility] [place] Body weight 2018-11-01 19:43:00 77.111 kg Universi ty of [facility] BMI 2018-11-01 19:43:00 25.85 kg/m2 Universi ty of [facility] Temperature Oral (F) 2017-12-18 03:40:00 98.8 F [facility] [place] Respitory Rate 2017-12-18 03:40:00 Jose Sheppard Systolic (mm Hg) 2017-12-18 03:40:00 Dewayne rial [place] Diastolic (mm Hg) 2017-12-18 03:40:00 Mem orial [place] Temperature Oral (F) 2017-12-18 02:07:00 98.7 F [facility] [place] Systolic (mm Hg) 2017-12-18 02:07:00 Dewayne rial [place] Diastolic (mm Hg) 2017-12-18 02:07:00 Mem orial [place] Systolic (mm Hg) 2017-12-18 01:36:00 Dewayne rial [place] Diastolic (mm Hg) 2017-12-18 01:36:00 Mem [facility]rial [place] Weight 2017-12-18 01:01:00 [facility] [place] BMI Calculated 2017-12-18 01:01:00 Memori al [place] Heart Rate 2017-12-18 01:01:00 [facility] [place] Height 2017-12-18 01:01:00 172.72 cm [facility] [place] Temperature Oral (F) 2017-12-18 01:01:00 98.9 F [facility] [place] Respitory Rate 2017-12-18 01:01:00 Memori al [place] Temperature Oral (F) 2017-01-08 13:00:00 98.0 F [facility] [place] Systolic (mm Hg) 2017-01-08 13:00:00 Dewayne rial [place] Diastolic (mm Hg) 2017-01-08 13:00:00 Mem orial [place] Respitory Rate 2017-01-08 13:00:00 Memori al [place] Heart Rate 2017-01-08 13:00:00 [facility] [place] Systolic (mm Hg) 2017-01-08 01:20:00 Dewayne rial [place] Diastolic (mm Hg) 2017-01-08 01:20:00 Mem orial [place] Temperature Oral (F) 2017-01-08 01:20:00 98.2 F [facility] [place] Heart Rate 2017-01-08 01:20:00 [facility] [place] Respitory Rate 2017-01-07 21:08:00 Memori al [place] Temperature Oral (F) 2017-01-07 21:08:00 98.6 F [facility] [place] Heart Rate 2017-01-07 21:08:00 [facility] [place] Systolic (mm Hg) 2017-01-07 21:08:00 Dewayne rial [place] Diastolic (mm Hg) 2017-01-07 21:08:00 Mem orinaty [place] Respitory Rate 2017-01-07 17:00:00 Jose Sheppard BMI Calculated 2017-01-06 14:20:00 Jose Sheppard Weight 2017-01-06 14:20:00 Shashi Hollowayann Height 2017-01-06 14:20:00 172.72 cm [facility] Procedures Procedure Date / Time Performing Clinician Source Performed AUTHORIZATION FOR RELEASE 2021-10-28 05:01:00 Doctor Unassigned, [facility] [place] [facility] HB ECG ROUTINE & RHYTHM 2021-10-07 09:59[facility] KIN[facility] 2021-10-07 09:50:[address] [facility] MAGNESIUM 2021-10-07 09:50:[facility] 2021-10-07 09:50[facility] THY[facility]ID [facility]IMULATING 2021-10-07 09:50:00 Sabra [facility] HORMONE [facility] BASIC METABOLIC PANEL 2021-10-07 09:50[facility], CL, CO2, GLUCOSE, Medica l Branch BUN, CREATININE, CA) IRON PANEL 2021-10-07 09:50:00 [facility] CBC WITHOUT DIFF 2021-10-07 09:50:00 [facility] LIPID PANEL ([id number])(TOTAL 2021-10-05 12:36:00 Gabe Mann [facility] CHOLESTEROL, [facility] TRIGLYCERIDES, HDL) MAGNESIUM 2021-10-04 08:47:00 Christo Ma [facility] BASIC METABOLIC PANEL 2021-10-04 08:47:00 Hardik Villafuertehammad [facility] (NA, K, CL, CO2, GLUCOSE, [facility] BUN, CREATININE, CA) HB ECG ROUTINE & RHYTHM 2021-10-03 15:17:11 Mina Neves [facility] XR KUB 2021-10-03 13:00:00 Francesca Villafuerte [facility] [place] [facility] PHOSPHORUS 2021-10-03 11:49:[address] [facility] MAGNESIUM 2021-10-03 11:49:[address] [facility] HEPATIC FUNCTION PANEL 2021-10-03 11:49:00 [facility] ([id number]) (ALB,T.PRO,BILI Medical Branch T,BU/BC,ALT,AST,ALK PHOS) BASIC METABOLIC PANEL 2021-10-03 11:49:00 [facility] (NA, K, CL, CO2, GLUCOSE, Medica l Branch BUN, CREATININE, CA) CBC WITH DIFF 2021-10-03 11:49:00 [facility] MRSA / MSSA SCREEN BY 2021-10-03 11:24:00 [facility] PCR, [facility] AC PANEL 20 + LACTIC ACID 2021-10-03 11:23:00 Collin Flanagan [facility] CRITICAL CARE 2021-10-03 10:28:00 Laurie Fiore [facility] [place] INSERT EMERGENCY 2021-10-03 10:28:00 Laurie Fiore [facility] ENDOTRACH AIRWAY Medical Branch COVID-19 (ID NOW RAPID 2021-10-03 05:19:00 Laurie Fiore [facility] TESTING) Medical Branch LAB ONLY COVID 2021-10-03 05:19:00 Laurie Fiore [facility] POCT TEST 2021-10-03 04:53:00 Laurie Fiore [facility] CREATINE KINASE 2021-10-03 04:48:00 Laurie Fiore [facility] TEST, SERUM 2021-10-03 04:48:00 Laurie Fiore [facility] COMP. METABOLIC PANEL 2021-10-03 04:48:00 Laurie Fiore [facility] ([id number]) Medical Branch SALICYLATE 2021-10-03 04:48:00 Laurie Fiore [facility] ETHANOL 2021-10-03 04:48:00 Laurie Fiore [facility] CBC WITH DIFF 2021-10-03 04:48:00 Laurie Fiore [facility] URINALYSIS 2021-10-03 04:48:00 Laurie Fiore [facility] URINE DRUG (IMMUNOASSAY) 2021-10-03 04:48:00 Laurie Fiore [facility] DRUG Medical [facility] SCREEN W/O REFLEX XR CHEST 1 VW 2021-10-03 04:02:48 Laurie Fiore [facility] NOTICE OF PRIVACY 2021-07-23 02:08:37 Doctor Jack [facility] [place] [facility] CONSENT/REFUSAL FOR 2021-07-23 02:07:51 Doctor Jack [facility] DIAGNOSIS AND TREATMENT [place] [facility] NOTICE OF PRIVACY 2021-06-24 21:03:18 Doctor Jack [facility] [place] [facility] CONSENT/REFUSAL FOR 2021-06-24 21:03:07 Doctor Jack [facility] DIAGNOSIS AND TREATMENT [place] [facility] XR CHEST 1 VW 2020-09-12 02:56:[address] [facility] POCT TEST 2020-09-12 02:09:00 Grace Salmon [facility] COVID-19 (ID NOW RAPID 2020-09-12 02:06:00 Grace Salmon [facility] TESTING) Medical Branch CONSENT/REFUSAL FOR 2020-09-12 01:20:13 [facility] DIAGNOSIS AND TREATMENT [place] [facility] NOTICE OF PRIVACY 2020-06-12 15:58:15 Doctor Jack [facility] CONSENT/REFUSAL FOR 2020-06-12 15:58:03 [facility] DIAGNOSIS AND TREATMENT [facility] NOTICE OF PRIVACY 2020-01-03 14:52:20 Doctor Jack [facility] CONSENT/REFUSAL FOR 2020-01-03 14:51:58 [facility] DIAGNOSIS AND TREATMENT [facility] POCT TEST 2019-07-26 20:23:00 [facility] WITH DIFFERENTIAL 2019-04-21 10:10:00 Yamel Diallo [facility] VENOUS CORD GAS 2019-04-20 23:48:00 YoelLynettejosé luis [place] [facility] HB ABO GROUPING 2019-04-20 18:00:00 DailloLynettejosé luis Fischer [place] [facility] RHO (D) IMMUNE GLOBULIN 2019-04-20 18:00:00 Yamel Diallo [facility] CBC WITH DIFFERENTIAL 2019-04-20 17:57:00 Yamel Diallo [facility] HEPATITIS B SURFACE 2019-04-20 17:57:00 Yamel Diallo [facility] ANTIGEN [facility] ADC OR IVETH ONLY - RPR 2019-04-20 17:57:00 [facility] AG-AB WITH REFLEX 2019-04-20 17:57:00 [facility] CONSENT[facility]REFUSAL FOR 2019-04-20 16:37:53 Doctor Unassigned, [facility] DIAGNOSIS AND TREATMENT [place] [facility] ASSIGNMENT OF BENEFITS 2019-04-20 16:37:37 Doctor Unassigned, [facility] POCT TEST 2018-11-01 19:45:00 Anamaria Biswas [facility] POCT URINALYSIS W/O 2018-11-01 19:45:00 Anamaria Biswas [facility] SPECIFIC GRAVITY [facility] ASSIGNMENT OF BENEFITS 2018-11-01 19:06:50 Doctor Unassigned, Un [facility] Name [facility] Plan of Care Planned Activity Planned Date Details Comments Source Future Scheduled 2021-11-15 Scre[facility] Test 10:47:23 malignant neoplasm of cervix (procedure) [code = 669270263] Future Scheduled 2021-11-15 [facility]ACCINE [facility] 10:47:23 [code = INFLUENZA VACCINE] Future Scheduled 2021-11-15 [facility] 10:47:23 VACCINES (1 of 3 - 3-dose series) [code = HEPATITIS B VACCINES (1 of 3 - 3-dose series)] Future Scheduled 2021-11-15 COVID-19 VACCINE [facility] 10:47:23 (#1) [code = COVID-19 VACCINE (#1)] Future Scheduled 2021-11-15 [facility]atitis C [facility] Test 10:47:23 screening (procedure) [code = 538865306] Encounters Start End Encounter Admission Attending Care Care Encounter Source Date/Time Date/Time Type Type Clinicians Facility Department ID 2021-01-14 Emergency [facility] [id number] Univers 04:48:57 ity of [facility] 2021-01-13 Emergency [facility] [id number] Univers 09:29:25 ity of [facility] 2021-01-11 Emergency [facility] [id number] Univers 23:55:14 ity of [facility] 2021-10-28 2021-10-28 Orders Doctor KIM 1.2.840.114 [id number] Univers 00:00:00 00:00:00 Only Unassigned, SHYANN 350.1.13.[address] [facility] 4.2.7.2.686 Eulogio as [phone] [facility] 009 Branch 2021-10-08 2021-10-08 Transition JEREMY Bennett 1.2.840.114 [id number] Univers 00:00:00 00:00:00 of Care Ligia Baird GENEVIEVE 350.1.13.10 i [place] of [place] [phone] [facility] 403 Branch 2021-10-02 2021-10-07 Inpatient X CRISTIAN [facility] CRYSTAL [id number] Univers 22:16:00 13:00:00 LEONEL genao of [facility] 2021-10-02 2021-10-07 Hospital Laurie Fiore 1.2.840.1 [id number] Univers 22:16:00 13:00:00 Encounter Leonel Miller 350.1.13 .10 ity of [facility] 4.2.7.2.686 Leonel Alvarado [phone] Medical 097 Branch 2021-07-22 2021-07-22 Emergency X ANNA [facility] ERT [id number] Univers 21:31:00 22:44:00 BEN ity [facility] 2021-07-22 2021-07-22 [facility] [id number] Univers 21:31:00 22:44:00 Ben BANKS 350.1.13.10 i ty of [place] 4.2.7.2.686 [facility] [phone] [place] [address] Branch 2021-06-24 2021-06-24 Emergency X ROSEN, [facility] ERT [id number] Univers 16:14:00 17:33:00 MITALI itdaily [facility] 2021-06-24 2021-06-24 Emergency [facility] 1.2.840.114 [id number] Univers 16:14:00 17:33:00 Mitali BANKS 350.1.13.10 i ty of [place] 4.2.7.2.686 [facility] [id number] [place] 861264 Branch 2020-09-11 2020-09-11 [facility] 1.2.475.112 [id number] Univers 20:38:00 22:54:00 Grace Banks 350.1.13.10 ity of [place] 4.2.7.2.686 [facility] [id number] [place] 861264 [place] 2020-09-11 2020-09-11 Orders Doctor ALVAREZ 1.2.840.114 [id number] Univers 00:00:00 00:00:00 Only Unassigned, SHYANN 350.1.13.10 ity of [place] [facility] 4.2.7.2.686 [facility] [phone] [place] [address] Branch 2020-08-20 2020-08-20 Outpatient R [facility] [id number] Univers 10:30:00 10:30:00 [id number] ity [facility] 2020-08-20 2020-08-20 [facility] [id number] Univers 10:30:00 10:30:00 CHANELL constantinoUT [facility] 2020-07-02 2020-07-02 Outpatient R [facility] [id number] Univers 11:00:00 11:00:00 [id number] ity [facility] 2020-07-02 2020-07-02 Outpatient R JONATHON, [facility] [id number] Univers 11:00:00 11:00:00 CHANELL ity [facility] 2020-06-29 2020-06-29 Outpatient R [facility] [id number] Univers 16:00:00 16:00:00 [id number] itUT [facility] 2020-06-12 2020-06-12 Emergency [facility] 1.2.840.114 [id number] Univers 11:05:00 11:12:00 Mitali Banks 350.1.13.10 i ty of [place] [phone] [facility] 084 [place] 2020-06-12 2020-06-12 Emergency [facility] 1.2.840.114 [id number] 11:05:00 11:12:00 Mitali Banks 350.1.13.10 [place] 4.2.7.2.686 [place] [id number] 08 2020-06-12 2020-06-12 Orders Doctor KIM 1.2.840.114 [id number] Univers 00:00:00 00:00:00 Only Unassigned, SHYANN 350.1.13.10 ity of [place] [facility] 4.2.7.2.686 [place]ul[place] as [id number] [facility] 009 Branch 2020-06-12 2020-06-12 Orders Doctor ALVAREZ 1.2.840.114 [id number] 00:00:00 00:00:00 Only Unassigned, SHYANN 350.1.13.10 [place] [facility] 4.2.7.2.686 [id number] 009 2020-06-05 2020-06-05 Patient Edward [facility] 1.2.840.114 [id number] Univers 00:00:00 00:00:00 Outreach Miguel Angel PRIMARY 350.1.13.10 i ty of [facility] [place]2.[place] [id number] Nh dical 388 Branch 2020-06-05 2020-06-05 Patient Edward [facility] 1.2.840.114 [id number] 00:00:00 00:00:00 Outreach Miguel Angel ASHTYN 350.1.13.10 [facility] 4.2.7.2.686 [place] [id number] 388 2020-01-03 2020-01-03 Emergency [facility] 1.2.840.114 [id number] [facility] 10:20:00 11:05:00 Emily Banks 350.1.13.10 ity [facility] 4.2.7.2.686 [facility] [id number] [facility] [address] [place] [address] 2020-01-03 2020-01-03 Emergency [facility] 1.2.840.114 [id number] 10:20:00 11:05:00 Emily Banks 350.1.13.10 [place] 4.2.7.2.686 [place] [id number] [facility] 2020-01-03 2020-01-03 Telephone Linnette Jain 1.2.840.114 [id number] [facility] 00:00:00 00:00:00 SHYANN 350.1.13.10 it y [facility] 4.2.7.2.686 Eulogio [id number] [facility] 019 [place] 2020-01-03 2020-01-03 Telephone Linnette Jain 1.2.840.114 [id number] 00:00:00 00:00:00 SHYANN 350.1.13.10 [facility] 4.2.7.2.686 [id number] 019 2019-11-04 2019-11-04 Outpatient R [facility] [id number] Univers 10:00:00 10:00:00 [id number] ity [facility] 2019-11-04 2019-11-04 Outpatient R [facility] [id number] Univers 10:00:00 10:00:00 ity [facility] 2019-08-12 2019-08-12 Nurse Visit, Ang-Rmchp Nurse [facility] 1.2 .840.114 [id number] Univers 10:14:36 10:29:36 Visit Heaven Guadalupe CRYSTALIZER TENDER 350.1.13. 10 ity of [facility]AL 4.2.7.2.686 [place] as MATERNAL [phone] Med ical & CHILD [address] [place] [address] 2019-08-12 2019-08-12 Nurse Visit, [facility] 1.2.840.114 [id number] 10:14:36 10:29:36 Visit [facility] CRYSTALIZER TENDER 350.1.13.10 Nurse REGIONAL 4.2.7.2.686 MATERNAL [id number] & CHILD [address] [place] [address] 2019-08-12 2019-08-12 Outpatient R [facility] [id number] Univers 10:00:00 10:00:00 [id number] ity of [facility] 2019-08-12 2019-08-12 Outpatient R LAVERNE [facility] [id number] Univers 10:00:00 10:00:00 HEAVEN ity o f [facility] 2019-08-12 2019-08-12 [facility] 1.2.840.114 [id number] Univers 00:00:00 00:00:00 Hevaen C CRYSTALIZER TENDER 350.1.13.10 ity of [place] 4.2.7.2.686 [place] as MATERNAL [phone] [facility] & CHILD [address] [place] [address] 2019-08-12 2019-08-12 [facility] 1.2.481.046 [id number] [facility] 00:00:00 00:00:00 Management Heaven C CRYSTALIZER TENDER 350.1.13.10 ity of [place] 4.2.7.2.686 Eulogio as MATERNAL [phone] [facility] ical & CHILD [address] [place] [address] 2019-08-12 2019-08-12 Telephone [facility], [facility] 1.2.840.114 [id number] 00:00:00 00:00:00 Heaven C CRYSTALIZER TENDER 350.1.13.10 REG[place]AL 4.2.7.2.686 MATERNAL [id number] & CHILD [address] [place] [address] 2019-08-12 2019-08-12 Case Akinsipe, [facility] [id number] 00:00:00 00:00:00 Management Heaven C CRYSTALIZER TENDER 350.1.13.10 [place] 4.2.7.2.686 MATERNAL [id number] & CHILD 107 [facility] 2019-08-11 2019-08-11 [facility]phone [facility] 1.2.840.114 [id number] Univers 00:00:00 00:00:00 Heaven C CRYSTALIZER TENDER 350.1.13.10 ity of [place] 4.2.7.2.686 [place] as MATERNAL [id number] Med ical & CHILD [address] [place] [address] 2019-08-11 2019-08-11 Telephone [facility] 1.2.840.114 [id number] 00:00:00 00:00:00 Heaven C CRYSTALIZER TENDER 350.1.13.10 [place] 4.2.7.2.686 MATERNAL [id number] & CHILD 107 [facility] 2019-07-26 2019-07-26 Office [facility] 1.2.397.040 [id number] Univers 14:00:18 15:22:03 Visit Heaven C CRYSTALIZER TENDER 350.1.13.10 ity of [place] 4.2.7.2.686 [place] as MATERNAL [phone] Med ical & CHILD [address] [place] [address] 2019-07-26 2019-07-26 Office [facility] [id number] [id number] 14:00:18 15:22:03 Visit Heaven C CRYSTALIZER TENDER 350.1.13.10 [place]AL 4.2.7.2.686 MATERNAL [id number] & CHILD 107 [facility] 2019-07-26 2019-07-26 Outpatient LAVERNE, [facility] [id number] Univers 14:15:00 14:15:00 HEAVEN [id number] ity o f [facility] 2019-07-26 2019-07-26 [facility] [id number] Univers 14:15:00 14:15:00 HEAVEN ity o f [facility] 2019-07-13 2019-07-13 Telephone [facility] 1.2.840.114 [id number] Univers 00:00:00 00:00:00 Anamaria N CRYSTALIZER TENDER 350.1.13.10 it y of [place] 4.2.7.2.686 [place] as MATERNAL [id number] Med ical & CHILD 107 [facility] 2019-04-20 2019-04-21 Hospital Yamel Diallo [facility] 1.2.840.114 [id number] Univers 10:29:00 20:22:00 Encounter [facility] 350.1.13.10 ity of [place] [id number] [address] 2019-04-20 2019-04-20 [facility]phone [facility] 1.2.840.114 [id number] Univers 00:00:00 00:00:00 Anamaria N CRYSTALIZER TENDER 350.1.13.10 it y of [facility] 4.2.7.2.686 [place]ulog[place] as MATERNAL [id number] Med ical & CHILD 107 [facility] 2019-04-19 2019-04-19 Patient Doctor [facility] 1.2.840.114 [id number] Univers 00:00:00 00:00:00 Secure Msg Unassigned, CRYSTALIZER TENDER 350.1.13.10 ity of [place] [facility] 4.2.7.2.686 [place] as MATERNAL [id number] Med ical & CHILD 107 [facility] 2019-04-19 2019-04-19 Patient Doctor [facility] 1.2.840.114 [id number] Univers 00:00:00 00:00:00 Secure Msg Unassigned, CRYSTALIZER TENDER 350.1.13.10 ity of [place] 4.2.7.2.686 Eulogio as MATERNAL [id number] Med ical & CHILD 107 [facility] 2018-11-03 2018-11-03 [facility]phone [facility] 1.2.840.114 [id number] Univers 00:00:00 00:00:00 Anamaria N CRYSTALIZER TENDER 350.1.13.10 it y of [facility] 4.2.7.2.686 Eulogio as MATERNAL [id number] Med ical & CHILD [address] [place] [address] 2018-11-01 2018-11-01 Initial [facility] [id number] Univers 14:25:40 15:32:55 Anamaria N CRYSTALIZER TENDER 350.1.13.10 i ty of Visit [facility] 4.2.7.2.686 [place] as MATERNAL [id number] Med ical & CHILD 107 [facility] 2018-11-01 2018-11-01 Orders Doctor KIM 1.2.840.114 [id number] Univers 00:00:00 00:00:00 Only Unassigned, SHYANN 350.1.13.10 ity of [place] [facility] 4.2.7.2.686 Eulog[place] as [id number] [address] 2017-12-18 2017-12-18 [facility] [id number] Memoria 00:59:00 03:53:00 anju Pendleton 01 l [facility] 2017-12-17 2017-12-17 Outpatient JESUS Pérez [facility] [id number] 19:59:00 22:53:00 Eric 2017-09-29 2017-09-29 Outpatient [facility] [id number] [place] 17:11:19 17:11:19 [facility] 2017-06-02 2017-06-02 Emergency [facility] [id number] [place] 20:36:43 20:36:43 Health 2017-06-02 2017-06-02 Outpatient [facility] [id number] [place] 00:00:00 00:00:00 [facility] 2017-01-06 2017-01-08 [facility] [id number] Memoria 13:38:00 20:17:00 anju Pendleton 00 l [facility] 2017-01-06 2017-01-08 Outpatient JESSIE Ryan [facility] [id number] 08:38:00 15:17:00 [place] [id number] 2016-12-05 2016-12-05 Outpatient [facility] [id number] [place] 00:00:00 00:00:00 [facility] 2016-12-05 2016-12-05 Outpatient [facility] [id number] [place] 00:00:00 00:00:00 [facility] 2016-11-28 2016-11-28 Outpatient [facility] [id number] [place] 00:00:00 00:00:00 [facility] 2016-11-26 2016-11-26 Outpatient [facility] [id number] [place] 16:32:00 16:32:00 [facility] 2016-11-26 2016-11-26 Outpatient [facility] [id number] [place] 00:00:00 00:00:00 [facility] 2016-11-13 2016-11-13 Emergency [facility] [id number] [place] 02:04:55 02:04:55 [facility] 2016-08-25 2016-08-25 Emergency E [facility] [id number] 13:00:00 13:00:00 [facility] Results Test Description Test Time Test Comments Results Result Comments Source CREATINE KINASE 2021-10-07 16:45:55 Test Item Value Reference Range Interpretation Comme nts CK (test code = 6229815571) 505 U/L 33-194 H Lab Interpretation (test code = 77452-0) Abnormal [facility] [id number] 11:33:50 Test Item Value Reference Range Interpretation Comments FERRITIN (test code = 43.2 ng/mL 6-137 4407533090) OMARI (test code = OMARI) Biotin has been reported to cause a negative bias, interpret results relative to patient's use of biotin. Lab Interpretation (test Normal code = 81759-3) [facility] STIMULATING [id number] 11:26:11 Test Item Value Reference Range Interpretation Comments TSH (test code = See_Comment Biotin has been 3273977913) reported to cau se a negative bias, interpret resul ts relative to pat ient's use of biotin. [Automated mess age] The system The Hitch generated this result transmitted ref erence range: 0.45 - 4 .70 mIU/L. The refe rence range was not u sed to interpret this result as normal/abnor mal. Lab Interpretation (test Normal code = 59575-7) [facility] [id number] 11:02:44 Test Item Value Reference Range Interpretation Comments IRON (test code = 4582922923) 36 ug/dL 50-160 L TIBC (test code = 6107624837) 342 ug/dL 250-410 % FE SAT (test code = 0265766132) 11 % 20-50 L Lab Interpretation (test code = Abnormal 94123-3) [facility] METABOLIC PANEL (NA, K, CL, CO2, GLUCOSE, BUN, CREATININE, CA)2021-10-07 10:53:28 Test Item Value Reference Range Interpretation Comments NA (test code = 139 mmol/L 135-145 0216500160) K (test code = 3.5 mmol/L 3.5-5 2576305209) CL (test code = 111 mmol/L 98-108 H 2322725338) CO2 TOTAL (test code = 20 mmol/L 23-31 L 5503965544) AGAP (test code = 2-16 7279858523) BUN (test code = 4 mg/dL 7-23 L 7991321137) GLUCOSE (test code = 101 mg/dL 70-110 0712435455) CREATININE (test code = 0.61 mg/dL 0.5-1.04 8957233081) CALCIUM (test code = 8.7 mg/dL 8.6-10.6 4655422209) eGFR (test code = mL/min/1.73m2 4486879178) OMARI (test code = OMARI) Association of Glomerular Filtration Rate (GFR) and Staging of Kidney Disease* + --+ --+ ------+| GFR (mL/min/1.73 m2) ?| With Kidney Damage ?| ?Without Kidney Damage+ --------+ --------+ +| ?>90 ?| ?Stage one ?| ? Normal ?+ ---+ ---+ -------+| ?60-89 ?| ?Stage two ?| ? Decreased GFR ? + --+ --+ ------+| ?30-59 ?| ?Stage three ?| ? Stage three ? + --+ --+ ------+| ?15-29 ?| ?Stage four ? | ? Stage four ?+ ---+ ---+ -------+| ?<15 (or dialysis) ? ?| ?Stage five ? | ? Stage five ?+ ---+ ---+ -------+ *Each stage assumes the associated GFR level has been in effect for at least three months. ?Stages 1 to 5, with or without kidney disease, indicate chronic kidney disease. Notes: Determination of stages one and two (with eGFR >59mL/min/1.73 m2) requires estimation of kidney damage for at least three months as defined by structural or functional abnormalities of the kidney, manifested by either:Pathological abnormalities or Markers of kidney damage (including abnormalities in the composition of the blood or urine or abnormalities in imaging tests). Lab Interpretation Abnormal (test code = 90971-7) [facility]2022-07-25 10:53:28 Test Item Value Reference Range Interpretation Comments MAGNESIUM (test code = 7589824468) 1.7 mg/dL 1.7-2.4 Lab Interpretation (test code = Normal 91088-2) [facility] WITHOUT [id number] 10:16:24 Test Item Value Reference Range Interpretation Comments WBC (test code = 6690-2) See_Comment [A utomated message] The system The Hitch generated this result transmit sue reference range : 4.30 - 11.10 10*3/?L. The reference range was not used to interpret this result as normal/abnormal . RBC (test code = 789-8) See_Comment L [Au tomated message] The system The Hitch generated this result transmit sue reference range : 3.93 - 5.25 10* 6/?L. The reference r hugo was not used to interpret this result as normal/abnormal . HGB (test code = 718-7) 9.9 g/dL 11.6-15 L HCT (test code = 4544-3) 31.7 % 35.7-45.2 L MCH (test code = 785-6) 27.3 pg 25.9-32.8 MCV (test code = 787-2) 87.3 fL 80.6-95.5 MCHC (test code = 786-4) 31.2 g/dL 31.6-35.1 L PLT (test code = 777-3) See_Comment [Au tomated message] The system The Hitch generated this result transmit sue reference range : 166 - 358 10*3/?L. The reference range was not used to interpret this result as normal/abnormal . MPV (test code = 10.6 fL 9.5-12.9 50462-0) RDW-CV (test code = 15.3 % 12-15.5 788-0) RDW-SD (test code = 49.2 fL 39-49.9 97324-6) NRBC x10^3 (test code = See_Comment [Au tomated message] 6906027745) The system The Hitch generated this result transmit sue reference range : 10*3/?L. The reference range was not used to interpret this result as normal/abnormal . NRBC/100 WBC (test code See_Comment [Au tomated message] = 6457610032) The system Prized generated this result transmit sue reference range : 0.0 - 10.0 /100 WBC s. The reference r hugo was not used to interpret this result as normal/abnormal . IPF % (test code = 4352921883) Lab Interpretation (test Abnormal code = 89667-9) [facility] METABOLIC PANEL (NA, K, CL, CO2, GLUCOSE, BUN, CREATININE, CA)2021-10-04 09:59:51 Test Item Value Reference Range Interpretation Comments NA (test code = 139 mmol/L 135-145 4553854446) K (test code = 4.6 mmol/L 3.5-5 Slight 0362258953) hemolysis CL (test code = 112 mmol/L 98-108 H 3120060033) CO2 TOTAL (test code 22 mmol/L 23-31 L = 5101311201) AGAP (test code = 2-16 8821146821) BUN (test code = 5 mg/dL 7-23 L Slight 4912606770) hemolysis GLUCOSE (test code = 101 mg/dL 70-110 6630955526) CREATININE (test code 0.69 mg/dL 0.5-1.04 = 9872808033) CALCIUM (test code = 8.5 mg/dL 8.6-10.6 L 6779266797) eGFR (test code = mL/min/1.73m2 4894534601) OMARI (test code = OMARI) Association of Glomerular Filtration Rate (GFR) and Staging of Kidney Disease* + -----+ --------+ +| GFR (mL/min/1.73 m2) ?| With Kidney Damage ?| ?Without Kidney Damage+ +------- +---- --+| ?>90 ?| ?Stage one ?| ? Normal ?+ ------+ ---------+--------- +| ?60-89 ?| ?Stage two ?| ? Decreased GFR ? + -----+ --------+ +| ?30-59 ?| ?Stage three ?| ? Stage three ? + -----+ --------+ +| ?15-29 ?| ?Stage four ? | ? Stage four ?+ ------+ ---------+--------- +| ?<15 (or dialysis) ? ?| ?Stage five ? | ? Stage five ?+ ------+ ---------+--------- + *Each stage assumes the associated GFR level has been in effect for at least three months. ?Stages 1 to 5, with or without kidney disease, indicate chronic kidney disease. Notes: Determination of stages one and two (with eGFR >59mL/min/1.73 m2) requires estimation of kidney damage for at least three months as defined by structural or functional abnormalities of the kidney, manifested by either:Pathological abnormalities or Markers of kidney damage (including abnormalities in the composition of the blood or urine or abnormalities in imaging tests). Lab Interpretation Abnormal (test code = 06920-4) [facility] 09:59:51 Test Item Value Reference Range Interpretation Comments MAGNESIUM (test code = 4056589170) 2.0 mg/dL 1.7-2.4 Lab Interpretation (test code = Normal 74398-1) [facility] Met[facility] Panel (NA, K, CL, CO2, Glucose, BUN, Creatinine, CA)2021-10-03 13:13:02 Test Item Value Reference Range Interpretation Comments NA (test code = 143 mmol/L 135-145 0606071645) K (test code = 4.1 mmol/L 3.5-5 0428782038) CL (test code = 112 mmol/L 98-108 H 0091904730) CO2 TOTAL (test code = 21 mmol/L 23-31 L 6846414981) AGAP (test code = 2-16 8655199812) BUN (test code = 3 mg/dL 7-23 L 6946664293) GLUCOSE (test code = 114 mg/dL 70-110 H 8481952654) CREATININE (test code = 0.69 mg/dL 0.5-1.04 4321018261) CALCIUM (test code = 9.4 mg/dL 8.6-10.6 7472681277) eGFR (test code = mL/min/1.73m2 9573309085) OMARI (test code = OMARI) Association of Glomerular Filtration Rate (GFR) and Staging of Kidney Disease* + --+ --+ ------+| GFR (mL/min/1.73 m2) ?| With Kidney Damage ?| ?Without Kidney Damage+ --------+ --------+ +| ?>90 ?| ?Stage one ?| ? Normal ?+ ---+ ---+ -------+| ?60-89 ?| ?Stage two ?| ? Decreased GFR ? + --+ --+ ------+| ?30-59 ?| ?Stage three ?| ? Stage three ? + --+ --+ ------+| ?15-29 ?| ?Stage four ? | ? Stage four ?+ ---+ ---+ -------+| ?<15 (or dialysis) ? ?| ?Stage five ? | ? Stage five ?+ ---+ ---+ -------+ *Each stage assumes the associated GFR level has been in effect for at least three months. ?Stages 1 to 5, with or without kidney disease, indicate chronic kidney disease. Notes: Determination of stages one and two (with eGFR >59mL/min/1.73 m2) requires estimation of kidney damage for at least three months as defined by structural or functional abnormalities of the kidney, manifested by either:Pathological abnormalities or Markers of kidney damage (including abnormalities in the composition of the blood or urine or abnormalities in imaging tests). Lab Interpretation Abnormal (test code = 16841-5) [facility] [id number] 13:13:02 Test Item Value Reference Range Interpretation Comments MAGNESIUM (test code = 3983495574) 2.1 mg/dL 1.7-2.4 Lab Interpretation (test code = Normal 29100-5) [facility] HospitalPhosphorus [id number] 13:13:02 Test Item Value Reference Range Interpretation Comments PHOSPHORUS (test code = 2783969975) 3.3 mg/dL 2.5-5 Lab Interpretation (test code = Normal 72050-8) [facility] HospitalHepatic Function Panel (ALB, T.PRO, BILI T, BU/BC, ALT, AST, ALK, PHOS)2021-10-03 13:13:02 Test Item Value Reference Range Interpretation Comments TOTAL BILI (test code = 8931500599) 0.2 mg/dL 0.1-1.1 BILI UNCON (test code = 3428737425) 0.3 mg/dL 0.1-1.1 BILI CONJ (test code = 3884945871) 0.0 mg/dL 0-0.3 T PROTEIN (test code = 2516267787) 7.3 g/dL 6.3-8.2 ALBUMIN (test code = 4038996364) 4.1 g/dL 3.5-5 ALK PHOS (test code = 3552934787) 108 U/L 34-122 ALTv (test code = 1742-6) 20 U/L 5-35 AST(SGOT) (test code = 8414044991) 49 U/L 13-40 H Lab Interpretation (test code = Abnormal 48573-5) [facility] with Wuakmcbxwvrf1049-20-92 12:10:39 Test Item Value Reference Range Interpretation Comments WBC (test code = See_Comment [Automated 2990-2) message] The sy stem which generated this result transmitted reference range : 4.30 - 11.10 10*3/?L. The reference range was not used to interpret this result as normal/abnormal . RBC (test code = See_Comment [Automated 249-8) message] The sy stem which generated this result transmitted reference range : 3.93 - 5.25 10*6/?L. The reference range was not used to interpret this result as normal/abnormal . HGB (test code = 11.1 g/dL 11.6-15 L 718-7) HCT (test code = 35.0 % 35.7-45.2 L 4544-3) MCV (test code = 86.6 fL 80.6-95.5 787-2) MCH (test code = 27.5 pg 25.9-32.8 785-6) MCHC (test code = 31.7 g/dL 31.6-35.1 786-4) RDW-SD (test code = 49.3 fL 39-49.9 12660-2) RDW-CV (test code = 15.8 % 12-15.5 H 788-0) PLT (test code = See_Comment [Automated 777-3) message] The sy stem which generated this result transmitted reference range : 166 - 358 10*3/ ?L. The reference r hugo was not used to interpret this result as normal/abnormal . MPV (test code = 10.1 fL 9.5-12.9 24262-1) NRBC/100 WBC (test See_Comment [Automat ed code = 1949232582) message] The system which generated this result transmitted reference range : 0.0 - 10.0 /100 WBCs. The refer ence range was not u sed to interpret th is result as normal/abnormal . NRBC x10^3 (test code See_Comment [Auto mated = 1929002521) message] The s ystem which generated this result transmitted reference range : 10*3/?L. The reference range was not used to interpret this result as normal/abnormal . GRAN MAT (NEUT) % 62.3 % (test code = 770-8) IMM GRAN % (test code 0.70 % = 9964397119) LYMPH % (test code = 29.5 % 736-9) MONO % (test code = 6.8 % 5905-5) EOS % (test code = 0.4 % 713-8) BASO % (test code = 0.3 % 706-2) GRAN MAT x10^3(ANC) 4.65 10*3/uL 1.88-7.09 (test code = 8396539888) IMM GRAN x10^3 (test 0.05 10*3/uL 0-0.06 code = 7798051743) LYMPH x10^3 (test code 2.20 10*3/uL 1.32-3.29 = 731-0) MONO x10^3 (test code 0.51 10*3/uL 0.33-0.92 = 742-7) EOS x10^3 (test code = 0.03 10*3/uL 0.03-0.39 711-2) BASO x10^3 (test code 0.01-0.07 = 704-7) Lab Interpretation Abnormal (test code = 00118-1) [facility] HospitalAC Panel 20 + Lactic [id number] 11:34:16 Test Item Value Reference Range Interpretation Comments PH (test code = 2) 7.35-7.45 PCO2 (test code = See_Comment L [Automate d 3725173459) message] The sy stem which generated this result transmitted reference range : 35 - 45 mmHg. The reference range was not used to interpret this result as normal/abnormal . PO2 (test code = See_Comment H [Automated 6071897628) message] The sy stem which generated this result transmitted reference range : 80 - 100 mmHg. The reference range was not used to interpret this result as normal/abnormal . HCO3 (test code = See_Comment L [Automate d 8111086034) message] The sy stem which generated this result transmitted reference range : 22 - 26 mEq/L. The reference range was not used to interpret this result as normal/abnormal . BE (test code = See_Comment L [Automated 0244615525) message] The sy stem which generated this result transmitted reference range : -3.0 - 3.0 mEq/ L. The reference r hugo was not used to interpret this result as normal/abnormal . THB (test code = 12.3 g/dL 12-16 7606956518) %O2HB (test code = 99.1 % 94-99 H 3610465548) %COHB ART (test code = 0.0 % 0-1.5 8301252520) %METHB ART (test code = 0.1 % 0.4-1.5 L 0994829660) VOL%O2 ART (test code = 17.5 % 15-23 5658905294) NA (test code = 141 mmol/L 135-145 6440475040) K+ (test code = 4.0 mmol/L 3.5-5 1705120412) AC CA IONZ (test code = 4.70 mg/dL 4.5-5.3 3420047579) GLUCOSE (test code = 102 mg/dL 70-110 6098271473) LACTIC ACID (test code 2.28 mmol/L 0.5-2.2 H = 4167333175) Lab Interpretation Abnormal (test code = 52957-1) [facility] WITH [id number] 05:44:57 Test Item Value Reference Range Interpretation Comments WBC (test code = See_Comment [Automated 6690-2) message] The sy stem which generated this result transmitted reference range : 4.30 - 11.10 10*3/?L. The reference range was not used to interpret this result as normal/abnormal . RBC (test code = See_Comment [Automated 789-8) message] The sy stem which generated this result transmitted reference range : 3.93 - 5.25 10*6/?L. The reference range was not used to interpret this result as normal/abnormal . HGB (test code = 11.8 g/dL 11.6-15 718-7) HCT (test code = 37.8 % 35.7-45.2 4544-3) MCV (test code = 88.5 fL 80.6-95.5 787-2) MCH (test code = 27.6 pg 25.9-32.8 785-6) MCHC (test code = 31.2 g/dL 31.6-35.1 L 786-4) RDW-SD (test code = 50.4 fL 39-49.9 H 90406-9) RDW-CV (test code = 15.7 % 12-15.5 H 788-0) PLT (test code = See_Comment [Automated 777-3) message] The sy stem which generated this result transmitted reference range : 166 - 358 10*3/ ?L. The reference r hugo was not used to interpret this result as normal/abnormal . MPV (test code = 10.3 fL 9.5-12.9 45234-1) IPF % (test code = 4.1 % 1.3-7.7 Platelet count 2626274729) measured by fluorescence method. NRBC/100 WBC (test See_Comment [Automat ed code = 2495961671) message] The system which generated this result transmitted reference range : 0.0 - 10.0 /100 WBCs. The refer ence range was not u sed to interpret th is result as normal/abnormal . NRBC x10^3 (test code See_Comment [Auto mated = 8986124173) message] The s ystem which generated this result transmitted reference range : 10*3/?L. The reference range was not used to interpret this result as normal/abnormal . GRAN MAT (NEUT) % 68.8 % (test code = 770-8) IMM GRAN % (test code 1.00 % = 7182241064) LYMPH % (test code = 21.6 % 736-9) MONO % (test code = 7.7 % 5905-5) EOS % (test code = 0.6 % 713-8) BASO % (test code = 0.3 % 706-2) GRAN MAT x10^3(ANC) 7.31 10*3/uL 1.88-7.09 H (test code = 2630076913) IMM GRAN x10^3 (test 0.11 10*3/uL 0-0.06 H code = 9367304712) LYMPH x10^3 (test code 2.29 10*3/uL 1.32-3.29 = 731-0) MONO x10^3 (test code 0.82 10*3/uL 0.33-0.92 = 742-7) EOS x10^3 (test code = 0.06 10*3/uL 0.03-0.39 711-2) BASO x10^3 (test code 0.03 10*3/uL 0.01-0.07 = 704-7) PLT ESTIMATE (test Normal Normal code = 9317-9) Lab Interpretation Abnormal (test code = 52334-2) [facility] HospitalACETAMINOPHEN2022-07-21 05:24:02 Test Item Value Reference Range Interpretation Comments ACETAMINOP (test code = 10-30 L 9254662470) OMARI (test code = OMARI) Toxic: Greater than 200 ug/mL @ 4 hour post ingestion or greater than 50 ug/mL @ 12 hour post ingestion Lab Interpretation (test Abnormal code = 33738-1) [facility] HospitalETHANOL2022-07-21 05:23:47 Test Item Value Reference Range Interpretation Comments ALCOHOL (test code = 157 mg/dL 1082371302) OMARI (test code = OMARI) <10 Mivbikti24-319 Toxic>100 Depression of OTOLARYNGOLOGY SURGEON>[address] [facility] HospitalSALICYLATE2022-07-21 05:23:22 SALICYLATE<10mg/L10/03/2021 12:23 AM [facility]ORYTherapeutic Range: ? Analgesic and Antipyretic Use ? 20- 100 mg/L ? ? Anti-Inflammatory Use ? 100-250 mg/L Toxic Range: ? Greater than 300 mg/LUnHeart Hospital of AustinCOMP. METABOLIC PANEL (15058)2021-10-03 05:23:07 Test Item Value Reference Range Interpretation Comments NA (test code = 140 mmol/L 135-145 5386010376) K (test code = 4.3 mmol/L 3.5-5 1537745848) CL (test code = 105 mmol/L 98-108 8312331567) CO2 TOTAL (test code = 19 mmol/L 23-31 L 6553494833) AGAP (test code = 2-16 0915997870) BUN (test code = 3 mg/dL 7-23 L 3292886541) GLUCOSE (test code = 110 mg/dL 70-110 6370101387) CREATININE (test code = 0.72 mg/dL 0.5-1.04 7407125812) TOTAL BILI (test code = 0.5 mg/dL 0.1-1.9 1582559953) CALCIUM (test code = 8.9 mg/dL 8.6-10.6 3298840781) T PROTEIN (test code = 7.7 g/dL 6.3-8.2 4791598253) ALBUMIN (test code = 4.4 g/dL 3.5-5 5356509421) ALK PHOS (test code = 111 U/L 34-122 1148866088) ALTv (test code = 22 U/L 5-35 1742-6) AST(SGOT) (test code = 35 U/L 13-40 2532298567) eGFR (test code = mL/min/1.73m2 6991216114) OMARI (test code = OMARI) Association of Glomerular Filtration Rate (GFR) and Staging of Kidney Disease* + --+ --+ ------+| GFR (mL/min/1.73 m2) ?| With Kidney Damage ?| ?Without Kidney Damage+ --------+ --------+ +| ?>90 ?| ?Stage one ?| ? Normal ?+ ---+ ---+ -------+| ?60-89 ?| ?Stage two ?| ? Decreased GFR ? + --+ --+ ------+| ?30-59 ?| ?Stage three ?| ? Stage three ? + --+ --+ ------+| ?15-29 ?| ?Stage four ? | ? Stage four ?+ ---+ ---+ -------+| ?<15 (or dialysis) ? ?| ?Stage five ? | ? Stage five ?+ ---+ ---+ -------+ *Each stage assumes the associated GFR level has been in effect for at least three months. ?Stages 1 to 5, with or without kidney disease, indicate chronic kidney disease. Notes: Determination of stages one and two (with eGFR >59mL/min/1.73 m2) requires estimation of kidney damage for at least three months as defined by structural or functional abnormalities of the kidney, manifested by either:Pathological abnormalities or Markers of kidney damage (including abnormalities in the composition of the blood or urine or abnormalities in imaging tests). Lab Interpretation Abnormal (test code = 93659-9) [facility] HospitalCREATINE [id number] 05:22:46 Test Item Value Reference Range Interpretation Comments CK (test code = 5339183418) 562 U/L 33-194 H Lab Interpretation (test code = Abnormal 82531-9) [facility] HospitalPREGNANCY TEST, [id number] 05:20:36 Test Item Value Reference Range Interpretation Comments PREG SERUM (test code Negative = 6430950640) OMARI (test code = OMARI) Less than 10 IU/L. ?If low titer or ectopic is suspected, resubmit specimen in 48-[address] [facility] HospitalPOCT [id number] 04:53:00 Test Item Value Reference Range Interpretation Comments POCT PREG (test code = 1605) negative On board controls acceptable with positive C Line (test code = 3574) POCT PREG LOT # (test code = 3575) [id number] POCT PREG TEST DATE (test 01/13/2023 code = 3576) Lab Interpretation (test code = Normal 80711-8) [facility] HospitalHCG, [id number] 05:46:32 Test Item Value Reference Range Interpretation Comments HCG, QUANTITATIVE 176 MIU/ML SEE BELOW E XPECTED (test code = 2506) VALUES FO R HCG GST.AGE UNITS RANGE GST. AGE UNITS RANGE3 WEEKS MS U/ML 6-71 10 WEEKS M IU/ML 46,509-186,9774 WEEKS MIU/ML 10-750 1 2 WEEKS MIU/ML 27,832-2 10,6125 WEEKS MIU/ML 21 7-7,138 14 WEEKS MIU/M L 13,950-62,5306 WEEKS MIU/ML 158-31,7 95 15 WEEKS MIU/ML 12,039-70,9717 WEEKS MIU/ML 3,697-16 3,563 16 WEEKS MIU/ML 9,040-56,4518 W EEKS MIU/ML 32,065-1 49,571 17 WEEKS MIU/ML 8,175-55,8689 W EEKS MIU/ML 63,803-1 51,410 18 WEEKS MIU/ML 8,099-58,176MAL ES and NON- FE MALES . . . . . . . . M IU/ML 7-9SQGS-BIDRDCW ADEN FEMALES . . . . . . . . . . . . MIU/M L <=7 UNLESS OTHERWIS E INDICATED, ALL TESTING PERFORMED [facility], [id number] [place] [address] DIRECTOR: LIBRADO ARCEO M.D. [place] NUMBER [id number] [facility] ACCREDITATION N O. [id number] XR CHEST 1 [id number] 03:41:35No acute pulmonary disease. RL: ?3201 History: cough Ordering Physician: GRACE SALMON COMPARISON:None FINDINGS: Single AP view the chest is provided. The trachea is midline. The cardiomediastinal silhouette is within normal limits. ?The lungs areclear. ?The costophrenic recesses are clear. Comb, Radiant Results Inft User - 09/11/2020 10:42 PM CDT History: cough Ordering Physician: GRACE SALMON COMPARISON:NoneFINDINGS: Single AP view the chest is provided. The trachea is midline. The cardiomediastinal silhouette is within normal limits. The lungs areclear. The costophrenic recesses are clear.IMPRESSIONNo acute pulmonary disease.RL: 3201 [facility] AustinCOVID-19 (ID NOW RAPID TESTING)2020-09-12 02:28:09 Test Item Value Reference Range Interpretation Comments SARS-CoV-2 Rapid ID NOW Not Detected Not Detected (test code = 24152-3) OMARI (test code = OMARI) ID NOW COVID-19 Assay is an isothermal nucleic acid amplification test intended for the qualitative detection of nucleic acid from SARS-CoV-2 viral RNA in nasopharyngeal ([employer]ORNEY) specimens. It is used under Emergency Use [...] indicated. Lab Interpretation Normal (test code = 74770-5) [facility] [id number] 02:09:00 Test Item Value Reference Range Interpretation Comments POCT PREG (test code = 1605) negative On board controls acceptable with present C Line (test code = 3574) POCT PREG LOT # (test code = 3575) [id number] POCT PREG TEST DATE (test 03/15/2022 code = 3576) Lab Interpretation (test code = Normal 80914-4) [facility] [id number] 20:23:00 Test Item Value Reference Range Interpretation Comments POCT PREG (test code = 1605) Negative On board controls acceptable with C Yes Line (test code = 3574) POCT PREG LOT # (test code = 3575) POCT PREG TEST DATE (test code = 3576) [facility] [id number] 20:23:00 Test Item Value Reference Range Interpretation Comments POCT PREG (test code = 1605) Negative On board controls acceptable with C Yes Line (test code = 3574) POCT PREG LOT # (test code = 3575) POCT PREG TEST DATE (test code = 3576) [facility] WITH [id number] 10:36:00 Test Item Value Reference Range Interpretation [...] RDW-SD (test code = 42.5 fL 39-49.9 19294-8) RDW-CV (test code = 12.1 % 12-15.5 788-0) PLT (test code = See_Comment L [Automated 777-3) message] The sy stem which generated this result transmitted reference range : 166 - 358 10*3/ ?L. The reference r hugo was not used to interpret this result as normal/abnormal . MPV (test code = 10.4 fL 9.5-12.9 04275-9) NRBC/100 WBC (test See_Comment [Automat ed code = 6591752908) message] The system which generated this result transmitted reference range : 0.0 - 10.0 /100 WBCs. The refer ence range was not u sed to interpret th is result as normal/abnormal . NRBC x10^3 (test code <0.01 See_Comment [Auto mated = 6057279775) message] The s ystem which generated this result transmitted reference range : 10*3/?L. The reference range was not used to interpret this result as normal/abnormal . GRAN MAT (NEUT) % 64.8 % (test code = 770-8) IMM GRAN % (test code 0.80 % = 2210926441) LYMPH % (test code = 22.6 % 736-9) MONO % (test code = 10.4 % 5905-5) EOS % (test code = 1.1 % 713-8) BASO % (test code = 0.3 % 706-2) GRAN MAT x10^3(ANC) 7.01 10*3/uL 1.88-7.09 (test code = 1184602653) IMM GRAN x10^3 (test 0.09 10*3/uL 0-0.06 H code = 5889886207) LYMPH x10^3 (test code 2.45 10*3/uL 1.32-3.29 = 731-0) MONO x10^3 (test code 1.12 10*3/uL 0.33-0.92 H = 742-7) EOS x10^3 (test code = 0.12 10*3/uL 0.03-0.39 711-2) BASO x10^3 (test code 0.03 10*3/uL 0.01-0.07 = 704-7) Lab Interpretation Abnormal (test code = 83743-0) [facility] HospitalRHO (D) IMMUNE [id number] 03:46:32 Test Item Value Reference Range Interpretation Comments RHIG CANDIDATE? No- see comment Patient i s not a (test code = candidate for R hIg- 5055) Patient is Rh Positive.Perfor med at [facility] Laboratory Services - [facility] Blood [address] [place] [phone] Free: [phone] A No. [id number] [facility] HospitalAD OR IVETH ONLY - [id number] 01:33:00 Test Item Value Reference Range Interpretation Comments RPR (Qualitative) (test code = Nonreactive Nonreactive 86726-7) Lab Interpretation (test code = Normal 76196-9) [facility] [id number] 23:57:00 Test Item Value Reference Range Interpretation Comments VENOUS BASE EXCESS, mEq/L CORD (test code = 9362190295) VENOUS PH, CORD (test 7.25-7.45 code = 7985125999) VENOUS PC02, CORD See_Comment [Automate d message] The (test code = system which ge nerated 3065983564) this result tra nsmitted reference range : 27 - 49 mmHg. The refer ence range was not used to interpret this result as normal/abnormal . VENOUS PO2, CORD (test See_Comment [Aut omated message] The code = 5585431694) system wh ich generated this result tra nsmitted reference range : 17 - 41 mmHg. The refer ence range was not used to interpret this result as normal/abnormal . VENOUS BICARBONATE, See_Comment [Automa sue message] The CORD (test code = system whi ch generated 0228692143) this result tra nsmitted reference range : 12 - 29 mEq/L. The refe rence range was not used to interpret this result as normal/abnormal . [facility] HospitalHepatitis B Surface [id number] 21:34:00 Test Item Value Reference Range Interpretation Comments HBsAg Semi-Quantitative (test code = Negative Negative 5195-3) [facility] HospitalHIV 1/2 AG-AB WITH [id number] 19:45:00 Test Item Value Reference Range Interpretation Comments HIV Negative Negative Semi-quantitative (test code = 28802-0) OMARI (test code = Non-reactive for HIV-1 OMARI) antigen and HIV-1/HIV-2 antibodies. ?No laboratory evidence of HIV infection. ?Repeat in 2-4 weeks if acute HIV infection is suspected. [facility] HospitalType and Screen - ONCE [id number] 18:48:31 Test Item Value Reference Range Interpretation Comments ABO & RH (test code O Positive Performe d at [facility] = 20) Laboratory Serv [facility] Blood Bank[address] [place], [place] [address]Toll Free: [phone] A No. [id number] IAT (test code = Negative Performed a t [facility] 1185) Laboratory [facility] Blood [facility] [place], [place] [address]Toll Free: [phone] A No. [id number] [facility] HospitalCBC WITH [id number] 18:12:00 Test Item Value Reference Range Interpretation [...] RDW-SD (test code = 43.8 fL 39-49.9 56859-5) RDW-CV (test code = 12.4 % 12-15.5 788-0) PLT (test code = See_Comment L [Automated 777-3) message] The sy stem which generated this result transmitted reference range : 166 - 358 10*3/ ?L. The reference r hugo was not used to interpret this result as normal/abnormal . MPV (test code = 10.2 fL 9.5-12.9 92869-1) NRBC/100 WBC (test See_Comment [Automat ed code = 7374566632) message] The system which generated this result transmitted reference range : 0.0 - 10.0 /100 WBCs. The refer ence range was not u sed to interpret th is result as normal/abnormal . NRBC x10^3 (test code <0.01 See_Comment [Auto mated = 4110523800) message] The s ystem which generated this result transmitted reference range : 10*3/?L. The reference range was not used to interpret this result as normal/abnormal . GRAN MAT (NEUT) % 65.8 % (test code = 770-8) IMM GRAN % (test code 1.00 % = 0311160159) LYMPH % (test code = 22.2 % 736-9) MONO % (test code = 9.6 % 5905-5) EOS % (test code = 1.1 % 713-8) BASO % (test code = 0.3 % 706-2) GRAN MAT x10^3(ANC) 4.13 10*3/uL 1.88-7.09 (test code = 9317755219) IMM GRAN x10^3 (test 0.06 10*3/uL 0-0.06 code = 6998993475) LYMPH x10^3 (test code 1.39 10*3/uL 1.32-3.29 = 731-0) MONO x10^3 (test code 0.60 10*3/uL 0.33-0.92 = 742-7) EOS x10^3 (test code = 0.07 10*3/uL 0.03-0.39 711-2) BASO x10^3 (test code <0.03 0.01-0.07 = 704-7) Lab Interpretation Abnormal (test code = 88148-4) [facility] [id number] 19:45:00 Test Item Value Reference Range Interpretation Comments POCT PREG (test code = 1605) Positive On board controls acceptable with C Yes Line (test code = 3574) POCT PREG LOT # (test code = 3575) POCT PREG TEST DATE (test code = 3576) [facility] URINALYSIS W/O SPECIFIC [id number] 19:45:00 Test Item Value Reference Range Interpretation [...] code = 3257) neg Negative - Negative [facility] HospitalCB W/AUTO [id number] 20:53:00 Test Item Value Reference Range Interpretation [...] 0.0 x10 3/uL 0.0-0.1 N BASIC METABOLIC [id number] 20:11:00 Test Item Value Reference Range Interpretation [...] mg/dL 8.5-10.5 N = CA) LIVER FUNCTION [id number] 20:11:00 Test Item Value Reference Range Interpretation [...] code = 46 U/L 42-121 N ALKP) [id number] 20:11:00 Test Item Value Reference Range Interpretation Comments ALCOHOL (test code = 6 mg/dl Interpr etive Data:il: ALC) Ethanol Level T o convert into legal unit s, divide result by 1,000 DRUGS OF ABUSE SCREEN [id number] 19:58:00 Test Item Value Reference Range Interpretation Comments UR COCAINE (test code NEGATIVE NEGATIVE This i s a toxicology = COCAU) qualitative scr eening test only. Ifco nfirmatory testing is maxime red please request drug screenconfirmat ion. These results are unc onfirmed and should beus ed only for medical pur poses. Cut-off concent ration for Cocaine is 300 ng/mLRecommende d screening cut-o ff concentrations by theGu[facility] Hospitalce Ab use and [facility] Administration. UR CANABINOIDS (test POSITIVE NEGATIVE A This is a toxicology code = CANU) qualitative scr eening test only. Ifco nfirmatory testing is maxime red please request drug screenconfirmat ion. These results are unc onfirmed and should beus ed only for medical pur poses. Cut-off concent ration for THC is 50 ng/mLRecommende d screening cut-o ff concentrations by theNew [facility] Institute [facility] Las Vegastance Ab use and [facility] Administration. UR AMPHETAMINE (test POSITIVE NEGATIVE A The ing estion of natural code = AMPHU) herbal and bryce nt productscontain ing Ephedra/Ephedra -Metabolit es can produce in urineone or mor e substances capa ble of cross-reacting withAmphetamine /Methamphe davonte keane says. This testprovides a preliminary res ult only. A more specificalterna tive chemical method must be used to obtain aconfirmed analytical resu lt. This is a toxicology qualitative scr eening test only. Ifco nfirmatory testing is maxime red please request drug screenconfirmat ion. These results are unc onfirmed and should beus ed only for medical pur poses. Cut-off concent ration for Amphetamines is 1000 ng/mLRecommende d screening cut-o ff concentrations by [facility] and [facility]. UR BARBITURATE (test NEGATIVE NEGATIVE This is a toxicology code = BARBQLU) qualitative screening test only. Ifco nfirmatory testing is maxime red please request drug screenconfirmat ion. These results are unc onfirmed and should beus ed only for medical pur poses. Cut-off concent ration for Barbiturates is 200 ng/mLRecommende d screening cut-o ff concentrations by [facility] and [facility]. UR BENZODIAZEPINE NEGATIVE NEGATIVE This is a toxicology (test code = BENZU) qualitat macho screening test only. Ifco nfirmatory testing is maxime red please request drug screenconfirmat ion. These results are unc onfirmed and should beus ed only for medical pur poses. Cut-off concent ration for Benzodiazepines is 200 ng/mLRecommende d screening cut-o ff concentrations by [facility] Ab use and [facility]. UR OPIATES QUAL (test NEGATIVE NEGATIVE This i s a toxicology code = OPIAQLU) qualitative screening test only. Ifco nfirmatory testing is maxime red please request drug screenconfirmat ion. These results are unc onfirmed and should beus ed only for medical pur poses. Cut-off concent ration for Opiates is 300 ng/mLRecommende d screening cut-o ff concentrations by [facility] Ab use and [facility]. UR PHENCYCLIDINE NEGATIVE NEGATIVE This is a t oxicology (PCP) (test code = qualitati ve screening PHENCU) test only. Ifco nfirmatory testing is maxime red please request drug screenconfirmat ion. These results are unc onfirmed and should beus ed only for medical pur poses. Cut-off concent ration for PCP is 25 ng/mLRecommende d screening cut-o ff concentrations by [facility] Ab use [facility]. HCG SERUM [id number] 19:53:00 Test Item Value Reference Range Interpretation Comments HCG SERUM QUAL POSITIVE NEGATIVE This is a makayla litative (test code = HCGQL) screenin g test.The quantitative Bh cg may be helpful.Weakly positive results should be repeated in 48 hours. URINALYSIS [id number] 19:50:00 Test Item Value Reference Range Interpretation [...] = MUCU) 1+ /LPF NONE SEEN MOLECULAR [id number] 15:53:00 Test Item Value Reference Range Interpretation Comments N gonorrhea by Amp Det Negative *NA*(01/06/17 (APTIMA) (test code = N 10:53 AM) gonorrhea by Amp Det (APTIMA)) [facility] [id number] 15:53:00 Test Item Value Reference Range Interpretation Comments Source APTIMA (test Urine *NA*(01/06/17 code = Source APTIMA) 10:53 AM) [facility] [id number] 15:53:00 Test Item Value Reference Range Interpretation Comments C trachomatis by Amp Det Negative (APTIMA) (test code = C *NA*(01/06/17 10:53 trachomatis by Amp Det AM) (APTIMA)) [facility] AND [id number] 15:53:00 Test Item Value Reference Range Interpretation Comments UA Bacteria (test code = UA Few /HPF Bacteria) [facility] [id number] 15:53:00 Test Item Value Reference Range Interpretation Comments UA RBC (test code = 0-2 /HPF See_Comment [Automa sue message] The UA RBC) system which ge nerated this result tra nsmitted reference range : <=2. The reference range was not used to interpr et this result as kaelyn l/abnormal. [facility] [id number] 15:53:00 Test Item Value Reference Range Interpretation Comments UA WBC (test code = UA WBC) 0-2 /HPF [facility] [id number] 15:53:00 Test Item Value Reference Range Interpretation Comments UA Sq Epi (test code = UA Sq Epi) Few /LPF [facility] [id number] 15:53:00 Test Item Value Reference Range Interpretation Comments UA Leuk Est (test Negative (01/06/17 10:53 code = UA Leuk Est) AM) [facility] [id number] 15:53:00 Test Item Value Reference Range Interpretation Comments UA Blood (test code = Trace *ABN*(01/06/17 UA Blood) 10:53 AM) [facility] [id number] 15:53:00 Test Item Value Reference Range Interpretation Comments UA Bili (test code = Negative *NA*(01/06/17 UA Bili) 10:53 AM) [facility] [id number] 15:53:00 Test Item Value Reference Range Interpretation Comments UA Protein (test code Negative (01/06/17 = UA Protein) 10:53 AM) [facility] [id number] 15:53:00 Test Item Value Reference Range Interpretation Comments UA Ketones (test code Negative *NA*(01/06/17 = UA Ketones) 10:53 AM) [facility] [id number] 15:53:00 Test Item Value Reference Range Interpretation Comments UA Glucose (test code Negative (01/06/17 = UA Glucose) 10:53 AM) [facility] [id number] 15:53:00 Test Item Value Reference Range Interpretation Comments UA Spec Grav (test code = UA Spec 1.015 1 Grav) [facility] [id number] 15:53:00 Test Item Value Reference Range Interpretation Comments UA pH (test code = UA pH) 7.0 1 5.0-8.0 [facility] [id number] 15:53:00 Test Item Value Reference Range Interpretation Comments UA Turbidity (test code = Clear (01/06/17 UA Turbidity) 10:53 AM) [facility] [id number] 15:53:00 Test Item Value Reference Range Interpretation Comments UA Color (test code = Yellow *NA*(01/06/17 UA Color) 10:53 AM) [facility] [id number] 15:53:00 Test Item Value Reference Range Interpretation Comments Micro? (test code = Performed (01/06/17 10:53 Micro?) AM) [facility] [id number] 15:53:00 Test Item Value Reference Range Interpretation Comments UA Nitrite (test code Negative (01/06/17 = UA Nitrite) 10:53 AM) [facility] AND [id number] 15:53:00 Test Item Value Reference Range Interpretation Comments UA Urobilinogen (test code = UA 1.0 0.1-1.0 Urobilinogen) [facility]2017-10-24 15:53:00 Test Item Value Reference Range Interpretation Comments U Creatinine (test code = U 125.00 Creatinine) [facility]2017-10-24 15:53:00 Test Item Value Reference Range Interpretation Comments U Prot/Creat (test code = U Prot/Creat) 0.2 [facility]2017-10-24 15:53:00 Test Item Value Reference Range Interpretation Comments U Protein (test code = U Protein) 19.2 [facility]2017-10-24 15:50:00 Test Item Value Reference Range Interpretation Comments CO2 (test code = CO2) 20 24-32 [facility]2017-10-24 15:50:00 Test Item Value Reference Range Interpretation Comments Chloride Lvl (test code = Chloride Lvl) 107 95-109 [facility]2017-10-24 15:50:00 Test Item Value Reference Range Interpretation Comments Potassium Lvl (test code = Potassium 3.5 3.5-5.1 Lvl) [facility]2017-10-24 15:50:00 Test Item Value Reference Range Interpretation Comments AST (test code = AST) 16 See_Comment [Auto mated message] The system which ge nerated this result transmit sue reference range : <=37. The reference range was not used to interpr et this result as kaelyn l/abnormal. [facility]2017-10-24 15:50:00 Test Item Value Reference Range Interpretation Comments Albumin Lvl (test code = Albumin Lvl) 2.9 3.5-5.0 [facility]2017-10-24 15:50:00 Test Item Value Reference Range Interpretation Comments ALT (test code = ALT) 14 See_Comment [Auto mated message] The system which ge nerated this result transmit sue reference range : <=65. The reference range was not used to interpr et this result as kaelyn l/abnormal. [facility] [id number] 15:50:00 Test Item Value Reference Range Interpretation Comments Alk Phos (test code = Alk Phos) 136 39-136 [facility] [id number] 15:50:00 Test Item Value Reference Range Interpretation Comments Bili Total (test code = Bili Total) 0.6 0.2-1.3 [facility] [id number] 15:50:00 Test Item Value Reference Range Interpretation Comments U Opiate Scr (test Negative *NA*(01/06/17 code = U Opiate Scr) 10:50 AM) [facility] [id number] 15:50:00 Test Item Value Reference Range Interpretation Comments U Cannab Scr (test Negative *NA*(01/06/17 code = U Cannab Scr) 10:50 AM) [facility] [id number] 15:50:00 Test Item Value Reference Range Interpretation Comments UDS Note (test code = See Note (01/06/17 UDS Note) 10:50 AM) [facility] [id number] 15:50:00 Test Item Value Reference Range Interpretation Comments U Phencyc Scr (test Negative *NA*(01/06/17 code = U Phencyc Scr) 10:50 AM) [facility] [id number] 15:50:00 Test Item Value Reference Range Interpretation Comments U Lori Scr (test code Negative *NA*(01/06/17 = U Lori Scr) 10:50 AM) [facility] [id number] 15:50:00 Test Item Value Reference Range Interpretation Comments U Cocaine Scr (test Positive *ABN*(01/06/17 code = U Cocaine Scr) 10:50 AM) [facility] [id number] 15:50:00 Test Item Value Reference Range Interpretation Comments U Amph Scr (test code Negative *NA*(01/06/17 = U Amph Scr) 10:50 AM) [facility] [id number] 15:50:00 Test Item Value Reference Range Interpretation Comments U Benzodia Scr (test Negative *NA*(01/06/17 code = U Benzodia Scr) 10:50 AM) [id number] 15:50:00 Test Item Value Reference Range Interpretation Comments Basophils (test code = 0.5 See_Comment [Aut omated message] The Basophils) system which ge nerated this result tra nsmitted reference range : <=1.0. The reference r hugo was not used to int erpret this result as normal/abnormal . [id number] 15:50:00 Test Item Value Reference Range Interpretation Comments Eosinophils (test code = 0.3 See_Comment [A utomated message] The Eosinophils) system which ge nerated this result tra nsmitted reference range : <=4.0. The reference r hugo was not used to int erpret this result as normal/abnormal . [facility] H[id number] 15:50:00 Test Item Value Reference Range Interpretation Comments Monocytes # (test code 0.7 See_Comment [Aut omated message] The = Monocytes #) system which generated this result tra nsmitted reference range : <=0.8. The reference r hugo was not used to int erpret this result as normal/abnormal . [facility] H[id number] 15:50:00 Test Item Value Reference Range Interpretation Comments Segs-Bands # (test code = Segs-Bands #) 7.8 1.5-8.1 [facility] [id number] 15:50:00 Test Item Value Reference Range Interpretation Comments Lymphocytes # (test code = Lymphocytes 1.4 1.0-5.5 #) [facility] [id number] 15:50:00 Test Item Value Reference Range Interpretation Comments Monocytes (test code = Monocytes) 7.2 2.0-12.0 [facility] [id number] 15:50:00 Test Item Value Reference Range Interpretation Comments Lymphocytes (test code = Lymphocytes) 14.0 20.0-40.0 [facility] H[id number] 15:50:00 Test Item Value Reference Range Interpretation Comments Segs (test code = Segs) 78.0 45.0-75.0 [facility] H[id number] 15:50:00 Test Item Value Reference Range Interpretation Comments MPV (test code = MPV) 9.0 7.4-10.4 [facility] H[id number] 15:50:00 Test Item Value Reference Range Interpretation Comments Platelet (test code = Platelet) 195 133-450 [facility] H[id number] 15:50:00 Test Item Value Reference Range Interpretation Comments RDW (test code = RDW) 13.3 11.5-14.5 [facility] [id number] 15:50:00 Test Item Value Reference Range Interpretation Comments MCH (test code = MCH) 31.4 pg 27.0-31.0 [facility] H[id number] 15:50:00 Test Item Value Reference Range Interpretation Comments MCHC (test code = MCHC) 34.0 32.0-36.0 [facility] H[id number] 15:50:00 Test Item Value Reference Range Interpretation Comments MCV (test code = MCV) 92.2 80.0-98.0 [facility] [id number] 15:50:00 Test Item Value Reference Range Interpretation Comments Hct (test code = Hct) 36.4 36.0-48.0 [facility] H[id number] 15:50:00 Test Item Value Reference Range Interpretation Comments RBC (test code = RBC) 3.95 4.20-5.40 [facility] H[id number] 15:50:00 Test Item Value Reference Range Interpretation Comments Hgb (test code = Hgb) 12.4 12.0-16.0 [facility] Ho[id number] 15:50:00 Test Item Value Reference Range Interpretation Comments WBC (test code = WBC) 10.0 3.7-10.4 [facility] [id number] 15:50:00 Test Item Value Reference Range Interpretation Comments HIV. (test code = Negative *NA*(01/06/17 HIV.) 10:50 AM) [facility] [id number] 15:50:00 Test Item Value Reference Range Interpretation Comments Hep Bs Ag (test code Negative *NA*(01/06/17 = Hep Bs Ag) 10:50 AM) [facility] [id number] 15:50:00 Test Item Value Reference Range Interpretation Comments Treponemal Scr (test Non Reactive code = Treponemal Scr) *NA*(01/06/17 10:50 AM) [facility] [id number] 15:50:00 Test Item Value Reference Range Interpretation Comments Rubella IgG (test code = Rubella IgG) 66.[address] [facility] [id number] 15:50:00 Test Item Value Reference Range Interpretation Comments Hep Bs Ag (test code Negative *NA*(01/06/17 = Hep Bs Ag) 10:50 AM) [facility] [employer] [id number] 15:50:00 Test Item Value Reference Range Interpretation Comments Rhig Reqd (test code = See Note 1(01/06/17 Rhig Reqd) 10:50 AM) [facility] [employer] [id number] 15:50:00 Test Item Value Reference Range Interpretation Comments Antibody Scrn (test Negative (01/06/17 code = Antibody Scrn) 10:50 AM) [facility] [employer] [id number] 15:50:00 Test Item Value Reference Range Interpretation Comments ABO/Rh (test code = ABO/Rh) O POS [facility] [employer] [id number] 15:50:00 Test Item Value Reference Range Interpretation Comments B/C Ratio (test code = B/C Ratio) 11 6-[address] [facility] [employer] [id number] 15:50:00 Test Item Value Reference Range Interpretation Comments Globulin (test code = Globulin) 4.2 2.7-4.[address] [facility] [employer] [id number] 15:50:00 Test Item Value Reference Range Interpretation Comments AGAP (test code = AGAP) 13.5 10.0-20.[address] [facility] [employer] [id number] 15:50:00 Test Item Value Reference Range Interpretation Comments A/G Ratio (test code = A/G Ratio) 0.7 0.7-1.[address] [facility] [employer] [id number] 15:50:00 Test Item Value Reference Range Interpretation Comments eGFR (test code = eGFR) [address] [facility] [employer] [id number] 15:50:00 Test Item Value Reference Range Interpretation Comments Sodium Lvl (test code = Sodium Lvl) 137 135-[address] [facility] [employer] [id number] 15:50:00 Test Item Value Reference Range Interpretation Comments BUN (test code = BUN) 6 7- [facility] [employer] [id number] 15:50:00 Test Item Value Reference Range Interpretation Comments Glucose Lvl (test code = Glucose Lvl) 87 70-99 [facility]2017-10-24 15:50:00 Test Item Value Reference Range Interpretation Comments Creatinine Lvl (test code = Creatinine 0.57 0.50-1.40 Lvl) [facility]2017-10-24 15:50:00 Test Item Value Reference Range Interpretation Comments Calcium Lvl (test code = Calcium Lvl) 8.8 8.5-10.5 [facility]2017-10-24 15:50:00 Test Item Value Reference Range Interpretation Comments Total Protein (test code = Total 7.1 6.4-8.4 Protein) [facility]
[2021-11-26 06:35] LABS: Urine Blood Trace-intact (Negative); Urine Glucose Negative (Negative); Urine Protein Negative (Negative); Urine Specific Gravity 1.025 (1.005-1.030); Urine pH 6.5 (5.0-7.0)
[2021-11-26 06:37] LABS: Absolute Lymphocytes (CBC) 1.7 K/uL (0.7-4.9); Hematocrit 32.2 % (36.0-45.0); Lymphocytes % 23.7 % (15.3-44.8); MCV 83.8 fL (80-100); MPV 7.9 fL (7.6-11.3); RBC Red Blood Cell Count 3.84 M/uL (3.86-4.86)
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
[2021-11-26 06:52] LABS: Potassium 3.8 mmol/L (3.5-5.1)
--- NOTE | 2021-11-26 06:54 | RAD REPORT ---
EXAM DESCRIPTION: US - OB Limited - 11/26/2021 5:56 am CLINICAL HISTORY: ABD PAIN COMPARISON: OB Limited dated 07/19/2021 FINDINGS: Normal shaped gestational sac is seen in the fundal portion of the endometrial cavity. Sma ll yolk sac is seen. Gestational sac and yolk sac measurements correspond to a 6 week 2 day age. No pole is seen within the gestational sac. No intrauterine hematoma or mass identified. Myomet rium is normal in the normal sized uterus. No blood or fluid in the cul de sac. No adnexal mass to suspect ectopic . Ovaries are unremarkable with normal blood flow in the ovarian stroma on Doppler assessment. IMPRESSION: There is a 6 week 2 day sized intrauterine gestational sac with yolk sac but no po le. No intrauterine hematoma or mass. No adnexal abnormality to suspect ectopic . Findings could still be an early IUP rather than demise. Follow-up imaging can be performed if serial HCG values indicate ongoing .
[2021-11-26 07:34] VITALS: TEMP 98.5
[2021-11-26 07:41] VITALS: O2SAT 100
[2021-11-26 07:51] VITALS: BP 102/47
== END 2021-11-26 07:16 | disposition home or self-care (01) ==
LOC: ER 04:22
DX: O26.891 Other specified pregnancy related conditions, first trimester (principal); O99.341 Other mental disorders complicating pregnancy, first trimester; F20.9 Schizophrenia, unspecified; Z3A.01 Less than 8 weeks gestation of pregnancy
CPT/HCPCS: 36415; 76815; 80048; 81003; 85025; 86900; 86901; 99284

== ENCOUNTER 2022-01-09 20:02 | Emergency (ER) | payer OTHER ==
--- OUTSIDE RECORDS SUMMARY | 2022-01-09 20:16 | XMS REPORT | Continuity of Care Document ---
:1995 Author Organization [facility] t Address [address] [place] [address] Care Team Providers Name Role Phone UNKNOWN, REFFERING Primary Care Physician Unavailable SENAIT LEE Attending Clinician Unavailable SENAIT LEE Attending Clinician Unavailable AUTUMN RAMIREZ Attending Clinician Unavailable Doctor Unassigned, [place] Attending Clinician Unavailable Donald BETANCOURT, Ligia Baird Attending Clinician LEONEL FOSTER Attending Clinician Unavailable Laurie Fiore MD Attending Clinician Leonel Miller MD Attending Clinician Britta Hopper MD Attending Clinician Leonel Foster MD Attending Clinician BEN CASTILLO Attending Clinician Unavailable Ben Lugo Attending Clinician MITALI ROSEN Attending Clinician Unavailable Silas KHOURYPMitali Attending Clinician Claire BARDALES, Grace Capellan Attending Clinician CHANELL HOLT Attending Clinician Unavailable Miguel Angel Leon DO Attending Clinician Emily Biswas DO Attending Clinician Susy RN, Linnette M Attending Clinician [facility]ending [facility] Unavailable Heaven Hwang Attending Clinician [phone] HEAVEN GUADALUPE Attending Clinician Unavailable Anamaria Ann Attending Clinician Yoel HERNÁNDEZ, Yamel Fischer Attending Clinician Eric Pérez Attending Clinician Leonel Ryan Attending Clinician LEONEL MILLER Admitting Clinician Unavailable Leonel Miller MD Admitting Clinician Yamel Diallo MD Admitting Clinician Leonel Ryan Admitting Clinician Payers Payer Name Policy Type Policy Number Effective Date Expiration Date Ivana ruiz [facility] [id number] 2017 00:00:00 PLUS Problems Condition Condition Condition Status Onset Resolution Last Treating Co mments Source Name Details Category Date Date Treatment Clinician Date Obesity in Obesity in Disease Active 2021-03 U nivers , , 0-24 [place] [address] [place] [address] Missed Missed Disease Active 2021-03 Univers menses menses 0-24 ity of 00:00: [address] Disease Active 2021-03 Uni vers examinatio examinatio 0-24 it y of n or test, n [place] test, [place] positive positive 00 Medica l result result [place] Nausea and Nausea and Disease Active 2021-03 U nivers vomiting vomiting 0-24 ity of during during 00:00: [place] 00 [facility] Morbid Morbid Disease Active Univers obesity obesity 7-21 [place] of with body with [place] mass index mass index 00 Me dical of of Branch 40.0-49.9 40.0-49.9 Psychosis, Psychosis, Disease Active U nivers unspecifie unspecifie 7-21 it y of d d 00:00: [place] psychosis psychosis [facility] type type [place] Other Other Disease Active 2020- Univers general general 5-12 ity of counseling counseling [place] and advice and advice 00 Me dical for for [place] contracept contracept macho macho management management Normal Normal Disease Active Univers labor labor 2-05 ity of 00:00: [place] [facility] 40 weeks 40 weeks Disease Active Unive rs gestation gestation 2-05 ity of of of 00:00: [place] 00 [facility] Liveborn Liveborn Disease Active Unive rs , of infant, of 2-05 it y of resendez [place]endez 00:[place] , , 00 Me dical born in born in [facility] by vaginal by vaginal delivery delivery Mood Mood Disease Active 2018-03 Methodi disorder disorder 05-12 00:00: Hospita 00 l Schizophre Schizophre Disease Active 2018-03 M ethodi jaylen jaylen 2 st 00:00: Hospita 00 l Marijuana Marijuana Disease Active Uni vers use use 8-19 ity of 00:00: [place] [facility] High risk High risk Disease Active Uni vers , , 8-19 it y of antepartum ante[place] [facility] Multiparit Multiparit Disease Active 2019 U nivers y y 8-19 ity of 00:00: [place] [facility] Tobacco Tobacco Disease Active 2019 Univers smoking smoking 8-19 ity of affecting affecting 00:[place] , , [place] dical antepartum antepartum Br anch Marijuana Marijuana Disease Active 2019 Uni vers use use 8-19 ity of 00:00: [place] [facility] BMI BMI Disease Active 2017- Univers 29.0-29.9, 29.0-29.9, 2-20 it y of adult adult 00:00: [place] [facility] BMI BMI Disease Active 2017-03 Univers 25.0-25.9, 25.0-25.9, 2-20 it y of adult adult 00:00: [place] [facility] OTHERS OTHERS Diagnosis Active 2017-032017-12-23 M emoria Active 0-04 16:48:00 l 12/17/2017 00:00: Kavin blum 00 [facility] LABOR LABOR Diagnosis Active 2016-032017-01-06 Mem oria Active 0 12:15:00 l 01/06/2017 00:00: Kvain blum 00 [facility] VAGINAL VAGINAL Diagnosis Active 2016-032017-01-15 Memoria DELIVERY DELIVERY 024 15:32:00 l Active 00:00: [place] 01/06/2017 00 [facility] Disease Active Met hodi 1-15 st 00:00: Hospita 00 l Exposure Exposure Disease Active Unive rs to STD to STD 1-21 ity of 00:00: [place] 00 Medical Branch Date of Date of Disease Active 2012-03 Univers last last 2-20 ity of menstrual menstrual 00:[place] period period 00 Medical (LMP) (LMP) Branch unknown unknown Bipolar Bipolar Disease Active 2012-03 Univers disorder disorder 2 ity of 00:00: [place] 00 Medical Branch Attention Attention Disease Active 2012-03 Overview: Univers deficit deficit 2- Formattin ity o f hyperactiv hyperactiv 00:00: g of this [place] ity ity 00 note Medical disorder disorder might be Bran ch (ADHD) (ADHD) different from the original. ICD10 Diagnosis Term Hedis Nurse Utility Bipolar 1 Bipolar 1 Disease Active 2012-03 Uni vers disorder disorder 2- ity of 00:00: [place] 00 Medical Branch Bipolar Bipolar Problem 2018-07-06 Nv moria disorder, disorder, 16:23:35 l unspecifie unspecifie He rmann d d 07/06/2018 [place] Anxiety Anxiety Problem 2018-07-06 Nv moria disorder, disorder, 16:23:35 l unspecifie unspecifie He rmann d d 07/06/2018 [facility] Schizophre Schizophr Problem 2018-07-06 Memoria jaylen, enia, 16:23:35 l unspecifie unspecifie He rmann d d 07/06/2018 [facility] Illness, Illness, Problem 2017-01-11 Memoria unspecifie unspecifie 01:38:46 l d d [place] 01/11/2017 [facility] Anxiety Anxiety Problem Resolve 2018-07-06 M emoria (finding) (finding) d 16:23:35 l Resolved [place] Problem 07/06/2018 [facility] Chronic Chronic Problem Resolve 2018-07-06 M emoria schizophre schizophre d 16:23:35 l jaylen jaylen [place] (disorder) (disorder) Resolved Problem 07/06/2018 [facility] ILLNESS, ILLNESS, Diagnosis Active 2017-01-06 Memoria UNSPECIFIE UNSPECIFIE 12:15:00 l D D Active [place] [facility] ENCOUNTER ENCOUNTER Diagnosis Active 2017-01-15 Memoria FOR FOR 15:32:00 l FULL-TERM FULL-TERM Herm yomaira UNCOMPLICA UNCOMPLICA SUE DE SUE DE Active [facility] Smoking Smoking Problem 2018-07-06 Me moria (tobacco) (tobacco) 16:23:35 l complicati complicati He gabino sharp , , third third trimester trimester 07/06/2018 [facility] Nicotine Nicotine Problem 2018-07-06 Memoria dependence dependence 16:23:35 l , , [place] cigarettes cigarettes , , uncomplica uncomplica sue sue 07/06/2018 [facility] Other Other Problem 2018-07-06 Memor ia mental mental 16:23:35 l disorders disorders Herm yomaira complicati complicati aron sharp , , third third trimester trimester 07/06/2018 [facility] Patient Patient Problem Resolve 2018-07-06 2018-07-06 Memoria currently currently d 4- 16:23:35 16:23:35 l 00:00: Kavin blum (finding) (finding) 00 Resolved 06/24/2015 Problem 07/06/2018 [facility] History of Past Illness Condition Condition Condition Status Onset Resolution Last Treating Co mments Source Name Details Category Date Date Treatment Clinician Date Diseases Diseases Problem 2017-032018-07-06 2018-07-06 Memoria of the of the 0-10 16:23:35 16:23:35 l nervous nervous 03:43: [place] system system 35 complicati complicati aron sharp , , third third trimester trimester 12/23/2017 07/06/2018 [facility] Peoples's Peoples's Problem 2017-032018-07-06 2018-07-06 Memoria palsy palsy 0-04 16:23:35 16:23:35 l 12/17/2017 05:00: Kavin blum 07/06/2018 00 [facility] 35 weeks 35 weeks Problem 2017-032018-07-06 2018-07-06 Memoria gestation gestation 0-04 16:23:35 16:23:35 l of of 05:00: [place] 00 12/17/2017 07/06/2018 [facility] Allergies, Adverse Reactions, Alerts Allergy Allergy Status Severity Reaction(s) Onset Inactive Treating Comm ents Source Name Type Date Date Clinician NO KNOWN Drug Active Univers ALLERGIE Class ity of S [facility] Social History Social Habit Start Date Stop Date Quantity Comments Source ASSERTION 2018-07-28 University 00:00:00 [facility] History of Cigarette Smoker Universi ty of tobacco use [facility] Exposure to 2021-12-27 2022-01-06 Not sure [facility] SARS-CoV-2 00:00:00 10:09:00 [facility] (event) [place] Tobacco use and 2022-01-06 2022-01-06 Smokeless tobacco Un iversity of exposure 00:00:00 00:00:00 non-user [facility] Alcohol intake 2022-01-06 2022-01-06 Ex-drinker [facility] 00:00:00 00:00:00 (finding) [facility] Tobacco Comment 2018-06-03 2018-06-03 smokes 3 Universit y of 00:00:00 00:00:00 cigarettes per [place] [facility] day. Branch Social History 2017-12-18 2017-12-18 [facility] Jorge guzman 01:18:03 01:18:03 Sex [birth year] [facility] 00:00[facility]00 Hospital Smoking Status Start Date Stop Date Source Tobacco smoking [facility] consumption unknown Ex-smoker 2022-01-06 00:00:00 2022-01-06 University o f [place] 00:00:00 [facility] Branch Smokes tobacco daily 2018-11-01 00:00:00 Univers ity of [facility] Medications Ordered Filled Start Stop Current Ordering Indication Dosage Frequency Signature Comments Components Source Medication Medication Date Date Medication? Clinician (SIG) Name Name ARIPIPRAZOL 2021-03 Yes Take by Uni vers E ORAL 0-24 mouth. ity of 10:45: [address] SERTraline 2021-03 Yes 100mg Take 100 Un maria m 100 mg 0-24 mg by ity of tablet 10:45: mouth in [place] 47 the Medical morning. Branch PNV 2021-03 Yes [id number] 1{capsu Take 1 Univ ers 102-iron-fo 0-24 le} capsule by it y of late-dha 00:00: mouth [place] (VITAFOL FE 00 daily. Medica l PLUS) 90 mg Branch iron- 1 mg-200 mg Cap metoclopram 2021-03 Yes [id number] 10mg Take 1 Univers yue HCl 10 0-24 tablet by ity of mg tablet 00:00: mouth [place] 00 every 6 Medical (six) Branch hours as needed for Nausea and Vomiting (N/V). aspirin 81 2021-03 Yes [id number] 81mg Take 1 Univers mg EC 0-24 tablet by ity of tablet 00:00: mouth in [place] 00 the Medical morning. Branch BUPROPION No HYDROCHLORI 8-15 DE ER (XL) 00:00: 150 MG TB24 00 BUPROPION No HYDROCHLORI 8-15 DE ER (XL) 00:00: 150 MG TB24 00 TAKE 1 No 150 TABLET BY 8-10 MOUTH EVERY 00:00: DAY 00 TAKE BY No 4 MOUTH 8-10 DIRECTED ON 00:00: PACKAGE 00 &lt 0 No 100 8-10 00:00: 00 TAKE 1 No 150 TABLET BY 8-10 MOUTH EVERY 00:00: DAY 00 TAKE BY 0 No 4 MOUTH 8-10 DIRECTED ON 00:00: PACKAGE 00 &lt 2021-0 No 100 8-10 00:00: 00 TAKE 1 No 2 TABLET BY 7-30 MOUTH 00:00: NIGHTLY 00 TAKE 1 0 No 2 TABLET BY 7-30 MOUTH 00:00: NIGHTLY 00 ARIPIPRAZOL Yes Take by Uni vers E ORAL 7-27 mouth. ity of 01:00: [place] [address] Medical Branch SERTraline Yes 100mg Take 100 Un maria m 100 mg 7-27 mg by ity of tablet 01:00: mouth in [place] 04 the Medical morning. Branch ARIPIPRAZOL Yes Take by Uni vers E ORAL 7-27 mouth. ity of 01:00: [place] 04 Medical Branch SERTraline Yes 100mg Take 100 Un maria m 100 mg 7-27 mg by ity of tablet 01:00: mouth in [place] 04 the Medical morning. Branch TAKE AND 0 No 100 1/2 TABLETS 7-27 BY MOUTH 00:00: EVERY DAY 00 &lt 2021-0 No 100 7-27 00:00: 00 TAKE 1 2021-0 No 150 TABLET BY 7-27 MOUTH EVERY 00:00: DAY 00 TAKE 1 AND 2021-0 No 100 1/2 TABLETS 7-27 BY MOUTH 00:00: EVERY DAY 00 &lt 2021-0 No 100 7-27 00:00: 00 TAKE 1 2021-0 No 150 TABLET BY 7-27 MOUTH EVERY 00:00: DAY 00 ARIPIPRAZOL 0 Yes Take by Uni vers E ORAL 7-25 mouth. ity of 15:32: [address] SERTraline Yes 100mg Take 100 Un maria m 100 mg 7-25 mg by ity of tablet 15:32: mouth in [place] [address] the Medical morning. Branch ARIPIPRAZOL Yes Take by Uni vers E ORAL 7-25 mouth. ity of 15:32: [address] SERTraline Yes 100mg Take 100 Un maria m 100 mg 7-25 mg by ity of tablet 15:32: mouth in [place] [address] the Medical morning. Branch thiamine Yes 100mg 100 mg, Unive rs (VITAMIN 7-25 Oral, ity of B1) tablet 14:00: DAILY, [place] 100 mg 00 First dose Medical (after [place] last modificati on) on Thu10/07/21 at 0900, Until Discontinu ed, Routine SERTraline Yes 100mg 100 mg, Uni vers (ZOLOFT) 7-25 Oral, ity of tablet 100 14:00: DAILY, [place] mg 00 First dose Medical (after Branch last modificati on) on Thu10/07/21 at 0900, Until Discontinu ed, Routine foLIC acid Yes 1mg 1 mg, Univer s (FOLATE) 7-25 Oral, ity of tablet 1 mg 14:00: DAILY, [place] 00 First dose Medical (after Branch last modificati on) on Thu10/07/21 at 0900, Until Discontinu ed, Routine ARIPiprazol Yes 2mg 2 mg, Unive rs e (ABILIFY) 10-07 Oral, ity of 1 mg/mL 14:00: DAILY, [place] oral 00 First dose Medical solution 2 (after Branch mg last modificati on) on 10/07/21 at 0900, Until Discontinu ed, Routine diphenhydrA 2021- No 25mg 25 mg, Uni vers MINE 10-07 Oral, ity of (BENADRYL) 05:16: 05:23 ONCE, 1 [place] as tablet 25 00 :00 dose, On Medica l mg Mon Branch 10/07/21 at 0030, Routine midazolam No 1mg 1 mg, IV Uni vers (VERSED) 10-06 Push, ity of injection 1 22:15: 01:43 ONCE, 1 [place] mg 00 :00 dose, On Medical [facility] 10/06/21 at 1715, Routine haloperidol No 5mg 5 mg, Univ ers lactate 10-05 Intramuscu ity o f (HALDOL) 15:30: 11:16 lar, [place] injection 5 00 :14 TIDPRN, Medic al mg Starting Branch on [facility] 10/05/21 at 1030, Until [place] 10/06/21 at 0616, Routine, Psychosis phenoL Yes 1{spray 1 [place], Univ ers (SORE 10-05 } Oral, PRN, ity of THROAT 15:24: Starting [place] (PHENOL)) 12 on [facility] Medical 1.4 % spray 10/05/21 at Br anch bottle 1 1024, [place] Until Discontinu ed, Routine, Sore throat haloperidol [...] :11 First dose Me dical mg on Thu10/04/21 at 1400, Until Discontinu ed, Routine buPROPion Yes 150mg 150 mg, Univ ers XL 10-04 Oral, ity of (WELLBUTRIN 14:00: DAILY, [place] XL) tablet 00 First dose Med ical 150 mg on Thu10/04/21 at 0900, Until Discontinu ed, Routine thiamine [...] 1 Medical 50 mcg dose, On Branch Thu10/04/21 at 0030, Routine etomidate 2021- No 20mg 20 mg, Unive rs (AMIDATE) 10-04 Slow IV ity of injection 04:52: 03:30 Push, [place] 20 mg 00 :00 ONCE, 1 Medical dose, On Branch Thu10/04/21 at 0000, STAT ipratropium 2021- No 3mL 3 mL, Univ ers -albuteroL 10-04 Inhalation it y of (DUONEB) 01:00: 13:39 , QID, [place] 0.5 mg-3 00 :25 First dose Medic [...] 1000mL at 125 Univ ers ringers IV 10-03 mL/hr, ity of infusion 18:00: 18:17 1,000 mL, [place] as 1,000 mL 00 :00 IV Medical Infusion, Branch ONCE, 1 dose, On Alex[place] 10/03/21 at 1300, Routine propofoL IV 2021- No 5ug/kg/ 5-50 Un maria m infusion 10-03 min mcg/kg/min ity of 14:38: 13:33 ?108.9 [...] 2021- No .2ug/kg 0.2-1.5 Univers dine 400 10-03-24 /h mcg/kg/hr ity o f mcg in [...] at 0900, Until Discontinu ed, Routine thiamine 2021- No 100mg 100 mg, Univ ers (VITAMIN [...] mcg/kg/min ity of 08:21: 14:38 ?108.9 kg [place] 44 :51 (3.267-32. Medical 67 mL/hr, Branch [...] should be discarded after 12 hours.
rocuronium 2021- No 100mg 100 mg, IV Univers (ZEMURON) 10-03 Push, ity of injection 06:45: 05:43 ONCE, 1 [place] 100 mg 00 :00 dose, On Medical [place] Branch 10/03/21 at 0145, Routine
tennis desk team member approving Restricted medication : LAURIE FIORE dexMEDEtomi 2021- No .2ug/kg 0.2-1.5 Univers dine 400 10-0321 /h mcg/kg/hr ity o f mcg in [...] [place] Branch 10/03/21 at 0100, Routine midazolam 2021- No 4mg 4 mg, IV Uni vers (VERSED) 10-03 Push, ity of injection 4 05:45: 05:44 ONCE, 1 [place] mg 00 :00 dose, On Medical [place] Branch 10/03/21 at 0045, STAT propofoL IV 2021- No 5ug/kg/ 5-50 Un maria m infusion 10-03 min mcg/kg/min ity of 04:43: 08:22 ?108.9 kg [place] 37 :46 (3.267-32. Medical 67 mL/hr, Branch rounded to 3.27-32.67 mL/hr), IV Infusion, TITRATE, Sedation-R ASS score (0 to -1), Starting on 10/02/21 at 2343
In itiate infusion at 5 [...] [place] mg 00 :00 1 dose, On Medical Wed Branch 10/02/21 at 2330, STAT
Is the medication being used for status epilepticu s? No rocuronium 2021- No 100mg 100 mg, IV Univers (ZEMURON) 10-03 Push, ity of injection 03:55: 03:55 ONCE, 1 [place] 100 mg 00 :00 dose, On Medical Wed Branch 10/02/21 at 2300, Routine
tennis desk team member approving Restricted medication : LAURIE FIORE diphenhydrA 2021- No 50mg 50 mg, Uni vers MINE 10-03 Intramuscu ity of (BENADRYL) 03:30: 03:30 lar, ONCE, [place] injection 00 :00 1 dose, On Medi [place] 50 mg Wed Branch 10/02/21 at 2230, STAT haloperidol 2021- No 5mg 5 mg, Univ ers lactate 10-03 Intramuscu ity o f (HALDOL) 03:30: 06:17 [place], ONCE, [place] injection 5 00 :00 1 dose, On Me dical mg Wed Branch 10/02/21 at 2230, STAT &lt 2021-0 No 100 10-03 00:00: 00 &lt 2021-0 No 4 10-03 00:00: 00 &lt 2021-0 No 100 10-03 00:00: 00 TAKE 1 AND 2021-0 No 100 1/2 TABLETS 10-03 BY MOUTH 00:00: EVERY DAY 00 TAKE 1 2021-0 No 150 TABLET BY 7- MOUTH EVERY 00:00: DAY 00 &lt 2021-0 No 100 10-03 00:00: 00 &lt 2022-0 No 4 10-03 00:00: 00 &lt 2022-0 No 100 10-03 00:00: 00 TAKE 1 AND 2021-0 No 100 1/2 TABLETS 21 BY MOUTH 00:00: EVERY DAY 00 TAKE 1 2021-0 No 150 TABLET BY 7-21 MOUTH EVERY 00:00: DAY 00 TAKE 1 2021-0 No 2 TABLET BY 7- MOUTH 00:00: NIGHTLY 00 &lt 2022-0 No 100 09-26 00:00: 00 TAKE BY 2021-0 No 4 MOUTH -14 DIRECTED ON 00:00: PACKAGE 00 TAKE 1 2021-0 No 2 TABLET -14 DAILY. 00:00: 00 TAKE 1 2021-0 No 2 TABLET BY 7-14 MOUTH 00:00: NIGHTLY 00 &lt 2022-0 No 100 7-14 00:00: 00 TAKE BY 2022-0 No 4 MOUTH 7-14 DIRECTED ON 00:00: PACKAGE 00 TAKE 1 2021-0 No 2 TABLET 7-14 DAILY. 00:00: 00 &lt 2022-0 No 6-22 00:00: 00 &lt 2022-0 No 6-22 00:00: 00 Wellbutrin 2-0 No 1mg XL 150 mg 6-16 24 hr 00:00: tablet, 00 extended release Zoloft 100 2022-0 No 1mg mg tablet 6-16 00:00: 00 Abilify 2 2022-0 No 1mg mg tablet 616 00:00: 00 TAKE 1 2021-0 No TABLET BY 6-16 MOUTH 3 00:00: TIMES A DAY 00 NEEDED FOR COUGH TAKE 1 2021-0 No TABLET BY 6-16 MOUTH 3 00:00: TIMES A DAY 00 NEEDED FOR COUGH TAKE 1 2021-0 No TABLET BY 6-16 MOUTH TWICE 00:00: A DAY FOR 2 00 WEEKS Wellbutrin 2-0 No 1mg XL 150 mg 6-16 24 hr 00:00: tablet, 00 extended release Zoloft 100 2-0 No 1mg mg tablet 616 00:00: 00 Abilify 2 2022-0 No 1mg mg tablet 616 00:00: 00 TAKE 1 2021-0 No TABLET BY 6-16 MOUTH 3 00:00: TIMES A DAY 00 NEEDED FOR COUGH TAKE 1 2021-0 No TABLET BY 6-16 MOUTH 3 00:00: TIMES A DAY 00 NEEDED FOR COUGH TAKE 1 2021-0 No TABLET BY 6-16 MOUTH TWICE 00:00: A DAY FOR 2 00 WEEKS TAKE BY 2021-0 No MOUTH 6-10 DIRECTED ON 00:00: PACKAGE 00 TAKE BY 202-0 No MOUTH 6-10 DIRECTED ON 00:00: PACKAGE 00 TAKE 1 2021-0 No TABLET BY 6-08 MOUTH EVERY 00:00: DAY 00 TAKE 1 2021-0 No TABLET BY 6-08 MOUTH EVERY 00:00: DAY 00 HYDROcodone 2-0 2- No 1{tbl} 1 tablet, Univers -acetaminop 4-11 04-11 Oral, ONCE i ty of hen (NORCO) [...] :00 dose, On Medi [place] 875-125 mg [facility] Branch per tablet 06/24/21 at 1 tablet 181, SONI
Re ason for Anti-Infec tive: Documented Infection< br>Documen sue Infection Site: HEENT
D uration of Therapy: 7 days amoxicillin 2021- No [id number] 1{tbl} Take 1 Univers -clavulanat 06-24 tablet [...] to 7 days. Indication s: acute pain Abilify 2 2021- No 1mg mg tablet 06-18 00:00: 00 Zoloft 100 2021-0 No 1mg mg tablet 06-18 00:00: 00 Wellbutrin 2021-0 No 1mg XL 150 mg 06-18 24 hr 00:00: tablet, 00 extended release Abilify 2 2021-0 No 1mg mg tablet 06-18 00:00: 00 Zoloft 100 2021-0 No 1mg mg tablet 06-18 00:00: 00 Wellbutrin 2022-0 No 1mg XL 150 mg 4-05 24 hr 00:00: tablet, 00 extended release Dose 2022-0 No Unknown 3-14 00:00: 00 Dose 2022-0 No Unknown 3-14 00:00: 00 Dose 2022-0 No Unknown 3-14 00:00: 00 Dose 2022-0 No Unknown 3-14 00:00: 00 Dose 2022-0 No Unknown 3-14 00:00: 00 Dose 2022-0 No Unknown 3-14 00:00: 00 Dose 2022-0 No Unknown 1-20 00:00: 00 Dose 2022-0 No Unknown 1-20 00:00: 00 Dose 2022-0 No Unknown 1-20 00:00: 00 Dose 2022-0 No Unknown 1-20 00:00: 00 Dose 2022-0 No Unknown 1-20 00:00: 00 Dose 2022-0 No Unknown 1-20 00:00: 00 Wellbutrin 2021-1 No 1mg XL 150 mg 0-21 24 hr 00:00: tablet, 00 extended release Zoloft 100 2021-1 No 1mg mg tablet 0-21 00:00: 00 Abilify 2 2021-1 No 1mg mg tablet 0-21 00:00: 00 Wellbutrin 2021-1 No 1mg XL 150 mg 0-21 24 hr 00:00: tablet, 00 extended release Zoloft 100 2021-1 No 1mg mg tablet 0-21 00:00: 00 Abilify 2 2021-1 No 1mg mg tablet 0-21 00:00: 00 Zoloft 100 2021-0 No 1mg mg tablet 9-24 00:00: 00 Wellbutrin 2021-0 No 1mg XL 150 mg 9-24 24 hr 00:00: tablet, 00 extended release Abilify 2 2021-0 No 1mg mg tablet 9-24 00:00: 00 Zoloft 100 2021-0 No 1mg mg tablet 9-24 00:00: 00 Wellbutrin 2021-0 No 1mg XL 150 mg 9-24 24 hr 00:00: tablet, 00 extended release Abilify 2 2021-0 No 1mg mg tablet 9-24 00:00: 00 Zoloft 100 2021-0 No 15mg mg tablet 8-09 00:00: 00 Abilify 2 2020-0 No 1mg mg tablet 10-22 00:00: 00 Zoloft 100 2020-0 No 15mg mg tablet 10-22 00:00: 00 Abilify 2 2020-0 No 1mg mg tablet 10-22 00:00: 00 predniSONE 2020-0 2020- No 40mg 40 mg, [facility] ers (DELTASONE) 09-12 Oral, ity of tablet 40 03:45: 02:57 ONCE, 1 [place] mg 00 :00 dose, Tue Medical 09/11/20 at Branch 2245, Routine ipratropium 2020- No 3mL 3 mL, [facility] ers -albuteroL 09-12 Inhalation it y of (DUONEB) 03:45: 03:00 , ONCE, 1 [place]ul[place]io as 0.5 mg-3 00 :00 dose, Tue Medica l mg(2.5 mg 09/11/20 at [facility])/3 mL 2245, nebulizer Routine solution 3 mL benzonatate Yes [id number] 100mg Take 1 Univers 100 mg 6-29 capsule by ity of capsule 00:00: mouth 3 00 (three) Medical times Branch daily as needed for Cough. albuterol 2020-0 Yes [id number] 2{puff} Inhale 2 Univers 90 6-29 Puffs ity of mcg/actuati 00:00: every 4 Eulogio as on inhaler 00 (four) Medical hours as Branch needed for Wheezing or Shortness of Breath. methylPREDN 2020-0 Yes [id number] Take by Univers ISolone 4 6-29 mouth ity of mg tablets 00:00: [place]-INSTRU [place] 00 CTIONS. Medical follow Branch package directions benzonatate 2020-0 Yes [id number] 100mg Take 1 Univers 100 mg 6-29 capsule by ity of capsule 00:00: mouth 3 00 (three) Medical times Branch daily as needed for Cough. albuterol 2020-0 Yes [id number] 2{puff} Inhale 2 Univers 90 6-29 Puffs ity of mcg/actuati 00:00: every 4 Eulogio as on inhaler 00 (four) Medical hours as Branch needed for Wheezing or Shortness of Breath. methylPREDN 2020-0 Yes [id number] Take by Univers ISolone 4 6-29 mouth ity of mg tablets 00:00: SEE-INSTRU [place] CTIONS. Medical follow Branch package directions benzonatate 2020-0 Yes [id number] 100mg Take 1 Univers 100 mg 6-29 capsule by ity of capsule 00:00: mouth 3 (three) Medical times Branch daily as needed for Cough. albuterol 2020-0 Yes [id number] 2{puff} Inhale 2 Univers 90 6-29 Puffs ity of mcg/actuati 00:00: every 4 Eulogio as on inhaler 00 (four) Medical hours as Branch needed for Wheezing or Shortness of Breath. methylPREDN 2020-0 Yes [id number] Take by Univers ISolone 4 6-29 mouth ity of mg tablets 00:00: SEE-INSTRU [place] CTIONS. Medical follow Branch package directions benzonatate 2020-0 Yes [id number] 100mg Take 1 Univers 100 mg 6-29 capsule by ity of capsule 00:00: mouth 3 (three) Medical times Branch daily as needed for Cough. albuterol 2020-0 Yes [id number] 2{puff} Inhale 2 Univers 90 6-29 Puffs ity of mcg/actuati 00:00: every 4 Eulogio as on inhaler 00 (four) Medical hours as Branch needed for Wheezing or Shortness of Breath. methylPREDN 2020-0 Yes [id number] Take by Univers ISolone 4 6-29 mouth ity of mg tablets 00:00: [place]-INSTRU [place] CTIONS. Medical follow Branch package directions benzonatate 2020-0 Yes [id number] 100mg Take 1 [facility] 100 mg 6-29 capsule by ity of capsule 00:00: mouth 3 (three) Medical times Branch daily as needed for Cough. albuterol 2020-0 Yes [id number] 2{puff} Inhale 2 [facility] 90 6-29 Puffs ity of mcg/actuati 00:00: every 4 [place] on inhaler 00 (four) Medical hours as Branch needed for Wheezing or Shortness of Breath. methylPREDN 2020-0 Yes [id number] Take by [facility] ISolone 4 6-29 mouth ity of mg tablets 00:00: SEE-INSTRU [place] 00 CTIONS. Medical follow Branch package directions benzonatate 2020-0 Yes [id number] 100mg Take 1 [facility] 100 mg 6-29 capsule by ity of capsule 00:00: mouth 3 (three) Medical times Branch daily as needed for Cough. albuterol 2020-0 Yes [id number] 2{puff} Inhale 2 [facility] 90 6-29 Puffs ity of mcg/actuati 00:00: every 4 [place] on inhaler 00 (four) Medical hours as Branch needed for Wheezing or Shortness of Breath. methylPREDN 2020-0 Yes [id number] Take by [facility] ISolone 4 6-29 mouth ity of mg tablets 00:00: SEE-INSTRU [place]. Medical follow Branch package directions benzonatate 0 Yes [id number] 100mg Take 1 [facility] 100 mg 6-29 capsule by ity of capsule 00:00: mouth 3 (three) Medical times Branch daily as needed for Cough. albuterol 2020-0 Yes [id number] 2{puff} Inhale 2 [facility] 90 6-29 Puffs ity of mcg/actuati 00:00: every 4 [place] on inhaler 00 (four) Medical hours as Branch needed for Wheezing or Shortness of Breath. methylPREDN 2020-0 Yes [id number] Take by [facility] ISolone 4 6-29 mouth ity of mg tablets 00:00: SEE-INSTRU [place] CT[place]. Medical follow Branch package directions benzonatate 2020-0 Yes [id number] 100mg Take 1 [facility] 100 mg 6-29 capsule by ity of capsule 00:00: mouth (three) Medical times Branch daily as needed for Cough. albuterol 2020-0 Yes [id number] 2{puff} Inhale 2 [facility] 90 6-29 Puffs ity of mcg/actuati 00:00: every 4 [place] on inhaler 00 (four) Medical hours as Branch needed for Wheezing or Shortness of Breath. methylPREDN 2020-0 2021- No [id number] Take by [facility] ISolone 4 6-29 10-24 mouth ity of mg tablets 00:00: 00:00 SEE-INSTRU [place] 00 :00 CTIONS. Medical follow Branch package directions Zoloft 100 0 No 1mg mg tablet 6- 00:00: 00 Abilify 2 2021-0 No 1mg mg tablet 6- 00:00: 00 Zoloft 100 2021-0 No 1mg mg tablet 6- 00:00: 00 Abilify 2 2021-0 No 1mg mg tablet 6- 00:00: 00 Zoloft 100 2021-0 No 1mg mg tablet 5- 00:00: 00 Abilify 2 2021-0 No 1mg mg tablet 5- 00:00: 00 Zoloft 100 2021-0 No 1mg mg tablet 5- 00:00: 00 Abilify 2 2021-0 No 1mg mg tablet 5-05 00:00: 00 Zoloft 100 2021-0 No 1mg mg tablet 4-13 00:00: 00 Abilify 2 2021-0 No 1mg mg tablet 4-13 00:00: 00 Zoloft 100 2021-0 No 1mg mg tablet 4-13 00:00: 00 Abilify 2 2021-0 No 1mg mg tablet 4-13 00:00: 00 Zoloft 100 2021-0 No 1mg mg tablet 3-24 00:00: 00 Abilify 2 2021-0 No 1mg mg tablet 3-24 00:00: 00 Zoloft 100 2021-0 No 1mg mg tablet 3-24 00:00: 00 Abilify 2 2021-0 No 1mg mg tablet 3-24 00:00: 00 Zoloft 100 2021-0 No 1mg mg tablet 2-12 00:00: 00 Zoloft 100 2021-0 No 1mg mg tablet 2-12 00:00: 00 risperidone 2021-0 No 1mg 1 mg tablet 1- 00:00: 00 risperidone 2021-0 No 1mg 1 mg tablet 1- 00:00: 00 risperidone 2021-0 No 1mg 1 mg tablet 1- 00:00: 00 risperidone 2021-0 No 1mg 1 mg tablet - 00:00: 00 risperidone 2020-1 No 1mg 1 mg tablet 2- 00:00: 00 Zoloft 100 2020-1 No 1mg mg tablet 2- 00:00: 00 risperidone 2020-1 No 1mg 1 mg tablet 2- 00:00: 00 Zoloft 100 2019-1 No 1mg mg tablet 2- 00:00: 00 predniSONE 2019-1 2020- No [id number] 50mg Take 5 [facility] 10 mg 0-20 10-26 tablets by ity of tablet 00:00: 04:59 mouth [place] 00 :00 daily for Medical 5 days. Branch predniSONE 2019- 2020- No [id number] 50mg Take 5 [facility] 10 mg 0-20 10-26 tablets by ity of tablet 00:00: 04:59 mouth [place] 00 :00 daily for Medical 5 days. Branch risperidone 2019-1 No 1mg 1 mg tablet 0-16 00:00: 00 Zoloft 50 2019-1 No 1mg mg tablet 0-16 00:00: 00 risperidone 2019-1 No 1mg 1 mg tablet 0-16 00:00: 00 Zoloft 50 2019-1 No 1mg mg tablet 0-16 00:00: 00 risperidone 2020-0 No 1mg 1 mg tablet 8 00:00: 00 Zoloft 50 2020-0 No 1mg mg tablet 8 00:00: 00 risperidone 2020-0 No 1mg 1 mg tablet 8 00:00: 00 Zoloft 50 2020-0 No 1mg mg tablet 8 00:00: 00 medroxyPROG 2020- No 150mg 150 mg, U nivers ESTERone 08-1105 Intramuscu ity of (DEPO-PROVE 16:00: 16:59 lar, [place] RA) 00 :00 [id number], Medical injection 3 doses, Branch 150 mg [...] medroxyPROG 2020- No 150mg Univ ers ESTERone 08-1105 ity of (DEPO-PROVE 16:00: 16:59 [place] RA) 00 :00 Medical injection Branch 150 mg medroxyPROG 2020-0 2020- No 150mg 150 mg, U nivers ESTERone 2-06 02-06 Intramuscu ity of (DEPO-PROVE 16:30: 15:51 lar, ONCE, [place] RA) 00 :00 1 dose, Medical injection Alexus 04/21/19 Bran ch 150 mg at 1030, Routine rho(D) 2020-0 Yes 300ug 300 mcg, Univer s immune 2-06 Intramuscu ity of globulin 02:34: lar, ONCE, [place] as (RHOGAM) 09 For 1 Medical syringe 300 dose, Branch mcg Conditiona l, Routine HYDROcodone 2020-0 Yes 1{tbl} 1 tablet, Univers -acetaminop 2-06 [...] 2-06 Oral, ity of (TYLENOL) 02:34: Q6HPRN, [place] tablet 650 05 Starting Medic al mg [...] IV Push, ity of (PF)) 02:34: Q8HPRN, [place] injection 4 05 Starting [facility]i [facility] mg Thu04/20/19 Branch at 2033, Until Discontinu ed, Routine, Nausea and Vomiting (N/V) simethicone 2020-0 Yes 160mg 160 mg, Un maria m (GAS RELIEF 2-06 Oral, ity of (SIMETHICON 02:34: PC+HSPRN, [place] E)) 05 Starting Medical chewable Thu04/20/19 Branc h tablet 160 at 2033, mg Until Discontinu ed, Routine, Gas docusate 2019-0 Yes 240mg 240 mg, Unive rs calcium 2-06 Oral, ity of (SURFAK) 02:34: QDAILYPRN, [place] [facility] capsule 240 05 Starting Medi [facility] mg Thu04/20/19 Branch at 2033, Until Discontinu ed, Routine, Constipati on magnesium 2019-0 Yes 30mL 30 mL, Univer s hydroxide [...] Discontinu ed, Routine, Perineum discomfort 2019-0 Yes [id number] 1{tbl} Take 1 [facility] vitamin 2-06 tablet by ity of w/FA tablet 00:00: mouth [place] 00 daily. Medical Branch docusate 2019-0 Yes [id number] 240mg Take 1 U nivers calcium 240 2-06 capsule by it y of mg capsule 00:00: mouth once [place] 00 daily as Medical needed for Branch Constipati on. ferrous 2020-0 Yes [id number] 325mg Take 1 [facility] sulfate 325 2-06 tablet by ity of mg (65 mg 00:00: mouth 2 [place] iron) 00 (two) Medical tablet times Branch daily. ibuprofen 2020-0 Yes [id number] 600mg Take 1 [facility] 600 mg 2-06 tablet by ity of tablet 00:00: mouth [place] 00 every 6 Medical (six) Branch hours as needed for Pain (scale 1-3) or Pain (scale 4-6) (Pain). Take with food or milk. 2020-0 Yes [id number] 1{tbl} Take 1 [facility] vitamin 2-06 tablet by ity of w/FA tablet 00:00: mouth [place] 00 daily. Medical Branch docusate 2020-0 Yes [id number] 240mg Take 1 U nivers calcium 240 2-06 capsule by it y of mg capsule 00:00: mouth once [place] 00 daily as Medical needed for Branch Constipati on. ferrous 2020-0 Yes [id number] 325mg Take 1 [facility] sulfate 325 2-06 tablet by ity of mg (65 mg 00:00: mouth 2 [place] iron) 00 (two) Medical tablet times Branch daily. ibuprofen 2020-0 Yes [id number] 600mg Take 1 [facility] 600 mg 2-06 tablet by ity of tablet 00:00: mouth [place] 00 every 6 Medical (six) Branch hours as needed for Pain (scale 1-3) or Pain (scale 4-6) (Pain). Take with food or milk. 2020-0 Yes [id number] 1{tbl} Take 1 [facility] vitamin 2-06 tablet by ity of w/FA tablet 00:00: mouth [place] 00 daily. Medical Branch docusate 2019-0 Yes [id number] 240mg Take 1 U nivers calcium 240 2-06 capsule by it y of mg capsule 00:00: mouth once [place] 00 daily as Medical needed for Branch Constipati on. ferrous 2020-0 Yes [id number] 325mg Take 1 [facility] sulfate 325 2-06 tablet by ity of mg (65 mg 00:00: mouth 2 [place] iron) 00 (two) Medical tablet times Branch daily. ibuprofen 2020-0 Yes [id number] 600mg Take 1 [facility] 600 mg 2-06 tablet by ity of tablet 00:00: mouth [place] 00 every 6 Medical (six) Branch hours as needed for Pain (scale 1-3) or Pain (scale 4-6) (Pain). Take with food or milk. 2020-0 Yes [id number] 1{tbl} Take 1 [facility] vitamin 2-06 tablet by ity of w/FA tablet 00:00: mouth [place] 00 daily. Medical Branch docusate 2020-0 Yes [id number] 240mg Take 1 U nivers calcium 240 2-06 capsule by it y of mg capsule 00:00: mouth once [place] 00 daily as Medical needed for Branch Constipati on. ferrous 2020-0 Yes [id number] 325mg Take 1 [facility] sulfate 325 2-06 tablet by ity of mg (65 mg 00:00: mouth 2 [place] iron) 00 (two) Medical tablet times Branch daily. ibuprofen 2020-0 Yes [id number] 600mg Take 1 [facility] 600 mg 2-06 tablet by ity of tablet 00:00: mouth [place] 00 every 6 Medical (six) Branch hours as needed for Pain (scale 1-3) or Pain (scale 4-6) (Pain). Take with food or milk. 2020-0 Yes [id number] 1{tbl} Take 1 [facility] vitamin 2-06 tablet by ity of w/FA tablet 00:00: mouth [place] 00 daily. Medical Branch docusate 2020-0 Yes [id number] 240mg Take 1 U nivers calcium 240 2-06 capsule by it y of mg capsule 00:00: mouth once [place] 00 daily as Medical needed for Branch Constipati on. ferrous 2020-0 Yes [id number] 325mg Take 1 [facility] sulfate 325 2-06 tablet by ity of mg (65 mg 00:00: mouth 2 [place] iron) 00 (two) Medical tablet times Branch daily. ibuprofen 2020-0 Yes [id number] 600mg Take 1 [facility] 600 mg 2-06 tablet by ity of tablet 00:00: mouth [place] 00 every 6 Medical (six) Branch hours as needed for Pain (scale 1-3) or Pain (scale 4-6) (Pain). Take with food or milk. 2020-0 Yes [id number] 1{tbl} Take 1 [facility] vitamin 2-06 tablet by ity of w/FA tablet 00:00: mouth [place] 00 daily. Medical Branch docusate 2020-0 Yes [id number] 240mg Take 1 U nivers calcium 240 2-06 capsule by it y of mg capsule 00:00: mouth once [place] 00 daily as Medical needed for Branch Constipati on. ferrous 2020-0 Yes [id number] 325mg Take 1 [facility] sulfate 325 2-06 tablet by ity of mg (65 mg 00:00: mouth 2 [place] iron) 00 (two) Medical tablet times Branch daily. ibuprofen 2020-0 Yes [id number] 600mg Take 1 [facility] 600 mg 2-06 tablet by ity of tablet 00:00: mouth [place] 00 every 6 Medical (six) Branch hours as needed for Pain (scale 1-3) or Pain (scale 4-6) (Pain). Take with food or milk. 2020-0 Yes [id number] 1{tbl} Take 1 [facility] vitamin 2-06 tablet by ity of w/FA tablet 00:00: mouth [place] 00 daily. Medical Branch docusate 2020-0 Yes [id number] 240mg Take 1 U nivers calcium 240 2-06 capsule by it y of mg capsule 00:00: mouth once [place] 00 daily as Medical needed for Branch Constipati on. ferrous 2020-0 Yes [id number] 325mg Take 1 [facility] sulfate 325 2-06 tablet by ity of mg (65 mg 00:00: mouth 2 [place] iron) 00 (two) Medical tablet times Branch daily. ibuprofen 2020-0 Yes [id number] 600mg Take 1 [facility] 600 mg 2-06 tablet by ity of tablet 00:00: mouth [place] 00 every 6 Medical (six) Branch hours as needed for Pain (scale 1-3) or Pain (scale 4-6) (Pain). Take with food or milk. 2019-0 Yes [id number] 1{tbl} Take 1 [facility] vitamin 2-06 tablet by ity of w/FA tablet 00:00: mouth [place] 00 daily. Medical Branch docusate 2020-0 Yes [id number] 240mg Take 1 U nivers calcium 240 2-06 capsule by it y of mg capsule 00:00: mouth once [place] 00 daily as Medical needed for Branch Constipati on. ferrous 2020-0 Yes [id number] 325mg Take 1 [facility] sulfate 325 2-06 tablet by ity of mg (65 mg 00:00: mouth 2 [place] iron) 00 (two) Medical tablet times Branch daily. ibuprofen 2020-0 Yes [id number] 600mg Take 1 [facility] 600 mg 2-06 tablet by ity of tablet 00:00: mouth [place] 00 every 6 Medical (six) Branch hours as needed for Pain (scale 1-3) or Pain (scale 4-6) (Pain). Take with food or milk. 2019-0 Yes [id number] 1{tbl} Take 1 [facility] vitamin 2-06 tablet by ity of w/FA tablet 00:00: mouth [place] 00 daily. Medical Branch docusate 2020-0 Yes [id number] 240mg Take 1 U nivers calcium 240 2-06 capsule by it y of mg capsule 00:00: mouth once [place] 00 daily as Medical needed for Branch Constipati on. ferrous 2020-0 Yes [id number] 325mg Take 1 [facility] sulfate 325 2-06 tablet by ity of mg (65 mg 00:00: mouth 2 [place] iron) 00 (two) Medical tablet times Branch daily. ibuprofen 2020-0 Yes [id number] 600mg Take 1 [facility] 600 mg 2-06 tablet by ity of tablet 00:00: mouth [place] 00 every 6 Medical (six) Branch hours as needed for Pain (scale 1-3) or Pain (scale 4-6) (Pain). Take with food or milk. 2019-0 Yes [id number] 1{tbl} Take 1 [facility] vitamin 2-06 tablet by ity of w/FA tablet 00:00: mouth [place] 00 daily. Medical Branch docusate 2020-0 Yes [id number] 240mg Take 1 U nivers calcium 240 2-06 capsule by it y of mg capsule 00:00: mouth once [place] 00 daily as Medical needed for Branch Constipati on. ferrous 2020-0 Yes [id number] 325mg Take 1 [facility] sulfate 325 2-06 tablet by ity of mg (65 mg 00:00: mouth 2 [place] iron) 00 (two) Medical tablet times Branch daily. ibuprofen 2020-0 Yes [id number] 600mg Take 1 [facility] 600 mg 2-06 tablet by ity of tablet 00:00: mouth [place] 00 every 6 Medical (six) Branch hours as needed for Pain (scale 1-3) or Pain (scale 4-6) (Pain). Take with food or milk. 2020-0 Yes [id number] 1{tbl} Take 1 [facility] vitamin 2-06 tablet by ity of w/FA tablet 00:00: mouth [place] 00 daily. Medical Branch docusate 2020-0 Yes [id number] 240mg Take 1 U nivers calcium 240 2-06 capsule by it y of mg capsule 00:00: mouth once [place] 00 daily as Medical needed for Branch Constipati on. ferrous 2020-0 Yes [id number] 325mg Take 1 [facility] sulfate 325 2-06 tablet by ity of mg (65 mg 00:00: mouth 2 [place] iron) 00 (two) Medical tablet times Branch daily. ibuprofen 2020-0 Yes [id number] 600mg Take 1 [facility] 600 mg 2-06 tablet by ity of tablet 00:00: mouth [place] 00 every 6 Medical (six) Branch hours as needed for Pain (scale 1-3) or Pain (scale 4-6) (Pain). Take with food or milk. 2020-0 Yes [id number] 1{tbl} Take 1 [facility] vitamin 2-06 tablet by ity of w/FA tablet 00:00: mouth [place] 00 daily. Medical Branch docusate 2020-0 Yes [id number] 240mg Take 1 U nivers calcium 240 2-06 capsule by it y of mg capsule 00:00: mouth once [place] 00 daily as Medical needed for Branch Constipati on. ferrous 2020-0 Yes [id number] 325mg Take 1 [facility] sulfate 325 2-06 tablet by ity of mg (65 mg 00:00: mouth 2 [place] iron) 00 (two) Medical tablet times Branch daily. ibuprofen 2020-0 Yes [id number] 600mg Take 1 [facility] 600 mg 2-06 tablet by ity of tablet 00:00: mouth [place] 00 every 6 Medical (six) Branch hours as needed for Pain (scale 1-3) or Pain (scale 4-6) (Pain). Take with food or milk. 2020-0 Yes [id number] 1{tbl} Take 1 [facility] vitamin 2-06 tablet by ity of w/FA tablet 00:00: mouth [place] 00 daily. Medical Branch docusate 2020-0 Yes [id number] 240mg Take 1 U nivers calcium 240 2-06 capsule by it y of mg capsule 00:00: mouth once [place] 00 daily as Medical needed for Branch Constipati on. ferrous 2020-0 Yes [id number] 325mg Take 1 Un [place] [facility] sulfate 325 2-06 tablet by ity of mg (65 mg 00:00: mouth 2 [place] iron) 00 (two) Medical tablet times Branch daily. ibuprofen 2020-0 Yes [id number] 600mg Take 1 [facility] 600 mg 2-06 tablet by ity of tablet 00:00: mouth [place] 00 every 6 Medical (six) Branch hours as needed for Pain (scale 1-3) or Pain (scale 4-6) (Pain). Take with food or milk. 2020-0 Yes [id number] 1{tbl} Take 1 [facility] vitamin 2-06 tablet by ity of w/FA tablet 00:00: mouth [place] 00 daily. Medical Branch docusate 2020-0 Yes [id number] 240mg Take 1 U nivers calcium 240 2-06 capsule by it y of mg capsule 00:00: mouth once [place] 00 daily as Medical needed for Branch Constipati on. ferrous 2020-0 Yes [id number] 325mg Take 1 [facility] sulfate 325 2-06 tablet by ity of mg (65 mg 00:00: mouth 2 [place] iron) 00 (two) Medical tablet times Branch daily. ibuprofen 2020-0 Yes [id number] 600mg Take 1 [facility] 600 mg 2-06 tablet by ity of tablet 00:00: mouth [place] 00 every 6 Medical (six) Branch hours as needed for Pain (scale 1-3) or Pain (scale 4-6) (Pain). Take with food or milk. 2020-0 Yes [id number] 1{tbl} Take 1 [facility] vitamin 2-06 tablet by ity of w/FA tablet 00:00: mouth [place] 00 daily. Medical Branch docusate 2020-0 Yes [id number] 240mg Take 1 U nivers calcium 240 2-06 capsule by it y of mg capsule 00:00: mouth once [place] 00 daily as Medical needed for Branch Constipati on. ferrous 2020-0 Yes [id number] 325mg Take 1 [facility] sulfate 325 2-06 tablet by ity of mg (65 mg 00:00: mouth 2 [place] iron) 00 (two) Medical tablet times Branch daily. ibuprofen 2020-0 Yes [id number] 600mg Take 1 [facility] 600 mg 2-06 tablet by ity of tablet 00:00: mouth [place] 00 every 6 Medical (six) Branch hours as needed for Pain (scale 1-3) or Pain (scale 4-6) (Pain). Take with food or milk. 2020-0 Yes [id number] 1{tbl} Take 1 [facility] vitamin 2-06 tablet by ity of w/FA tablet 00:00: mouth [place] 00 daily. Medical Branch docusate 2020-0 Yes [id number] 240mg Take 1 U nivers calcium 240 2-06 capsule by it y of mg capsule 00:00: mouth once [place] 00 daily as Medical needed for Branch Constipati on. ferrous 2020-0 Yes [id number] 325mg Take 1 [facility] sulfate 325 2-06 tablet by ity of mg (65 mg 00:00: mouth 2 [place] iron) 00 (two) Medical tablet times Branch daily. ibuprofen 2020-0 Yes [id number] 600mg Take 1 [facility] 600 mg 2-06 tablet by ity of tablet 00:00: mouth [place] 00 every 6 Medical (six) Branch hours as needed for Pain (scale 1-3) or Pain (scale 4-6) (Pain). Take with food or milk. 2020-0 Yes [id number] 1{tbl} Take 1 [facility] vitamin 2-06 tablet by ity of w/FA tablet 00:00: mouth [place] 00 daily. Medical Branch docusate 2020-0 Yes [id number] 240mg Take 1 U nivers calcium 240 2-06 capsule by it y of mg capsule 00:00: mouth once [place] 00 daily as Medical needed for Branch Constipati on. ferrous 2020-0 Yes [id number] 325mg Take 1 [facility] sulfate 325 2-06 tablet by ity of mg (65 mg 00:00: mouth 2 [place] iron) 00 (two) Medical tablet times Branch daily. ibuprofen 2020-0 Yes [id number] 600mg Take 1 [facility] 600 mg 2-06 tablet by ity of tablet 00:00: mouth [place] 00 every 6 Medical (six) Branch hours as needed for Pain (scale 1-3) or Pain (scale 4-6) (Pain). Take with food or milk. 2020-0 Yes [id number] 1{tbl} Take 1 [facility] vitamin 2-06 tablet by ity of w/FA tablet 00:00: mouth [place] 00 daily. Medical Branch docusate 2020-0 Yes [id number] 240mg Take 1 U nivers calcium 240 2-06 capsule by it y of mg capsule 00:00: mouth once [place] 00 daily as Medical needed for Branch Constipati on. ferrous 2020-0 Yes [id number] 325mg Take 1 [facility] sulfate 325 2-06 tablet by ity of mg (65 mg 00:00: mouth 2 [place] iron) 00 (two) Medical tablet times Branch daily. 2020-0 Yes [id number] 1{tbl} Take 1 [facility] vitamin 2-06 tablet by ity of w/FA tablet 00:00: mouth [place] 00 daily. Medical Branch docusate 2020-0 Yes [id number] 240mg Take 1 U nivers calcium 240 2-06 capsule by it y of mg capsule 00:00: mouth once [place] 00 daily as Medical needed for Branch Constipati on. ferrous 2020-0 Yes [id number] 325mg Take 1 [facility] sulfate 325 2-06 tablet by ity of mg (65 mg 00:00: mouth 2 [place] iron) 00 (two) Medical tablet times Branch daily. 2019-0 Yes [id number] 1{tbl} Take 1 [facility] vitamin 2-06 tablet by ity of w/FA tablet 00:00: mouth [place] 00 daily. Medical Branch docusate 2019-0 Yes [id number] 240mg Take 1 U nivers calcium 240 2-06 capsule by it y of mg capsule 00:00: mouth once [place] 00 daily as Medical needed for Branch Constipati on. ferrous 2020-0 Yes [id number] 325mg Take 1 [facility] sulfate 325 2-06 tablet by ity of mg (65 mg 00:00: mouth 2 [place] iron) 00 (two) Medical tablet times Branch daily. 2019- Yes [id number] 1{tbl} Take 1 [facility] vitamin 2-06 tablet by ity of w/FA tablet 00:00: mouth [place] 00 daily. Medical Branch docusate 2019-0 Yes [id number] 240mg Take 1 U nivers calcium 240 2-06 capsule by it y of mg capsule 00:00: mouth once [place] 00 daily as Medical needed for Branch Constipati on. ferrous 2020-0 Yes [id number] 325mg Take 1 [facility] sulfate 325 2-06 tablet by ity of mg (65 mg 00:00: mouth 2 [place] iron) 00 (two) Medical tablet times Branch daily. docusate 2020-0 Yes [id number] 240mg Take 1 U nivers calcium 240 2-06 capsule by it y of mg capsule 00:00: mouth once [place] 00 daily as Medical needed for Branch Constipati on. 2021- No [id number] 1{tbl} Take 1 [facility] vitamin 2-06 10-24 tablet by ity of w/FA tablet 00:00: 00:00 mouth [place] 00 :00 daily. Medical Branch ferrous 2021- No [id number] 325mg Take 1 U nivers sulfate 325 04-21-24 tablet by it y of mg (65 mg 00:00: 00:00 mouth 2 [place] iron) 00 :00 (two) Medical tablet times Branch daily. ibuprofen 2021- No [id number] 600mg Take 1 [facility] 600 mg 04-21 07-25 tablet by ity of tablet 00:00: 00:00 mouth [place] 00 :00 every 6 Medical (six) Branch hours as needed for Pain (scale 1-3) or Pain (scale 4-6) (Pain). Take with food or milk. D5W-LR IV 2019- No 1000mL at 125 Uni vers infusion 04-20-06 mL/hr, IV ity o f 1,000 mL 17:30: 02:34 Infusion, [place] [facility] 00 :10 CONTINUOUS Medical , Starting Branch Thu04/20/19 at 1130, Until Thu04/20/19 at 2033, Routine FENTanyl PF 2019- No 100ug 100 mcg, Univers (SUBLIMAZE 04-20 0206 Slow IV ity o f (PF)) 17:21: 02:34 Push, [place] injection 39 :10 Q1HPRN, Medical 100 mcg Starting Branch Thu04/20/19 at 1121, Until Thu04/20/19 at 2033, Routine, contractio n pain without an epidural and SVE < 8 cm and Cat I strip PNV 67-iron Yes [id number] 1{capsu Take 1 [facility] ps-folate 8-19 le} capsule by ity of no.1-dha 00:00: mouth [place] (VITAFOL 00 daily. Medical ULTRA) 29 Branch mg iron- 1 mg-200 mg Cap PNV 67-iron Yes [id number] 1{capsu Take 1 [facility] ps-folate 8-19 le} capsule by ity of no.1-dha 00:00: mouth [place] (VITAFOL 00 daily. Medical ULTRA) 29 Branch mg iron- 1 mg-200 mg Cap PNV 67-iron Yes [id number] 1{capsu Take 1 [facility] ps-folate 8-19 le} capsule by ity of no.1-dha 00:00: mouth [place] (VITAFOL 00 daily. Medical ULTRA) 29 Branch mg iron- 1 mg-200 mg Cap PNV 67-iron 2019-0 Yes [id number] 1{capsu Take 1 [facility] ps-folate 8-19 le} capsule by ity of no.1-dha 00:00: mouth [place] (VITAFOL 00 daily. Medical ULTRA) 29 Branch mg iron- 1 mg-200 mg Cap PNV 67-iron 2019-0 Yes [id number] 1{capsu Take 1 [facility] ps-folate 8-19 le} capsule by ity of no.1-dha 00:00: mouth [place] (VITAFOL 00 daily. Medical ULTRA) 29 Branch mg iron- 1 mg-200 mg Cap PNV 67-iron 2019-0 Yes [id number] 1{capsu Take 1 [facility] ps-folate 8-19 le} capsule by ity of no.1-dha 00:00: mouth [place] (VITAFOL 00 daily. Medical ULTRA) 29 Branch mg iron- 1 mg-200 mg Cap PNV 67-iron 2019-0 Yes [id number] 1{capsu Take 1 [facility] ps-folate 8-19 le} capsule by ity of no.1-dha 00:00: mouth [place] (VITAFOL 00 daily. Medical ULTRA) 29 Branch mg iron- 1 mg-200 mg Cap PNV 67-iron 2019-0 Yes [id number] 1{capsu Take 1 [facility] ps-folate 8-19 le} capsule by ity of no.1-dha 00:00: mouth [place] (VITAFOL 00 daily. Medical ULTRA) 29 Branch mg iron- 1 mg-200 mg Cap PNV 67-iron 2019-0 Yes [id number] 1{capsu Take 1 [facility] ps-folate 8-19 le} capsule by ity of no.1-dha 00:00: mouth [place] (VITAFOL 00 daily. Medical ULTRA) 29 Branch mg iron- 1 mg-200 mg Cap PNV 67-iron 2019-0 Yes [id number] 1{capsu Take 1 [facility] ps-folate 8-19 le} capsule by ity of no.1-dha 00:00: mouth [place] (VITAFOL 00 daily. Medical ULTRA) 29 Branch mg iron- 1 mg-200 mg Cap PNV 67-iron 2019-0 Yes [id number] 1{capsu Take 1 [facility] ps-folate 8-19 le} capsule by ity of no.1-dha 00:00: mouth [place] (VITAFOL 00 daily. Medical ULTRA) 29 Branch mg iron- 1 mg-200 mg Cap PNV 67-iron 2019-0 Yes [id number] 1{capsu Take 1 [facility] ps-folate 8-19 le} capsule by ity of no.1-dha 00:00: mouth [place] (VITAFOL 00 daily. Medical ULTRA) 29 Branch mg iron- 1 mg-200 mg Cap PNV 67-iron 2019-0 Yes [id number] 1{capsu Take 1 [facility] ps-folate 8-19 le} capsule by ity of no.1-dha 00:00: mouth [place] (VITAFOL 00 daily. Medical ULTRA) 29 Branch mg iron- 1 mg-200 mg Cap PNV 67-iron 2019-0 Yes [id number] 1{capsu Take 1 [facility] ps-folate 8-19 le} capsule by ity of no.1-dha 00:00: mouth [place] (VITAFOL 00 daily. Medical ULTRA) 29 Branch mg iron- 1 mg-200 mg Cap PNV 67-iron 2019-0 Yes [id number] 1{capsu Take 1 [facility] ps-folate 8-19 le} capsule by ity of no.1-dha 00:00: mouth [place] (VITAFOL 00 daily. Medical ULTRA) 29 Branch mg iron- 1 mg-200 mg Cap PNV 67-iron 2019-0 Yes [id number] 1{capsu Take 1 [facility] ps-folate 8-19 le} capsule by ity of no.1-dha 00:00: mouth [place] (VITAFOL 00 daily. Medical ULTRA) 29 Branch mg iron- 1 mg-200 mg Cap PNV 67-iron 2019-0 Yes [id number] 1{capsu Take 1 [facility] ps-folate 8-19 le} capsule by ity of no.1-dha 00:00: mouth [place] (VITAFOL 00 daily. Medical ULTRA) 29 Branch mg iron- 1 mg-200 mg Cap PNV 67-iron 2019-0 Yes [id number] 1{capsu Take 1 Univers ps-folate 8-19 le} capsule by ity of no.1-dha 00:00: mouth [place] (VITAFOL 00 daily. Medical ULTRA) 29 Branch mg iron- 1 mg-200 mg Cap PNV 67-iron 2019-0 Yes [id number] 1{capsu Take 1 Univers ps-folate 8-19 le} capsule by ity of no.1-dha 00:00: mouth [place] (VITAFOL 00 daily. Medical ULTRA) 29 Branch mg iron- 1 mg-200 mg Cap PNV 67-iron 2019-0 Yes [id number] 1{capsu Take 1 Univers ps-folate 8-19 le} capsule by ity of no.1-dha 00:00: mouth [place] (VITAFOL 00 daily. Medical ULTRA) 29 Branch mg iron- 1 mg-200 mg Cap PNV 67-iron 2019-0 Yes [id number] 1{capsu Take 1 Univers ps-folate 8-19 le} capsule by ity of no.1-dha 00:00: mouth [place] (VITAFOL 00 daily. Medical ULTRA) 29 Branch mg iron- 1 mg-200 mg Cap PNV 67-iron 2019-0 Yes [id number] 1{capsu Take 1 Univers ps-folate 8-19 le} capsule by ity of no.1-dha 00:00: mouth [place] (VITAFOL 00 daily. Medical ULTRA) 29 Branch mg iron- 1 mg-200 mg Cap PNV 67-iron 2019-0 Yes [id number] 1{capsu Take 1 Univers ps-folate 8-19 le} capsule by ity of no.1-dha 00:00: mouth [place] (VITAFOL 00 daily. Medical ULTRA) 29 Branch mg iron- 1 mg-200 mg Cap PNV 67-iron 2019-0 Yes [id number] 1{capsu Take 1 Univers ps-folate 8-19 le} capsule by ity of no.1-dha 00:00: mouth [place] (VITAFOL 00 daily. Medical ULTRA) 29 Branch mg iron- 1 mg-200 mg Cap PNV 67-iron 2019-0 Yes [id number] 1{capsu Take 1 Univers ps-folate 8-19 le} capsule by ity of no.1-dha 00:00: mouth [place] (VITAFOL 00 daily. Medical ULTRA) 29 Branch mg iron- 1 mg-200 mg Cap PNV 67-iron 2019-0 Yes [id number] 1{capsu Take 1 Univers ps-folate 8-19 le} capsule by ity of no.1-dha 00:00: mouth [place] (VITAFOL 00 daily. Medical ULTRA) 29 Branch mg iron- 1 mg-200 mg Cap PNV 67-iron 2019-0 2021- No [id number] 1{capsu Take 1 Univers ps-folate 8-19 10-24 le} capsule by ity of no.1-dha 00:00: 00:00 mouth [place] (VITAFOL 00 :00 daily. Medical ULTRA) 29 Branch mg iron- 1 mg-200 mg Cap norgestimat 2017-03 Yes [id number] 1{tbl} Take 1 Univers e-ethinyl 2-20 tablet by ity o f estradiol 00:00: mouth [place] (ORTHO 00 daily. [facility]-CYCL[facility], 28,) 0.18/0.215/ 0.25 mg-25 mcg tablet norgestimat 2017-03 2019- No [id number] 1{tbl} Take 1 Univers e-ethinyl 2-20 08-19 tablet by ity of estradiol 00:00: 00:00 mouth [place] (ORTHO 00 :00 daily. [facility] 0.18/0.215/ 0.25 mg-25 mcg tablet Prednisone 2017-03 No 50 mg = 1 Me moria 50 MG Oral 0-06 tab, PO, l Tablet 03:18: Daily, X 5 Emilia nn 00 day, # 5 tab, 0 Refill(s) Prednisone 2017-03 No 50 mg = 1 Me moria 50 MG Oral 0-06 tab, PO, l Tablet 03:18: Daily, X 5 Emilia nn 00 day, # 5 tab, 0 Refill(s) ocular 2017-03 Yes 1 drp, Memoria lubricant 0-05 OPTH, TID, l solution 03:18: PRN for Kavin n 00 dry eyes, # 30 ml, 0 Refill(s) ocular 2017-03 Yes 1 drp, Memoria lubricant 0-05 OPTH, TID, l solution 03:18: PRN for [place] 00 dry eyes, # 30 ml, 0 Refill(s) Prednisone 2017-03 No Notes: Memor ia 0-05 Take with l 03:16: food. Prednisone 2017-03 No Notes: Memor ia 0-05 Take with l 03:16: food. risperiDONE 2016-03 Yes 1 mg = 1 Me moria 1 mg oral 0-26 tab, PO, l tablet 14:25: BID, # 60 Kavin n 00 tab, 11 Refill(s) risperiDONE 2016-03 Yes 1 mg = 1 [...] 60 Kavin n 00 tab, 1 Refill(s) ibuprofen 2016-03 Yes 600 mg = 1 Me moria 600 mg oral 0-26 tab, PO, l tablet 14:22: Q6H, # 60 Kavin n 00 tab, 1 Refill(s) Risperdal 2016-03 No Notes: Memori a 0-25 (Same as: l 14:00: Risperdal) 2016-03 No 1 tab, Memoria Multivitami 0-25 Route: PO, l ns oral 14:00: Drug Form: Herm yomaira tablet 00 TAB, Dosing Weight 77.273, kg, Daily, Start date: 01/07/17 9:00:00 CDT, Duration: 30 day, Stop date: 02/05/17 9:00:00 [employer] Risperdal 2016-03 No Notes: Memori a 0-25 (Same as: l 14:00: Risperdal) 2016-03 No 1 tab, Memoria Multivitami 0-25 Route: PO, l ns oral 14:00: Drug Form: Herm yomaira tablet 00 TAB, Dosing Weight 77.273, kg, Daily, Start date: 01/07/17 9:00:00 CDT, Duration: 30 day, Stop date: 02/05/17 9:00:00 [employer] Ativan 2016-03 No Notes: Memoria 0-25 (Same as: l 05:20: Ativan) Ativan 2016-03 No Notes: Memoria 0-25 (Same as: l 05:20: Ativan) [place] 00 ibuprofen 2016-03 No Notes: Memori a 0-24 (Same as: l 23:00: Motrin) [place] "Do Not Crush" Take with food[facility] 2016-03 No Notes: Memoria 0-24 (Same as: l 23:00: [facility]) [place] (measles-m umps-rubel la virus vaccine 0.5 ml INJ VL) WASTE: F/P - Red; E -Red GIVE PRIOR TO DISCHARGE tetanus/dip 2016-03 No Notes: Dewayne beverly hth/pertuss 0-24 (Tdap ) l is (Tdap) 23:00: For [place] adult/adol 00 Adolecent 5 units-2 and Adult units-15.5 use For IM mcg/0.5 mL Use. Same intramuscul as: Adacel ar (Tdap) suspension ibuprofen 2016-03 No Notes: Memori a 0-24 (Same as: l 23:00: Motrin) [place] "Do Not Crush" Take with food. [facility] 2016-03 No Notes: Memoria 0-24 (Same as: l 23:00: [facility]) [place] (measles-m umps-rubel la virus vaccine 0.5 ml [...] Rate: 100 l 1,000 mL 22:15: ml/hr, [place] Infuse over: 10 hr, Route: IV, Dosing Weight 77.273 kg, Total Volume: 1,000, Start date: 01/06/17 17:15:00 CDT, Duration: 30 day, Stop date: 02/05/17 17:14:00 [employer] oxytocin 30 2016-03 No 30 unit, Me moria units/NS 0-24 500 mL, l 500 ml 30 22:15: Rate: 42 Herm ymoaira unit 00 ml/hr, Infuse over: 11.9 hr, [...] beverly ovine 0-24 (Same l 22:15: as:Metherg [place] 00 ine) ondansetron 2016-03 No Notes: Dewayne beverly 0-24 (Same as: l 22:15: Zofran) [place] 00 MEDICATION WASTE Product Size: 4 mg Product Wasted: ___ mg docusate 2016-03 No Notes: Memoria 0-24 (Same as: l 22:15: Colace) [place] 00 (Do Not Crush) lanolin 2016-03 No Notes: Memoria topical 0-24 (Same l 22:15: as:Lanolin [place] 00 ) bisacodyl 2016-03 No Notes: Memori [...] Duration: 30 day, Stop date: 02/05/17 17:14:00 [employer] oxytocin 30 2016-03 No 30 unit, Me moria units/NS 0-24 500 mL, l 500 ml 30 22:15: Rate: 42 Herm yomaira unit 00 ml/hr, Infuse over: 11.9 hr, [...] Memoria 0-24 (Same As: l 22:15: Ambien) [place] 00 methylergon 2016-03 No Notes: Dewayne beverly ovine 0-24 (Same l 22:15: as:Metherg [place] ine) ondansetron 2016-03 No Notes: Dewayne beverly 0-24 (Same as: l 22:15: Zofran) [place] 00 MEDICATION WASTE Product Size: 4 mg Product Wasted: ___ mg docusate 2016-03 No Notes: Memoria 0-24 (Same as: l 22:15: Colace) [place] 00 (Do Not Crush) lanolin 2016-03 No Notes: Memoria topical 0-24 (Same l 22:15: as:Lanolin [place] 00 ) bisacodyl 2016-03 No Notes: Memori a 0-24 (Same As: l 22:15: Dulcolax, [place] 00 Correctol) (Do Not Crush) "Do Not Crush" Benadryl 2016-03 No Notes: Memoria 0-24 (Same as: l 17:49: Benadryl) [place] 00 Benadryl 2016-03 No Notes: Memoria 0-24 (Same as: l 17:49: Benadryl) [place] 00 Benadryl 2016-03 No Notes: Memoria 0-24 (Same as: l 17:25: Benadryl) [place] 00 Benadryl 2016-03 No Notes: Memoria 0-24 (Same as: l 17:25: Benadryl) famotidine 2016-03 No Notes: Memor ia 0-24 (Same as: l 15:00: Pepcid) [place] 00 Can be dilute in 5-10cc NS IVP: Slow IV push over at least 2 minutes. methylergon 2016-03 No Notes: Dewayne beverly ovine 0-24 (Same l 15:00: as:Metherg [place] 00 ine) misoprostol 2016-03 No Notes: Dewayne beverly 0-24 (Same l 15:00: as:Cytotec [place] 00 ) Take with food carboprost 2016-03 No Notes: Memor ia 0-24 (Same As: l 15:00: Hemabate) [place] citric 2016-03 No Notes: Memoria acid-sodium 0-24 (Same As: l citrate 15:00: Bicitra, [place] n 00 Cytra-2) Sodium citrate-ci tric acid (500-334 mg/5 mL): 1 mL contains sodium 1 mEq/mL and bicarbonat e 1 mEq/mL famotidine 2016-03 No Notes: Memor ia 0-24 (Same as: l 15:00: Pepcid) [place] 00 Can be dilute in 5-10cc NS IVP: Slow IV push over at least 2 minutes. methylergon 2016-03 No Notes: Dewayne beverly ovine 0-24 (Same l 15:00: as:Metherg [place] 00 ine) misoprostol 2016-03 No Notes: Dewayne beverly 0-24 (Same l 15:00: as:Cytotec [place] 00 ) Take with food carboprost 2016-03 No [...] 0-24 (Same as: l one 325 14:34: [place] Helder mg-5 mg 00 325/5) Do oral tablet not exceed 4gm/day of acetaminop hen. ondansetron 2016-03 No Notes: Dewayne beverly 0-24 (Same as: l 14:34: Zofran) [place] MEDICATION WASTE Product Size: 4 mg Product Wasted: ___ mg lidocaine 2016-03 No Notes: Memori a 1% 0-24 (Same as: l 14:34: Xylocaine) [place] 00 terbutaline 2016-03 No Notes: Dewayne beverly 0-24 DO NOT l 14:34: USE IN [place] 00 CONCRETE TESTER AREA (Same As: [place]) butorphanol 2016-03 No Notes: Dewayne beverly 0-24 (Same As: l 14:34: Stadol) [place] 00 MEDICATION WASTE Product Size: 2 mg Product [...] 500 ml 30 14:34: Rate: 42 Herm yomaira unit 00 ml/hr, Infuse over: 11.9 hr, [...] Duration: 30 day, Stop date: 02/05/17 9:33:00 [employer] acetaminoph 2016-03 No Notes: Dewayne beverly en-hydrocod 0-24 (Same as: l one 325 14:34: [place] mg-5 mg 00 325/5) Do oral tablet not exceed 4gm/day of acetaminop hen. ondansetron 2016-03 No Notes: Dewayne beverly 0-24 (Same as: l 14:34: Zofran) [place] 00 MEDICATION WASTE Product Size: 4 mg Product Wasted: ___ mg lidocaine 2016-03 No Notes: Memori a 1% 0-24 (Same as: l 14:34: Xylocaine) [place] 00 terbutaline 2016-03 No Notes: Dewayne beverly 0-24 DO NOT l 14:34: USE IN [place] 00 [employer]CRETE TESTER AREA (Same As: [place]) butorphanol 2016-03 No Notes: Dewayne beverly 0-24 (Same As: l 14:34: Stadol) [place] 00 MEDICATION WASTE Product Size: 2 mg Product Wasted: ___ mg ibuprofen 2016-03 No Notes: Memori a 0-24 (Same as: l 14:34: Motrin) [place] 00 "Do Not Crush" Take with food. lidocaine 2016-03 No Notes: Memori a 1% 0-24 (Same as: l injectable 14:34: Xylocaine) H ermann solution 00 oxytocin 30 2016-03 No 30 unit, Me moria units/NS 0-24 500 mL, l 500 ml 30 14:34: Rate: 42 Herm yomaira unit 00 ml/hr, Infuse over: 11.9 hr, [...] for regional anesthesia per unit protocol Lactated 2017- No 1,000 mL, Dewayne beverly [place] 0-24 Rate: 125 l 1,000 mL 14:34: ml/hr, [place] 00 Infuse over: 8 hr, Route: IV, Dosing Weight 77.273 kg, Total Volume: 1,000, Start date: 01/06/17 9:34:00 CDT, Duration: 30 day, Stop date: 02/05/17 9:33:00 [employer] Immunizations Ordered Filled Immunization Date Status Comments [facility] e Immunization Name Name Td 2017-12-08 Completed [facility] of 00:00:00 [facility] Tdap 2017-12-08 Completed University of 00:00:00 [facility] Tdap 2017-12-08 Completed University of 00:00:00 [facility] Tdap 2017-12-08 Completed [facility] of 00:00:00 [facility] Tdap 2017-12-08 Completed [facility] of 00:00:00 [facility] Tdap 2017-12-08 Completed [facility] of 00:00:00 [facility] Tdap 2017-12-08 Completed University of 00:00:00 [facility] Tdap 2017-12-08 Completed University of 00:00:00 [facility] Tdap 2017-12-08 Completed University of 00:00:00 [facility] Tdap 2017-12-08 Completed [facility] of 00:00:00 [facility] Tdap 2017-12-08 Completed [facility] of 00:00:00 [facility] TDAP 2017-12-08 Completed [facility] of 00:00:00 [facility] TDAP 2017-12-08 Completed [facility] of 00:00:00 [facility] TDAP 2017-12-08 Completed [facility] of 00:00:00 [facility] TDAP 2017-12-08 Completed University of 00:00:00 [facility] TDAP 2017-12-08 Completed University of 00:00:00 [facility] TDAP 2017-12-08 Completed University of 00:00:00 [facility] TDAP 2017-12-08 Completed [facility] of 00:00:00 [facility] TDAP 2017-12-08 Completed [facility] of 00:00:00 [place] [...] Branch HPV 2010-07-30 Completed University of 00:00:00 [facility] Tdap 2008-03-16 Completed University of 00:00:00 [facility] Tdap 2008-03-16 Completed University of 00:00:00 [facility] Tdap 2008-03-16 Completed University of 00:00:00 [facility] Tdap 2008-03-16 Completed University of 00:00:00 [facility] Tdap 2008-03-16 Completed University of 00:00:00 [facility] Tdap 2008-03-16 Completed University of 00:00:00 [facility] Tdap 2008-03-16 Completed University of 00:00:00 [facility] Tdap 2008-03-16 Completed University of 00:00:00 [facility] Tdap 2008-03-16 Completed University of 00:00:00 [facility] Tdap 2008-03-16 Completed University of 00:00:00 [facility] Tdap 2008-03-16 Completed University of 00:00:00 [facility] TDAP 2008-03-16 Completed University of 00:00:00 [facility] TDAP 2008-03-16 Completed University of 00:00:00 [facility] TDAP 2008-03-16 Completed University of 00:00:00 [facility] TDAP 2008-03-16 Completed University of 00:00:00 [facility] TDAP 2008-03-16 Completed University of 00:00:00 [facility] TDAP 2008-03-16 Completed [facility] of 00:00:00 [facility] TDAP 2008-03-16 Completed University of 00:00:00 [facility] TDAP 2008-03-16 Completed University of 00:00:00 [facility] TDAP 2008-03-16 Completed University of 00:00:00 [facility] Tdap 2008-03-16 Completed University of 00:00:00 [facility] TDAP 2008-03-16 Completed University of 00:00:00 [facility] TDAP 2008-03-16 Completed University of 00:00:00 [facility] TDAP 2008-03-16 Completed University of 00:00:00 [facility] TDAP 2008-03-16 Completed University of 00:00:00 [facility] TDAP 2008-03-16 Completed University of 00:00:00 [facility] Tdap 2008-03-16 Completed University of 00:00:00 [facility] Tdap 2008-03-16 Completed University of 00:00:00 [facility] Vital Signs Vital Name Observation Time Observation Value Comments Source Systolic blood 2022-01-06 15:42:00 129 mm[Hg] Univer sity of pressure [facility] Diastolic blood 2022-01-06 15:42:00 81 mm[Hg] Unive rsity of pressure [facility] Heart rate 2022-01-06 15:42:00 77 /min [facility]i ty of [facility] Body temperature 2022-01-06 15:42:00 36.89 [place] Univ ersity of [facility] Respiratory rate 2022-01-06 15:42:00 18 /min Univ ersity of [place] [facility] Body height 2022-01-06 15:42:00 172.7 cm [facility] [place] [facility] Body weight 2022-01-06 15:42:00 113.853 kg [facility] [place] [facility] BMI 2022-01-06 15:42:00 38.16 kg/m2 [facility] [place] [facility] Systolic blood 2021-10-07 12:43:00 138 mm[Hg] Univer sity of pressure [facility] Diastolic blood 2021-10-07 12:43:00 80 mm[Hg] Unive rsity of pressure [facility] Heart rate 2021-10-07 12:43:00 65 /min [facility] [place] [facility] Body temperature 2021-10-07 12:43:00 36.78 [place] [facility] ers[facility] of [place] [facility] Respiratory rate 2021-10-07 12:43:00 18 /min Univ ersity of [facility] Oxygen saturation in 2021-10-07 12:43:00 98 /min [facility] Arterial blood by [facility] Pulse oximetry Branch Body weight 2021-10-06 13:00:00 118 kg [facility] [place] [facility] BMI 2021-10-06 13:00:00 47.58 kg/m2 [facility] [place] [facility] Body height 2021-10-03 03:30:00 157.5 cm [facility] [place] [facility] Systolic blood 2021-07-23 02:28:00 163 mm[Hg] Univer sity of pressure [facility] Diastolic blood 2021-07-23 02:28:00 82 mm[Hg] Unive rsity of pressure [facility] Heart rate 2021-07-23 02:28:00 100 /min [facility] [place] [facility] Body temperature 2021-07-23 02:28:00 37.44 [place] [facility] [place] [facility] Respiratory rate 2021-07-23 02:28:00 16 /min Univ ersity of [facility] Body height 2021-07-23 02:28:00 172.7 cm [facility] [place] [facility] Body weight 2021-07-23 02:28:00 108.863 kg [facility] BMI 2021-07-23 02:28:00 36.49 kg/m2 [facility] Oxygen saturation in 2021-07-23 02:28:00 98 /min [facility] [place] [facility] Systolic blood 2021-06-24 22:27:42 134 mm[Hg] Univer sity of pressure [facility] Diastolic blood 2021-06-24 22:27:42 78 mm[Hg] Unive rsity of pressure [facility] Heart rate 2021-06-24 22:27:42 67 /min [facility] [place] [facility] Respiratory rate 2021-06-24 22:27:42 18 /min Univ ersity of [facility] Oxygen saturation in 2021-06-24 22:27:42 97 /min University of Arterial blood by [facility] Pulse oximetry Branch Body temperature 2021-06-24 21:13:00 37.56 [place] [facility] ers[facility] of [facility] Body height 2021-06-24 21:13:00 172.7 cm [facility] [place] [facility] Body weight 2021-06-24 21:13:00 108.863 kg [facility] [place] [facility] BMI 2021-06-24 21:13:00 36.49 kg/m2 [facility] Heart rate 2020-09-12 03:00:00 68 /min [facility] Respiratory rate 2020-09-12 03:00:00 18 /min Univ ersity of [place] [facility] Oxygen saturation in 2020-09-12 03:00:00 97 /min University of Arterial blood by [facility] Pulse oximetry Branch Systolic blood 2020-09-12 [...] 97 /min University of Arterial blood by [employer] [facility] Pulse oximetry Branch Systolic blood 2020-06-12 [...] 97 /min University of Arterial blood by [employer] [facility] Pulse oximetry Branch Systolic blood 2020-01-03 [...] 2020-01-03 15:11:00 86.183 kg [facility] [place] [facility] BMI 2020-01-03 15:11:00 28.89 kg/m2 [facility] [place] [facility] Oxygen saturation in 2020-01-03 15:11:00 98 /min University of Arterial blood by [place] [facility] Pulse oximetry Branch Systolic blood 2020-01-03 [...] 2020-01-03 15:11:00 86.183 kg [facility] [place] [facility] BMI 2020-01-03 15:11:00 28.89 kg/m2 [facility] Oxygen saturation in 2020-01-03 15:11:00 98 /min University of Arterial blood by [place] [facility] Pulse oximetry Branch Systolic blood 2019-08-12 15:40:00 [...] 2019-07-26 19:33:00 71 /min [facility] [place] [facility] Body temperature 2019-07-26 19:33:00 36.78 [place] Univ ersity of [facility] Respiratory rate 2019-07-26 19:33:00 16 /min Univ ersity of [facility] Body height 2019-07-26 19:33:00 172.7 cm Universi ty of [facility] Body weight 2019-07-26 19:33:00 87.573 kg Universi ty of [facility] BMI 2019-07-26 19:33:00 29.36 kg/m2 [facility]i ty of [facility] Systolic blood 2019-04-21 21:30:00 126 mm[Hg] Univer sity of pressure [facility] Diastolic blood 2019-04-21 21:30:00 64 mm[Hg] Unive rsity of pressure [facility] Heart rate 2019-04-21 21:30:00 62 /min Universi ty of [facility] Body temperature 2019-04-21 21:30:00 36.5 [place] Univ ersity of [facility] Respiratory rate 2019-04-21 21:30:00 18 /min Univ ersity of [facility] Oxygen saturation in 2019-04-21 21:30:00 99 /min University of Arterial blood by [facility] Pulse oximetry Branch Body height 2019-04-20 16:47:00 172.7 cm Universi ty of [facility] Body weight 2019-04-20 16:47:00 85.276 kg Universi ty of [facility] BMI 2019-04-20 16:47:00 28.59 kg/m2 Universi ty of [facility] Systolic blood 2018-11-01 19:43:00 113 mm[Hg] Univer sity of pressure [facility] Diastolic blood 2018-11-01 19:43:00 67 mm[Hg] Unive rsity of pressure [facility] Heart rate 2018-11-01 19:43:00 87 /min Universi ty of [facility] Body temperature 2018-11-01 19:43:00 37.11 [place] Univ ersity of [facility] Respiratory rate 2018-11-01 19:43:00 16 /min Univ ersity of [facility] Body height 2018-11-01 19:43:00 172.7 cm Universi ty of [facility] Body weight 2018-11-01 19:43:00 77.111 kg Universi ty of [facility] BMI 2018-11-01 19:43:00 25.85 kg/m2 [facility] BP Systolic 2021-11-28 11:16:00 145 mm[Hg] BP Diastolic 2021-11-28 11:16:00 82 mm[Hg] Weight Measured 2021-11-28 11:16:00 254.40 pounds Height Measured 2021-11-28 11:16:00 68.00 inches Body Temperature 2021-11-28 11:16:00 98.00 degrees Heart Rate 2021-11-28 11:16:00 55.00 /min Respiratory Rate 2021-11-28 11:16:00 18.00 /min BP Systolic 2021-11-21 09:25:00 139 mm[Hg] BP Diastolic 2021-11-21 09:25:00 87 mm[Hg] Weight Measured 2021-11-21 09:25:00 250.60 pounds Height Measured 2021-11-21 09:25:00 68.00 inches Body Temperature 2021-11-21 09:25:00 98.00 degrees Heart Rate 2021-11-21 09:25:00 100.00 /min Respiratory Rate 2021-11-21 09:25:00 18.00 /min BP Systolic 2021-07-23 15:47:00 114 mm[Hg] BP Diastolic 2021-07-23 15:47:00 55 mm[Hg] Weight Measured 2021-07-23 15:47:00 247.00 pounds Height Measured 2021-07-23 15:47:00 68.00 inches Body Temperature 2021-07-23 15:47:00 98.70 degrees Heart Rate 2021-07-23 15:47:00 87.00 /min Respiratory Rate 2021-07-23 15:47:00 21.00 /min Temperature Oral (F) 2017-12-18 03:40:00 98.8 F [facility] [place] Respitory Rate 2017-12-18 03:40:00 Mem[facility] [place] Systolic (mm Hg) 2017-12-18 03:40:00 Dewayne beverlyl [place] Diastolic (mm Hg) 2017-12-18 03:40:00 Mem orial [place] Temperature Oral (F) 2017-12-18 02:07:00 98.7 F [facility] [place] Systolic (mm Hg) 2017-12-18 02:07:00 Dewayne rial [place] Diastolic (mm Hg) 2017-12-18 02:07:00 Mem orial [place] Systolic (mm Hg) 2017-12-18 01:36:00 Dewayne rial [place] Diastolic (mm Hg) 2017-12-18 01:36:00 Mem orial [place] Weight 2017-12-18 01:01:00 [facility] [place] BMI Calculated 2017-12-18 01:01:00 Memori al [place] Heart Rate 2017-12-18 01:01:00 [facility] [place] Height 2017-12-18 01:01:00 172.72 cm [facility] [place] Temperature Oral (F) 2017-12-18 01:01:00 98.9 F [facility] [place] Respitory Rate 2017-12-18 01:01:00 Memori al [place] BP Systolic 2017-11-06 10:18:00 112 mm[Hg] BP Diastolic 2017-11-06 10:18:00 76 mm[Hg] Weight Measured 2017-11-06 10:18:00 180.00 pounds Height Measured 2017-11-06 10:18:00 68.00 inches Body Temperature 2017-11-06 10:18:00 98.70 degrees Heart Rate 2017-11-06 10:18:00 71.00 /min Respiratory Rate 2017-11-06 10:18:00 18.00 /min Temperature Oral (F) 2017-01-08 13:00:00 98.0 F [facility] [place] Systolic (mm Hg) 2017-01-08 13:00:00 Dewayne rial [place] Diastolic (mm Hg) 2017-01-08 13:00:00 Mem orial [place] Respitory Rate 2017-01-08 13:00:00 Memori al [place] Heart Rate 2017-01-08 13:00:00 [facility] [place] Systolic (mm Hg) 2017-01-08 01:20:00 Dewayne rial [place] Diastolic (mm Hg) 2017-01-08 01:20:00 Mem orial [place] Temperature Oral (F) 2017-01-08 01:20:00 98.2 F [facility] [place] Heart Rate 2017-01-08 01:20:00 [facility] [place] Respitory Rate 2017-01-07 21:08:00 Memori al [place] Temperature Oral (F) 2017-01-07 21:08:00 98.6 F [facility] [place] Heart Rate 2017-01-07 21:08:00 Shashi Pendleton Systolic (mm Hg) 2017-01-07 21:08:00 Dewayne Pendleton Diastolic (mm Hg) 2017-01-07 21:08:00 Ayah Pendleton Respitory Rate 2017-01-07 17:00:00 Jose Sheppard BMI Calculated 2017-01-06 14:20:00 Jose Sheppard Weight 2017-01-06 14:20:00 Shashi Pendleton Height 2017-01-06 14:20:00 172.72 cm [facility] Procedure Date / Time Performing Clinician Source Performed ASSIGNMENT OF BENEFITS 2022-01-06 15:10:25 Doctor Unassigned, [facility] Name [facility] POCT TEST 2022-01-06 00:00:00 [facility] POCT URINALYSIS W/O 2022-01-06 00:00:00 [facility] SPECIFIC GRAVITY [facility] AUTHORIZATION FOR RELEASE 2021-10-28 05:01:00 Doctor Unassigned, [facility] [place] [facility] HB ECG ROUTINE & RHYTHM 2021-10-07 09:59:21 Lori Montaño [facility] CREATINE KINASE 2021-10-07 09:50:00 Andrew Laws [facility] MAGNESIUM 2021-10-07 09:50:00 [facility] F[facility] SERUM 2021-10-07 09:50:00 [facility] THYROID STIMULATING 2021-10-07 09:50:00 Lori Montaño [facility] HORMONE [facility] BASIC METABOLIC PANEL 2021-10-07 09:50:00 Lori Montaño [facility] (NA, K, CL, CO2, GLUCOSE, Medica l Branch BUN, CREATININE, CA) IRON PANEL 2021-10-07 09:50:00 [facility] CBC WITHOUT DIFF 2021-10-07 09:50:00 [facility] LIPID PANEL ([id number])(TOTAL 2021-10-05 12:36:00 JohnathanGabe [facility] CHOLESTEROL, Medical Branch TRIGLYCERIDES, HDL) MAGNESIUM 2021-10-04 08:47:00 [facility] BASIC METABOLIC PANEL 2021-10-04 08:47:00 [facility] (NA, K, CL, CO2, GLUCOSE, [facility] BUN, CREATININE, CA) HB ECG ROUTINE & RHYTHM 2021-10-03 15:17:11 Mina Neves [facility] XR KUB 2021-10-03 13:00:00 Christo [facility] PHOSPHORUS 2021-10-03 11:49:00 [facility] MAG[facility] 2021-10-03 11:49:00 [facility] HEPATIC FUNCTION PANEL 2021-10-03 11:49:00 [facility] ([id number]) (ALB,T.PRO,BILI [facility] T,BU/BC,ALT,AST,ALK PHOS) BASIC METABOLIC PANEL 2021-10-03 11:49:00 [facility] (NA, K, CL, CO2, GLUCOSE, Medica l Branch BUN, CREATININE, CA) CBC WITH DIFF 2021-10-03 11:49:00 [facility] MRSA / MSSA SCREEN BY 2021-10-03 11:24:00 [facility] PCR, [facility] AC PANEL 20 + LACTIC ACID 2021-10-03 11:23:00 [facility] 2021-10-03 10:28:00 Laurie Fiore [facility] VA INSERT EMERGENCY 2021-10-03 10:28:00 Laurie Fiore [facility] ENDOTRACH AIRWAY Medical Branch COVID-19 (ID NOW RAPID 2021-10-03 05:19:[address] [facility] TESTING) Medical Branch LAB ONLY COVID 2021-10-03 05:19:00 Laurie Fiore [facility] INTERPRETATION [facility] POCT TEST 2021-10-03 04:53:00 Laurie Fiore [facility] CREATINE KINASE 2021-10-03 04:48:00 Laurie Fiore [facility] TEST, SERUM 2021-10-03 04:48:00 Laurie Fiore [facility] COMP. METABOLIC PANEL 2021-10-03 04:48:00 Laurie Fiore [facility] ([id number]) [facility] SALICYLATE 2021-10-03 04:48:00 Adebayo Laurie [facility] ETHANOL 2021-10-03 04:48:00 Adebayo Laurie [facility] CBC WITH DIFF 2021-10-03 04:48:00 Adebayo [facility] URINALYSIS 2021-10-03 04:48:00 Adebayo Laurie [facility] URINE DRUG (IMMUNOASSAY) 2021-10-03 04:48:00 Laurie Fiore [facility] DRUG Medical [facility] SCREEN W/O REFLEX XR CHEST 1 VW 2021-10-03 04:02:48 Laurie Fiore [facility] NOTICE OF PRIVACY 2021-07-23 02:08:37 Doctor Unassigned, [facility] [place] Medical Branch CONSENT/REFUSAL FOR 2021-07-23 02:07:51 Doctor Unahansa, [facility] DIAGNOSIS AND TREATMENT [place] [facility] [place] NOTICE OF PRIVACY 2021-06-24 21:03:18 Doctor Unassigned, [facility] [place] [facility] [place] CONSENT/REFUSAL FOR 2021-06-24 21:03:07 Doctor Unassigned, [facility] DIAGNOSIS AND TREATMENT [place] [facility] [place] XR CHEST 1 VW 2020-09-12 02:56:56 Grace Salmon [facility] POCT TEST 2020-09-12 02:09:00 Grace Salmon [facility] COVID-19 (ID NOW RAPID 2020-09-12 02:06:00 Grace Salmon [facility] TESTING) Medical Branch CONSENT/REFUSAL FOR 2020-09-12 01:20:13 Doctor Unasstrell, [facility] DIAGNOSIS AND TREATMENT [place] [facility] [place] NOTICE OF PRIVACY 2020-06-12 15:58:15 Doctor Unassigned, [facility] [place] [facility] [place] CONSENT/REFUSAL FOR 2020-06-12 15:58:[address] [facility] DIAGNOSIS AND TREATMENT [place] [facility] [place] NOTICE OF PRIVACY 2020-01-03 14:52:20 Doctor Unassigned, [facility] [place] [facility] [place] CONSENT/REFUSAL FOR 2020-01-03 14:51:[address] [facility] DIAGNOSIS AND TREATMENT [place] [facility] [place] POCT TEST 2019-07-26 20:23:[address] [facility] CBC WITH DIFFERENTIAL 2019-04-21 10:10:00 Yamel Diallo [facility] VENOUS CORD GAS 2019-04-20 23:48:00 [facility] HB ABO GROUPING 2019-04-20 18:00:00 Yamel Diallo [facility] o [facility] RHO (D) IMMUNE GLOBULIN 2019-04-20 18:00:00 Yamel Diallo [facility] CBC WITH DIFFERENTIAL 2019-04-20 17:57:00 Yamel Diallo [facility] HEPATITIS B SURFACE 2019-04-20 17:57:00 Yamel Diallo [facility] ANTIGEN [facility] ADC OR IVETH ONLY - RPR 2019-04-20 17:57:00 Yamel Diallo [facility] HIV 1/2 AG-AB WITH REFLEX 2019-04-20 17:57:00 [facility]amel [facility] CONSENT/REFUSAL FOR 2019-04-20 16:37:[address] [facility] DIAGNOSIS AND TREATMENT [place] [facility] [place] ASSIGNMENT OF BENEFITS 2019-04-20 16:37:37 Doctor Jack[facility] [place] POCT TEST 2018-11-01 19:45:00 Anamaria Biswas [facility] POCT URINALYSIS W/O 2018-11-01 19:45:00 Anamaria Biswas [facility] SPECIFIC GRAVITY Medical Branch ASSIGNMENT OF BENEFITS 2018-11-01 19:06:50 Doctor Unassigned, [facility] [place] [facility] Plan of Care Planned Activity Planned Date Details Comments Source Future Scheduled 2022-01-09 [facility] 20:05:18 malignant neoplasm of cervix (procedure) [code = 325284356] Future Scheduled 2022-01-09 [facility] 20:05:18 [code = INFLUENZA VACCINE] Future Scheduled 2022-01-09 [facility] 20:05:18 VACCINES (1 of 3 - 3-dose series) [code = HEPATITIS B VACCINES (1 of 3 - 3-dose series)] Future Scheduled 2022-01-09 COVID-19 [facility]ACCINE [facility] 20:05:18 (#1) [code = COVID-19 VACCINE (#1)] Future Scheduled 2022-01-09 [facility]atitis C [facility] 20:05:18 screening (procedure) [code = 597144527] Future Scheduled 2021-11-15 [facility] 10:47:23 [code = INFLUENZA VACCINE] Future Scheduled 2021-11-15 [facility] 10:47:23 VACCINES (1 of 3 - 3-dose series) [code = HEPATITIS B VACCINES (1 of 3 - 3-dose series)] Future Scheduled 2021-11-15 COVID-19 [facility]ACCINE [facility] 10:47:23 (#1) [code = COVID-19 VACCINE (#1)] Future Scheduled 2021-11-15 [facility] 10:47:23 screening (procedure) [code = 081728861] Future Scheduled 2021-11-15 [facility] Test 10:47:23 malignant neoplasm of cervix (procedure) [code = 957510142] Future Scheduled 2021-11-15 [facility]INE [facility] 10:47:23 [code = INFLUENZA VACCINE] Future Scheduled 2021-11-15 [facility] 10:47:23 VACCINES (1 of 3 - 3-dose series) [code = HEPATITIS B VACCINES (1 of 3 - 3-dose series)] Future Scheduled 2021-11-15 COVID-19 [facility]ACCINE [facility] 10:47:23 (#1) [code = COVID-19 VACCINE (#1)] Future Scheduled 2021-11-15 [facility] 10:47:23 screening (procedure) [code = 712865558] Future Scheduled 2021-11-15 [facility] Test 10:47:23 malignant neoplasm of cervix (procedure) [code = 835252195] Goal Plan of Care Note [code = 01918-3] Goal Plan of Care Note [code = 14442-6] Goal Plan of Care Note [code = 33140-5] Goal Plan of Care Note [code = 55583-7] Goal Plan of Care Note [code = 64284-2] Goal Plan of Care Note [code = 06776-8] Goal Plan of Care Note [code = 58772-0] Goal Plan of Care Note [code = 71810-3] Goal Plan of Care Note [code = 30454-9] Goal Plan of Care Note [code = 73135-3] Goal Plan of Care Note [code = 82138-1] Goal Plan of Care Note [code = 02755-2] Goal Plan of Care Note [code = 77800-9] Goal Plan of Care Note [code = 98165-1] Goal Plan of Care Note [code = 83050-6] Goal Plan of Care Note [code = 93201-5] Goal Plan of Care Note [code = 11486-1] Goal Plan of Care Note [code = 66135-7] Goal Plan of Care Note [code = 25097-8] Goal Plan of Care Note [code = 46711-0] Goal Plan of Care Note [code = 47693-6] Goal Plan of Care Note [code = 19208-4] Goal Plan of Care Note [code = 69607-2] Goal Plan of Care Note [code = 95244-9] Goal Plan of Care Note [code = 24712-5] Goal Plan of Care Note [code = 61491-4] Encounters Start End Encounter Admission Attending Care Care Encounter Source Date/Time Date/Time Type Type Clinicians Facility Department ID 2021-01-14 Emergency [facility] [id number] Univers 04:48:57 [facility] 2021-01-13 Emergency [facility] [id number] Univers 09:29:25 ity of [facility] 2021-01-11 Emergency [facility] [id number] Univers 23:55:14 ity [facility] 2022-01-20 2022-01-20 Outpatient R SENAIT LEE [facility] B [id number] Univers 10:30:00 10:30:00 SENAIT LEE [facility] 2022-01-06 2022-01-06 Outpatient R SENAIT LEE [facility] B [id number] Univers 10:30:00 11:15:32 SENAIT LEE [facility] 2022-01-06 2022-01-06 [facility] 1.2.840.114 [id number] Univers 10:30:00 11:15:32 Senait SEYMOUR 350.1.13.10 i ty of Visit [facility] 4.2.7.2.686 [facility] [id number] [facility] 134 Branch 2022-01-06 2022-01-06 Orders Doctor KIM 1.2.840.114 [id number] Univers 00:00:00 00:00:00 Only Unassigned, SHYANN 350.1.13.10 ity of [place] [facility] 4.2.7.2.686 Eulogio [id number] [facility] 009 Branch 2021-11-28 2021-11-28 Outpatient [id number] 00:00:00 00:00:00 Visit 52m5-75w4 8a8-64j4-0 -18m1-fnn 6k5-hrk2xv 7mf4h3l89 5e6f07 2021-11-21 2021-11-21 Outpatient [id number] 00:00:00 00:00:00 Visit 487a-4b91 87a-4b91-8 -880e-08e 80e-52z093 [id number] 9ba06d 2021-10-28 2021-10-28 Orders Doctor KIM 1.2.840.114 [id number] Univers 00:00:00 00:00:00 Only Unassigned, SHYANN 350.1.13.[address] [facility] 4.2.7.2.686 Eulogio as [id number] [facility] 009 Branch 2021-10-08 2021-10-08 Transition JEREMY Bennett 1.2.840.114 [id number] Univers 00:00:00 00:00:00 of Care Ligia VALLEJO 350.1.13.10 i ty of [place] [id number] [facility] 403 Branch 2021-10-02 2021-10-07 Inpatient [facility] [id number] Univers 22:16:00 13:00:00 LEONEL itdaily of [facility] 2021-10-02 2021-10-07 Hospital Adebayo Laurie DEVIN 1.2.840.1 14 [id number] Univers 22:16:00 13:00:00 Encounter Leonel Miller 350.1.13 .10 ity of [facility] 4.2.7.2.686 Leonel Alvarado [id number] [facility] 097 Branch 2021-07-22 2021-07-22 Emergency [facility] ERT [id number] Univers 21:31:00 22:44:00 BEN ity [facility] 2021-07-22 2021-07-22 Emergency [facility] 1.2.173.500 [id number] Univers 21:31:00 22:44:00 Ben S DARREN 350.1.13.10 i ty of [place] [id number] [facility] 084 Branch 2021-06-24 2021-06-24 Emergency X SILAS, [facility] ERT [id number] Univers 16:14:00 17:33:00 MITALI ity [facility] 2021-06-24 2021-06-24 Emergency Rosen, [facility] 1.2.840.114 [id number] Univers 16:14:00 17:33:00 Mitali BANKS 350.1.13.10 i ty of [facility] 4.2.7.2.686 [facility] [id number] [facility] 084 Branch 2020-09-11 2020-09-[address] [facility] 1.2.951.445 [id number] Univers 20:38:00 22:54:00 Grace Capellan Darren 350.1.13.10 ity of [place] 4.2.7.2.686 [facility] [phone] [place] [address] [place] 2020-09-11 2020-09-11 Orders Doctor KIM 1.2.840.114 [id number] Univers 00:00:00 00:00:00 Only Unassigned, SHYANN 350.1.13.10 ity of [place] [facility] [address].7[address] [place] [phone] 2020-08-20 2020-08-20 Outpatient Ever [facility] [id number] Univers 10:30:00 10:30:00 [facility] 2020-07-02 2020-07-02 Outpatient Ever [facility] [id number] Univers 11:00:00 11:00:00 [facility] 2020-06-12 2020-06-12 Emergency [facility] 1.2.840.114 [id number] 11:05:00 11:12:00 Mitali Banks 350.1.13.[address] [place] [address] [place] [address] [id number] [id number] 2020-06-12 2020-06-12 Emergency [facility] 1.2.840.114 [id number] Univers 11:05:00 11:12:00 Mitali Banks 350.1.13.10 i ty of [place] 4.2.7.2.[address] [place] [phone] 2020-06-12 2020-06-12 Orders Doctor ALVAREZ 1.2.840.114 [id number] 00:00:00 00:00:00 Only Unassigned, SHYANN 350.1.13.10 [place] [facility] 4.2.7.2.68 [id number] 009 2020-06-12 2020-06-12 Orders Doctor KIM 1.2.840.114 [id number] Univers 00:00:00 00:00:00 Only Unassigned, SHYANN 350.1.13.10 ity of [place] [facility] 4.2.7.2.686 Eulogio as [phone] [facility] 009 Branch 2020-06-05 2020-06-05 Patient [facility] 1.2.840.114 [id number] 00:00:00 00:00:00 Outreach Miguel Angel PRIMARY 350.1.13.10 [facility] 4.2.7.2.686 PAVILLION [id number] 2020-06-05 2020-06-05 [facility] 1.2.840.114 [id number] Univers 00:00:00 00:00:00 Outreach Miguel Angel PRIMARY 350.1.13.10 i ty of [facility] 4.2.7.2.[place] [phone] Nv dical [address] [place] [address] 2020-01-03 2020-01-03 Emergency [facility] 1.2.840.114 [id number] 10:20:00 11:05:00 Emily Banks 350.1.13.10 [place] 4.2.7.2.686 [place] [id number] [facility] 2020-01-03 2020-01-03 Emergency [facility] 1.2.840.114 [id number] [facility] 10:20:00 11:05:00 Emily Banks 350.1.13.10 ity of [place] 4.2.7.2.686 [facility] [place] [phone] [facility] 084 [place] 2020-01-03 2020-01-03 Telephone Linnette Jain 1.2.840.114 [id number] 00:00:00 00:00:00 HSYANN 350.1.13.10 [facility] 4.2.7.2.686 [id number] [facility][note 2] 2020-01-03 2020-01-03 Telephone Linnette Jain 1.2.840.114 [id number] [facility] 00:00:00 00:00:00 SHYANN 350.1.13.10 it y of [facility] 4.2.7.2.686 Eulogio as [phone] [address] 2019-11-04 2019-11-04 Outpatient R [facility] [id number] Univers 10:00:00 10:00:00 ity [facility] 2019-08-12 2019-08-12 Nurse Visit, [facility] 1.2.840.114 [id number] 10:14:36 10:29:36 [facility] 350.1.13.10 Nurse REGIONAL 4.2.7.2.686 MATERNAL [id number] & CHILD 107 [facility] 2019-08-12 2019-08-12 Nurse [facility] Nurse [facility] 1.2 .840.114 [id number] Univers 10:14:36 10:29:36 Visit Heaven Guadalupe CONCRETE TESTER 350.1.13. 10 ity [facility] 4.2.7.2.686 Eulogio as MATERNAL [phone] Med ical & CHILD [address] [place] [address] 2019-08-12 2019-08-12 Outpatient R [facility] [id number] Univers 10:00:00 10:00:00 HEAVEN ity o f [facility] 2019-08-12 2019-08-12 [facility]phone [facility] 1.2.840.114 [id number] 00:00:00 00:00:00 Heaven C CONCRETE TESTER 350.1.13.10 REGIONAL 4.2.7.2.686 MATERNAL [id number] & CHILD 107 [facility] 2019-08-12 2019-08-12 Case Collins [facility] 1.2.244.539 [id number] 00:00:00 00:00:00 Management Heaven C CONCRETE TESTER 350.1.13.10 REGIONAL 4.2.7.2.686 MATERNAL [id number] & CHILD 107 [facility] 2019-08-12 2019-08-12 Telephone Collins [facility] 1.2.840.114 [id number] Univers 00:00:00 00:00:00 Heaven C CONCRETE TESTER 350.1.13.10 ity of [facility] 4.2.7.2.686 Eulogio as MATERNAL [phone] Med ical & CHILD [address] [place] [address] 2019-08-12 2019-08-12 [facility] 1.2.762.974 [id number] Univers 00:00:00 00:00:00 Management Heaven C CONCRETE TESTER 350.1.13.10 ity of REGIONAL 4.2.7.2.686 Eulogio as MATERNAL [id number] [facility] ical & CHILD [address] [place] [address] 2019-08-11 2019-08-11 Tele[facility] 1.2.840.114 [id number] 00:00:00 00:00:00 Heaven C CONCRETE TESTER 350.1.13.10 REGIONAL 4.2.7.2.686 MATERNAL [id number] & CHILD [address] [place] [address] 2019-08-11 2019-08-11 Telephone [facility] 1.2.840.114 [id number] Univers 00:00:00 00:00:00 Heaven C CONCRETE TESTER 350.1.13.10 ity of REGIONAL 4.2.7.2.686 Eulogio as MATERNAL [id number] [facility] CH[facility] [address] [place] [address] 2019-07-26 2019-07-26 Office [facility] 1.2.118.013 [id number] 14:00:18 15:22:03 Visit Heaven C CONCRETE TESTER 350.1.13.10 REGIONAL 4.2.7.2.686 MATERNAL [id number] & CHILD [address] [place] [address] 2019-07-26 2019-07-26 Office [facility] 1.2.729.930 [id number] [facility] 14:00:18 15:22:03 Visit Heaven C CONCRETE TESTER 350.1.13.10 ity of REGIONAL 4.2.7.2.686 Eulogio as MATERNAL [phone] [facility] CH[facility] [address] [place] [address] 2019-07-26 2019-07-26 Outpatient R [facility] [id number] Univers 14:15:00 14:15:00 HEAVEN ity o f [facility] 2019-07-13 2019-07-13 Telephone [facility] 1.2.840.114 [id number] Univers 00:00:00 00:00:00 Anamaria N CONCRETE TESTER 350.1.13.10 it y of [facility] 4.2.7.2.686 Eulogio as MATERNAL [phone] Med ical & CHILD 107 [facility] 2019-04-20 2019-04-21 Hospital Yamel Diallo [facility] 1.2.840.114 [id number] Univers 10:29:00 20:22:00 Encounter Amado [place] 350.1.13.10 ity of [place] 4.2.7.2.686 [place] [facility] [id number] [facility] 083 [place] 2019-04-20 2019-04-20 Telephone Xavier [facility] 1.2.840.114 [id number] Univers 00:00:00 00:00:00 Anamaria Blum CONCRETE TESTER 350.1.13.10 it y of [facility] 4.2.7.2.686 Eulogio as MATERNAL [phone] Med ical & CHILD [address] [place] [address] 2019-04-19 2019-04-19 Patient Doctor [facility] 1.2.840.114 [id number] Univers 00:00:00 00:00:00 Secure Msg Unassigned, CONCRETE TESTER 350.1.13.10 ity of [place] [facility] 4.2.7.2.686 Eulogio as MATERNAL [id number] Med ical & CHILD [address] [place] [address] 2019-04-19 2019-04-19 Patient Doctor [facility] 1.2.840.114 [id number] Univers 00:00:00 00:00:00 Secure Msg Unassigned, CONCRETE TESTER 350.1.13.10 ity of [place] REGIONAL 4.2.7.2.686 Eulogio as MATERNAL [phone] Med ical & CHILD [address] [place] [address] 2018-11-03 2018-11-03 Telephone Xavier [facility] 1.2.840.114 [id number] Univers 00:00:00 00:00:00 Anamaria Blum CONCRETE TESTER 350.1.13.10 it y of [facility] 4.2.7.2.686 Eulogio as MATERNAL [phone] Med ical & CHILD [address] [place] [address] 2018-11-01 2018-11-01 Initial [facility] 1.2.344.247 [id number] Univers 14:25:40 15:32:55 Anamaria N CONCRETE TESTER 350.1.13.10 i ty of Visit [facility] 4.2.7.2.686 Eulogio as MATERNAL [id number] Med ical & CHILD 107 [facility] 2018-11-01 2018-11-01 Orders Doctor KIM 1.2.840.114 [id number] Univers 00:00:00 00:00:00 Only Unassigned, SHYANN 350.1.13.10 ity of [place] [facility] 4.2.7.2.686 Eulogio as [id number] [address] 2017-12-18 2017-12-18 [facility] [id number] Memoria 00:59:00 03:53:00 r Helder 01 [facility] 2017-12-18 2017-12-18 [facility] [id number] Memoria 00:59:00 03:53:00 r Helder 01 [facility] 2017-12-17 2017-12-17 Outpatient JESUS Pérez SE [id number] 19:59:00 22:53:00 Eric 2017-09-29 2017-09-29 Outpatient [facility] [id number] [place] 17:11:19 17:11:19 [facility] 2017-06-02 2017-06-02 Emergency [facility] [id number] Сергей 20:36:43 20:36:43 Health 2017-06-02 2017-06-02 Outpatient [facility] [id number] [place] 00:00:00 00:00:00 [facility] 2017-01-06 2017-01-08 [facility]patient [facility] [id number] Memoria 13:38:00 20:17:00 r Helder 00 l [facility] 2017-01-06 2017-01-08 Inpatient [facility] [id number] Memoria 13:38:00 20:17:00 r Helder 00 l [facility] 2017-01-06 2017-01-08 Outpatient [id number] 08:38:00 15:17:00 2016-12-05 2016-12-05 Outpatient [facility] [id number] [place] 00:00:00 00:00:00 [facility] 2016-12-05 2016-12-05 Outpatient [facility] [id number] [place] 00:00:00 00:00:00 [facility] 2016-11-28 2016-11-28 Outpatient [facility] [id number] [place] 00:00:00 00:00:00 [facility] 2016-11-26 2016-11-26 Outpatient [facility] [id number] [place] 16:32:00 16:32:00 [facility] 2016-11-26 2016-11-26 Outpatient [facility] [id number] [place] 00:00:00 00:00:00 [facility] 2016-11-13 2016-11-13 Emergency [facility] [id number] 9 [place] 02:04:55 02:04:55 [facility] 2016-08-25 2016-08-25 Emergency E [facility] [id number] [facility] 13:00:00 13:00:00 [facility] Results Test Description Test Time Test Comments Results Result Comments Source POCT URINALYSIS W/O SPECIFIC GRAVITY 2022-01-06 16:11:00 Test Item Value Reference Range Interpretation Comme nts POCT PH U (test code = 3254) N/A 5-8 POCT U LEUK EST (test code = 3263) N/A Negative - Negative POCT U NIT (test code = 3262) N/A Negative - Negative POCT U PROT (test code = 3259) Negative Negative - Negative POCT U GLU (test code = 3256) Negative Negative - Negative POCT U KETONE (test code = 3258) N/A Negative - Negative POCT U BLD (test code = 3257) N/A Negative - Negative [facility] [id number] 15:57:00 Test Item Value Reference Range Interpretation Comments POCT PREG (test code = 1605) Positive On board controls acceptable with C Yes Line (test code = 3574) POCT PREG LOT # (test code = 3575) POCT PREG TEST DATE (test code = 3576) [facility] HospitalCULTURE, [id number] 14:20:12SPECIMEN NUMBER: [id number] CULTURE, URINE SPECIMEN NUMBER: [id number] SPECIMEN COMMENT: URINE;[id number] SOURCE: URINE REPORT STATUS: FINAL FINAL REPORT: 12/06/2021 50- 100,000 CFU/ML UROGENITAL WOODY PRESENT NO COMMON PATHOGENS UNLESS OTHERWISE INDICATED, ALL TESTING PERFORMED [facility] [address] [place] [address] STUDIO MANAGER: LIBRADO ARCEO M.D. CLIA NUMBER [id number] [facility] [place]. [id number], [id number] 00:00:00 Test Item Value Reference Range Interpretation Comments CULTURE, URINE (test SPECIMEN NUMBER: code = 01121) [id number] CULTURE, [id number] 00:00:00 Test Item Value Reference Range Interpretation Comments CULTURE, URINE (test SPECIMEN NUMBER: code = 25817) [id number] CREATINE [id number] 16:45:55 Test Item Value Reference Range Interpretation Comments CK (test code = 3064098417) 505 U/L 33-194 H Lab Interpretation (test code = Abnormal 42290-8) [facility] HospitalFERRITIN [id number] 11:33:50 Test Item Value Reference Range Interpretation Comments FERRITIN (test code = 43.2 ng/mL 6-137 6987243899) OMARI (test code = OMARI) Biotin has been reported to cause a negative bias, interpret results relative to patient's use of biotin. Lab Interpretation (test Normal code = 18653-9) [facility] HospitalTHYROID STIMULATING [id number] 11:26:11 Test Item Value Reference Range Interpretation Comments TSH (test code = See_Comment Biotin has been 0995607487) reported to cau se a negative bias, interpret resul ts relative to pat ient's use of biotin. [Automated mess age] The system whic h generated this result transmitted ref erence range: 0.45 - 4 .70 mIU/L. The refe rence range was not u sed to interpret this result as normal/abnor mal. Lab Interpretation (test Normal code = 32648-9) [facility] HospitalIRON [id number] 11:02:44 Test Item Value Reference Range Interpretation Comments IRON (test code = 0232492447) 36 ug/dL 50-160 L TIBC (test code = 4010061296) 342 ug/dL 250-410 % FE SAT (test code = 3697714357) 11 % 20-50 L Lab Interpretation (test code = Abnormal 92056-3) [facility] HospitalBASI METABOLIC PANEL (NA, K, CL, CO2, GLUCOSE, BUN, CREATININE, CA)2021-10-07 10:53:28 Test Item Value Reference Range Interpretation Comments NA (test code = 139 mmol/L 135-145 6325784493) K (test code = 3.5 mmol/L 3.5-5 9649903565) CL (test code = 111 mmol/L 98-108 H 6081636578) CO2 TOTAL (test code = 20 mmol/L 23-31 L 8961331226) AGAP (test code = 2-16 9104940191) BUN (test code = 4 mg/dL 7-23 L 6310159861) GLUCOSE (test code = 101 mg/dL 70-110 7348769180) CREATININE (test code = 0.61 mg/dL 0.5-1.04 9548833630) CALCIUM (test code = 8.7 mg/dL 8.6-10.6 7330543129) eGFR (test code = mL/min/1.73m2 4536180111) OMARI (test code = OMARI) Association of [...] tests). Lab Interpretation Abnormal (test code = 31044-4) [facility] HospitalMAGNESIUM2022-07-25 10:53:28 Test Item Value Reference Range Interpretation Comments MAGNESIUM (test code = 0265153449) 1.7 mg/dL 1.7-2.4 Lab Interpretation (test code = Normal 20131-8) [facility] HospitalCB WITHOUT [id number] 10:16:24 Test Item Value Reference Range Interpretation Comments WBC (test code = 6690-2) See_Comment [A utomated message] The system [employer] generated this result transmit sue reference range : 4.30 - 11.10 10*3/?L. The reference range was not used to interpret this result as normal/abnormal . RBC (test code = 789-8) See_Comment L [Au tomated message] The system [employer] generated this result transmit sue reference range [...] 777-3) See_Comment [Au tomated message] The system [employer] generated this result transmit sue reference range : 166 - 358 10*3/?L. The reference range was not used to interpret this result as normal/abnormal . MPV (test code = 10.6 fL 9.5-12.9 50335-6) RDW-CV (test code = 15.3 % 12-15.5 788-0) RDW-SD (test code = 49.2 fL 39-49.9 35500-5) NRBC x10^3 (test code = See_Comment [Au tomated message] 4974764864) The system [employer] generated this result transmit sue reference range : 10*3/?L. The reference range was not used to interpret this result as normal/abnormal . NRBC/100 WBC (test code See_Comment [Au tomated message] = 4884641108) The system [employer] generated this result transmit sue reference range : 0.0 - 10.0 /100 WBC s. The reference r hugo was not used to interpret this result as normal/abnormal . IPF % (test code = 9479979965) Lab Interpretation (test Abnormal code = 88505-9) [facility] [place], [place] METABOLIC PANEL (NA, K, CL, CO2, GLUCOSE, BUN, CREATININE, CA)2021-10-04 09:59:51 Test Item Value Reference Range Interpretation Comments NA (test code = 139 mmol/L 135-145 3182296683) K (test code = 4.6 mmol/L 3.5-5 Slight 1145468723) hemolysis CL (test code = 112 mmol/L 98-108 H 6944176104) CO2 TOTAL (test code 22 mmol/L 23-31 L = 1021082018) AGAP (test code = 2-16 9911055349) BUN (test code = 5 mg/dL 7-23 L Slight 0009092142) hemolysis GLUCOSE (test code = 101 mg/dL 70-110 1916899523) CREATININE (test code 0.69 mg/dL 0.5-1.04 = 5779384590) CALCIUM (test code = 8.5 mg/dL 8.6-10.6 L 1543467695) eGFR (test code = mL/min/1.73m2 7016820846) OMARI (test code = OMARI) Association of [...] tests). Lab Interpretation Abnormal (test code = 42509-8) [facility] HospitalMAGNESIUM2022-07-22 09:59:51 Test Item Value Reference Range Interpretation Comments MAGNESIUM (test code = 2249620864) 2.0 mg/dL 1.7-2.4 Lab Interpretation (test code = Normal 29648-6) [facility] HospitalBasi Metabolic Panel (NA, K, CL, CO2, Glucose, BUN, Creatinine, CA)2021-10-03 13:13:02 Test Item Value Reference Range Interpretation Comments NA (test code = 143 mmol/L 135-145 3061559010) K (test code = 4.1 mmol/L 3.5-5 7843488640) CL (test code = 112 mmol/L 98-108 H 3140487471) CO2 TOTAL (test code = 21 mmol/L 23-31 L 7679453283) AGAP (test code = 2-16 6492204195) BUN (test code = 3 mg/dL 7-23 L 0030927770) GLUCOSE (test code = 114 mg/dL 70-110 H 7031696678) CREATININE (test code = 0.69 mg/dL 0.5-1.04 0955438955) CALCIUM (test code = 9.4 mg/dL 8.6-10.6 4228092523) eGFR (test code = mL/min/1.73m2 9405472836) OMARI (test code = OMARI) Association of [...] tests). Lab Interpretation Abnormal (test code = 74522-4) [facility] HospitalMagnesium [id number] 13:13:02 Test Item Value Reference Range Interpretation Comments MAGNESIUM (test code = 2747925722) 2.1 mg/dL 1.7-2.4 Lab Interpretation (test code = Normal 62208-4) [facility] HospitalPhosphorus [id number] 13:13:02 Test Item Value Reference Range Interpretation Comments PHOSPHORUS (test code = 3233932317) 3.3 mg/dL 2.5-5 Lab Interpretation (test code = Normal 44852-1) [facility] HospitalHepatic Function Panel (ALB, T.PRO, BILI T, BU/BC, ALT, AST, ALK, PHOS)2021-10-03 13:13:02 Test Item Value Reference Range Interpretation Comments TOTAL BILI (test code = 0624495929) 0.2 mg/dL 0.1-1.1 BILI UNCON (test code = 4179413993) 0.3 mg/dL 0.1-1.1 BILI CONJ (test code = 0848439075) 0.0 mg/dL 0-0.3 T PROTEIN (test code = 9443378895) 7.3 g/dL 6.3-8.2 ALBUMIN (test code = 9806860920) 4.1 g/dL 3.5-5 ALK PHOS (test code = 4428140091) 108 U/L 34-122 ALTv (test code = 1742-6) 20 U/L 5-35 AST(SGOT) (test code = 1094954101) 49 U/L 13-40 H Lab Interpretation (test code = Abnormal 30787-0) [facility] with [id number] 12:10:39 Test Item Value Reference Range Interpretation Comments WBC (test code = See_Comment [Automated 2790-2) message] The sy stem which generated this result transmitted reference range : 4.30 - 11.10 10*3/?L. The reference range was not used to interpret this result as normal/abnormal . RBC (test code = See_Comment [Automated 809-8) message] The sy stem which [...] RDW-SD (test code = 49.3 fL 39-49.9 27559-8) RDW-CV (test code = 15.8 % 12-15.5 H 788-0) PLT (test code = See_Comment [Automated 287-3) message] The sy stem which generated this result transmitted reference range : 166 - 358 10*3/ ?L. The reference r hugo was not used to interpret this result as normal/abnormal . MPV (test code = 10.1 fL 9.5-12.9 28836-5) NRBC/100 WBC (test See_Comment [Automat ed code = 0592977262) message] The system which generated this result transmitted reference range : 0.0 - 10.0 /100 WBCs. The refer ence range was not u sed to interpret th is result as normal/abnormal . NRBC x10^3 (test code See_Comment [Auto mated = 9227523824) message] The s ystem which generated this result transmitted reference range : 10*3/?L. The reference range was not used to interpret this result as normal/abnormal . GRAN MAT (NEUT) % 62.3 % (test code = 770-8) IMM GRAN % (test code 0.70 % = 7665217637) LYMPH % (test code = 29.5 % 736-9) MONO % (test code = 6.8 % 5905-5) EOS % (test code = 0.4 % 713-8) BASO % (test code = 0.3 % 706-2) GRAN MAT x10^3(ANC) 4.65 10*3/uL 1.88-7.09 (test code = 5763771728) IMM GRAN x10^3 (test 0.05 10*3/uL 0-0.06 code = 8053975485) LYMPH x10^3 (test code 2.20 10*3/uL 1.32-3.29 = 731-0) MONO x10^3 (test code 0.51 10*3/uL 0.33-0.92 = 742-7) EOS x10^3 (test code = 0.03 10*3/uL 0.03-0.39 711-2) BASO x10^3 (test code 0.01-0.07 = 704-7) Lab Interpretation Abnormal (test code = 99778-5) [facility] HospitalAC Panel 20 + Lactic [id number] 11:34:16 Test Item Value Reference Range Interpretation Comments PH (test code = 2) 7.35-7.45 PCO2 (test code = See_Comment L [Automate d 0185012000) message] The sy stem which generated this result transmitted reference range : 35 - 45 mmHg. The reference range was not used to interpret this result as normal/abnormal . PO2 (test code = See_Comment H [Automated 7086370134) message] The sy stem which generated this result transmitted reference range : 80 - 100 mmHg. The reference range was not used to interpret this result as normal/abnormal . HCO3 (test code = See_Comment L [Automate d 1333351818) message] The sy stem which generated this result transmitted reference range : 22 - 26 mEq/L. The reference range was not used to interpret this result as normal/abnormal . BE (test code = See_Comment L [Automated 5999837744) message] The sy stem which generated this result transmitted reference range : -3.0 - 3.0 mEq/ L. The reference r hugo was not used to interpret this result as normal/abnormal . THB (test code = 12.3 g/dL 12-16 7037144628) %O2HB (test code = 99.1 % 94-99 H 3961539058) %COHB ART (test code = 0.0 % 0-1.5 2661504786) %METHB ART (test code = 0.1 % 0.4-1.5 L 3509680305) VOL%O2 ART (test code = 17.5 % 15-23 2426496628) NA (test code = 141 mmol/L 135-145 7024015548) K+ (test code = 4.0 mmol/L 3.5-5 0681741409) AC CA IONZ (test code = 4.70 mg/dL 4.5-5.3 3181973636) GLUCOSE (test code = 102 mg/dL 70-110 9952143739) LACTIC ACID (test code 2.28 mmol/L 0.5-2.2 H = 1502967874) Lab Interpretation Abnormal (test code = 91273-1) [facility] WITH [id number] 05:44:57 Test Item Value Reference Range Interpretation [...] (test code = 50.4 fL 39-49.9 H 33067-3) RDW-CV (test code = 15.7 % 12-15.5 H 788-0) PLT (test code = See_Comment [Automated 777-3) message] The sy stem which generated this result transmitted reference range : 166 - 358 10*3/ ?L. The reference r hugo was not used to interpret this result as normal/abnormal . MPV (test code = 10.3 fL 9.5-12.9 11943-5) IPF % (test code = 4.1 % 1.3-7.7 Platelet count 0938527003) measured by fluorescence method. NRBC/100 WBC (test See_Comment [Automat ed code = 6493235761) message] The system which generated this result transmitted reference range : 0.0 - 10.0 /100 WBCs. The refer ence range was not u sed to interpret th is result as normal/abnormal . NRBC x10^3 (test code See_Comment [Auto mated = 3633844004) message] The s ystem which generated this result transmitted reference range : 10*3/?L. The reference range was not used to interpret this result as normal/abnormal . GRAN MAT (NEUT) % 68.8 % (test code = 770-8) IMM GRAN % (test code 1.00 % = 7131208314) LYMPH % (test code = 21.6 % 736-9) MONO % (test code = 7.7 % 5905-5) EOS % (test code = 0.6 % 713-8) BASO % (test code = 0.3 % 706-2) GRAN MAT x10^3(ANC) 7.31 10*3/uL 1.88-7.09 H (test code = 8587561479) IMM GRAN x10^3 (test 0.11 10*3/uL 0-0.06 H code = 5774630866) LYMPH x10^3 (test code 2.29 10*3/uL 1.32-3.29 = 731-0) MONO x10^3 (test code 0.82 10*3/uL 0.33-0.92 = 742-7) EOS x10^3 (test code = 0.06 10*3/uL 0.03-0.39 711-2) BASO x10^3 (test code 0.03 10*3/uL 0.01-0.07 = 704-7) PLT ESTIMATE (test Normal Normal code = 9317-9) Lab Interpretation Abnormal (test code = 32019-3) [facility] HospitalACETAMINOPHEN2022-07-21 05:24:02 Test Item Value Reference Range Interpretation Comments ACETAMINOP (test code = 10-30 L 8086444403) OMARI (test code = OMARI) Toxic: Greater than 200 ug/mL @ 4 hour post ingestion or greater than 50 ug/mL @ 12 hour post ingestion Lab Interpretation (test Abnormal code = 74539-3) [facility] HospitalETHANOL2022-07-21 05:23:47 Test Item Value Reference Range Interpretation Comments ALCOHOL (test code = 157 mg/dL 3953659006) OMARI (test code = OMARI) <10 Mgzqaipd73-609 Toxic>100 Depression of LATEX CASTER>400 Fatalities Reported [facility] HospitalSALICYLATE2022-07-21 05:23:22 SALICYLATE<10mg/L10/03/2021 12:23 AM [facility]The[facility] Range: ? Analgesic and Antipyretic Use ? 20- 100 mg/L ? ? Anti-Inflammatory Use ? 100-250 mg/L Toxic Range: ? Greater than 300 mg/LUnUT Health North Campus TylerCOMP. METABOLIC PANEL (66844)2021-10-03 05:23:07 Test Item Value Reference Range Interpretation Comments NA (test code = 140 mmol/L 135-145 4114165626) K (test code = 4.3 mmol/L 3.5-5 2325183216) CL (test code = 105 mmol/L 98-108 3244492831) CO2 TOTAL (test code = 19 mmol/L 23-31 L 3904612396) AGAP (test code = 2-16 0388484077) BUN (test code = 3 mg/dL 7-23 L 4313126111) GLUCOSE (test code = 110 mg/dL 70-110 6842901488) CREATININE (test code = 0.72 mg/dL 0.5-1.04 2076676541) TOTAL BILI (test code = 0.5 mg/dL 0.1-1.6 6762201237) CALCIUM (test code = 8.9 mg/dL 8.6-10.6 7042541875) T PROTEIN (test code = 7.7 g/dL 6.3-8.2 9863622978) ALBUMIN (test code = 4.4 g/dL 3.5-5 3782420106) ALK PHOS (test code = 111 U/L 34-122 5420851830) ALTv (test code = 22 U/L 5-35 1742-6) AST(SGOT) (test code = 35 U/L 13-40 7825510177) eGFR (test code = mL/min/1.73m2 3863364865) OMARI (test code = OMARI) Association of [...] tests). Lab Interpretation Abnormal (test code = 32374-6) [facility] HospitalCREATINE [id number] 05:22:46 Test Item Value Reference Range Interpretation Comments CK (test code = 6026114182) 562 U/L 33-194 H Lab Interpretation (test code = Abnormal 66833-5) [facility] HospitalPREGNANCY TEST, [id number] 05:20:36 Test Item Value Reference Range Interpretation Comments PREG SERUM (test code Negative = 6371237624) OMARI (test code = OMARI) Less than 10 IU/L. ?If low titer or ectopic is suspected, resubmit specimen in 48-72 hours. [facility] HospitalPOCT [id number] 04:53:00 Test Item Value Reference Range Interpretation Comments POCT PREG (test code = 1605) negative On board controls acceptable with positive C Line (test code = 3574) POCT PREG LOT # (test code = 3575) [id number] POCT PREG TEST DATE (test 01/13/2023 code = 3576) Lab Interpretation (test code = Normal 79564-9) [facility] HospitalHCG, [id number] 05:46:32 Test Item Value Reference Range Interpretation Comments HCG, QUANTITATIVE 176 MIU/ML SEE BELOW EXPECTED (test code = 2506) VALUES FO R HCG GST.AGE UNITS RANGE GST. AGE UNITS RANGE3 WEEKS NE U/ML 6-71 10 WEEKS M IU/ML 46,509-186,9774 WEEKS MIU/ML 10-750 1 2 WEEKS MIU/ML 27,832-2 10,6125 WEEKS MIU/ML 21 7-7,138 14 WEEKS MIU/ML 13,950-62,5306 WEEKS MIU/ML 158-31,7 95 15 WEEKS MIU/ML 12,039-70,9717 WEEKS MIU/ML 3,697-16 3,563 16 WEEKS MIU/ML 9,040-56,4518 W EEKS MIU/ML 32,065-1 49,571 17 WEEKS MIU/ML 8,175-55,8689 W EEKS MIU/ML 63,803-1 51,410 18 WEEKS MIU/ML 8,099-58,176MAL ES and NON- FE MALES . . . . . . . . M IU/ML 3-5WVHH-FRTUNDJ ADEN FEMALES . . . . . . . . . . . . MIU/M L <=7 UNLESS OTHERWIS E INDICATED, ALL TESTING PERFORMED [facility], [id number] [place] [address] DIRECTOR: LIBRADO ARCEO M.D. CLIA NUMBER [id number] [facility] ACCREDITATION N O. [id number] HCG, [id number] 00:00:00 Test Item Value Reference Range Interpretation Comments HCG, QUANTITATIVE (test code = 176 MIU/ML 2506) HCG, [id number] 00:00:00 Test Item Value Reference Range Interpretation Comments HCG, QUANTITATIVE (test code = 176 MIU/ML 2506) HCG, [id number] 00:00:00 Test Item Value Reference Range Interpretation Comments HCG, QUANTITATIVE (test code = 176 MIU/ML 2506) HCG, [id number] 00:00:00 Test Item Value Reference Range Interpretation Comments HCG, QUANTITATIVE (test code = 176 MIU/ML 2506) HCG, [id number] 00:00:00 Test Item Value Reference Range Interpretation Comments HCG, QUANTITATIVE (test code = 176 MIU/ML 2506) HCG, [id number] 00:00:00 Test Item Value Reference Range Interpretation Comments HCG, QUANTITATIVE (test code = 176 MIU/ML 2506) XR CHEST 1 [id number] 03:41:35No acute pulmonary disease. RL: ?3201 History: [...] recesses are clear.IMPRESSIONNo acute pulmonary disease.RL: 3201 [facility] TylerCOVID-19 (ID NOW RAPID TESTING)2020-09-12 02:28:09 Test Item Value Reference Range Interpretation Comments SARS-CoV-2 Rapid ID NOW Not Detected Not Detected (test code = 85411-7) OMARI (test code = OMARI) ID NOW COVID-19 Assay is an isothermal nucleic acid amplification test intended for the qualitative detection of nucleic acid from SARS-CoV-2 viral RNA in nasopharyngeal (TOGGLE PRESS OPERATOR) specimens. It is used under Emergency Use [...] indicated. Lab Interpretation Normal (test code = 19841-9) [facility] [id number] 02:09:00 Test Item Value Reference Range Interpretation Comments POCT PREG (test code = 1605) negative On board controls acceptable with present C Line (test code = 3574) POCT PREG LOT # (test code = 3575) [id number] POCT PREG TEST DATE (test 03/15/2022 code = 3576) Lab Interpretation (test code = Normal 05391-6) [facility] [id number] 20:23:00 Test Item Value Reference Range Interpretation Comments POCT PREG (test code = 1605) Negative On board controls acceptable with C Yes Line (test code = 3574) POCT PREG LOT # (test code = 3575) POCT PREG TEST DATE (test code = 3576) [facility] [id number] 20:23:00 Test Item Value Reference Range Interpretation Comments POCT PREG (test code = 1605) Negative On board controls acceptable with C Yes Line (test code = 3574) POCT PREG LOT # (test code = 3575) POCT PREG TEST DATE (test code = 3576) [facility] WITH [id number] 10:36:00 Test Item Value Reference Range Interpretation Comments WBC (test code = See_Comment [Automated 7890-2) message] The sy stem which generated this result transmitted reference range : 4.30 - 11.10 10*3/?L. The reference range was not used to interpret this result as normal/abnormal . RBC (test code = See_Comment L [Automated 839-8) message] The sy stem which generated this [...] RDW-SD (test code = 42.5 fL 39-49.9 09635-2) RDW-CV (test code = 12.1 % 12-15.5 788-0) PLT (test code = See_Comment L [Automated 777-3) message] The sy stem which generated this result transmitted reference range : 166 - 358 10*3/ ?L. The reference r hugo was not used to interpret this result as normal/abnormal . MPV (test code = 10.4 fL 9.5-12.9 86062-7) NRBC/100 WBC (test See_Comment [Automat ed code = 6924564299) message] The system which generated this result transmitted reference range : 0.0 - 10.0 /100 WBCs. The refer ence range was not u sed to interpret th is result as normal/abnormal . NRBC x10^3 (test code <0.01 See_Comment [Auto mated = 5733146135) message] The s ystem which generated this result transmitted reference range : 10*3/?L. The reference range was not used to interpret this result as normal/abnormal . GRAN MAT (NEUT) % 64.8 % (test code = 770-8) IMM GRAN % (test code 0.80 % = 4642675729) LYMPH % (test code = 22.6 % 736-9) MONO % (test code = 10.4 % 5905-5) EOS % (test code = 1.1 % 713-8) BASO % (test code = 0.3 % 706-2) GRAN MAT x10^3(ANC) 7.01 10*3/uL 1.88-7.09 (test code = 3887337566) IMM GRAN x10^3 (test 0.09 10*3/uL 0-0.06 H code = 1872962655) LYMPH x10^3 (test code 2.45 10*3/uL 1.32-3.29 = 731-0) MONO x10^3 (test code 1.12 10*3/uL 0.33-0.92 H = 742-7) EOS x10^3 (test code = 0.12 10*3/uL 0.03-0.39 711-2) BASO x10^3 (test code 0.03 10*3/uL 0.01-0.07 = 704-7) Lab Interpretation Abnormal (test code = 32302-9) [facility] HospitalRHO (D) IMMUNE [id number] 03:46:32 Test Item Value Reference Range Interpretation Comments RHIG CANDIDATE? No- see comment Patient i s not a (test code = candidate for R hIg- 5055) Patient is Rh Positive.Perfor med at [facility] Laboratory Services - [facility] Blood [address] [place] [id number] Free: [phone] A No. [id number] [facility] OR IVETH ONLY - [id number] 01:33:00 Test Item Value Reference Range Interpretation Comments RPR (Qualitative) (test code = Nonreactive Nonreactive 69119-9) Lab Interpretation (test code = Normal 34232-6) [facility] HospitalVenous Cord Nca2325-05-50 23:57:00 Test Item Value Reference Range Interpretation Comments VENOUS BASE EXCESS, mEq/L CORD (test code = 7245541936) VENOUS PH, CORD (test 7.25-7.45 code = 1521502230) VENOUS PC02, CORD See_Comment [Automate d message] The (test code = system which ge nerated 3020581379) this result tra nsmitted reference range : 27 - 49 mmHg. The refer ence range was not used to interpret this result as normal/abnormal . VENOUS PO2, CORD (test See_Comment [Aut omated message] The code = 3732674030) system [facility] generated this result tra nsmitted reference range : 17 - 41 mmHg. The refer ence range was not used to interpret this result as normal/abnormal . VENOUS BICARBONATE, See_Comment [Automa sue message] The CORD (test code = system whi ch generated 3701178152) this result tra nsmitted reference range : 12 - 29 mEq/L. The refe rence range was not used to interpret this result as normal/abnormal . [facility] HospitalHepatitis B Surface [id number] 21:34:00 Test Item Value Reference Range Interpretation Comments HBsAg Semi-Quantitative (test code = Negative Negative 5195-3) [facility] 1/2 AG-AB WITH [id number] 19:45:00 Test Item Value Reference Range Interpretation Comments HIV Negative Negative Semi-quantitative (test code = 29510-8) OMARI (test code = Non-reactive for HIV-1 OMARI) antigen and HIV-1/HIV-2 antibodies. ?No laboratory evidence of HIV infection. ?Repeat in 2-4 weeks if acute HIV infection is suspected. [facility] HospitalType and Screen - ONCE [id number] 18:48:31 Test Item Value Reference Range Interpretation Comments ABO & RH (test code O Positive Performe d at [facility] = 20) Laboratory Serv [facility] Blood Bank1 [address] [place], [place] [id number] Free: [phone] A No. [id number] IAT (test code = Negative Performed a t [facility] 1185) Laboratory Serv [facility] [address] [place], [place] [address]Toll Free: [phone] A No. [id number] [facility] WITH [id number] 18:12:00 Test Item Value Reference Range Interpretation Comments WBC (test code = See_Comment [Automated 0990-2) message] The sy stem which generated this result transmitted reference range : 4.30 - 11.10 10*3/?L. The reference range was not used to interpret this result as normal/abnormal . RBC (test code = See_Comment L [Automated 039-8) message] The sy stem which generated this [...] RDW-SD (test code = 43.8 fL 39-49.9 42685-9) RDW-CV (test code = 12.4 % 12-15.5 788-0) PLT (test code = See_Comment L [Automated 777-3) message] The sy stem which generated this result transmitted reference range : 166 - 358 10*3/ ?L. The reference r hugo was not used to interpret this result as normal/abnormal . MPV (test code = 10.2 fL 9.5-12.9 75177-6) NRBC/100 WBC (test See_Comment [Automat ed code = [id number]) message] The system which generated this result transmitted reference range : 0.0 - 10.0 /100 WBCs. The refer ence range was not u sed to interpret th is result as normal/abnormal . NRBC x10^3 (test code <0.01 See_Comment [Auto mated = [id number]) message] The s ystem which generated this result transmitted reference range : 10*3/?L. The reference range was not used to interpret this result as normal/abnormal . GRAN MAT (NEUT) % 65.8 % (test code = 770-8) IMM GRAN % (test code 1.00 % = 4852045221) LYMPH % (test code = 22.2 % 736-9) MONO % (test code = 9.6 % 5905-5) EOS % (test code = 1.1 % 713-8) BASO % (test code = 0.3 % 706-2) GRAN MAT x10^3(ANC) 4.13 10*3/uL 1.88-7.09 (test code = 4094314231) IMM GRAN x10^3 (test 0.06 10*3/uL 0-0.06 code = 2504167913) LYMPH x10^3 (test code 1.39 10*3/uL 1.32-3.29 = 731-0) MONO x10^3 (test code 0.60 10*3/uL 0.33-0.92 = 742-7) EOS x10^3 (test code = 0.07 10*3/uL 0.03-0.39 711-2) BASO x10^3 (test code <0.03 0.01-0.07 = 704-7) Lab Interpretation Abnormal (test code = 70192-8) [facility] [id number] 19:45:00 Test Item Value Reference Range Interpretation Comments POCT PREG (test code = 1605) Positive On board controls acceptable with C Yes Line (test code = 3574) POCT PREG LOT # (test code = 3575) POCT PREG TEST DATE (test code = 3576) [facility] URINALYSIS W/O SPECIFIC [id number] 19:45:00 Test Item Value Reference Range Interpretation [...] code = 3257) neg Negative - Negative [facility]CBC W/AUTO [id number] 20:53:00 Test Item Value Reference Range Interpretation [...] 0.0 x10 3/uL 0.0-0.1 N BASIC METABOLIC [id number] 20:11:00 Test Item Value Reference Range Interpretation [...] mg/dL 8.5-10.5 N = CA) LIVER FUNCTION [id number] 20:11:00 Test Item Value Reference Range Interpretation [...] code = 46 U/L 42-121 N ALKP) [id number] 20:11:00 Test Item Value Reference Range Interpretation Comments ALCOHOL (test code = 6 mg/dl Interpr etive Data:il: ALC) Ethanol Level T o convert into legal unit s, divide result by 1,000 DRUGS OF ABUSE SCREEN [id number] 19:58:00 Test Item Value Reference Range Interpretation [...] ng/mLRecommende d screening cut-o ff concentrations by theSubstance Ab use and Mental Health [facility]. UR CANABINOIDS (test POSITIVE [...] thebstance Ab use and Mental Health S ervices Administration. UR AMPHETAMINE (test POSITIVE NEGATIVE A The ing estion of natural code = AMPHU) herbal and bryce nt productscontain ing Ephedra/Ephedra -Metabolit es can produce in urineone or mor e substances capa ble of cross-reacting withAmphetamine /Methamphe davonte immunolupillo says. This testprovides a preliminary res ult only. A more specificalterna tive chemical method must be used to obtain aconfirmed analytical resu lt. This is a toxicology qualitative scr eening test only. Ifco nfirmatory testing is maxime red please request drug screenconfirmat ion. These results a re unconfirmed and should beused only for medical purposes. Cut-o ff concentration f or Amphetamines is 1000 ng/mLRecommende d screening cut-o ff concentrations by theSubstance Ab use and Mental [facility]. UR BARBITURATE (test NEGATIVE NEGATIVE This is a toxicology code = BARBQLU) qualitative screening test only. Ifco nfirmatory testing is maxime red please request drug screenconfirmat ion. These results are unc onfirmed and should beus ed only for medical pur poses. Cut-off concent ration for Barbiturates is 200 ng/mLRecommende d screening cut-o ff concentrations by thebstance Ab use and [facility] S ervices Administration. UR BENZODIAZEPINE NEGATIVE NEGATIVE This is a toxicology (test code = BENZU) qualitat macho screening test only. Ifco nfirmatory testing is maxime red please request drug screenconfirmat ion. These results are unc onfirmed and should beus ed only for medical pur poses. Cut-off concent ration for Benzodiazepines is 200 ng/mLRecommende d screening cut-o ff concentrations by theSubstance Ab use and [facility] S ervices Administration. UR OPIATES QUAL (test NEGATIVE NEGATIVE This i s a toxicology code = OPIAQLU) qualitative screening test only. Ifco nfirmatory testing is maxime red please request drug screenconfirmat ion. These results are unc onfirmed and should beus ed only for medical pur poses. Cut-off concent ration for Opiates is 300 ng/mLRecommende d screening cut-o ff concentrations by theSubstance Ab use and Mental [facility] S ervices Administration. UR PHENCYCLIDINE NEGATIVE NEGATIVE This is a t oxicology (PCP) (test code = qualitati ve screening PHENCU) test only. Ifco nfirmatory testing is maxime red please request drug screenconfirmat ion. These results are unc onfirmed and should beus ed only for medical pur poses. Cut-off concent ration for PCP is 25 ng/mLRecommende d screening cut-o ff concentrations by theSubstance Ab use and Mental [facility] S ervices Administration. HCG SERUM [id number] 19:53:00 Test Item Value Reference Range Interpretation Comments HCG SERUM QUAL POSITIVE NEGATIVE This is a makayla litative (test code = HCGQL) screenin g test.The quantitative Bh cg may be helpful.Weakly positive results should be repeated in 48 hours. URINALYSIS [id number] 19:50:00 Test Item Value Reference Range Interpretation [...] = MUCU) 1+ /LPF NONE SEEN MOLECULAR [id number] 15:53:00 Test Item Value Reference Range Interpretation Comments N gonorrhea by Amp Det Negative *NA*(01/06/17 (APTIMA) (test code = N 10:53 AM) gonorrhea by Amp Det (APTIMA)) [facility] [id number] 15:53:00 Test Item Value Reference Range Interpretation Comments Source APTIMA (test Urine *NA*(01/06/17 code = Source APTIMA) 10:53 AM) [facility] [id number] 15:53:00 Test Item Value Reference Range Interpretation Comments C trachomatis by Amp Det Negative (APTIMA) (test code = C *NA*(01/06/17 10:53 trachomatis by Amp Det AM) (APTIMA)) [facility] AND [id number] 15:53:00 Test Item Value Reference Range Interpretation Comments UA Bacteria (test code = UA Few /HPF Bacteria) [facility] AND [id number] 15:53:00 Test Item Value Reference Range Interpretation Comments UA RBC (test code = 0-2 /HPF See_Comment [Automa sue message] The UA RBC) system which ge nerated this result tra nsmitted reference range : <=2. The reference range was not used to interpr et this result as kaelyn l/abnormal. [facility] AND [id number] 15:53:00 Test Item Value Reference Range Interpretation Comments UA WBC (test code = UA WBC) 0-2 /HPF [facility] AND [id number] 15:53:00 Test Item Value Reference Range Interpretation Comments UA Sq Epi (test code = UA Sq Epi) Few /LPF [facility] AND [id number] 15:53:00 Test Item Value Reference Range Interpretation Comments UA Leuk Est (test Negative (01/06/17 10:53 code = UA Leuk Est) AM) [facility] AND [id number] 15:53:00 Test Item Value Reference Range Interpretation Comments UA Blood (test code = Trace *ABN*(01/06/17 UA Blood) 10:53 AM) [facility] AND [id number] 15:53:00 Test Item Value Reference Range Interpretation Comments UA Bili (test code = Negative *NA*(01/06/17 UA Bili) 10:53 AM) [facility] AND [id number] 15:53:00 Test Item Value Reference Range Interpretation Comments UA Protein (test code Negative (01/06/17 = UA Protein) 10:53 AM) [facility] AND [id number] 15:53:00 Test Item Value Reference Range Interpretation Comments UA Ketones (test code Negative *NA*(01/06/17 = UA Ketones) 10:53 AM) [facility] AND [id number] 15:53:00 Test Item Value Reference Range Interpretation Comments UA Glucose (test code Negative (01/06/17 = UA Glucose) 10:53 AM) [facility] [id number] 15:53:00 Test Item Value Reference Range Interpretation Comments UA Spec Grav (test code = UA Spec 1.015 1 Grav) [facility] [id number] 15:53:00 Test Item Value Reference Range Interpretation Comments UA pH (test code = UA pH) 7.0 1 5.0-8.0 [facility] [id number] 15:53:00 Test Item Value Reference Range Interpretation Comments UA Turbidity (test code = Clear (01/06/17 UA Turbidity) 10:53 AM) [facility] [id number] 15:53:00 Test Item Value Reference Range Interpretation Comments UA Color (test code = Yellow *NA*(01/06/17 UA Color) 10:53 AM) [facility] AND [id number] 15:53:00 Test Item Value Reference Range Interpretation Comments Micro? (test code = Performed (01/06/17 10:53 Micro?) AM) [facility] AND [id number] 15:53:00 Test Item Value Reference Range Interpretation Comments UA Nitrite (test code Negative (01/06/17 = UA Nitrite) 10:53 AM) [facility] AND [id number] 15:53:00 Test Item Value Reference Range Interpretation Comments UA Urobilinogen (test code = UA 1.0 0.1-1.0 Urobilinogen) [facility] [id number] 15:53:00 Test Item Value Reference Range Interpretation Comments U Creatinine (test code = U 125.00 Creatinine) [facility] [id number] 15:53:00 Test Item Value Reference Range Interpretation Comments U Prot/Creat (test code = U Prot/Creat) 0.2 [facility] [id number] 15:53:00 Test Item Value Reference Range Interpretation Comments U Protein (test code = U Protein) 19.2 [facility] [id number] 15:53:00 Test Item Value Reference Range Interpretation Comments N gonorrhea by Amp Det Negative *NA*(01/06/17 (APTIMA) (test code = N 10:53 AM) gonorrhea by Amp Det (APTIMA)) [facility] [id number] 15:53:00 Test Item Value Reference Range Interpretation Comments Source APTIMA (test Urine *NA*(01/06/17 code = Source APTIMA) 10:53 AM) [facility] [id number] 15:53:00 Test Item Value Reference Range Interpretation Comments C trachomatis by Amp Det Negative (APTIMA) (test code = C *NA*(01/06/17 10:53 trachomatis by Amp Det AM) (APTIMA)) [facility] [id number] 15:53:00 Test Item Value Reference Range Interpretation Comments UA Bacteria (test code = UA Few /HPF Bacteria) [facility] [id number] 15:53:00 Test Item Value Reference Range Interpretation Comments UA RBC (test code = 0-2 /HPF See_Comment [Automa sue message] The UA RBC) system which ge nerated this result tra nsmitted reference range : <=2. The reference range was not used to interpr et this result as kaelyn l/abnormal. [facility] [id number] 15:53:00 Test Item Value Reference Range Interpretation Comments UA WBC (test code = UA WBC) 0-2 /HPF [facility] [id number] 15:53:00 Test Item Value Reference Range Interpretation Comments UA Sq Epi (test code = UA Sq Epi) Few /LPF [facility] [id number] 15:53:00 Test Item Value Reference Range Interpretation Comments UA Leuk Est (test Negative (01/06/17 10:53 code = UA Leuk Est) AM) [facility] [id number] 15:53:00 Test Item Value Reference Range Interpretation Comments UA Blood (test code = Trace *ABN*(01/06/17 UA Blood) 10:53 AM) [facility] [id number] 15:53:00 Test Item Value Reference Range Interpretation Comments UA Bili (test code = Negative *NA*(01/06/17 UA Bili) 10:53 AM) [facility] [id number] 15:53:00 Test Item Value Reference Range Interpretation Comments UA Protein (test code Negative (01/06/17 = UA Protein) 10:53 AM) [facility] [id number] 15:53:00 Test Item Value Reference Range Interpretation Comments UA Ketones (test code Negative *NA*(01/06/17 = UA Ketones) 10:53 AM) [facility] [id number] 15:53:00 Test Item Value Reference Range Interpretation Comments UA Glucose (test code Negative (01/06/17 = UA Glucose) 10:53 AM) [facility] [id number] 15:53:00 Test Item Value Reference Range Interpretation Comments UA Spec Grav (test code = UA Spec 1.015 1 Grav) [facility] [id number] 15:53:00 Test Item Value Reference Range Interpretation Comments UA pH (test code = UA pH) 7.0 1 5.0-8.0 [facility] [id number] 15:53:00 Test Item Value Reference Range Interpretation Comments UA Turbidity (test code = Clear (01/06/17 UA Turbidity) 10:53 AM) [facility] [id number] 15:53:00 Test Item Value Reference Range Interpretation Comments UA Color (test code = Yellow *NA*(01/06/17 UA Color) 10:53 AM) [facility] [id number] 15:53:00 Test Item Value Reference Range Interpretation Comments Micro? (test code = Performed (01/06/17 10:53 Micro?) AM) [facility] [id number] 15:53:00 Test Item Value Reference Range Interpretation Comments UA Nitrite (test code Negative (01/06/17 = UA Nitrite) 10:53 AM) [facility] [id number] 15:53:00 Test Item Value Reference Range Interpretation Comments UA Urobilinogen (test code = UA 1.0 0.1-1.0 Urobilinogen) [facility] [id number] 15:53:00 Test Item Value Reference Range Interpretation Comments U Creatinine (test code = U 125.00 Creatinine) [facility] [id number] 15:53:00 Test Item Value Reference Range Interpretation Comments U Prot/Creat (test code = U Prot/Creat) 0.2 [facility] [id number] 15:53:00 Test Item Value Reference Range Interpretation Comments U Protein (test code = U Protein) 19.2 [facility] [employer] BANK [id number] 15:50:00 Test Item Value Reference Range Interpretation Comments Rhig Reqd (test code = See Note 1(01/06/17 Rhig Reqd) 10:50 AM) [facility] [employer] BANK [id number] 15:50:00 Test Item Value Reference Range Interpretation Comments Antibody Scrn (test Negative (01/06/17 code = Antibody Scrn) 10:50 AM) [facility] [employer] [id number] 15:50:00 Test Item Value Reference Range Interpretation Comments ABO/Rh (test code = ABO/Rh) O POS [facility] [employer] [facility] [id number] 15:50:00 Test Item Value Reference Range Interpretation Comments B/C Ratio (test code = B/C Ratio) 11 6-25 [facility] [employer] [id number] 15:50:00 Test Item Value Reference Range Interpretation Comments Globulin (test code = Globulin) 4.2 2.7-4.2 [facility] [employer] [id number] 15:50:00 Test Item Value Reference Range Interpretation Comments AGAP (test code = AGAP) 13.5 10.0-20.0 [facility] [employer]2017-10-24 15:50:00 Test Item Value Reference Range Interpretation Comments A/G Ratio (test code = A/G Ratio) 0.7 0.7-1.6 [facility] [employer] [id number] 15:50:00 Test Item Value Reference Range Interpretation Comments eGFR (test code = eGFR) 153 [facility] [employer] [id number] 15:50:00 Test Item Value Reference Range Interpretation Comments Sodium Lvl (test code = Sodium Lvl) 137 135-145 [facility] [employer] [id number] 15:50:00 Test Item Value Reference Range Interpretation Comments BUN (test code = BUN) 6 7-22 [facility] [employer] [id number] 15:50:00 Test Item Value Reference Range Interpretation Comments Glucose Lvl (test code = Glucose Lvl) 87 70-99 [facility] [employer] [id number] 15:50:00 Test Item Value Reference Range Interpretation Comments Creatinine Lvl (test code = Creatinine 0.57 0.50-1.40 Lvl) [facility]2017-10-24 15:50:00 Test Item Value Reference Range Interpretation Comments Calcium Lvl (test code = Calcium Lvl) 8.8 8.5-10.5 [facility]2017-10-24 15:50:00 Test Item Value Reference Range Interpretation Comments Total Protein (test code = Total 7.1 6.4-8.4 Protein) [facility]2017-10-24 15:50:00 Test Item Value Reference Range Interpretation Comments CO2 (test code = CO2) 20 24-32 [facility]2017-10-24 15:50:00 Test Item Value Reference Range Interpretation Comments Chloride Lvl (test code = Chloride Lvl) 107 95-109 [facility]2017-10-24 15:50:00 Test Item Value Reference Range Interpretation Comments Potassium Lvl (test code = Potassium 3.5 3.5-5.1 Lvl) [facility]2017-10-24 15:50:00 Test Item Value Reference Range Interpretation Comments AST (test code = AST) 16 See_Comment [Auto mated message] The system which ge nerated this result transmit sue reference range : <=37. The reference range was not used to interpr et this result as kaelyn l/abnormal. [facility]2017-10-24 15:50:00 Test Item Value Reference Range Interpretation Comments Albumin Lvl (test code = Albumin Lvl) 2.9 3.5-5.0 [facility]2017-10-24 15:50:00 Test Item Value Reference Range Interpretation Comments ALT (test code = ALT) 14 See_Comment [Auto mated message] The system which ge nerated this result transmit sue reference range : <=65. The reference range was not used to interpr et this result as kaelyn l/abnormal. [facility]2017-10-24 15:50:00 Test Item Value Reference Range Interpretation Comments Alk Phos (test code = Alk Phos) 136 39-136 [facility]2017-10-24 15:50:00 Test Item Value Reference Range Interpretation Comments Bili Total (test code = Bili Total) 0.6 0.2-1.3 [facility] [id number] 15:50:00 Test Item Value Reference Range Interpretation Comments U Opiate Scr (test Negative *NA*(01/06/17 code = U Opiate Scr) 10:50 AM) [facility] [id number] 15:50:00 Test Item Value Reference Range Interpretation Comments U Cannab Scr (test Negative *NA*(01/06/17 code = U Cannab Scr) 10:50 AM) [facility] [id number] 15:50:00 Test Item Value Reference Range Interpretation Comments UDS Note (test code = See Note (01/06/17 UDS Note) 10:50 AM) [facility] [id number] 15:50:00 Test Item Value Reference Range Interpretation Comments U Phencyc Scr (test Negative *NA*(01/06/17 code = U Phencyc Scr) 10:50 AM) [facility] [id number] 15:50:00 Test Item Value Reference Range Interpretation Comments U Lori Scr (test code Negative *NA*(01/06/17 = U Lori Scr) 10:50 AM) [facility] [id number] 15:50:00 Test Item Value Reference Range Interpretation Comments U Cocaine Scr (test Positive *ABN*(01/06/17 code = U Cocaine Scr) 10:50 AM) [facility] [id number] 15:50:00 Test Item Value Reference Range Interpretation Comments U Amph Scr (test code Negative *NA*(01/06/17 = U Amph Scr) 10:50 AM) [facility] [id number] 15:50:00 Test Item Value Reference Range Interpretation Comments U Benzodia Scr (test Negative *NA*(01/06/17 code = U Benzodia Scr) 10:50 AM) [place] [facility] H[id number] 15:50:00 Test Item Value Reference Range Interpretation Comments Basophils (test code = 0.5 See_Comment [Aut omated message] The Basophils) system which ge nerated this result tra nsmitted reference range : <=1.0. The reference r hugo was not used to int erpret this result as normal/abnormal . [facility] [id number] 15:50:00 Test Item Value Reference Range Interpretation Comments Eosinophils (test code = 0.3 See_Comment [A utomated message] The Eosinophils) system which ge nerated this result tra nsmitted reference range : <=4.0. The reference r hugo was not used to int erpret this result as normal/abnormal . [id number] 15:50:00 Test Item Value Reference Range Interpretation Comments Monocytes # (test code 0.7 See_Comment [Aut omated message] The = Monocytes #) system which generated this result tra nsmitted reference range : <=0.8. The reference r hugo was not used to int erpret this result as normal/abnormal . [facility] [id number] 15:50:00 Test Item Value Reference Range Interpretation Comments Segs-Bands # (test code = Segs-Bands #) 7.8 1.5-8.1 [facility] [id number] 15:50:00 Test Item Value Reference Range Interpretation Comments Lymphocytes # (test code = Lymphocytes 1.4 1.0-5.5 #) [facility] [id number] 15:50:00 Test Item Value Reference Range Interpretation Comments Monocytes (test code = Monocytes) 7.2 2.0-12.0 [facility] AustinTvvhtogFHXPQXZFGL0381-15-94 15:50:00 Test Item Value Reference Range Interpretation Comments Lymphocytes (test code = Lymphocytes) 14.0 20.0-40.0 [facility] A[id number] 15:50:00 Test Item Value Reference Range Interpretation Comments Segs (test code = Segs) 78.0 45.0-75.0 [facility] A[id number] 15:50:00 Test Item Value Reference Range Interpretation Comments MPV (test code = MPV) 9.0 7.4-10.4 [facility] A[id number] 15:50:00 Test Item Value Reference Range Interpretation Comments Platelet (test code = Platelet) 195 133-450 [facility] AustinQhtlwgqHOCHFPEHLY0531-41-71 15:50:00 Test Item Value Reference Range Interpretation Comments RDW (test code = RDW) 13.3 11.5-14.5 [facility] A[id number] 15:50:00 Test Item Value Reference Range Interpretation Comments MCH (test code = MCH) 31.4 pg 27.0-31.0 [facility] AustinZbjiaarGCRVQKWOOE8648-56-82 15:50:00 Test Item Value Reference Range Interpretation Comments MCHC (test code = MCHC) 34.0 32.0-36.0 [facility] AustinOzkimxuUAEDLQTEZX2529-21-83 15:50:00 Test Item Value Reference Range Interpretation Comments MCV (test code = MCV) 92.2 80.0-98.0 [facility]lwjvqzQWEZZMXMRJ4115-12-49 15:50:00 Test Item Value Reference Range Interpretation Comments Hct (test code = Hct) 36.4 36.0-48.0 [facility]WynyclsQMSEJROYQE8726-99-54 15:50:00 Test Item Value Reference Range Interpretation Comments RBC (test code = RBC) 3.95 4.20-5.40 [facility] AustinKqczhanVOBOTEFOBG7742-30-37 15:50:00 Test Item Value Reference Range Interpretation Comments Hgb (test code = Hgb) 12.4 12.0-16.0 [facility] AustinLokvlmqEMOCFZYAUR5846-35-69 15:50:00 Test Item Value Reference Range Interpretation Comments WBC (test code = WBC) 10.0 3.7-10.4 [id number] 15:50:00 Test Item Value Reference Range Interpretation Comments HIV. (test code = Negative *NA*(01/06/17 HIV.) 10:50 AM) [facility]MayimfbIEPGMQYPWK1635-48-27 15:50:00 Test Item Value Reference Range Interpretation Comments Hep Bs Ag (test code Negative *NA*(01/06/17 = Hep Bs Ag) 10:50 AM) [facility]08[facility]-32 15:50:00 Test Item Value Reference Range Interpretation Comments Treponemal Scr (test Non Reactive code = Treponemal Scr) *NA*(01/06/17 10:50 AM) [facility]RxprmxiFUXUBVPYTS4821-03-74 15:50:00 Test Item Value Reference Range Interpretation Comments Rubella IgG (test code = Rubella IgG) 66.9 [id number] 15:50:00 Test Item Value Reference Range Interpretation Comments Hep Bs Ag (test code Negative *NA*(01/06/17 = Hep Bs Ag) 10:50 AM) [facility] [employer] [id number] 15:50:00 Test Item Value Reference Range Interpretation Comments CO2 (test code = CO2) 20 24-32 [facility] [employer] [id number] 15:50:00 Test Item Value Reference Range Interpretation Comments Chloride Lvl (test code = Chloride Lvl) 107 95-109 [facility] [id number] 15:50:00 Test Item Value Reference Range Interpretation Comments Potassium Lvl (test code = Potassium 3.5 3.5-5.1 Lvl) [facility] [employer] [id number] 15:50:00 Test Item Value Reference Range Interpretation Comments AST (test code = AST) 16 See_Comment [Auto mated message] The system which ge nerated this result transmit sue reference range : <=37. The reference range was not used to interpr et this result as kaelyn l/abnormal. [facility] [employer] [id number] 15:50:00 Test Item Value Reference Range Interpretation Comments Albumin Lvl (test code = Albumin Lvl) 2.9 3.5-5.0 [facility] [employer] [id number] 15:50:00 Test Item Value Reference Range Interpretation Comments ALT (test code = ALT) 14 See_Comment [Auto mated message] The system which ge nerated this result transmit sue reference range : <=65. The reference range was not used to interpr et this result as kaelyn l/abnormal. [facility] [employer] [id number] 15:50:00 Test Item Value Reference Range Interpretation Comments Alk Phos (test code = Alk Phos) 136 39-136 [facility] [employer] [id number] 15:50:00 Test Item Value Reference Range Interpretation Comments Bili Total (test code = Bili Total) 0.6 0.2-1.3 [facility] [employer] [id number] 15:50:00 Test Item Value Reference Range Interpretation Comments U Opiate Scr (test Negative *NA*(01/06/17 code = U Opiate Scr) 10:50 AM) [facility] [employer]2017-10-24 15:50:00 Test Item Value Reference Range Interpretation Comments U Cannab Scr (test Negative *NA*(01/06/17 code = U Cannab Scr) 10:50 AM) [facility]2017-10-24 15:50:00 Test Item Value Reference Range Interpretation Comments UDS Note (test code = See Note (01/06/17 UDS Note) 10:50 AM) [facility]2017-10-24 15:50:00 Test Item Value Reference Range Interpretation Comments U Phencyc Scr (test Negative *NA*(01/06/17 code = U Phencyc Scr) 10:50 AM) [facility]2017-10-24 15:50:00 Test Item Value Reference Range Interpretation Comments U Lori Scr (test code Negative *NA*(01/06/17 = U Lori Scr) 10:50 AM) [facility]2017-10-24 15:50:00 Test Item Value Reference Range Interpretation Comments U Cocaine Scr (test Positive *ABN*(01/06/17 code = U Cocaine Scr) 10:50 AM) [facility]2017-10-24 15:50:00 Test Item Value Reference Range Interpretation Comments U Amph Scr (test code Negative *NA*(01/06/17 = U Amph Scr) 10:50 AM) [facility]2017-10-24 15:50:00 Test Item Value Reference Range Interpretation Comments U Benzodia Scr (test Negative *NA*(01/06/17 code = U Benzodia Scr) 10:50 AM) [facility] AustinNhcahbwEIBPHJQOPP1233-42-49 15:50:00 Test Item Value Reference Range Interpretation Comments Basophils (test code = 0.5 See_Comment [Aut omated message] The Basophils) system which ge nerated this result tra nsmitted reference range : <=1.0. The reference r hugo was not used to int erpret this result as normal/abnormal . [facility] AustinZphjfvsBRXVOSDABB1207-25-29 15:50:00 Test Item Value Reference Range Interpretation Comments Eosinophils (test code = 0.3 See_Comment [A utomated message] The Eosinophils) system which ge nerated this result tra nsmitted reference range : <=4.0. The reference r hugo was not used to int erpret this result as normal/abnormal . [facility] AustinIyznlsnPGLDCZBQIN8054-72-52 15:50:00 Test Item Value Reference Range Interpretation Comments Monocytes # (test code 0.7 See_Comment [Aut omated message] The = Monocytes #) system which generated this result tra nsmitted reference range : <=0.8. The reference r hugo was not used to int erpret this result as normal/abnormal . [facility] AustinQnvnfsiULVRFOTAYG7561-11-15 15:50:00 Test Item Value Reference Range Interpretation Comments Segs-Bands # (test code = Segs-Bands #) 7.8 1.5-8.1 [facility] AustinMpjefpkFJWJSYCEDQ4056-97-16 15:50:00 Test Item Value Reference Range Interpretation Comments Lymphocytes # (test code = Lymphocytes 1.4 1.0-5.5 #) [facility] AustinUejdvegFAYHZMSRKD4411-06-54 15:50:00 Test Item Value Reference Range Interpretation Comments Monocytes (test code = Monocytes) 7.2 2.0-12.0 [facility] AustinUnsizpgRJZOGPDNHW6327-66-90 15:50:00 Test Item Value Reference Range Interpretation Comments Lymphocytes (test code = Lymphocytes) 14.0 20.0-40.0 [facility] AustinPyvqmpxJKNRMRXRQR2618-73-03 15:50:00 Test Item Value Reference Range Interpretation Comments Segs (test code = Segs) 78.0 45.0-75.0 [facility] AustinElsqwvbHRTROHGFUW3733-16-23 15:50:00 Test Item Value Reference Range Interpretation Comments MPV (test code = MPV) 9.0 7.4-10.4 [facility] AustinMvdsjbxRMRBIULCZB7969-11-30 15:50:00 Test Item Value Reference Range Interpretation Comments Platelet (test code = Platelet) 195 133-450 [facility] AustinTnulbbaJWUIOSZYUN0030-85-10 15:50:00 Test Item Value Reference Range Interpretation Comments RDW (test code = RDW) 13.3 11.5-14.5 [facility] AustinCfqjvyvDOLWQKVQQK7191-86-72 15:50:00 Test Item Value Reference Range Interpretation Comments MCH (test code = MCH) 31.4 pg 27.0-31.0 [facility] AustinYsapwtrZPIIVJAVVV0402-98-78 15:50:00 Test Item Value Reference Range Interpretation Comments MCHC (test code = MCHC) 34.0 32.0-36.0 [facility] AustinHmgnrdzJDDVNIDCJM5547-78-05 15:50:00 Test Item Value Reference Range Interpretation Comments MCV (test code = MCV) 92.2 80.0-98.0 [facility] AustinGlsxsriLMNGOITXZS8281-44-29 15:50:00 Test Item Value Reference Range Interpretation Comments Hct (test code = Hct) 36.4 36.0-48.0 [facility] AustinXxogtkqSHKBXFYQUD5551-86-52 15:50:00 Test Item Value Reference Range Interpretation Comments RBC (test code = RBC) 3.95 4.20-5.40 [facility] AustinQtuxataQLIFKQUXPV3882-12-25 15:50:00 Test Item Value Reference Range Interpretation Comments Hgb (test code = Hgb) 12.4 12.0-16.0 [facility] AustinRmjjldwPTKJXRJGJH5771-94-63 15:50:00 Test Item Value Reference Range Interpretation Comments WBC (test code = WBC) 10.0 3.7-10.4 [id number] 15:50:00 Test Item Value Reference Range Interpretation Comments HIV. (test code = Negative *NA*(01/06/17 HIV.) 10:50 AM) [id number] 15:50:00 Test Item Value Reference Range Interpretation Comments Hep Bs Ag (test code Negative *NA*(01/06/17 = Hep Bs Ag) 10:50 AM) [facility]VxikojfGCSHMDWNFH2294-86-77 15:50:00 Test Item Value Reference Range Interpretation Comments Treponemal Scr (test Non Reactive code = Treponemal Scr) *NA*(01/06/17 10:50 AM) [facility] ResourcesYvwumchRLOGJRCDPI5734-23-81 15:50:00 Test Item Value Reference Range Interpretation Comments Rubella IgG (test code = Rubella IgG) 66.9 [facility] HospitalMorlnlkZKFDKVTGJD6971-73-30 15:50:00 Test Item Value Reference Range Interpretation Comments Hep Bs Ag (test code Negative *NA*(01/06/17 = Hep Bs Ag) 10:50 AM) [facility] [employer] [id number] 15:50:00 Test Item Value Reference Range Interpretation Comments Rhig Reqd (test code = See Note 1(01/06/17 Rhig Reqd) 10:50 AM) [facility] [employer] [id number] 15:50:00 Test Item Value Reference Range Interpretation Comments Antibody Scrn (test Negative (01/06/17 code = Antibody Scrn) 10:50 AM) [facility] [employer] [id number] 15:50:00 Test Item Value Reference Range Interpretation Comments ABO/Rh (test code = ABO/Rh) O POS [facility]2017-10-24 15:50:00 Test Item Value Reference Range Interpretation Comments B/C Ratio (test code = B/C Ratio) 11 6-25 [facility]2017-10-24 15:50:00 Test Item Value Reference Range Interpretation Comments Globulin (test code = Globulin) 4.2 2.7-4.2 [facility]2017-10-24 15:50:00 Test Item Value Reference Range Interpretation Comments AGAP (test code = AGAP) 13.5 10.0-20.0 [facility]2017-10-24 15:50:00 Test Item Value Reference Range Interpretation Comments A/G Ratio (test code = A/G Ratio) 0.7 0.7-1.6 [facility]2017-10-24 15:50:00 Test Item Value Reference Range Interpretation Comments eGFR (test code = eGFR) 153 [facility]2017-10-24 15:50:00 Test Item Value Reference Range Interpretation Comments Sodium Lvl (test code = Sodium Lvl) 137 135-145 [facility]2017-10-24 15:50:00 Test Item Value Reference Range Interpretation Comments BUN (test code = BUN) 6 7-22 [facility]2017-10-24 15:50:00 Test Item Value Reference Range Interpretation Comments Glucose Lvl (test code = Glucose Lvl) 87 70-99 [facility]2017-10-24 15:50:00 Test Item Value Reference Range Interpretation Comments Creatinine Lvl (test code = Creatinine 0.57 0.50-1.40 Lvl) [facility]2017-10-24 15:50:00 Test Item Value Reference Range Interpretation Comments Calcium Lvl (test code = Calcium Lvl) 8.8 8.5-10.5 [facility]2017-10-24 15:50:00 Test Item Value Reference Range Interpretation Comments Total Protein (test code = Total 7.1 6.4-8.4 Protein) [facility]
[2022-01-09 20:43] LABS: Urine Blood 1+ (Negative); Urine Glucose Negative (Negative); Urine Protein 1+ (Negative); Urine Specific Gravity >=1.030 (1.005-1.030); Urine pH 6.5 (5.0-7.0)
[2022-01-09 20:53] LABS: Hematocrit 31.8 % (36.0-45.0); Lymphocytes % 22.7 % (15.3-44.8); MCV 84.2 fL (80-100); RBC Red Blood Cell Count 3.77 M/uL (3.86-4.86)
[2022-01-09 20:57] LABS: Protime INR 1.01
[2022-01-09 21:01] LABS: SARS-CoV-2 Antigen Rapid Res Negative (Negative)
[2022-01-09 21:17] LABS: Barbiturates NEGATIVE (NEGATIVE); Benzodiazepines NEGATIVE (NEGATIVE); Cocaine NEGATIVE (NEGATIVE); METHAMPHETAM NEGATIVE (NEGATIVE); Methadone NEGATIVE (NEGATIVE); Opiates NEGATIVE (NEGATIVE); Phencyclidine NEGATIVE (NEGATIVE); THC Cannibis POSITIVE (NEGATIVE)
[2022-01-09 21:29] LABS: ALT/SGPT 15 U/L (12-78); AST/SGOT 14 U/L (15-37); Albumin 2.9 g/dL (3.4-5.0); Alkaline Phosphatase 63 U/L (45-117); BUN Blood Urea Nitrogen 5 mg/dL (7-18); Bicarbonate 23 mmol/L (21-32); Bilirubin Direct 0.1 mg/dL (0-0.2); Bilirubin Total 0.4 mg/dL (0.2-1.0); Glomerular Filtration Rate 126 ml/min (=/>90); Glucose Level 86 mg/dL (74-106); Potassium 3.4 mmol/L (3.5-5.1); Protein, Total 7.2 g/dL (6.4-8.2); Sodium Level 136 mmol/L (136-145)
--- NOTE | 2022-01-09 22:09 | ER ---
Nurse's Notes [facility] Name: Tenzin Jacobs Age: 26 yrs Sex: Female : 1995 Arrival Date: 01/09/2022 Time: 20:07 Bed 18 Private MD: Diagnosis: Mood disorder due to known physiological condition with depressive features Presentation: 01/09 20:07 Chief complaint: EMS states: pt is 13 wk , reporting auditory hallucinations, aa9 chronic alcoholism, denies suicidal ideation. Coronavirus screen: Vaccine status: Patient reports being unvaccinated. Ebola Screen: No symptoms or risks identified at this time. Initial Sepsis Screen: Does the patient meet any 2 criteria? No. Patient's initial sepsis screen is negative. Does the patient have a suspected source of infection? No. Patient's initial sepsis screen is negative. Risk Assessment: Do you want to hurt yourself or someone else? Patient reports no desire to harm self or others. Onset of symptoms was January 09, 2022. 20:07 Method Of Arrival: EMS: [facility] aa9 20:07 Acuity: CORI 3 aa9 Triage Assessment: 20:15 General: Appears uncomfortable, obese, Behavior is cooperative, anxious, crying. Pain: aa9 Denies pain. EENT: No signs and/or symptoms were reported regarding the EENT system. Neuro: Level of Consciousness is awake, alert, obeys commands, Oriented to person, place, time, situation. Neuro: Reports auditory hallucination, pt state "They are being mean to me, the voices telling me I ain't worth it anymore, I just want to get better, i have more kids at home." Pt denies suicidal ideation. . Cardiovascular: Patient's skin is warm and dry. Respiratory: Airway is patent Respiratory effort is even, unlabored. GI: No signs and/or symptoms were reported involving the gastrointestinal system. : No signs and/or symptoms were reported regarding the genitourinary system. Derm: No signs and/or symptoms reported regarding the dermatologic system. 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 - Social history:: Smoking status: Patient/guardian denies using tobacco, Stopped _ months ago 3 Patient uses alcohol, pt states to be a alcoholic . Screenin:18 Abuse screen: Denies threats or abuse. Denies injuries from another. Nutritional aa9 screening: No deficits noted. Tuberculosis screening: No symptoms or risk factors identified. Fall Risk None identified. Assessment: 20:45 General: Appears uncomfortable, Behavior is calm, cooperative, anxious, crying. Pain: aa9 Denies pain. Neuro: Level of Consciousness is awake, alert, obeys commands, Oriented to person, place, time, situation. Neuro: Denies suicidal ideation . Cardiovascular: Patient's skin is warm and dry. Respiratory: Airway is patent Respiratory effort is even, unlabored. GI: No signs and/or symptoms were reported involving the gastrointestinal system. : No signs and/or symptoms were reported regarding the genitourinary system. 21:42 General: Called [facility]- Spoke to Will. He said he will pass on the information and tw5 will be getting back with out facility. . Vital Signs: 20:07 BP 135 / 74; Pulse 75; Resp 18 S; Temp 98.3(O); Pulse Ox 98% on R/A; Weight 113.4 kg aa9 (R); Height 5 ft. 8 in. (172.72 cm) (R); Pain 0/10; 21:00 BP 126 / 79; Pulse 75; Resp 16; Pulse Ox 100% on R/A; aa9 22:00 BP 126 / 69; Pulse 89; Resp 17 S; Pulse Ox 96% on R/A; Pain 0/10; aa9 20:07 Body Mass Index 38.01 (113.40 kg, 172.72 cm) aa9 ED Course: 20:07 Patient arrived in ED. aa9 20:08 Sanna Cope [facility]NP-C [facility]. snw 20:08 Shade Andrade MD is Attending Physician. snw 20:10 Triage completed. aa9 20:18 Bhavna Javier, RN is Primary Nurse. aa9 20:18 Arm band placed on. aa9 20:18 Patient has correct armband on for positive identification. Call light in reach. aa9 20:40 Inserted saline lock: 22 gauge in right antecubital area, using aseptic technique. aa9 Blood collected. 20:44 SARS RAPID Sent. aa9 20:44 Quantitative Hcg Sent. aa9 20:44 Acetaminophen Sent. aa9 20:44 Basic Metabolic Panel Sent. aa9 20:44 CBC with Diff Sent. aa9 20:44 ETOH Level Sent. aa9 20:44 Hepatic Function Sent. aa9 20:44 PT-INR Sent. aa9 20:44 Ptt, Activated Sent. aa9 20:44 Salicylate Sent. aa9 20:44 Urine Drug Screen Sent. aa9 22:31 No provider procedures requiring assistance completed. IV discontinued, intact, aa9 bleeding controlled, No redness/swelling at site. Pressure dressing applied. Administered Medications: No medications were administered Medication: 21:04 VIS not applicable for this client. aa9 Outcome: 22:08 Discharge ordered by . snw 22:32 Discharged to home ambulatory. aa9 22:32 Condition: stable 22:32 Discharge instructions given to patient, Instructed on discharge instructions, follow up and referral plans. Demonstrated understanding of instructions, follow-up care. 22:32 Patient left the ED. aa9 Signatures: Sanna Cope FNP-C DIFFUSION OPERATOR-Csnw Milagros Colbertfany tw5 Bhavna Javier, RN RN aa9 Corrections: (The following items were deleted from the chart) 21:03 21:00 BP 113 / 33; Pulse 73bpm; Resp 16bpm; Spontaneous; Pulse Ox 100% RA; aa9 aa9 21:04 21:03 BP 126 / 79; Pulse 75bpm; Resp 16bpm; Pulse Ox 100% RA; aa9 aa9
--- NOTE | 2022-01-09 22:09 | EDPHYS ---
Physician Documentation [facility] Name: Tenzin Jacobs Age: 26 yrs Sex: Female : 1995 Arrival Date: 01/09/2022 Time: 20:07 Bed 18 Private MD: ED Physician Shade Andrade HPI: 01/09 22:08 This 26 yrs old Black Female presents to ER via EMS with complaints of depression. snw 22:08 The patient presents to the emergency department with depression, over a relationship, snw + . Onset: The symptoms/episode began/occurred gradually. Past psychiatric history: Prior diagnosis: bipolar disorder, Psychiatric medications include: Zyprexa, hydroxyzine. Associated signs and symptoms: Pertinent positives; anxiety, depression. Severity of symptoms: At their worst the symptoms were moderate in the emergency department the symptoms have improved. The patient has experienced similar episodes in the past, multiple times. It is unknown whether or not the patient has recently seen a physician. denies SI, HI. 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 - Social history:: Smoking status: Patient/guardian denies using tobacco, Stopped _ months ago 3 Patient uses alcohol, pt states to be a alcoholic . ROS: 20:23 Constitutional: Negative for fever, chills, and weight loss, Eyes: Negative for injury, snw pain, redness, and discharge, ENT: Negative for injury, pain, and discharge, Neck: Negative for injury, pain, and swelling, Cardiovascular: Negative for chest pain, palpitations, and edema, Respiratory: Negative for shortness of breath, cough, wheezing, and pleuritic chest pain, Abdomen/GI: Negative for abdominal pain, nausea, vomiting, diarrhea, and constipation, Back: Negative for injury and pain, : Negative for injury, bleeding, discharge, and swelling, MS/Extremity: Negative for injury and deformity, Skin: Negative for injury, rash, and discoloration, Neuro: Negative for headache, weakness, numbness, tingling, and seizure. 20:23 Psych: Positive for depression. Exam: 20:17 Constitutional: This is a well developed, well nourished patient who is awake, alert, snw and in no acute distress. Head/Face: Normocephalic, atraumatic. Eyes: Pupils equal round and reactive to light, extra-ocular motions intact. Lids and lashes normal. Conjunctiva and sclera are non-icteric and not injected. Cornea within normal limits. Periorbital areas with no swelling, redness, or edema. ENT: Nares patent. No nasal discharge, no septal abnormalities noted. Tympanic membranes are normal and external auditory canals are clear. Oropharynx with no redness, swelling, or masses, exudates, or evidence of obstruction, uvula midline. Mucous membranes moist. Neck: Trachea midline, no thyromegaly or masses palpated, and no cervical lymphadenopathy. Supple, full range of motion without nuchal rigidity, or vertebral point tenderness. No Meningismus. Chest/axilla: Normal chest wall appearance and motion. Nontender with no deformity. No lesions are appreciated. Cardiovascular: Regular rate and rhythm with a normal S1 and S2. No gallops, murmurs, or rubs. Normal PMI, no JVD. No pulse deficits. Respiratory: Lungs have equal breath sounds bilaterally, clear to auscultation and percussion. No rales, rhonchi or wheezes noted. No increased work of breathing, no retractions or nasal flaring. Abdomen/GI: Soft, non-tender, with normal bowel sounds. No distension or tympany. No guarding or rebound. No evidence of tenderness throughout. Back: No spinal tenderness. No costovertebral tenderness. Full range of motion. Skin: Warm, dry with normal turgor. Normal color with no rashes, no lesions, and no evidence of cellulitis. MS/ Extremity: Pulses equal, no cyanosis. Neurovascular intact. Full, normal range of motion. Neuro: Awake and alert, GCS 15, oriented to person, place, time, and situation. Cranial nerves II-XII grossly intact. Motor strength 5/5 in all extremities. Sensory grossly intact. Cerebellar exam normal. Normal gait. 20:17 Psych: Behavior/mood is pleasant, cooperative, Affect is calm, Patient has no thoughts/intents to harm self or others. Judgement / Insight is normal. "not in a good head space, and I need some help". Vital Signs: 20:07 BP 135 / 74; Pulse 75; Resp 18 S; Temp 98.3(O); Pulse Ox 98% on R/A; Weight 113.4 kg aa9 (R); Height 5 ft. 8 in. (172.72 cm) (R); Pain 0/10; 21:00 BP 126 / 79; Pulse 75; Resp 16; Pulse Ox 100% on R/A; aa9 22:00 BP 126 / 69; Pulse 89; Resp 17 S; Pulse Ox 96% on R/A; Pain 0/10; aa9 20:07 Body Mass Index 38.01 (113.40 kg, 172.72 cm) aa9 MDM: 20:09 Patient medically screened. snw 22:06 Data reviewed: vital signs, nurses notes. Data interpreted: Pulse oximetry: on room air snw is 100 %. Interpretation: normal. Counseling: I had a detailed discussion with the patient and/or guardian regarding: the historical points, exam findings, and any diagnostic results supporting the discharge/admit diagnosis, lab results, the need for outpatient follow up, encouraged pt to call family/friend to stay with her tonight. encouraged safe space and f/u. Special discussion: Based on the history and exam findings, there is no indication for further emergent testing or inpatient evaluation. I discussed with the patient/guardian the need to see the primary care provider for further evaluation of the symptoms. I discussed with the patient/guardian the need to see the psychiatrist for further evaluation of the symptoms. 22:10 ED course: called post medical screening to [facility], they state she does not snw meet criteria and suggest she f/u on an outpatient basis. 01/09 20:16 Order name: Acetaminophen; Complete Time: 21:35 snw 01/09 20:16 Order name: Basic Metabolic Panel; Complete Time: 21:35 snw 01/09 20:16 Order name: CBC with Diff; Complete Time: 21:21 snw 01/09 20:16 Order name: ETOH Level; Complete Time: 21:21 snw 01/09 20:16 Order name: Hepatic Function; Complete Time: 21:35 snw 01/09 20:16 Order name: PT-INR; Complete Time: 21:21 snw 01/09 20:16 Order name: Ptt, Activated; Complete Time: 21:21 snw 01/09 20:16 Order name: Salicylate; Complete Time: 21:21 snw 01/09 20:16 Order name: Urine Drug Screen; Complete Time: 21:21 snw 01/09 20:16 Order name: EKG; Complete Time: 20:17 snw 01/09 20:16 Order name: Quantitative Hcg; Complete Time: 21:35 snw 01/09 20:16 Order name: SARS RAPID; Complete Time: 21:21 snw 01/09 20:43 Order name: Urine Dipstick-Ancillary; Complete Time: 20:46 EDMS 01/09 20:16 Order name: EKG - Nurse/Tech; Complete Time: 20:33 snw 01/09 20:16 Order name: IV Saline Lock; Complete Time: 20:44 snw 01/09 20:16 Order name: Labs collected and sent; Complete Time: 20:44 snw 01/09 20:16 Order name: Suicide Screening ([place]); Complete Time: 20:44 snw 01/09 20:16 Order name: Urine Dipstick-Ancillary (obtain specimen); Complete Time: 20:44 snw EC:30 Rate is 75 beats/min. Rhythm is regular. QRS [place] is Normal. [place] interval is normal. snw Clinical impression: NSR w/ Non-specific ST/T Changes. Administered Medications: No medications were administered Disposition: 01/10 01:12 Co-signature as Attending Physician, Shade Andrade MD. rn Disposition Summary: 01/09/22 22:08 Discharge Ordered Location: Home snw Condition: Stable snw Diagnosis - Mood disorder due to known physiological condition with depressive features snw Followup: snw - With: Emergency Department - When: As needed - Reason: Worsening of condition Followup: snw - With: Private Physician - When: 1 - 2 days - Reason: Recheck today's complaints, Continuance of care, Re-evaluation by your physician Forms: - Medication Reconciliation Form snw - Thank You Letter snw - Antibiotic Education snw - Prescription Opioid Use snw Signatures: Dispatcher [employer] Sanna Plummer FNP-C [employer]-Csnw Shade Andrade MD MD rn Bhavna Javier RN RN aa9
[2022-01-09 23:25] VITALS: TEMP 98.3
[2022-01-09 23:28] VITALS: BP 126/69; O2SAT 96
== END 2022-01-09 22:32 | disposition home or self-care (01) ==
LOC: ER 20:02
DX: F06.31 Mood disorder due to known physiological condition with depressive features (principal); F20.9 Schizophrenia, unspecified; Z79.82 Long term (current) use of aspirin; Z20.822 Contact with and (suspected) exposure to COVID-19
CPT/HCPCS: 36415; 80048; 80076; 80307; 80320; 80329; 81003; 84702; 85025; 85610; 85730; 87811; 99283

== ENCOUNTER 2022-04-11 15:07 | Emergency (ER) | payer OTHER ==
--- OUTSIDE RECORDS SUMMARY | 2022-04-11 15:25 | XMS REPORT | Continuity of Care Document ---
:1995 Author Organization [facility] t Address [address] [place] [address] Care Team Providers Name Role Phone Asked, No Pcp Primary Care Physician Unavailable SENAIT LEE Attending Clinician Unavailable SENAIT LEE Attending Clinician Unavailable Ultrasound, Adc Mfm Attending Clinician Unavailable Lucia Wills MD, [place] Attending Clinician 2, Adc Lab Attending Clinician Unavailable AUTUMN RAMIREZ Attending Clinician Unavailable Doctor Unassigned, [place] Attending Clinician Unavailable Donald BETANCOURT, Ligia Baird Attending Clinician LEONEL FOSTER Attending Clinician Unavailable Laurie Fiore MD Attending Clinician Ed HERNÁNDEZ, Leonel Capellan Attending Clinician Britta Hopper MD Attending Clinician Leonel Foster MD Attending Clinician BEN CASTILLO Attending Clinician Unavailable Ben Lugo Attending Clinician MITALI BARNES Attending Clinician Unavailable Silas MAINTENANCE TEAM LEADER, Mitali Attending Clinician Claire BARDALES, Grace Capellan Attending Clinician CHANELL HOLT Attending Clinician Unavailable Miguel Angel Leon DO Attending Clinician Emily Biswas DO Attending Clinician Susy RN, Linnette M Attending Clinician Unavailable [facility] Attending Clinician Unavailable Heaven Hwang Attending Clinician [phone] AKINHEAVEN ZHAO Attending Clinician Unavailable Anamaria Ann Attending Clinician Yoel HERNÁNDEZ, Yamel Fischer Attending Clinician Eric Pérez Attending Clinician Leonel Ryan Attending Clinician LEONEL MILLER Admitting Clinician Unavailable Leonel Miller MD Admitting Clinician Yamel Diallo MD Admitting Clinician Leonel Ryan Admitting Clinician Payers Payer Name Policy Type Policy Number Effective Date Expiration Date Ivana ruiz [facility] [id number] 2017 00:00:00 PLUS Problems Condition Condition Condition Status Onset Resolution Last Treating Co mments Source Name Details Category Date Date Treatment Clinician Date Constipati Constipati Disease Active U nivers on in on in 1-17 [place] , , [place] un[place] unspecifie 00 Me dical d d Branch trimester trimester Auditory Auditory Disease Active 2021-03 Unive rs hallucinat hallucinat 2-20 it y of ions ions 00:00: [address] Homicidal Homicidal Disease Active 2021-03 Uni vers thoughts thoughts 2-20 ity of 00:00: [address] Obesity in Obesity in Disease Active 2021-03 U nivers , , 0-24 it y of ante[place] [address] [place] [address] Missed Missed Disease Active 2021-03 Univers menses menses 0-24 ity of 00:00: [place] 00 [facility] Disease Active 2021-03 Uni vers examinatio examinatio 0-24 it y of n or test, n [place] test, 00:[place] positive positive 00 Medica l result result [place] Nausea and Nausea and Disease Active 2021-03 U nivers vomiting vomiting 0-24 ity of during during 00:00: [place] 00 [facility] Morbid Morbid Disease Active Univers obesity obesity 7-21 ity of with body with [place] mass index mass index 00 Me dical of of Branch 40.0-49.9 40.0-49.9 Psychosis, Psychosis, Disease Active U nivers unspecifie unspecifie 7-21 it y of d d 00:00: [place] psychosis psychosis 00 [facility] type type [place] Other Other Disease Active Univers general general 5-12 ity of counseling counseling 00:[place] and advice and advice 00 Me dical for [facility] contracept contracept macho macho management management Normal Normal Disease Active Univers labor labor 2-05 ity of 00:00: [place] 00 [facility] 40 weeks 40 weeks Disease Active 2019- Unive rs gestation gestation 2-05 ity of of of 00:00: [place] 00 [facility] Liveborn Liveborn Disease Active 2019-0 Unive rs , of infant, of 2-05 it y of resendez resendez [place] , , 00 Me dical born in born in [facility] hospital by vaginal by vaginal delivery delivery Mood Mood Disease Active 2018-03 Methodi disorder disorder 05-12 00:00: [facility]ospita 00 l Schizophre Schizophre Disease Active 2018-03 M ethodi jaylen jaylen 05-08 00:00: [facility]osp[facility] 00 l Marijuana Marijuana Disease Active 2019 Uni vers use use 8-19 ity of 00:00: [place] 00 [facility] High risk High risk Disease Active 2019- Uni vers , , 8-19 it y of antepartum antepartum 00:[place] [facility] Multiparit Multiparit Disease Active 2019- U nivers y y 8-19 ity of 00:00: [place] 00 [facility] Tobacco Tobacco Disease Active 2019- Univers smoking smoking 8-19 ity of affecting affecting 00:[place] , , 00 Me dical antepartum antepartum Br anch Marijuana Marijuana Disease Active Uni vers use use 8-19 ity of 00:00: [place] 00 Medical Branch BMI BMI Disease Active 2017-03 Univers 29.0-29.9, 29.0-29.9, 2-20 it y of adult adult 00:00: [place] Medical [facility] BMI BMI Disease Active 2017-03 Univers 25.0-25.9, 25.0-25.9, 2-20 it y of adult adult 00:00: [place] 00 Medical Branch Supervisio Supervisio Disease Active 2017-03 U nivers n of high n of high 0-15 ity of risk risk 00:00: [place] 00 [facility] in second in second Bran ch trimester trimester OTHERS OTHERS Diagnosis Active 2017-032017-12-23 Me moria Active 0-04 16:48:00 l 12/17/2017 00:00: Kavin blum [address] Vaginal Vaginal Disease Active Univers bleeding bleeding 3-20 ity of affecting affecting 00:00[place] early early 00 Medical Bran ch LABOR LABOR Diagnosis Active 2016-032017-01-06 Mem oria Active 0-24 12:15:00 l 01/06/2017 00:00: Kavin blum [address] VAGINAL VAGINAL Diagnosis Active 2016-032017-01-15 Memoria DELIVERY DELIVERY 0-24 15:32:00 l Active 00:00: [place] 01/06/2017 00 [facility] Cannabis Cannabis Disease Active Unive rs use use 1-29 ity of disorder, disorder, 00:00[place] moderate, moderate, 00 Medi parish dependence dependence Br anch Cannabis Cannabis Disease Active Unive rs intoxicati intoxicati 1-29 it y of on with on with 00:00: [place] perceptual perceptual 00 Me dical disturbanc disturbanc Br anch e e Substance Substance Disease Active Uni vers induced induced 1- ity of mood mood 00:00: [place] disorder disorder 00 Medica l Branch Substance- Substance- Disease Active U nivers induced induced 1-29 ity of psychotic psychotic 00:00[place] disorder disorder 00 Medica l with with Branch hallucinat hallucinat ions ions Marijuana Marijuana Disease Active Uni vers use, use, 1-20 ity of episodic episodic 00:00: [place] 00 Medical Branch Substance- Substance- Disease Active Overview : Univers induced induced 1-20 Formattin ity o f anxiety anxiety 00:00: g of this [place] disorder disorder 00 note Medica l with onset with onset might be Branch during during different intoxicati intoxicati from the on with on with original. perceptual perceptual Formattin disturbanc disturbanc g of this e e note might be different from the original. Derik Disease Active Met hodi 1-15 st 00:00: Hospita 00 l Exposure Exposure Disease Active Unive rs to STD to STD 1-21 ity of 00:00: [place] 00 Medical Branch Date of Date of Disease Active 2012-03 Univers last last 2-20 ity of menstrual menstrual 00:00[place] period period 00 Medical (LMP) (LMP) Branch unknown unknown Bipolar Bipolar Disease Active 2012-03 Univers disorder disorder 2-03 ity of 00:00: [place] 00 Medical Branch Attention Attention Disease Active 2012-03 Overview: Univers deficit deficit 2-03 Formattin ity o f hyperactiv hyperactiv 00:00: g of this [place] ity ity 00 note Medical disorder disorder might be Bran ch (ADHD) (ADHD) different from the original. ICD10 Diagnosis [place] [employer] Bipolar 1 Bipolar 1 Disease Active 2012-03 Uni vers disorder disorder 2-03 ity of 00:00: [place] 00 Medical Branch Episodic Episodic Disease Active 2012-03 Unive rs mood mood 2-03 ity of disorder disorder 00:00: [place] 00 Medical Branch History of History of Disease Active 2012-03 U nivers psychiatri psychiatri 2-03 it y of c disorder c disorder 00:00: [place] 00 [place] History of History of Disease Active 2012-03 U nivers depression depression 2-03 it y of 00:00: [place] 00 Medical Branch Bipolar Bipolar Problem 2018-07-06 Me moria disorder, disorder, 16:23:35 l unspecifie unspecifie Ari cordero 07/06/2018 [place] Anxiety Anxiety Problem 2018-07-06 Me moria disorder, disorder, 16:23:35 l unspecifie unspecifie Ari cordero 07/06/2018 [place] Schizophre Schizophr Problem 2018-07-06 Memoria jaylen, enia, 16:23:35 l unspecifie unspecifie He rmann d d 07/06/2018 [facility] Illness, Illness, Problem 2017-01-11 Memoria unspecifie unspecifie 01:38:46 l d d [place] 01/11/2017 [facility] Anxiety Anxiety Problem Resolve 2018-07-06 M emoria (finding) (finding) d 16:23:35 l Resolved [place] Problem 07/06/2018 [facility] Chronic Chronic Problem Resolve 2018-07-06 M emoria schizophre schizophre d 16:23:35 l jaylen jaylen [place] (disorder) (disorder) Resolved Problem 07/06/2018 [facility] ILLNESS, ILLNESS, Diagnosis Active 2017-01-06 Memoria UNSPECIFIE UNSPECIFIE 12:15:00 l D D Active [place] [facility] ENCOUNTER ENCOUNTER Diagnosis Active 2017-01-15 Memoria FOR FOR 15:32:00 l FULL-TERM FULL-TERM Herm yasmany UNCOMPLICA UNCOMPLICA SUE DE SUE DE Active [facility] Smoking Smoking Problem 2018-07-06 Me moria (tobacco) (tobacco) 16:23:35 l complicati complicati He gabino sharp , , third third trimester trimester 07/06/2018 [facility] Nicotine Nicotine Problem 2018-07-06 Memoria dependence dependence 16:23:35 l , , [place] cigarettes cigarettes , , uncomplica uncomplica sue sue 07/06/2018 [facility] Other Other Problem 2018-07-06 Memor ia mental mental 16:23:35 l disorders disorders Herm yasmany complicati complicati aron sharp , , third third trimester trimester 07/06/2018 [facility] Patient Patient Problem Resolve 2016-2018-07-06 2018-07-06 Memoria currently currently d 4-10 16:23:35 16:23:35 l 00:00: Kavin blum (finding) (finding) 00 Resolved 06/24/2015 Problem 07/06/2018 [facility] History of Past Illness Condition Condition Condition Status Onset Resolution Last Treating Co mments Source Name Details Category Date Date Treatment Clinician Date Diseases Diseases Problem 2017-2018-07-06 2018-07-06 Memoria of the of the 0-10 16:23:35 16:23:35 l nervous nervous 03:43: [place] system system 35 complicati complicati ng ng , , third third trimester trimester 12/23/2017 07/06/2018 [facility] Problem 2017-2018-07-06 2018-07-06 Memoria palsy palsy 0-04 16:23:35 16:23:35 l 12/17/2017 05:00: Kavin n 00 9 [facility] 35 weeks 35 weeks Problem 2017-032018-07-06 2018-07-06 Memoria gestation gestation 0-04 16:23:35 16:23:35 l of of 05:00: [place] 00 12/17/2017 9 [facility] Allergies, Adverse Reactions, Alerts Allergy Allergy Status Severity Reaction(s) Onset Inactive Treating Comm ents Source Name Type Date Date Clinician NO KNOWN Drug Active Univers ALLERGIE Class it of [facility] Social History Social Habit Start Date Stop Date Quantity Comments Source ASSERTION 2021-11-02 [facility] 00:00:00 [facility] History of Cigarette Smoker Universi ty of tobacco use [facility] Exposure to 2022-03-22 2022-04-01 Not sure [facility] SARS-CoV-2 00:00:00 09:59:00 [facility] (event) [place] Alcohol intake 2022-04-01 2022-04-01 Ex-drinker [facility] 00:00:00 00:00:00 (finding) [facility] Tobacco use and 2022-01-06 2022-01-06 Smokeless tobacco Un iversity of exposure 00:00:00 00:00:00 non-user [facility] Tobacco Comment 2018-06-03 2018-06-03 smokes 3 Universit y of 00:00:00 00:00:00 cigarettes per [facility] day. Branch Social History 2017-12-18 2017-12-18 [facility] thomas 01:18:03 01:18:03 Sex [birth year] [facility] 00:[facility] Smoking Status Start Date Stop Date Source Tobacco smoking [facility] consumption unknown Ex-smoker 2022-01-06 00:00:00 2022-01-06 [facility] 00:00:00 Medical [place] Smokes tobacco daily 2018-11-01 00:00:00 Univers ity of [place] [facility] Medications Ordered Filled Start Stop Current Ordering Indication Dosage Frequency Signature Comments Components Source Medication Medication Date Date Medication? Clinician (SIG) Name Name ferrous 2021-03 Yes [id number] 325mg Take 1 Un maria m sulfate 1-08 tablet by ity of (IRON, 00:00: mouth in [place] FERROUS 00 the Medical SULFATE,) morning Branch 325 mg (65 and 1 mg iron) tablet at tablet noon and 1 tablet in the evening. Take with meals. ascorbic 2021-03 Yes [id number] 500mg Take 1 U nivers acid, 1-08 tablet by ity of vitamin C, 00:00: mouth in [place] as 500 mg 00 the Medical tablet morning. Branch ferrous 2021-03 Yes [id number] 325mg Take 1 Un maria m sulfate 1-08 tablet by ity of (IRON, 00:00: mouth in [place] FERROUS 00 the Medical SULFATE,) morning Branch 325 mg (65 and 1 mg iron) tablet at tablet noon and 1 tablet in the evening. Take with meals. ascorbic 2021-03 Yes [id number] 500mg Take 1 U nivers acid, 1-08 tablet by ity of vitamin C, 00:00: mouth in [place] as 500 mg 00 the Medical tablet morning. Branch ferrous 2021-03 Yes [id number] 325mg Take 1 Un maria m sulfate 1-08 tablet by ity of (IRON, 00:00: mouth in [place] FERROUS 00 the Medical SULFATE,) morning Branch 325 mg (65 and 1 mg iron) tablet at tablet noon and 1 tablet in the evening. Take with meals. ascorbic 2021-03 Yes [id number] 500mg Take 1 U nivers acid, 1-08 tablet by ity of vitamin C, 00:00: mouth in [place] as 500 mg 00 the Medical tablet morning. Branch ferrous 2021-03 Yes [id number] 325mg Take 1 Un maria m sulfate 1-08 tablet by ity of (IRON, 00:00: mouth in [place] FERROUS 00 the Medical SULFATE,) morning Branch 325 mg (65 and 1 mg iron) tablet at tablet noon and 1 tablet in the evening. Take with meals. ascorbic 2021-03 Yes [id number] 500mg Take 1 U nivers acid, 1-08 tablet by ity of vitamin C, 00:00: mouth in [place] as 500 mg 00 the Medical tablet morning. Branch ferrous 2021-03 Yes [id number] 325mg Take 1 Un maria m sulfate 1-08 tablet by ity of (IRON, 00:00: mouth in [place] FERROUS 00 the Medical SULFATE,) morning Branch 325 mg (65 and 1 mg iron) tablet at tablet noon and 1 tablet in the evening. Take with meals. ascorbic 2021-03 Yes [id number] 500mg Take 1 U nivers acid, 1-08 tablet by ity of vitamin C, 00:00: mouth in [place] as 500 mg 00 the Medical tablet morning. Branch ferrous 2021-03 Yes [id number] 325mg Take 1 Un maria m sulfate 1-08 tablet by ity of (IRON, 00:00: mouth in [place] FERROUS 00 the Medical SULFATE,) morning Branch 325 mg (65 and 1 mg iron) tablet at tablet noon and 1 tablet in the evening. Take with meals. ascorbic 2021-03 Yes [id number] 500mg Take 1 U nivers acid, 1-08 tablet by ity of vitamin C, 00:00: mouth in [place] as 500 mg 00 the Medical tablet morning. Branch ferrous 2021-03 Yes [id number] 325mg Take 1 Un maria m sulfate 1-08 tablet by ity of (IRON, 00:00: mouth in [place] FERROUS 00 the Medical SULFATE,) morning Branch 325 mg (65 and 1 mg iron) tablet at tablet noon and 1 tablet in the evening. Take with meals. ascorbic 2021-03 Yes [id number] 500mg Take 1 U nivers acid, 1-08 tablet by ity of vitamin C, 00:00: mouth in [place] as 500 mg 00 the Medical tablet morning. Branch ferrous 2021-03 Yes [id number] 325mg Take 1 Un maria m sulfate 1-08 tablet by ity of (IRON, 00:00: mouth in [place] FERROUS 00 the Medical SULFATE,) morning Branch 325 mg (65 and 1 mg iron) tablet at tablet noon and 1 tablet in the evening. Take with meals. ascorbic 2021-03 Yes [id number] 500mg Take 1 U nivers acid, 1-08 tablet by ity of vitamin C, 00:00: mouth in [place] as 500 mg 00 the Medical tablet morning. Branch VITAFOL-OB+ 2021-03 Yes TAKE 1 Univ ers DHA 0-25 TABLET AND ity of 65-1-250 mg 00:00: 1 [place] combo pack 00 BY MOUTH Medic al EVERY DAY Branch VITAFOL-OB+ 2021-03 Yes TAKE 1 Univ ers DHA 0-25 TABLET AND ity of 65-1-250 mg 00:00: 1 [place] combo pack 00 BY MOUTH Medic al EVERY DAY Branch VITAFOL-OB+ 2021-03 Yes TAKE 1 Univ ers DHA 0-25 TABLET AND ity of 65-1-250 mg 00:00: 1 [place] combo pack 00 BY MOUTH Medic al EVERY DAY Branch VITAFOL-OB+ 2021-03 Yes TAKE 1 Univ ers DHA 0-25 TABLET AND ity of 65-1-250 mg 00:00: 1 [place] combo pack 00 BY MOUTH Medic al EVERY DAY Branch VITAFOL-OB+ 2021-03 Yes TAKE 1 Univ ers DHA 0-25 TABLET AND ity of 65-1-250 mg 00:00: 1 [place] combo pack 00 BY MOUTH Medic al EVERY DAY Branch VITAFOL-+ 2021-03 Yes TAKE 1 Univ ers DHA 0-25 TABLET AND ity of 65-1-250 mg 00:00: 1 [place] combo pack 00 BY MOUTH Medic al EVERY DAY Branch VITAFOL-OB+ 2021-03 Yes TAKE 1 Univ ers DHA 0-25 TABLET AND ity of 65-1-250 mg 00:00: 1 [place] combo pack 00 BY MOUTH Medic al EVERY DAY Branch ARIPIPRAZOL 2021-03 Yes Take by Uni vers E ORAL 0-24 mouth. ity of 10:45: [address] Branch SERTraline 2021-03 Yes 100mg Take 100 Un maria m 100 mg 0-24 mg by ity of tablet 10:45: mouth in [place] [address] the Medical morning. Branch ARIPIPRAZOL 2021-03 Yes Take by Uni vers E ORAL 0-24 mouth. ity of 10:45: [place] [address] Medical Branch SERTraline 2021-03 Yes 100mg Take 100 Un maria m 100 mg 0-24 mg by ity of tablet 10:45: mouth in [place] [address] the Medical morning. Branch ARIPIPRAZOL 2021-03 Yes Take by Uni vers E ORAL 0-24 mouth. ity of 10:45: [place] [address] Medical Branch SERTraline 2021-03 Yes 100mg Take 100 Un maria m 100 mg 0-24 mg by ity of tablet 10:45: mouth in [place] [address] the Medical morning. Branch ARIPIPRAZOL 2021-03 Yes Take by Uni vers E ORAL 0-24 mouth. ity of 10:45: [place] [address] Medical Branch SERTraline 2021-03 Yes 100mg Take 100 Un maria m 100 mg 0-24 mg by ity of tablet 10:45: mouth in [place] [address] the Medical morning. Branch ARIPIPRAZOL 2021-03 Yes Take by Uni vers E ORAL 0-24 mouth. ity of 10:45: [place] [address] Medical Branch SERTraline 2021-03 Yes 100mg Take 100 Un maria m 100 mg 0-24 mg by ity of tablet 10:45: mouth in [place] [address] the Medical morning. Branch ARIPIPRAZOL 2021-03 Yes Take by Uni vers E ORAL 0-24 mouth. ity of 10:45: [place] [address] Medical Branch SERTraline 2021-03 Yes 100mg Take 100 Un maria m 100 mg 0-24 mg by ity of tablet 10:45: mouth in [place] [address] the Medical morning. Branch ARIPIPRAZOL 2021-03 Yes Take by Uni vers E ORAL 0-24 mouth. ity of 10:45: [place] [address] Medical Branch SERTraline 2021-03 Yes 100mg Take 100 Un maria m 100 mg 0-24 mg by ity of tablet 10:45: mouth in [place] [address] the Medical morning. Branch ARIPIPRAZOL 2021-03 Yes Take by Uni vers E ORAL 0-24 mouth. ity of 10:45: [place] [address] Medical Branch SERTraline 2021-03 Yes 100mg Take 100 Un maria m 100 mg 0-24 mg by ity of tablet 10:45: mouth in [place] [address] the Medical morning. Branch ARIPIPRAZOL 2021-03 Yes Take by Uni vers E ORAL 0-24 mouth. ity of 10:45: [place] [address] Medical Branch SERTraline 2021-03 Yes 100mg Take 100 Un maria m 100 mg 0-24 mg by ity of tablet 10:45: mouth in [place] [address] the Medical morning. Branch ARIPIPRAZOL 2021-03 Yes Take by Uni vers E ORAL 0-24 mouth. ity of 10:45: [place] [address] Medical Branch SERTraline 2021-03 Yes 100mg Take 100 Un maria m 100 mg 0-24 mg by ity of tablet 10:45: mouth in [place] 47 the Medical morning. Branch aspirin 2021-03 Yes [id number] 81mg Take 1 Univers mg EC 0-24 tablet by ity of tablet 00:00: mouth in [place] 00 the Medical morning. Branch PNV 2021-03 Yes [id number] 1{capsu Take 1 Univ ers 102-iron-fo 0-24 le} capsule by it y of late-dha 00:00: mouth [place] (VITAFOL FE 00 daily. Medica l PLUS) 90 mg Branch iron- 1 mg-200 mg Cap metoclopram 2021-03 Yes [id number] 10mg Take 1 Univers yue HCl 10 0-24 tablet by ity of mg tablet 00:00: mouth [place] 00 every 6 Medical (six) Branch hours as needed for Nausea and Vomiting (N/V). aspirin 2021-03 Yes [id number] 81mg Take 1 Univers mg EC 0-24 tablet by ity of tablet 00:00: mouth in [place] 00 the Medical morning. Branch PNV 2021-03 Yes [id number] 1{capsu Take 1 Univ ers 102-iron-fo 0-24 le} capsule by it y of late-dha 00:00: mouth [place] (VITAFOL FE 00 daily. Medica l PLUS) 90 mg Branch iron- 1 mg-200 mg Cap metoclopram 2021-03 Yes [id number] 10mg Take 1 Univers yue HCl 10 0-24 tablet by ity of mg tablet 00:00: mouth [place] 00 every 6 Medical (six) Branch hours as needed for Nausea and Vomiting (N/V). aspirin 2021-03 Yes [id number] 81mg Take 1 Univers mg EC 0-24 tablet by ity of tablet 00:00: mouth in [place] 00 the Medical morning. Branch PNV 2021-03 Yes [id number] 1{capsu Take 1 Univ ers 102-iron-fo 0-24 le} capsule by it y of late-dha 00:00: mouth [place] (VITAFOL FE 00 daily. Medica l PLUS) 90 mg Branch iron- 1 mg-200 mg Cap metoclopram 2021-03 Yes [id number] 10mg Take 1 Univers yue HCl 10 0-24 tablet by ity of mg tablet 00:00: mouth [place] 00 every 6 Medical (six) Branch hours as needed for Nausea and Vomiting (N/V). aspirin 2021-03 Yes [id number] 81mg Take 1 Univers mg EC 0-24 tablet by ity of tablet 00:00: mouth in [place] 00 the Medical morning. Branch PNV 2021-03 Yes [id number] 1{capsu Take 1 Univ ers 102-iron-fo 0-24 le} capsule by it y of late-dha 00:00: mouth [place] (VITAFOL FE 00 daily. Medica l PLUS) 90 mg Branch iron- 1 mg-200 mg Cap metoclopram 2021-03 Yes [id number] 10mg Take 1 Univers yue HCl 10 0-24 tablet by ity of mg tablet 00:00: mouth [place] 00 every 6 Medical (six) Branch hours as needed for Nausea and Vomiting (N/V). aspirin 2021-03 Yes [id number] 81mg Take 1 Univers mg EC 0-24 tablet by ity of tablet 00:00: mouth in [place] 00 the Medical morning. Branch PNV 2021-03 Yes [id number] 1{capsu Take 1 Univ ers 102-iron-fo 0-24 le} capsule by it y of late-dha 00:00: mouth [place] (VITAFOL FE 00 daily. Medica l PLUS) 90 mg Branch iron- 1 mg-200 mg Cap metoclopram 2021-03 Yes [id number] 10mg Take 1 Univers yue HCl 10 0-24 tablet by ity of mg tablet 00:00: mouth [place] 00 every 6 Medical (six) Branch hours as needed for Nausea and Vomiting (N/V). aspirin 2021-03 Yes [id number] 81mg Take 1 Univers mg EC 0-24 tablet by ity of tablet 00:00: mouth in [place] 00 the Medical morning. Branch PNV 2021-03 Yes [id number] 1{capsu Take 1 Univ ers 102-iron-fo 0-24 le} capsule by it y of late-dha 00:00: mouth [place] (VITAFOL FE 00 daily. Medica l PLUS) 90 mg Branch iron- 1 mg-200 mg Cap metoclopram 2021-03 Yes [id number] 10mg Take 1 Univers yue HCl 10 0-24 tablet by ity of mg tablet 00:00: mouth [place] 00 every 6 Medical (six) Branch hours as needed for Nausea and Vomiting (N/V). aspirin 2021-03 Yes [id number] 81mg Take 1 Univers mg EC 0-24 tablet by ity of tablet 00:00: mouth in [place] 00 the Medical morning. Branch PNV 2021-03 Yes [id number] 1{capsu Take 1 Univ ers 102-iron-fo 0-24 le} capsule by it y of late-dha 00:00: mouth [place] (VITAFOL FE 00 daily. Medica l PLUS) 90 mg Branch iron- 1 mg-200 mg Cap metoclopram 2021-03 Yes [id number] 10mg Take 1 Univers yue HCl 10 0-24 tablet by ity of mg tablet 00:00: mouth [place] 00 every 6 Medical (six) Branch hours as needed for Nausea and Vomiting (N/V). aspirin 2021-03 Yes [id number] 81mg Take 1 Univers mg EC 0-24 tablet by ity of tablet 00:00: mouth in [place] 00 the Medical morning. Branch PNV 2021-03 Yes [id number] 1{capsu Take 1 Univ ers 102-iron-fo 0-24 le} capsule by it y of late-dha 00:00: mouth [place] (VITAFOL FE 00 daily. Medica l PLUS) 90 mg Branch iron- 1 mg-200 mg Cap metoclopram 2021-03 Yes [id number] 10mg Take 1 Univers yue HCl 10 0-24 tablet by ity of mg tablet 00:00: mouth [place] 00 every 6 Medical (six) Branch hours as needed for Nausea and Vomiting (N/V). aspirin 2021-03 Yes [id number] 81mg Take 1 Univers mg EC 0-24 tablet by ity of tablet 00:00: mouth in [place] 00 the Medical morning. Branch PNV 2021-03 Yes [id number] 1{capsu Take 1 Univ ers 102-iron-fo 0-24 le} capsule by it y of late-dha 00:00: mouth [place] (VITAFOL FE 00 daily. Medica l PLUS) 90 mg Branch iron- 1 mg-200 mg Cap metoclopram 2021-03 Yes [id number] 10mg Take 1 Univers yue HCl 10 0-24 tablet by ity of mg tablet 00:00: mouth [place] 00 every 6 Medical (six) Branch hours as needed for Nausea and Vomiting (N/V). aspirin 2021-03 Yes [id number] 81mg Take 1 [facility] mg EC 0-24 tablet by ity of tablet 00:00: mouth in [place] 00 the Medical morning. Branch PNV 2021-03 Yes [id number] 1{capsu Take 1 Univ ers 102-iron-fo 0-24 le} capsule by it y of late-dha 00:00: mouth [place] (VITAFOL FE 00 daily. Medica l PLUS) 90 mg Branch iron- 1 mg-200 mg Cap metoclopram 2021-03 Yes [id number] 10mg Take 1 [facility] yue HCl 10 0-24 tablet by ity of mg tablet 00:00: mouth [place] 00 every 6 Medical (six) Branch hours as needed for Nausea and Vomiting (N/V). BUPROPION No HYDROCHLORI 8-15 DE ER (XL) 00:00: 150 MG TB24 00 BUPROPION 0 No HYDROCHLORI 8-15 DE ER (XL) 00:00: 150 MG TB24 00 TAKE 1 2021-0 No 150 TABLET BY 8-10 MOUTH EVERY 00:00: DAY 00 TAKE BY 2021-0 No 4 MOUTH 8-10 DIRECTED ON 00:00: PACKAGE 00 &lt 0 No 100 8-10 00:00: 00 TAKE 1 2021-0 No 150 TABLET BY 8-10 MOUTH EVERY 00:00: DAY 00 TAKE BY 2021-0 No 4 MOUTH 8-10 DIRECTED ON 00:00: PACKAGE 00 &lt 2021-0 No 100 8-10 00:00: 00 TAKE 1 2021-0 No 2 TABLET BY 7-30 MOUTH 00:00: NIGHTLY 00 TAKE 1 2021-0 No 2 TABLET BY 7-30 MOUTH 00:00: NIGHTLY 00 ARIPIPRAZOL Yes Take by Uni vers E ORAL 7-27 mouth. ity of 01:00: [place] [address] Medical Branch SERTraline Yes 100mg Take 100 [facility] m 100 mg 7-27 mg by ity of tablet 01:00: mouth in [place] the Medical morning. Branch ARIPIPRAZOL Yes Take by Uni vers E ORAL 7-27 mouth. ity of 01:00: [place] [address] Medical Branch SERTraline 2021-0 Yes 100mg Take 100 [facility] 100 mg 7-27 mg by ity of tablet 01:00: mouth in [place] 04 the Medical morning. Branch &lt 2021-0 No 100 7- 00:00: 00 TAKE 1 2021-0 No 150 TABLET BY 7- MOUTH EVERY 00:00: DAY 00 TAKE 1 AND 2021-0 No 100 1/2 TABLETS 7-27 BY MOUTH 00:00: EVERY DAY 00 &lt 2021-0 No 100 7 00:00: 00 TAKE 1 2021-0 No 150 TABLET BY 7 MOUTH EVERY 00:00: DAY 00 TAKE 1 AND 2021-0 No 100 1/2 TABLETS 7- BY MOUTH 00:00: EVERY DAY 00 ARIPIPRAZOL 2021-0 Yes Take by Uni vers E ORAL 7-25 mouth. ity of 15:32: [address] SERTraline Yes 100mg Take 100 [facility] m 100 mg 7-25 mg by ity of tablet 15:32: mouth in [place] [address] the Medical morning. Branch ARIPIPRAZOL Yes Take by Uni vers E ORAL 7-25 mouth. ity of 15:32: [address] SERTraline Yes 100mg Take 100 [facility] m 100 mg 7-25 mg by ity of tablet 15:32: mouth in [place] [address] the Medical morning. Branch thiamine Yes 100mg 100 mg, Unive rs (VITAMIN 7-25 Oral, ity of B1) tablet 14:00: DAILY, [place] 100 mg 00 First dose Medical (after [place] last modificati on) on Thu10/07/21 at 0900, Until Discontinu ed, Routine SERTraline Yes 100mg 100 mg, Uni vers (ZOLOFT) 7-25 Oral, ity of tablet 100 14:00: DAILY, [place] mg 00 First dose Medical (after [place] last modificati on) on Thu10/07/21 at 0900, Until Discontinu ed, Routine foLIC acid Yes 1mg 1 mg, Univer s (FOLATE) 7-25 Oral, ity of tablet 1 mg 14:00: DAILY, [place] 00 First dose Medical (after [place] last modificati on) on Thu10/07/21 at 0900, Until Discontinu ed, Routine ARIPiprazol Yes 2mg 2 mg, Unive rs e (ABILIFY) 7-25 Oral, ity of 1 mg/mL 14:00: DAILY, [place] oral 00 First dose Medical solution 2 (after Branch mg last modificati on) on 10/07/21 at 0900, Until Discontinu ed, Routine diphenhydrA No 25mg 25 mg, Uni vers MINE 10-07 Oral, ity of (BENADRYL) 05:16: 05:23 ONCE, 1 [place] tablet 25 00 :00 dose, On Medica l mg Mon Branch 10/07/21 at 0030, Routine midazolam No 1mg 1 mg, IV Uni vers (VERSED) 10-06 Push, ity of injection 1 22:15: 01:43 ONCE, 1 [place] mg 00 :00 dose, On Medical Sun Branch 10/06/21 at 1715, Routine haloperidol No 5mg 5 mg, Univ ers lactate 10-05 Intramuscu ity o f (HALDOL) 15:30: 11:16 lar, [place] injection 5 00 :14 TIDPRN, Medic al mg Starting Branch on 10/05/21 at 1030, Until 10/06/21 at 0616, Routine, Psychosis phenoL Yes 1{spray 1 [place], Univ ers (SORE 10-05 } Oral, PRN, ity of THROAT 15:24: Starting [place] (PHENOL)) 12 on Sat Medical 1.4 % spray 10/05/21 at Br anch bottle 1 1024, [place] Until Discontinu ed, Routine, Sore throat haloperidol No 5mg 5 mg, Univ ers [...] Fri mg 10/04/21 at 2200, Routine haloperidol 2021- No 5mg 5 mg, [...] dose on 10/05/21 at 1400, Routine ARIPiprazol No 2mg 2 mg, [facility] ers e (ABILIFY) 10-03 Enteral, ity of 1 mg/mL 18:15: 07:17 DAILY, [place] oral 00 :46 First dose Medical solution 2 on [place] Branch mg 10/03/21 at 1315, Until Discontinu ed, Routine lactated 2021- No 1000mL at 125 [facility] ers ringers IV 10-03 mL/hr, ity of [...] No .2ug/kg 0.2-1.5 Univers dine 400 10-03 0724 /h mcg/kg/hr ity o f mcg in [...] Medical [place] Branch 10/03/21 at 0145, Routine
nutrition faculty member approving Restricted medication : LAURIE FIORE [...] Branch 10/03/21 at 0045, STAT propofoL IV No 5ug/kg/ 5-50 Un maria m infusion 10-03 min mcg/kg/min ity of 04:43: 08:22 ?108.9 kg [place] 37 :46 (3.267-32. Medical 67 mL/hr, Branch [...] Medical Wed Branch 10/02/21 at 2300, Routine
nutrition faculty member approving Restricted medication : LAURIE FIORE [...] 1 AND 2021-0 No 100 1/2 TABLETS 7-21 BY MOUTH 00:00: EVERY DAY 00 TAKE 1 2021-0 No 150 TABLET BY 7-21 MOUTH EVERY 00:00: DAY 00 &lt 2021-0 No 100 10-03 00:00: 00 &lt 2021-0 No 4 10-03 00:00: 00 &lt 2021-0 No 100 10-03 00:00: 00 TAKE 1 AND 2021-0 No 100 1/2 TABLETS 7-21 BY MOUTH 00:00: EVERY DAY 00 TAKE 1 2021-0 No 150 TABLET BY 7-21 MOUTH EVERY 00:00: DAY 00 TAKE 1 2021-0 No 2 TABLET BY 7-14 MOUTH 00:00: NIGHTLY 00 &lt 202-0 No 100 7- 00:00: 00 TAKE BY 2021-0 No 4 MOUTH 7-14 DIRECTED ON 00:00: PACKAGE 00 TAKE 1 2021-0 No 2 TABLET 7-14 DAILY. 00:00: 00 TAKE 1 2-0 No 2 TABLET BY 7-14 MOUTH 00:00: NIGHTLY 00 &lt 2021-0 No 100 7-14 00:00: 00 TAKE BY 2021-0 No 4 MOUTH 7-14 DIRECTED ON 00:00: PACKAGE 00 TAKE 1 2021-0 No 2 TABLET 7-14 DAILY. 00:00: 00 &lt 2-0 No 6-22 00:00: 00 &lt 2022-0 No 6-22 00:00: 00 Wellbutrin 2-0 No 1mg XL 150 mg 616 24 hr 00:00: tablet, 00 extended release [...] Wellbutrin 2-0 No 1mg XL 150 mg 616 24 hr 00:00: tablet, 00 extended release Zoloft 100 2021-0 No 1mg mg tablet 616 00:00: 00 Abilify 2 2-0 No 1mg mg tablet 616 00:00: [...] MOUTH EVERY 00:00: DAY 00 HYDROcodone 2-0 2021- No 1{tbl} 1 tablet, Univers -acetaminop [...] Branch per tablet 06/24/21 at 1 tablet 1814, SONI
Re ason for Anti-Infec tive: Documented Infection< br>Documen sue Infection Site: HEENT
D uration of Therapy: 7 days amoxicillin 2021- No [id number] 1{tbl} Take 1 [facility] -clavulanat 06-24 tablet [...] to 7 days. Indication s: acute pain Zoloft 100 2021-0 No 1mg mg tablet [...] No 1mg mg tablet 06-18 00:00: 00 Dose 2022-0 No Unknown 3-14 [...] Zoloft 100 2021-0 No 15mg mg tablet 8- 00:00: 00 Abilify 2 2021-0 No 1mg mg tablet 8- 00:00: 00 Zoloft 100 2021-0 No 15mg mg tablet 10-22 00:00: 00 Abilify 2 2020-0 No 1mg mg tablet 10-22 00:00: 00 predniSONE 2020-0 2020- No 40mg 40 mg, [facility] ers (DELTASONE) 09-12 Oral, ity of tablet 40 03:45: 02:57 ONCE, 1 [place] mg 00 :00 dose, Tue Medical 09/11/20 at Branch 2245, Routine ipratropium 2020- No 3mL 3 mL, [facility] ers -albuteroL 09-12 Inhalation it y of (DUONEB) 03:45: 03:00 , ONCE, 1 [place] as 0.5 mg-3 00 :00 dose, Tue Medica l mg(2.5 mg 09/11/20 at [facility])/3 mL 2245, nebulizer Routine solution 3 mL benzonatate Yes [id number] 100mg Take 1 [facility] 100 mg 6-29 capsule by ity of capsule 00:00: mouth 3 (three) Medical times Branch daily as needed for Cough. albuterol Yes [id number] 2{puff} Inhale 2 Univers 90 6-29 Puffs ity of mcg/actuati 00:00: every 4 [place] on inhaler 00 (four) Medical hours as Branch needed for Wheezing or Shortness of Breath. benzonatate Yes [id number] 100mg Take 1 [facility] 100 mg 6-29 capsule by ity of capsule 00:00: mouth 3 (three) Medical times Branch daily as needed for Cough. albuterol Yes [id number] 2{puff} Inhale 2 [facility] 90 6-29 Puffs ity of mcg/actuati 00:00: every 4 [place] on inhaler 00 (four) Medical hours as Branch needed for Wheezing or Shortness of Breath. methylPREDN 0 Yes [id number] Take by [facility] ISolone 4 6-29 mouth ity of mg tablets 00:00: SEE-INSTRU [place] 00 CTIONS. Medical follow Branch package directions benzonatate 0 Yes [id number] 100mg Take 1 [facility] 100 mg 6-29 capsule by ity of capsule 00:00: mouth 3 (three) Medical times Branch daily as needed for Cough. albuterol 2020-0 Yes [id number] 2{puff} Inhale 2 [facility] 90 6-29 Puffs ity of mcg/actuati 00:00: every 4 [place] on inhaler 00 (four) Medical hours as Branch needed for Wheezing or Shortness of Breath. methylPREDN 2020-0 Yes [id number] Take by [facility] ISolone 4 6-29 mouth ity of mg tablets 00:00: SEE-INSTRU [place] 00 CTIONS. Medical follow Branch package directions benzonatate 2020-0 Yes [id number] 100mg Take 1 [facility] 100 mg 6-29 capsule by ity of capsule 00:00: mouth 3 (three) Medical times Branch daily as needed for Cough. albuterol 2020-0 Yes [id number] 2{puff} Inhale 2 [facility] 90 6-29 Puffs ity of mcg/actuati 00:00: every 4 [place] on inhaler 00 (four) Medical hours as Branch needed for Wheezing or Shortness of Breath. methylPREDN 2020-0 Yes [id number] Take by [facility] ISolone 4 6-29 mouth ity of mg tablets 00:00: SEE-INSTRU [place] 00 CTIONS. Medical follow Branch package directions benzonatate 2020-0 Yes [id number] 100mg Take 1 [facility] 100 mg 6-29 capsule by ity of capsule 00:00: mouth 3 (three) Medical times Branch daily as needed for Cough. albuterol 2020-0 Yes [id number] 2{puff} Inhale 2 [facility] 90 6-29 Puffs ity of mcg/actuati 00:00: every 4 [place] on inhaler 00 (four) Medical hours as Branch needed for Wheezing or Shortness of Breath. methylPREDN 2020-0 Yes [id number] Take by [facility] ISolone 4 6-29 mouth ity of mg tablets 00:00: SEE-INSTRU [place] 00 CTIONS. Medical follow Branch package directions benzonatate 2020-0 Yes [id number] 100mg Take 1 [facility] 100 mg 6-29 capsule by ity of capsule 00:00: mouth 3 (three) Medical times Branch daily as needed for Cough. albuterol 2020-0 Yes [id number] 2{puff} Inhale 2 [facility] 90 6-29 Puffs ity of mcg/actuati 00:00: every 4 [place] on inhaler 00 (four) Medical hours as Branch needed for Wheezing or Shortness of Breath. methylPREDN 2020-0 Yes [id number] Take by [facility] ISolone 4 6-29 mouth ity of mg tablets 00:00: SEE-INSTRU [place] 00 CTIONS. Medical follow Branch package directions benzonatate 2020-0 Yes [id number] 100mg Take 1 [facility] 100 mg 6-29 capsule by ity of capsule 00:00: mouth 3 (three) Medical times Branch daily as needed for Cough. albuterol 2020-0 Yes [id number] 2{puff} Inhale 2 Univers 90 6-29 Puffs ity of mcg/actuati 00:00: every 4 [place] on inhaler 00 (four) Medical hours as Branch needed for Wheezing or Shortness of Breath. methylPREDN 2020-0 Yes [id number] Take by Univers ISolone 4 6-29 mouth ity of mg tablets 00:00: SEE-INSTRU [place] 00 CTIONS. Medical follow Branch package directions benzonatate 2020-0 Yes [id number] 100mg Take 1 [facility] 100 mg 6-29 capsule by ity of capsule 00:00: mouth 3 (three) Medical times Branch daily as needed for Cough. albuterol 2020-0 Yes [id number] 2{puff} Inhale 2 Univers 90 6-29 Puffs ity of mcg/actuati 00:00: every 4 [place] on inhaler 00 (four) Medical hours as Branch needed for Wheezing or Shortness of Breath. methylPREDN 2020-0 Yes [id number] Take by Univers ISolone 4 6-29 mouth ity of mg tablets 00:00: SEE-INSTRU [place] 00 CTIONS. Medical follow Branch package directions benzonatate 2020-0 Yes [id number] 100mg Take 1 [facility] 100 mg 6-29 capsule by ity of capsule 00:00: mouth 3 (three) Medical times Branch daily as needed for Cough. albuterol 2020-0 Yes [id number] 2{puff} Inhale 2 Univers 90 6-29 Puffs ity of mcg/actuati 00:00: every 4 [place] on inhaler 00 (four) Medical hours as Branch needed for Wheezing or Shortness of Breath. benzonatate 2020-0 Yes [id number] 100mg Take 1 [facility] 100 mg 6-29 capsule by ity of capsule 00:00: mouth 3 (three) Medical times Branch daily as needed for Cough. albuterol 2020-0 Yes [id number] 2{puff} Inhale 2 [facility] 90 6-29 Puffs ity of mcg/actuati 00:00: every 4 [place] on inhaler 00 (four) Medical hours as Branch needed for Wheezing or Shortness of Breath. benzonatate 2020-0 Yes [id number] 100mg Take 1 [facility] 100 mg 6-29 capsule by ity of capsule 00:00: mouth 3 (three) Medical times Branch daily as needed for Cough. albuterol 2020-0 Yes [id number] 2{puff} Inhale 2 [facility] 90 6-29 Puffs ity of mcg/actuati 00:00: every 4 [place] on inhaler 00 (four) Medical hours as Branch needed for Wheezing or Shortness of Breath. benzonatate 2020-0 Yes [id number] 100mg Take 1 [facility] 100 mg 6-29 capsule by ity of capsule 00:00: mouth 3 (three) Medical times Branch daily as needed for Cough. albuterol 2020-0 Yes [id number] 2{puff} Inhale 2 Univers 90 6-29 Puffs ity of mcg/actuati 00:00: every 4 [place] on inhaler 00 (four) Medical hours as Branch needed for Wheezing or Shortness of Breath. benzonatate 2020-0 Yes [id number] 100mg Take 1 [facility] 100 mg 6-29 capsule by ity of capsule 00:00: mouth 3 (three) Medical times Branch daily as needed for Cough. albuterol 2020-0 Yes [id number] 2{puff} Inhale 2 Univers 90 6-29 Puffs ity of mcg/actuati 00:00: every 4 [place] on inhaler 00 (four) Medical hours as Branch needed for Wheezing or Shortness of Breath. benzonatate 2020-0 Yes [id number] 100mg Take 1 [facility] 100 mg 6-29 capsule by ity of capsule 00:00: mouth 3 (three) Medical times Branch daily as needed for Cough. albuterol 0 Yes [id number] 2{puff} Inhale 2 Univers 90 6-29 Puffs ity of mcg/actuati 00:00: every 4 [place] on inhaler 00 (four) Medical hours as Branch needed for Wheezing or Shortness of Breath. benzonatate 0 Yes [id number] 100mg Take 1 [facility] 100 mg 6-29 capsule by ity of capsule 00:00: mouth 3 (three) Medical times Branch daily as needed for Cough. albuterol 0 Yes [id number] 2{puff} Inhale 2 Univers 90 6-29 Puffs ity of mcg/actuati 00:00: every 4 [place] on inhaler 00 (four) Medical hours as Branch needed for Wheezing or Shortness of Breath. benzonatate 0 Yes [id number] 100mg Take 1 [facility] 100 mg 6-29 capsule by ity of capsule 00:00: mouth 3 (three) Medical times Branch daily as needed for Cough. albuterol 0 Yes [id number] 2{puff} Inhale 2 Univers 90 6-29 Puffs ity of mcg/actuati 00:00: every 4 [place] on inhaler 00 (four) Medical hours as Branch needed for Wheezing or Shortness of Breath. benzonatate 0 Yes [id number] 100mg Take 1 [facility] 100 mg 6-29 capsule by ity of capsule 00:00: mouth 3 (three) Medical times Branch daily as needed for Cough. albuterol 0 Yes [id number] 2{puff} Inhale 2 Univers 90 6-29 Puffs ity of mcg/actuati 00:00: every 4 [place] on inhaler 00 (four) Medical hours as Branch needed for Wheezing or Shortness of Breath. methylPREDN 2020-0 2021- No [id number] Take by Univers ISolone 4 6-29 10-24 mouth ity of mg tablets 00:00: 00:00 SEE-INSTRU [place] 00 :00 CTIONS. Medical follow Branch package directions Zoloft 100 2020-0 No 1mg mg tablet 08-15 00:00: 00 Abilify 2 2020-0 No 1mg mg tablet 08-15 00:00: 00 Zoloft 100 2021-0 No 1mg mg tablet 6- 00:00: 00 Abilify 2 2021-0 No 1mg mg tablet 6- 00:00: 00 Zoloft 100 2021-0 No 1mg mg tablet 5-05 00:00: 00 Abilify 2 2021-0 No 1mg mg tablet 5-05 00:00: 00 Zoloft 100 2021-0 No 1mg mg tablet 5-05 00:00: 00 Abilify 2 2021-0 No 1mg [...] risperidone 2021-0 No 1mg 1 mg tablet 1-27 00:00: 00 risperidone 2021-0 No 1mg 1 mg tablet 1-27 00:00: 00 risperidone 2021-0 No 1mg 1 mg tablet 1- 00:00: 00 risperidone 2021-0 No 1mg 1 mg tablet 1- 00:00: 00 risperidone 2020-1 No 1mg 1 mg tablet 2- 00:00: 00 Zoloft 100 2020-1 No 1mg mg tablet 2- 00:00: 00 risperidone 2020-1 No 1mg 1 mg tablet 2- 00:00: 00 Zoloft 100 2020-1 No 1mg mg tablet 2- 00:00: 00 predniSONE 2020-1 2020- No [id number] 50mg Take 5 Univers 10 mg 0-20 10-26 tablets by ity of tablet 00:00: 04:59 mouth [place] 00 :00 daily for Medical 5 days. Branch predniSONE 2019-2019- No [id number] 50mg Take 5 Univers 10 mg 0-20 10-26 tablets by ity of tablet 00:00: 04:59 mouth [place] 00 :00 daily for Medical 5 days. Branch risperidone 2019-1 No 1mg 1 mg tablet 0-16 00:00: 00 Zoloft 50 2019-1 No 1mg mg tablet 0-16 00:00: 00 risperidone 2020-1 No 1mg 1 mg tablet 016 00:00: 00 Zoloft 50 2019-1 No 1mg mg tablet 0 00:00: 00 risperidone 2020-0 No 1mg 1 mg tablet 11-10 00:00: 00 Zoloft 50 2020-0 No 1mg mg tablet 11-10 00:00: 00 risperidone 2020-0 No 1mg 1 mg tablet 11-10 00:00: 00 Zoloft 50 2020-0 No 1mg mg tablet 11-10 00:00: 00 medroxyPROG 2019-0 2020- No 150mg Univ ers ESTERone 08-11-05 ity of (DEPO-PROVE 16:00: 16:59 [place] RA) 00 :00 Medical injection Branch 150 mg medroxyPROG 2019-2020- No 150mg 150 mg, U nivers ESTERone 08-11 02-05 Intramuscu ity of (DEPO-PROVE 16:00: 16:59 lar, [place] RA) 00 :00 [id number], Medical injection 3 doses, Branch 150 mg First dose on Thu08/12/19 at 1100, Last dose on Thu01/27/20 at 1100, Routine medroxyPROG 2019-2020- No 150mg Univ ers ESTERone 08-11 02-05 ity of (DEPO-PROVE 16:00: 16:59 [place] RA) 00 :00 Medical injection Branch 150 mg medroxyPROG 2019-0 2020- No 150mg Univ ers ESTERone 08-11-05 ity of (DEPO-PROVE 16:00: 16:59 [place] RA) 00 :00 Medical injection Branch 150 mg medroxyPROG 2019-0 2019- No 150mg 150 mg, U nivers [...] 2-06 Oral, ity of (TYLENOL) 02:34: Q6HPRN, [place] tablet 650 05 Starting Medic al mg Thu04/20/19 Branch at 2033, Until Discontinu ed, Routine, Pain (scale 1-3) diphenhydrA 2020-0 Yes 25mg 25 mg, Univ ers MINE 2-06 Oral, ity of (BENADRYL) 02:34: Q6HPRN, [place] tablet 25 05 Starting Medica l mg 04/20/19 Branch at 2033, Until Discontinu ed, Routine, Sleep, Itching ondansetron 2020-0 Yes 4mg 4 mg, Slow Univers (ZOFRAN 2-06 IV Push, ity of (PF)) 02:34: Q8HPRN, [place] injection 4 05 Starting Medi parish mg 04/20/19 Branch at 2033, Until Discontinu ed, Routine, Nausea and Vomiting (N/V) simethicone 2020-0 Yes 160mg 160 mg, Un maria m (GAS RELIEF 2-06 Oral, ity of (SIMETHICON 02:34: PC+HSPRN, [place] E)) 05 Starting Medical chewable 04/20/19 Branc h tablet 160 at 2033, mg Until Discontinu ed, Routine, Gas docusate 2020-0 Yes 240mg 240 mg, Unive rs calcium 2-06 Oral, ity of (SURFAK) 02:34: QDAILYPRN, [place] capsule 240 05 Starting Medi [place] mg 04/20/19 Branch at 2033, Until Discontinu ed, [...] spray Until Discontinu ed, Routine, Perineum discomfort docusate 2020-0 Yes [id number] 240mg Take 1 U nivers calcium 240 2-06 capsule by it y of mg capsule 00:00: mouth once [place] 00 daily as Medical needed for Branch Constipati on. 2020-0 Yes [id number] 1{tbl} Take 1 [facility] vitamin 2-06 tablet by ity of w/FA tablet 00:00: mouth [place] 00 daily. Medical Branch docusate 2020-0 Yes [id number] 240mg Take 1 U nivers calcium 240 2-06 capsule by it y of mg capsule 00:00: mouth once [place] 00 daily as Medical needed for Branch Constipati on. ferrous 2020-0 Yes [id number] 325mg Take 1 [facility] m sulfate 325 2-06 tablet by ity of mg (65 mg 00:00: mouth 2 [place] iron) 00 (two) Medical tablet times Branch daily. ibuprofen 2020-0 Yes [id number] 600mg Take 1 [facility] 600 mg 2-06 tablet by ity of tablet 00:00: mouth [place] 00 every 6 Medical (six) Branch hours as needed for Pain (scale 1-3) or Pain (scale 4-6) (Pain). Take with food or milk. 2020-0 Yes [id number] 1{tbl} Take 1 [facility] vitamin 2-06 tablet by ity of w/FA tablet 00:00: mouth [place] 00 daily. Medical Branch docusate 2020-0 Yes [id number] 240mg Take 1 U nivers calcium 240 2-06 capsule by it y of mg capsule 00:00: mouth once [place] 00 daily as Medical needed for Branch Constipati on. ferrous 2020-0 Yes [id number] 325mg Take 1 [facility] sulfate 325 2-06 tablet by ity of mg (65 mg 00:00: mouth 2 [place] iron) 00 (two) Medical tablet times Branch daily. ibuprofen 2020-0 Yes [id number] 600mg Take 1 [facility] 600 mg 2-06 tablet by ity of tablet 00:00: mouth [place] 00 every 6 Medical (six) Branch hours as needed for Pain (scale 1-3) or Pain (scale 4-6) (Pain). Take with food or milk. 2020-0 Yes [id number] 1{tbl} Take 1 [facility] vitamin 2-06 tablet by ity of w/FA tablet 00:00: mouth [place] 00 daily. Medical Branch docusate 2020-0 Yes [id number] 240mg Take 1 U nivers calcium 240 2-06 capsule by it y of mg capsule 00:00: mouth once [place] 00 daily as Medical needed for Branch Constipati on. ferrous 2020-0 Yes [id number] 325mg Take 1 [facility] sulfate 325 2-06 tablet by ity of mg (65 mg 00:00: mouth 2 [place] iron) 00 (two) Medical tablet times Branch daily. ibuprofen 2020-0 Yes [id number] 600mg Take 1 [facility] 600 mg 2-06 tablet by ity of tablet 00:00: mouth [place] 00 every 6 Medical (six) Branch hours as needed for Pain (scale 1-3) or Pain (scale 4-6) (Pain). Take with food or milk. 2020-0 Yes [id number] 1{tbl} Take 1 [facility] vitamin 2-06 tablet by ity of w/FA tablet 00:00: mouth [place] 00 daily. Medical Branch docusate 2020-0 Yes [id number] 240mg Take 1 U nivers calcium 240 2-06 capsule by it y of mg capsule 00:00: mouth once [place] 00 daily as Medical needed for Branch Constipati on. ferrous 2020-0 Yes [id number] 325mg Take 1 [facility] sulfate 325 2-06 tablet by ity of mg (65 mg 00:00: mouth 2 [place] iron) 00 (two) Medical tablet times Branch daily. ibuprofen 2020-0 Yes [id number] 600mg Take 1 [facility] 600 mg 2-06 tablet by ity of tablet 00:00: mouth [place] 00 every 6 Medical (six) Branch hours as needed for Pain (scale 1-3) or Pain (scale 4-6) (Pain). Take with food or milk. 2020-0 Yes [id number] 1{tbl} Take 1 [facility] vitamin 2-06 tablet by ity of w/FA tablet 00:00: mouth [place] 00 daily. Medical Branch docusate 2020-0 Yes [id number] 240mg Take 1 U nivers calcium 240 2-06 capsule by it y of mg capsule 00:00: mouth once [place] 00 daily as Medical needed for Branch Constipati on. ferrous 2020-0 Yes [id number] 325mg Take 1 [facility] sulfate 325 2-06 tablet by ity of mg (65 mg 00:00: mouth 2 [place] iron) 00 (two) Medical tablet times Branch daily. ibuprofen 2020-0 Yes [id number] 600mg Take 1 [facility] 600 mg 2-06 tablet by ity of tablet 00:00: mouth [place] 00 every 6 Medical (six) Branch hours as needed for Pain (scale 1-3) or Pain (scale 4-6) (Pain). Take with food or milk. 2020-0 Yes [id number] 1{tbl} Take 1 [facility] vitamin 2-06 tablet by ity of w/FA tablet 00:00: mouth [place] 00 daily. Medical Branch docusate 2020-0 Yes [id number] 240mg Take 1 U nivers calcium 240 2-06 capsule by it y of mg capsule 00:00: mouth once [place] 00 daily as Medical needed for Branch Constipati on. ferrous 2020-0 Yes [id number] 325mg Take 1 Un [facility] m sulfate 325 2-06 tablet by ity of mg (65 mg 00:00: mouth 2 [place] iron) 00 (two) Medical tablet times Branch daily. ibuprofen 2020-0 Yes [id number] 600mg Take 1 [facility] 600 mg 2-06 tablet by ity of tablet 00:00: mouth [place] 00 every 6 Medical (six) Branch hours as needed for Pain (scale 1-3) or Pain (scale 4-6) (Pain). Take with food or milk. 2020-0 Yes [id number] 1{tbl} Take 1 [facility] vitamin 2-06 tablet by ity of w/FA tablet 00:00: mouth [place] 00 daily. Medical Branch docusate 2020-0 Yes [id number] 240mg Take 1 U nivers calcium 240 2-06 capsule by it y of mg capsule 00:00: mouth once [place] 00 daily as Medical needed for Branch Constipati on. ferrous 2020-0 Yes [id number] 325mg Take 1 Un [facility] sulfate 325 2-06 tablet by ity of mg (65 mg 00:00: mouth 2 [place] iron) 00 (two) Medical tablet times Branch daily. ibuprofen 2020-0 Yes [id number] 600mg Take 1 [facility] 600 mg 2-06 tablet by ity of tablet 00:00: mouth [place] 00 every 6 Medical (six) Branch hours as needed for Pain (scale 1-3) or Pain (scale 4-6) (Pain). Take with food or milk. 2020-0 Yes [id number] 1{tbl} Take 1 [facility] vitamin 2-06 tablet by ity of w/FA tablet 00:00: mouth [place] 00 daily. Medical Branch docusate 2020-0 Yes [id number] 240mg Take 1 U nivers calcium 240 2-06 capsule by it y of mg capsule 00:00: mouth once [place] 00 daily as Medical needed for Branch Constipati on. ferrous 2020-0 Yes [id number] 325mg Take 1 Un [facility] sulfate 325 2-06 tablet by ity of mg (65 mg 00:00: mouth 2 [place] iron) 00 (two) Medical tablet times Branch daily. ibuprofen 2020-0 Yes [id number] 600mg Take 1 [facility] 600 mg 2-06 tablet by ity of tablet 00:00: mouth [place] 00 every 6 Medical (six) Branch hours as needed for Pain (scale 1-3) or Pain (scale 4-6) (Pain). Take with food or milk. 2020-0 Yes [id number] 1{tbl} Take 1 [facility] vitamin 2-06 tablet by ity of w/FA tablet 00:00: mouth [place] 00 daily. Medical Branch docusate 2020-0 Yes [id number] 240mg Take 1 U nivers calcium 240 2-06 capsule by it y of mg capsule 00:00: mouth [place] 00 daily as Medical needed for Branch Constipati on. ferrous 2020-0 Yes [id number] 325mg Take 1 Un maria m sulfate 325 2-06 tablet by ity of mg (65 mg 00:00: mouth 2 [place] iron) 00 (two) Medical tablet times Branch daily. ibuprofen 2020-0 Yes [id number] 600mg Take 1 [facility] 600 mg 2-06 tablet by ity of tablet 00:00: mouth [place] 00 every 6 Medical (six) Branch hours as needed for Pain (scale 1-3) or Pain (scale 4-6) (Pain). Take with food or milk. 2020-0 Yes [id number] 1{tbl} Take 1 [facility] vitamin 2-06 tablet by ity of w/FA tablet 00:00: mouth [place] 00 daily. Medical Branch docusate 2020-0 Yes [id number] 240mg Take 1 U nivers calcium 240 2-06 capsule by it y of mg capsule 00:00: mouth once [place] 00 daily as Medical needed for Branch Constipati on. ferrous 2020-0 Yes [id number] 325mg Take 1 Un maria m sulfate 325 2-06 tablet by ity of mg (65 mg 00:00: mouth 2 [place] iron) 00 (two) Medical tablet times Branch daily. ibuprofen 2020-0 Yes [id number] 600mg Take 1 [facility] 600 mg 2-06 tablet by ity of tablet 00:00: mouth [place] 00 every 6 Medical (six) Branch hours as needed for Pain (scale 1-3) or Pain (scale 4-6) (Pain). Take with food or milk. 2020-0 Yes [id number] 1{tbl} Take 1 [facility] vitamin 2-06 tablet by ity of w/FA tablet 00:00: mouth [place] 00 daily. Medical Branch docusate 2020-0 Yes [id number] 240mg Take 1 U nivers calcium 240 2-06 capsule by it y of mg capsule 00:00: mouth once [place] 00 daily as Medical needed for Branch Constipati on. ferrous 2020-0 Yes [id number] 325mg Take 1 Un maria m sulfate 325 2-06 tablet by ity of mg (65 mg 00:00: mouth 2 [place] iron) 00 (two) Medical tablet times Branch daily. ibuprofen 2020-0 Yes [id number] 600mg Take 1 [facility] 600 mg 2-06 tablet by ity of tablet 00:00: mouth [place] 00 every 6 Medical (six) Branch hours as needed for Pain (scale 1-3) or Pain (scale 4-6) (Pain). Take with food or milk. 2020-0 Yes [id number] 1{tbl} Take 1 [facility] vitamin 2-06 tablet by ity of w/FA tablet 00:00: mouth [place] 00 daily. Medical Branch docusate 2020-0 Yes [id number] 240mg Take 1 [facility] nivers calcium 240 2-06 capsule by it y of mg capsule 00:00: mouth once [place] 00 daily as Medical needed for Branch Constipati on. ferrous 2020-0 Yes [id number] 325mg Take 1 [facility] mar[facility] m sulfate 325 2-06 tablet by ity of mg (65 mg 00:00: mouth 2 [place] iron) 00 (two) Medical tablet times Branch daily. ibuprofen 2020-0 Yes [id number] 600mg Take 1 [facility] 600 mg 2-06 tablet by ity of tablet 00:00: mouth [place] 00 every 6 Medical (six) Branch hours as needed for Pain (scale 1-3) or Pain (scale 4-6) (Pain). Take with food or milk. 2020-0 Yes [id number] 1{tbl} Take 1 [facility] vitamin 2-06 tablet by ity of w/FA tablet 00:00: mouth [place] 00 daily. Medical Branch docusate 2020-0 Yes [id number] 240mg Take 1 [facility] nivers calcium 240 2-06 capsule by it y of mg capsule 00:00: mouth once [place] 00 daily as Medical needed for Branch Constipati on. ferrous 2020-0 Yes [id number] 325mg Take 1 [facility] mar[facility] m sulfate 325 2-06 tablet by ity of mg (65 mg 00:00: mouth 2 [place] iron) 00 (two) Medical tablet times Branch daily. ibuprofen 2020-0 Yes [id number] 600mg Take 1 [facility] 600 mg 2-06 tablet by ity of tablet 00:00: mouth [place] 00 every 6 Medical (six) Branch hours as needed for Pain (scale 1-3) or Pain (scale 4-6) (Pain). Take with food or milk. 2020-0 Yes [id number] 1{tbl} Take 1 [facility] vitamin 2-06 tablet by ity of w/FA tablet 00:00: mouth [place] 00 daily. Medical Branch docusate 2020-0 Yes [id number] 240mg Take 1 [facility] nivers calcium 240 2-06 capsule by it y of mg capsule 00:00: mouth once [place] 00 daily as Medical needed for Branch Constipati on. ferrous 2020-0 Yes [id number] 325mg Take 1 [facility] mar[facility] m sulfate 325 2-06 tablet by ity of mg (65 mg 00:00: mouth 2 [place] iron) 00 (two) Medical tablet times Branch daily. ibuprofen 2019-0 Yes [id number] 600mg Take 1 [facility] 600 mg 2-06 tablet by ity of tablet 00:00: mouth [place] 00 every 6 Medical (six) Branch hours as needed for Pain (scale 1-3) or Pain (scale 4-6) (Pain). Take with food or milk. 2019-0 Yes [id number] 1{tbl} Take 1 [facility] vitamin 2-06 tablet by ity of w/FA tablet 00:00: mouth [place] 00 daily. Medical Branch docusate 2019-0 Yes [id number] 240mg Take 1 [facility] nivers calcium 240 2-06 capsule by it y of mg capsule 00:00: mouth once [place] 00 daily as Medical needed for Branch Constipati on. ferrous 2020-0 Yes [id number] 325mg Take 1 [facility] mar[facility] m sulfate 325 2-06 tablet by ity of mg (65 mg 00:00: mouth 2 [place] iron) 00 (two) Medical tablet times Branch daily. ibuprofen 2019-0 Yes [id number] 600mg Take 1 [facility] 600 mg 2-06 tablet by ity of tablet 00:00: mouth [place] 00 every 6 Medical (six) Branch hours as needed for Pain (scale 1-3) or Pain (scale 4-6) (Pain). Take with food or milk. 2019-0 Yes [id number] 1{tbl} Take 1 [facility] vitamin 2-06 tablet by ity of w/FA tablet 00:00: mouth [place] 00 daily. Medical Branch docusate 2019-0 Yes [id number] 240mg Take 1 [facility] nivers calcium 240 2-06 capsule by it y of mg capsule 00:00: mouth once [place] 00 daily as Medical needed for Branch Constipati on. ferrous 2020-0 Yes [id number] 325mg Take 1 [facility] maria m sulfate 325 2-06 tablet by ity of mg (65 mg 00:00: mouth 2 [place] iron) 00 (two) Medical tablet times Branch daily. ibuprofen 2020-0 Yes [id number] 600mg Take 1 [facility] 600 mg 2-06 tablet by ity of tablet 00:00: mouth [place] 00 every 6 Medical (six) Branch hours as needed for Pain (scale 1-3) or Pain (scale 4-6) (Pain). Take with food or milk. 2020-0 Yes [id number] 1{tbl} Take 1 [facility] vitamin 2-06 tablet by ity of w/FA tablet 00:00: mouth [place] 00 daily. Medical Branch docusate 2020-0 Yes [id number] 240mg Take 1 [facility] nivers calcium 240 2-06 capsule by it y of mg capsule 00:00: mouth once [place] 00 daily as Medical needed for Branch Constipati on. ferrous 2020-0 Yes [id number] 325mg Take 1 [facility] maria m sulfate 325 2-06 tablet by ity of mg (65 mg 00:00: mouth 2 [place] iron) 00 (two) Medical tablet times Branch daily. ibuprofen 2020-0 Yes [id number] 600mg Take 1 [facility] 600 mg 2-06 tablet by ity of tablet 00:00: mouth [place] 00 every 6 Medical (six) Branch hours as needed for Pain (scale 1-3) or Pain (scale 4-6) (Pain). Take with food or milk. 2020-0 Yes [id number] 1{tbl} Take 1 [facility] vitamin 2-06 tablet by ity of w/FA tablet 00:00: mouth [place] 00 daily. Medical Branch docusate 2020-0 Yes [id number] 240mg Take 1 [facility] nivers calcium 240 2-06 capsule by it y of mg capsule 00:00: mouth once [place] 00 daily as Medical needed for Branch Constipati on. ferrous 2020-0 Yes [id number] 325mg Take 1 [facility] mar[facility] m sulfate 325 2-06 tablet by ity of mg (65 mg 00:00: mouth 2 [place] iron) 00 (two) Medical tablet times Branch daily. 2020-0 Yes [id number] 1{tbl} Take 1 [facility] vitamin 2-06 tablet by ity of w/FA tablet 00:00: mouth [place] 00 daily. Medical Branch docusate 2020-0 Yes [id number] 240mg Take 1 [facility] nivers calcium 240 2-06 capsule by it y of mg capsule 00:00: mouth once [place] 00 daily as Medical needed for Branch Constipati on. ferrous 2020-0 Yes [id number] 325mg Take 1 Un maria m sulfate 325 2-06 tablet by ity of mg (65 mg 00:00: mouth 2 [place] iron) 00 (two) Medical tablet times Branch daily. 2020-0 Yes [id number] 1{tbl} Take 1 [facility] vitamin 2-06 tablet by ity of w/FA tablet 00:00: mouth [place] 00 daily. Medical Branch docusate 2020-0 Yes [id number] 240mg Take 1 [facility] nivers calcium 240 2-06 capsule by it y of mg capsule 00:00: mouth once [place] 00 daily as Medical needed for Branch Constipati on. ferrous 2020-0 Yes [id number] 325mg Take 1 [facility] mar[facility] m sulfate 325 2-06 tablet by ity of mg (65 mg 00:00: mouth 2 [place] iron) 00 (two) Medical tablet times Branch daily. 2020-0 Yes [id number] 1{tbl} Take 1 [facility] vitamin 2-06 tablet by ity of w/FA tablet 00:00: mouth [place] 00 daily. Medical Branch docusate 2020-0 Yes [id number] 240mg Take 1 [facility] nivers calcium 240 2-06 capsule by it y of mg capsule 00:00: mouth once [place] 00 daily as Medical needed for Branch Constipati on. ferrous 2020-0 Yes [id number] 325mg Take 1 Un mar[facility] m sulfate 325 2-06 tablet by ity of mg (65 mg 00:00: mouth 2 [place] iron) 00 (two) Medical tablet times Branch daily. docusate 2020-0 Yes [id number] 240mg Take 1 [facility] nivers calcium 240 2-06 capsule by it y of mg capsule 00:00: mouth once [place] 00 daily as Medical needed for Branch Constipati on. docusate 2020-0 Yes [id number] 240mg Take 1 [facility] nivers calcium 240 2-06 capsule by it y of mg capsule 00:00: mouth once [place] 00 daily as Medical needed for Branch Constipati on. docusate 2019- Yes [id number] 240mg Take 1 [facility] nivers calcium 240 2-06 capsule by it y of mg capsule 00:00: mouth once [place] 00 daily as Medical needed for Branch Constipati on. docusate Yes [id number] 240mg Take 1 [facility] nivers calcium 240 2-06 capsule by it y of mg capsule 00:00: mouth once [place] 00 daily as Medical needed for Branch Constipati on. docusate Yes [id number] 240mg Take 1 [facility] nivers calcium 240 2-06 capsule by it y of mg capsule 00:00: mouth once [place] 00 daily as Medical needed for Branch Constipati on. docusate Yes [id number] 240mg Take 1 [facility] nivers calcium 240 2-06 capsule by it y of mg capsule 00:00: mouth once [place] 00 daily as Medical needed for Branch Constipati on. docusate Yes [id number] 240mg Take 1 [facility] nivers calcium 240 2-06 capsule by it y of mg capsule 00:00: mouth once [place] 00 daily as Medical needed for Branch Constipati on. docusate Yes [id number] 240mg Take 1 [facility] nivers calcium 240 2-06 capsule by it y of mg capsule 00:00: mouth once [place] 00 daily as Medical needed for Branch Constipati on. docusate Yes [id number] 240mg Take 1 [facility] nivers calcium 240 2-06 capsule by it y of mg capsule 00:00: mouth once [place] 00 daily as Medical needed for Branch Constipati on. 2021- No [id number] 1{tbl} Take 1 [facility] vitamin 2-06 10-24 tablet by ity of w/FA tablet 00:00: 00:00 [place] 00 :00 daily. [facility] ferrous 2021- No [id number] 325mg Take 1 U nivers sulfate 325 2-06 10-24 tablet by it y of mg (65 mg 00:00: 00:00 [place] iron[place] 00 :00 (two) Medical tablet times Branch daily. ibuprofen 2021- No [id number] 600mg Take 1 [facility] 600 mg 04-21 [...] No 100ug 100 mcg, [facility] (SUBLIMAZE 04-20 Slow IV ity o f (PF)) 17:21: 02:34 Push, [place] injection 39 :10 Q1HPRN, Medical 100 mcg Starting Branch Thu04/20/19 at 1121, Until Thu04/20/19 at 2033, Routine, contractio n pain without an epidural and SVE < 8 cm and Cat I strip PNV 67-iron Yes [id number] 1{capsu Take 1 [facility] ps-folate 8-19 le} capsule by ity of no.1-dha 00:00: mouth [place] (VITAFOL 00 daily. Medical ULTRA) 29 Branch mg iron- 1 mg-200 mg Cap PNV 67-iron Yes [id number] 1{capsu Take 1 [facility] ps-folate 8-19 le} capsule by ity of no.1-dha 00:00: mouth [place] (VITAFOL 00 daily. Medical ULTRA) 29 Branch mg iron- 1 mg-200 mg Cap PNV 67-iron Yes [id number] 1{capsu Take 1 [facility] ps-folate 8-19 le} capsule by ity of no.1-dha 00:00: mouth [place] (VITAFOL 00 daily. Medical ULTRA) 29 Branch mg iron- 1 mg-200 mg Cap PNV 67-iron Yes [id number] 1{capsu Take 1 [facility] ps-folate 8-19 le} capsule by ity of no.1-dha 00:00: mouth [place] (VITAFOL 00 daily. Medical ULTRA) 29 Branch mg iron- 1 mg-200 mg Cap PNV 67-iron 2019-0 Yes [id number] 1{capsu Take 1 [facility] ps-folate 8-19 le} capsule by ity of no.1-dha 00:00: mouth [place] (VITAFOL 00 daily. Medical ULTRA) 29 Branch mg iron- 1 mg-200 mg Cap PNV 67-iron 2019-0 Yes [id number] 1{capsu Take 1 [facility] ps-folate 8-19 le} capsule by ity of no.1-dha 00:00: mouth [place] (VITAFOL 00 daily. Medical ULTRA) 29 Branch mg iron- 1 mg-200 mg Cap PNV 67-iron 2019-0 Yes [id number] 1{capsu Take 1 [facility] ps-folate 8-19 le} capsule by ity of no.1-dha 00:00: mouth [place] (VITAFOL 00 daily. Medical ULTRA) 29 Branch mg iron- 1 mg-200 mg Cap PNV 67-iron 2019-0 Yes [id number] 1{capsu Take 1 [facility] ps-folate 8-19 le} capsule by ity of no.1-dha 00:00: mouth [place] (VITAFOL 00 daily. Medical ULTRA) 29 Branch mg iron- 1 mg-200 mg Cap PNV 67-iron 2019-0 Yes [id number] 1{capsu Take 1 [facility] ps-folate 8-19 le} capsule by ity of no.1-dha 00:00: mouth [place] (VITAFOL 00 daily. Medical ULTRA) 29 Branch mg iron- 1 mg-200 mg Cap PNV 67-iron 2019-0 Yes [id number] 1{capsu Take 1 [facility] ps-folate 8-19 le} capsule by ity of no.1-dha 00:00: mouth [place] (VITAFOL 00 daily. Medical ULTRA) 29 Branch mg iron- 1 mg-200 mg Cap PNV 67-iron 2019-0 Yes [id number] 1{capsu Take 1 [facility] ps-folate 8-19 le} capsule by ity of no.1-dha 00:00: mouth [place] (VITAFOL 00 daily. Medical ULTRA) 29 Branch mg iron- 1 mg-200 mg Cap PNV 67-iron 2019-0 Yes [id number] 1{capsu Take 1 [facility] ps-folate 8-19 le} capsule by ity of no.1-dha 00:00: mouth [place] (VITAFOL 00 daily. Medical ULTRA) 29 Branch mg iron- 1 mg-200 mg Cap PNV 67-iron 2019-0 Yes [id number] 1{capsu Take 1 [facility] ps-folate 8-19 le} capsule by ity of no.1-dha 00:00: mouth [place] (VITAFOL 00 daily. Medical ULTRA) 29 Branch mg iron- 1 mg-200 mg Cap PNV 67-iron 2019-0 Yes [id number] 1{capsu Take 1 [facility] ps-folate 8-19 le} capsule by ity of no.1-dha 00:00: mouth [place] (VITAFOL 00 daily. Medical ULTRA) 29 Branch mg iron- 1 mg-200 mg Cap PNV 67-iron 2019-0 Yes [id number] 1{capsu Take 1 [facility] ps-folate 8-19 le} capsule by ity of no.1-dha 00:00: mouth [place] (VITAFOL 00 daily. Medical ULTRA) 29 Branch mg iron- 1 mg-200 mg Cap PNV 67-iron 2019-0 Yes [id number] 1{capsu Take 1 [facility] ps-folate 8-19 le} capsule by ity of no.1-dha 00:00: mouth [place] (VITAFOL 00 daily. Medical ULTRA) 29 Branch mg iron- 1 mg-200 mg Cap PNV 67-iron 2019-0 Yes [id number] 1{capsu Take 1 [facility] ps-folate 8-19 le} capsule by ity of no.1-dha 00:00: mouth [place] (VITAFOL 00 daily. Medical ULTRA) 29 Branch mg iron- 1 mg-200 mg Cap PNV 67-iron 2019-0 Yes [id number] 1{capsu Take 1 [facility] ps-folate 8-19 le} capsule by ity of no.1-dha 00:00: mouth [place] (VITAFOL 00 daily. Medical ULTRA) 29 Branch mg iron- 1 mg-200 mg Cap PNV 67-iron 2019-0 Yes [id number] 1{capsu Take 1 [facility] ps-folate 8-19 le} capsule by ity of no.1-dha 00:00: mouth [place] (VITAFOL 00 daily. Medical ULTRA) 29 Branch mg iron- 1 mg-200 mg Cap PNV 67-iron 2019-0 Yes [id number] 1{capsu Take 1 [facility] ps-folate 8-19 le} capsule by ity of no.1-dha 00:00: mouth [place] (VITAFOL 00 daily. Medical ULTRA) 29 Branch mg iron- 1 mg-200 mg Cap PNV 67-iron 2019-0 Yes [id number] 1{capsu Take 1 [facility] ps-folate 8-19 le} capsule by ity of no.1-dha 00:00: mouth [place] (VITAFOL 00 daily. Medical ULTRA) 29 Branch mg iron- 1 mg-200 mg Cap PNV 67-iron 2019-0 Yes [id number] 1{capsu Take 1 [facility] ps-folate 8-19 le} capsule by ity of no.1-dha 00:00: mouth [place] (VITAFOL 00 daily. Medical ULTRA) 29 Branch mg iron- 1 mg-200 mg Cap PNV 67-iron 2019-0 Yes [id number] 1{capsu Take 1 [facility] ps-folate 8-19 le} capsule by ity of no.1-dha 00:00: mouth [place] (VITAFOL 00 daily. Medical ULTRA) 29 Branch mg iron- 1 mg-200 mg Cap PNV 67-iron 2019-0 Yes [id number] 1{capsu Take 1 [facility] ps-folate 8-19 le} capsule by ity of no.1-dha 00:00: mouth [place] (VITAFOL 00 daily. Medical ULTRA) 29 Branch mg iron- 1 mg-200 mg Cap PNV 67-iron 2019-0 Yes [id number] 1{capsu Take 1 [facility] ps-folate 8-19 le} capsule by ity of no.1-dha 00:00: mouth [place] (VITAFOL 00 daily. Medical ULTRA) 29 Branch mg iron- 1 mg-200 mg Cap PNV 67-iron 2019-0 Yes [id number] 1{capsu Take 1 [facility] ps-folate 8-19 le} capsule by ity of no.1-dha 00:00: mouth [place] (VITAFOL 00 daily. Medical ULTRA) 29 Branch mg iron- 1 mg-200 mg Cap PNV 67-iron 2019-0 2021- No [id number] 1{capsu Take 1 [facility] ps-folate 8-19 10-24 le} capsule by ity of no.1-dha 00:00: 00:00 mouth [place] (VITAFOL 00 :00 daily. Medical ULTRA) 29 Branch mg iron- 1 mg-200 mg Cap norgestimat 2018- Yes [id number] 1{tbl} Take 1 [facility] e-ethinyl 2-20 tablet by ity o f estradiol 00:00: mouth [place] (ORTHO 00 daily. [facility] 0.18/0.215/ 0.25 mg-25 mcg tablet norgestimat 2017-03 2019- No [id number] 1{tbl} Take 1 [facility] e-ethinyl 2-20 08-19 tablet by ity of estradiol 00:00: 00:00 mouth [place] [facility] 0.18/0.215/ 0.25 mg-25 mcg tablet Prednisone [...] a 0-25 (Same as: l 14:00: Risperdal) [place]2016-03 No 1 tab, [facility] Multivitami 0-25 Route: PO, l ns oral 14:00: Drug Form: [facility] yasmany tablet 00 TAB, Dosing Weight 77.273, kg, Daily, Start date: 01/07/17 9:00:00 CDT, Duration: 30 day, Stop date: 02/05/17 9:00:00 [place] Risperdal 2016-03 No Notes: [facility] a 0-25 (Same as: l 14:00: Risperdal) [place]2016-03 No 1 tab, [facility] Multivitami 0-25 Route: PO, l ns oral 14:00: Drug Form: [facility] yasmany tablet 00 TAB, Dosing Weight 77.273, kg, Daily, Start date: 01/07/17 9:00:00 CDT, Duration: 30 day, Stop date: 02/05/17 9:00:00 [place] Risperdal 2016-03 No Notes: [facility] a 0-25 (Same as: l 14:00: Risperdal) [place]2016-03 No 1 tab, [facility] Multivitami 0-25 Route: PO, l ns oral 14:00: Drug Form: [facility] yasmany tablet 00 TAB, Dosing Weight 77.273, kg, Daily, Start date: 01/07/17 9:00:00 CDT, Duration: 30 day, Stop date: 02/05/17 9:00:00 [place] Risperdal 2016-03 No Notes: [facility] a 0-25 (Same as: l 14:00: Risperdal) 2016-03 No 1 tab, [facility] Multivitami 0-25 Route: PO, l ns oral 14:00: Drug Form: [place] yasmany tablet 00 TAB, Dosing Weight 77.273, kg, Daily, Start date: 01/07/17 9:00:00 CDT, Duration: 30 day, Stop date: 02/05/17 9:00:00 [place] Risperdal 2016-03 No Notes: [facility] a 0-25 (Same as: l 14:00: Risperdal) 2016-03 No 1 tab, [facility] Multivitami 0-25 Route: PO, l ns oral 14:00: Drug Form: [facility] yasmany tablet 00 TAB, Dosing Weight 77.273, kg, Daily, Start date: 01/07/17 9:00:00 CDT, Duration: 30 day, Stop date: 02/05/17 9:00:00 [place] Risperdal 2016-03 No Notes: [facility] a 0-25 (Same as: l 14:00: Risperdal) 2016-03 No 1 tab, [facility] Multivitami 0-25 Route: PO, l ns oral 14:00: Drug Form: Herm yasmany tablet 00 TAB, Dosing Weight 77.273, kg, Daily, Start date: 01/07/17 9:00:00 CDT, Duration: 30 day, Stop date: 02/05/17 9:00:00 [place] Ativan 2016-03 No Notes: [facility] 0-25 (Same as: l 05:20: Ativan) [place] 2016-03 No Notes: [place] 0-25 (Same as: l 05:20: Ativan) ivan 2016-03 No Notes: [place] 0-25 (Same as: l 05:20: Ativan) ivan 2016-03 No Notes: [place] 0-25 (Same as: l 05:20: Ativan) ivan 2016-03 No Notes: [place] 0-25 (Same as: l 05:20: Ativan) 2016-03 No Notes: [place] 0-25 (Same as: l 05:20: Ativan) [place] 00 ibuprofen 2016-03 No Notes: [facility] a 0-24 (Same as: l 23:00: Motrin) [place] 00 "Do Not Crush" Take with food. [facility] 2016-03 No Notes: [facility] 0-24 (Same as: l 23:00: [facility]) [place] 00 (measles-m umps-rubel la virus vaccine 0.5 [...] [place] "Do Not Crush" Take with food. [facility] 2016-03 No Notes: [facility] 0-24 (Same as: l 23:00: [facility]) [place] 00 (measles-m umps-rubel la virus vaccine 0.5 [...] a 0-24 (Same as: l 23:00: Motrin) [place] 00 "Do Not Crush" Take with food. [facility] 2016-03 No Notes: [facility] 0-24 (Same as: l 23:00: [facility]) [place] 00 (measles-m umps-rubel la virus vaccine 0.5 ml INJ VL) WASTE: F/P - Red; E -Red GIVE PRIOR TO DISCHARGE tetanus/dip 2016-03 No Notes: Dewayne beverly hth/pertuss 0-24 (Tdap ) l is (Tdap) 23:00: For [place] adult/adol 00 Adolecent 5 units-2 and Adult units-15.5 use For IM mcg/0.5 mL Use. Same intramuscul as: Adacel ar (Tdap) suspension ibuprofen 2016-03 No Notes: [facility] a 0-24 (Same as: l 23:00: Motrin) [place] 00 "[facility] Cr[facility]" [facility]: [facility] [place] [facility] (measles-m umps-rubel la virus vaccine 0.5 [...] 00 "Do Not Crush" Take with food. [facility] II 2016-03 No Notes: [facility] 0-24 (Same as: l 23:00: [facility]) [place] 00 (measles-m umps-rubel la virus vaccine 0.5 [...] 00 "Do Not Crush" [facility]: [facility] 0-24 (Same as: l 23:00: M-M-R II) [place] (measles-m umps-rubel la virus vaccine 0.5 [...] Rate: 100 l 1,000 mL 22:15: ml/hr, [place] 00 Infuse over: 10 hr, Route: IV, Dosing Weight 77.273 kg, Total Volume: 1,000, Start date: 01/06/17 17:15:00 CDT, Duration: 30 day, Stop date: 02/05/17 17:14:00 [place] oxytocin 30 2016-03 No 30 unit, Me [...] 0-24 (Same As: l 22:15: Ambien) [place] methylergon 2016-03 No Notes: Dewayne beverly ovine 0-24 (Same l 22:15: as:Metherg [place] 00 ine) ondansetron 2016-03 No Notes: Dewayne beverly 0-24 (Same as: l 22:15: Zofran) [place] 00 MEDICATION WASTE Product Size: 4 mg Product Wasted: ___ mg docusate 2016-03 No Notes: [facility] 0-24 (Same as: l 22:15: Colace) [place] 00 (Do Not Crush) lanolin 2016-03 No Notes: [facility] topical 0-24 (Same l 22:15: as:Lanolin [place] 00 ) bisacodyl 2016-03 No Notes: Memori [...] Duration: 30 day, Stop date: 02/05/17 17:14:00 [place] oxytocin 30 2016-03 No 30 unit, Me [...] [facility] 0-24 (Same As: l 22:15: Ambien) [place] 00 methylergon 2016-03 No Notes: Dewayne beverly ovine 0-24 (Same l 22:15: as:Metherg [place] 00 ine) ondansetron 2016-03 No Notes: Dewayne beverly 0-24 (Same as: l 22:15: Zofran) [place] 00 MEDICATION WASTE Product Size: 4 mg Product Wasted: ___ mg docusate 2016-03 No Notes: [facility] 0-24 (Same as: l 22:15: Colace) [place] 00 (Do Not Crush) lanolin 2016-03 No Notes: [facility] topical 0-24 (Same l 22:15: as:Lanolin [place] 00 ) bisacodyl 2016-03 No Notes: [facility] a 0-24 (Same As: l 22:15: Dulcolax, [place] 00 Correctol) (Do Not Crush) "Do Not Crush" Lactated 2016-03 No 1,000 mL, Dewayne beverly Ringers 0-24 Rate: 100 l 1,000 mL 22:15: ml/hr, [place] 00 Infuse over: 10 hr, Route: IV, Dosing Weight 77.273 kg, Total Volume: 1,000, Start date: 01/06/17 17:15:00 CDT, Duration: 30 day, Stop date: 02/05/17 17:14:00 [place] oxytocin 30 2016-03 No 30 unit, Me [...] ovine 0-24 (Same l 22:15: as:Metherg [place] 00 ine) ondansetron 2016-03 No Notes: Dewayne beverly 0-24 (Same as: l 22:15: Zofran) [place] 00 MEDICATION WASTE Product Size: 4 mg Product Wasted: ___ mg docusate 2016-03 No Notes: [facility] 0-24 (Same as: l 22:15: Colace) [place] 00 (Do Not Crush) lanolin 2016-03 No Notes: [facility] topical 0-24 (Same l 22:15: as:Lanolin [place] 00 ) bisacodyl 2016-03 No Notes: [facility] a 0-24 (Same As: l 22:15: Dulcolax, [place] 00 Correctol) (Do Not Crush) "Do Not Crush" Lactated 2016-03 No 1,000 mL, Dewayne beverly Ringers 0-24 Rate: 100 l 1,000 mL 22:15: ml/hr, [place] 00 Infuse over: 10 hr, Route: IV, Dosing Weight 77.273 kg, Total Volume: 1,000, Start date: 01/06/17 17:15:00 CDT, Duration: 30 day, Stop date: 02/05/17 17:14:00 [place] oxytocin 30 2016-03 No 30 unit, Me [...] ovine 0-24 (Same l 22:15: as:Metherg [place] 00 ine) ondansetron 2016-03 No Notes: Dewayne beverly 0-24 (Same as: l 22:15: Zofran) [place] MEDICATION WASTE Product Size: 4 mg Product Wasted: ___ mg docusate 2016-03 No Notes: [facility] 0-24 (Same as: l 22:15: Colace) [place] 00 (Do Not Crush) lanolin 2016-03 No Notes: [facility] topical 0-24 (Same l 22:15: as:Lanolin [place] 00 ) bisacodyl 2016-03 No Notes: [facility] a 0-24 (Same As: l 22:15: Dulcolax, [place] 00 Correctol) (Do Not Crush) "Do Not Crush" Lactated 2016-03 No 1,000 mL, Dewayne beverly Ringers 0-24 Rate: 100 l 1,000 mL 22:15: ml/hr, [place] 00 Infuse over: 10 hr, Route: IV, Dosing Weight 77.273 kg, Total Volume: 1,000, Start date: 01/06/17 17:15:00 CDT, Duration: 30 day, Stop date: 02/05/17 17:14:00 [place] oxytocin 30 2016-03 No 30 unit, Me [...] beverly ovine 0-24 (Same l 22:15: as:Metherg [place] 00 ine) ondansetron 2016-03 No Notes: Dewayne beverly 0-24 (Same as: l 22:15: Zofran) [place] 00 MEDICATION WASTE Product Size: 4 mg Product Wasted: ___ mg docusate 2016-03 No Notes: [facility] 0-24 (Same as: l 22:15: Colace) [place] 00 (Do Not Crush) lanolin 2016-03 No Notes: [facility] topical 0-24 (Same l 22:15: as:Lanolin [place] 00 ) bisacodyl 2016-03 No Notes: [facility] a 0-24 (Same As: l 22:15: Dulcolax, [place] 00 Correctol) (Do Not Crush) "Do Not Crush" Lactated 2016-03 No 1,000 mL, Dewayne beverly Ringers 0-24 Rate: 100 l 1,000 mL 22:15: ml/hr, [place] 00 Infuse over: 10 hr, Route: IV, Dosing Weight 77.273 kg, Total Volume: 1,000, Start date: 01/06/17 17:15:00 CDT, Duration: 30 day, Stop date: 02/05/17 17:14:00 CRESTER oxytocin 30 2016-03 No 30 unit, Me [...] Memoria 0-24 (Same As: l 22:15: Ambien) [place] 00 methylergon 2016-03 No Notes: Dewayne beverly ovine 0-24 (Same l 22:15: as:Metherg [place] 00 ine) ondansetron 2016-03 No Notes: Dewayne beverly 0-24 (Same as: l 22:15: Zofran) [place] 00 MEDICATION WASTE Product Size: 4 mg Product Wasted: ___ mg docusate 2016-03 No Notes: Memoria 0-24 (Same as: l 22:15: Colace) [place] 00 (Do Not Crush) lanolin 2016-03 No Notes: Memoria topical 0-24 (Same l 22:15: as:Lanolin [place] 00 ) bisacodyl 2016-03 No Notes: Memori a 0-24 (Same As: l 22:15: Dulcolax, [place] 00 Correctol) (Do Not Crush) "Do Not Crush" Benadryl 2016-03 No Notes: Memoria 0-24 (Same as: l 17:49: Benadryl) [place] 00 Benadryl 2016-03 No Notes: Memoria 0-24 (Same as: l 17:49: Benadryl) Benadryl 2016-03 No Notes: Memoria 0-24 (Same as: l 17:49: Benadryl) [place] 00 Benadryl 2016-03 No Notes: Memoria 0-24 (Same as: l 17:49: Benadryl) Benadryl 2016-03 No Notes: Memoria 0-24 (Same as: l 17:49: Benadryl) [place] 00 Benadryl 2016-03 No Notes: Memoria 0-24 (Same as: l 17:49: Benadryl) Benadryl 2016-03 No Notes: Memoria 0-24 (Same as: l 17:25: Benadryl) [place] 00 Benadryl 2016-03 No Notes: Memoria 0-24 (Same as: l 17:25: Benadryl) [place] 00 Benadryl 2016-03 No Notes: Memoria 0-24 (Same as: l 17:25: Benadryl) Benadryl 2016-03 No Notes: Memoria 0-24 (Same as: l 17:25: Benadryl) Benadryl 2016-03 No Notes: Memoria 0-24 (Same as: l 17:25: Benadryl) [place] 00 Benadryl 2016-03 No Notes: Memoria 0-24 [...] Dewayne beverly 0-24 (Same l 15:00: as:Cytotec [place] 00 ) Take with food carboprost 2016-03 No Notes: Memor ia 0-24 (Same As: l 15:00: Hemabate) [place] citric 2016-03 No Notes: Memoria acid-sodium 0-24 [...] beverly ovine 0-24 (Same l 15:00: as:Metherg [place] 00 ine) misoprostol 2016-03 No Notes: Dewayne beverly 0-24 (Same l 15:00: as:Cytotec [place] 00 ) Take with food carboprost 2016-03 [...] Dewayne beverly 0-24 (Same l 15:00: as:Cytotec [place] 00 ) Take with food carboprost 2016-03 No Notes: Memor ia 0-24 (Same As: l 15:00: Hemabate) [place] 00 citric 2016-03 No Notes: Memoria acid-sodium 0-24 (Same As: l citrate 15:00: Bicitra, Kavin n 00 Cytra-2) Sodium citrate-ci tric acid (500-334 mg/5 mL): 1 mL contains sodium 1 mEq/mL and bicarbonat e 1 mEq/mL famotidine 2016-03 No Notes: Memor ia 0-24 (Same as: l 15:00: Pepcid) [place] 00 Can be dilute in 5-10cc NS IVP: Slow IV push over at least 2 minutes. methylergon 2016-03 No Notes: Dewayne beverly ovine 0-24 (Same l 15:00: as:Metherg [place] 00 ine) misoprostol 2016-03 No Notes: Dewayne beverly 0-24 (Same l 15:00: as:Cytotec [place] 00 ) Take with food carboprost 2016-03 [...] beverly ovine 0-24 (Same l 15:00: as:Metherg [place] ine) misoprostol 2016-03 No Notes: Dewayne beverly 0-24 (Same l 15:00: as:Cytotec [place] 00 ) Take with food carboprost 2016-03 [...] beverly ovine 0-24 (Same l 15:00: as:Metherg [place] 00 ine) misoprostol 2016-03 No Notes: Dewayne beverly 0-24 (Same l 15:00: as:Cytotec [place] 00 ) Take with food carboprost 2016-03 No Notes: Memor ia 0-24 (Same As: l 15:00: Hemabate) citric 2016-03 No Notes: Memoria acid-sodium 0-24 (Same As: l citrate 15:00: Bicitra, Kvain n 00 Cytra-2) Sodium citrate-ci tric acid (500-334 mg/5 mL): 1 mL contains sodium 1 mEq/mL and bicarbonat e 1 mEq/mL acetaminoph 2016-03 No Notes: Dewayne beverly en-hydrocod 0-24 (Same as: l one 325 14:34: [place] mg-5 mg 00 325/5) Do oral tablet not exceed 4gm/day of acetaminop hen. ondansetron 2016-03 No Notes: Dewayne beverly 0-24 (Same as: l 14:34: Zofran) MEDICATION WASTE Product Size: 4 mg Product Wasted: ___ mg lidocaine 2016-03 No Notes: Memori a 1% 0-24 (Same as: l 14:34: Xylocaine) terbutaline 2016-03 No Notes: Dewayne beverly 0-24 DO NOT l 14:34: USE IN [employer] (Same As: [place]) butorphanol 2016-03 No Notes: Dewayne beverly 0-24 (Same As: l 14:34: Stadol) MEDICATION WASTE Product Size: 2 mg Product Wasted: ___ mg ibuprofen 2016-03 No Notes: Memori a 0-24 (Same as: l 14:34: Motrin) [place] 00 "Do Not Crush" Take with food. [...] Duration: 30 day, Stop date: 02/05/17 9:33:00 CRE[place] acetaminoph 2016-03 No Notes: Dewayne beverly en-hydrocod 0-24 (Same as: l one 325 14:34: [place] mg-5 mg 00 325/5) Do oral tablet not exceed 4gm/day of acetaminop hen. ondansetron 2016-03 No Notes: Dewayne beverly 0-24 (Same as: l 14:34: Zofran) [place] 00 MEDICATION WASTE Product Size: 4 mg Product Wasted: ___ mg lidocaine 2016-03 No Notes: Memori a 1% 0-24 (Same as: l 14:34: Xylocaine) [place] 00 terbutaline 2016-03 No Notes: Dewayne beverly 0-24 DO NOT l 14:34: USE IN [place] 00 [employer] (Same As: Bre[place]ine) butorphanol 2016-03 No [...] Duration: 30 day, Stop date: 02/05/17 9:33:00 [place] acetaminoph 2016-03 No Notes: Dewayne beverly en-hydrocod 0-24 (Same as: l one 325 14:34: [place] mg-5 mg 00 325/5) Do oral tablet not exceed 4gm/day of acetaminop hen. ondansetron 2016-03 No Notes: Dewayne beverly 0-24 (Same as: l 14:34: Zofran) [place] 00 MEDICATION WASTE Product Size: 4 mg Product Wasted: ___ mg lidocaine 2016-03 No Notes: Memori a 1% 0-24 (Same as: l 14:34: Xylocaine) [place] terbutaline 2016-03 No Notes: Dewayne beverly 0-24 DO NOT l 14:34: USE IN [place] 00 [employer] (Same As: Bre[place]ine) butorphanol 2016-03 No Notes: Dewayne beverly 0-24 (Same As: l 14:34: Stadol) [place] MEDICATION WASTE Product Size: 2 mg Product Wasted: ___ mg ibuprofen 2016-03 No Notes: Memori a 0-24 (Same as: l 14:34: Motrin) [place] "Do Not Crush" Take with food. lidocaine [...] Rate: 125 l 1,000 mL 14:34: ml/hr, [place] 00 Infuse over: 8 hr, Route: IV, Dosing Weight 77.273 kg, Total Volume: 1,000, Start date: 01/06/17 9:34:00 CDT, Duration: 30 day, Stop date: 02/05/17 9:33:00 [place] acetaminoph 2016-03 No Notes: Dewayne beverly en-hydrocod 0-24 (Same as: l one 325 14:34: [place] mg-5 mg 00 325/5) Do oral tablet not exceed 4gm/day of acetaminop hen. ondansetron 2016-03 No Notes: Dewayne beverly 0-24 (Same as: l 14:34: Zofran) [place] 00 MEDICATION WASTE Product Size: 4 mg Product Wasted: ___ mg lidocaine 2016-03 No Notes: Memori a 1% 0-24 (Same as: l 14:34: Xylocaine) [place] 00 terbutaline 2016-03 No Notes: Dewayne beverly 0-24 DO NOT l 14:34: USE IN [place] 00 [employer] (Same As: Bre[place]ine) butorphanol 2016-03 No Notes: Dewayne beverly 0-24 (Same As: l 14:34: Stadol) [place] 00 MEDICATION WASTE Product Size: 2 mg Product Wasted: ___ mg ibuprofen 2016-03 No Notes: Memori a 0-24 (Same as: l 14:34: Motrin) [place] 00 "Do Not Crush" Take with food. [...] Duration: 30 day, Stop date: 02/05/17 9:33:00 [place] acetaminoph 2016-03 No Notes: Dewayne beverly en-hydrocod 0-24 (Same as: l one 325 14:34: [place] mg-5 mg 00 325/5) Do oral tablet not exceed 4gm/day of acetaminop hen. ondansetron 2016-03 No Notes: Dewayne beverly 0-24 (Same as: l 14:34: Zofran) MEDICATION WASTE Product Size: 4 mg Product Wasted: ___ mg lidocaine 2016-03 No Notes: Memori a 1% 0-24 (Same as: l 14:34: Xylocaine) terbutaline 2016-03 No Notes: Dewayne beverly 0-24 DO NOT l 14:34: USE IN [employer] (Same As: [place]) butorphanol 2016-03 No [...] Rate: 125 l 1,000 mL 14:34: ml/hr, [place] 00 Infuse over: 8 hr, Route: IV, Dosing Weight 77.273 kg, Total Volume: 1,000, Start date: 01/06/17 9:34:00 CDT, Duration: 30 day, Stop date: 02/05/17 9:33:00 [place] acetaminoph 2016-03 No Notes: Dewayne beverly en-hydrocod 0-24 (Same as: l one 325 14:34: [place] mg-5 mg 00 325/5) Do oral tablet [...] NOT l 14:34: USE IN [place] 00 [employer] (Same As: [place]) butorphanol 2016-03 No Notes: Dewayne beverly 0-24 (Same As: l 14:34: Stadol) [place] 00 MEDICATION WASTE Product Size: 2 mg Product Wasted: ___ mg ibuprofen 2016-03 No Notes: Memori a 0-24 (Same as: l 14:34: Motrin) [place] 00 "Do Not Crush" Take with food. [...] Duration: 30 day, Stop date: 02/05/17 9:33:00 [place] Immunizations Ordered Filled Immunization Date Status Comments [facility] Immunization Name Name TDAP 2017-12-08 Completed [facility] 00:00:00 [facility] TDAP 2017-12-08 Completed [facility] 00:00:00 [facility] Tdap 2017-12-08 Completed [facility] 00:00:00 [facility] Tdap 2017-12-08 Completed [facility] 00:00:00 [facility] Tdap 2017-12-08 Completed [facility] 00:00:00 [facility] Tdap 2017-12-08 Completed [facility] 00:00:00 [facility] Tdap 2017-12-08 Completed [facility] 00:00:00 [facility] Tdap 2017-12-08 Completed [facility] 00:00:00 [facility] Tdap 2017-12-08 Completed [facility] 00:00:00 [facility] Tdap 2017-12-08 Completed [facility] 00:00:00 [facility] Tdap 2017-12-08 Completed [facility] 00:00:00 [facility] Tdap 2017-12-08 Completed [facility] 00:00:00 [facility] Tdap 2017-12-08 Completed [facility] 00:00:00 [facility] TDAP 2017-12-08 Completed [facility] 00:00:00 [facility] TDAP 2017-12-08 Completed [facility] 00:00:00 [facility] TDAP 2017-12-08 Completed [facility] 00:00:00 [facility] TDAP 2017-12-08 Completed [facility] 00:00:00 [facility] TDAP 2017-12-08 Completed [facility] 00:00:00 [facility] TDAP 2017-12-08 Completed [facility] 00:00:00 [facility] TDAP 2017-12-08 Completed [facility] 00:00:00 [facility] TDAP 2017-12-08 Completed [facility] 00:00:00 [facility] TDAP 2017-12-08 Completed [facility] 00:00:00 [facility] Tdap 2017-12-08 Completed [facility] 00:00:00 [facility] TDAP 2017-12-08 Completed [facility] 00:00:00 [facility] TDAP 2017-12-08 Completed [facility] 00:00:00 [facility] TDAP 2017-12-08 Completed [facility] 00:00:00 [facility] TDAP 2017-12-08 Completed [facility] 00:00:00 [facility] TDAP 2017-12-08 Completed [facility] 00:00:00 [facility] Tdap 2017-12-08 Completed [facility] 00:00:00 [facility] TDAP 2017-12-08 Completed [facility] 00:00:00 [facility] TDAP 2017-12-08 Completed [facility] 00:00:00 [facility] TDAP 2017-12-08 Completed [facility] 00:00:00 [facility] TDAP 2017-12-08 Completed [facility] 00:00:00 [facility] TDAP 2017-12-08 Completed [facility] 00:00:00 [facility] TDAP 2017-12-08 Completed [facility] 00:00:00 [facility] TDAP 2017-12-08 Completed [facility] 00:00:00 [facility] Tdap 2017-12-08 Completed [facility] 00:00:00 [facility] Rubella 2010-10-18 Completed [facility] [...] Branch HPV 2010-07-30 Completed [facility] 00:00:00 [facility] HPV 2010-07-30 Completed [facility] 00:00:00 [facility] HPV 2010-07-30 Completed [facility] 00:00:00 [facility] HPV 2010-07-30 Completed [facility] 00:00:00 [facility] HPV 2010-07-30 Completed [facility] 00:00:00 [facility] HPV 2010-07-30 Completed [facility] 00:00:00 [facility] TDAP 2008-03-16 Completed [facility] 00:00:00 [facility] TDAP 2008-03-16 Completed [facility] 00:00:00 [facility] Tdap 2008-03-16 Completed [facility] 00:00:00 [facility] Tdap 2008-03-16 Completed [facility] 00:00:00 [facility] Tdap 2008-03-16 Completed [facility] 00:00:00 [facility] Tdap 2008-03-16 Completed [facility] 00:00:00 [facility] Tdap 2008-03-16 Completed [facility] 00:00:00 [facility] Tdap 2008-03-16 Completed [facility] 00:00:00 [facility] Tdap 2008-03-16 Completed [facility] 00:00:00 [facility] Tdap 2008-03-16 Completed [facility] 00:00:00 [facility] Tdap 2008-03-16 Completed [facility] 00:00:00 [facility] Tdap 2008-03-16 Completed [facility] 00:00:00 [facility] Tdap 2008-03-16 Completed [facility] 00:00:00 [facility] TDAP 2008-03-16 Completed [facility] 00:00:00 [facility] TDAP 2008-03-16 Completed [facility] 00:00:00 [facility] TDAP 2008-03-16 Completed [facility] 00:00:00 [facility] TDAP 2008-03-16 Completed [facility] 00:00:00 [facility] TDAP 2008-03-16 Completed [facility] 00:00:00 [facility] TDAP 2008-03-16 Completed [facility] 00:00:00 [facility] TDAP 2008-03-16 Completed [facility] 00:00:00 [facility] TDAP 2008-03-16 Completed [facility] 00:00:00 [facility] TDAP 2008-03-16 Completed [facility] 00:00:00 [facility] Tdap 2008-03-16 Completed [facility] 00:00:00 [facility] TDAP 2008-03-16 Completed [facility] 00:00:00 [facility] TDAP 2008-03-16 Completed [facility] 00:00:00 [facility] TDAP 2008-03-16 Completed [facility] 00:00:00 [facility] TDAP 2008-03-16 Completed [facility] 00:00:00 [facility] TDAP 2008-03-16 Completed [facility] 00:00:00 [facility] Tdap 2008-03-16 Completed [facility] 00:00:00 [facility] TDAP 2008-03-16 Completed [facility] 00:00:00 [facility] TDAP 2008-03-16 Completed [facility] 00:00:00 [facility] TDAP 2008-03-16 Completed [facility] 00:00:00 [facility] TDAP 2008-03-16 Completed [facility] 00:00:00 [facility] TDAP 2008-03-16 Completed [facility] 00:00:00 [facility] TDAP 2008-03-16 Completed [facility] 00:00:00 [facility] TDAP 2008-03-16 Completed [facility] 00:00:00 [facility] Tdap 2008-03-16 Completed [facility] 00:00:00 [facility] Vital Signs Vital Name Observation Time Observation Value Comments Source Systolic blood 2022-04-01 16:12:00 117 mm[Hg] Univer sity of pressure [facility] Diastolic blood 2022-04-01 16:12:00 79 mm[Hg] Unive rsity [facility] Heart rate 2022-04-01 16:12:00 91 /min [facility] Body temperature 2022-04-01 16:12:00 36.72 [facility] 2022-04-01 16:12:00 18 /min [facility] height 2022-04-01 16:12:00 172.7 cm [facility] Body weight 2022-04-01 16:12:00 110.224 kg [facility] BMI 2022-04-01 16:12:00 36.95 kg/m2 [facility] Systolic blood 2022-03-04 21:57:00 111 mm[Hg] Univer sity of pressure [facility] Diastolic blood 2022-03-04 21:57:00 71 mm[Hg] Unive rsity of pressure [facility] Heart rate 2022-03-04 21:57:00 103 /min [facility] Body temperature 2022-03-04 21:57:00 36.78 [place] [facility] Respiratory rate 2022-03-04 21:57:00 18 /min Univ ersity [facility] Body height 2022-03-04 21:57:00 172.7 cm [facility] Body weight 2022-03-04 21:57:00 112.946 kg [facility] BMI 2022-03-04 21:57:00 37.86 kg/m2 [facility] Systolic blood 2022-02-04 17:33:00 102 mm[Hg] Univer sity of pressure [facility] Diastolic blood 2022-02-04 17:33:00 63 mm[Hg] Unive rsity of pressure [facility] Heart rate 2022-02-04 17:33:00 82 /min [facility] Body temperature 2022-02-04 17:33:00 36.83 [place] [facility] Respiratory rate 2022-02-04 17:33:00 18 /min Univ ersity [facility] Body height 2022-02-04 17:33:00 172.7 cm [facility] Body weight 2022-02-04 17:33:00 114.306 kg [facility] BMI 2022-02-04 17:33:00 38.32 kg/m2 [facility] Systolic blood 2022-01-06 15:42:00 129 mm[Hg] Univer sity of pressure [facility] Diastolic blood 2022-01-06 15:42:00 81 mm[Hg] Unive rsity of pressure [facility] Heart rate 2022-01-06 15:42:00 77 /min [facility] Body temperature 2022-01-06 15:42:00 36.89 [place] [facility] Respiratory rate 2022-01-06 15:42:00 18 /min Univ ersity [facility] Body height 2022-01-06 15:42:00 172.7 cm [facility] Body weight 2022-01-06 15:42:00 113.853 kg [facility] BMI 2022-01-06 15:42:00 38.16 kg/m2 [facility] Systolic blood 2021-10-07 12:43:00 138 mm[Hg] Univer sity of pressure [facility] Diastolic blood 2021-10-07 12:43:00 80 mm[Hg] Unive rsity of pressure [facility] Heart rate 2021-10-07 12:43:00 65 /min [facility] Body temperature 2021-10-07 12:43:00 36.78 [place] [facility] Respiratory rate 2021-10-07 12:43:00 18 /min Univ ers[facility] Oxygen saturation in 2021-10-07 12:43:00 98 /min [facility] Arterial blood by [facility] Pulse oximetry Branch Body weight 2021-10-06 13:00:00 118 kg [facility] BMI 2021-10-06 13:00:00 47.58 kg/m2 [facility] Body height 2021-10-03 03:30:00 157.5 cm [facility] Systolic blood 2021-07-23 02:28:00 163 mm[Hg] Univer sity of pressure [facility] Diastolic blood 2021-07-23 02:28:00 82 mm[Hg] Unive rsity of pressure [facility] Heart rate 2021-07-23 02:28:00 100 /min [facility] Body temperature 2021-07-23 02:28:00 37.44 [place] [facility] Respiratory rate 2021-07-23 02:28:00 16 /min Univ ers[facility] Body height 2021-07-23 02:28:00 172.7 cm [facility] Body weight 2021-07-23 02:28:00 108.863 kg [facility] BMI 2021-07-23 02:28:00 36.49 kg/m2 [facility] Oxygen saturation in 2021-07-23 02:28:00 98 /min [facility] Systolic blood 2021-06-24 22:27:42 134 mm[Hg] Univer sity of pressure [facility] Diastolic blood 2021-06-24 22:27:42 78 mm[Hg] Unive rsity of pressure [facility] Heart rate 2021-06-24 22:27:42 67 /min [facility] Respiratory rate 2021-06-24 22:27:42 18 /min Univ ers[facility] Oxygen saturation in 2021-06-24 22:27:42 97 /min [facility] Arterial blood by [facility] Pulse oximetry Branch Body temperature 2021-06-24 21:13:00 37.56 [place] [facility] Body height 2021-06-24 21:13:00 172.7 cm [facility] Body weight 2021-06-24 21:13:00 108.863 kg [facility] BMI 2021-06-24 21:13:00 36.49 kg/m2 [facility] Heart rate 2020-09-12 03:00:00 68 /min [facility] Respiratory rate 2020-09-12 03:00:00 18 /min Univ ers[facility] Oxygen saturation in 2020-09-12 03:00:00 97 /min [facility] Arterial blood by [facility] Pulse oximetry Branch Systolic blood 2020-09-12 01:34:00 166 mm[Hg] Univer sity of pressure [facility] Diastolic blood 2020-09-12 01:34:00 96 mm[Hg] Unive rsity of pressure [facility] Body temperature 2020-09-12 01:34:00 37.5 [place] [facility] Body weight 2020-09-12 01:34:00 97.523 kg [facility] BMI 2020-09-12 01:34:00 32.69 kg/m2 [facility] Systolic blood 2020-06-12 16:04:00 133 mm[Hg] Univer sity of pressure [facility] Diastolic blood 2020-06-12 16:04:00 74 mm[Hg] Unive rsity of pressure [facility] Heart rate 2020-06-12 16:04:00 77 /min [facility] Body temperature 2020-06-12 16:04:00 36.61 [place] [facility] Respiratory rate 2020-06-12 16:04:00 14 /min Univ [facility] Body weight 2020-06-12 16:04:00 86.183 kg [facility] BMI 2020-06-12 16:04:00 28.89 kg/m2 [facility] Oxygen saturation in 2020-06-12 16:04:00 97 /min [facility] Arterial blood by [facility] Pulse oximetry Branch Systolic blood 2020-06-12 16:04:00 133 mm[Hg] Univer sity of pressure [facility] Diastolic blood 2020-06-12 16:04:00 74 mm[Hg] Unive rsity of pressure [facility] Heart rate 2020-06-12 16:04:00 77 /min [facility] Body temperature 2020-06-12 16:04:00 36.61 [place] [facility] Respiratory rate 2020-06-12 16:04:00 14 /min Univ [facility] Body weight 2020-06-12 16:04:00 86.183 kg [facility] BMI 2020-06-12 16:04:00 28.89 kg/m2 [facility] Oxygen saturation in 2020-06-12 16:04:00 97 /min [facility] Arterial blood by [facility] Pulse oximetry Branch Systolic blood 2020-01-03 15:11:00 153 mm[Hg] Univer sity of pressure [facility] Diastolic blood 2020-01-03 15:11:00 89 mm[Hg] Unive rsity of pressure [facility] Heart rate 2020-01-03 15:11:00 88 /min [facility] Body temperature 2020-01-03 15:11:00 37.33 [place] [facility] Respiratory rate 2020-01-03 15:11:00 18 /min [facility] Body weight 2020-01-03 15:11:00 86.183 kg [facility] BMI 2020-01-03 15:11:00 28.89 kg/m2 [facility] Oxygen saturation in 2020-01-03 15:11:00 98 /min [facility] Arterial blood by [facility] Pulse oximetry Branch Systolic blood 2020-01-03 15:11:00 153 mm[Hg] Univer sity of pressure [facility] Diastolic blood 2020-01-03 15:11:00 89 mm[Hg] Unive rsity of pressure [facility] Heart rate 2020-01-03 15:11:00 88 /min [facility] Body temperature 2020-01-03 15:11:00 37.33 [place] [facility] Respiratory rate 2020-01-03 15:11:00 18 /min Univ [facility] Body weight 2020-01-03 15:11:00 86.183 kg [facility] BMI 2020-01-03 15:11:00 28.89 kg/m2 [facility] Oxygen saturation in 2020-01-03 15:11:00 98 /min [facility] Arterial blood by [facility] Pulse oximetry Branch Systolic blood 2019-08-12 15:40:00 130 mm[Hg] Univer sity of pressure [facility] Diastolic blood 2019-08-12 15:40:00 81 mm[Hg] Unive rsity of pressure [facility] Heart rate 2019-08-12 15:40:00 86 /min [facility] Body temperature 2019-08-12 15:40:00 36.17 [place] [facility] Respiratory rate 2019-08-12 15:40:00 16 /min Univ [facility] Body height 2019-08-12 15:40:00 172.7 cm [facility] Body weight 2019-08-12 15:40:00 87.998 kg [facility] BMI 2019-08-12 15:40:00 29.50 kg/m2 [facility] Systolic blood 2019-08-12 15:40:00 130 mm[Hg] Univer sity of pressure [facility] Diastolic blood 2019-08-12 15:40:00 81 mm[Hg] Unive rsity of pressure [facility] Heart rate 2019-08-12 15:40:00 86 /min [facility] Body temperature 2019-08-12 15:40:00 36.17 [place] [facility] Respiratory rate 2019-08-12 15:40:00 16 /min [facility] Body height 2019-08-12 15:40:00 172.7 cm [facility] Body weight 2019-08-12 15:40:00 87.998 kg [facility] BMI 2019-08-12 15:40:00 29.50 kg/m2 [facility] Systolic blood 2019-07-26 19:33:00 109 mm[Hg] [facility] Diastolic blood 2019-07-26 19:33:00 72 mm[Hg] [facility] Heart rate 2019-07-26 19:33:00 71 /min [facility] Body temperature 2019-07-26 19:33:00 36.78 [place] [facility] Respiratory rate 2019-07-26 19:33:00 16 /min [facility] Body height 2019-07-26 19:33:00 172.7 cm [facility] Body weight 2019-07-26 19:33:00 87.573 kg [facility] BMI 2019-07-26 19:33:00 29.36 kg/m2 [facility] Systolic blood 2019-07-26 19:33:00 109 mm[Hg] [facility] Diastolic blood 2019-07-26 19:33:00 72 mm[Hg] [facility] Heart rate 2019-07-26 19:33:00 71 /min [facility] Body temperature 2019-07-26 19:33:00 36.78 [place] [facility] Respiratory rate 2019-07-26 19:33:00 16 /min [facility] Body height 2019-07-26 19:33:00 172.7 cm [facility] Body weight 2019-07-26 19:33:00 87.573 kg [facility] BMI 2019-07-26 19:33:00 29.36 kg/m2 [facility] Systolic blood 2019-04-21 21:30:00 126 mm[Hg] [facility] Diastolic blood 2019-04-21 21:30:00 64 mm[Hg] Unive rsity of pressure [facility] Heart rate 2019-04-21 21:30:00 62 /min [facility] Body temperature 2019-04-21 21:30:00 36.5 [place] [facility] Respiratory rate 2019-04-21 21:30:00 18 /min [facility] Oxygen saturation in 2019-04-21 21:30:00 99 /min [facility] Arterial blood by [facility] Pulse oximetry Branch Body height 2019-04-20 16:47:00 172.7 cm [facility] Body weight 2019-04-20 16:47:00 85.276 kg [facility] BMI 2019-04-20 16:47:00 28.59 kg/m2 [facility] Systolic blood 2018-11-01 19:43:00 113 mm[Hg] Univer [facility]ity of pressure [facility] Diastolic blood 2018-11-01 19:43:00 67 mm[Hg] Unive rsity of pressure [facility] Heart rate 2018-11-01 19:43:00 87 /min [facility] Body temperature 2018-11-01 19:43:00 37.11 [place] [facility] Respiratory rate 2018-11-01 19:43:00 16 /min [facility] Body height 2018-11-01 19:43:00 172.7 cm [facility] [place] Body weight 2018-11-01 19:43:00 77.111 kg [facility] [place] BMI 2018-11-01 19:43:00 25.85 kg/m2 [facility] BP Systolic 2021-11-28 11:16:00 145 mm[Hg] BP [...] Helder Respitory Rate 2017-12-18 03:40:00 Memori al Helder Systolic (mm Hg) 2017-12-18 03:40:00 Dewayne rial [facility]der Diastolic (mm Hg) 2017-12-18 03:40:00 Mem orial [facility] Temperature Oral (F) 2017-12-18 02:07:00 98.7 F [facility] Systolic (mm Hg) 2017-12-18 02:07:00 Dewayne rial [place] Diastolic (mm Hg) 2017-12-18 02:07:00 Mem orial [place] Systolic (mm Hg) 2017-12-18 01:36:00 Dewayne rial [place] Diastolic (mm Hg) 2017-12-18 01:36:00 [facility] [place] Weight 2017-12-18 01:01:00 [facility] BMI Calculated 2017-12-18 01:01:00 Memori al [facility] Heart Rate 2017-12-18 01:01:00 [facility] Height 2017-12-18 01:01:00 172.72 cm [facility] Temperature Oral (F) 2017-12-18 01:01:00 98.9 F [...] Oral (F) 2017-01-08 13:00:00 98.0 F [facility] Systolic (mm Hg) 2017-01-08 13:00:00 Dewayne rial [place] Diastolic (mm Hg) 2017-01-08 13:00:00 Mem orial [place] Respitory Rate 2017-01-08 13:00:00 [facility] [place] Heart Rate 2017-01-08 13:00:00 [facility] Systolic (mm Hg) 2017-01-08 01:20:00 Dewayne rial [place] Diastolic (mm Hg) 2017-01-08 01:20:00 Mem orial [place] Temperature Oral (F) 2017-01-08 01:20:00 98.2 F [facility] Heart Rate 2017-01-08 01:20:00 [facility] Respitory Rate 2017-01-07 21:08:00 [facility] [place] Temperature Oral (F) 2017-01-07 21:08:00 98.6 F [facility] Heart Rate 2017-01-07 21:08:00 [facility] Systolic (mm Hg) 2017-01-07 21:08:00 Dewayne [facility] [place] Diastolic (mm Hg) 2017-01-07 21:08:00 Mem orial [place] Respitory Rate 2017-01-07 17:00:00 [facility] [place] BMI Calculated 2017-01-06 14:20:00 Memori al [facility] Weight 2017-01-06 14:20:00 [facility] Height 2017-01-06 14:20:00 172.72 cm [facility] Procedures Procedure Date / Time Performing Clinician Source Performed POCT URINALYSIS W/O 2022-03-04 22:04:00 Rosa [facility] ASSIGNMENT OF BENEFITS 2022-01-06 15:10:25 [facility] [place] POCT TEST 2022-01-06 00:00:00 Rosa [facility] POCT URINALYSIS W/O 2022-01-06 00:00:00 Rosa [facility] AUTHORIZATION FOR RELEASE 2021-10-28 05:01:00 Doctor Unassigned, [facility] Name [facility] [place] HB ECG ROUTINE & RHYTHM 2021-10-07 09:59:21 Lori Montaño [facility] CREATINE KINASE 2021-10-07 09:50:00 Andrew Laws [facility] MAGNESIUM 2021-10-07 09:50:00 Sabra [facility] FERRITIN SERUM 2021-10-07 09:50:00 Sabra [facility] THYROID STIMULATING 2021-10-07 09:50:00 Lori Montaño [facility] HORMONE [facility] Branch BASIC METABOLIC PANEL 2021-10-07 09:50:00 Lori Montaño [facility] (NA, K, CL, CO2, GLUCOSE, Medica l Branch BUN, CREATININE, CA) IRON PANEL 2021-10-07 09:50:00 Sabra [facility] CBC WITHOUT DIFF 2021-10-07 09:50:00 Sabra [facility] LIPID PANEL ([id number])(TOTAL 2021-10-05 12:36:00 Gabe Mann Un [facility] CHOLESTEROL, Medical Branch TRIGLYCERIDES, HDL) MAGNESIUM 2021-10-04 08:47:00 Francesca Villafuerte [facility] BASIC METABOLIC PANEL 2021-10-04 08:47:00 Christo [facility] (NA, K, CL, CO2, GLUCOSE, [facility] Medica l Branch BUN, CREATININE, CA) HB ECG ROUTINE & RHYTHM 2021-10-03 15:17:11 Mina Neves [facility] Branch XR KUB 2021-10-03 13:00:00 Christo [facility] PHOSPHORUS 2021-10-03 11:49:00 [facility] MAG[facility]UM 2021-10-03 11:49:00 [facility] HEPATIC FUNCTION PANEL 2021-10-03 11:49:00 [facility] ([id number]) (ALB,T.PRO,BILI [facility] [place] T,BU/BC,ALT,AST,ALK PHOS) BASIC METABOLIC PANEL 2021-10-03 11:49:00 [facility] (NA, K, CL, CO2, GLUCOSE, Medica l Branch BUN, CREATININE, CA) CBC WITH DIFF 2021-10-03 11:49:00 [facility] MRSA / MSSA SCREEN BY 2021-10-03 11:24:00 [facility] PANEL 20 + LACTIC ACID 2021-10-03 11:23:00 [facility] 2021-10-03 10:28:[address] [facility] MI INSERT EMERGENCY 2021-10-03 10:28:00 Laurie Fiore [facility] ENDOTRACH AIRWAY Medical Branch COVID-19 (ID NOW RAPID 2021-10-03 05:19:00 Laurie Fiore [facility] TESTING) Medical Branch LAB ONLY COVID 2021-10-03 05:19:00 Laurie Fiore [facility] POCT TEST 2021-10-03 04:53:00 Laurie Fiore [facility] [place] CREATINE KINASE 2021-10-03 04:48:[address] [facility] TEST, SERUM 2021-10-03 04:48:00 Laurie Fiore [facility] COMP. METABOLIC PANEL 2021-10-03 04:48:00 Laurie Fiore [facility] ([id number]) [facility] SALICYLATE 2021-10-03 04:48:[address] [facility] ETHANOL 2021-10-03 04:48:[address] [facility] CBC WITH DIFF 2021-10-03 04:48:[address] [facility] URINALYSIS 2021-10-03 04:48:[address] [facility] URINE DRUG (IMMUNOASSAY) 2021-10-03 04:48:00 Laurie Fiore [facility] DRUG Medical [facility] nch SCREEN W/O REFLEX XR CHEST 1 VW 2021-10-03 04:02:[address] [facility] NOTICE OF PRIVACY 2021-07-23 02:08:37 Doctor Jack [facility] [place] [facility] CONSENT/REFUSAL FOR 2021-07-23 02:07:51 Doctor Jack [facility] DIAGNOSIS AND TREATMENT [place] [facility] NOTICE OF PRIVACY 2021-06-24 21:03:18 Doctor Jack [facility] [place] [facility] CONSENT/REFUSAL FOR 2021-06-24 21:03:07 Doctor Jack [facility] DIAGNOSIS AND TREATMENT [place] [facility] XR CHEST 1 VW 2020-09-12 02:56:56 Grace Salmon [facility] POCT TEST 2020-09-12 02:09:00 Grace Salmon [facility] COVID-19 (ID NOW RAPID 2020-09-12 02:06:00 Grace Salmon [facility] TESTING) Medical Branch CONSENT/REFUSAL FOR 2020-09-12 01:20:13 Doctor Jack [facility] DIAGNOSIS AND TREATMENT [place] [facility] [place] NOTICE OF PRIVACY 2020-06-12 15:58:15 Doctor Jack [facility] [place] [facility] CONSENT/REFUSAL FOR 2020-06-12 15:58:03 Doctor Jack Unive [facility] DIAGNOSIS AND TREATMENT [place] [facility] NOTICE OF PRIVACY 2020-01-03 14:52:20 Doctor Jack, [facility] PRACTICES [place] [facility] CONSENT/REFUSAL FOR 2020-01-03 14:51:58 [facility] DIAGNOSIS AND TREATMENT [place] [facility] [place] POCT TEST 2019-07-26 20:23:00 Heaven [facility] WITH DIFFERENTIAL 2019-04-21 10:10:00 Yamel Diallo [facility] VENOUS CORD GAS 2019-04-20 23:48:00 Yoel [facility] HB ABO GROUPING 2019-04-20 18:00:00 Yoel [facility] RHO (D) IMMUNE GLOBULIN 2019-04-20 18:00:00 Yamel Diallo [facility] WITH DIFFERENTIAL 2019-04-20 17:57:00 Yamel Diallo [facility] HEPATITIS B SURFACE 2019-04-20 17:57:00 Yamel Diallo [facility] ANTIGEN Medical Branch ADC OR IVETH ONLY - RPR 2019-04-20 17:57:00 [facility]2 AG-AB WITH REFLEX 2019-04-20 17:57:00 Yamel Diallo Un [facility] CONSENT/REFUSAL FOR 2019-04-20 16:37:53 Doctor Jack [facility] DIAGNOSIS AND TREATMENT [place] [facility] [place] ASSIGNMENT OF BENEFITS 2019-04-20 16:37:37 Doctor Jack, [facility] POCT TEST 2018-11-01 19:45:00 Anamaria Biswas [facility] POCT URINALYSIS W/O 2018-11-01 19:45:00 Anamaria Biswas [facility] SPECIFIC GRAVITY Medical Branch ASSIGNMENT OF BENEFITS 2018-11-01 19:06:50 Doctor Jack, [facility] Plan of Care Planned Activity Planned Date Details Comments Source Future Scheduled 2022-04-06 COVID-[address] [facility] Test 19:03:32 (#1) [code = COVID-19 VACCINE (#1)] Future Scheduled 2022-04-06 [facility] Test 19:03:32 malignant neoplasm of cervix (procedure) [code = 653918689] Future Scheduled 2022-04-06 [facility]ENZA [facility]ACCINE [facility] Test 19:03:32 [code = INFLUENZA VACCINE] Future Scheduled 2022-01-09 [facility] 20:05:18 VACCINES (1 of 3 - 3-dose series) [code = HEPATITIS B VACCINES (1 of 3 - 3-dose series)] Future Scheduled 2022-01-09 COVID-[address] [facility] Test 20:05:18 (#1) [code = COVID-19 VACCINE (#1)] Future Scheduled 2022-01-09 [facility] Test 20:05:18 screening (procedure) [code = 204532543] Future Scheduled 2022-01-09 [facility] Test 20:05:18 malignant neoplasm of cervix (procedure) [code = 253610466] Future Scheduled 2022-01-09 [facility]ZA [facility]INE [facility] Test 20:05:18 [code = INFLUENZA VACCINE] Future Scheduled 2021-11-15 [facility]-19 [facility]INE [facility] Test 10:47:23 (#1) [code = COVID-19 VACCINE (#1)] Future Scheduled 2021-11-15 [facility] Test 10:47:23 screening (procedure) [code = 365604572] Future Scheduled 2021-11-15 [facility] Test 10:47:23 malignant neoplasm of cervix (procedure) [code = 728646118] Future Scheduled 2021-11-15 [facility]ACCINE [facility] Test 10:47:23 [code = INFLUENZA VACCINE] Future Scheduled 2021-11-15 [facility] 10:47:23 VACCINES (1 of 3 - 3-dose series) [code = HEPATITIS B VACCINES (1 of 3 - 3-dose series)] Future Scheduled 2021-11-15 COVID-19 [facility]ACCINE [facility] Test 10:47:23 (#1) [code = COVID-19 VACCINE (#1)] Future Scheduled 2021-11-15 [facility] Test 10:47:23 screening (procedure) [code = 124994521] Future Scheduled 2021-11-15 [facility] Test 10:47:23 malignant neoplasm of cervix (procedure) [code = 199130182] Future Scheduled 2021-11-15 [facility]ZA [facility]ACCINE [facility] Test 10:47:23 [code = INFLUENZA VACCINE] Future Scheduled 2021-11-15 [facility] 10:47:23 VACCINES (1 of 3 - 3-dose series) [code = HEPATITIS B VACCINES (1 of 3 - 3-dose series)] Goal Plan of Care Note [code = 43925-9] Goal Plan of Care Note [code = 83377-7] Goal Plan of Care Note [code = 05570-9] Goal Plan of Care Note [code = 35406-3] Goal Plan of Care Note [code = 77884-2] Goal Plan of Care Note [code = 20850-1] Goal Plan of Care Note [code = 09099-0] Goal Plan of Care Note [code = 87288-7] Goal Plan of Care Note [code = 19811-7] Goal Plan of Care Note [code = 56926-7] Goal Plan of Care Note [code = 33081-5] Goal Plan of Care Note [code = 21059-3] Goal Plan of Care Note [code = 04726-2] Goal Plan of Care Note [code = 92265-1] Goal Plan of Care Note [code = 89322-0] Goal Plan of Care Note [code = 18774-4] Goal Plan of Care Note [code = 20375-7] Goal Plan of Care Note [code = 59998-0] Goal Plan of Care Note [code = 74610-8] Goal Plan of Care Note [code = 62450-4] Goal Plan of Care Note [code = 36964-5] Goal Plan of Care Note [code = 09298-5] Goal Plan of Care Note [code = 21878-0] Goal Plan of Care Note [code = 25031-8] Goal Plan of Care Note [code = 25887-5] Goal Plan of Care Note [code = 66323-7] Encounters Start End Encounter Admission Attending Care Care Encounter Source Date/Time Date/Time Type Type Clinicians Facility Department ID 2021-01-14 Emergency [facility] [id number] Univers 04:48:57 ity of [facility] 2021-01-13 Emergency [facility] [id number] Univers 09:29:25 ity of [facility] 2021-01-11 Emergency [facility] [id number] Univers 23:55:14 ity of [facility] 2022-04-11 2022-04-11 Telephone [facility] 1.2.840.11 [id number] Univers 00:00:00 00:00:00 Senait [place] [id number] it [place] [id number] [address] 2022-04-08 2022-04-08 Letter [facility] 1.2.840.114 [id number] Univers 00:00:00 00:00:00 (Out) Senait [place] 350.1.13.10 [place] [id number] [address] 2022-04-01 2022-04-01 [facility] [id number] Univers 10:15:00 10:32:00 SENAIT LEE [facility] 2022-04-01 2022-04-01 Routine [facility] 1.2.840.114 [id number] Univers 10:15:00 10:32:00 Senait LION 350.1.13.10 i ty of [place] [id number] [address] 2022-03-04 2022-03-04 Routine [facility] 1.2.840.114 [id number] Univers 16:30:00 16:30:00 Senait [place] 350.1.13.10 i ty [place] [id number] [address] 2022-03-04 2022-03-04 Outpatient R SENAIT LEE [facility] [id number] Univers 16:30:00 16:19:32 ROSCOESENAIT PEREZ [facility] 2022-03-04 2022-03-04 Driller'S Assistant Ultrasound, [facility] 1.2 .840.114 [id number] Univers 09:00:00 10:00:00 Visit Whit Campo 350.1 .13.10 [place] [id number] N[place] dical NAL [address] [facility] 2022-03-04 2022-03-04 [facility] 1.2.840.114 [id number] Univers 00:00:00 00:00:00 Management Senait [place] 350.1.13.10 [place] [id number] [address] 2022-02-04 2022-02-04 Outpatient R SENAIT LEE [facility] [id number] Univers 11:30:00 11:48:56 ROSASENAIT birgit [facility] 2022-02-04 2022-02-04 Routine [facility] 1.2.840.114 [id number] Univers 11:30:00 11:48:56 Senait [place] 350.1.13.10 i ty [place] [id number] [address] 2022-01-21 2022-01-21 Driller'S Assistant 2, [facility] Lab [facility] 1.2.840.114 [id number] Univers 10:45:00 11:41:37 Visit SalimadanyaSenait ortega 350.1.13. 10 ity [facility] [place] [id number] N[place] dical NAL 353 [facility] 2022-01-21 2022-01-21 Outpatient R SENAIT LEE [facility] [id number] Univers 10:45:00 10:45:00 ROSA SENAIT birgit [facility] 2022-01-21 2022-01-21 Telephone LILY Lee 1.2.840.11 [id number] Univers 00:00:00 00:00:00 Senait [place] 350.1.13.10 it [place] [id number] [address] 2022-01-20 2022-01-20 Outpatient R SENAIT LEE [facility] [id number] Univers 10:30:00 10:30:00 SENAIT LEE [facility] 2022-01-06 2022-01-06 Outpatient R SENAIT LEE [facility] [id number] Univers 10:30:00 11:15:32 SENAIT LEE [facility] 2022-01-06 2022-01-06 [facility] 1.2.840.114 [id number] Univers 10:30:00 11:15:32 Senait [place] 350.1.13.10 i ty of [place] [id number] [address] 2022-01-06 2022-01-06 Orders Doctor KIM 1.2.840.114 [id number] Univers 00:00:00 00:00:00 Only Unassigned, SHYANN 350.1.13.10 ity of [place] [facility] 4.2.7.2.686 Eulogio as [id number] [place] [address] Branch 2021-11-28 2021-11-28 Outpatient [id number] 00:00:00 00:00:00 Visit [id number] [id number] -67n0-bta [id number]-[id number] 2021-11-21 2021-11-21 Outpatient [id number] 00:00:00 00:00:00 Visit [id number] [id number]-[id number] -880e-08e [id number] [id number] 2021-10-282021-10-28 Orders Doctor KIM 1.2.840.114 [id number] Univers 00:00:00 00:00:00 Only Unassigned, SHYANN 350.1.13.[address] [facility] 4.2.7.2.686 Eulogio as [id number] [facility] 009 Branch 2021-10-08 2021-10-08 Transition JEREMY Bennett 1.2.840.114 [id number] Univers 00:00:00 00:00:00 of Care Ligia VALLEJO 350.1.13.10 i ty of [place] [id number] [facility] 403 Branch 2021-10-02 2021-10-07 Inpatient X CRISTIAN [facility] CRYSTAL [id number] Univers 22:16:00 13:00:00 LEONEL itdaily of [facility] 2021-10-02 2021-10-07 Hospital Laurie Fiore 1.2.840.1 [id number] Univers 22:16:00 13:00:00 Encounter Leonel Miller 350.1.13 .10 ity [facility] 4.2.7.2.686 Leonel Alvarado [id number] [place] [id number] Branch 2021-07-22 2021-07-22 Emergency [facility] [id number] Univers 21:31:00 22:44:00 BEN ity [facility] 2021-07-22 2021-07-22 Emergency [facility] 1.2.137.259 [id number] Univers 21:31:00 22:44:00 Ben S DARREN 350.1.13.10 i ty of [place] [id number] [facility] 084 Branch 2021-06-24 2021-06-24 Emergency X SILAS [facility] ERT [id number] Univers 16:14:00 17:33:00 MITALI ity of [facility] 2021-06-24 2021-06-24 Emergency Silas [facility] 1.2.840.114 [id number] Univers 16:14:00 17:33:00 Mitali DARREN 350.1.13.10 i ty of [place] 4.2.7.[address] [place] [id number] 2020-09-11 2020-09-11 Emergency [facility] 1.2.776.468 [id number] Univers 20:38:00 22:54:00 Grace Capellan Darren 350.1.13.10 ity of [place] 4.2.7.[address] [place] [id number] 2020-09-11 2020-09-11 Orders Doctor ALVAREZ 1.2.840.114 [id number] Univers 00:00:00 00:00:00 Only Unassigned, SHYANN 350.1.13.10 [place] [address] [place] [id number] 2020-08-20 2020-08-20 Outpatient Ever HOLT [facility] [id number] Univers 10:30:00 10:30:00 CHANELLVERONICA constantinodaily [facility] 2020-07-02 2020-07-02 Outpatient Ever HOLT [facility] [id number] Univers 11:00:00 11:00:00 CHANELLVERONICA genao [facility] 2020-06-12 2020-06-12 Emergency [facility] 1.2.840.114 [id number] Univers 11:05:00 11:12:00 Mitali Sotelo 350.1.13.10 i ty of [place] 4.2.7.2.[address] [place] [id number] 2020-06-12 2020-06-12 Emergency [facility], [facility] 1.2.840.114 [id number] 11:05:00 11:12:00 Mitali Sotelo 350.1.13.10 [place] [address] [place] [address] [id number] [facility] 2020-06-12 2020-06-12 Orders Doctor ALVAREZ 1.2.840.114 [id number] Univers 00:00:00 00:00:00 Only Unassigned, SHYANN 350.1.13.10 ity [place] [facility]PITAL 4.2.7.2.686 Eulogio as [id number] [facility] 009 Branch 2020-06-12 2020-06-12 Orders Doctor KIM 1.2.840.114 [id number] 00:00:00 00:00:00 Only Unassigned, SHYANN 350.1.13.10 [place] [facility] 4.2.7.2.686 [id number] 009 2020-06-05 2020-06-05 Patient Edward [facility] 1.2.840.114 [id number] Univers 00:00:00 00:00:00 Outreach Miguel Angel PRIMARY 350.1.13.10 i ty of [place] [facility] [place]2.[place] [id number] N[place] dical 388 Branch 2020-06-05 2020-06-05 Patient Edward ILBANDAR 1.2.840.114 [id number] 00:00:00 00:00:00 Outreach Miguel Angel PRIMARY 350.1.13.10 [place] CARE 4.2.7.2.686 PAVILLION [id number] 2020-01-03 2020-01-03 Emergency [facility] 1.2.840.114 [id number] [facility] 10:20:00 11:05:00 Emily Sotelo 350.1.13.10 it[place] of [place] [id number] [facility] 084 Branch 2020-01-03 2020-01-03 Emergency [facility] 1.2.840.114 [id number] 10:20:00 11:05:00 Emily Sotelo 350.1.13.10 [place] [id number] [place] [id number] 2020-01-03 2020-01-03 Telephone Linnette Jain 1.2.840.114 [id number] [facility] 00:00:00 00:00:00 SHYANN 350.1.13.10 it y of HOSPITAL 4.2.7.2.686 [place] as [id number] [facility] [address] 2020-01-03 2020-01-03 Telephone Linnette Jain 1.2.840.114 [id number] 00:00:00 00:00:00 SHYANN [address]13.[address]686 [id number] [id number] 2019-11-04 2019-11-04 Outpatient R [facility] [id number] Univers 10:00:00 10:00:00 ity of [facility] 2019-08-12 2019-08-12 Nurse Visit, Margiealexandru Nurse [facility] 1.2 .840.114 [id number] Univers 10:14:36 10:29:36 Visit Heaven Guadalupe ENGINEER [employer]PRODUCT 350.1.13. 10 ity of [facility] 4.2.7.2.686 Eulogio as MATERNAL [phone] [facility] [address] [place] [address] 2019-08-12 2019-08-12 Nurse Visit, [facility] 1.2.840.114 [id number] 10:14:36 10:29:36 [facility] ENGINEER [employer]PRODUCT 350.1.13.10 Nurse [place] [address].2.7.2.686 MATERNAL [phone] & CHILD [address] [place] [address] 2019-08-12 2019-08-12 Outpatient R CLARIKYLER [facility] [id number] Univers 10:00:00 10:00:00 HEAVEN ity o f [facility] 2019-08-12 2019-08-12 Telephone [facility] 1.2.840.114 [id number] Univers 00:00:00 00:00:00 Heaven C ENGINEER [employer]PRODUCT 350.1.13.10 ity of [facility] 4.2.7.2.686 Eulogio as MATERNAL [phone] [facility] [address] [place] [address] 2019-08-12 2019-08-12 Case [facility] 1.2.785.098 [id number] Univers 00:00:00 00:00:00 Management Heaven C ENGINEER [employer] 350.1.13.10 ity of [facility] 4.2.7.2.686 Eulogio as MATERNAL [phone] [facility] [address] [place] [address] 2019-08-12 2019-08-12 Telephone [facility] 1.2.840.114 [id number] 00:00:00 00:00:00 Heaven C ENGINEER [employer] 350.1.13.10 REGIONAL 4.2.7.2.686 MATERNAL [phone] & CHILD 107 [facility] 2019-08-12 2019-08-12 Case [facility] 1.2.458.369 [id number] 00:00:00 00:00:00 Management Heaven C ENGINEER [employer] 350.1.13.10 REGIONAL 4.2.7.2.686 MATERNAL [id number] & CHILD 107 [facility] 2019-08-11 2019-08-11 Telephone [facility] 1.2.840.114 [id number] Univers 00:00:00 00:00:00 Heaven C ENGINEER [employer] 350.1.13.10 ity of REGIONAL 4.2.7.2.686 Eulogio as MATERNAL [id number] Med ical & CHILD [address] [place] [address] 2019-08-11 2019-08-11 Telephone [facility] 1.2.840.114 [id number] 00:00:00 00:00:00 Heaven C ENGINEER [employer] 350.1.13.10 REGIONAL 4.2.7.2.686 MATERNAL [id number] & CHILD 107 [facility] 2019-07-26 2019-07-26 [facility] 1.2.988.791 [id number] [facility] 14:00:18 15:22:03 Visit Heaven C ENGINEER [employer]PR[employer] 350.1.13.10 ity of REGIONAL 4.2.7.2.686 Eulogio as MATERNAL [phone] Med ical & CHILD [address] [place] [address] 2019-07-26 2019-07-26 Office [facility] 1.2.998.209 [id number] 14:00:18 15:22:03 Visit Heaven C ENGINE[employer] 350.1.13.10 REGIONAL 4.2.7.2.686 MATERNAL [phone] & CHILD 107 [facility] 2019-07-26 2019-07-26 Outpatient R LAVERNE [facility] [id number] [facility] 14:15:00 14:15:00 HEAVEN ity o f [facility] 2019-07-13 2019-07-13 Telephone [facility] 1.2.840.114 [id number] Univers 00:00:00 00:00:00 Anamaria N ENGINEER [employer]PR[employer] 350.1.13.10 it y of [facility] 4.2.7.2.686 Eulogio as MATERNAL [phone] Med ical & CHILD [address] [place] [address] 2019-04-20 2019-04-21 [facility] Yamel Diallo [facility] 1.2.840.114 [id number] Univers 10:29:00 20:22:00 Encounter [facility] 350.1.13.10 ity of [place] 4.2.7.2.686 [place] [facility] [id number] [address] 2019-04-20 2019-04-20 Telephone [facility] 1.2.840.114 [id number] Univers 00:00:00 00:00:00 Anamaria Blum ENGINEER [employer]PRODUCT 350.1.13.10 it y of [facility] 4.2.7.2.686 Eulogio as MATERNAL [id number] Med ical & CHILD [address] [place] [address] 2019-04-19 2019-04-19 Patient Doctor [facility] 1.2.840.114 [id number] Univers 00:00:00 00:00:00 Secure Msg Unassigned, ENGINEER [employer]PRODUCT 350.1.13.10 ity of [place] REGIONAL 4.2.7.2.686 Eulogio as MATERNAL [phone] Med ical & CHILD [address] [place] [address] 2019-04-19 2019-04-19 Patient Doctor [facility] 1.2.840.114 [id number] Univers 00:00:00 00:00:00 Secure Msg Unassigned, ENGINEER [employer]PRODUCT 350.1.13.10 ity of [place] REGIONAL 4.2.7.2.686 Eulogio as MATERNAL [phone] Med ical & CHILD [address] [place] [address] 2018-11-03 2018-11-03 Telephone [facility] 1.2.840.114 [id number] Univers 00:00:00 00:00:00 Anamaria Blum ENGINEER [employer]PRODUCT 350.1.13.10 it y of [facility] 4.2.7.2.686 Eulogio as MATERNAL [id number] Med ical & CHILD 107 [facility] 2018-11-01 2018-11-01 Initial Xavier [facility] 1.2.549.517 [id number] [facility] 14:25:40 15:32:55 Anamaria N ENGINEER [employer]PRODUCT 350.1.13.10 i ty of Visit [facility] 4.2.7.2.686 Eulogio as MATERNAL [id number] [facility] ical & CHILD 107 [facility] 2018-11-01 2018-11-01 Orders Doctor KIM 1.2.840.114 [id number] Univers 00:00:00 00:00:00 Only Unassigned, SHYANN 350.1.13.10 ity of [place] [facility] 4.2.7.2.686 Eulogio as [id number] [address] 2017-12-18 2017-12-18 [facility] [id number] Memoria 00:59:00 03:53:00 r Helder 01 l [facility] 2017-12-18 2017-12-18 [facility] [id number] Memoria 00:59:00 03:53:00 r Helder 01 l [facility] 2017-12-17 2017-12-[address] [facility] [id number] 19:59:00 22:53:00 Eric 2017-09-29 2017-09-29 Outpatient [facility] [id number] [place] 17:11:19 17:11:19 [facility] 2017-06-02 2017-06-02 Emergency [facility] [id number] [place] 20:36:43 20:36:43 Health 2017-06-02 2017-06-02 Outpatient [facility] [id number] [place] 00:00:00 00:00:00 [facility] 2017-01-06 2017-01-08 [facility] [id number] Memoria 13:38:00 20:17:00 r Helder 00 l [facility] 2017-01-06 2017-01-08 [facility] [id number] Memoria 13:38:00 20:17:00 r Helder 00 l [facility] 2017-01-06 2017-01-08 Outpatient JESSIE Ryan [facility] [id number] 08:38:00 15:17:00 [place] [address] 2016-12-05 2016-12-05 Outpatient [facility] [id number] [place] 00:00:00 00:00:00 [facility] 2016-12-05 2016-12-05 Outpatient [facility] [id number] [place] 00:00:00 00:00:00 [facility] 2016-11-28 2016-11-28 Outpatient [facility] [id number] [place] 00:00:00 00:00:00 [facility] 2016-11-26 2016-11-26 Outpatient [facility] [id number] [place] 16:32:00 16:32:00 [facility] 2016-11-26 2016-11-26 Outpatient [facility] [id number] [place] 00:00:00 00:00:00 [facility] 2016-11-13 2016-11-13 Emergency [facility] MED [id number] [place] 02:04:55 02:04:55 [facility] 2016-08-25 2016-08-25 Emergency E [facility] [id number] 13:00:00 13:00:00 [facility] Results Test Description Test Time Test Comments Results Result Comments Source POCT URINALYSIS W/O SPECIFIC GRAVITY 2022-03-04 22:05:00 Test Item Value Reference Range Interpretation Comme nts POCT PH U (test code = 3254) n/a 5-8 POCT U LEUK EST (test code = 3263) n/a Negative - Negative POCT U NIT (test code = 3262) n/a Negative - Negative POCT U PROT (test code = 3259) negative Negative - Negative POCT U GLU (test code = 3256) negative Negative - Negative POCT U KETONE (test code = 3258) n/a Negative - Negative POCT U BLD (test code = 3257) n/a Negative - Negative [facility]/O SPECIFIC [id number] 16:11:00 Test Item Value Reference Range Interpretation Comments POCT PH U (test code = 3254) N/A 5-8 POCT U LEUK EST (test code = N/A Negative - Negative 3263) POCT U NIT (test code = 3262) N/A Negative - Negative POCT U PROT (test code = 3259) Negative Negative - Negative POCT U GLU (test code = 3256) Negative Negative - Negative POCT U KETONE (test code = 3258) N/A Negative - Negative POCT U BLD (test code = 3257) N/A Negative - Negative [facility] [id number] 15:57:00 Test Item Value Reference Range Interpretation Comments POCT PREG (test code = 1605) Positive On board controls acceptable with C Yes Line (test code = 3574) POCT PREG LOT # (test code = 3575) POCT PREG TEST DATE (test code = 3576) [facility], [id number] 14:20:12SPECIMEN NUMBER: [id number] CULTURE, URINE SPECIMEN NUMBER: [id number] SPECIMEN COMMENT: URINE;[id number] SOURCE: URINE REPORT STATUS: FINAL FINAL REPORT: 12/06/2021 50- 100,000 CFU/ML UROGENITAL WOODY PRESENT NO COMMON PATHOGENS UNLESS OTHERWISE INDICATED, ALL TESTING PERFORMED [facility] [address] [place] [address] STRATEGIC PROCUREMENT MANAGER: LIBRADO ARCEO M.D. [place] NUMBER [id number] [place]. [id number], [id number] 00:00:00 Test Item Value Reference Range Interpretation Comments CULTURE, URINE (test SPECIMEN NUMBER: code = 20979) [id number] CULTURE, [id number] 00:00:00 Test Item Value Reference Range Interpretation Comments CULTURE, URINE (test SPECIMEN NUMBER: code = 52558) [id number] CREATINE [id number] 16:45:55 Test Item Value Reference Range Interpretation Comments CK (test code = 0119579089) 505 U/L 33-194 H Lab Interpretation (test code = Abnormal 56045-0) [facility]ound[facility]ERRITIN [id number] 11:33:50 Test Item Value Reference Range Interpretation Comments FERRITIN (test code = 43.2 ng/mL 6-137 4724060373) OMARI (test code = OMARI) Biotin has been reported to cause a negative bias, interpret results relative to patient's use of biotin. Lab Interpretation (test Normal code = 70309-3) [facility]oundTHYROID STIMULATING [id number] 11:26:11 Test Item Value Reference Range Interpretation Comments TSH (test code = See_Comment Biotin has been 2900635950) reported to cau se a negative bias, interpret resul ts relative to davie harris's use of biotin. [Automated mess age] The system [employer] generated this result transmitted ref erence range: 0.45 - 4 .70 mIU/L. The refe rence range was not u sed to interpret this result as normal/abnor mal. Lab Interpretation (test Normal code = 74586-1) [facility] MoundIRO [id number] 11:02:44 Test Item Value Reference Range Interpretation Comments IRON (test code = 1745740838) 36 ug/dL 50-160 L TIBC (test code = 4215112705) 342 ug/dL 250-410 % FE SAT (test code = 9042303380) 11 % 20-50 L Lab Interpretation (test code = Abnormal 47698-9) [facility] METABOLIC PANEL (NA, K, CL, CO2, GLUCOSE, BUN, CREATININE, CA)2021-10-07 10:53:28 Test Item Value Reference Range Interpretation Comments NA (test code = 139 mmol/L 135-145 9977917255) K (test code = 3.5 mmol/L 3.5-5 6112926610) CL (test code = 111 mmol/L 98-108 H 1101022712) CO2 TOTAL (test code = 20 mmol/L 23-31 L 9427454507) AGAP (test code = 2-16 3158935389) BUN (test code = 4 mg/dL 7-23 L 0326062644) GLUCOSE (test code = 101 mg/dL 70-110 7750593712) CREATININE (test code = 0.61 mg/dL 0.5-1.04 5985765498) CALCIUM (test code = 8.7 mg/dL 8.6-10.6 6540447070) eGFR (test code = mL/min/1.73m2 7950051455) OMARI (test code = OMARI) Association of [...] tests). Lab Interpretation Abnormal (test code = 18077-1) [facility]NESIUM2022-07-25 10:53:28 Test Item Value Reference Range Interpretation Comments MAGNESIUM (test code = 0299222982) 1.7 mg/dL 1.7-2.4 Lab Interpretation (test code = Normal 94559-3) [facility] WITHOUT [id number] 10:16:24 Test Item Value Reference Range Interpretation Comments WBC (test code = 6690-2) See_Comment [A utomated message] The system [employer] generated this result transmit sue reference range : 4.30 - 11.10 10*3/?L. The reference range was not used to interpret this result as normal/abnormal . RBC (test code = 789-8) See_Comment L [Au tomated message] The system [employer] generated this result transmit sue reference range [...] 777-3) See_Comment [Au tomated message] The system [employer] generated this result transmit sue reference range : 166 - 358 10*3/?L. The reference range was not used to interpret this result as normal/abnormal . MPV (test code = 10.6 fL 9.5-12.9 45288-7) RDW-CV (test code = 15.3 % 12-15.5 788-0) RDW-SD (test code = 49.2 fL 39-49.9 25736-6) NRBC x10^3 (test code = See_Comment [Au tomated message] 4139685464) The system [employer] generated this result transmit sue reference range : 10*3/?L. The reference range was not used to interpret this result as normal/abnormal . NRBC/100 WBC (test code See_Comment [Au tomated message] = 8956890573) The system [employer] generated this result transmit sue reference range : 0.0 - 10.0 /100 WBC s. The reference r hugo was not used to interpret this result as normal/abnormal . IPF % (test code = 8068034758) Lab Interpretation (test Abnormal code = 40146-7) [facility] METABOLIC PANEL (NA, K, CL, CO2, GLUCOSE, BUN, CREATININE, CA)2021-10-04 09:59:51 Test Item Value Reference Range Interpretation Comments NA (test code = 139 mmol/L 135-145 9539150033) K (test code = 4.6 mmol/L 3.5-5 Slight 3164266819) hemolysis CL (test code = 112 mmol/L 98-108 H 9553508904) CO2 TOTAL (test code 22 mmol/L 23-31 L = 3798962827) AGAP (test code = 2-16 5383034992) BUN (test code = 5 mg/dL 7-23 L Slight 8400102342) hemolysis GLUCOSE (test code = 101 mg/dL 70-110 1790347885) CREATININE (test code 0.69 mg/dL 0.5-1.04 = 2112532707) CALCIUM (test code = 8.5 mg/dL 8.6-10.6 L 2436719401) eGFR (test code = mL/min/1.73m2 0439491062) OMARI (test code = OMARI) Association of [...] tests). Lab Interpretation Abnormal (test code = 88207-2) [facility]MAGNESIUM2022-07-22 09:59:51 Test Item Value Reference Range Interpretation Comments MAGNESIUM (test code = 6378737218) 2.0 mg/dL 1.7-2.4 Lab Interpretation (test code = Normal 89818-2) [facility]ound[facility] Metabolic Panel (NA, K, CL, CO2, Glucose, BUN, Creatinine, CA)2021-10-03 13:13:02 Test Item Value Reference Range Interpretation Comments NA (test code = 143 mmol/L 135-145 1799684255) K (test code = 4.1 mmol/L 3.5-5 9052517423) CL (test code = 112 mmol/L 98-108 H 1412295565) CO2 TOTAL (test code = 21 mmol/L 23-31 L 3663418607) AGAP (test code = 2-16 1296752874) BUN (test code = 3 mg/dL 7-23 L 3607450178) GLUCOSE (test code = 114 mg/dL 70-110 H 9439422651) CREATININE (test code = 0.69 mg/dL 0.5-1.04 1705484135) CALCIUM (test code = 9.4 mg/dL 8.6-10.6 3912401576) eGFR (test code = mL/min/1.73m2 3803669223) OMARI (test code = OMARI) Association of [...] tests). Lab Interpretation Abnormal (test code = 41528-9) [facility]ound[facility]esium [id number] 13:13:02 Test Item Value Reference Range Interpretation Comments MAGNESIUM (test code = 4937075631) 2.1 mg/dL 1.7-2.4 Lab Interpretation (test code = Normal 20278-9) [facility]oundPhosphorus [id number] 13:13:02 Test Item Value Reference Range Interpretation Comments PHOSPHORUS (test code = 9355268825) 3.3 mg/dL 2.5-5 Lab Interpretation (test code = Normal 46858-2) [facility]oundHepatic Function Panel (ALB, T.PRO, BILI T, BU/BC, ALT, AST, ALK, PHOS)2021-10-03 13:13:02 Test Item Value Reference Range Interpretation Comments TOTAL BILI (test code = 4256359283) 0.2 mg/dL 0.1-1.1 BILI UNCON (test code = 8855287740) 0.3 mg/dL 0.1-1.1 BILI CONJ (test code = 9974113105) 0.0 mg/dL 0-0.3 T PROTEIN (test code = 4045916505) 7.3 g/dL 6.3-8.2 ALBUMIN (test code = 2897614875) 4.1 g/dL 3.5-5 ALK PHOS (test code = 5729636898) 108 U/L 34-122 ALTv (test code = 1742-6) 20 U/L 5-35 AST(SGOT) (test code = 8662462707) 49 U/L 13-40 H Lab Interpretation (test code = Abnormal 31851-1) [facility]oundCBC with [id number] 12:10:39 Test Item Value Reference Range Interpretation Comments WBC (test code = See_Comment [Automated 0739-2) message] The sy stem which generated this result transmitted reference range : 4.30 - 11.10 10*3/?L. The reference range was not used to interpret this result as normal/abnormal . RBC (test code = See_Comment [Automated 656-8) message] The sy stem which generated this [...] RDW-SD (test code = 49.3 fL 39-49.9 37844-4) RDW-CV (test code = 15.8 % 12-15.5 H 788-0) PLT (test code = See_Comment [Automated 777-3) message] The sy stem which generated this result transmitted reference range : 166 - 358 10*3/ ?L. The reference r hugo was not used to interpret this result as normal/abnormal . MPV (test code = 10.1 fL 9.5-12.9 80294-3) NRBC/100 WBC (test See_Comment [Automat ed code = 1336716551) message] The system which generated this result transmitted reference range : 0.0 - 10.0 /100 WBCs. The refer ence range was not u sed to interpret th is result as normal/abnormal . NRBC x10^3 (test code See_Comment [Auto mated = 3884897355) message] The s ystem which generated this result transmitted reference range : 10*3/?L. The reference range was not used to interpret this result as normal/abnormal . GRAN MAT (NEUT) % 62.3 % (test code = 770-8) IMM GRAN % (test code 0.70 % = 6100980581) LYMPH % (test code = 29.5 % 736-9) MONO % (test code = 6.8 % 5905-5) EOS % (test code = 0.4 % 713-8) BASO % (test code = 0.3 % 706-2) GRAN MAT x10^3(ANC) 4.65 10*3/uL 1.88-7.09 (test code = 1092196462) IMM GRAN x10^3 (test 0.05 10*3/uL 0-0.06 code = 4518709066) LYMPH x10^3 (test code 2.20 10*3/uL 1.32-3.29 = 731-0) MONO x10^3 (test code 0.51 10*3/uL 0.33-0.92 = 742-7) EOS x10^3 (test code = 0.03 10*3/uL 0.03-0.39 711-2) BASO x10^3 (test code 0.01-0.07 = 704-7) Lab Interpretation Abnormal (test code = 63231-5) [facility] Panel 20 + Lactic [id number] 11:34:16 Test Item Value Reference Range Interpretation Comments PH (test code = 2) 7.35-7.45 PCO2 (test code = See_Comment L [Automate d 6429525995) message] The sy stem which generated this result transmitted reference range : 35 - 45 mmHg. The reference range was not used to interpret this result as normal/abnormal . PO2 (test code = See_Comment H [Automated 9056842964) message] The sy stem which generated this result transmitted reference range : 80 - 100 mmHg. The reference range was not used to interpret this result as normal/abnormal . HCO3 (test code = See_Comment L [Automate d 3126406312) message] The sy stem which generated this result transmitted reference range : 22 - 26 mEq/L. The reference range was not used to interpret this result as normal/abnormal . BE (test code = See_Comment L [Automated 6297705155) message] The sy stem which generated this result transmitted reference range : -3.0 - 3.0 mEq/ L. The reference r hugo was not used to interpret this result as normal/abnormal . THB (test code = 12.3 g/dL 12-16 3237416789) %O2HB (test code = 99.1 % 94-99 H 7141321515) %COHB ART (test code = 0.0 % 0-1.5 0061360313) %METHB ART (test code = 0.1 % 0.4-1.5 L 2025614039) VOL%O2 ART (test code = 17.5 % 15-23 6812606537) NA (test code = 141 mmol/L 135-145 0049316173) K+ (test code = 4.0 mmol/L 3.5-5 7305973202) AC CA IONZ (test code = 4.70 mg/dL 4.5-5.3 0115570876) GLUCOSE (test code = 102 mg/dL 70-110 9760679933) LACTIC ACID (test code 2.28 mmol/L 0.5-2.2 H = 9206473910) Lab Interpretation Abnormal (test code = 47620-8) [facility] WITH [id number] 05:44:57 Test Item Value Reference Range Interpretation [...] (test code = 50.4 fL 39-49.9 H 69886-6) RDW-CV (test code = 15.7 % 12-15.5 H 788-0) PLT (test code = See_Comment [Automated 777-3) message] The sy stem which generated this result transmitted reference range : 166 - 358 10*3/ ?L. The reference r hugo was not used to interpret this result as normal/abnormal . MPV (test code = 10.3 fL 9.5-12.9 03735-5) IPF % (test code = 4.1 % 1.3-7.7 Platelet count 8531277363) measured by fluorescence method. NRBC/100 WBC (test See_Comment [Automat ed code = 9727209399) message] The system which generated this result transmitted reference range : 0.0 - 10.0 /100 WBCs. The refer ence range was not u sed to interpret th is result as normal/abnormal . NRBC x10^3 (test code See_Comment [Auto mated = 5828332791) message] The s ystem which generated this result transmitted reference range : 10*3/?L. The reference range was not used to interpret this result as normal/abnormal . GRAN MAT (NEUT) % 68.8 % (test code = 770-8) IMM GRAN % (test code 1.00 % = 4928809648) LYMPH % (test code = 21.6 % 736-9) MONO % (test code = 7.7 % 5905-5) EOS % (test code = 0.6 % 713-8) BASO % (test code = 0.3 % 706-2) GRAN MAT x10^3(ANC) 7.31 10*3/uL 1.88-7.09 H (test code = 7585012821) IMM GRAN x10^3 (test 0.11 10*3/uL 0-0.06 H code = 4849484307) LYMPH x10^3 (test code 2.29 10*3/uL 1.32-3.29 = 731-0) MONO x10^3 (test code 0.82 10*3/uL 0.33-0.92 = 742-7) EOS x10^3 (test code = 0.06 10*3/uL 0.03-0.39 711-2) BASO x10^3 (test code 0.03 10*3/uL 0.01-0.07 = 704-7) PLT ESTIMATE (test Normal Normal code = 9317-9) Lab Interpretation Abnormal (test code = 52424-0) [facility]ETAMINOPHEN2022-07-21 05:24:02 Test Item Value Reference Range Interpretation Comments ACETAMINOP (test code = 10-30 L 3813699022) OMARI (test code = OMARI) Toxic: Greater than 200 ug/mL @ 4 hour post ingestion or greater than 50 ug/mL @ 12 hour post ingestion Lab Interpretation (test Abnormal code = 16582-6) [facility]ANOL2022-07-21 05:23:47 Test Item Value Reference Range Interpretation Comments ALCOHOL (test code = 157 mg/dL 1239096669) OMARI (test code = OMARI) <10 Mylkajkz57-482 Toxic>100 Depression of HSE MANAGER>400 Fatalities Reported [facility] MoundSALICYLATE2022-07-21 05:23:22 SALICYLATE<10mg/L10/03/2021 12:23 AM [facility]ORYTherapeutic Range: ? Analgesic and Antipyretic Use ? 20- 100 mg/L ? ? Anti-Inflammatory Use ? 100-250 mg/L Toxic Range: ? Greater than 300 mg/LUnAdventHealth Rollins BrookCOMP. METABOLIC PANEL (19694)2021-10-03 05:23:07 Test Item Value Reference Range Interpretation Comments NA (test code = 140 mmol/L 135-145 7422689973) K (test code = 4.3 mmol/L 3.5-5 5251607266) CL (test code = 105 mmol/L 98-108 8552909362) CO2 TOTAL (test code = 19 mmol/L 23-31 L 8086257334) AGAP (test code = 2-16 9610594262) BUN (test code = 3 mg/dL 7-23 L 7846606589) GLUCOSE (test code = 110 mg/dL 70-110 0273273638) CREATININE (test code = 0.72 mg/dL 0.5-1.04 0575238888) TOTAL BILI (test code = 0.5 mg/dL 0.1-1.4 2895820103) CALCIUM (test code = 8.9 mg/dL 8.6-10.6 1663047788) T PROTEIN (test code = 7.7 g/dL 6.3-8.2 3112826134) ALBUMIN (test code = 4.4 g/dL 3.5-5 6686574949) ALK PHOS (test code = 111 U/L 34-122 8758864046) ALTv (test code = 22 U/L 5-35 1742-6) AST(SGOT) (test code = 35 U/L 13-40 4085915661) eGFR (test code = mL/min/1.73m2 3449740077) OMARI (test code = OMARI) Association of [...] tests). Lab Interpretation Abnormal (test code = 23991-3) [facility] [id number] 05:22:46 Test Item Value Reference Range Interpretation Comments CK (test code = 2058153944) 562 U/L 33-194 H Lab Interpretation (test code = Abnormal 37535-0) [facility], [id number] 05:20:36 Test Item Value Reference Range Interpretation Comments PREG SERUM (test code Negative = 1050977452) OMARI (test code = OMARI) Less than 10 IU/L. ?If low titer or ectopic is suspected, resubmit specimen in 48-72 hours. [facility] [id number] 04:53:00 Test Item Value Reference Range Interpretation Comments POCT PREG (test code = 1605) negative On board controls acceptable with positive C Line (test code = 3574) POCT PREG LOT # (test code = 3575) [id number] POCT PREG TEST DATE (test 01/13/2023 code = 3576) Lab Interpretation (test code = Normal 51174-3) [facility]HCG, [id number] 05:46:32 Test Item Value Reference Range Interpretation Comments HCG, QUANTITATIVE 176 MIU/ML SEE BELOW E XPECTED (test code = 2506) VALUES FO R HCG GST.AGE UNITS RANGE GST. AGE UNITS RANGE3 WEEKS CA U/ML 6-71 10 WEEKS M IU/ML [phone] [...] . . . . . M IU/ML 7-2DFQC-QRPGGTZ ADEN FEMALES . . . . . . . . . . . . MIU/M L <=7 UNLESS OTHERWIS E INDICATED, ALL TESTING PERFORMED [facility], [facility]. [address] [place] [address] [facility] DIRECTOR: LIBRADO ARCEO M.D. CLIA NUMBER [id number] CAP ACCREDITATION N O. [id number] HCG, [id number] 00:00:00 Test Item Value Reference Range Interpretation Comments HCG, QUANTITATIVE (test code = 176 MIU/ML 2506) HCG, [id number] 00:00:00 Test Item Value Reference Range Interpretation Comments HCG, QUANTITATIVE (test code = 176 MIU/ML 2506) HCG, [id number] 00:00:00 Test Item Value Reference Range Interpretation Comments HCG, QUANTITATIVE (test code = 176 MIU/ML 2506) HCG, [id number] 00:00:00 Test Item Value Reference Range Interpretation Comments HCG, QUANTITATIVE (test code = 176 MIU/ML 2506) HCG, [id number] 00:00:00 Test Item Value Reference Range Interpretation Comments HCG, QUANTITATIVE (test code = 176 MIU/ML 2506) HCG, [id number] 00:00:00 Test Item Value Reference Range Interpretation Comments HCG, QUANTITATIVE (test code = 176 MIU/ML 2506) XR CHEST 1 [id number] 03:41:35No acute pulmonary disease. RL: ?3201 History: [...] recesses are clear.IMPRESSIONNo acute pulmonary disease.RL: [phone] (ID NOW RAPID TESTING)2020-09-12 02:28:09 Test Item Value Reference Range Interpretation Comments SARS-CoV-2 Rapid ID NOW Not Detected Not Detected (test code = 66045-1) OMARI (test code = OMARI) ID NOW COVID-19 Assay is an isothermal nucleic acid amplification test intended for the qualitative detection of nucleic acid from SARS-CoV-2 viral RNA in nasopharyngeal (SENIOR FINANCIAL) specimens. It is used under Emergency Use [...] indicated. Lab Interpretation Normal (test code = 51283-1) [facility] [id number] 02:09:00 Test Item Value Reference Range Interpretation Comments POCT PREG (test code = 1605) negative On board controls acceptable with present C Line (test code = 3574) POCT PREG LOT # (test code = 3575) [id number] POCT PREG TEST DATE (test 03/15/2022 code = 3576) Lab Interpretation (test code = Normal 19563-3) [facility] [id number] 20:23:00 Test Item Value Reference Range Interpretation Comments POCT PREG (test code = 1605) Negative On board controls acceptable with C Yes Line (test code = 3574) POCT PREG LOT # (test code = 3575) POCT PREG TEST DATE (test code = 3576) [facility] [id number] 20:23:00 Test Item Value Reference Range Interpretation Comments POCT PREG (test code = 1605) Negative On board controls acceptable with C Yes Line (test code = 3574) POCT PREG LOT # (test code = 3575) POCT PREG TEST DATE (test code = 3576) [facility] WITH [id number] 10:36:00 Test Item Value Reference Range Interpretation [...] RDW-SD (test code = 42.5 fL 39-49.9 36904-2) RDW-CV (test code = 12.1 % 12-15.5 788-0) PLT (test code = See_Comment L [Automated 777-3) message] The sy stem which generated this result transmitted reference range : 166 - 358 10*3/ ?L. The reference r huog was not used to interpret this result as normal/abnormal . MPV (test code = 10.4 fL 9.5-12.9 92456-0) NRBC/100 WBC (test See_Comment [Automat ed code = 6973221654) message] The system which generated this result transmitted reference range : 0.0 - 10.0 /100 WBCs. The refer ence range was not u sed to interpret th is result as normal/abnormal . NRBC x10^3 (test code <0.01 See_Comment [Auto mated = 0906211734) message] The s ystem which generated this result transmitted reference range : 10*3/?L. The reference range was not used to interpret this result as normal/abnormal . GRAN MAT (NEUT) % 64.8 % (test code = 770-8) IMM GRAN % (test code 0.80 % = 9106040143) LYMPH % (test code = 22.6 % 736-9) MONO % (test code = 10.4 % 5905-5) EOS % (test code = 1.1 % 713-8) BASO % (test code = 0.3 % 706-2) GRAN MAT x10^3(ANC) 7.01 10*3/uL 1.88-7.09 (test code = 3273055782) IMM GRAN x10^3 (test 0.09 10*3/uL 0-0.06 H code = 7142764751) LYMPH x10^3 (test code 2.45 10*3/uL 1.32-3.29 = 731-0) MONO x10^3 (test code 1.12 10*3/uL 0.33-0.92 H = 742-7) EOS x10^3 (test code = 0.12 10*3/uL 0.03-0.39 711-2) BASO x10^3 (test code 0.03 10*3/uL 0.01-0.07 = 704-7) Lab Interpretation Abnormal (test code = 80241-2) [facility] ([facility]) IMMUNE [id number] 03:46:32 Test Item Value Reference Range Interpretation Comments RHIG CANDIDATE? No- see comment Patient i s not a (test code = candidate for R hIg- 5055) Patient is Rh Positive.Perfor med at [facility] Laboratory Services - [facility] Blood [address] [place], [place] [address]Toll Free: [phone] A No. [id number] [facility]oundAD OR IVETH ONLY - [id number] 01:33:00 Test Item Value Reference Range Interpretation Comments RPR (Qualitative) (test code = Nonreactive Nonreactive 69823-2) Lab Interpretation (test code = Normal 47820-3) [facility]oundVenous Cord [id number] 23:57:00 Test Item Value Reference Range Interpretation Comments VENOUS BASE EXCESS, mEq/L CORD (test code = 3651122704) VENOUS PH, CORD (test 7.25-7.45 code = 0133488422) VENOUS PC02, CORD See_Comment [Automate d message] The (test code = system which ge nerated 9592333910) this result tra nsmitted reference range : 27 - 49 mmHg. The refer ence range was not used to interpret this result as normal/abnormal . VENOUS PO2, CORD (test See_Comment [Aut omated message] The code = 0545547600) system [facility] generated this result tra nsmitted reference range : 17 - 41 mmHg. The refer ence range was not used to interpret this result as normal/abnormal . VENOUS BICARBONATE, See_Comment [Automa sue message] The CORD (test code = system whi ch generated 4853055996) this result tra nsmitted reference range : 12 - 29 mEq/L. The refe rence range was not used to interpret this result as normal/abnormal . [facility]oundHepatitis B Surface [id number] 21:34:00 Test Item Value Reference Range Interpretation Comments HBsAg Semi-Quantitative (test code = Negative Negative 5195-3) [facility]oundHIV 1/2 AG-AB WITH [id number] 19:45:00 Test Item Value Reference Range Interpretation Comments HIV Negative Negative Semi-quantitative (test code = 35621-2) OMARI (test code = Non-reactive for HIV-1 OMARI) antigen and HIV-1/HIV-2 antibodies. ?No laboratory evidence of HIV infection. ?Repeat in 2-4 weeks if acute HIV infection is suspected. [facility]oundType and Screen - ONCE [id number] 18:48:31 Test Item Value Reference Range Interpretation Comments ABO & RH (test code O Positive Performe d at [facility] = 20) Laboratory Serv [facility] Blood Bank[address] [place], [place] [address]Toll Free: [phone] A No. [id number] IAT (test code = Negative Performed a t [facility] 1185) Laboratory Serv [facility] Blood [facility] [place], [place] [address]Toll Free: [phone] A No. [id number] [facility]oundCBC WITH [id number] 18:12:00 Test Item Value Reference Range Interpretation [...] RDW-SD (test code = 43.8 fL 39-49.9 97711-9) RDW-CV (test code = 12.4 % 12-15.5 788-0) PLT (test code = See_Comment L [Automated 777-3) message] The sy stem which generated this result transmitted reference range : 166 - 358 10*3/ ?L. The reference r hugo was not used to interpret this result as normal/abnormal . MPV (test code = 10.2 fL 9.5-12.9 48235-3) NRBC/100 WBC (test See_Comment [Automat ed code = 2394830371) message] The system which generated this result transmitted reference range : 0.0 - 10.0 /100 WBCs. The refer ence range was not u sed to interpret th is result as normal/abnormal . NRBC x10^3 (test code <0.01 See_Comment [Auto mated = 2362419737) message] The s ystem which generated this result transmitted reference range : 10*3/?L. The reference range was not used to interpret this result as normal/abnormal . GRAN MAT (NEUT) % 65.8 % (test code = 770-8) IMM GRAN % (test code 1.00 % = 8526350765) LYMPH % (test code = 22.2 % 736-9) MONO % (test code = 9.6 % 5905-5) EOS % (test code = 1.1 % 713-8) BASO % (test code = 0.3 % 706-2) GRAN MAT x10^3(ANC) 4.13 10*3/uL 1.88-7.09 (test code = 8504291169) IMM GRAN x10^3 (test 0.06 10*3/uL 0-0.06 code = 1934135130) LYMPH x10^3 (test code 1.39 10*3/uL 1.32-3.29 = 731-0) MONO x10^3 (test code 0.60 10*3/uL 0.33-0.92 = 742-7) EOS x10^3 (test code = 0.07 10*3/uL 0.03-0.39 711-2) BASO x10^3 (test code <0.03 0.01-0.07 = 704-7) Lab Interpretation Abnormal (test code = 85031-0) [facility] [id number] 19:45:00 Test Item Value Reference Range Interpretation Comments POCT PREG (test code = 1605) Positive On board controls acceptable with C Yes Line (test code = 3574) POCT PREG LOT # (test code = 3575) POCT PREG TEST DATE (test code = 3576) [facility] URINALYSIS W/O SPECIFIC [id number] 19:45:00 Test Item Value Reference Range Interpretation [...] code = 3257) neg Negative - Negative [facility] W/AUTO [id number] 20:53:00 Test Item Value Reference Range Interpretation [...] 0.0 x10 3/uL 0.0-0.1 N BASIC METABOLIC [id number] 20:11:00 Test Item Value Reference Range Interpretation [...] mg/dL 8.5-10.5 N = CA) LIVER FUNCTION [id number] 20:11:00 Test Item Value Reference Range Interpretation [...] code = 46 U/L 42-121 N ALKP) [id number] 20:11:00 Test Item Value Reference Range Interpretation Comments ALCOHOL (test code = 6 mg/dl Interpr etive Data:il: ALC) Ethanol Level T o convert into legal unit s, divide result by 1,000 DRUGS OF ABUSE SCREEN [id number] 19:58:00 Test Item Value Reference Range Interpretation [...] ng/mLRecommende d screening cut-o ff concentrations by [facility] use and [facility]. UR CANABINOIDS (test POSITIVE NEGATIVE A This is a toxicology code = CANU) qualitative scr eening test only. Ifco nfirmatory testing is maxime red please request drug screenconfirmat ion. These results are unc onfirmed and should beus ed only for medical pur poses. Cut-off concent ration for THC is 50 ng/mLRecommende d screening cut-o ff concentrations by thebstance Ab use and Mental [facility] S [facility] Administration. UR AMPHETAMINE (test POSITIVE NEGATIVE A The ing estion of natural code = AMPHU) herbal and bryce nt productscontain ing Ephedra/Ephedra -Metabolit es can produce in urineone or mor e substances capa ble of cross-reacting withAmphetamine /Methamphe tamine immunoas says. This testprovides a preliminary res ult [...] concentrations by thebstance Ab use and Mental [facility] S erv[facility] Administration. UR BARBITURATE (test NEGATIVE NEGATIVE This is a toxicology code = BARBQLU) qualitative screening test only. Ifco nfirmatory testing is maxime red please request drug screenconfirmat ion. These results are unc onfirmed and should beus ed only for medical pur poses. Cut-off concent ration for Barbiturates is 200 ng/mLRecommende d screening cut-o ff concentrations by thebstance Ab use and Mental [facility] S [facility] Administration. UR BENZODIAZEPINE [...] and Mental Health S ervices Administration. UR OPIATES QUAL (test NEGATIVE NEGATIVE This i s a toxicology code = OPIAQLU) qualitative screening test only. Ifco nfirmatory testing is maxime red please request drug screenconfirmat ion. These results are unc onfirmed and should beus ed only for medical pur poses. Cut-off concent ration for Opiates is 300 ng/mLRecommende d screening cut-o ff concentrations by [facility] Ab use and [facility]. UR PHENCYCLIDINE NEGATIVE NEGATIVE This is a t oxicology (PCP) (test code = qualitati ve screening PHENCU) test only. Ifco nfirmatory testing is maxime red please request drug screenconfirmat ion. These results are unc onfirmed and should beus ed only for medical pur poses. Cut-off concent ration for PCP is 25 ng/mLRecommende d screening cut-o ff concentrations by [facility] Ab use and [facility]. HCG SERUM [id number] 19:53:00 Test Item Value Reference Range Interpretation Comments HCG SERUM QUAL POSITIVE NEGATIVE This is a makayla litative (test code = HCGQL) screenin g test.The quantitative Bh cg may be helpful.Weakly positive results should be repeated in 48 hours. URINALYSIS [id number] 19:50:00 Test Item Value Reference Range Interpretation [...] = MUCU) 1+ /LPF NONE SEEN MOLECULAR [id number] 15:53:00 Test Item Value Reference Range Interpretation Comments N gonorrhea by Amp Det Negative *NA*(01/06/17 (APTIMA) (test code = N 10:53 AM) gonorrhea by Amp Det (APTIMA)) [facility] [id number] 15:53:00 Test Item Value Reference Range Interpretation Comments Source APTIMA (test Urine *NA*(01/06/17 code = Source APTIMA) 10:53 AM) [facility] [id number] 15:53:00 Test Item Value Reference Range Interpretation Comments C trachomatis by Amp Det Negative (APTIMA) (test code = C *NA*(01/06/17 10:53 trachomatis by Amp Det AM) (APTIMA)) [facility] [id number] 15:53:00 Test Item Value Reference Range Interpretation Comments UA Bacteria (test code = UA Few /HPF Bacteria) [facility] [id number] 15:53:00 Test Item Value Reference Range Interpretation Comments UA RBC (test code = 0-2 /HPF See_Comment [Automa sue message] The UA RBC) system which ge nerated this result tra nsmitted reference range : <=2. The reference range was not used to interpr et this result as kaelyn l/abnormal. [facility] [id number] 15:53:00 Test Item Value Reference Range Interpretation Comments UA WBC (test code = UA WBC) 0-2 /HPF [facility] [id number] 15:53:00 Test Item Value Reference Range Interpretation Comments UA Sq Epi (test code = UA Sq Epi) Few /LPF [facility] [id number] 15:53:00 Test Item Value Reference Range Interpretation Comments UA Leuk Est (test Negative (01/06/17 10:53 code = UA Leuk Est) AM) [facility] [id number] 15:53:00 Test Item Value Reference Range Interpretation Comments UA Blood (test code = Trace *ABN*(01/06/17 UA Blood) 10:53 AM) [facility] [id number] 15:53:00 Test Item Value Reference Range Interpretation Comments UA Bili (test code = Negative *NA*(01/06/17 UA Bili) 10:53 AM) [facility] [id number] 15:53:00 Test Item Value Reference Range Interpretation Comments UA Protein (test code Negative (01/06/17 = UA Protein) 10:53 AM) [facility] [id number] 15:53:00 Test Item Value Reference Range Interpretation Comments UA Ketones (test code Negative *NA*(01/06/17 = UA Ketones) 10:53 AM) [facility] [id number] 15:53:00 Test Item Value Reference Range Interpretation Comments UA Glucose (test code Negative (01/06/17 = UA Glucose) 10:53 AM) [facility] [id number] 15:53:00 Test Item Value Reference Range Interpretation Comments UA Spec Grav (test code = UA Spec 1.015 1 Grav) [facility] AND [id number] 15:53:00 Test Item Value Reference Range Interpretation Comments UA pH (test code = UA pH) 7.0 1 5.0-8.0 [facility] [id number] 15:53:00 Test Item Value Reference Range Interpretation Comments UA Turbidity (test code = Clear (01/06/17 UA Turbidity) 10:53 AM) [facility] [id number] 15:53:00 Test Item Value Reference Range Interpretation Comments UA Color (test code = Yellow *NA*(01/06/17 UA Color) 10:53 AM) [facility] [id number] 15:53:00 Test Item Value Reference Range Interpretation Comments Micro? (test code = Performed (01/06/17 10:53 Micro?) AM) [facility] [id number] 15:53:00 Test Item Value Reference Range Interpretation Comments UA Nitrite (test code Negative (01/06/17 = UA Nitrite) 10:53 AM) [facility] [id number] 15:53:00 Test Item Value Reference Range Interpretation Comments UA Urobilinogen (test code = UA 1.0 0.1-1.0 Urobilinogen) [facility] [id number] 15:53:00 Test Item Value Reference Range Interpretation Comments U Creatinine (test code = U 125.00 Creatinine) [facility] [id number] 15:53:00 Test Item Value Reference Range Interpretation Comments U Prot/Creat (test code = U Prot/Creat) 0.2 [facility] [id number] 15:53:00 Test Item Value Reference Range Interpretation Comments U Protein (test code = U Protein) 19.2 [facility] [id number] 15:53:00 Test Item Value Reference Range Interpretation Comments N gonorrhea by Amp Det Negative *NA*(01/06/17 (APTIMA) (test code = N 10:53 AM) gonorrhea by Amp Det (APTIMA)) [facility] [id number] 15:53:00 Test Item Value Reference Range Interpretation Comments Source APTIMA (test Urine *NA*(01/06/17 code = Source APTIMA) 10:53 AM) [facility] [id number] 15:53:00 Test Item Value Reference Range Interpretation Comments C trachomatis by Amp Det Negative (APTIMA) (test code = C *NA*(01/06/17 10:53 trachomatis by Amp Det AM) (APTIMA)) [facility] AND [id number] 15:53:00 Test Item Value Reference Range Interpretation Comments UA Bacteria (test code = UA Few /HPF Bacteria) [facility] AND [id number] 15:53:00 Test Item Value Reference Range Interpretation Comments UA RBC (test code = 0-2 /HPF See_Comment [Automa sue message] The UA RBC) system which ge nerated this result tra nsmitted reference range : <=2. The reference range was not used to interpr et this result as kaelyn l/abnormal. [facility] AND [id number] 15:53:00 Test Item Value Reference Range Interpretation Comments UA WBC (test code = UA WBC) 0-2 /HPF [facility] AND [id number] 15:53:00 Test Item Value Reference Range Interpretation Comments UA Sq Epi (test code = UA Sq Epi) Few /LPF [facility] AND [id number] 15:53:00 Test Item Value Reference Range Interpretation Comments UA Leuk Est (test Negative (01/06/17 10:53 code = UA Leuk Est) AM) [facility] AND [id number] 15:53:00 Test Item Value Reference Range Interpretation Comments UA Blood (test code = Trace *ABN*(01/06/17 UA Blood) 10:53 AM) [facility] AND [id number] 15:53:00 Test Item Value Reference Range Interpretation Comments UA Bili (test code = Negative *NA*(01/06/17 UA Bili) 10:53 AM) [facility] AND [id number] 15:53:00 Test Item Value Reference Range Interpretation Comments UA Protein (test code Negative (01/06/17 = UA Protein) 10:53 AM) [facility] AND [id number] 15:53:00 Test Item Value Reference Range Interpretation Comments UA Ketones (test code Negative *NA*(01/06/17 = UA Ketones) 10:53 AM) [facility] AND [id number] 15:53:00 Test Item Value Reference Range Interpretation Comments UA Glucose (test code Negative (01/06/17 = UA Glucose) 10:53 AM) [facility] AND [id number] 15:53:00 Test Item Value Reference Range Interpretation Comments UA Spec Grav (test code = UA Spec 1.015 1 Grav) [facility] AND [id number] 15:53:00 Test Item Value Reference Range Interpretation Comments UA pH (test code = UA pH) 7.0 1 5.0-8.0 [facility] AND [id number] 15:53:00 Test Item Value Reference Range Interpretation Comments UA Turbidity (test code = Clear (01/06/17 UA Turbidity) 10:53 AM) [facility] AND [id number] 15:53:00 Test Item Value Reference Range Interpretation Comments UA Color (test code = Yellow *NA*(01/06/17 UA Color) 10:53 AM) [facility] AND [id number] 15:53:00 Test Item Value Reference Range Interpretation Comments Micro? (test code = Performed (01/06/17 10:53 Micro?) AM) [facility] AND [id number] 15:53:00 Test Item Value Reference Range Interpretation Comments UA Nitrite (test code Negative (01/06/17 = UA Nitrite) 10:53 AM) [facility] AND [id number] 15:53:00 Test Item Value Reference Range Interpretation Comments UA Urobilinogen (test code = UA 1.0 0.1-1.0 Urobilinogen) [facility] [id number] 15:53:00 Test Item Value Reference Range Interpretation Comments U Creatinine (test code = U 125.00 Creatinine) [facility] [id number] 15:53:00 Test Item Value Reference Range Interpretation Comments U Prot/Creat (test code = U Prot/Creat) 0.2 [facility] [id number] 15:53:00 Test Item Value Reference Range Interpretation Comments U Protein (test code = U Protein) 19.2 [facility] [id number] 15:53:00 Test Item Value Reference Range Interpretation Comments N gonorrhea by Amp Det Negative *NA*(01/06/17 (APTIMA) (test code = N 10:53 AM) gonorrhea by Amp Det (APTIMA)) [facility] [id number] 15:53:00 Test Item Value Reference Range Interpretation Comments Source APTIMA (test Urine *NA*(01/06/17 code = Source APTIMA) 10:53 AM) [facility] [id number] 15:53:00 Test Item Value Reference Range Interpretation Comments C trachomatis by Amp Det Negative (APTIMA) (test code = C *NA*(01/06/17 10:53 trachomatis by Amp Det AM) (APTIMA)) [facility] AND [id number] 15:53:00 Test Item Value Reference Range Interpretation Comments UA Bacteria (test code = UA Few /HPF Bacteria) [facility] AND [id number] 15:53:00 Test Item Value Reference Range Interpretation Comments UA RBC (test code = 0-2 /HPF See_Comment [Automa sue message] The UA RBC) system which ge nerated this result tra nsmitted reference range : <=2. The reference range was not used to interpr et this result as kaelyn l/abnormal. [facility] AND [id number] 15:53:00 Test Item Value Reference Range Interpretation Comments UA WBC (test code = UA WBC) 0-2 /HPF [facility] AND [id number] 15:53:00 Test Item Value Reference Range Interpretation Comments UA Sq Epi (test code = UA Sq Epi) Few /LPF [facility] AND [id number] 15:53:00 Test Item Value Reference Range Interpretation Comments UA Leuk Est (test Negative (01/06/17 10:53 code = UA Leuk Est) AM) [facility] AND [id number] 15:53:00 Test Item Value Reference Range Interpretation Comments UA Blood (test code = Trace *ABN*(01/06/17 UA Blood) 10:53 AM) [facility] AND [id number] 15:53:00 Test Item Value Reference Range Interpretation Comments UA Bili (test code = Negative *NA*(01/06/17 UA Bili) 10:53 AM) [facility] AND [id number] 15:53:00 Test Item Value Reference Range Interpretation Comments UA Protein (test code Negative (01/06/17 = UA Protein) 10:53 AM) [facility] AND [id number] 15:53:00 Test Item Value Reference Range Interpretation Comments UA Ketones (test code Negative *NA*(01/06/17 = UA Ketones) 10:53 AM) [facility] AND [id number] 15:53:00 Test Item Value Reference Range Interpretation Comments UA Glucose (test code Negative (01/06/17 = UA Glucose) 10:53 AM) [facility] AND [id number] 15:53:00 Test Item Value Reference Range Interpretation Comments UA Spec Grav (test code = UA Spec 1.015 1 Grav) [facility] AND [id number] 15:53:00 Test Item Value Reference Range Interpretation Comments UA pH (test code = UA pH) 7.0 1 5.0-8.0 [facility] AND [id number] 15:53:00 Test Item Value Reference Range Interpretation Comments UA Turbidity (test code = Clear (01/06/17 UA Turbidity) 10:53 AM) [facility] [id number] 15:53:00 Test Item Value Reference Range Interpretation Comments UA Color (test code = Yellow *NA*(01/06/17 UA Color) 10:53 AM) [facility] [id number] 15:53:00 Test Item Value Reference Range Interpretation Comments Micro? (test code = Performed (01/06/17 10:53 Micro?) AM) [facility] [id number] 15:53:00 Test Item Value Reference Range Interpretation Comments UA Nitrite (test code Negative (01/06/17 = UA Nitrite) 10:53 AM) [facility] [id number] 15:53:00 Test Item Value Reference Range Interpretation Comments UA Urobilinogen (test code = UA 1.0 0.1-1.0 Urobilinogen) [facility] [id number] 15:53:00 Test Item Value Reference Range Interpretation Comments U Creatinine (test code = U 125.00 Creatinine) [facility] [id number] 15:53:00 Test Item Value Reference Range Interpretation Comments U Prot/Creat (test code = U Prot/Creat) 0.2 [facility] [id number] 15:53:00 Test Item Value Reference Range Interpretation Comments U Protein (test code = U Protein) 19.2 [facility] [id number] 15:53:00 Test Item Value Reference Range Interpretation Comments N gonorrhea by Amp Det Negative *NA*(01/06/17 (APTIMA) (test code = N 10:53 AM) gonorrhea by Amp Det (APTIMA)) [facility] [id number] 15:53:00 Test Item Value Reference Range Interpretation Comments Source APTIMA (test Urine *NA*(01/06/17 code = Source APTIMA) 10:53 AM) [facility] [id number] 15:53:00 Test Item Value Reference Range Interpretation Comments C trachomatis by Amp Det Negative (APTIMA) (test code = C *NA*(01/06/17 10:53 trachomatis by Amp Det AM) (APTIMA)) [facility] [id number] 15:53:00 Test Item Value Reference Range Interpretation Comments UA Bacteria (test code = UA Few /HPF Bacteria) [facility] AND [id number] 15:53:00 Test Item Value Reference Range Interpretation Comments UA RBC (test code = 0-2 /HPF See_Comment [Automa sue message] The UA RBC) system which ge nerated this result tra nsmitted reference range : <=2. The reference range was not used to interpr et this result as kaelyn l/abnormal. [facility] AND [id number] 15:53:00 Test Item Value Reference Range Interpretation Comments UA WBC (test code = UA WBC) 0-2 /HPF [facility] AND [id number] 15:53:00 Test Item Value Reference Range Interpretation Comments UA Sq Epi (test code = UA Sq Epi) Few /LPF [facility] AND [id number] 15:53:00 Test Item Value Reference Range Interpretation Comments UA Leuk Est (test Negative (01/06/17 10:53 code = UA Leuk Est) AM) [facility] AND [id number] 15:53:00 Test Item Value Reference Range Interpretation Comments UA Blood (test code = Trace *ABN*(01/06/17 UA Blood) 10:53 AM) [facility] AND [id number] 15:53:00 Test Item Value Reference Range Interpretation Comments UA Bili (test code = Negative *NA*(01/06/17 UA Bili) 10:53 AM) [facility] AND [id number] 15:53:00 Test Item Value Reference Range Interpretation Comments UA Protein (test code Negative (01/06/17 = UA Protein) 10:53 AM) [facility] AND [id number] 15:53:00 Test Item Value Reference Range Interpretation Comments UA Ketones (test code Negative *NA*(01/06/17 = UA Ketones) 10:53 AM) [facility] AND [id number] 15:53:00 Test Item Value Reference Range Interpretation Comments UA Glucose (test code Negative (01/06/17 = UA Glucose) 10:53 AM) [facility] AND [id number] 15:53:00 Test Item Value Reference Range Interpretation Comments UA Spec Grav (test code = UA Spec 1.015 1 Grav) [facility] AND [id number] 15:53:00 Test Item Value Reference Range Interpretation Comments UA pH (test code = UA pH) 7.0 1 5.0-8.0 [facility] [id number] 15:53:00 Test Item Value Reference Range Interpretation Comments UA Turbidity (test code = Clear (01/06/17 UA Turbidity) 10:53 AM) [facility] AND [id number] 15:53:00 Test Item Value Reference Range Interpretation Comments UA Color (test code = Yellow *NA*(01/06/17 UA Color) 10:53 AM) [facility] AND [id number] 15:53:00 Test Item Value Reference Range Interpretation Comments Micro? (test code = Performed (01/06/17 10:53 Micro?) AM) [facility] AND [id number] 15:53:00 Test Item Value Reference Range Interpretation Comments UA Nitrite (test code Negative (01/06/17 = UA Nitrite) 10:53 AM) [facility] AND [id number] 15:53:00 Test Item Value Reference Range Interpretation Comments UA Urobilinogen (test code = UA 1.0 0.1-1.0 Urobilinogen) [facility] [id number] 15:53:00 Test Item Value Reference Range Interpretation Comments U Creatinine (test code = U 125.00 Creatinine) [facility] [id number] 15:53:00 Test Item Value Reference Range Interpretation Comments U Prot/Creat (test code = U Prot/Creat) 0.2 [facility] [id number] 15:53:00 Test Item Value Reference Range Interpretation Comments U Protein (test code = U Protein) 19.2 [facility] [id number] 15:53:00 Test Item Value Reference Range Interpretation Comments N gonorrhea by Amp Det Negative *NA*(01/06/17 (APTIMA) (test code = N 10:53 AM) gonorrhea by Amp Det (APTIMA)) [facility] [id number] 15:53:00 Test Item Value Reference Range Interpretation Comments Source APTIMA (test Urine *NA*(01/06/17 code = Source APTIMA) 10:53 AM) [facility] [id number] 15:53:00 Test Item Value Reference Range Interpretation Comments C trachomatis by Amp Det Negative (APTIMA) (test code = C *NA*(01/06/17 10:53 trachomatis by Amp Det AM) (APTIMA)) [facility] [id number] 15:53:00 Test Item Value Reference Range Interpretation Comments UA Bacteria (test code = UA Few /HPF Bacteria) [facility] [id number] 15:53:00 Test Item Value Reference Range Interpretation Comments UA RBC (test code = 0-2 /HPF See_Comment [Automa sue message] The UA RBC) system which ge nerated this result tra nsmitted reference range : <=2. The reference range was not used to interpr et this result as kaelyn l/abnormal. [facility] [id number] 15:53:00 Test Item Value Reference Range Interpretation Comments UA WBC (test code = UA WBC) 0-2 /HPF [facility] [id number] 15:53:00 Test Item Value Reference Range Interpretation Comments UA Sq Epi (test code = UA Sq Epi) Few /LPF [facility] [id number] 15:53:00 Test Item Value Reference Range Interpretation Comments UA Leuk Est (test Negative (01/06/17 10:53 code = UA Leuk Est) AM) [facility] [id number] 15:53:00 Test Item Value Reference Range Interpretation Comments UA Blood (test code = Trace *ABN*(01/06/17 UA Blood) 10:53 AM) [facility] [id number] 15:53:00 Test Item Value Reference Range Interpretation Comments UA Bili (test code = Negative *NA*(01/06/17 UA Bili) 10:53 AM) [facility] [id number] 15:53:00 Test Item Value Reference Range Interpretation Comments UA Protein (test code Negative (01/06/17 = UA Protein) 10:53 AM) [facility] [id number] 15:53:00 Test Item Value Reference Range Interpretation Comments UA Ketones (test code Negative *NA*(01/06/17 = UA Ketones) 10:53 AM) [facility] [id number] 15:53:00 Test Item Value Reference Range Interpretation Comments UA Glucose (test code Negative (01/06/17 = UA Glucose) 10:53 AM) [facility] [id number] 15:53:00 Test Item Value Reference Range Interpretation Comments UA Spec Grav (test code = UA Spec 1.015 1 Grav) [facility] [id number] 15:53:00 Test Item Value Reference Range Interpretation Comments UA pH (test code = UA pH) 7.0 1 5.0-8.0 [facility] [id number] 15:53:00 Test Item Value Reference Range Interpretation Comments UA Turbidity (test code = Clear (01/06/17 UA Turbidity) 10:53 AM) [facility] [id number] 15:53:00 Test Item Value Reference Range Interpretation Comments UA Color (test code = Yellow *NA*(01/06/17 UA Color) 10:53 AM) [facility] [id number] 15:53:00 Test Item Value Reference Range Interpretation Comments Micro? (test code = Performed (01/06/17 10:53 Micro?) AM) [facility] [id number] 15:53:00 Test Item Value Reference Range Interpretation Comments UA Nitrite (test code Negative (01/06/17 = UA Nitrite) 10:53 AM) [facility] [id number] 15:53:00 Test Item Value Reference Range Interpretation Comments UA Urobilinogen (test code = UA 1.0 0.1-1.0 Urobilinogen) [facility] [id number] 15:53:00 Test Item Value Reference Range Interpretation Comments U Creatinine (test code = U 125.00 Creatinine) [facility] [id number] 15:53:00 Test Item Value Reference Range Interpretation Comments U Prot/Creat (test code = U Prot/Creat) 0.2 [facility] [id number] 15:53:00 Test Item Value Reference Range Interpretation Comments U Protein (test code = U Protein) 19.2 [facility] [id number] 15:53:00 Test Item Value Reference Range Interpretation Comments N gonorrhea by Amp Det Negative *NA*(01/06/17 (APTIMA) (test code = N 10:53 AM) gonorrhea by Amp Det (APTIMA)) [facility]LE[facility] [id number] 15:53:00 Test Item Value Reference Range Interpretation Comments Source APTIMA (test Urine *NA*(01/06/17 code = Source APTIMA) 10:53 AM) [facility] [id number] 15:53:00 Test Item Value Reference Range Interpretation Comments C trachomatis by Amp Det Negative (APTIMA) (test code = C *NA*(01/06/17 10:53 trachomatis by Amp Det AM) (APTIMA)) [facility] AND [id number] 15:53:00 Test Item Value Reference Range Interpretation Comments UA Bacteria (test code = UA Few /HPF Bacteria) [facility] AND [id number] 15:53:00 Test Item Value Reference Range Interpretation Comments UA RBC (test code = 0-2 /HPF See_Comment [Automa sue message] The UA RBC) system which ge nerated this result tra nsmitted reference range : <=2. The reference range was not used to interpr et this result as kaelyn l/abnormal. [facility] [id number] 15:53:00 Test Item Value Reference Range Interpretation Comments UA WBC (test code = UA WBC) 0-2 /HPF [facility] AND [id number] 15:53:00 Test Item Value Reference Range Interpretation Comments UA Sq Epi (test code = UA Sq Epi) Few /LPF [facility] AND [id number] 15:53:00 Test Item Value Reference Range Interpretation Comments UA Leuk Est (test Negative (01/06/17 10:53 code = UA Leuk Est) AM) [facility] [id number] 15:53:00 Test Item Value Reference Range Interpretation Comments UA Blood (test code = Trace *ABN*(01/06/17 UA Blood) 10:53 AM) [facility] [id number] 15:53:00 Test Item Value Reference Range Interpretation Comments UA Bili (test code = Negative *NA*(01/06/17 UA Bili) 10:53 AM) [facility] [id number] 15:53:00 Test Item Value Reference Range Interpretation Comments UA Protein (test code Negative (01/06/17 = UA Protein) 10:53 AM) [facility] [id number] 15:53:00 Test Item Value Reference Range Interpretation Comments UA Ketones (test code Negative *NA*(01/06/17 = UA Ketones) 10:53 AM) [facility] [id number] 15:53:00 Test Item Value Reference Range Interpretation Comments UA Glucose (test code Negative (01/06/17 = UA Glucose) 10:53 AM) [facility] [id number] 15:53:00 Test Item Value Reference Range Interpretation Comments UA Spec Grav (test code = UA Spec 1.015 1 Grav) [facility] [id number] 15:53:00 Test Item Value Reference Range Interpretation Comments UA pH (test code = UA pH) 7.0 1 5.0-8.0 [facility] [id number] 15:53:00 Test Item Value Reference Range Interpretation Comments UA Turbidity (test code = Clear (01/06/17 UA Turbidity) 10:53 AM) [facility] [id number] 15:53:00 Test Item Value Reference Range Interpretation Comments UA Color (test code = Yellow *NA*(01/06/17 UA Color) 10:53 AM) [facility] [id number] 15:53:00 Test Item Value Reference Range Interpretation Comments Micro? (test code = Performed (01/06/17 10:53 Micro?) AM) [facility] [id number] 15:53:00 Test Item Value Reference Range Interpretation Comments UA Nitrite (test code Negative (01/06/17 = UA Nitrite) 10:53 AM) [facility] [id number] 15:53:00 Test Item Value Reference Range Interpretation Comments UA Urobilinogen (test code = UA 1.0 0.1-1.0 Urobilinogen) [facility] [id number] 15:53:00 Test Item Value Reference Range Interpretation Comments U Creatinine (test code = U 125.00 Creatinine) [facility] [id number] 15:53:00 Test Item Value Reference Range Interpretation Comments U Prot/Creat (test code = U Prot/Creat) 0.2 [facility] [id number] 15:53:00 Test Item Value Reference Range Interpretation Comments U Protein (test code = U Protein) 19.2 [facility] Convert[facility] CoannCHEM [id number] 15:50:00 Test Item Value Reference Range Interpretation Comments CO2 (test code = CO2) 20 24-32 [facility] Convert[facility] CoannCHEM [id number] 15:50:00 Test Item Value Reference Range Interpretation Comments Chloride Lvl (test code = Chloride Lvl) 107 95-109 [facility] Convert[facility] CoannCHEM [id number] 15:50:00 Test Item Value Reference Range Interpretation Comments Potassium Lvl (test code = Potassium 3.5 3.5-5.1 Lvl) [facility] [employer] Coann10-20 Media [id number] 15:50:00 Test Item Value Reference Range Interpretation Comments AST (test code = AST) 16 See_Comment [Auto mated message] The system which ge nerated this result transmit sue reference range : <=37. The reference range was not used to interpr et this result as kaelyn l/abnormal. [facility]CHE[facility] [id number] 15:50:00 Test Item Value Reference Range Interpretation Comments Albumin Lvl (test code = Albumin Lvl) 2.9 3.5-5.0 [facility] [place] [id number] 15:50:00 Test Item Value Reference Range Interpretation Comments ALT (test code = ALT) 14 See_Comment [Auto mated message] The system which ge nerated this result transmit sue reference range : <=65. The reference range was not used to interpr et this result as kaelyn l/abnormal. [facility] [id number] 15:50:00 Test Item Value Reference Range Interpretation Comments Alk Phos (test code = Alk Phos) 136 39-136 [facility] [place] [id number] 15:50:00 Test Item Value Reference Range Interpretation Comments Bili Total (test code = Bili Total) 0.6 0.2-1.3 [facility] [id number] 15:50:00 Test Item Value Reference Range Interpretation Comments U Opiate Scr (test Negative *NA*(01/06/17 code = U Opiate Scr) 10:50 AM) [facility] [id number] 15:50:00 Test Item Value Reference Range Interpretation Comments U Cannab Scr (test Negative *NA*(01/06/17 code = U Cannab Scr) 10:50 AM) [facility] [id number] 15:50:00 Test Item Value Reference Range Interpretation Comments UDS Note (test code = See Note (01/06/17 UDS Note) 10:50 AM) [facility] [id number] 15:50:00 Test Item Value Reference Range Interpretation Comments U Phencyc Scr (test Negative *NA*(01/06/17 code = U Phencyc Scr) 10:50 AM) [facility] [id number] 15:50:00 Test Item Value Reference Range Interpretation Comments U Lori Scr (test code Negative *NA*(01/06/17 = U Lori Scr) 10:50 AM) [facility]2017-10-24 15:50:00 Test Item Value Reference Range Interpretation Comments U Cocaine Scr (test Positive *ABN*(01/06/17 code = U Cocaine Scr) 10:50 AM) [facility] [id number] 15:50:00 Test Item Value Reference Range Interpretation Comments U Amph Scr (test code Negative *NA*(01/06/17 = U Amph Scr) 10:50 AM) [facility] [id number] 15:50:00 Test Item Value Reference Range Interpretation Comments U Benzodia Scr (test Negative *NA*(01/06/17 code = U Benzodia Scr) 10:50 AM) [id number] 15:50:00 Test Item Value Reference Range Interpretation Comments Basophils (test code = 0.5 See_Comment [Aut omated message] The Basophils) system which ge nerated this result tra nsmitted reference range : <=1.0. The reference r hugo was not used to int erpret this result as normal/abnormal . [facility] [id number] 15:50:00 Test Item Value Reference Range Interpretation Comments Eosinophils (test code = 0.3 See_Comment [A utomated message] The Eosinophils) system which ge nerated this result tra nsmitted reference range : <=4.0. The reference r hugo was not used to int erpret this result as normal/abnormal . [facility] [id number] 15:50:00 Test Item Value Reference Range Interpretation Comments Monocytes # (test code 0.7 See_Comment [Aut omated message] The = Monocytes #) system which generated this result tra nsmitted reference range : <=0.8. The reference r hugo was not used to int erpret this result as normal/abnormal . [facility] [id number] 15:50:00 Test Item Value Reference Range Interpretation Comments Segs-Bands # (test code = Segs-Bands #) 7.8 1.5-8.1 [facility] [id number] 15:50:00 Test Item Value Reference Range Interpretation Comments Lymphocytes # (test code = Lymphocytes 1.4 1.0-5.5 #) [facility] [id number] 15:50:00 Test Item Value Reference Range Interpretation Comments Monocytes (test code = Monocytes) 7.2 2.0-12.0 [facility] [id number] 15:50:00 Test Item Value Reference Range Interpretation Comments Lymphocytes (test code = Lymphocytes) 14.0 20.0-40.0 [facility] [id number] 15:50:00 Test Item Value Reference Range Interpretation Comments Segs (test code = Segs) 78.0 45.0-75.0 [facility] [id number] 15:50:00 Test Item Value Reference Range Interpretation Comments MPV (test code = MPV) 9.0 7.4-10.4 [facility] C[id number] 15:50:00 Test Item Value Reference Range Interpretation Comments Platelet (test code = Platelet) 195 133-450 [facility] Cent[id number] 15:50:00 Test Item Value Reference Range Interpretation Comments RDW (test code = RDW) 13.3 11.5-14.5 [facility] Cent[id number] 15:50:00 Test Item Value Reference Range Interpretation Comments MCH (test code = MCH) 31.4 pg 27.0-31.0 [facility] [id number] 15:50:00 Test Item Value Reference Range Interpretation Comments MCHC (test code = MCHC) 34.0 32.0-36.0 [facility] Cent[id number] 15:50:00 Test Item Value Reference Range Interpretation Comments MCV (test code = MCV) 92.2 80.0-98.0 [facility]UhugplfRTFHAJRMIQ1772-73-85 15:50:00 Test Item Value Reference Range Interpretation Comments Hct (test code = Hct) 36.4 36.0-48.0 [facility] Hospit[id number] 15:50:00 Test Item Value Reference Range Interpretation Comments RBC (test code = RBC) 3.95 4.20-5.40 [facility] Cent[id number] 15:50:00 Test Item Value Reference Range Interpretation Comments Hgb (test code = Hgb) 12.4 12.0-16.0 [facility] H[id number] 15:50:00 Test Item Value Reference Range Interpretation Comments WBC (test code = WBC) 10.0 3.7-10.4 [facility] CenterUverwjsTDSWCIPKKH7839-59-29 15:50:00 Test Item Value Reference Range Interpretation Comments HIV. (test code = Negative *NA*(01/06/17 HIV.) 10:50 AM) [facility] CenterWltomtiGRUSENBVMV0523-59-74 15:50:00 Test Item Value Reference Range Interpretation Comments Hep Bs Ag (test code Negative *NA*(01/06/17 = Hep Bs Ag) 10:50 AM) [facility] CenterPygxduaMGAJYSSXUH0804-09-52 15:50:00 Test Item Value Reference Range Interpretation Comments Treponemal Scr (test Non Reactive code = Treponemal Scr) *NA*(01/06/17 10:50 AM) [facility] BrookPmuhvaqMJAQCWVRFU4319-88-21 15:50:00 Test Item Value Reference Range Interpretation Comments Rubella IgG (test code = Rubella IgG) 66.9 [facility] BrookFlvtydcOEEPEZQAMQ4827-13-76 15:50:00 Test Item Value Reference Range Interpretation Comments Hep Bs Ag (test code Negative *NA*(01/06/17 = Hep Bs Ag) 10:50 AM) [facility] [id number] 15:50:00 Test Item Value Reference Range Interpretation Comments Rhig Reqd (test code = See Note 1(01/06/17 Rhig Reqd) 10:50 AM) [facility] [employer] [facility] [id number] 15:50:00 Test Item Value Reference Range Interpretation Comments Antibody Scrn (test Negative (01/06/17 code = Antibody Scrn) 10:50 AM) [facility] [id number] 15:50:00 Test Item Value Reference Range Interpretation Comments ABO/Rh (test code = ABO/Rh) O POS [facility] [place] [id number] 15:50:00 Test Item Value Reference Range Interpretation Comments B/C Ratio (test code = B/C Ratio) 11 6-25 [facility] [place] [id number] 15:50:00 Test Item Value Reference Range Interpretation Comments Globulin (test code = Globulin) 4.2 2.7-4.2 [facility] [place] [id number] 15:50:00 Test Item Value Reference Range Interpretation Comments AGAP (test code = AGAP) 13.5 10.0-20.0 [facility] [place] [id number] 15:50:00 Test Item Value Reference Range Interpretation Comments A/G Ratio (test code = A/G Ratio) 0.7 0.7-1.6 [facility] [place] [id number] 15:50:00 Test Item Value Reference Range Interpretation Comments eGFR (test code = eGFR) 153 [facility] [place] [id number] 15:50:00 Test Item Value Reference Range Interpretation Comments Sodium Lvl (test code = Sodium Lvl) 137 135-145 [facility] [place] [id number] 15:50:00 Test Item Value Reference Range Interpretation Comments BUN (test code = BUN) 6 7-22 [facility] [place] [id number] 15:50:00 Test Item Value Reference Range Interpretation Comments Glucose Lvl (test code = Glucose Lvl) 87 70-99 [facility] [place] [id number] 15:50:00 Test Item Value Reference Range Interpretation Comments Creatinine Lvl (test code = Creatinine 0.57 0.50-1.40 Lvl) [facility] [place] [id number] 15:50:00 Test Item Value Reference Range Interpretation Comments Calcium Lvl (test code = Calcium Lvl) 8.8 8.5-10.5 [facility] [place] [id number] 15:50:00 Test Item Value Reference Range Interpretation Comments Total Protein (test code = Total 7.1 6.4-8.4 Protein) [facility] [employer] [id number] 15:50:00 Test Item Value Reference Range Interpretation Comments Rhig Reqd (test code = See Note 1(01/06/17 Rhig Reqd) 10:50 AM) [facility] [employer] [id number] 15:50:00 Test Item Value Reference Range Interpretation Comments Antibody Scrn (test Negative (01/06/17 code = Antibody Scrn) 10:50 AM) [facility] [employer] [id number] 15:50:00 Test Item Value Reference Range Interpretation Comments ABO/Rh (test code = ABO/Rh) O POS [facility] [place] [id number] 15:50:00 Test Item Value Reference Range Interpretation Comments B/C Ratio (test code = B/C Ratio) 11 6-25 [facility] [place] [id number] 15:50:00 Test Item Value Reference Range Interpretation Comments Globulin (test code = Globulin) 4.2 2.7-4.2 [facility] [place] [id number] 15:50:00 Test Item Value Reference Range Interpretation Comments AGAP (test code = AGAP) 13.5 10.0-20.0 [facility] [place] [id number] 15:50:00 Test Item Value Reference Range Interpretation Comments A/G Ratio (test code = A/G Ratio) 0.7 0.7-1.6 [facility] [place] [id number] 15:50:00 Test Item Value Reference Range Interpretation Comments eGFR (test code = eGFR) 153 [facility] [place] [id number] 15:50:00 Test Item Value Reference Range Interpretation Comments Sodium Lvl (test code = Sodium Lvl) 137 135-145 [facility] [place] [id number] 15:50:00 Test Item Value Reference Range Interpretation Comments BUN (test code = BUN) 6 7-22 [facility] [place] [id number] 15:50:00 Test Item Value Reference Range Interpretation Comments Glucose Lvl (test code = Glucose Lvl) 87 70-99 [facility] [place] [id number] 15:50:00 Test Item Value Reference Range Interpretation Comments Creatinine Lvl (test code = Creatinine 0.57 0.50-1.40 Lvl) [facility]2017-10-24 15:50:00 Test Item Value Reference Range Interpretation Comments Calcium Lvl (test code = Calcium Lvl) 8.8 8.5-10.5 [facility]2017-10-24 15:50:00 Test Item Value Reference Range Interpretation Comments Total Protein (test code = Total 7.1 6.4-8.4 Protein) [facility]2017-10-24 15:50:00 Test Item Value Reference Range Interpretation Comments CO2 (test code = CO2) 20 24-32 [facility]2017-10-24 15:50:00 Test Item Value Reference Range Interpretation Comments Chloride Lvl (test code = Chloride Lvl) 107 95-109 [facility]2017-10-24 15:50:00 Test Item Value Reference Range Interpretation Comments Potassium Lvl (test code = Potassium 3.5 3.5-5.1 Lvl) [facility]2017-10-24 15:50:00 Test Item Value Reference Range Interpretation Comments AST (test code = AST) 16 See_Comment [Auto mated message] The system which ge nerated this result transmit sue reference range : <=37. The reference range was not used to interpr et this result as akelyn l/abnormal. [facility]2017-10-24 15:50:00 Test Item Value Reference Range Interpretation Comments Albumin Lvl (test code = Albumin Lvl) 2.9 3.5-5.0 [facility]2017-10-24 15:50:00 Test Item Value Reference Range Interpretation Comments ALT (test code = ALT) 14 See_Comment [Auto mated message] The system which ge nerated this result transmit sue reference range : <=65. The reference range was not used to interpr et this result as kaelyn l/abnormal. [facility]2017-10-24 15:50:00 Test Item Value Reference Range Interpretation Comments Alk Phos (test code = Alk Phos) 136 39-136 [facility]2017-10-24 15:50:00 Test Item Value Reference Range Interpretation Comments Bili Total (test code = Bili Total) 0.6 0.2-1.3 [facility] [id number] 15:50:00 Test Item Value Reference Range Interpretation Comments U Opiate Scr (test Negative *NA*(01/06/17 code = U Opiate Scr) 10:50 AM) [facility] [id number] 15:50:00 Test Item Value Reference Range Interpretation Comments U Cannab Scr (test Negative *NA*(01/06/17 code = U Cannab Scr) 10:50 AM) [facility] [id number] 15:50:00 Test Item Value Reference Range Interpretation Comments UDS Note (test code = See Note (01/06/17 UDS Note) 10:50 AM) [facility] [id number] 15:50:00 Test Item Value Reference Range Interpretation Comments U Phencyc Scr (test Negative *NA*(01/06/17 code = U Phencyc Scr) 10:50 AM) [facility] [id number] 15:50:00 Test Item Value Reference Range Interpretation Comments U Lori Scr (test code Negative *NA*(01/06/17 = U Lori Scr) 10:50 AM) [facility] [id number] 15:50:00 Test Item Value Reference Range Interpretation Comments U Cocaine Scr (test Positive *ABN*(01/06/17 code = U Cocaine Scr) 10:50 AM) [facility] [id number] 15:50:00 Test Item Value Reference Range Interpretation Comments U Amph Scr (test code Negative *NA*(01/06/17 = U Amph Scr) 10:50 AM) [facility] [id number] 15:50:00 Test Item Value Reference Range Interpretation Comments U Benzodia Scr (test Negative *NA*(01/06/17 code = U Benzodia Scr) 10:50 AM) [facility] [id number] 15:50:00 Test Item Value Reference Range Interpretation Comments Basophils (test code = 0.5 See_Comment [Aut omated message] The Basophils) system which ge nerated this result tra nsmitted reference range : <=1.0. The reference r hugo was not used to int erpret this result as normal/abnormal . [facility] CenterZlfglqlMNXWZIZSWJ9417-02-58 15:50:00 Test Item Value Reference Range Interpretation Comments Eosinophils (test code = 0.3 See_Comment [A utomated message] The Eosinophils) system which ge nerated this result tra nsmitted reference range : <=4.0. The reference r hugo was not used to int erpret this result as normal/abnormal . [facility] [id number] 15:50:00 Test Item Value Reference Range Interpretation Comments Monocytes # (test code 0.7 See_Comment [Aut omated message] The = Monocytes #) system which generated this result tra nsmitted reference range : <=0.8. The reference r hugo was not used to int erpret this result as normal/abnormal . [facility] CenterBrfvjjrOKYPIUEZEY9552-02-78 15:50:00 Test Item Value Reference Range Interpretation Comments Segs-Bands # (test code = Segs-Bands #) 7.8 1.5-8.1 [facility] CenterOypvrgmZXUOJRWXZI9366-10-00 15:50:00 Test Item Value Reference Range Interpretation Comments Lymphocytes # (test code = Lymphocytes 1.4 1.0-5.5 #) [facility] CenterTxanydeBWXRUAJWHB4552-68-33 15:50:00 Test Item Value Reference Range Interpretation Comments Monocytes (test code = Monocytes) 7.2 2.0-12.0 [facility] CenterWysycfuEWKFBKSIRR5444-91-52 15:50:00 Test Item Value Reference Range Interpretation Comments Lymphocytes (test code = Lymphocytes) 14.0 20.0-40.0 [facility] CenterDeqhhgjVFXNHMPPFT3025-81-79 15:50:00 Test Item Value Reference Range Interpretation Comments Segs (test code = Segs) 78.0 45.0-75.0 [facility] CenterZagkykcQZOCUJVBBH3022-78-92 15:50:00 Test Item Value Reference Range Interpretation Comments MPV (test code = MPV) 9.0 7.4-10.4 [facility] C[id number] 15:50:00 Test Item Value Reference Range Interpretation Comments Platelet (test code = Platelet) 195 133-450 [facility] CenterOogsxsvEISJGUWMVF1397-21-51 15:50:00 Test Item Value Reference Range Interpretation Comments RDW (test code = RDW) 13.3 11.5-14.5 [facility] CenterLhwnzpcJZVSPQWECW5307-44-99 15:50:00 Test Item Value Reference Range Interpretation Comments MCH (test code = MCH) 31.4 pg 27.0-31.0 [facility] CenterSmphzatODQLQFHSWX9793-60-69 15:50:00 Test Item Value Reference Range Interpretation Comments MCHC (test code = MCHC) 34.0 32.0-36.0 [facility] CenterAldaupaTNTJINUYZO9039-14-50 15:50:00 Test Item Value Reference Range Interpretation Comments MCV (test code = MCV) 92.2 80.0-98.0 [facility] CenterOsaifctJMJJOSTPFY1189-32-87 15:50:00 Test Item Value Reference Range Interpretation Comments Hct (test code = Hct) 36.4 36.0-48.0 [facility] CenterYonqsgpDXVCQFSAPD5546-47-18 15:50:00 Test Item Value Reference Range Interpretation Comments RBC (test code = RBC) 3.95 4.20-5.40 [facility] CenterRcpysovWAWONTGXFB3094-78-11 15:50:00 Test Item Value Reference Range Interpretation Comments Hgb (test code = Hgb) 12.4 12.0-16.0 [facility] Cent[id number] 15:50:00 Test Item Value Reference Range Interpretation Comments WBC (test code = WBC) 10.0 3.7-10.4 [facility] HospitalVwlhmofSCZKWMSYOA2758-26-36 15:50:00 Test Item Value Reference Range Interpretation Comments HIV. (test code = Negative *NA*(01/06/17 HIV.) 10:50 AM) [facility] CenterQcvibywFFSSMEHFMC7993-74-01 15:50:00 Test Item Value Reference Range Interpretation Comments Hep Bs Ag (test code Negative *NA*(01/06/17 = Hep Bs Ag) 10:50 AM) [facility] CenterVtharteLUBWRKBKRI9819-53-82 15:50:00 Test Item Value Reference Range Interpretation Comments Treponemal Scr (test Non Reactive code = Treponemal Scr) *NA*(01/06/17 10:50 AM) [facility] CenterLqievdlRMWPSRTIIS4518-64-05 15:50:00 Test Item Value Reference Range Interpretation Comments Rubella IgG (test code = Rubella IgG) 66.9 [facility] HospitalEydskuzBJZELQLZEV5394-93-42 15:50:00 Test Item Value Reference Range Interpretation Comments Hep Bs Ag (test code Negative *NA*(01/06/17 = Hep Bs Ag) 10:50 AM) [facility] [id number] 15:50:00 Test Item Value Reference Range Interpretation Comments Rhig Reqd (test code = See Note 1(01/06/17 Rhig Reqd) 10:50 AM) [facility] [employer] [facility] [id number] 15:50:00 Test Item Value Reference Range Interpretation Comments Antibody Scrn (test Negative (01/06/17 code = Antibody Scrn) 10:50 AM) [facility] [employer] [id number] 15:50:00 Test Item Value Reference Range Interpretation Comments ABO/Rh (test code = ABO/Rh) O POS [facility] [place] [id number] 15:50:00 Test Item Value Reference Range Interpretation Comments B/C Ratio (test code = B/C Ratio) 11 - [facility] [place] [id number] 15:50:00 Test Item Value Reference Range Interpretation Comments Globulin (test code = Globulin) 4.2 2.7-4.2 [facility] [place] [id number] 15:50:00 Test Item Value Reference Range Interpretation Comments AGAP (test code = AGAP) 13.5 10.0-20.0 [facility] [place] [id number] 15:50:00 Test Item Value Reference Range Interpretation Comments A/G Ratio (test code = A/G Ratio) 0.7 0.7-1.6 [facility] [place] [id number] 15:50:00 Test Item Value Reference Range Interpretation Comments eGFR (test code = eGFR) 153 [facility] [place] [id number] 15:50:00 Test Item Value Reference Range Interpretation Comments Sodium Lvl (test code = Sodium Lvl) 137 135-145 [facility] [place] [id number] 15:50:00 Test Item Value Reference Range Interpretation Comments BUN (test code = BUN) 6 - [facility] [place] [id number] 15:50:00 Test Item Value Reference Range Interpretation Comments Glucose Lvl (test code = Glucose Lvl) 87 70-99 [facility] [place] [id number] 15:50:00 Test Item Value Reference Range Interpretation Comments Creatinine Lvl (test code = Creatinine 0.57 0.50-1.40 Lvl) [facility] [place] [id number] 15:50:00 Test Item Value Reference Range Interpretation Comments Calcium Lvl (test code = Calcium Lvl) 8.8 8.5-10.5 [facility] [place] [id number] 15:50:00 Test Item Value Reference Range Interpretation Comments Total Protein (test code = Total 7.1 6.4-8.4 Protein) [facility] [place] [id number] 15:50:00 Test Item Value Reference Range Interpretation Comments CO2 (test code = CO2) 20 24-32 [facility] [place] [id number] 15:50:00 Test Item Value Reference Range Interpretation Comments Chloride Lvl (test code = Chloride Lvl) 107 95-109 [facility] [place] [id number] 15:50:00 Test Item Value Reference Range Interpretation Comments Potassium Lvl (test code = Potassium 3.5 3.5-5.1 Lvl) [facility] [place] [id number] 15:50:00 Test Item Value Reference Range Interpretation Comments AST (test code = AST) 16 See_Comment [Auto mated message] The system which ge nerated this result transmit sue reference range : <=37. The reference range was not used to interpr et this result as kaelyn l/abnormal. [facility] [place] [id number] 15:50:00 Test Item Value Reference Range Interpretation Comments Albumin Lvl (test code = Albumin Lvl) 2.9 3.5-5.0 [facility] [place] [id number] 15:50:00 Test Item Value Reference Range Interpretation Comments ALT (test code = ALT) 14 See_Comment [Auto mated message] The system which ge nerated this result transmit sue reference range : <=65. The reference range was not used to interpr et this result as kaelyn l/abnormal. [facility] [place] [id number] 15:50:00 Test Item Value Reference Range Interpretation Comments Alk Phos (test code = Alk Phos) 136 39-136 [facility] [place] [id number] 15:50:00 Test Item Value Reference Range Interpretation Comments Bili Total (test code = Bili Total) 0.6 0.2-1.3 [facility] MMIT [id number] 15:50:00 Test Item Value Reference Range Interpretation Comments U Opiate Scr (test Negative *NA*(01/06/17 code = U Opiate Scr) 10:50 AM) [facility] [id number] 15:50:00 Test Item Value Reference Range Interpretation Comments U Cannab Scr (test Negative *NA*(01/06/17 code = U Cannab Scr) 10:50 AM) [facility] [id number] 15:50:00 Test Item Value Reference Range Interpretation Comments UDS Note (test code = See Note (01/06/17 UDS Note) 10:50 AM) [facility]2017-10-24 15:50:00 Test Item Value Reference Range Interpretation Comments U Phencyc Scr (test Negative *NA*(01/06/17 code = U Phencyc Scr) 10:50 AM) [facility]2017-10-24 15:50:00 Test Item Value Reference Range Interpretation Comments U Lori Scr (test code Negative *NA*(01/06/17 = U Lori Scr) 10:50 AM) [facility]2017-10-24 15:50:00 Test Item Value Reference Range Interpretation Comments U Cocaine Scr (test Positive *ABN*(01/06/17 code = U Cocaine Scr) 10:50 AM) [facility]2017-10-24 15:50:00 Test Item Value Reference Range Interpretation Comments U Amph Scr (test code Negative *NA*(01/06/17 = U Amph Scr) 10:50 AM) [facility]2017-10-24 15:50:00 Test Item Value Reference Range Interpretation Comments U Benzodia Scr (test Negative *NA*(01/06/17 code = U Benzodia Scr) 10:50 AM) [facility] CenterEsiseyeQOBSSFQSVF8138-55-74 15:50:00 Test Item Value Reference Range Interpretation Comments Basophils (test code = 0.5 See_Comment [Aut omated message] The Basophils) system which ge nerated this result tra nsmitted reference range : <=1.0. The reference r hugo was not used to int erpret this result as normal/abnormal . [facility] CenterImlxtowVLJANNOVWA8858-18-68 15:50:00 Test Item Value Reference Range Interpretation Comments Eosinophils (test code = 0.3 See_Comment [A utomated message] The Eosinophils) system which ge nerated this result tra nsmitted reference range : <=4.0. The reference r hugo was not used to int erpret this result as normal/abnormal . [facility] CenterSveqprmPXCDTYJUJA4258-38-47 15:50:00 Test Item Value Reference Range Interpretation Comments Monocytes # (test code 0.7 See_Comment [Aut omated message] The = Monocytes #) system which generated this result tra nsmitted reference range : <=0.8. The reference r hugo was not used to int erpret this result as normal/abnormal . [facility] CenterXcutburDCETVOLAXX6223-01-84 15:50:00 Test Item Value Reference Range Interpretation Comments Segs-Bands # (test code = Segs-Bands #) 7.8 1.5-8.1 [facility] CenterXzipvzrSWNOGEELHI5226-94-95 15:50:00 Test Item Value Reference Range Interpretation Comments Lymphocytes # (test code = Lymphocytes 1.4 1.0-5.5 #) [facility] CenterGoelzwvUCTCOSRRWO8807-15-37 15:50:00 Test Item Value Reference Range Interpretation Comments Monocytes (test code = Monocytes) 7.2 2.0-12.0 [facility] CenterHwnlbldCKIOPRKRWL0417-06-90 15:50:00 Test Item Value Reference Range Interpretation Comments Lymphocytes (test code = Lymphocytes) 14.0 20.0-40.0 [facility] CenterXllwzcwNIPDRQYZFM3043-27-80 15:50:00 Test Item Value Reference Range Interpretation Comments Segs (test code = Segs) 78.0 45.0-75.0 [facility] CenterErepbwxVBAUDLQTUK5406-83-50 15:50:00 Test Item Value Reference Range Interpretation Comments MPV (test code = MPV) 9.0 7.4-10.4 [facility] CenterVpborarOYUAYRTYXM7103-40-69 15:50:00 Test Item Value Reference Range Interpretation Comments Platelet (test code = Platelet) 195 133-450 [facility] CenterVsmqjsqTMXBUVWFRB4232-09-47 15:50:00 Test Item Value Reference Range Interpretation Comments RDW (test code = RDW) 13.3 11.5-14.5 [facility] CenterUufcyboNJZPCFLMIH8564-22-12 15:50:00 Test Item Value Reference Range Interpretation Comments MCH (test code = MCH) 31.4 pg 27.0-31.0 [facility] CenterKlvswtyMEMQKIVQYD4673-53-26 15:50:00 Test Item Value Reference Range Interpretation Comments MCHC (test code = MCHC) 34.0 32.0-36.0 [facility] CenterBuurjhaXCEKEIZLWM7477-80-45 15:50:00 Test Item Value Reference Range Interpretation Comments MCV (test code = MCV) 92.2 80.0-98.0 [facility] CenterIpzozotRYPTULJRSI5268-61-61 15:50:00 Test Item Value Reference Range Interpretation Comments Hct (test code = Hct) 36.4 36.0-48.0 [facility] CenterJkoopjfSJDGGCXEBO0944-26-40 15:50:00 Test Item Value Reference Range Interpretation Comments RBC (test code = RBC) 3.95 4.20-5.40 [facility]ZesvqbpRTHMEERODW3371-51-54 15:50:00 Test Item Value Reference Range Interpretation Comments Hgb (test code = Hgb) 12.4 12.0-16.0 [facility] CenterGbswumxIFCHFKXYAD4464-03-24 15:50:00 Test Item Value Reference Range Interpretation Comments WBC (test code = WBC) 10.0 3.7-10.4 [facility] CenterYsdkjjkXZOAXEFJCW5394-42-51 15:50:00 Test Item Value Reference Range Interpretation Comments HIV. (test code = Negative *NA*(01/06/17 HIV.) 10:50 AM) [facility] CenterCbousqgGVWFBNZBEH0782-40-52 15:50:00 Test Item Value Reference Range Interpretation Comments Hep Bs Ag (test code Negative *NA*(01/06/17 = Hep Bs Ag) 10:50 AM) [facility] CenterMehrbzfVCMYQNGMLV9304-75-15 15:50:00 Test Item Value Reference Range Interpretation Comments Treponemal Scr (test Non Reactive code = Treponemal Scr) *NA*(01/06/17 10:50 AM) [facility] CenterUvqhngfJWNUTBOAZH3675-71-77 15:50:00 Test Item Value Reference Range Interpretation Comments Rubella IgG (test code = Rubella IgG) 66.9 [facility] CenterBnmnuhtIGINTNILCD5257-75-84 15:50:00 Test Item Value Reference Range Interpretation Comments Hep Bs Ag (test code Negative *NA*(01/06/17 = Hep Bs Ag) 10:50 AM) [facility] [id number] 15:50:00 Test Item Value Reference Range Interpretation Comments Rhig Reqd (test code = See Note 1(01/06/17 Rhig Reqd) 10:50 AM) [facility] [employer] [facility] [id number] 15:50:00 Test Item Value Reference Range Interpretation Comments Antibody Scrn (test Negative (01/06/17 code = Antibody Scrn) 10:50 AM) [facility] [employer] [facility] [id number] 15:50:00 Test Item Value Reference Range Interpretation Comments ABO/Rh (test code = ABO/Rh) O POS [facility] [place] [id number] 15:50:00 Test Item Value Reference Range Interpretation Comments B/C Ratio (test code = B/C Ratio) 11 6-25 [facility] [id number] 15:50:00 Test Item Value Reference Range Interpretation Comments Globulin (test code = Globulin) 4.2 2.7-4.2 [facility] [id number] 15:50:00 Test Item Value Reference Range Interpretation Comments AGAP (test code = AGAP) 13.5 10.0-20.0 [facility] [id number] 15:50:00 Test Item Value Reference Range Interpretation Comments A/G Ratio (test code = A/G Ratio) 0.7 0.7-1.6 [facility] [employer] [id number] 15:50:00 Test Item Value Reference Range Interpretation Comments eGFR (test code = eGFR) 153 [facility] [employer] [id number] 15:50:00 Test Item Value Reference Range Interpretation Comments Sodium Lvl (test code = Sodium Lvl) 137 135-145 [facility] [id number] 15:50:00 Test Item Value Reference Range Interpretation Comments BUN (test code = BUN) 6 7-22 [facility] [id number] 15:50:00 Test Item Value Reference Range Interpretation Comments Glucose Lvl (test code = Glucose Lvl) 87 70-99 [facility] [id number] 15:50:00 Test Item Value Reference Range Interpretation Comments Creatinine Lvl (test code = Creatinine 0.57 0.50-1.40 Lvl) [facility] [id number] 15:50:00 Test Item Value Reference Range Interpretation Comments Calcium Lvl (test code = Calcium Lvl) 8.8 8.5-10.5 [facility] [id number] 15:50:00 Test Item Value Reference Range Interpretation Comments Total Protein (test code = Total 7.1 6.4-8.4 Protein) [facility] [id number] 15:50:00 Test Item Value Reference Range Interpretation Comments CO2 (test code = CO2) 20 24-32 [facility] [id number] 15:50:00 Test Item Value Reference Range Interpretation Comments Chloride Lvl (test code = Chloride Lvl) 107 95-109 [facility] [id number] 15:50:00 Test Item Value Reference Range Interpretation Comments Potassium Lvl (test code = Potassium 3.5 3.5-5.1 Lvl) [facility] [id number] 15:50:00 Test Item Value Reference Range Interpretation Comments AST (test code = AST) 16 See_Comment [Auto mated message] The system which ge nerated this result transmit sue reference range : <=37. The reference range was not used to interpr et this result as kaelyn l/abnormal. [facility] [place] [employer] [id number] 15:50:00 Test Item Value Reference Range Interpretation Comments Albumin Lvl (test code = Albumin Lvl) 2.9 3.5-5.0 [facility] [id number] 15:50:00 Test Item Value Reference Range Interpretation Comments ALT (test code = ALT) 14 See_Comment [Auto mated message] The system which ge nerated this result transmit sue reference range : <=65. The reference range was not used to interpr et this result as kaelyn l/abnormal. [facility] [place] [id number] 15:50:00 Test Item Value Reference Range Interpretation Comments Alk Phos (test code = Alk Phos) 136 39-136 [facility] [id number] 15:50:00 Test Item Value Reference Range Interpretation Comments Bili Total (test code = Bili Total) 0.6 0.2-1.3 [facility] MMIT [id number] 15:50:00 Test Item Value Reference Range Interpretation Comments U Opiate Scr (test Negative *NA*(01/06/17 code = U Opiate Scr) 10:50 AM) [facility] BrookWrightspeed [id number] 15:50:00 Test Item Value Reference Range Interpretation Comments U Cannab Scr (test Negative *NA*(01/06/17 code = U Cannab Scr) 10:50 AM) [facility] [id number] 15:50:00 Test Item Value Reference Range Interpretation Comments UDS Note (test code = See Note (01/06/17 UDS Note) 10:50 AM) [facility]2017-10-24 15:50:00 Test Item Value Reference Range Interpretation Comments U Phencyc Scr (test Negative *NA*(01/06/17 code = U Phencyc Scr) 10:50 AM) [facility] [id number] 15:50:00 Test Item Value Reference Range Interpretation Comments U Lori Scr (test code Negative *NA*(01/06/17 = U Lori Scr) 10:50 AM) [facility]2017-10-24 15:50:00 Test Item Value Reference Range Interpretation Comments U Cocaine Scr (test Positive *ABN*(01/06/17 code = U Cocaine Scr) 10:50 AM) [facility]2017-10-24 15:50:00 Test Item Value Reference Range Interpretation Comments U Amph Scr (test code Negative *NA*(01/06/17 = U Amph Scr) 10:50 AM) [facility]2017-10-24 15:50:00 Test Item Value Reference Range Interpretation Comments U Benzodia Scr (test Negative *NA*(01/06/17 code = U Benzodia Scr) 10:50 AM) [id number] 15:50:00 Test Item Value Reference Range Interpretation Comments Basophils (test code = 0.5 See_Comment [Aut omated message] The Basophils) system which nerated this result tra nsmitted reference range : <=1.0. The reference r hugo was not used to int erpret this result as normal/abnormal . [facility] C[id number] 15:50:00 Test Item Value Reference Range Interpretation Comments Eosinophils (test code = 0.3 See_Comment [A utomated message] The Eosinophils) system which ge nerated this result tra nsmitted reference range : <=4.0. The reference r hugo was not used to int erpret this result as normal/abnormal . [facility] C[id number] 15:50:00 Test Item Value Reference Range Interpretation Comments Monocytes # (test code 0.7 See_Comment [Aut omated message] The = Monocytes #) system which generated this result tra nsmitted reference range : <=0.8. The reference r hugo was not used to int erpret this result as normal/abnormal . [facility] CenterXizgokzQOHSLTWWJU7237-69-12 15:50:00 Test Item Value Reference Range Interpretation Comments Segs-Bands # (test code = Segs-Bands #) 7.8 1.5-8.1 [facility] [id number] 15:50:00 Test Item Value Reference Range Interpretation Comments Lymphocytes # (test code = Lymphocytes 1.4 1.0-5.5 #) [facility] CenterMtremtlONPWIWJYDY8859-03-19 15:50:00 Test Item Value Reference Range Interpretation Comments Monocytes (test code = Monocytes) 7.2 2.0-12.0 [facility] CenterHgsfnfdSCUVKPBOSR9729-09-44 15:50:00 Test Item Value Reference Range Interpretation Comments Lymphocytes (test code = Lymphocytes) 14.0 20.0-40.0 [facility] CenterGplolteEJYULAXAAG9953-49-01 15:50:00 Test Item Value Reference Range Interpretation Comments Segs (test code = Segs) 78.0 45.0-75.0 [facility] CenterPeftlzjXYDAFMDKZS5404-16-74 15:50:00 Test Item Value Reference Range Interpretation Comments MPV (test code = MPV) 9.0 7.4-10.4 [facility] CenterWwsglgvULWGOFDESV3419-94-93 15:50:00 Test Item Value Reference Range Interpretation Comments Platelet (test code = Platelet) 195 133-450 [facility] CenterGvcvgroFHMBLHCWBX9576-62-52 15:50:00 Test Item Value Reference Range Interpretation Comments RDW (test code = RDW) 13.3 11.5-14.5 [facility] CenterPtwngyvHNKLXVFHDE2467-02-62 15:50:00 Test Item Value Reference Range Interpretation Comments MCH (test code = MCH) 31.4 pg 27.0-31.0 [facility] CenterWglbribHBWFFWSOBE0973-77-24 15:50:00 Test Item Value Reference Range Interpretation Comments MCHC (test code = MCHC) 34.0 32.0-36.0 [facility] CenterPsmumzwHLUYEAYYVR4925-09-43 15:50:00 Test Item Value Reference Range Interpretation Comments MCV (test code = MCV) 92.2 80.0-98.0 [facility] CenterHitulweIQYXLGEGWB1532-91-93 15:50:00 Test Item Value Reference Range Interpretation Comments Hct (test code = Hct) 36.4 36.0-48.0 [facility] CenterLjbyylvHFAHMEBHLT3089-18-98 15:50:00 Test Item Value Reference Range Interpretation Comments RBC (test code = RBC) 3.95 4.20-5.40 [facility] CenterMmpxwweCSZBPOWFPY5414-20-62 15:50:00 Test Item Value Reference Range Interpretation Comments Hgb (test code = Hgb) 12.4 12.0-16.0 [facility] CenterFhiqwztNSNLEVAHDF1490-90-75 15:50:00 Test Item Value Reference Range Interpretation Comments WBC (test code = WBC) 10.0 3.7-10.4 [facility] HospitalXmvvbclAAXWGYSDRZ8939-91-08 15:50:00 Test Item Value Reference Range Interpretation Comments HIV. (test code = Negative *NA*(01/06/17 HIV.) 10:50 AM) [facility] CenterOqsugjfXHEPTDXAFH0574-00-20 15:50:00 Test Item Value Reference Range Interpretation Comments Hep Bs Ag (test code Negative *NA*(01/06/17 = Hep Bs Ag) 10:50 AM) [facility] CenterNhbknthPVWXTEQUPF7351-65-56 15:50:00 Test Item Value Reference Range Interpretation Comments Treponemal Scr (test Non Reactive code = Treponemal Scr) *NA*(01/06/17 10:50 AM) [facility] HospitalQzcycslMEFAQBBGWL0581-38-04 15:50:00 Test Item Value Reference Range Interpretation Comments Rubella IgG (test code = Rubella IgG) 66.9 [facility] CenterYfkghczBDFGCKNOTF7786-92-28 15:50:00 Test Item Value Reference Range Interpretation Comments Hep Bs Ag (test code Negative *NA*(01/06/17 = Hep Bs Ag) 10:50 AM) [facility] BrookFLX Micro [id number] 15:50:00 Test Item Value Reference Range Interpretation Comments Rhig Reqd (test code = See Note 1(01/06/17 Rhig Reqd) 10:50 AM) [facility] [employer] [id number] 15:50:00 Test Item Value Reference Range Interpretation Comments Antibody Scrn (test Negative (01/06/17 code = Antibody Scrn) 10:50 AM) [facility] CenterONSt[facility] [id number] 15:50:00 Test Item Value Reference Range Interpretation Comments ABO/Rh (test code = ABO/Rh) O POS [facility] BrookEmployee [facility] [id number] 15:50:00 Test Item Value Reference Range Interpretation Comments B/C Ratio (test code = B/C Ratio) 11 6-25 [facility] [id number] 15:50:00 Test Item Value Reference Range Interpretation Comments Globulin (test code = Globulin) 4.2 2.7-4.2 [facility] [place] [id number] 15:50:00 Test Item Value Reference Range Interpretation Comments AGAP (test code = AGAP) 13.5 10.0-20.0 [facility] [place] [id number] 15:50:00 Test Item Value Reference Range Interpretation Comments A/G Ratio (test code = A/G Ratio) 0.7 0.7-1.6 [facility] [place] [id number] 15:50:00 Test Item Value Reference Range Interpretation Comments eGFR (test code = eGFR) 153 [facility] BrookEmployee [facility] [id number] 15:50:00 Test Item Value Reference Range Interpretation Comments Sodium Lvl (test code = Sodium Lvl) 137 135-145 [facility] [place] [id number] 15:50:00 Test Item Value Reference Range Interpretation Comments BUN (test code = BUN) 6 7-22 [facility] [place] [id number] 15:50:00 Test Item Value Reference Range Interpretation Comments Glucose Lvl (test code = Glucose Lvl) 87 70-99 [facility] [id number] 15:50:00 Test Item Value Reference Range Interpretation Comments Creatinine Lvl (test code = Creatinine 0.57 0.50-1.40 Lvl) [facility] [place] [id number] 15:50:00 Test Item Value Reference Range Interpretation Comments Calcium Lvl (test code = Calcium Lvl) 8.8 8.5-10.5 [facility] BrookEmployee [facility] [id number] 15:50:00 Test Item Value Reference Range Interpretation Comments Total Protein (test code = Total 7.1 6.4-8.4 Protein) [facility] [place] [id number] 15:50:00 Test Item Value Reference Range Interpretation Comments CO2 (test code = CO2) 20 24-32 [facility] BrookEmployee [facility] [id number] 15:50:00 Test Item Value Reference Range Interpretation Comments Chloride Lvl (test code = Chloride Lvl) 107 95-109 [facility] BrookEmployee [facility] [id number] 15:50:00 Test Item Value Reference Range Interpretation Comments Potassium Lvl (test code = Potassium 3.5 3.5-5.1 Lvl) [facility] BrookEmployee [facility] [id number] 15:50:00 Test Item Value Reference Range Interpretation Comments AST (test code = AST) 16 See_Comment [Auto mated message] The system which ge nerated this result transmit sue reference range : <=37. The reference range was not used to interpr et this result as kaelyn l/abnormal. [facility] [place] [id number] 15:50:00 Test Item Value Reference Range Interpretation Comments Albumin Lvl (test code = Albumin Lvl) 2.9 3.5-5.0 [facility] [place] [id number] 15:50:00 Test Item Value Reference Range Interpretation Comments ALT (test code = ALT) 14 See_Comment [Auto mated message] The system which ge nerated this result transmit sue reference range : <=65. The reference range was not used to interpr et this result as kaelyn l/abnormal. [facility] [place] [id number] 15:50:00 Test Item Value Reference Range Interpretation Comments Alk Phos (test code = Alk Phos) 136 39-136 [facility] [place] [id number] 15:50:00 Test Item Value Reference Range Interpretation Comments Bili Total (test code = Bili Total) 0.6 0.2-1.3 [facility] MMIT [id number] 15:50:00 Test Item Value Reference Range Interpretation Comments U Opiate Scr (test Negative *NA*(01/06/17 code = U Opiate Scr) 10:50 AM) [facility] MMIT [id number] 15:50:00 Test Item Value Reference Range Interpretation Comments U Cannab Scr (test Negative *NA*(01/06/17 code = U Cannab Scr) 10:50 AM) [facility] [id number] 15:50:00 Test Item Value Reference Range Interpretation Comments UDS Note (test code = See Note (01/06/17 UDS Note) 10:50 AM) [facility] [id number] 15:50:00 Test Item Value Reference Range Interpretation Comments U Phencyc Scr (test Negative *NA*(01/06/17 code = U Phencyc Scr) 10:50 AM) [facility]2017-10-24 15:50:00 Test Item Value Reference Range Interpretation Comments U Lori Scr (test code Negative *NA*(01/06/17 = U Lori Scr) 10:50 AM) [facility]2017-10-24 15:50:00 Test Item Value Reference Range Interpretation Comments U Cocaine Scr (test Positive *ABN*(01/06/17 code = U Cocaine Scr) 10:50 AM) [facility]2017-10-24 15:50:00 Test Item Value Reference Range Interpretation Comments U Amph Scr (test code Negative *NA*(01/06/17 = U Amph Scr) 10:50 AM) [facility]2017-10-24 15:50:00 Test Item Value Reference Range Interpretation Comments U Benzodia Scr (test Negative *NA*(01/06/17 code = U Benzodia Scr) 10:50 AM) [facility] C[id number] 15:50:00 Test Item Value Reference Range Interpretation Comments Basophils (test code = 0.5 See_Comment [Aut omated message] The Basophils) system which ge nerated this result tra nsmitted reference range : <=1.0. The reference r hugo was not used to int erpret this result as normal/abnormal . [facility] Cent[id number] 15:50:00 Test Item Value Reference Range Interpretation Comments Eosinophils (test code = 0.3 See_Comment [A utomated message] The Eosinophils) system which ge nerated this result tra nsmitted reference range : <=4.0. The reference r hugo was not used to int erpret this result as normal/abnormal . [facility] CenterNzvvibrSKNVNEGTHR0353-87-72 15:50:00 Test Item Value Reference Range Interpretation Comments Monocytes # (test code 0.7 See_Comment [Aut omated message] The = Monocytes #) system which generated this result tra nsmitted reference range : <=0.8. The reference r hugo was not used to int erpret this result as normal/abnormal . [facility] CenterShdliekVTRAHMXRDE1165-65-10 15:50:00 Test Item Value Reference Range Interpretation Comments Segs-Bands # (test code = Segs-Bands #) 7.8 1.5-8.1 [facility] [id number] 15:50:00 Test Item Value Reference Range Interpretation Comments Lymphocytes # (test code = Lymphocytes 1.4 1.0-5.5 #) [facility] CenterGlwwvzeZEMRGYQQOO7003-59-69 15:50:00 Test Item Value Reference Range Interpretation Comments Monocytes (test code = Monocytes) 7.2 2.0-12.0 [facility] CenterHrowhqkWRYCCTKLYX7905-93-50 15:50:00 Test Item Value Reference Range Interpretation Comments Lymphocytes (test code = Lymphocytes) 14.0 20.0-40.0 [facility] CenterThagnrfYJYITRGEDO5454-51-51 15:50:00 Test Item Value Reference Range Interpretation Comments Segs (test code = Segs) 78.0 45.0-75.0 [facility] CenterHiiepomQSECZOKEGE9319-18-62 15:50:00 Test Item Value Reference Range Interpretation Comments MPV (test code = MPV) 9.0 7.4-10.4 [facility] C[id number] 15:50:00 Test Item Value Reference Range Interpretation Comments Platelet (test code = Platelet) 195 133-450 [facility] CenterBndzrxmGKRIGHOFUN4750-56-66 15:50:00 Test Item Value Reference Range Interpretation Comments RDW (test code = RDW) 13.3 11.5-14.5 [facility] CenterFjjgzemPBZGKVKKXV9713-11-24 15:50:00 Test Item Value Reference Range Interpretation Comments MCH (test code = MCH) 31.4 pg 27.0-31.0 [facility] [id number] 15:50:00 Test Item Value Reference Range Interpretation Comments MCHC (test code = MCHC) 34.0 32.0-36.0 [facility] CenterGgohmbzWGHLBFXUSB2640-01-05 15:50:00 Test Item Value Reference Range Interpretation Comments MCV (test code = MCV) 92.2 80.0-98.0 [facility] CenterMkrewveAESOELONIV5005-06-25 15:50:00 Test Item Value Reference Range Interpretation Comments Hct (test code = Hct) 36.4 36.0-48.0 [facility] CenterPoobkccCFGPWADDNR6270-08-29 15:50:00 Test Item Value Reference Range Interpretation Comments RBC (test code = RBC) 3.95 4.20-5.40 [facility] CenterYupsrjfKKWREIMUHN0936-64-16 15:50:00 Test Item Value Reference Range Interpretation Comments Hgb (test code = Hgb) 12.4 12.0-16.0 [facility] CenterHgaxpnfKYHJHAZQBB2460-19-68 15:50:00 Test Item Value Reference Range Interpretation Comments WBC (test code = WBC) 10.0 3.7-10.4 [facility] HospitalMiamilsZMQCAMATHE4177-48-90 15:50:00 Test Item Value Reference Range Interpretation Comments HIV. (test code = Negative *NA*(01/06/17 HIV.) 10:50 AM) [facility] HospitalIbqcrffKVKWVDDOTF4523-60-34 15:50:00 Test Item Value Reference Range Interpretation Comments Hep Bs Ag (test code Negative *NA*(01/06/17 = Hep Bs Ag) 10:50 AM) [facility] [id number] 15:50:00 Test Item Value Reference Range Interpretation Comments Treponemal Scr (test Non Reactive code = Treponemal Scr) *NA*(01/06/17 10:50 AM) [facility] C[id number] 15:50:00 Test Item Value Reference Range Interpretation Comments Rubella IgG (test code = Rubella IgG) 66.9 [facility] Cent[id number] 15:50:00 Test Item Value Reference Range Interpretation Comments Hep Bs Ag (test code Negative *NA*(01/06/17 = Hep Bs Ag) 10:50 AM) [facility] [employer] [id number] 15:50:00 Test Item Value Reference Range Interpretation Comments Rhig Reqd (test code = See Note 1(01/06/17 Rhig Reqd) 10:50 AM) [facility] [employer] [id number] 15:50:00 Test Item Value Reference Range Interpretation Comments Antibody Scrn (test Negative (01/06/17 code = Antibody Scrn) 10:50 AM) [facility] [employer] [id number] 15:50:00 Test Item Value Reference Range Interpretation Comments ABO/Rh (test code = ABO/Rh) O POS [facility]2017-10-24 15:50:00 Test Item Value Reference Range Interpretation Comments B/C Ratio (test code = B/C Ratio) 11 6-25 [facility]2017-10-24 15:50:00 Test Item Value Reference Range Interpretation Comments Globulin (test code = Globulin) 4.2 2.7-4.2 [facility]2017-10-24 15:50:00 Test Item Value Reference Range Interpretation Comments AGAP (test code = AGAP) 13.5 10.0-20.0 [facility]2017-10-24 15:50:00 Test Item Value Reference Range Interpretation Comments A/G Ratio (test code = A/G Ratio) 0.7 0.7-1.6 [facility]2017-10-24 15:50:00 Test Item Value Reference Range Interpretation Comments eGFR (test code = eGFR) 153 [facility]2017-10-24 15:50:00 Test Item Value Reference Range Interpretation Comments Sodium Lvl (test code = Sodium Lvl) 137 135-145 [facility]2017-10-24 15:50:00 Test Item Value Reference Range Interpretation Comments BUN (test code = BUN) 6 7-22 [facility]2017-10-24 15:50:00 Test Item Value Reference Range Interpretation Comments Glucose Lvl (test code = Glucose Lvl) 87 70-99 [facility]2017-10-24 15:50:00 Test Item Value Reference Range Interpretation Comments Creatinine Lvl (test code = Creatinine 0.57 0.50-1.40 Lvl) [facility]2017-10-24 15:50:00 Test Item Value Reference Range Interpretation Comments Calcium Lvl (test code = Calcium Lvl) 8.8 8.5-10.5 [facility]2017-10-24 15:50:00 Test Item Value Reference Range Interpretation Comments Total Protein (test code = Total 7.1 6.4-8.4 Protein) [facility]2017-10-24 15:50:00 Test Item Value Reference Range Interpretation Comments CO2 (test code = CO2) 20 24-32 [facility]2017-10-24 15:50:00 Test Item Value Reference Range Interpretation Comments Chloride Lvl (test code = Chloride Lvl) 107 95-109 [facility] [place] [id number] 15:50:00 Test Item Value Reference Range Interpretation Comments Potassium Lvl (test code = Potassium 3.5 3.5-5.1 Lvl) [facility] [id number] 15:50:00 Test Item Value Reference Range Interpretation Comments AST (test code = AST) 16 See_Comment [Auto mated message] The system which ge nerated this result transmit sue reference range : <=37. The reference range was not used to interpr et this result as kaelyn l/abnormal. [facility] [place] [id number] 15:50:00 Test Item Value Reference Range Interpretation Comments Albumin Lvl (test code = Albumin Lvl) 2.9 3.5-5.0 [facility] [place] [id number] 15:50:00 Test Item Value Reference Range Interpretation Comments ALT (test code = ALT) 14 See_Comment [Auto mated message] The system which ge nerated this result transmit sue reference range : <=65. The reference range was not used to interpr et this result as kaelyn l/abnormal. [facility] [place] [id number] 15:50:00 Test Item Value Reference Range Interpretation Comments Alk Phos (test code = Alk Phos) 136 39-136 [facility] [place] [id number] 15:50:00 Test Item Value Reference Range Interpretation Comments Bili Total (test code = Bili Total) 0.6 0.2-1.3 [facility] MMIT [id number] 15:50:00 Test Item Value Reference Range Interpretation Comments U Opiate Scr (test Negative *NA*(01/06/17 code = U Opiate Scr) 10:50 AM) [facility] [employer]2017-10-24 15:50:00 Test Item Value Reference Range Interpretation Comments U Cannab Scr (test Negative *NA*(01/06/17 code = U Cannab Scr) 10:50 AM) [facility] [employer]2017-10-24 15:50:00 Test Item Value Reference Range Interpretation Comments UDS Note (test code = See Note (01/06/17 UDS Note) 10:50 AM) [facility]2017-10-24 15:50:00 Test Item Value Reference Range Interpretation Comments U Phencyc Scr (test Negative *NA*(01/06/17 code = U Phencyc Scr) 10:50 AM) [facility] [id number] 15:50:00 Test Item Value Reference Range Interpretation Comments U Lori Scr (test code Negative *NA*(01/06/17 = U Lori Scr) 10:50 AM) [facility] [id number] 15:50:00 Test Item Value Reference Range Interpretation Comments U Cocaine Scr (test Positive *ABN*(01/06/17 code = U Cocaine Scr) 10:50 AM) [facility] [id number] 15:50:00 Test Item Value Reference Range Interpretation Comments U Amph Scr (test code Negative *NA*(01/06/17 = U Amph Scr) 10:50 AM) [facility]2017-10-24 15:50:00 Test Item Value Reference Range Interpretation Comments U Benzodia Scr (test Negative *NA*(01/06/17 code = U Benzodia Scr) 10:50 AM) [facility] CenterAfhpatdBOWMSEHNPH7294-66-15 15:50:00 Test Item Value Reference Range Interpretation Comments Basophils (test code = 0.5 See_Comment [Aut omated message] The Basophils) system which ge nerated this result tra nsmitted reference range : <=1.0. The reference r hugo was not used to int erpret this result as normal/abnormal . [facility] CenterQlsmxljCMXJHHTCPP2649-53-29 15:50:00 Test Item Value Reference Range Interpretation Comments Eosinophils (test code = 0.3 See_Comment [A utomated message] The Eosinophils) system which ge nerated this result tra nsmitted reference range : <=4.0. The reference r hugo was not used to int erpret this result as normal/abnormal . [facility] CenterAddowgzNXOYSRBNYO5339-20-99 15:50:00 Test Item Value Reference Range Interpretation Comments Monocytes # (test code 0.7 See_Comment [Aut omated message] The = Monocytes #) system which generated this result tra nsmitted reference range : <=0.8. The reference r hugo was not used to int erpret this result as normal/abnormal . [facility] CenterCpvifbnMSFJRUILNG7280-84-78 15:50:00 Test Item Value Reference Range Interpretation Comments Segs-Bands # (test code = Segs-Bands #) 7.8 1.5-8.1 [facility] C[id number] 15:50:00 Test Item Value Reference Range Interpretation Comments Lymphocytes # (test code = Lymphocytes 1.4 1.0-5.5 #) [facility] CenterEzroacaXENTHFHXSA3614-71-17 15:50:00 Test Item Value Reference Range Interpretation Comments Monocytes (test code = Monocytes) 7.2 2.0-12.0 [facility] CenterYfisttyRQUDHGUMOS7172-05-84 15:50:00 Test Item Value Reference Range Interpretation Comments Lymphocytes (test code = Lymphocytes) 14.0 20.0-40.0 [facility] CenterIhqbyirGSMZDDNROS4475-36-76 15:50:00 Test Item Value Reference Range Interpretation Comments Segs (test code = Segs) 78.0 45.0-75.0 [facility] CenterYgxvejnLNGTNUNKNU2282-80-17 15:50:00 Test Item Value Reference Range Interpretation Comments MPV (test code = MPV) 9.0 7.4-10.4 [id number] 15:50:00 Test Item Value Reference Range Interpretation Comments Platelet (test code = Platelet) 195 133-450 [facility] [id number] 15:50:00 Test Item Value Reference Range Interpretation Comments RDW (test code = RDW) 13.3 11.5-14.5 [facility] [id number] 15:50:00 Test Item Value Reference Range Interpretation Comments MCH (test code = MCH) 31.4 pg 27.0-31.0 [facility] [id number] 15:50:00 Test Item Value Reference Range Interpretation Comments MCHC (test code = MCHC) 34.0 32.0-36.0 [facility] [id number] 15:50:00 Test Item Value Reference Range Interpretation Comments MCV (test code = MCV) 92.2 80.0-98.0 [facility] [id number] 15:50:00 Test Item Value Reference Range Interpretation Comments Hct (test code = Hct) 36.4 36.0-48.0 [facility] [id number] 15:50:00 Test Item Value Reference Range Interpretation Comments RBC (test code = RBC) 3.95 4.20-5.40 [id number] 15:50:00 Test Item Value Reference Range Interpretation Comments Hgb (test code = Hgb) 12.4 12.0-16.0 [facility] [id number] 15:50:00 Test Item Value Reference Range Interpretation Comments WBC (test code = WBC) 10.0 3.7-10.4 [facility] [id number] 15:50:00 Test Item Value Reference Range Interpretation Comments HIV. (test code = Negative *NA*(01/06/17 HIV.) 10:50 AM) [facility] [id number] 15:50:00 Test Item Value Reference Range Interpretation Comments Hep Bs Ag (test code Negative *NA*(01/06/17 = Hep Bs Ag) 10:50 AM) [facility] [id number] 15:50:00 Test Item Value Reference Range Interpretation Comments Treponemal Scr (test Non Reactive code = Treponemal Scr) *NA*(01/06/17 10:50 AM) [facility] [id number] 15:50:00 Test Item Value Reference Range Interpretation Comments Rubella IgG (test code = Rubella IgG) 66.9 [facility] [id number] 15:50:00 Test Item Value Reference Range Interpretation Comments Hep Bs Ag (test code Negative *NA*(01/06/17 = Hep Bs Ag) 10:50 AM) [facility]
[2022-04-11] MEDS ORDERED: ONDANSETRON 4 MG (ODT) TAB ONE (15:28)
[2022-04-11] MEDS ORDERED: guaiFENesin 100 MG/5 ML UCUP ONE (15:38)
[2022-04-11] MEDS ORDERED: GUAIFENESIN/DM 5 ML UCUP PO ONE (16:00)
[2022-04-11] MEDS ORDERED: ACETAMINOPHEN 500 MG TAB ONE (16:02)
[2022-04-11 16:12] LABS: SARS-COV-2 RT PCR NEGATIVE (NEGATIVE)
--- NOTE | 2022-04-11 16:30 | RAD REPORT ---
EXAM DESCRIPTION: RAD - Chest Single View - 04/11/2022 4:22 pm CLINICAL HISTORY: CHEST PAIN COMPARISON: No comparisonsChest Single View dated 06/18/2020 FINDINGS: Lines: None. Lungs: No evidence of edema or pneumonia. Pleural: No significant pleural effusions or pneumothorax. Cardiac: The heart size is within normal limits. Mediastinum: Within normal limits. Bones: No acute fractures. Other: None IMPRESSION: No acute cardiopulmonary disease.
[2022-04-11] MEDS ORDERED: ALBUTEROL 2.5 MG/3 ML NEB SOL ONE (16:42)
[2022-04-11] MEDS ORDERED: IPRATROPIUM BROM 0.5MG/2.5ML ONE (16:42)
[2022-04-11 17:19] LABS: Absolute Lymphocytes (CBC) 1.9 K/uL (0.7-4.9); Hematocrit 32.4 % (36.0-45.0); Lymphocytes % 21.9 % (15.3-44.8); MCV 84.1 fL (80-100); MPV 8.8 fL (7.6-11.3); RBC Red Blood Cell Count 3.85 M/uL (3.86-4.86)
[2022-04-11 17:31] LABS: Bicarbonate 22 mmol/L (21-32); Glomerular Filtration Rate 131 ml/min (=/>90); Glucose Level 84 mg/dL (74-106); Magnesium 2.1 mg/dL (1.6-2.4); NT PRO-BNP 23 pg/mL (<125); Potassium 3.4 mmol/L (3.5-5.1); Sodium Level 140 mmol/L (136-145); Troponin High Sensitivity 4.2 pg/mL (<58.9)
[2022-04-11 17:35] LABS: BUN Blood Urea Nitrogen < 3 mg/dL (7-18)
--- NOTE | 2022-04-11 17:56 | EDPHYS ---
Physician Documentation [facility] Name: Tenzin Jacobs Age: 26 yrs Sex: Female : 1995 Arrival Date: 04/11/2022 Time: 15:09 Bed 8 Private MD: ED Physician Tanmay Flannery HPI: 04/11 15:30 This 26 yrs old Black Female presents to ER via EMS with complaints of General Weakness cp - CHEST DISCOMFORT, FATIGUE, COUGH. 15:30 The patient or guardian reports chest pain that is located primarily in the substernal cp area, anterior chest wall. 15:30 The pain radiates to Associated signs and symptoms: Pertinent positives: cough, cp shortness of breath, weakness, hemoptysis, Pertinent negatives: lower extremity pain, lower extremity swelling. The chest pain is described as aching. Duration: The patient or guardian reports a single episode, that is still ongoing, and worsening. Severity of pain: in the emergency department the pain is unchanged despite EMS interventions. RATOPRINTER: 15:15 4, Full Term 3, Living 3 [facility] Historical: - Allergies: 15:11 No Known Allergies; 6 - Home Meds: 15:11 None [Active]; 6 - PMHx: 15:11 None; 6 - PSHx: 15:11 None; 6 - Immunization history:: Client reports having NOT received the Covid vaccine. Flu vaccine is not up to date. - Social history:: Smoking status: Patient/guardian denies using tobacco. ROS: 15:35 Constitutional: Negative for fever, poor PO intake. cp 15:35 Eyes: Negative for injury, pain, redness, and discharge. cp 15:35 ENT: Positive for sore throat, Negative for drainage from ear(s), ear pain, difficulty swallowing, difficulty handling secretions. 15:35 Cardiovascular: Positive for chest pain, Negative for edema, palpitations. 15:35 Respiratory: Positive for cough, hemoptysis. 15:35 Abdomen/GI: Negative for abdominal pain, vomiting, diarrhea, constipation. 15:35 : Negative for urinary symptoms, vaginal bleeding. cp 15:35 Neuro: Positive for weakness, Negative for altered mental status, dizziness, headache, numbness. 15:35 All other systems are negative. Exam: 15:25 Constitutional: The patient appears in no acute distress, alert, awake, non-toxic, well cp developed, well nourished, uncomfortable. 15:25 Head/Face: Normocephalic, atraumatic. cp 15:25 Eyes: Periorbital structures: appear normal, Conjunctiva: normal, no exudate, no injection, Sclera: no appreciated abnormality, Lids and lashes: appear normal, bilaterally. 15:25 ENT: External ear(s): are unremarkable, Ear canal(s): are normal, clear, TM's: dullness, bilaterally, Nose: is normal, Mouth: Lips: moist, Oral mucosa: moist, Posterior pharynx: Airway: no evidence of obstruction, patent. 15:25 Neck: Lymph nodes: no appreciated lymphadenopathy. 15:25 Chest/axilla: Inspection: normal. 15:25 Cardiovascular: Rate: normal, Rhythm: regular, Edema: is not appreciated, JVD: is not appreciated. 15:25 Respiratory: the patient does not display signs of respiratory distress, Respirations: shallow respirations, that is mild, Breath sounds: bronchial sounds, that are mild, are heard diffusely. 15:25 Abdomen/GI: Inspection: gravid appearance, is noted, Palpation: soft, in all quadrants. 15:25 Neuro: Orientation: to person, place \T\ time. Mentation: is normal, Motor: moves all fours, strength is normal. 15:32 ECG was reviewed by the Attending Physician. cp Vital Signs: 15:15 BP 117 / 63; Pulse 82; Resp 20 S; Temp 97.4(TE); Pulse Ox 99% on R/A; Weight 110.22 kg kc6 (R); Height 5 ft. 8 in. (172.72 cm) (R); Pain 8/10; 16:40 BP 116 / 61; Pulse 81; Pulse Ox 91% on R/A; ap3 15:15 Body Mass Index 36.95 (110.22 kg, 172.72 cm) kc6 MDM: 15:10 Patient medically screened. cp 17:54 Data reviewed: vital signs, nurses notes. kb 17:54 Differential diagnosis: coronary artery disease URI, covid, pneumonia, flu. kb Consideration of Admission/Observation Escalation of care including admission/observation considered. Test considered but Not performed: CT: chest for PE considered, but d-dimer wnl. Counseling: I had a detailed discussion with the patient and/or guardian regarding: the historical points, exam findings, and any diagnostic results supporting the discharge/admit diagnosis, lab results, radiology results, the need for outpatient follow up, a family practitioner, to return to the emergency department if symptoms worsen or persist or if there are any questions or concerns that arise at home. 04/11 15:11 Order name: COVID-19/FLU A+B/RSV; Complete Time: 16:15 cp 04/11 15:40 Order name: Basic Metabolic Panel; Complete Time: 17:35 cp 04/11 15:40 Order name: CBC with Diff; Complete Time: 17:33 cp 04/11 15:40 Order name: Magnesium; Complete Time: 17:35 cp 04/11 15:40 Order name: NT PRO-BNP; Complete Time: 17:35 cp 04/11 15:40 Order name: PT-INR; Complete Time: 17:22 cp 04/11 15:40 Order name: Troponin HS; Complete Time: 17:35 cp 04/11 15:40 Order name: XRAY Chest (1 view); Complete Time: 16:40 cp 04/11 15:40 Order name: D-Dimer; Complete Time: 17:22 cp 04/11 15:11 Order name: EKG; Complete Time: 15:12 cp 04/11 15:11 Order name: EKG - Nurse/Tech; Complete Time: 15:28 cp 04/11 15:31 Order name: FHT's; Complete Time: 18:13 cp 04/11 15:40 Order name: Cardiac monitoring; Complete Time: 15:59 cp 04/11 15:40 Order name: Labs collected and sent; Complete Time: 17:10 cp 04/11 15:40 Order name: O2 Per Protocol; Complete Time: 15:40 cp 04/11 15:40 Order name: O2 Sat Monitoring; Complete Time: 15:40 cp EC:32 Rate is 86 beats/min. Rhythm is regular. TN interval is normal. QRS interval is normal. cp QT interval is normal. T waves are Inverted in lead III. Interpreted by me. Reviewed by me. Administered Medications: 15:30 Drug: Ondansetron 4 mg Route: PO; kc6 18:21 Follow up: Response: No adverse reaction [facility] 15:35 Not Given (Physician Discretion): Robitussin Pediatric (dextromethorphan) Liquid 30 mg cp PO once 15:49 Drug: Robitussin Pediatric (dextromethorphan) Liquid 15 mg Route: PO; kc6 18:20 Follow up: Response: No adverse reaction kc6 16:05 Not Given (Patient Refused): Tylenol 1000 mg PO once kc6 16:43 Drug: Albuterol 2.5 mg Route: Inhalation; kc6 18:20 Follow up: Response: No adverse reaction kc6 16:43 Drug: AtroVENT (ipratropium) Aerosol 0.5 mg Route: Inhalation; kc6 18:20 Follow up: Response: No adverse reaction kc6 Disposition: 18:26 Co-signature as Attending Physician, Tanmay Flannery MD I reviewed the patient's care rt provided by the Advanced Practice Provider and agree with the diagnosis and treatment plan. Disposition Summary: 04/11/22 17:55 Discharge Ordered Location: Home kb Condition: Stable kb Diagnosis - Acute upper respiratory infection, unspecified kb Followup: kb - With: Emergency Department - When: As needed - Reason: Worsening of condition Followup: kb - With: Private Physician - When: 2 - 3 days - Reason: Recheck today's complaints, Continuance of care, Re-evaluation by your physician Discharge Instructions: - Discharge Summary Sheet kb - Upper Respiratory Infection, Adult, Sjgl-ow-Aixa kb - Viral Respiratory Infection, Pwkc-Pz-Mame kb Forms: - Medication Reconciliation Form kb - Thank You Letter kb - Antibiotic Education kb - Prescription Opioid Use kb Signatures: Dispatcher [employer] EDMN Delmi Marie, LILIAM-C ENDBAND CUTTER HAND-Rafael Souza PA PA cp Campbell, Kaitlyn, RN RN kc6 Tanmay Flannery MD MD rt Corrections: (The following items were deleted from the chart) 18:04 15:40 IV Saline Lock ordered. cp kc6
--- NOTE | 2022-04-11 17:56 | ER ---
Nurse's Notes [facility] Name: Tenzin Jacobs Age: 26 yrs Sex: Female : 1995 Arrival Date: 04/11/2022 Time: 15:09 Bed 8 Private MD: Diagnosis: Acute upper respiratory infection, unspecified Presentation: 04/11 15:15 Chief complaint: EMS states: chest discomfort, cough, fatigue, and weakness. client is 6 currently 25 weeks with her 4th child. 15:15 Coronavirus screen: Vaccine status: Patient reports being unvaccinated. Ebola Screen: [facility] No symptoms or risks identified at this time. Initial Sepsis Screen: Does the patient meet any 2 criteria? No. Patient's initial sepsis screen is negative. Does the patient have a suspected source of infection? No. Patient's initial sepsis screen is negative. Risk Assessment: Do you want to hurt yourself or someone else? Patient reports no desire to harm self or others. Onset of symptoms was April 11, 2022. 15:15 Method Of Arrival: EMS: [facility] 15:15 Acuity: CORI 3 6 Triage Assessment: 15:15 General: Appears in no apparent distress. comfortable, ill, Behavior is calm, kc6 cooperative, appropriate for age. Pain: Complains of pain in chest. EENT: No signs and/or symptoms were reported regarding the EENT system. Neuro: Lala Agitation-Sedation Scale (RASS): 0 - Alert and Calm Level of Consciousness is awake, alert, obeys commands, Oriented to person, place, time, situation, Appropriate for age. Cardiovascular: Capillary refill < 3 seconds. Respiratory: Reports cough that is Airway is patent Trachea midline Respiratory effort is even, unlabored, Respiratory pattern is regular, symmetrical. GI: No signs and/or symptoms were reported involving the gastrointestinal system. : No signs and/or symptoms were reported regarding the genitourinary system. Derm: No signs and/or symptoms reported regarding the dermatologic system. Skin is intact, Skin is pink, warm \T\ dry. Musculoskeletal: No signs and/or symptoms reported regarding the musculoskeletal system. Circulation, motion, and sensation intact. Capillary refill < 3 seconds, Range of motion: intact in all extremities. INSPECTOR ADVANCED COMPOSITE: 15:15 4, Full Term 3, Living 3 kc6 Historical: - Allergies: 15:11 No Known Allergies; kc6 - Home Meds: 15:11 None [Active]; kc6 - PMHx: 15:11 None; kc6 - PSHx: 15:11 None; kc6 - Immunization history:: Client reports having NOT received the Covid vaccine. Flu vaccine is not up to date. - Social history:: Smoking status: Patient/guardian denies using tobacco. Screenin:20 [facility] ED Fall Risk Assessment (Adult) History of falling in the last 3 months, kc6 including since admission No falls in past 3 months (0 pts) Confusion or Disorientation No (0 pts) Intoxicated or Sedated No (0 pts) Impaired Gait No (0 pts) Mobility Assist Device Used No (0 pt) Altered Elimination No (0 pt) Score/Fall Risk Level 0 - 2 = Low Risk Oriented to surroundings, Maintained a safe environment, Educated pt \T\ family on fall prevention, incl call for assistance when getting out of bed, Assessed \T\ reinforced patient's understanding of fall precautions, Hourly rounding (assess needs \T\ fall precautionary measures) done. Abuse screen: Denies threats or abuse. Denies injuries from another. Nutritional screening: No deficits noted. Tuberculosis screening: No symptoms or risk factors identified. Assessment: 16:15 Reassessment: Patient appears in no apparent distress at this time. No changes from [facility] previously documented assessment. Patient and/or family updated on plan of care and expected duration. Pain level reassessed. Patient is alert, oriented x 3, equal unlabored respirations, skin warm/dry/pink. 17:15 Reassessment: Patient appears in no apparent distress at this time. No changes from [facility] previously documented assessment. Patient and/or family updated on plan of care and expected duration. Pain level reassessed. Patient is alert, oriented x 3, equal unlabored respirations, skin warm/dry/pink. 18:15 Reassessment: Patient appears in no apparent distress at this time. No changes from [facility] previously documented assessment. Patient and/or family updated on plan of care and expected duration. Pain level reassessed. Patient is alert, oriented x 3, equal unlabored respirations, skin warm/dry/pink. Vital Signs: 15:15 BP 117 / 63; Pulse 82; Resp 20 S; Temp 97.4(TE); Pulse Ox 99% on R/A; Weight 110.22 kg kc6 (R); Height 5 ft. 8 in. (172.72 cm) (R); Pain 8/10; 16:40 BP 116 / 61; Pulse 81; Pulse Ox 91% on R/A; ap3 15:15 Body Mass Index 36.95 (110.22 kg, 172.72 cm) kc6 ED Course: 15:09 Patient arrived in ED. eb 15:10 Rafael Brownlee PA is PHCP. cp 15:10 Tanmay Flannery MD is Attending Physician. cp 15:10 Irene Erickson, SERAFIN is Primary Nurse. kc6 15:15 Arm band placed on. kc6 15:28 COVID-19/FLU A+B/RSV Sent. kc6 15:29 EKG done, by ED staff, reviewed by Rafael KRISHNAMURTHY. mm9 15:29 Patient has correct armband on for positive identification. Bed in low position. Call mm9 light in reach. Side rails up X2. Warm blanket given. Pillow given. monitoring and evaluation advisor on. Pulse ox on. NIBP on. 15:30 Missed attempt(s): 22 gauge in right antecubital area. mm9 15:43 Triage completed. kc6 16:03 PHCP role handed off by Rafael Brownlee PA kb 16:03 Delmi Marie FNP-C is PHCP. kb 16:24 XRAY Chest (1 view) In Process Unspecified. EDMS 17:05 Initial lab(s) drawn, by me, sent to lab. Missed attempt(s): 22 gauge in left wrist. aa5 Bleeding controlled, band aid applied, catheter tip intact. 18:21 No provider procedures requiring assistance completed. Patient did not have IV access kc6 during this emergency room visit. Administered Medications: 15:30 Drug: Ondansetron 4 mg Route: PO; kc6 18:21 Follow up: Response: No adverse reaction kc6 15:35 Not Given (Physician Discretion): Robitussin Pediatric (dextromethorphan) Liquid 30 mg cp PO once 15:49 Drug: Robitussin Pediatric (dextromethorphan) Liquid 15 mg Route: PO; kc6 18:20 Follow up: Response: No adverse reaction kc6 16:05 Not Given (Patient Refused): Tylenol 1000 mg PO once kc6 16:43 Drug: Albuterol 2.5 mg Route: Inhalation; kc6 18:20 Follow up: Response: No adverse reaction kc6 16:43 Drug: AtroVENT (ipratropium) Aerosol 0.5 mg Route: Inhalation; kc6 18:20 Follow up: Response: No adverse reaction kc6 Medication: 18:21 VIS not applicable for this client. kc6 Outcome: 17:55 Discharge ordered by . alanis 18:21 Discharged to home ambulatory, with significant other. kc6 18:21 Condition: stable 18:21 Discharge instructions given to patient, Instructed on discharge instructions, follow up and referral plans. Demonstrated understanding of instructions, follow-up care. 18:21 Patient left the ED. kc6 Signatures: Dispatcher [employer] EDMS Delmi Marie, ACID SPLICER-C ACID SPLICER-Princess Smith, RN RN aa5 Rafael Brownlee PA PA cp Prokisch, Amanda, RN RN chase3 Charu Rodriguez Kaitlyn, RN RN kc6 Naomy Eastman mm9
[2022-04-11 18:26] VITALS: TEMP 97.4
[2022-04-11 18:27] VITALS: BP 116/61; O2SAT 91
== END 2022-04-11 18:21 | disposition home or self-care (01) ==
LOC: ER 15:07
DX: J06.9 Acute upper respiratory infection, unspecified (principal); Z20.822 Contact with and (suspected) exposure to COVID-19
CPT/HCPCS: 85025; 80048; 36415; 83735; 85610; 85379; 84484; 83880; 0241U; 71045; 99285; J7613; J7644; Q0162; 93005

== ENCOUNTER 2023-08-14 19:38 | Emergency (ER) | payer OTHER ==
[2023-08-14 21:08] LABS: Absolute Lymphocytes (CBC) 0.8 K/uL (0.7-4.9); Absolute Monocytes 0.5 K/uL (0.1-1.3); Absolute Neutrophil 6.6 K/uL (1.8-8.0); Basophils % 0.5 % (0-1.3); Eosinophils % 0.2 % (0-4.4); Hematocrit 34.3 % (36.0-45.0); Lymphocytes % 10.4 % (15.3-44.8); MCHC 31.9 g/dL (32.0-36.0); MPV 8.8 fL (7.6-11.3); Monocytes % 6.8 % (3.3-12.3); Neutrophils % 82.1 % (41.7-73.7); Platelets 223 thou/uL (152-406); RBC Red Blood Cell Count 3.65 M/uL (3.86-4.86)
[2023-08-14 21:16] LABS: PTT, Activated Partial Thromb 28.2 SECONDS (24.3-36.9); Protime INR 1.09
[2023-08-14] MEDS ORDERED: THIAMINE 200 MG/2 ML INJ ONE (21:19)
[2023-08-14] MEDS ORDERED: MULTIVITAMINS 10 ML VIAL (INJ) IV ONE (21:19)
[2023-08-14] MEDS ORDERED: FOLIC ACID 5 MG/ML VIAL ONE (21:20)
[2023-08-14] MEDS ORDERED: NA CHLORIDE 0.9% 2,000 ML ONE (21:21)
[2023-08-14 21:30] LABS: ALT/SGPT 21 U/L (13-56); AST/SGOT 22 U/L (15-37); Albumin 3.5 g/dL (3.4-5.0); Albumin/Globulin Ratio 0.9 (1.1-1.8); Alkaline Phosphatase 90 U/L (45-117); Anion Gap 12.5 mEq/L (5.0-15.0); BUN Blood Urea Nitrogen 5 mg/dL (7-18); Bicarbonate 21 mEq/L (21-32); Bilirubin Total 0.4 mg/dL (0.2-1.0); Globulin 3.8 g/dL (2.3-3.5); Glomerular Filtration Rate 89 ml/min (=/>90); Glucose Level 83 mg/dL (74-106); Potassium 3.5 mEq/L (3.5-5.1); Protein, Total 7.3 g/dL (6.4-8.2); Sodium Level 139 mEq/L (136-145)
[2023-08-14 21:33] LABS: Bilirubin Direct < 0.2 mg/dL (0-0.2); Bilirubin Indirect, Calculated 0.2 mg/dL (0.2-0.8)
[2023-08-14 22:27] LABS: Specific Gravity < 1.005 (1.005-1.030)
[2023-08-14 22:28] LABS: Specific Gravity < 1.005 (1.005-1.030); Sqamous Epithelial <5 /HPF (None Seen); Urine Bacteria None Seen /HPF (<20); Urine Bilirubin NEGATIVE (Negative); Urine Blood Trace (Negative); Urine Clarity Turbid (Clear); Urine Color Colorless (Yellow); Urine Culture Reflex Order NOT NEEDED; Urine Glucose NEGATIVE (Negative); Urine Ketones NEGATIVE (Negative); Urine Microscopic Reflex YN ORDER UMIC; Urine Nitrite NEGATIVE (Negative); Urine Protein NEGATIVE (Negative); Urine RBC <5 /HPF (None Seen); Urine Urobilinogen Normal (Normal); Urine WBC <5 /HPF (<5)
[2023-08-14 22:32] LABS: Barbiturates NEGATIVE (NEGATIVE); Benzodiazepines NEGATIVE (NEGATIVE); Cocaine NEGATIVE (NEGATIVE); METHAMPHETAM NEGATIVE (NEGATIVE); Methadone NEGATIVE (NEGATIVE); Opiates NEGATIVE (NEGATIVE); Phencyclidine NEGATIVE (NEGATIVE); THC Cannibis POSITIVE (NEGATIVE)
--- NOTE | 2023-08-15 06:16 | ER ---
Nurse's Notes [facility] Name: Tenzin Jacobs Age: 27 yrs Sex: Female : 1995 Arrival Date: 08/14/2023 Time: 19:38 Bed 14 Private MD: Diagnosis: Acute Drug Induced Psychosis , Alcohol intoxication, Cannabis Intoxication Presentation: 08/13 19:47 Chief complaint: EMS states: AMS. 19:47 Method Of Arrival: EMS: [facility] 19:47 Acuity: CORI 2 kl 20:11 Coronavirus screen: Vaccine status: Patient reports being unvaccinated. Vaccination kb3 status unknown At this time, unable to obtain information related to travel outside the [place] Ebola Screen: Unable to complete the Ebola screening because: The patient is disoriented. Initial Sepsis Screen: Does the patient meet any 2 criteria? No. Patient's initial sepsis screen is negative. Does the patient have a suspected source of infection? No. Patient's initial sepsis screen is negative. Risk Assessment: Do you want to hurt yourself or someone else? Patient reports no desire to harm self or others. Onset of symptoms is unknown. 08/14 01:12 Note spoke with patient mother updated patient med history and contact information. Triage Assessment: 08/13 19:47 General: Appears distressed, obese, unkempt, Behavior is anxious, combative, restless, kl uncooperative, Smells of alcohol. 20:00 General: Received care of patient from [facility]. Pt is yelling non-sensical speak, kb3 running through the ER, verbalizing paranoia, speaking to Wilver, delusional. Unable to redirect patient. ANGIE SAGASTUME called for assistance. Farheen Jackson called. Pt was restrained by police until medications could be administered as ordered. PT placed in 4-point restraints for pt and staff safety. Sitter at bedside. . Historical: - Allergies: 20:12 Unable to Assess; kb3 - PMHx: 08/14 01:11 Bipolar disorder; Schizophrenia; kl - PSHx: 01:11 None; kl - Immunization history:: Unable to assess. - Infectious Disease History:: Unable to assess. - Family history:: not pertinent. - Social history:: Unable to assess, Smoking status: unknown. Screenin/31 20:18 [facility] ED Fall Risk Assessment (Adult) History of falling in the last 3 months, kb3 including since admission No falls in past 3 months (0 pts) Confusion or Disorientation Yes (5 pts) Intoxicated or Sedated Yes (3 pts) Impaired Gait Yes (1 pt) Mobility Assist Device Used No (0 pt) Altered Elimination No (0 pt) Score/Fall Risk Level 3 or more points = High Risk Oriented to surroundings, Maintained a safe environment, Educated pt \T\ family on fall prevention, incl call for assistance when getting out of bed, Assessed \T\ reinforced patient's understanding of fall precautions, Hourly rounding (assess needs \T\ fall precautionary measures) done. Abuse screen: Unable to assess. Nutritional screening: No deficits noted. Tuberculosis screening: unable to assess. Assessment: 19:38 General: Behavior is combative, inappropriate for age, uncooperative, hostile. Pain: lg3 Denies pain. Neuro: Lala Agitation-Sedation Scale (RASS): +4 Combative Level of Consciousness is awake, Moves all extremities. Gait is steady, Speech is normal. Cardiovascular: No deficits noted. Respiratory: No deficits noted. Airway is patent Respiratory effort is even, unlabored, Respiratory pattern is regular, symmetrical. GI: Abdomen is round non-distended, obese. : No deficits noted. EENT: No deficits noted. Derm: Skin is intact, is healthy with good turgor, Skin is diaphoretic, Skin is normal. Musculoskeletal: No deficits noted. Circulation, motion, and sensation intact. Range of motion: intact in all extremities. 20:00 Neuro: Lala Agitation-Sedation Scale (RASS): +4 Combative Level of Consciousness is lg3 awake. Musculoskeletal: Circulation, motion, and sensation intact. 21:55 Reassessment: Patient appears in no apparent distress at this time. General:. Neuro: lg3 Lala Agitation-Sedation Scale (RASS): -2 Light sedation Level of Consciousness is confused. Respiratory: No deficits noted. Airway is patent Respiratory effort is even, unlabored, Respiratory pattern is regular, symmetrical. 23:30 Reassessment: Patient appears in no apparent distress at this time. quietly resting. lg3 06/01 01:03 Reassessment: Patient appears in no apparent distress at this time. quietly resting. lg3 03:03 Reassessment: Patient appears in no apparent distress at this time. General:. Neuro: lg3 Lala Agitation-Sedation Scale (RASS): -2 Light sedation. Respiratory: No deficits noted. Airway is patent Respiratory effort is even, unlabored, Respiratory pattern is regular, symmetrical. 05:04 Reassessment: Patient appears in no apparent distress at this time. No changes from lg3 previously documented assessment. 06:26 General: PT to DC once able to fully awaken and ambulate safely. lg3 07:35 Reassessment: Patient appears in no apparent distress at this time. Patient and/or db family updated on plan of care and expected duration. Pain level reassessed. Patient is alert, oriented x 3, equal unlabored respirations, skin warm/dry/pink. PT'S RIDE IS HERE FOR TRANSPORT. ESCORTED PT TO FRONT WAITING ROOM. 07:35 General: Appears in no apparent distress. comfortable, Behavior is calm, cooperative. db Vital Signs: 08/13 20:30 BP 139 / 80; Pulse 91; Resp 17 S; Temp 97.6(O); Pulse Ox 99% on R/A; Height 5 ft. 9 in. lg3 (R); 22:14 Weight 109.32 kg; rv1 06/ 03:03 BP 131 / 84; Pulse 84; Resp 16 S; Pulse Ox 99% on R/A; lg3 05:03 BP 126 / 71; Pulse 79; Resp 17 S; Pulse Ox 99% on R/A; lg3 06:56 BP 124 / 82; Pulse 87; Resp 17 S; Pulse Ox 98% on R/A; lg3 07:15 BP 117 / 78; Pulse 85; Resp 18; Temp 97.8; Pulse Ox 96% ; db Jem Coma Score: 08/13 19:54 Eye Response: spontaneous(4). Motor Response: obeys commands(6). Verbal Response: coleman oriented(5). Total: 15. ED Course: 19:39 Patient arrived in ED. kb3 19:39 Rafael Guthrie MD is Attending Physician. [facility] 19:39 Safety checks: Sitter present:. ty 19:47 Triage completed. kl 19:58 Four point soft restraints applied for patient safety. ty 20:00 Arm band placed on right wrist. Patient placed in an exam room, on a stretcher. kb3 20:03 Attending Physician role handed off by Rafael Guthrie MD sp4 20:03 Chevy Bradford MD is Attending Physician. sp4 20:17 Ellyn Ahmadi, RN is Primary Nurse. lg3 20:18 Bed in low position. Side rails up X2. Adult w/ patient. Patient is placed in psych kb3 hold. 21:05 Inserted saline lock: 22 gauge in right upper arm, using aseptic technique. Blood lg3 collected. 21:05 Initial lab(s) drawn, by ED staff, sent to lab. EKG done, by ED staff, reviewed by marc Bradford MD. 21:06 Test, Serum Sent. lg3 21:06 Acetaminophen Sent. lg3 21:06 Basic Metabolic Panel Sent. lg3 21:06 CBC with Diff Sent. lg3 21:06 ETOH Level Sent. lg3 21:06 Hepatic Function Sent. lg3 21:06 PT-INR Sent. lg3 21:07 Ptt, Activated Sent. lg3 21:07 Salicylate Sent. lg3 22:13 Test, Urine Sent. rv1 22:14 Urinalysis w/ reflexes Sent. rv1 22:14 Urine Drug Screen Sent. rv1 08/14 06:54 IV discontinued, intact, bleeding controlled, No redness/swelling at site. Pressure lg3 dressing applied. 07:16 Attending Physician role handed off by Chevy Bradford MD [facility] 07:16 Rafael Guthrie MD is Attending Physician. [place] 07:37 Provided Education on: DISCHARGE AND FOLLOWUP. Pulse ox on. NIBP on. db 07:37 No provider procedures requiring assistance completed. db Restraints: 08/13 19:45 Violent/Self Destructive Restraint: Restraint Order: Initial/Renewal: Initial order kb3 obtained. Initiated August 14, 2023 at 19:47 Staff present during the initiation of restraint: Ellyn Ahmadi RN, Torie Ruelas RN, Kayla Carter, Marilyn Corley RN. Family Notification/Education: Education provided to family/significant other/legally authorized construction representative. Monitoring: Respiratory status Respirations even/unlabored, no distress. Circulation: Skin warm and dry, capillary refill WNL. Skin integrity: Intact, healthy with good turgor. No injuries due to Restraints noted. Mental status: agitated/restless, confused. verbally abusive, Observed actions/behavior: destructive, violent, severely aggressive, harming self/others, confusion/disorientation, difficulty remembering or follow instructions, impaired decision making, repeated attempts to get up from bed/chair without assistance. unable to follow instructions, verbally abusive, Less restrictive alternatives attempted: decreased environmental stimuli, 1:1 patient care, placed near Nurse station, reoriented to location, Alternative interventions: Ineffective. Clinical justification for use: Violent/self destructing behavior impacts therapeutic environment. Poses a serious danger to physical safety of self \T\ others. Restraint status: Soft wrist restraint (Right) Started. Soft wrist restraint (Left) Started. Soft ankle restraint (Right) Started. Soft ankle restraint (Left) Started. Readiness for Discontinue: Criteria not met. Patient still violent/self destructive and Alternative interventions still ineffective. Restraint continued. ROM performed. Hydration/Food: Patient declined. Elimination: Patient declined. Bathing/Oral Hygiene: Patient declined. Cognition poor judgment, poor safety awareness, impulsive, poor attention/concentration unable to follow commands, Assumed responsibility of patient in restraints. Time restraints initiated: August 14, 2023 at 19:47 Circumstances for use: Safety of staff. Safety of patient. Current physical, emotional \T\ behavioral status: agitated/restless, verbally abusive, violent. Medications administered:. 20:00 Violent/Self Destructive Restraint: Monitoring: Respiratory status Respirations kb3 even/unlabored, no distress. Circulation: Skin warm and dry, capillary refill WNL. Skin integrity: Intact, healthy with good turgor. No injuries due to Restraints noted. Mental status: agitated/restless, confused. verbally abusive, Observed actions/behavior: destructive, violent, severely aggressive, harming self/others, confusion/disorientation, difficulty remembering or follow instructions, impaired decision making, repeated attempts to get up from bed/chair without assistance. unable to follow instructions, Less restrictive alternatives attempted: decreased environmental stimuli, 1:1 patient care, placed near Nurse station, reoriented to location, Alternative interventions: Ineffective. Clinical justification for use: Violent/self destructing behavior impacts therapeutic environment. Poses a serious danger to physical safety of self \T\ others. Restraint status: Soft wrist restraint (Right) Continued. Soft wrist restraint (Left) Continued. Soft ankle restraint (Right) Continued. Soft ankle restraint (Left) Continued. Readiness for Discontinue: Criteria not met. Patient still violent/self destructive and Alternative interventions still ineffective. Restraint continued. 20:15 Violent/Self Destructive Restraint: Monitoring: Respiratory status Respirations kb3 even/unlabored, no distress. Circulation: Skin warm and dry, capillary refill WNL. Skin integrity: Intact, healthy with good turgor. No injuries due to Restraints noted. Mental status: agitated/restless, confused. verbally abusive, Observed actions/behavior: destructive, violent, severely aggressive, harming self/others, confusion/disorientation, difficulty remembering or follow instructions, impaired decision making, repeated attempts to get up from bed/chair without assistance. unable to follow instructions, Less restrictive alternatives attempted: decreased environmental stimuli, 1:1 patient care, placed near Nurse station, reoriented to location, Alternative interventions: Ineffective. Clinical justification for use: Violent/self destructing behavior impacts therapeutic environment. Poses a serious danger to physical safety of self \T\ others. Restraint status: Soft wrist restraint (Right) Continued. Soft wrist restraint (Left) Continued. Soft ankle restraint (Right) Continued. Soft ankle restraint (Left) Continued. Readiness for Discontinue: Criteria not met. Patient still violent/self destructive and Alternative interventions still ineffective. Restraint continued. 20:30 Violent/Self Destructive Restraint: Monitoring: Respiratory status Respirations kb3 even/unlabored, no distress. Circulation: Skin warm and dry, capillary refill WNL. Skin integrity: Intact, healthy with good turgor. No injuries due to Restraints noted. Mental status: agitated/restless, confused. verbally abusive, Observed actions/behavior: destructive, violent, severely aggressive, harming self/others, confusion/disorientation, difficulty remembering or follow instructions, impaired decision making, repeated attempts to get up from bed/chair without assistance. unable to follow instructions, Less restrictive alternatives attempted: decreased environmental stimuli, 1:1 patient care, placed near Nurse station, reoriented to location, Alternative interventions: Ineffective. Clinical justification for use: Violent/self destructing behavior impacts therapeutic environment. Poses a serious danger to physical safety of self \T\ others. Restraint status: Soft wrist restraint (Right) Continued. Soft wrist restraint (Left) Continued. Soft ankle restraint (Right) Continued. Soft ankle restraint (Left) Continued. Readiness for Discontinue: Criteria not met. Patient still violent/self destructive and Alternative interventions still ineffective. Restraint continued. 20:45 Violent/Self Destructive Restraint: Monitoring: Respiratory status Respirations lg3 even/unlabored, no distress. Circulation: Skin warm and dry, capillary refill WNL. Skin integrity: Intact, healthy with good turgor. No injuries due to Restraints noted. Mental status: agitated/restless, confused. Observed actions/behavior: destructive, violent, severely aggressive, confusion/disorientation, difficulty remembering or follow instructions, impaired decision making, repeated attempts to get up from bed/chair without assistance. unable to follow instructions, Less restrictive alternatives attempted: decreased environmental stimuli, 1:1 patient care, placed near Nurse station, reoriented to location, Alternative interventions: Ineffective. Clinical justification for use: Violent/self destructing behavior impacts therapeutic environment. Poses a serious danger to physical safety of self \T\ others. Restraint status: Soft wrist restraint (Right) Soft wrist restraint (Left) Continued. Soft ankle restraint (Right) Soft ankle restraint (Left) Discontinued. Readiness for Discontinue: Criteria not met. Patient still violent/self destructive and Alternative interventions still ineffective. Restraint continued. ROM performed. 21:00 Violent/Self Destructive Restraint: Monitoring: Respiratory status Respirations lg3 even/unlabored, no distress. Circulation: Skin warm and dry, capillary refill WNL. Skin integrity: Intact, healthy with good turgor. No injuries due to Restraints noted. Mental status: confused. Observed actions/behavior: confusion/disorientation, difficulty remembering or follow instructions, impaired decision making, Restraint status: Soft wrist restraint (Right) Discontinued. Soft wrist restraint (Left) Discontinued. Restraint discontinuation: Discontinued at August 14, 2023 at 21:00 Effective alternative interventions: 1:1 patient care, placed near Nurse station, reoriented to location, verbal de-escalation performed. Administered Medications: 19:46 Drug: Geodon IM 40 mg IM once Route: IM; Site: left vastus lateralis; kl 21:06 Follow up: Response: No adverse reaction; Marked relief of symptoms; Anxiety decreased; lg3 RASS: Drowsy (-1) 19:46 Drug: LORazepam IM 2 mg IM once Route: IM; Site: left vastus lateralis; kl 21:06 Follow up: Response: No adverse reaction; Marked relief of symptoms; Anxiety decreased lg3 21:31 Drug: NS 0.9% IV 1000 ml IV at 1 bolus Per protocol; 1000 mL bolus Route: IV; Rate: 1 lg3 bolus; Site: right upper arm; 08/14 06:54 Follow up: Response: No adverse reaction; IV Status: Completed infusion; IV Intake: lg3 1000ml 08/13 21:31 Drug: Banana Bag - (Multivitamin IV 1 amp, NS 0.9% IV 1000 ml, Thiamine IV 100 mg, lg3 foLIC Acid IVPB 1 mg) IV at 250 ml/hr once Route: IV; Rate: 250 ml/hr; Site: right upper arm; 08/14 06:54 Follow up: Response: No adverse reaction; IV Status: Completed infusion; IV Intake: lg3 1000ml Medication: 08/13 20:18 VIS not applicable for this client. kb3 Intake: 08/14 06:54 IV: 1000ml; Total: 1000ml. lg3 06:54 IV: 1000ml; Total: 2000ml. lg3 Outcome: 06:15 Discharge ordered by . sp4 07:37 Discharged to home ambulatory, with family, db 07:37 Condition: stable 07:37 Discharge instructions given to patient, Instructed on discharge instructions, follow up and referral plans. Prescriptions given X 1, 07:39 Patient left the ED. db Signatures: Jovanna Corley RN RN kl Anderson, Corey, MD MD cha Able, Lacie, RN RN lg3 Torie Ruelas RN RN kb3 Eleni Eli RN RN Deisy Levy rv1 Chevy Bradford MD MD sp4 [place] ty Corrections: (The following items were deleted from the chart) 08/13 20:00 19:58 Safety checks: Sitter present: ty ty 20: 19:58 Four point soft restraints applied ty ty 20:13 20:12 Allergies: Unknown; kb3 kb3 08/14 07:36 07:35 Reassessment: PT'S RIDE IS HERE FOR TRANSPORT. ESCORTED PT TO FRONT WAITING ROOM db db
--- NOTE | 2023-08-15 06:16 | EDPHYS ---
Physician Documentation [facility] Name: Tenzin Jacobs Age: 27 yrs Sex: Female : 1995 Arrival Date: 08/14/2023 Time: 19:38 Bed 14 Private MD: ED Physician Rafael Guthrie HPI: 08/13 19:54 This 27 yrs old Black Female presents to ER via EMS with complaints of acute psychosis. coleman 19:54 The patient presents to the emergency department with psychosis, has delusions. Onset: [facility] The symptoms/episode began/occurred today. Past psychiatric history: Prior diagnosis: schizophrenia, Psychiatric medications include: unknown. The patient presents with confusion. Possible causes: drug use, alcohol, head injury, low blood sugar. Associated signs and symptoms: Pertinent positives: agitation, combativeness, confusion. Historical: - Allergies: 20:12 Unable to Assess; kb3 - PMHx: 08/14 01:11 Bipolar disorder; Schizophrenia; kl - PSHx: 01:11 None; kl - Immunization history:: Unable to assess. - Infectious Disease History:: Unable to assess. - Family history:: not pertinent. - Social history:: Unable to assess, Smoking status: unknown. ROS: 08/13 19:54 Constitutional: Negative for fever, chills, and weight loss, Eyes: Negative for injury, coleman pain, redness, and discharge, ENT: Negative for injury, pain, and discharge, Neck: Negative for injury, pain, and swelling, Cardiovascular: Negative for chest pain, palpitations, and edema, Respiratory: Negative for shortness of breath, cough, wheezing, and pleuritic chest pain, Abdomen/GI: Negative for abdominal pain, nausea, vomiting, diarrhea, and constipation, Back: Negative for injury and pain, : Negative for injury, bleeding, discharge, and swelling, MS/Extremity: Negative for injury and deformity, Skin: Negative for injury, rash, and discoloration, Allergy/Immunology: Negative for hives, rash, and allergies, Endocrine: Negative for neck swelling, polydipsia, polyuria, polyphagia, and marked weight changes, Hematologic/Lymphatic: Negative for swollen nodes, abnormal bleeding, and unusual bruising, Neuro: Positive for altered mental status, Psych: Positive for anxiety, psychotic, Exam: 19:54 Constitutional: This is a well developed, well nourished patient who is awake, alert, coleman and in no acute distress. Head/Face: Normocephalic, atraumatic. Eyes: Pupils equal round and reactive to light, extra-ocular motions intact. Lids and lashes normal. Conjunctiva and sclera are non-icteric and not injected. Cornea within normal limits. Periorbital areas with no swelling, redness, or edema. ENT: Nares patent. No nasal discharge, no septal abnormalities noted. Tympanic membranes are normal and external auditory canals are clear. Oropharynx with no redness, swelling, or masses, exudates, or evidence of obstruction, uvula midline. Mucous membranes moist. Neck: Trachea midline, no thyromegaly or masses palpated, and no cervical lymphadenopathy. Supple, full range of motion without nuchal rigidity, or vertebral point tenderness. No Meningismus. Chest/axilla: Normal chest wall appearance and motion. Nontender with no deformity. No lesions are appreciated. Cardiovascular: Regular rate and rhythm with a normal S1 and S2. No gallops, murmurs, or rubs. Normal PMI, no JVD. No pulse deficits. Respiratory: Lungs have equal breath sounds bilaterally, clear to auscultation and percussion. No rales, rhonchi or wheezes noted. No increased work of breathing, no retractions or nasal flaring. Abdomen/GI: Soft, non-tender, with normal bowel sounds. No distension or tympany. No guarding or rebound. No evidence of tenderness throughout. Back: No spinal tenderness. No costovertebral tenderness. Full range of motion. Skin: Warm, dry with normal turgor. Normal color with no rashes, no lesions, and no evidence of cellulitis. MS/ Extremity: Pulses equal, no cyanosis. Neurovascular intact. Full, normal range of motion. Neuro: Awake and alert, GCS 15, oriented to person, place, time, and situation. Cranial nerves II-XII grossly intact. Motor strength 5/5 in all extremities. Sensory grossly intact. Cerebellar exam normal. Normal gait. 19:54 Psych: Behavior/mood is anxious, Affect is animated, Not oriented to place, time, Patient has no thoughts/intents to harm self or others. Judgement / Insight is impaired. Delusions/hallucinations are present and described as acting bizarre, psychotic. 08/14 06:11 ECG was reviewed by the Attending Physician. EKG 20:39 NSR at 65 bpm sp4 Vital Signs: 08/13 20:30 BP 139 / 80; Pulse 91; Resp 17 S; Temp 97.6(O); Pulse Ox 99% on R/A; Height 5 ft. 9 in. lg3 (R); 22:14 Weight 109.32 kg; rv1 08/14 03:03 BP 131 / 84; Pulse 84; Resp 16 S; Pulse Ox 99% on R/A; lg3 05:03 BP 126 / 71; Pulse 79; Resp 17 S; Pulse Ox 99% on R/A; lg3 06:56 BP 124 / 82; Pulse 87; Resp 17 S; Pulse Ox 98% on R/A; lg3 07:15 BP 117 / 78; Pulse 85; Resp 18; Temp 97.8; Pulse Ox 96% ; db Van Coma Score: 08/13 19:54 Eye Response: spontaneous(4). Motor Response: obeys commands(6). Verbal Response: coleman oriented(5). Total: 15. MDM: 19:39 Patient medically screened. coleman 19:47 Patient medically screened. coleman 19:59 Differential diagnosis: drug withdrawal. acute psychotic break, depression, psychosis coleman secondary to non-compliance. Differential Diagnosis: electrolyte abnormality, alcohol intoxication, hypoglycemia, overdose, UTI, volume depletion. Data reviewed: vital signs, nurses notes, lab test result(s), EKG. Consideration of Admission/Observation Escalation of care including admission/observation considered. I considered the following discharge prescriptions or medication management in the emergency department Medications were administered in the Emergency Department. See MAR. Independent interpretation of the following test(s) in the Emergency Department EKG: See my EKG interpretation above. Test considered but Not performed: CT: no ct head. Historians other than the Patient: EMS: ems well informed. Care significantly affected by the following chronic conditions: paranoid schizophrenia. 08/14 06:18 ED course: Patient apparently was found by the police as she was walking the streets in sp4 just her T-shirt and underwear.. Patient reports she is smoked cannabis and also had some alcohol. Patient was brought to the emergency room where she was agitated running around the nursing station screaming and was generally combative and uncooperative. Patient was given Geodon 40 mg IM also lorazepam 2 mg IM. Patient was allowed to rest and given IV hydration. At 6:18 AM patient's is feeling better she is stable for discharge home. Advised strongly to stay away from alcohol and cannabis. . 08/13 19:40 Order name: Acetaminophen; Complete Time: 22:34 [facility] 08/13 19:40 Order name: Basic Metabolic Panel; Complete Time: 22:34 [facility] 08/13 19:40 Order name: CBC with Diff; Complete Time: :34 [facility] 08/13 19:40 Order name: ETOH Level; Complete Time: :34 [facility] 08/13 19:40 Order name: Hepatic Function; Complete Time: :34 [facility] 08/13 19:40 Order name: PT-INR; Complete Time: :34 [facility] 08/13 19:40 Order name: Test, Urine; Complete Time: :34 [facility] 08/13 19:40 Order name: Ptt, Activated; Complete Time: :34 [facility] 08/13 19:40 Order name: Salicylate; Complete Time: :34 [facility] 08/13 19:40 Order name: Urinalysis w/ reflexes; Complete Time: :34 [facility] 08/13 19:40 Order name: Urine Drug Screen; Complete Time: :34 [facility] 08/13 20:03 Order name: Test, Serum; Complete Time: :34 sp4 08/13 19:40 Order name: EKG; Complete Time: 19:40 [facility] 08/13 19:40 Order name: EKG - Nurse/Tech; Complete Time: 20:50 [facility] 08/13 19:40 Order name: IV Saline Lock; Complete Time: 21:06 [facility] 08/13 19:40 Order name: Labs collected and sent; Complete Time: 21:06 [facility] 08/13 19:40 Order name: Suicide Screening ([place]); Complete Time: 21:06 [facility] 08/13 19:40 Order name: Restraint:Violent/Self Destructive (Adult:18yo or >); Complete Time: 20:22 [facility] EC:11 Rate is 65 beats/min. Rhythm is regular, Normal Sinus Rhythm. QRS [place] is Normal. [place] sp4 interval is normal. QRS interval is normal. QT interval is normal. No Q waves. T waves are Normal. No ST changes noted. Clinical impression: No evidence of ischemia. Interpreted by me. Reviewed by me. Administered Medications: 08/13 19:46 Drug: Geodon IM 40 mg IM once Route: IM; Site: left vastus lateralis; kl 21:06 Follow up: Response: No adverse reaction; Marked relief of symptoms; Anxiety decreased; lg3 RASS: Drowsy (-1) 19:46 Drug: LORazepam IM 2 mg IM once Route: IM; Site: left vastus lateralis; kl 21:06 Follow up: Response: No adverse reaction; Marked relief of symptoms; Anxiety decreased lg3 21:31 Drug: NS 0.9% IV 1000 ml IV at 1 bolus Per protocol; 1000 mL bolus Route: IV; Rate: 1 lg3 bolus; Site: right upper arm; 08/14 06:54 Follow up: Response: No adverse reaction; IV Status: Completed infusion; IV Intake: lg3 1000ml 08/13 21:31 Drug: Banana Bag - (Multivitamin IV 1 amp, NS 0.9% IV 1000 ml, Thiamine IV 100 mg, lg3 foLIC Acid IVPB 1 mg) IV at 250 ml/hr once Route: IV; Rate: 250 ml/hr; Site: right upper arm; 08/14 06:54 Follow up: Response: No adverse reaction; IV Status: Completed infusion; IV Intake: lg3 1000ml Disposition Summary: 08/15/23 06:15 Discharge Ordered Notes: Location: Home sp4 Problem: new sp4 Symptoms: have improved sp4 Condition: Stable sp4 Diagnosis - Acute Drug Induced Psychosis , Alcohol intoxication, Cannabis Intoxication sp4 Followup: sp4 - With: Private Physician - When: 7 - 10 days - Reason: Recheck today's complaints Discharge Instructions: - Discharge Summary Sheet sp4 - Alcohol Intoxication, [id number] sp4 Forms: - Patient Portal Instructions sp4 Prescriptions: - sertraline 100 mg Oral tablet - take 1 tablet ORAL route every 24 hours; 90 tablet; Refills: 0, Product sp4 Selection Permitted Signatures: Dispatcher [employer] Jovanna Casillas RN RN kl Anderson, Corey, MD MD cha Able, Lacie, RN RN lg3 Torie Ruelas RN RN kb3 Chevy Bradford MD MD sp4 Corrections: (The following items were deleted from the chart) 08/13 19:40 19:40 ACETAMINOPHEN+C.LAB.BRZ ordered. EDMS EDMS 19:40 19:40 BASIC METABOLIC PANEL+C.LAB.BRZ ordered. EDMS EDMS 19:40 19:40 CBC+H.LAB.BRZ ordered. EDMS EDMS 19:40 19:40 ETHANOL+C.LAB.BRZ ordered. EDMS EDMS 19:40 19:40 HEPATIC FUNCTION+C.LAB.BRZ ordered. EDMS EDMS 19:40 19:40 PROTIME (+INR)+COAG.LAB.BRZ ordered. EDMS EDMS 19:40 19:40 Test, Urine+UC.LAB.BRZ ordered. EDMS EDMS 19:40 19:40 PTT, ACTIVATED+COAG.LAB.BRZ ordered. EDMS EDMS 19:40 19:40 SALICYLATE+C.LAB.BRZ ordered. EDMS EDMS 19:40 19:40 Urinalysis+U.LAB.BRZ ordered. EDMS EDMS 19:40 19:40 URINE DRUG SCREEN+UC.LAB.BRZ ordered. EDMS EDMS 20:13 20:12 Allergies: Unknown; kb3 kb3
[2023-08-15 08:14] VITALS: BP 117/78; TEMP 97.8; O2SAT 96
--- NOTE | 2023-08-15 13:54 | EKG ---
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
== END 2023-08-15 07:39 | disposition home or self-care (01) ==
LOC: MERGE 19:38 → ER 19:38
DX: F12.159 Cannabis abuse with psychotic disorder, unspecified (principal); F10.129 Alcohol abuse with intoxication, unspecified; F20.9 Schizophrenia, unspecified; Z78.1 Physical restraint status
CPT/HCPCS: 96365; 93005; 85025; 81001; 80048; 36415; 84703; 81025; 85610; 80076; 85730; 80307; 96372; 99285; 96366; 80143; 80179; 82077; J3411; J7030

== ENCOUNTER 2024-06-12 18:47 | Emergency (ER) | payer SELFPAY, OTHER ==
[2024-06-12] MEDS ORDERED: ACETAMINOPHEN 500 MG TAB ONE (19:34)
[2024-06-12 19:49] LABS: Specific Gravity 1.028 (1.005-1.030)
[2024-06-12 19:50] LABS: Specific Gravity 1.028 (1.005-1.030); Urine Bacteria None Seen /HPF (<20); Urine Bilirubin NEGATIVE (Negative); Urine Blood Trace (Negative); Urine Clarity Extremely Turbid (Clear); Urine Color Light-Yellow (Yellow); Urine Culture Reflex Order NOT NEEDED; Urine Glucose NEGATIVE (Negative); Urine Ketones NEGATIVE (Negative); Urine Micro Reflex YN NO BILL MICROSCOPIC; Urine Mucus Slight /HPF (None Seen); Urine Nitrite NEGATIVE (Negative); Urine Protein NEGATIVE (Negative); Urine Urobilinogen Normal (Normal); Urine WBC <5 /HPF (<5); Urine Yeast (Budding) Trace /HPF (None Seen); Urine pH 6.5 (5.0-7.0)
[2024-06-12 20:02] LABS: Anion Gap 9.7 mEq/L (5.0-15.0); Potassium 3.7 mEq/L (3.5-5.1)
[2024-06-12 20:12] LABS: Absolute Basophils 0.1 K/uL (0-0.5); Absolute Eosinophils 0.1 K/uL (0-0.5); Absolute Lymphocytes (CBC) 2.3 K/uL (0.7-4.9); Absolute Monocytes 0.8 K/uL (0.1-1.3); Absolute Neutrophil 4.2 K/uL (1.8-8.0); Basophils % 0.8 % (0-1.3); Hemoglobin 10.5 g/dL (12.0-15.0); Lymphocytes % 30.4 % (15.3-44.8); MCH 27.4 pg (27.0-35.0); MCHC 31.9 g/dL (32.0-36.0); MCV 85.8 fL (80-100); MPV 9.2 fL (7.6-11.3); Monocytes % 10.6 % (3.3-12.3); Neutrophils % 57.2 % (41.7-73.7); Nucleated Red Blood Cells % 0.1 % (0-0); Platelets 223 thou/uL (152-406); RBC Red Blood Cell Count 3.85 M/uL (3.86-4.86); Red Cell Distribution Width 15.9 % (12.1-15.2)
[2024-06-12] MEDS ORDERED: methocarbamoL 500 MG TAB ONE (20:44)
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
[2024-06-12 22:08] VITALS: TEMP 98.4
[2024-06-12 22:10] VITALS: O2SAT 99
[2024-06-12 22:11] VITALS: BP 138/88
== END 2024-06-12 22:03 | disposition home or self-care (01) ==
LOC: ER 18:47
DX: R51.9 Headache, unspecified (principal); M54.2 Cervicalgia; M54.9 Dorsalgia, unspecified; R07.9 Chest pain, unspecified; V49.40XA Driver injured in collision with unspecified motor vehicles in traffic accident, initial encounter
CPT/HCPCS: 36415; 70450; 71250; 72125; 74176; 80048; 81001; 81025; 84703; 85025